=== PATIENT | male | born 1960 | race Caucasian/White ===

== ENCOUNTER 2016-07-10 11:30 | Inpatient (IN) ==
[2016-07-10] MEDS ORDERED: Ipratropium/Albuterol Neb 3 ML IH ONE ×2 (11:35→12:05)
[2016-07-10] MEDS ORDERED: Furosemide 40 MG/4 ML VIAL IVP ONE ×2 (11:35→12:05)
[2016-07-10] MEDS ORDERED: methylPREDNISolone 125 MG/2 ML VIAL IVP ONE (11:35)
[2016-07-10 11:49] LABS: ABG Base Excess 27.9 mEq/L (-2.0 to 3.0); ABG HCO3 59.2 mEQ/L (21-27); ABG PH 7.38 pH Units (7.32-7.45); ABG TCO2 > 60.0 mEq/L (20-26)
[2016-07-10 11:50] LABS: ABG Oxygen Saturation 72 % (95-98)
[2016-07-10 11:51] LABS: ABG PCO2 100 mmHg (35-45); ABG PO2 39 mmHg (85-104)
[2016-07-10 11:52] LABS: Blood Gas FiO2 44 %
--- NOTE | 2016-07-10 11:52 | Emergency Department Note ---
Disposition Clinical Impression: Acute on chronic respiratory failure with hypercapnia, Hypoxemia, Acute exacerbation of chronic obstructive airways disease CHF (congestive heart failure) Qualifiers: Congestive heart failure type: unspecified congestive heart failure type Congestive heart failure chronicity: acute on chronic Qualified Code(s): I50.9 - Heart failure, unspecified Disposition: Admitted As Inpatient Condition: Fair Time of Disposition: 13:19 SOB HPI - General Chief Complaint: ED Shortness of Breath/Dyspnea Stated Complaint: SOB, weak Time Seen by Provider: 07/10/16 11:35 Source: patient, family Limitations: no limitations Nursing Notes Reviewed: Yes Vital Signs Reviewed: Yes - History of Present Illness Patient is a 55-year-old male who presents to [facility] ED with a chief complaint of difficulty breathing. States his symptoms started several days ago with a cough and he was seen at [facility] last night. He was given a breathing treatment, steroids, instructed to use his CPAP at home. Patient's states he is not very compliant with his CPAP at home. Past medical history significant for COPD and CHF, obesity hypoventilation, atrial fib. He was admitted to the ICU back in May for acute on chronic respiratory failure. On presentation to the emergency department, patient is not able to say more than 2 words at a time before breathing. He took an excessive amount of energy to just moved from the wheelchair to the bed. On 5 L of oxygen, patient was saturating 76%. Pt Subjective Complaint: shortness of breath, chest pain Onset (ago): day(s) Context: recent illness Severity: severe Consistency/Duration: gradually worsening Improves with: nothing Worsens with: nothing Known history of: COPD, congestive heart failure Associated symptoms: Reports: chest pain, cough. Denies: fever, nausea/vomiting , abdominal pain Treatment prior to arrival: oxygen, bronchodilator Cough present: No - Related Data Home oxygen amount: CPAP (and 5L nasal cannula O2) Home Medications Medication Instructions Recorded Confirmed Amiodarone [Cordarone] 200 mg PO BID 05/04/15 05/23/16 Atorvastatin Calcium [Lipitor] 80 mg PO DAILY 05/04/15 05/23/16 Fluticasone Propionate Nasal 50 mcg NS DAILY 05/04/15 05/23/16 [Flonase] Furosemide [Lasix] 20 mg PO BID 05/04/15 05/23/16 Multivitamin/Ferrous Sulfate 1 tab PO DAILY 05/04/15 05/23/16 [One-Daily Zjdoy-Nvz-Eqai Tab] Fluticasone/Salmeterol [Advair Hfa 1 puff IH BID 05/05/16 05/23/16 45-21 Mcg Inhaler] Potassium Chloride [Klor-Con 10] 20 meq PO DAILY 05/05/16 05/23/16 Warfarin [Coumadin] 5 mg PO MOTUWETHFRSA 05/05/16 05/23/16 Warfarin perPT [Coumadin perPT] 7 mg PO WRIGHT 05/05/16 05/23/16 Previous Rx's Medication Instructions Recorded Albuterol Neb [Proventil Neb] 2.5 mg IH Q4HR PRN 14 Days 05/07/16 Citalopram [CeleXA] 40 mg PO DAILY #20 tablet 05/28/16 Oxygen 5 l IH AD #0 05/28/16 PredniSONE 30 mg PO DAILY 9 Days 05/28/16 Cephalexin [Keflex] 500 mg PO BID #20 capsule 07/09/16 LORazepam [Ativan] 1 mg PO TID PRN #6 tablet 07/09/16 Allergies Allergy/AdvReac Type Severity Reaction Status Date / Time No Known Drug Allergies Allergy See Verified 05/22/16 18:38 Comments All systems ED: reviewed and negative except as stated. Past Medical History - Past Medical History Attestation: Yes The following information was validated with the patient. Source: patient Medical history: Reports: atrial fibrillation, CHF, COPD, other Surgical history: Reports: pacemaker/AICD Psychiatric history: Reports: depression - Social History Smoking Status: Former smoker Smokeless Tobacco Status: No Alcohol use: Reports: none Drug use: Reports: none Physical Exam - General Limitations: no limitations General appearance: alert, anxious - Head Head exam: atraumatic, normocephalic, normal inspection - Eye Eye exam: Present: normal appearance, PERRL, EOMI - ENT ENT exam: normal exam, normal oropharynx, mucous membranes moist - Neck Neck exam: Present: normal inspection, full ROM, trachea midline - Chest Chest inspection: Present: normal inspection, symmetric chest wall rise - Respiratory Respiratory exam: Present: other (Decreased breath sounds bilaterally) - Cardiovascular Cardiovascular exam: Present: regular rate, normal rhythm, normal heart sounds - Abdominal Exam Abdominal exam: Present: soft, Non-Tender. Absent: tenderness, distention, guarding, rebound, rigidity - Extremities Exam Extremities exam: Present: normal inspection, full ROM. Absent: tenderness, pedal edema - Expanded Lower Extremity Exam Lower leg exam: Present: other (Venous stasis dermatitis) - Back Exam Back exam: Present: normal inspection, full ROM. Absent: tenderness - Neurological Exam Neurological exam: Present: alert, oriented X3 - Psychiatric Psychiatric exam: Present: normal affect, normal mood - Skin Skin exam: Present: warm, dry, intact, normal color Course Course Narrative: Patient seen and examined. Difficulty breathing for the last few days. Suspect COPD versus CHF exacerbation. 3 DuoNeb treatments ordered. We will place patient on BiPAP. Cardiopulmonary workup initiated. - Reevaluation(s) Reevaluation #1: Lab work shows mildly elevated lactic acid of 2.5, troponin 0.00, BNP in the 200s. Patient currently on BiPAP. Patient does have an elevated d-dimer of 1222. I do not feel like patient would not tolerate a CT of his chest at this time. Due to his hypoxemia with his PaO2 at 39, we will go ahead and do a VQ scan to rule out pulmonary embolus. We will admit for acute on chronic respiratory failure. I spoke with hospitalist Dr. Donald who has accepted patient for admission. Time: 13:18 Vital Signs Temperature 98.1 F 07/10/16 11:31 Pulse Rate 95 07/10/16 11:31 Respiratory Rate 30 07/10/16 11:31 Blood Pressure 136/91 07/10/16 11:31 O2 Sat by Pulse Oximetry 64 L 07/10/16 11:31 Temperature 98.1 F 07/10/16 11:31 Pulse Rate 70 07/10/16 12:45 Respiratory Rate 28 07/10/16 12:45 Blood Pressure 144/84 07/10/16 12:45 O2 Sat by Pulse Oximetry 96 07/10/16 12:45 Oxygen Delivery Oxygen Delivery Bipap Shortness of Breath/Dyspnea - Medical Records Medical records reviewed: Yes I reviewed the patient's medical records. - Lab Data Lab results reviewed: Yes I reviewed the patient's lab results. Result diagrams: 07/10/16 11:50 07/10/16 11:50 Lab Results 07/10/16 07/10/16 07/10/16 Range/Units 11:42 11:50 11:50 WBC 11.2 H (4.3-11.1) K/mcL RBC 4.01 L (4.19-5.50) M/mcL Hgb 10.2 L (12.9-16.9) g/dL Hct 37.0 L (37.5-50.1) % MCV 92.3 (83.0-100.0) fL MCH 25.4 L (28.0-33.3) pg MCHC 27.6 L (31.6-35.5) g/dL RDW 15.4 H (11.5-14.5) % Plt Count 243 (140-400) K/mcL MPV 9.7 (9.4-12.4) fL Immature Gran % 0.6 (0-4) % Seg Neutrophils % 88.1 % Lymphocytes % 5.0 % Monocytes % 6.1 % Eosinophils % 0.1 % Basophils % 0.1 % Neutrophils # 9.9 H (1.6-8.9) K/mcL Lymphocytes # 0.6 (0.6-4.6) K/mcL Monocytes # 0.7 (0.0-1.3) K/mcL Eosinophils # 0.0 (0.0-0.6) K/mcL Basophils # 0.0 (0.0-0.2) K/mcL Platelet Estimate Normal (Normal) Hypochromasia Present A (Not Present) Anisocytosis 2+ A (Not Present) Microcytosis Present A (Not Present) D-Dimer 1222 H (0-500) ng/mLFEU ABG pH 7.38 (7.32-7.45) pH Units ABG pCO2 100 H* (35-45) mmHg ABG pO2 39 L* (85-104) mmHg ABG HCO3 59.2 H (21-27) mEQ/L ABG Total CO2 > 60.0 H (20-26) mEq/L ABG O2 Saturation 72 L (95-98) % ABG Base Excess 27.9 H (-2.0 to 3.0) mEq/L Blood Gas Modality NC Inspired O2 44 % Sodium (136-145) mEq/L Potassium (3.5-4.5) mEq/L Chloride (98-109) mEq/L Carbon Dioxide (19-29) mEq/L BUN (8-26) mg/dL Creatinine (0.72-1.25) mg/dL Est GFR ( Amer) (> 60) Est GFR (Non-Af Amer) (> 60) BUN/Creatinine Ratio (6-26) Glucose (70-99) mg/dL Calculated Osmolality (280-300) Lactic Acid (0.5-2.2) mmol/L Calcium (8.6-10.8) mg/dL Troponin I (0-0.03) ng/mL B-Natriuretic Peptide (0-100) pg/mL 07/10/16 07/10/16 07/10/16 Range/Units 11:50 11:50 11:50 WBC (4.3-11.1) K/mcL RBC (4.19-5.50) M/mcL Hgb (12.9-16.9) g/dL Hct (37.5-50.1) % MCV (83.0-100.0) fL MCH (28.0-33.3) pg MCHC (31.6-35.5) g/dL RDW (11.5-14.5) % Plt Count (140-400) K/mcL MPV (9.4-12.4) fL Immature Gran % (0-4) % Seg Neutrophils % % Lymphocytes % % Monocytes % % Eosinophils % % Basophils % % Neutrophils # (1.6-8.9) K/mcL Lymphocytes # (0.6-4.6) K/mcL Monocytes # (0.0-1.3) K/mcL Eosinophils # (0.0-0.6) K/mcL Basophils # (0.0-0.2) K/mcL Platelet Estimate (Normal) Hypochromasia (Not Present) Anisocytosis (Not Present) Microcytosis (Not Present) D-Dimer (0-500) ng/mLFEU ABG pH (7.32-7.45) pH Units ABG pCO2 (35-45) mmHg ABG pO2 (85-104) mmHg ABG HCO3 (21-27) mEQ/L ABG Total CO2 (20-26) mEq/L ABG O2 Saturation (95-98) % ABG Base Excess (-2.0 to 3.0) mEq/L Blood Gas Modality Inspired O2 % Sodium 144 (136-145) mEq/L Potassium 4.8 H (3.5-4.5) mEq/L Chloride 89 L (98-109) mEq/L Carbon Dioxide 48 H* (19-29) mEq/L BUN 24 (8-26) mg/dL Creatinine 0.81 (0.72-1.25) mg/dL Est GFR ( Amer) > 60 (> 60) Est GFR (Non-Af Amer) > 60 (> 60) BUN/Creatinine Ratio 30 H (6-26) Glucose 130 H (70-99) mg/dL Calculated Osmolality 304 H (280-300) Lactic Acid 2.6 H (0.5-2.2) mmol/L Calcium 9.2 (8.6-10.8) mg/dL Troponin I 0.00 (0-0.03) ng/mL B-Natriuretic Peptide (0-100) pg/mL 07/10/16 Range/Units 11:50 WBC (4.3-11.1) K/mcL RBC (4.19-5.50) M/mcL Hgb (12.9-16.9) g/dL Hct (37.5-50.1) % MCV (83.0-100.0) fL MCH (28.0-33.3) pg MCHC (31.6-35.5) g/dL RDW (11.5-14.5) % Plt Count (140-400) K/mcL MPV (9.4-12.4) fL Immature Gran % (0-4) % Seg Neutrophils % % Lymphocytes % % Monocytes % % Eosinophils % % Basophils % % Neutrophils # (1.6-8.9) K/mcL Lymphocytes # (0.6-4.6) K/mcL Monocytes # (0.0-1.3) K/mcL Eosinophils # (0.0-0.6) K/mcL Basophils # (0.0-0.2) K/mcL Platelet Estimate (Normal) Hypochromasia (Not Present) Anisocytosis (Not Present) Microcytosis (Not Present) D-Dimer (0-500) ng/mLFEU ABG pH (7.32-7.45) pH Units ABG pCO2 (35-45) mmHg ABG pO2 (85-104) mmHg ABG HCO3 (21-27) mEQ/L ABG Total CO2 (20-26) mEq/L ABG O2 Saturation (95-98) % ABG Base Excess (-2.0 to 3.0) mEq/L Blood Gas Modality Inspired O2 % Sodium (136-145) mEq/L Potassium (3.5-4.5) mEq/L Chloride (98-109) mEq/L Carbon Dioxide (19-29) mEq/L BUN (8-26) mg/dL Creatinine (0.72-1.25) mg/dL Est GFR ( Amer) (> 60) Est GFR (Non-Af Amer) (> 60) BUN/Creatinine Ratio (6-26) Glucose (70-99) mg/dL Calculated Osmolality (280-300) Lactic Acid (0.5-2.2) mmol/L Calcium (8.6-10.8) mg/dL Troponin I (0-0.03) ng/mL B-Natriuretic Peptide 217 H (0-100) pg/mL - Radiology Data Radiology results reviewed: Yes I reviewed the patient's radiology results. - EKG Data EKG attestation: Yes I reviewed and interpreted this EKG. EKG results narrative: EKG done at 1143 shows normal sinus rhythm with a rate of [address] elevation or depression. Right axis deviation. Critical Care Time Critical Care Time: Yes Total Critical Care Time: 35 Attestation: Critical care time to manage this patient is respiratory distress was 35 minutes , this was exclusive of any separately billable procedures. Attestation Statement - Attestation Attestation: Patient was seen with resident physician. I reviewed the history, physical, assessment and plan, and agree with the findings. I also personally evaluated this patient and had [id number] time with this patient. 55-year-old male presents to the emergency department with respiratory distress. He is brought in via private vehicle with a chief complaint of increasing shortness of breath the last several days. Apparently he was seen in the hospital recently was diagnosed with CHF. He says though now he thinks this is his COPD. Patient is oxygen dependent at home he says he has somewhat between 5 and 10 L continuously. He also thinks that his legs might be increasing in swelling in diameter but they are always swollen since difficult to tell. He denies chest pain. On examination ENT is normal heart is regular rhythm and rate. Lungs no wheezing could be auscultated there is poor air exchanges and he does have crackles especially in the bases. He also has increased work of breathing. Extremities patient has marked swelling of the lower extremities which appears to be chronic in nature. He has skin changes associated with chronic swelling of the lower extremities. Neurologically patient is alert and oriented. Respiratory was contacted immediately upon arrival to place the patient on BiPAP to help his labored respiratory problem. Chest x-ray seems to indicate more CHF, he was treated with Lasix and breathing treatments. We will do complete cardiac and CHF workup, and he will require hospitalization for management of fluid overload and respiratory distress. His ABG demonstrates some respiratory compensation. I agree with the resident physician assessment and plan. Patient to receive CT scan of the chest on way to the floor. Case was discussed with hospitalist and admission was arranged.
[2016-07-10 12:06] LABS: Basophils % 0.1 %; Hemoglobin 10.2 g/dL (12.9-16.9); Immature Granulocytes % 0.6 % (0-4)
[2016-07-10 12:07] LABS: Eosinophils % 0.1 %; Lymphocytes # 0.6 K/mcL (0.6-4.6); Mean Corpuscular HGB Conc 27.6 g/dL (31.6-35.5); Mean Corpuscular Hemoglobin 25.4 pg (28.0-33.3); Mean Corpuscular Volume 92.3 fL (83.0-100.0); Mean Platelet Volume 9.7 fL (9.4-12.4); Monocytes # 0.7 K/mcL (0.0-1.3); Monocytes % 6.1 %; Neutrophils # 9.9 K/mcL (1.6-8.9); Platelet Count 243 K/mcL (140-400); Red Blood Count 4.01 M/mcL (4.19-5.50); Red Cell Distribution Width 15.4 % (11.5-14.5); Segmented Neutrophils % 88.1 %
[2016-07-10 12:19] LABS: BUN/Creatinine Ratio 30 (6-26); Blood Urea Nitrogen 24 mg/dL (8-26); Calcium 9.2 mg/dL (8.6-10.8); Chloride 89 mEq/L (98-109); Glucose 130 mg/dL (70-99); Osmolality,Calculated 304 (280-300); Potassium 4.8 mEq/L (3.5-4.5); Sodium 144 mEq/L (136-145); eGFR For African Americans > 60 (> 60); eGFR For Non-African Americans > 60 (> 60)
[2016-07-10 12:21] LABS: Carbon Dioxide 48 mEq/L (19-29)
[2016-07-10 12:27] LABS: Anisocytosis 2+ (Not Present); Hypochromasia Present (Not Present); Microcytosis Present (Not Present)
[2016-07-10 12:28] LABS: Platelet Estimate Normal (Normal)
[2016-07-10] MEDS ORDERED: Naloxone 0.4 MG/ML INJ IVP PRN (15:35)
[2016-07-10] MEDS ORDERED: Ondansetron 4 MG/2 ML VIAL IVP PRN (15:35)
[2016-07-10] MEDS ORDERED: Ipratropium/Albuterol Neb 3 ML IH PRN (15:40)
[2016-07-10] MEDS ORDERED: *HR* LORazepam 1 MG TABLET PO PRN (15:40)
[2016-07-10] MEDS ORDERED: Warfarin perPT PO PRN (15:51)
--- NOTE | 2016-07-10 15:55 | Internal Med History&Physical ---
Date of Encounter: 07/10/16 Time of Encounter: 15:00 Assessment and Plan (1) Acute on chronic respiratory failure with hypercapnia Current visit: Yes Status: Acute -Likely secondary to CHF decompensation and COPD exacerbation -History of noncompliance with CPAP support at home -continue bipap support at this time -f/u repeat ABG -Started aggressive diuretic and IV steroid therapy -continue to monitor O2 sat -O2 sat goal: 89-92% (2) Acute exacerbation of chronic obstructive airways disease Current visit: Yes Status: Acute -continue IV steroids and bronchodilator support -continue bipap support with breaks for meals today -O2 supplementation as needed -goal O2 sat: 89-92%, current O2 sat: 93% -patient educated about the need to remain compliant with his home CPAP. (3) HCAP (healthcare-associated pneumonia) Current visit: Yes Status: Acute -CT chest findings consistent with pneumonia -Discharged from the hospital for the same complains less than two months ago, will treat as HCAP at this time -Leukocytosis likely secondary to HCAP -continue IV abx -f/u blood cultures (4) CHF exacerbation Current visit: Yes Status: Acute Last 2D echo was in May 2015 consistent with LVEF of 50-55% f/u repeat 2D echo Received 80mg IV lasix in ER with good urine output continue aggressive diuresis monitor I/Os monitor daily weights continue O2 supplementation as needed consider cardiology eval if clinically worsens Qualifiers: Congestive heart failure type: unspecified congestive heart failure type Qualified Code(s): I50.9 - Heart failure, unspecified (5) Atrial fibrillation Current visit: No Status: Chronic Rate controlled with Amiodarone Anticoagulated with Coumadin Follow up INR and continue coumadin with goal INR: 2-3 Qualifiers: Atrial fibrillation type: chronic Qualified Code(s): I48.2 - Chronic atrial fibrillation (6) HLD (hyperlipidemia) Current visit: No Status: Chronic continue home medications Qualifiers: Hyperlipidemia type: mixed hyperlipidemia Qualified Code(s): E78.2 - Mixed hyperlipidemia (7) Morbid obesity due to excess calories Current visit: No Status: Chronic (8) GAVIN (obstructive sleep apnea) Current visit: No Status: Chronic patient educated about the need to be compliant with CPAP overnight, he is willing to comply at this time (9) Obesity hypoventilation syndrome Current visit: No Status: Chronic (10) Wound abscess Current visit: No Status: Acute patient to follow up with dermatology after discharge continue daily wound care Qualifiers: Qualified Code(s): T81.4XXA - Infection following a procedure, initial encounter (11) DVT prophylaxis Current visit: Yes Status: Acute anticoagulated with Coumadin Internal Medicine - H&P: HPI Chief complaint: shortness of breath Admitted From: Home Plans for Post Hospital Care: Transfer Long-Term Facility History of present illness: Mr. Rubalcava is a 55 year old male with past medical history of COPD on home oxygen, CHF, A. fib on Coumadin, hyperlipidemia, obstructive sleep apnea, morbid obesity with brought to the ER for evaluation of worsening shortness of breath and bilateral lower extremity edema. Patient is currently saturating well on bipap and states he feels better since admission. He is AAO x 3 and able to communicate well. His , who is present at bedside, reports that patient is bed bound, only gets up to use the bathroom, bathes onces a week, and has been noncompliant with using his CPAP at home. He wears home oxygen but she states he continues to deteriorate every time there a lapses in him using CPAP overnight. She states that for the last few days he has had worsening LE edema until earlier today he couldn't breathe due to which they are to bring him to the ER. In the ER patient received 80 mg of IV Lasix, Solu-Medrol IVP, and nebulizer treatment. He was placed on BiPAP support with adequate relief of shortness of breath. As time he saturating well on BiPAP, denies any chest pain, palpitations, sore throat, cough, abdominal pain, nausea, vomiting, fever , or chills. Of Note patient has a skin abscess on left shoulder for which he has been trying to seek dermatological evaluation. As per his , this abscess is continuously draining and they do daily wound care. Patient and family request social work consult for for documentation of advance directives and living will prior to discharge. Past Med Surg Social Fam HX - Past Medical History Medical history: atrial fibrillation, CHF, COPD, other Psychiatric history: anxiety, depression - Past Surgical History Surgical History: pacemaker/AICD - Social History Smoking Status: Former smoker Packs per day: 1 Smokeless Tobacco Status: No Alcohol use: none Drug use: none - Family History Mother Family Member Ethnicity: Non- Living Status: Still Living Hx Family Cardiac Disorders: No Hx Family Respiratory Disorders: No Hx Family Cancer: Yes Hx Family GI Disorders: No Hx Family Endocrine Disorder: No Father Family Member Ethnicity: Non- Living Status: Hx Family Cancer: Yes Hx Family GI Disorders: No Hx Family Genitourinary Disorders: No Internal Medicine - H&P: Meds Amiodarone [Cordarone] 200 mg PO BID 05/04/15 [History] Atorvastatin Calcium [Lipitor] 80 mg PO DAILY 05/04/15 [History] Fluticasone Propionate Nasal [Flonase] 50 mcg NS DAILY 05/04/15 [History] Furosemide [Lasix] 20 mg PO BID 05/04/15 [History] Multivitamin/Ferrous Sulfate [One-Daily Jndsa-Yyu-Bmih Tab] 1 tab PO DAILY 05/04 [History] Fluticasone/Salmeterol [Advair Hfa 45-21 Mcg Inhaler] 1 puff IH BID 05/05/16 [ History] Potassium Chloride [Klor-Con 10] 20 meq PO DAILY 05/05/16 [History] Warfarin [Coumadin] 5 mg PO MOTUWETHFRSA 05/05/16 [History] Warfarin perPT [Coumadin perPT] 7 mg PO WRIGHT 05/05/16 [History] Albuterol Neb [Proventil Neb] 2.5 mg IH Q4HR PRN 14 Days 05/07/16 [Rx] Citalopram [CeleXA] 40 mg PO DAILY #20 tablet 05/28/16 [Rx] Oxygen 5 l IH AD #0 05/28/16 [Rx] PredniSONE 30 mg PO DAILY 9 Days 05/28/16 [Rx] Cephalexin [Keflex] 500 mg PO BID #20 capsule 07/09/16 [Rx] LORazepam [Ativan] 1 mg PO TID PRN #6 tablet 07/09/16 [Rx] Allergies No Known Drug Allergies Allergy (Verified 05/22/16 18:38) See Comments All Systems PM: A 10-system review of systems was performed and is negative for pertinent findings except as documented above in the HPI. - Constitutional Constitutional: as per HPI - Constitutional Vitals: Temp Pulse Resp BP Pulse Ox 98.4 F 71 20 148/99 90 L 07/10/16 14:31 07/10/16 14:31 07/10/16 14:31 07/10/16 14:31 07/10/16 14:31 General appearance: Present: A&O X 3, morbidly obese, no acute distress, answers questions appropriately - Head Head exam: Present: atraumatic, normocephalic - Eye Eye exam: Present: conjuntiva pink, sclera anicteric - Respiratory Respiratory exam: Present: decreased breath sounds. Absent: wheezes - Cardiovascular Cardiovascular exam: Present: RRR, +S1, +S2 - GI/Abdominal GI/Abdominal exam: Present: distended (morbidly obese), normal bowel sounds. Absent: tenderness - Extremities Exam Extremities exam: Present: pedal edema (bilateral 2+ LE edema extending to mid flowers), warm, radial pulses palpable and symetrical. Absent: calf tenderness - Neurological Exam Neurological exam: Present: alert, oriented X3, no focal deficits - Psychiatric Psychiatric exam: Present: normal affect, normal mood Internal Med - H&P Results - Labs CBC & Chem 7: 07/10/16 11:50 07/10/16 11:50 - Impressions ITS Impressions Chest CTA 07/10/16 13:21 IMPRESSION: No CT evidence of pulmonary embolism as above. Small to moderate bilateral pleural effusions with associated bilateral lower lobe dependent consolidation, likely passive atelectasis. Pneumonia cannot be completely excluded. Diffuse bilateral pulmonary parenchymal ground-glass opacity as well as some interlobular septal thickening most compatible with pulmonary edema. D/ / Sissy Clay Cha, MD / Sissy Clay Cha, MD Interpreting Provider: Sissy Clay Cha, MD
[2016-07-10 16:17] LABS: INR 1.5; Prothrombin Time 16.5 Seconds (9.4-12.1)
[2016-07-10] MEDS: methylPREDNISolone 125 MG/2 ML VIAL IVP SCH ×2 (16:17→23:36)
[2016-07-10] MEDS: Piperacillin/Tazobactam 3.375 GM in D5% in Water (Mini-Bag+) 100 ML IVPB SCH ×2 (16:17→23:34)
[2016-07-10] MEDS: Vancomycin 2,000 MG in D5% in Water 500 ML IVPB SCH (16:18)
[2016-07-10] MEDS: Ipratropium/Albuterol Neb 3 ML IH SCH ×2 (17:01→21:00)
[2016-07-10 17:10] LABS: ABG HCO3 49.8 mEQ/L (21-27); ABG PH 7.37 pH Units (7.32-7.45); ABG TCO2 68.8 mEq/L (20-26)
[2016-07-10 17:11] LABS: ABG Base Excess 32.7 mEq/L (-2.0 to 3.0); ABG Oxygen Saturation 72 % (95-98)
[2016-07-10 17:12] LABS: Blood Gas FiO2 50 %
[2016-07-10 17:13] LABS: ABG PCO2 113 mmHg (35-45); ABG PO2 39 mmHg (85-104)
[2016-07-10] MEDS ORDERED: *HR* Warfarin 7.5 MG TABLET PO ONE (17:45)
[2016-07-10] MEDS: *HR* Amiodarone 200 MG TABLET PO SCH (19:37)
[2016-07-10] MEDS: Furosemide 40 MG/4 ML VIAL IVP SCH (19:38)
[2016-07-10] MEDS: Budesonide/Formoterol 160/4.5 MDI IH SCH (21:00)
[2016-07-11] MEDS: Ipratropium/Albuterol Neb 3 ML IH SCH ×7 (00:48→23:08)
[2016-07-11 03:43] LABS: INR 1.7; Prothrombin Time 18.1 Seconds (9.4-12.1)
[2016-07-11 03:48] LABS: Monocytes # 0.3 K/mcL (0.0-1.3); Monocytes % 2.5 %; Red Blood Count 4.22 M/mcL (4.19-5.50)
[2016-07-11 03:49] LABS: Basophils % 0.1 %; Hematocrit 38.7 % (37.5-50.1); Hemoglobin 10.7 g/dL (12.9-16.9); Immature Granulocytes % 0.7 % (0-4); Lymphocytes # 0.3 K/mcL (0.6-4.6); Lymphocytes % 3.1 %; Mean Corpuscular HGB Conc 27.6 g/dL (31.6-35.5); Mean Corpuscular Hemoglobin 25.4 pg (28.0-33.3); Mean Corpuscular Volume 91.7 fL (83.0-100.0); Mean Platelet Volume 9.8 fL (9.4-12.4); Neutrophils # 9.7 K/mcL (1.6-8.9); Platelet Count 239 K/mcL (140-400); Red Cell Distribution Width 15.2 % (11.5-14.5); Segmented Neutrophils % 93.6 %
[2016-07-11 03:55] LABS: BUN/Creatinine Ratio 28 (6-26); Blood Urea Nitrogen 26 mg/dL (8-26); Calcium 9.1 mg/dL (8.6-10.8); Chloride 85 mEq/L (98-109); Glucose 172 mg/dL (70-99); Magnesium 2.6 mg/dL (1.6-2.6); Osmolality,Calculated 305 (280-300); Phosphorous 4.7 mg/dL (2.3-4.7); Potassium 4.7 mEq/L (3.5-4.5); Sodium 143 mEq/L (136-145); eGFR For African Americans > 60 (> 60); eGFR For Non-African Americans > 60 (> 60)
[2016-07-11] MEDS: Vancomycin 2,000 MG in D5% in Water 500 ML IVPB SCH ×2 (03:57→16:08)
[2016-07-11 04:07] LABS: Carbon Dioxide 49 mEq/L (19-29); Hypochromasia Present (Not Present)
[2016-07-11 04:08] LABS: Platelet Estimate Normal (Normal); Polychromasia 2+ (Not Present)
[2016-07-11] MEDS: Budesonide/Formoterol 160/4.5 MDI IH SCH ×2 (08:18→20:17)
[2016-07-11] MEDS: Piperacillin/Tazobactam 3.375 GM in D5% in Water (Mini-Bag+) 100 ML IVPB SCH (09:29)
[2016-07-11] MEDS: methylPREDNISolone 125 MG/2 ML VIAL IVP SCH ×3 (09:30→23:40)
[2016-07-11] MEDS: Furosemide 40 MG/4 ML VIAL IVP SCH ×2 (09:30→21:14)
[2016-07-11] MEDS: Fluticasone Propionate Nasal 50 MCG/SPRAY BOTTLE NS SCH (09:34)
[2016-07-11] MEDS: *HR* Amiodarone 200 MG TABLET PO SCH ×2 (09:35→21:14)
--- NOTE | 2016-07-11 10:56 | Internal Med Progress Note ---
Date of Encounter: 07/11/16 Time of Encounter: 10:54 - Assessment and plan (1) Acute exacerbation of chronic obstructive airways disease Current Visit: Yes Status: Acute Assessment and plan: Acute on chronic hypoxic and hypercapnic respiratory failure due to combination of healthcare associated pneumonia present upon admission with acute diastolic CHF exacerbation Switch Zosyn to cefepime day 1 Continue vancomycin day 2 Continue Lasix IV, strict I's and O's and daily weight Echocardiogram ordered Continue Solu-Medrol, and oxygen therapy (2) Acute on chronic respiratory failure with hypercapnia Current Visit: Yes Status: Acute (3) CHF exacerbation Current Visit: Yes Status: Acute Qualifiers: Congestive heart failure type: diastolic Qualified Code(s): I50.33 - Acute on chronic diastolic (congestive) heart failure (4) HCAP (healthcare-associated pneumonia) Current Visit: Yes Status: Acute (5) Atrial fibrillation Current Visit: No Status: Chronic Assessment and plan: Continue Coumadin, now therapeutic May start metoprolol Qualifiers: Atrial fibrillation type: chronic Qualified Code(s): I48.2 - Chronic atrial fibrillation (6) Depression Current Visit: No Status: Chronic Assessment and plan: Continue Celexa Qualifiers: Depression Type: unspecified Qualified Code(s): F32.9 - Major depressive disorder, single episode, unspecified (7) HLD (hyperlipidemia) Current Visit: No Status: Chronic Qualifiers: Hyperlipidemia type: mixed hyperlipidemia Qualified Code(s): E78.2 - Mixed hyperlipidemia (8) Hypoventilation associated with obesity syndrome Current Visit: No Status: Chronic (9) Morbid obesity due to excess calories Current Visit: No Status: Chronic Assessment and plan: High risk due to respiratory failure - Time Spent With Patient Greater than 35 minutes - Subjective Interval history: Still feeling very short of breath, bringing up less phlegm, no abdominal pain, no dysuria, no fevers overnight, no diarrhea. Has been gaining weight - Constitutional Vitals: Temp Pulse Resp BP Pulse Ox 98.0 F 74 16 155/94 93 L 07/11/16 07:17 07/11/16 07:17 07/11/16 08:18 07/11/16 07:17 07/11/16 08:18 General appearance: Present: A&O X 3, morbidly obese, no acute distress, answers questions appropriately - Head Head exam: Present: atraumatic, normocephalic - Eye Eye exam: Present: PERRL, conjuntiva pink, sclera anicteric Pupils: Present: PERRL - Neck Neck exam general surgery: Present: supple, trachea midline. Absent: lymphadenopathy - Respiratory Respiratory exam: Present: CTAB, rales (Bibasilar blunted sounds with diffuse crackles). Absent: accessory muscle use, rhonchi, wheezes - Cardiovascular Cardiovascular exam: Present: RRR, +S1, +S2. Absent: diastolic murmur, gallop, rubs, systolic murmur - GI/Abdominal GI/Abdominal exam: Present: normal bowel sounds, soft, no peritoneal signs. Absent: distended, tenderness - Extremities Exam Extremities exam: Present: pedal edema, warm, radial pulses palpable and symetrical. Absent: calf tenderness, cyanotic Additional comments: +2 edema with chronic changes of the skin - Neurological Exam Neurological exam: Present: CN II-XII intact, oriented X3, no focal deficits. Absent: pronater drift, facial droop, speech deficit - Skin Skin exam: Present: dry, intact Internal Medicine: Result - Labs CBC & Chem 7: 07/11/16 03:21 07/11/16 03:21 Labs: Short CBC 07/11/16 Range/Units 03:21 WBC 10.4 (4.3-11.1) K/mcL Hgb 10.7 L (12.9-16.9) g/dL Hct 38.7 (37.5-50.1) % Plt Count 239 (140-400) K/mcL Neutrophils # 9.7 H (1.6-8.9) K/mcL BMP 07/11/16 03:21 Sodium 143 Potassium 4.7 H Chloride 85 L Carbon Dioxide 49 H* BUN 26 Creatinine 0.94 Glucose 172 H Calcium 9.1 - ABG Interpretation ABG results: ABG ABG pH 7.37 pH Units (7.32-7.45) 07/10/16 17:00 ABG pCO2 113 mmHg (35-45) H* 07/10/16 17:00 ABG pO2 39 mmHg (85-104) L* 07/10/16 17:00 ABG O2 Saturation 72 % (95-98) L 07/10/16 17:00 PT/INR, D-dimer PT 18.1 Seconds (9.4-12.1) H 07/11/16 03:21 D-Dimer 1222 ng/mLFEU (0-500) H 07/10/16 11:50 Consult Discharge Plan - Plan Referrals: NO,PCP [Primary Care Provider] -
[2016-07-11] MEDS ORDERED: Perflutren Lipid Microsphere 1.3 ML in 0.9 % Sodium Chloride 8.7 ML IVP ONE (12:05)
[2016-07-11] MEDS: Cefepime HCl 1,000 MG in D5% in Water (Mini-Bag+) 100 ML IVPB SCH ×2 (12:30→23:41)
--- NOTE | 2016-07-11 15:00 | Electrocardiograph Report ---
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
[2016-07-11] MEDS ORDERED: *HR* Warfarin 5 MG TABLET PO SCH (18:00)
[2016-07-11] MEDS ORDERED: *HR* OxyCODONE Immed Rel 5 MG TABLET PO PRN (22:36)
[2016-07-12 02:20] LABS: Hemoglobin 10.4 g/dL (12.9-16.9)
[2016-07-12 02:22] LABS: Mean Corpuscular HGB Conc 27.4 g/dL (31.6-35.5); Mean Corpuscular Hemoglobin 24.5 pg (28.0-33.3); Mean Corpuscular Volume 89.6 fL (83.0-100.0); Mean Platelet Volume 9.9 fL (9.4-12.4); Platelet Count 249 K/mcL (140-400); Red Blood Count 4.24 M/mcL (4.19-5.50)
[2016-07-12 02:24] LABS: INR 2.3
[2016-07-12 02:36] LABS: BUN/Creatinine Ratio 36 (6-26); Blood Urea Nitrogen 29 mg/dL (8-26); Calcium 8.9 mg/dL (8.6-10.8); Chloride 84 mEq/L (98-109); Glucose 162 mg/dL (70-99); Osmolality,Calculated 303 (280-300); Potassium 4.2 mEq/L (3.5-4.5); Sodium 142 mEq/L (136-145); eGFR For African Americans > 60 (> 60); eGFR For Non-African Americans > 60 (> 60)
[2016-07-12 02:40] LABS: Carbon Dioxide 48 mEq/L (19-29)
[2016-07-12] MEDS: Vancomycin 2,000 MG in D5% in Water 500 ML IVPB SCH ×2 (03:33→16:34)
[2016-07-12] MEDS: Ipratropium/Albuterol Neb 3 ML IH SCH ×5 (05:29→20:33)
[2016-07-12 05:55] LABS: ABG Base Excess 32.7 mEq/L (-2.0 to 3.0); ABG HCO3 63.2 mEQ/L (21-27); ABG Oxygen Saturation 96 % (95-98); ABG PH 7.45 pH Units (7.32-7.45); ABG PO2 80 mmHg (85-104); Blood Gas FiO2 50 %
[2016-07-12 05:56] LABS: ABG PCO2 91 mmHg (35-45)
[2016-07-12] MEDS: Budesonide/Formoterol 160/4.5 MDI IH SCH ×2 (08:10→20:33)
[2016-07-12] MEDS ORDERED: Aminoglycoside Consult 1 EACH MC ONE (08:16)
[2016-07-12] MEDS: Furosemide 40 MG/4 ML VIAL IVP SCH ×2 (08:25→20:56)
[2016-07-12] MEDS: methylPREDNISolone 125 MG/2 ML VIAL IVP SCH ×2 (08:25→16:34)
[2016-07-12] MEDS: *HR* Amiodarone 200 MG TABLET PO SCH ×2 (08:26→20:58)
[2016-07-12] MEDS: *HR* LORazepam 1 MG TABLET PO SCH ×4 (08:26→21:05)
[2016-07-12] MEDS: Cefepime HCl 1,000 MG in D5% in Water (Mini-Bag+) 100 ML IVPB SCH (11:48)
[2016-07-12] MEDS: Lactobacillus 1 EACH CAP.SPRINK PO SCH ×2 (11:48→20:58)
[2016-07-12] MEDS: Fluticasone Propionate Nasal 50 MCG/SPRAY BOTTLE NS SCH (11:48)
[2016-07-12] MEDS ORDERED: *HR* Warfarin 2.5 MG TABLET PO ONE (18:00)
[2016-07-12 18:21] LABS: ABG Base Excess 28.4 mEq/L (-2.0 to 3.0); ABG Oxygen Saturation 96 % (95-98); ABG PH 7.36 pH Units (7.32-7.45); ABG PO2 86 mmHg (85-104); ABG TCO2 64.3 mEq/L (20-26)
[2016-07-12 18:23] LABS: ABG PCO2 108 mmHg (35-45); Blood Gas FiO2 60 %
--- NOTE | 2016-07-12 18:49 | Internal Med Progress Note ---
Date of Encounter: 07/12/16 Time of Encounter: 13:10 - Assessment and plan (1) Acute exacerbation of chronic obstructive airways disease Current Visit: Yes Status: Acute Assessment and plan: Continue Solu-Medrol, bronchodilators and oxygen therapy (2) Acute on chronic respiratory failure with hypercapnia Current Visit: Yes Status: Acute Assessment and plan: Possibly due to combination of acute exacerbation of diastolic CHF, COPD exacerbation and obesity hypoventilation syndrome. CTA chest is not conclusive for pneumonia. Continue BiPAP therapy, intravenous Lasix, Solu-Medrol and bronchodilators. (3) CHF exacerbation Current Visit: Yes Status: Acute Assessment and plan: Continue with intravenous Lasix. Monitor intake and output. Consider cardiology consultation. Qualifiers: Congestive heart failure type: diastolic Qualified Code(s): I50.33 - Acute on chronic diastolic (congestive) heart failure (4) DVT prophylaxis Current Visit: No Status: Acute Assessment and plan: Patient is on warfarin with therapeutic INR. No other anticoagulation required at this time. (5) Obesity hypoventilation syndrome Current Visit: No Status: Chronic Assessment and plan: Patient had poor compliance with CPAP therapy at home. Patient is counseled to use the CPAP on regular basis (6) Atrial fibrillation Current Visit: No Status: Chronic Assessment and plan: Rate controlled. Continue amiodarone and Coumadin - INR is therapeutic Qualifiers: Atrial fibrillation type: chronic Qualified Code(s): I48.2 - Chronic atrial fibrillation - Subjective Interval history: Pt is seen and examined at the bedside and chart reviewed. Pt reports feeling better today. He reports some cough with expectoration. Shortness of breath is improving. Denies significant pain, nausea, vomiting, fever, chills. - Constitutional Vitals: Temp Pulse Resp BP Pulse Ox 98.8 F 69 14 143/89 96 07/12/16 15:52 07/12/16 15:52 07/12/16 16:21 07/12/16 16:21 07/12/16 16:21 General appearance: Present: A&O X 3, morbidly obese, no acute distress, answers questions appropriately Exam: General: Obese. Not in acute distress at the time of my evaluation Lungs: Clear to auscultation Cardiac: Bilateral crackles heard. No significant murmurs Abdomen: Obese. Soft, non tender. Bowel sounds present. Umbilical hernia present. Neurological: Alert and oriented. No gross localizing deficits Psych: Not agrressive or agitated Extremities: chronic leg edema present Skin: Dry skin Internal Medicine: Result - Labs CBC & Chem 7: 07/12/16 01:42 07/12/16 01:42 Labs: Short CBC 07/12/16 Range/Units 01:42 WBC 11.5 H (4.3-11.1) K/mcL Hgb 10.4 L (12.9-16.9) g/dL Hct 38.0 (37.5-50.1) % Plt Count 249 (140-400) K/mcL BMP 07/12/16 01:42 Sodium 142 Potassium 4.2 Chloride 84 L Carbon Dioxide 48 H* BUN 29 H Creatinine 0.80 Glucose 162 H Calcium 8.9 Microbiology 07/10/16 13:05 Urine,Catheterized Urine Culture - Final No growth. - ABG Interpretation ABG results: ABG ABG pH 7.36 pH Units (7.32-7.45) 07/12/16 18:00 ABG pCO2 108 mmHg (35-45) H* 07/12/16 18:00 ABG pO2 86 mmHg (85-104) 07/12/16 18:00 ABG O2 Saturation 96 % (95-98) 07/12/16 18:00 PT/INR, D-dimer PT 25.0 Seconds (9.4-12.1) H 07/12/16 01:42 D-Dimer 1222 ng/mLFEU (0-500) H 07/10/16 11:50 - Impressions ITS Impressions Chest X-Ray 07/10/16 11:35 IMPRESSION: 1. Unchanged congestive heart failure. D/ / Donald Kahn MD / Donald Kahn MD Interpreting Provider: Donald Kahn MD Chest CTA 07/10/16 13:21 IMPRESSION: No CT evidence of pulmonary embolism as above. Small to moderate bilateral pleural effusions with associated bilateral lower lobe dependent consolidation, likely passive atelectasis. Pneumonia cannot be completely excluded. Diffuse bilateral pulmonary parenchymal ground-glass opacity as well as some interlobular septal thickening most compatible with pulmonary edema. D/ / Sissy Clay Cha, MD / Sissy Clay Cha, MD Interpreting Provider: Sissy Clay Cha, MD Consult Discharge Plan - Plan Referrals: Jay Cool MD [NPP Staff] - 07/21/16 10:00 am NO,PCP [Primary Care Provider] - Erik Zayas DO [Partnered Physician] - (sent web request on 07-11-16 @ [phone])
[2016-07-12 20:37] LABS: ABG Base Excess 28.1 mEq/L (-2.0 to 3.0); ABG HCO3 60.4 mEQ/L (21-27); ABG Oxygen Saturation 96 % (95-98); ABG PH 7.36 pH Units (7.32-7.45); ABG PO2 88 mmHg (85-104); ABG TCO2 63.7 mEq/L (20-26)
[2016-07-12 20:39] LABS: Blood Gas FiO2 50 %
[2016-07-12 20:40] LABS: ABG PCO2 107 mmHg (35-45)
[2016-07-13] MEDS: Ipratropium/Albuterol Neb 3 ML IH SCH ×7 (00:24→22:55)
[2016-07-13 03:32] LABS: INR 2.5; Prothrombin Time 28.2 Seconds (9.4-12.1)
[2016-07-13 03:38] LABS: Alanine Aminotransferase 14 Units/L (0-55); Albumin 2.8 g/dL (3.5-5.0); Albumin/Globulin Ratio 0.8 (1.1-2.2); Alkaline Phosphatase 81 Units/L (38-126); Aspartate Amino Transferase 14 Units/L (5-34); BUN/Creatinine Ratio 38 (6-26); Bilirubin,Total 0.5 mg/dL (0.2-1.2); Blood Urea Nitrogen 30 mg/dL (8-26); C-Reactive Protein 7 mg/L (Less than 5); Calcium 8.9 mg/dL (8.6-10.8); Chloride 86 mEq/L (98-109); Globulin 3.4 g/dL (2.4-3.5); Glucose 137 mg/dL (70-99); Osmolality,Calculated 298 (280-300); Potassium 4.2 mEq/L (3.5-4.5); Sodium 140 mEq/L (136-145); Total Protein 6.2 g/dL (6.0-8.3); eGFR For African Americans > 60 (> 60); eGFR For Non-African Americans > 60 (> 60)
[2016-07-13 03:45] LABS: Carbon Dioxide 49 mEq/L (19-29)
[2016-07-13 04:31] LABS: ABG Base Excess 30.8 mEq/L (-2.0 to 3.0); ABG HCO3 60.2 mEQ/L (21-27); ABG Oxygen Saturation 93 % (95-98); ABG PH 7.49 pH Units (7.32-7.45); ABG PO2 62 mmHg (85-104); ABG TCO2 62.6 mEq/L (20-26); Blood Gas FiO2 35 %
[2016-07-13 04:32] LABS: ABG PCO2 79 mmHg (35-45)
[2016-07-13] MEDS ORDERED: MethylPREDNISolone 40 MG/ML VIAL IVP SCH (06:00)
[2016-07-13] MEDS: Budesonide/Formoterol 160/4.5 MDI IH SCH ×2 (07:58→20:02)
[2016-07-13] MEDS: Lactobacillus 1 EACH CAP.SPRINK PO SCH ×2 (08:34→20:16)
[2016-07-13] MEDS: *HR* LORazepam 1 MG TABLET PO SCH ×3 (08:34→16:11)
[2016-07-13] MEDS: *HR* Amiodarone 200 MG TABLET PO SCH ×2 (08:34→20:20)
[2016-07-13] MEDS: Furosemide 40 MG/4 ML VIAL IVP SCH (08:35)
--- NOTE | 2016-07-13 10:45 | Pulmonology Consult Note ---
Date of Encounter: 07/13/16 Time of Encounter: 10:44 Assessment and Plan (1) Acute on chronic respiratory failure with hypercapnia Current Visit: Yes Status: Acute This appears to be secondary to noninvasive positive pressure noncompliance and decompensated heart failure. Does not have COPD exacerbation and I doubt that is secondary to an infectious etiology i.e. pneumonia and would thus stop antibiotics. I did send off respiratory infectious panel at sake of completeness including influenza although this is very unlikely Would continue bilevel support at this time with naps and when sleeping Supplemental oxygen to increase saturations to greater than 88 1092% Check morning ABG Total extensive conversation with patient that he has had multiple hospitalizations with multiple intubations in the past for decompensated respiratory failure I stated that unless he has strict compliance with BiPAP diuretic regimen and bronchodilators at home that he would be subjected to these recurrent exacerbations and would risk of . Offer him possibility of tracheostomy placement to circumvent the need for bilevel support patient said he would consider this. (2) Heart failure with preserved ejection fraction Current Visit: Yes Status: Acute Appears decompensated diastolic heart failure would recommend Lasix drip given severity of volume overload H renal function panel twice daily and replace electrolytes per protocol goal -2 L today and hopefully tomorrow based upon renal function (3) Atrial fibrillation Current Visit: No Status: Chronic Rate control continue metoprolol continue anticoagulation primary team to manage Qualifiers: Atrial fibrillation type: chronic Qualified Code(s): I48.2 - Chronic atrial fibrillation (4) GAVIN (obstructive sleep apnea) Current Visit: No Status: Chronic Annual bilevel positive airway pressure support possibility of tracheostomy was offered to the patient (5) Obesity hypoventilation syndrome Current Visit: No Status: Chronic Remains on bilevel positive airway pressure support (6) COPD (chronic obstructive pulmonary disease) Current Visit: No Status: Chronic Her to have acute exacerbation agree with continued DuoNeb nebs every 4 hours as needed with Symbicort twice a day Qualifiers: COPD type: chronic bronchitis Chronic bronchitis type: unspecified Qualified Code(s): J42 - Unspecified chronic bronchitis (7) Metabolic alkalosis Current Visit: Yes Status: Acute Patient has chronic metabolic alkalosis secondary to respiratory hypercarbia. Some evidence of postherpetic hypercapnic alkalosis is complicating this would give 3 doses of acetazolamide 250 mg. 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 Was admitted with acute on chronic hypoxic hypercapnic respiratory failure. Since admission patient has been treated with noninvasive positive pressure ventilation and diuresis has been given a couple of doses of steroids and inhaler therapy with improvement overall in mental status and respiratory status. Yesterday course had worsened to the point that intubation was considered overnight however patient responded to bilevel positive airway pressure support. In speaking with the patient today he says that he has been intermittently compliant with use of BiPAP at home there is use inhaler therapy daily has had inconsistent use of diuretic regimen. Denies any sick contacts cough sputum production fevers chills or hemoptysis. He is doing today by his and son at bedside who is corroborating his story. In general patient feels depressed that his quality of life is poor and he has had multiple hospitalizations for decompensated respiratory status. Past Med Surg Social Fam HX - Past Medical History Medical history: atrial fibrillation, CHF, COPD, other Psychiatric history: anxiety, depression - Past Surgical History Surgical History: pacemaker/AICD - Social History Smoking Status: Former smoker Packs per day: 1 Smokeless Tobacco Status: No Alcohol use: none Drug use: none - Family History Mother Family Member Ethnicity: Non- Living Status: Still Living Hx Family Cardiac Disorders: No Hx Family Respiratory Disorders: No Hx Family Cancer: Yes Hx Family GI Disorders: No Hx Family Endocrine Disorder: No Father Family Member Ethnicity: Non- Living Status: Hx Family Cancer: Yes Hx Family GI Disorders: No Hx Family Genitourinary Disorders: No Medications and Allergies Amiodarone [Cordarone] 200 mg PO DAILY 05/04/15 [History] Atorvastatin Calcium [Lipitor] 80 mg PO DAILY 05/04/15 [History] Fluticasone Propionate Nasal [Flonase] 50 mcg NS DAILY 05/04/15 [History] Furosemide [Lasix] 20 mg PO BID 05/04/15 [History] Multivitamin/Ferrous Sulfate [One-Daily Vonfc-Skr-Rhjj Tab] 1 tab PO DAILY 05/04 [History] Fluticasone/Salmeterol [Advair Hfa 45-21 Mcg Inhaler] 1 puff IH BID 05/05/16 [ History] Potassium Chloride [Klor-Con 10] 20 meq PO DAILY 05/05/16 [History] Warfarin [Coumadin] 5 mg PO [id number] 05/05/16 [History] Albuterol Neb [Proventil Neb] 2.5 mg IH Q4HR PRN 14 Days 05/07/16 [Rx] Citalopram [CeleXA] 40 mg PO DAILY #20 tablet 05/28/16 [Rx] Oxygen 5 l IH AD #0 05/28/16 [Rx] Warfarin [Coumadin] 7.5 mg PO WRIGHT 07/10/16 [History] Allergies No Known Drug Allergies Allergy (Verified 05/22/16 18:38) See Comments All Systems: A 10-system review of systems was performed and is negative for pertinent findings except as documented above in the HPI. Physical Examination Vital Signs: Vital Signs, Last 4 Hours Temp Pulse Resp BP Pulse Ox 07/13/16 08:00 91 18 132/69 91 L 07/13/16 07:59 14 95 07/13/16 07:50 98.2 F 07/13/16 07:00 91 General appearance: no acute distress Eyes: nonicteric ENT: oropharynx moist Neck: supple, no lymphadenopathy Effort: normal Inspection: normal Auscultation: bilateral: diminished breath sounds, rales Cardiovascular: regular rate and rhythm, irregular rhythm Gastrointestinal: normoactive bowel sounds, other (Morbidly obese) Integumentary: other (Chronic skin changes secondary to chronic lower extremity edema) Extremities: edema (Bilateral edema that is symmetric) normal mental status, non-focal exam mood appropriate Results - Laboratory Findings CBC and BMP: 07/12/16 01:42 07/13/16 03:15 ABG ABG pH 7.49 pH Units (7.32-7.45) H 07/13/16 04:20 ABG pCO2 79 mmHg (35-45) H* 07/13/16 04:20 ABG pO2 62 mmHg (85-104) L 07/13/16 04:20 ABG O2 Saturation 93 % (95-98) L 07/13/16 04:20 PT/INR, D-dimer PT 28.2 Seconds (9.4-12.1) H 07/13/16 03:15 D-Dimer 1222 ng/mLFEU (0-500) H 07/10/16 11:50 Abnormal lab findings: Abnormal lab results WBC 11.5 K/mcL (4.3-11.1) H 07/12/16 01:42 Hgb 10.4 g/dL (12.9-16.9) L 07/12/16 01:42 MCH 24.5 pg (28.0-33.3) L 07/12/16 01:42 MCHC 27.4 g/dL (31.6-35.5) L 07/12/16 01:42 RDW 15.0 % (11.5-14.5) H 07/12/16 01:42 Neutrophils # 9.7 K/mcL (1.6-8.9) H 07/11/16 03:21 Lymphocytes # 0.3 K/mcL (0.6-4.6) L 07/11/16 03:21 Polychromasia 2+ (Not Present) A 07/11/16 03:21 Hypochromasia Present (Not Present) A 07/11/16 03:21 Anisocytosis 2+ (Not Present) A 07/10/16 11:50 Microcytosis Present (Not Present) A 07/10/16 11:50 PT 28.2 Seconds (9.4-12.1) H 07/13/16 03:15 D-Dimer 1222 ng/mLFEU (0-500) H 07/10/16 11:50 ABG pH 7.49 pH Units (7.32-7.45) H 07/13/16 04:20 ABG pCO2 79 mmHg (35-45) H* 07/13/16 04:20 ABG pO2 62 mmHg (85-104) L 07/13/16 04:20 ABG HCO3 60.2 mEQ/L (21-27) H 07/13/16 04:20 ABG Total CO2 62.6 mEq/L (20-26) H 07/13/16 04:20 ABG O2 Saturation 93 % (95-98) L 07/13/16 04:20 ABG Base Excess 30.8 mEq/L (-2.0 to 3.0) H 07/13/16 04:20 Chloride 86 mEq/L (98-109) L 07/13/16 03:15 Carbon Dioxide 49 mEq/L (19-29) H* 07/13/16 03:15 BUN 30 mg/dL (8-26) H 07/13/16 03:15 BUN/Creatinine Ratio 38 (6-26) H 07/13/16 03:15 Glucose 137 mg/dL (70-99) H 07/13/16 03:15 POC Glucose 191 (58-89) H 07/12/16 22:13 C-Reactive Protein 7 mg/L (Less than 5) H 07/13/16 03:15 B-Natriuretic Peptide 217 pg/mL (0-100) H 07/10/16 11:50 Albumin 2.8 g/dL (3.5-5.0) L 07/13/16 03:15 Albumin/Globulin Ratio 0.8 (1.1-2.2) L 07/13/16 03:15 - Diagnostic Findings Chest x-ray: report reviewed, image reviewed CT scan - chest: report reviewed, image reviewed - Clinical Findings Intake & Output: Intake & Output 07/12/16 07/13/16 07/13/16 23:59 07:59 15:59 Intake Total 240 / 240 Output Total 1550 / 1550 950 / 950 Balance -1310 / -1310 -950 / -950 Weight 206.4 kg Consult Discharge Plan - Plan Referrals: Jay Cool MD [NPP Staff] - 07/21/16 10:00 am NO,PCP [Primary Care Provider] - Erik Zayas DO [Partnered Physician] - (sent web request on 07-11-16 @ [phone])
[2016-07-13] MEDS ORDERED: Furosemide 240 MG in D5% in Water 96 ML IVC SCH (11:42)
[2016-07-13] MEDS ORDERED: Calcium Gluconate 1,000 MG in D5% in Water 100 ML IVPB PRN ×2 (11:44→18:09)
[2016-07-13] MEDS ORDERED: Magnesium Sulfate 2 GM in D5% in Water 100 ML IVPB PRN ×2 (11:44→18:09)
[2016-07-13 13:34] LABS: BUN/Creatinine Ratio 35 (6-26); Blood Urea Nitrogen 30 mg/dL (8-26); Calcium 8.9 mg/dL (8.6-10.8); Chloride 88 mEq/L (98-109); Glucose 250 mg/dL (70-99); Osmolality,Calculated 309 (280-300); Potassium 4.1 mEq/L (3.5-4.5); Sodium 142 mEq/L (136-145); eGFR For African Americans > 60 (> 60); eGFR For Non-African Americans > 60 (> 60)
[2016-07-13 13:39] LABS: Carbon Dioxide 45 mEq/L (19-29)
[2016-07-13] MEDS: Fluticasone Propionate Nasal 50 MCG/SPRAY BOTTLE NS SCH (13:39)
[2016-07-13] MEDS: acetaZOLAMIDE 250 MG TABLET PO SCH ×3 (13:39→20:16)
--- NOTE | 2016-07-13 16:18 | Internal Med Progress Note ---
Date of Encounter: 07/13/16 Time of Encounter: 09:20 - Assessment and plan (1) Acute on chronic respiratory failure with hypercapnia Current Visit: Yes Status: Acute Assessment and plan: Possibly due to combination of acute exacerbation of diastolic CHF, COPD exacerbation and obesity hypoventilation syndrome. CTA chest is not conclusive for pneumonia. Continue BiPAP therapy, intravenous Lasix, and bronchodilators. Pulmonary consultation - discussed with pulmonary physician Dr. Grace (2) Acute exacerbation of chronic obstructive airways disease Current Visit: Yes Status: Resolved Assessment and plan: Continue bronchodilators and oxygen therapy (3) CHF exacerbation Current Visit: Yes Status: Acute Assessment and plan: Continue with intravenous Lasix. Monitor intake and output. Consider cardiology consultation. Qualifiers: Congestive heart failure type: diastolic Qualified Code(s): I50.33 - Acute on chronic diastolic (congestive) heart failure (4) DVT prophylaxis Current Visit: Yes Status: Acute Assessment and plan: Patient is on warfarin with therapeutic INR. No other anticoagulation required at this time. (5) Obesity hypoventilation syndrome Current Visit: No Status: Chronic Assessment and plan: Patient had poor compliance with CPAP therapy at home. Patient is counseled to use the CPAP on regular basis. Pulmonary consultation (6) Atrial fibrillation Current Visit: No Status: Chronic Assessment and plan: Rate controlled. Continue amiodarone and Coumadin - INR is therapeutic Qualifiers: Atrial fibrillation type: chronic Qualified Code(s): I48.2 - Chronic atrial fibrillation - Subjective Interval history: Pt is seen and examined at the bedside and chart reviewed. Pt reports feeling better today. He reports some cough with minimal expectoration. Shortness of breath is improving. Denies significant pain, nausea, vomiting, fever, chills. Overnight the patient was transferred to intensive care unit due to persisting acute on chronic respiratory failure. BiPAP settings were changed. - Constitutional Vitals: Temp Pulse Resp BP Pulse Ox 98.2 F 91 18 132/69 98 07/13/16 12:27 07/13/16 08:00 07/13/16 15:44 07/13/16 08:00 07/13/16 15:44 General appearance: Present: A&O X 3, morbidly obese Exam: General: Not in acute distress at the time of my evaluation Lungs: Clear to auscultation Cardiac: Regular rate and rhythm. No significant murmurs Abdomen: Soft, non tender. Bowel sounds present. Umbilical hernia present Neurological: Alert and oriented. No gross localizing deficits Psych: Not agrressive or agitated Extremities: Chronic leg edema Skin: No generalized rash Internal Medicine: Result - Labs CBC & Chem 7: 07/12/16 01:42 07/13/16 12:52 Labs: BMP 07/13/16 07/13/16 03:15 12:52 Sodium 140 142 Potassium 4.2 4.1 Chloride 86 L 88 L Carbon Dioxide 49 H* 45 H* BUN 30 H 30 H Creatinine 0.80 0.86 Glucose 137 H 250 H Calcium 8.9 8.9 Liver Function 07/13/16 Range/Units 03:15 Total Bilirubin 0.5 (0.2-1.2) mg/dL AST 14 (5-34) Units/L ALT 14 (0-55) Units/L Alkaline Phosphatase 81 (38-126) Units/L Albumin 2.8 L (3.5-5.0) g/dL - ABG Interpretation ABG results: ABG ABG pH 7.49 pH Units (7.32-7.45) H 07/13/16 04:20 ABG pCO2 79 mmHg (35-45) H* 07/13/16 04:20 ABG pO2 62 mmHg (85-104) L 07/13/16 04:20 ABG O2 Saturation 93 % (95-98) L 07/13/16 04:20 PT/INR, D-dimer PT 28.2 Seconds (9.4-12.1) H 07/13/16 03:15 D-Dimer 1222 ng/mLFEU (0-500) H 07/10/16 11:50 - Impressions Impressions Chest X-Ray 07/13/16 10:26 IMPRESSION: 1. Improved pulmonary edema. There are still probably small bilateral pleural effusions, left side greater than right, with associated volume loss in the lung bases. D/ / Edwin Byrd MD / Edwin Byrd MD Interpreting Provider: Edwin Byrd MD Consult Discharge Plan - Plan Referrals: Jay Cool MD [NPP Staff] - 07/21/16 10:00 am NO,PCP [Primary Care Provider] - Erik Zayas DO [Partnered Physician] - (sent web request on 07-11-16 @ [phone])
[2016-07-13] MEDS ORDERED: *HR* Warfarin 5 MG TABLET PO SCH (18:00)
[2016-07-13] MEDS ORDERED: Naloxone 0.4 MG/ML INJ IVP PRN (18:09)
[2016-07-13] MEDS ORDERED: Warfarin perPT PO PRN (18:09)
[2016-07-13] MEDS ORDERED: Ipratropium/Albuterol Neb 3 ML IH PRN (18:09)
[2016-07-13] MEDS ORDERED: *HR* LORazepam 1 MG TABLET PO PRN (18:09)
[2016-07-13] MEDS: Furosemide 240 MG in D5% in Water 96 ML IVC SCH (18:20)
[2016-07-13 19:35] LABS: Adenovirus Not Detected (Not Detect); Bordetella Pertussis Not Detected (Not Detect); Chlamydophila pneumoniae Not Detected (Not Detect); Coronavirus 229E Not Detected (Not Detect); Coronavirus HKU1 Not Detected (Not Detect); Coronavirus NL63 Not Detected (Not Detect); Coronavirus OC43 Not Detected (Not Detect); Human Metapneumovirus Not Detected (Not Detect); Human Rhinovirus/Enterovirus Not Detected (Not Detect); Influenza A Subtype 2009 H1 Not Detected (Not Detect); Influenza A Untypeable Not Detected (Not Detect); Influenza B Not Detected (Not Detect); Mycoplasma pneumoniae Not Detected (Not Detect); Parainfluenza Virus 1 Not Detected (Not Detect); Parainfluenza Virus 2 Not Detected (Not Detect); Parainfluenza Virus 3 Not Detected (Not Detect); Parainfluenza Virus 4 Not Detected (Not Detect); Respiratory Syncytial Virus Not Detected (Not Detect)
[2016-07-14 03:12] LABS: INR 2.5; Prothrombin Time 27.4 Seconds (9.4-12.1)
[2016-07-14 03:22] LABS: BUN/Creatinine Ratio 32 (6-26); Blood Urea Nitrogen 30 mg/dL (8-26); Chloride 91 mEq/L (98-109); Glucose 105 mg/dL (70-99); Magnesium 2.6 mg/dL (1.6-2.6); Osmolality,Calculated 309 (280-300); Sodium 146 mEq/L (136-145); eGFR For African Americans > 60 (> 60); eGFR For Non-African Americans > 60 (> 60)
[2016-07-14 03:24] LABS: Carbon Dioxide 47 mEq/L (19-29)
[2016-07-14] MEDS: Ipratropium/Albuterol Neb 3 ML IH SCH ×6 (03:57→23:29)
--- NOTE | 2016-07-14 06:54 | Pulmonology Progress Note ---
<BenNicolas soto - Last Filed: 07/14/16 08:10> Date of Encounter: 07/14/16 Time of Encounter: 06:54 Assessment and Plan (1) Acute on chronic respiratory failure with hypercapnia Current Visit: Yes Status: Acute Likely related to underlying COPD, GAVIN, obesity hypoventilation syndrome, decompensated heart failure with noncompliance. Continue with noninvasive positive pressure ventilation at night and with naps. Hypercapnic today however pH is normal, this is likely close to the patient's baseline. Goal oxygen saturation is 88-92% (2) Heart failure with preserved ejection fraction Current Visit: Yes Status: Acute Appears decompensated with acute fluid overload. Patient is -9 L total. Continue diuresis, can likely transition to pulse dose Lasix. (3) Atrial fibrillation Current Visit: No Status: Chronic Rate controlled. On warfarin for anticoagulation, management per primary team. Qualifiers: Atrial fibrillation type: chronic Qualified Code(s): I48.2 - Chronic atrial fibrillation (4) GAVIN (obstructive sleep apnea) Current Visit: No Status: Chronic BiPAP at night continuously, trach was offered to the patient as a long-term solution. (5) Obesity hypoventilation syndrome Current Visit: No Status: Chronic Continue BiPAP. (6) COPD (chronic obstructive pulmonary disease) Current Visit: No Status: Acute This does not appear to be in acute exacerbation. Continue with bronchodilators. No indication for steroids at this time. Qualifiers: COPD type: unspecified COPD Qualified Code(s): J44.9 - Chronic obstructive pulmonary disease, unspecified (7) Metabolic alkalosis Current Visit: Yes Status: Chronic Chronic due to respiratory hypercarbia. Recommended total 3 doses of Acetazolamide 250 mg by mouth. (8) DVT prophylaxis Current Visit: Yes Status: Acute Patient is fully anticoagulated with warfarin. No need for DVT prophylaxis at this time. Subjective Principal diagnosis: Acute on chronic resp failure Interval history: Patient seen and examined at bedside. He is resting comfortably at this time. He has no complaints. He states he is not a fan of the BiPAP but he is tolerating it. Objective PUL Vital signs: Last Vital Signs Temp 98.2 F 07/14/16 04:34 Pulse 69 07/14/16 04:00 Resp 15 07/14/16 03:58 BP 122/84 07/14/16 02:30 Pulse Ox 94 L 07/14/16 03:58 General appearance: no acute distress Effort: normal Auscultation: bilateral: diminished breath sounds Cardiovascular: regular rate and rhythm Gastrointestinal: normoactive bowel sounds, soft, non-tender, non-distended Extremities: no cyanosis, no clubbing, edema (1+) normal mental status, non-focal exam Results - Laboratory Findings CBC and BMP: 07/12/16 01:42 07/14/16 02:58 ABG ABG pH 7.49 pH Units (7.32-7.45) H 07/13/16 04:20 ABG pCO2 79 mmHg (35-45) H* 07/13/16 04:20 ABG pO2 62 mmHg (85-104) L 07/13/16 04:20 ABG O2 Saturation 93 % (95-98) L 07/13/16 04:20 PT/INR, D-dimer PT 27.4 Seconds (9.4-12.1) H 07/14/16 02:58 D-Dimer 1222 ng/mLFEU (0-500) H 07/10/16 11:50 Abnormal lab findings: Abnormal lab results WBC 11.5 K/mcL (4.3-11.1) H 07/12/16 01:42 Hgb 10.4 g/dL (12.9-16.9) L 07/12/16 01:42 MCH 24.5 pg (28.0-33.3) L 07/12/16 01:42 MCHC 27.4 g/dL (31.6-35.5) L 07/12/16 01:42 RDW 15.0 % (11.5-14.5) H 07/12/16 01:42 Neutrophils # 9.7 K/mcL (1.6-8.9) H 07/11/16 03:21 Lymphocytes # 0.3 K/mcL (0.6-4.6) L 07/11/16 03:21 Polychromasia 2+ (Not Present) A 07/11/16 03:21 Hypochromasia Present (Not Present) A 07/11/16 03:21 Anisocytosis 2+ (Not Present) A 07/10/16 11:50 Microcytosis Present (Not Present) A 07/10/16 11:50 PT 27.4 Seconds (9.4-12.1) H 07/14/16 02:58 D-Dimer 1222 ng/mLFEU (0-500) H 07/10/16 11:50 ABG pH 7.49 pH Units (7.32-7.45) H 07/13/16 04:20 ABG pCO2 79 mmHg (35-45) H* 07/13/16 04:20 ABG pO2 62 mmHg (85-104) L 07/13/16 04:20 ABG HCO3 60.2 mEQ/L (21-27) H 07/13/16 04:20 ABG Total CO2 62.6 mEq/L (20-26) H 07/13/16 04:20 ABG O2 Saturation 93 % (95-98) L 07/13/16 04:20 ABG Base Excess 30.8 mEq/L (-2.0 to 3.0) H 07/13/16 04:20 Sodium 146 mEq/L (136-145) H 07/14/16 02:58 Chloride 91 mEq/L (98-109) L 07/14/16 02:58 Carbon Dioxide 47 mEq/L (19-29) H* 07/14/16 02:58 BUN 30 mg/dL (8-26) H 07/14/16 02:58 BUN/Creatinine Ratio 32 (6-26) H 07/14/16 02:58 Glucose 105 mg/dL (70-99) H 07/14/16 02:58 POC Glucose 191 (58-89) H 07/12/16 22:13 Calculated Osmolality 309 (280-300) H 07/14/16 02:58 C-Reactive Protein 7 mg/L (Less than 5) H 07/13/16 03:15 B-Natriuretic Peptide 217 pg/mL (0-100) H 07/10/16 11:50 Albumin 2.8 g/dL (3.5-5.0) L 07/13/16 03:15 Albumin/Globulin Ratio 0.8 (1.1-2.2) L 07/13/16 03:15 - Clinical Findings Intake & Output: Intake & Output 07/13/16 07/13/16 07/14/16 15:59 23:59 07:59 Intake Total 240 / 240 240 / 240 Output Total 1900 / 1900 2700 / 2700 600 / 600 Balance -1660 / -1660 -2460 / -2460 -600 / -600 Weight 206.4 kg Consult Discharge Plan - Plan Referrals: Jay Cool MD [NPP Staff] - 07/21/16 10:00 am NO,PCP [Primary Care Provider] - Erik Zayas DO [Partnered Physician] - (sent web request on 07-11-16 @ [phone]) <Jas Frey W - Last Filed: 07/14/16 12:13> Date of Encounter: 07/14/16 Assessment and Plan (1) Acute on chronic respiratory failure with hypercapnia Current Visit: Yes Status: Acute (2) Heart failure with preserved ejection fraction Current Visit: Yes Status: Acute (3) Atrial fibrillation Current Visit: No Status: Chronic Qualifiers: Atrial fibrillation type: chronic Qualified Code(s): I48.2 - Chronic atrial fibrillation (4) GAVIN (obstructive sleep apnea) Current Visit: No Status: Chronic (5) Obesity hypoventilation syndrome Current Visit: No Status: Chronic (6) COPD (chronic obstructive pulmonary disease) Current Visit: No Status: Chronic Qualifiers: COPD type: chronic bronchitis Chronic bronchitis type: unspecified Qualified Code(s): J42 - Unspecified chronic bronchitis (7) Metabolic alkalosis Current Visit: Yes Status: Chronic Objective PUL Vital signs: Last Vital Signs Temp 99.3 F 07/14/16 11:25 Pulse 76 07/14/16 11:07 Resp 15 07/14/16 11:28 BP 109/86 07/14/16 11:28 Pulse Ox 95 07/14/16 11:28 Results - Laboratory Findings CBC and BMP: 07/12/16 01:42 07/14/16 02:58 ABG ABG pH 7.42 pH Units (7.32-7.45) 07/14/16 07:45 ABG pCO2 87 mmHg (35-45) H* 07/14/16 07:45 ABG pO2 73 mmHg (85-104) L 07/14/16 07:45 ABG O2 Saturation 95 % (95-98) 07/14/16 07:45 PT/INR, D-dimer PT 27.4 Seconds (9.4-12.1) H 07/14/16 02:58 D-Dimer 1222 ng/mLFEU (0-500) H 07/10/16 11:50 Abnormal lab findings: Abnormal lab results WBC 11.5 K/mcL (4.3-11.1) H 07/12/16 01:42 Hgb 10.4 g/dL (12.9-16.9) L 07/12/16 01:42 MCH 24.5 pg (28.0-33.3) L 07/12/16 01:42 MCHC 27.4 g/dL (31.6-35.5) L 07/12/16 01:42 RDW 15.0 % (11.5-14.5) H 07/12/16 01:42 Neutrophils # 9.7 K/mcL (1.6-8.9) H 07/11/16 03:21 Lymphocytes # 0.3 K/mcL (0.6-4.6) L 07/11/16 03:21 Polychromasia 2+ (Not Present) A 07/11/16 03:21 Hypochromasia Present (Not Present) A 07/11/16 03:21 Anisocytosis 2+ (Not Present) A 07/10/16 11:50 Microcytosis Present (Not Present) A 07/10/16 11:50 PT 27.4 Seconds (9.4-12.1) H 07/14/16 02:58 D-Dimer 1222 ng/mLFEU (0-500) H 07/10/16 11:50 ABG pCO2 87 mmHg (35-45) H* 07/14/16 07:45 ABG pO2 73 mmHg (85-104) L 07/14/16 07:45 ABG HCO3 56.4 mEQ/L (21-27) H 07/14/16 07:45 ABG Total CO2 59.1 mEq/L (20-26) H 07/14/16 07:45 ABG Base Excess 26.1 mEq/L (-2.0 to 3.0) H 07/14/16 07:45 Sodium 146 mEq/L (136-145) H 07/14/16 02:58 Chloride 91 mEq/L (98-109) L 07/14/16 02:58 Carbon Dioxide 47 mEq/L (19-29) H* 07/14/16 02:58 BUN 30 mg/dL (8-26) H 07/14/16 02:58 BUN/Creatinine Ratio 32 (6-26) H 07/14/16 02:58 Glucose 105 mg/dL (70-99) H 07/14/16 02:58 POC Glucose 191 (58-89) H 07/12/16 22:13 Calculated Osmolality 309 (280-300) H 07/14/16 02:58 C-Reactive Protein 7 mg/L (Less than 5) H 07/13/16 03:15 B-Natriuretic Peptide 217 pg/mL (0-100) H 07/10/16 11:50 Albumin 2.8 g/dL (3.5-5.0) L 07/13/16 03:15 Albumin/Globulin Ratio 0.8 (1.1-2.2) L 07/13/16 03:15 - Clinical Findings Intake & Output: Intake & Output 07/13/16 07/14/16 07/14/16 23:59 07:59 15:59 Intake Total 240 / 240 Output Total 2700 / 2700 600 / 600 700 / 700 Balance -2460 / -2460 -600 / -600 -700 / -700 Weight 206.4 kg - Attending Attestation I examined this patient and my medical decision-making was reviewed with the AUTOMOTIVE SALES ASSOCIATE/PA/Advanced Practice Nurse/Resident Physician. I agree with the documented findings, disposition and treatment plan as described except to the extent set forth below. Impression: 1. Acute on Chronic Hypoxic Hypercapnic Respiratory Failure 2. GAVIN/OHS 3. adHFpEF 4. COPD 5. Morbid Obesity 6. Chronic Alkalosis Recs: Cont NIPPV with Naps and while sleeping. Adjusted now 24/6 (ABG in AM) bleed Fio2 to keep Sat around 90% Cont diuresis (5L off yesterday) stopp IV lasix bolus BID lasix for goal 1-2L as tolerated by kidney function Diamox to stop today agressive K+/Cl- replaced strict i/o's BID REnal Panel Cont Bronchodilators (no Abx or steroids) we will follow
[2016-07-14] MEDS: Budesonide/Formoterol 160/4.5 MDI IH SCH ×2 (07:49→20:10)
[2016-07-14 07:52] LABS: ABG Base Excess 26.1 mEq/L (-2.0 to 3.0); ABG HCO3 56.4 mEQ/L (21-27); ABG Oxygen Saturation 95 % (95-98); ABG PH 7.42 pH Units (7.32-7.45); ABG PO2 73 mmHg (85-104); ABG TCO2 59.1 mEq/L (20-26)
[2016-07-14 07:53] LABS: Blood Gas FiO2 35 %
[2016-07-14 07:55] LABS: ABG PCO2 87 mmHg (35-45)
[2016-07-14] MEDS: *HR* Amiodarone 200 MG TABLET PO SCH (08:18)
[2016-07-14] MEDS: Lactobacillus 1 EACH CAP.SPRINK PO SCH ×2 (08:19→19:49)
[2016-07-14] MEDS: acetaZOLAMIDE 250 MG TABLET PO SCH ×2 (08:19→16:34)
[2016-07-14] MEDS: Fluticasone Propionate Nasal 50 MCG/SPRAY BOTTLE NS SCH (08:28)
[2016-07-14] MEDS: *HR* Warfarin 5 MG TABLET PO SCH (16:34)
[2016-07-14] MEDS: Furosemide 240 MG in D5% in Water 96 ML IVC SCH (18:20)
--- NOTE | 2016-07-14 19:23 | Internal Med Progress Note ---
Date of Encounter: 07/14/16 Time of Encounter: 09:00 - Assessment and plan (1) Acute on chronic respiratory failure with hypercapnia Current Visit: Yes Status: Acute Assessment and plan: Possibly due to combination of acute exacerbation of diastolic CHF, COPD, GAVIN and obesity hypoventilation syndrome. CTA chest is not conclusive for pneumonia. Continue BiPAP therapy, intravenous Lasix, and bronchodilators. Pulmonary physician is following the pt (2) Acute exacerbation of chronic obstructive airways disease Current Visit: Yes Status: Resolved Assessment and plan: Continue bronchodilators and oxygen therapy (3) CHF exacerbation Current Visit: Yes Status: Acute Assessment and plan: Continue with intravenous Lasix infusion, that is started in the ICU. Good urine output. Pt weights are not matching the I/Os. Monitor intake and output. Qualifiers: Congestive heart failure type: diastolic Qualified Code(s): I50.33 - Acute on chronic diastolic (congestive) heart failure (4) DVT prophylaxis Current Visit: Yes Status: Acute Assessment and plan: Patient is on warfarin with therapeutic INR. No other anticoagulation required at this time. (5) Obesity hypoventilation syndrome Current Visit: No Status: Chronic Assessment and plan: Patient had poor compliance with CPAP therapy at home. Pulmonary physician following the patient. Continue BiPAP therapy (6) Atrial fibrillation Current Visit: No Status: Chronic Assessment and plan: Rate controlled. Continue amiodarone and Coumadin - INR is therapeutic Qualifiers: Atrial fibrillation type: chronic Qualified Code(s): I48.2 - Chronic atrial fibrillation - Subjective Interval history: Pt is seen and examined at the bedside and chart reviewed. Pt reports feeling better today. Shortness of breath is improving. Denies significant pain, nausea , vomiting, fever, chills. - Constitutional Vitals: Temp Pulse Resp BP Pulse Ox 97.7 F 76 20 120/73 98 07/14/16 15:48 07/14/16 15:00 07/14/16 15:31 07/14/16 15:00 07/14/16 15:31 General appearance: Present: A&O X 3, morbidly obese Exam: General: Not in acute distress at the time of my evaluation Lungs: Clear to auscultation Cardiac: Regular rate and rhythm. No significant murmurs Abdomen: Obese, non tender. Bowel sounds present. Umbilical hernia present Neurological: Alert and oriented. No gross localizing deficits Psych: Not agrressive or agitated Extremities: Bilateral chronic leg edema Skin: No generalized rash Internal Medicine: Result - Labs CBC & Chem 7: 07/12/16 01:42 07/14/16 02:58 Labs: BMP 07/14/16 02:58 Sodium 146 H Potassium 4.0 Chloride 91 L Carbon Dioxide 47 H* BUN 30 H Creatinine 0.95 Glucose 105 H Calcium 9.0 Microbiology 07/10/16 16:42 Blood Culture - Preliminary Peripheral Venipuncture No growth. 07/10/16 16:42 Blood Culture - Preliminary Peripheral Venipuncture No growth. 07/10/16 13:05 Urine Culture - Final Urine,Catheterized No growth. ITS Impressions Chest X-Ray 07/10/16 11:35 IMPRESSION: 1. Unchanged congestive heart failure. D/ / Donald Kahn MD / Donald Kahn MD Interpreting Provider: Donald Kahn MD Chest CTA 07/10/16 13:21 IMPRESSION: No CT evidence of pulmonary embolism as above. Small to moderate bilateral pleural effusions with associated bilateral lower lobe dependent consolidation, likely passive atelectasis. Pneumonia cannot be completely excluded. Diffuse bilateral pulmonary parenchymal ground-glass opacity as well as some interlobular septal thickening most compatible with pulmonary edema. D/ / Sissy Clay Cha, MD / Sissy Clay Cha, MD Interpreting Provider: Sissy Clay Cha, MD Chest X-Ray 07/13/16 10:26 IMPRESSION: 1. Improved pulmonary edema. There are still probably small bilateral pleural effusions, left side greater than right, with associated volume loss in the lung bases. D/ / Edwin Byrd MD / Edwin Byrd MD Interpreting Provider: Edwin Byrd MD - ABG Interpretation ABG results: ABG ABG pH 7.42 pH Units (7.32-7.45) 07/14/16 07:45 ABG pCO2 87 mmHg (35-45) H* 07/14/16 07:45 ABG pO2 73 mmHg (85-104) L 07/14/16 07:45 ABG O2 Saturation 95 % (95-98) 07/14/16 07:45 PT/INR, D-dimer PT 27.4 Seconds (9.4-12.1) H 07/14/16 02:58 D-Dimer 1222 ng/mLFEU (0-500) H 07/10/16 11:50 Consult Discharge Plan - Plan Referrals: Jay Cool MD [NPP Staff] - 07/21/16 10:00 am NO,PCP [Primary Care Provider] - Erik Zayas DO [Partnered Physician] - (sent web request on 07-11-16 @ [phone])
[2016-07-15 03:23] LABS: INR 2.2; Prothrombin Time 24.8 Seconds (9.4-12.1)
[2016-07-15] MEDS: Ipratropium/Albuterol Neb 3 ML IH SCH ×6 (03:50→23:43)
[2016-07-15] MEDS: Budesonide/Formoterol 160/4.5 MDI IH SCH ×2 (07:38→20:00)
[2016-07-15] MEDS: Lactobacillus 1 EACH CAP.SPRINK PO SCH ×2 (08:04→19:58)
[2016-07-15] MEDS: *HR* Amiodarone 200 MG TABLET PO SCH (08:04)
[2016-07-15] MEDS: Fluticasone Propionate Nasal 50 MCG/SPRAY BOTTLE NS SCH (08:05)
[2016-07-15 08:35] LABS: ABG Base Excess 15.8 mEq/L (-2.0 to 3.0); ABG HCO3 45.1 mEQ/L (21-27); ABG Oxygen Saturation 95 % (95-98); ABG PH 7.37 pH Units (7.32-7.45); ABG PO2 78 mmHg (85-104); ABG TCO2 47.5 mEq/L (20-26)
[2016-07-15 08:36] LABS: Blood Gas FiO2 40 %
[2016-07-15 08:37] LABS: ABG PCO2 78 mmHg (35-45)
[2016-07-15 09:19] LABS: Mean Corpuscular Volume 86.7 fL (83.0-100.0); Mean Platelet Volume 9.2 fL (9.4-12.4)
[2016-07-15 09:20] LABS: Hematocrit 42.3 % (37.5-50.1); Hemoglobin 12.2 g/dL (12.9-16.9); Mean Corpuscular HGB Conc 28.8 g/dL (31.6-35.5); Platelet Count 208 K/mcL (140-400); Red Blood Count 4.88 M/mcL (4.19-5.50); Red Cell Distribution Width 15.4 % (11.5-14.5)
--- NOTE | 2016-07-15 09:32 | Pulmonology Progress Note ---
<BenNicolas soto - Last Filed: 07/15/16 09:48> Date of Encounter: 07/15/16 Time of Encounter: 09:28 Assessment and Plan (1) Acute on chronic respiratory failure with hypercapnia Current Visit: Yes Status: Acute Likely related to underlying COPD, GAVIN, obesity hypoventilation syndrome, decompensated heart failure with noncompliance. Continue with noninvasive positive pressure ventilation at night and with naps. Hypercapnic today however pH is normal, this is likely close to the patient's baseline. Goal oxygen saturation is 88-92% (2) Heart failure with preserved ejection fraction Current Visit: Yes Status: Acute Appears decompensated with acute fluid overload. Patient is -11 L total. Diuresis prn (3) Atrial fibrillation Current Visit: No Status: Chronic Rhythm controlled. Continue amiodarone. On warfarin for anticoagulation, management per primary team. Qualifiers: Atrial fibrillation type: chronic Qualified Code(s): I48.2 - Chronic atrial fibrillation (4) GAVIN (obstructive sleep apnea) Current Visit: No Status: Chronic BiPAP at night continuously, trach was offered to the patient as a long-term solution. (5) Obesity hypoventilation syndrome Current Visit: No Status: Chronic Continue BiPAP. (6) COPD (chronic obstructive pulmonary disease) Current Visit: No Status: Acute This does not appear to be in acute exacerbation. Continue with bronchodilators. No indication for steroids at this time. Qualifiers: COPD type: unspecified COPD Qualified Code(s): J44.9 - Chronic obstructive pulmonary disease, unspecified (7) Metabolic alkalosis Current Visit: Yes Status: Chronic Chronic due to respiratory hypercarbia. Patient received Acetazolamide. We will continue to monitor. (8) DVT prophylaxis Current Visit: Yes Status: Acute Patient is fully anticoagulated with warfarin. No need for DVT prophylaxis at this time. Subjective Principal diagnosis: Acute on chronic resp failure Interval history: Patient seen and examined at bedside. He is resting comfortably at this time. He has no complaints. He states he is tolerating the BiPAP well, does irritate his face but he continues to wear it. Objective PUL Vital signs: Last Vital Signs Temp 97.9 F 07/15/16 08:15 Pulse 73 07/15/16 08:00 Resp 20 07/15/16 08:00 BP 120/80 07/15/16 08:00 Pulse Ox 95 07/15/16 08:00 General appearance: no acute distress Effort: normal Auscultation: bilateral: diminished breath sounds Cardiovascular: regular rate and rhythm Gastrointestinal: normoactive bowel sounds, soft, non-tender, non-distended Extremities: no cyanosis, no clubbing, edema (trace) normal mental status, non-focal exam Results - Laboratory Findings CBC and BMP: 07/15/16 09:09 07/15/16 09:09 ABG ABG pH 7.37 pH Units (7.32-7.45) 07/15/16 08:13 ABG pCO2 78 mmHg (35-45) H* 07/15/16 08:13 ABG pO2 78 mmHg (85-104) L 07/15/16 08:13 ABG O2 Saturation 95 % (95-98) 07/15/16 08:13 PT/INR, D-dimer PT 24.8 Seconds (9.4-12.1) H 07/15/16 03:11 D-Dimer 1222 ng/mLFEU (0-500) H 07/10/16 11:50 Abnormal lab findings: Abnormal lab results Hgb 12.2 g/dL (12.9-16.9) L D 07/15/16 09:09 MCH 25.0 pg (28.0-33.3) L 07/15/16 09:09 MCHC 28.8 g/dL (31.6-35.5) L 07/15/16 09:09 RDW 15.4 % (11.5-14.5) H 07/15/16 09:09 MPV 9.2 fL (9.4-12.4) L 07/15/16 09:09 Neutrophils # 9.7 K/mcL (1.6-8.9) H 07/11/16 03:21 Lymphocytes # 0.3 K/mcL (0.6-4.6) L 07/11/16 03:21 Polychromasia 2+ (Not Present) A 07/11/16 03:21 Hypochromasia Present (Not Present) A 07/11/16 03:21 Anisocytosis 2+ (Not Present) A 07/10/16 11:50 Microcytosis Present (Not Present) A 07/10/16 11:50 PT 24.8 Seconds (9.4-12.1) H 07/15/16 03:11 D-Dimer 1222 ng/mLFEU (0-500) H 07/10/16 11:50 ABG pCO2 78 mmHg (35-45) H* 07/15/16 08:13 ABG pO2 78 mmHg (85-104) L 07/15/16 08:13 ABG HCO3 45.1 mEQ/L (21-27) H 07/15/16 08:13 ABG Total CO2 47.5 mEq/L (20-26) H 07/15/16 08:13 ABG Base Excess 15.8 mEq/L (-2.0 to 3.0) H 07/15/16 08:13 Sodium 146 mEq/L (136-145) H 07/14/16 02:58 Chloride 91 mEq/L (98-109) L 07/14/16 02:58 Carbon Dioxide 47 mEq/L (19-29) H* 07/14/16 02:58 BUN 30 mg/dL (8-26) H 07/14/16 02:58 BUN/Creatinine Ratio 32 (6-26) H 07/14/16 02:58 Glucose 105 mg/dL (70-99) H 07/14/16 02:58 POC Glucose 191 (58-89) H 07/12/16 22:13 Calculated Osmolality 309 (280-300) H 07/14/16 02:58 C-Reactive Protein 7 mg/L (Less than 5) H 07/13/16 03:15 B-Natriuretic Peptide 217 pg/mL (0-100) H 07/10/16 11:50 Albumin 2.8 g/dL (3.5-5.0) L 07/13/16 03:15 Albumin/Globulin Ratio 0.8 (1.1-2.2) L 07/13/16 03:15 - Clinical Findings Intake & Output: Intake & Output 07/14/16 07/15/16 07/15/16 23:59 07:59 15:59 Intake Total 830 / 830 0 / 0 Output Total 1700 / 1700 550 / 550 250 / 250 Balance -870 / -870 -550 / -550 -250 / -250 Consult Discharge Plan - Plan Referrals: Jay Cool MD [NPP Staff] - 07/21/16 10:00 am NO,PCP [Primary Care Provider] - Erik Zayas DO [Partnered Physician] - (sent web request on 07-11-16 @ [phone]) <Jas Frey W - Last Filed: 07/15/16 11:19> Date of Encounter: 07/15/16 Assessment and Plan (1) Acute on chronic respiratory failure with hypercapnia Current Visit: Yes Status: Acute (2) Heart failure with preserved ejection fraction Current Visit: Yes Status: Acute (3) Atrial fibrillation Current Visit: No Status: Chronic Qualifiers: Atrial fibrillation type: chronic Qualified Code(s): I48.2 - Chronic atrial fibrillation (4) GAVIN (obstructive sleep apnea) Current Visit: No Status: Chronic (5) Obesity hypoventilation syndrome Current Visit: No Status: Chronic (6) COPD (chronic obstructive pulmonary disease) Current Visit: No Status: Chronic Qualifiers: COPD type: chronic bronchitis Chronic bronchitis type: unspecified Qualified Code(s): J42 - Unspecified chronic bronchitis (7) Metabolic alkalosis Current Visit: Yes Status: Chronic Objective PUL Vital signs: Last Vital Signs Temp 97.9 F 07/15/16 08:15 Pulse 73 07/15/16 11:02 Resp 18 07/15/16 10:00 BP 135/77 07/15/16 10:00 Pulse Ox 96 07/15/16 10:00 Results - Laboratory Findings CBC and BMP: 07/15/16 09:09 07/15/16 09:09 ABG ABG pH 7.37 pH Units (7.32-7.45) 07/15/16 08:13 ABG pCO2 78 mmHg (35-45) H* 07/15/16 08:13 ABG pO2 78 mmHg (85-104) L 07/15/16 08:13 ABG O2 Saturation 95 % (95-98) 07/15/16 08:13 PT/INR, D-dimer PT 24.8 Seconds (9.4-12.1) H 07/15/16 03:11 D-Dimer 1222 ng/mLFEU (0-500) H 07/10/16 11:50 Abnormal lab findings: Abnormal lab results Hgb 12.2 g/dL (12.9-16.9) L D 07/15/16 09:09 MCH 25.0 pg (28.0-33.3) L 07/15/16 09:09 MCHC 28.8 g/dL (31.6-35.5) L 07/15/16 09:09 RDW 15.4 % (11.5-14.5) H 07/15/16 09:09 MPV 9.2 fL (9.4-12.4) L 07/15/16 09:09 Neutrophils # 9.7 K/mcL (1.6-8.9) H 07/11/16 03:21 Lymphocytes # 0.3 K/mcL (0.6-4.6) L 07/11/16 03:21 Polychromasia 2+ (Not Present) A 07/11/16 03:21 Hypochromasia Present (Not Present) A 07/11/16 03:21 Anisocytosis 2+ (Not Present) A 07/10/16 11:50 Microcytosis Present (Not Present) A 07/10/16 11:50 PT 24.8 Seconds (9.4-12.1) H 07/15/16 03:11 D-Dimer 1222 ng/mLFEU (0-500) H 07/10/16 11:50 ABG pCO2 78 mmHg (35-45) H* 07/15/16 08:13 ABG pO2 78 mmHg (85-104) L 07/15/16 08:13 ABG HCO3 45.1 mEQ/L (21-27) H 07/15/16 08:13 ABG Total CO2 47.5 mEq/L (20-26) H 07/15/16 08:13 ABG Base Excess 15.8 mEq/L (-2.0 to 3.0) H 07/15/16 08:13 Chloride 97 mEq/L (98-109) L 07/15/16 09:09 Carbon Dioxide 33 mEq/L (19-29) H 07/15/16 09:09 BUN 27 mg/dL (8-26) H 07/15/16 09:09 BUN/Creatinine Ratio 33 (6-26) H 07/15/16 09:09 Glucose 197 mg/dL (70-99) H 07/15/16 09:09 POC Glucose 191 (58-89) H 07/12/16 22:13 C-Reactive Protein 7 mg/L (Less than 5) H 07/13/16 03:15 B-Natriuretic Peptide 217 pg/mL (0-100) H 07/10/16 11:50 Albumin 2.8 g/dL (3.5-5.0) L 07/13/16 03:15 Albumin/Globulin Ratio 0.8 (1.1-2.2) L 07/13/16 03:15 - Clinical Findings Intake & Output: Intake & Output 07/14/16 07/15/16 07/15/16 23:59 07:59 15:59 Intake Total 830 / 830 0 / 0 250 / 250 Output Total 1700 / 1700 550 / 550 600 / 600 Balance -870 / -870 -550 / -550 -350 / -350 - Attending Attestation I examined this patient and my medical decision-making was reviewed with the SENIOR ANALYST DEVELOPER/PA/Advanced Practice Nurse/Resident Physician. I agree with the documented findings, disposition and treatment plan as described except to the extent set forth below. Impression: 1. Acute on Chronic Hypoxic Hypercapnic Respiratory Failure 2. GAVIN/OHS 3. adHFpEF 4. COPD 5. Morbid Obesity 6. Chronic Alkalosis Recs: Cont NIPPV with Naps and while sleeping. Adjusted now 24/6 (ABG acceptable chronic hypercapnia) bleed Fio2 to keep Sat around 90% Improving Alkalosis (metabolic) Cont diuresis goal 1-2L as tolerated by kidney function Diamox to stop today Agressive K+/Cl- replaced strict i/o's BID Renal Panel Cont Bronchodilators (no Abx or steroids) we will follow
[2016-07-15 09:34] LABS: BUN/Creatinine Ratio 33 (6-26); Blood Urea Nitrogen 27 mg/dL (8-26); Calcium 8.8 mg/dL (8.6-10.8); Carbon Dioxide 33 mEq/L (19-29); Chloride 97 mEq/L (98-109); Glucose 197 mg/dL (70-99); Osmolality,Calculated 299 (280-300); Potassium 3.8 mEq/L (3.5-4.5); Sodium 139 mEq/L (136-145); eGFR For African Americans > 60 (> 60); eGFR For Non-African Americans > 60 (> 60)
[2016-07-15] MEDS ORDERED: Furosemide 40 MG TABLET PO PRN (09:44)
[2016-07-15] MEDS ORDERED: Furosemide 40 MG TABLET PO SCH (17:00)
[2016-07-15] MEDS: *HR* Warfarin 5 MG TABLET PO SCH (18:25)
[2016-07-15] MEDS: *HR* OxyCODONE Immed Rel 5 MG TABLET PO PRN (19:57)
--- NOTE | 2016-07-15 20:38 | Internal Med Progress Note ---
Date of Encounter: 07/15/16 Time of Encounter: 11:55 - Assessment and plan (1) Acute on chronic respiratory failure with hypercapnia Current Visit: Yes Status: Acute Assessment and plan: Possibly due to combination of acute exacerbation of diastolic CHF, COPD, GAVIN and obesity hypoventilation syndrome. CTA chest is not conclusive for pneumonia. Continue BiPAP therapy, intravenous Lasix, and bronchodilators. Pulmonary physician is following the pt (2) Acute exacerbation of chronic obstructive airways disease Current Visit: Yes Status: Resolved Assessment and plan: Continue bronchodilators and oxygen therapy (3) CHF exacerbation Current Visit: Yes Status: Acute Assessment and plan: LVEF - 55%. Was treated with intravenous Lasix infusion in the ICU - now switched to oral lasix. Good urine output. Pt weights are not matching the I/ Os. Monitor intake and output. Qualifiers: Congestive heart failure type: diastolic Qualified Code(s): I50.33 - Acute on chronic diastolic (congestive) heart failure (4) DVT prophylaxis Current Visit: Yes Status: Acute Assessment and plan: Patient is on warfarin with therapeutic INR. No other anticoagulation required at this time. (5) Obesity hypoventilation syndrome Current Visit: No Status: Chronic Assessment and plan: Patient had poor compliance with CPAP therapy at home. Pulmonary physician following the patient. Continue BiPAP therapy (6) Atrial fibrillation Current Visit: No Status: Chronic Assessment and plan: Rate controlled. Continue amiodarone and Coumadin - INR is therapeutic Qualifiers: Atrial fibrillation type: chronic Qualified Code(s): I48.2 - Chronic atrial fibrillation - Subjective Interval history: Pt is seen and examined at the bedside and chart reviewed. Pt reports feeling better today. Shortness of breath is improving. Denies significant pain, cough, nausea, vomiting, fever, chills. - Constitutional Vitals: Temp Pulse Resp BP Pulse Ox 98.2 F 70 14 116/61 97 07/15/16 20:04 07/15/16 20:04 07/15/16 20:04 07/15/16 20:04 07/15/16 20:04 Exam: General: Not in acute distress at the time of my evaluation Lungs: Clear to auscultation Cardiac: Regular rate and rhythm. No significant murmurs Abdomen: Obese, non tender. Bowel sounds present Neurological: Alert and oriented. No gross localizing deficits Psych: Not agrressive or agitated Extremities: Bilateral lower extremity edema Skin: No generalized rash Internal Medicine: Result - Labs CBC & Chem 7: 07/15/16 09:09 07/15/16 09:09 Labs: Short CBC 07/15/16 Range/Units 09:09 WBC 9.8 (4.3-11.1) K/mcL Hgb 12.2 L D (12.9-16.9) g/dL Hct 42.3 (37.5-50.1) % Plt Count 208 (140-400) K/mcL BMP 07/15/16 09:09 Sodium 139 Potassium 3.8 Chloride 97 L Carbon Dioxide 33 H BUN 27 H Creatinine 0.82 Glucose 197 H Calcium 8.8 - ABG Interpretation ABG results: ABG ABG pH 7.37 pH Units (7.32-7.45) 07/15/16 08:13 ABG pCO2 78 mmHg (35-45) H* 07/15/16 08:13 ABG pO2 78 mmHg (85-104) L 07/15/16 08:13 ABG O2 Saturation 95 % (95-98) 07/15/16 08:13 PT/INR, D-dimer PT 24.8 Seconds (9.4-12.1) H 07/15/16 03:11 D-Dimer 1222 ng/mLFEU (0-500) H 07/10/16 11:50 Consult Discharge Plan - Plan Referrals: Jay Cool MD [NPP Staff] - 07/21/16 10:00 am NO,PCP [Primary Care Provider] - Erik Zayas DO [Partnered Physician] - (sent web request on 07-11-16 @ [phone])
[2016-07-16] MEDS: *HR* OxyCODONE Immed Rel 5 MG TABLET PO PRN (00:06)
[2016-07-16 04:14] LABS: INR 2.2; Prothrombin Time 24.6 Seconds (9.4-12.1)
[2016-07-16] MEDS: Ipratropium/Albuterol Neb 3 ML IH SCH ×4 (04:30→15:58)
--- NOTE | 2016-07-16 06:33 | Pulmonology Progress Note ---
Date of Encounter: 07/16/16 Time of Encounter: 06:33 Assessment and Plan (1) Acute on chronic respiratory failure with hypercapnia Current Visit: Yes Status: Acute Impression: 1. Acute on Chronic Hypoxic Hypercapnic Respiratory Failure 2. GAVIN/OHS 3. adHFpEF 4. COPD 5. Morbid Obesity 6. Chronic Alkalosis 7. Chronic Afib Recs: Cont NIPPV with Naps and while sleeping. Adjusted now 24/6 (ABG acceptable chronic hypercapnia) bleed Fio2 to keep Sat around 90% reinforced need for absolute compliance or if unwilling consideration of tracheostomy placement Improving Alkalosis (metabolic) Cont diuresis goal 1-2L as tolerated by kidney function labs pending today getting close to switching to maint PO diuretic regimen in my estimation strict i/o's BID Renal Panel Replace lytes per protocol Cont Bronchodilators (no Abx or steroids) Cont amiodarone and BB along with LTA per primary service. (2) Heart failure with preserved ejection fraction Current Visit: Yes Status: Acute (3) Atrial fibrillation Current Visit: No Status: Chronic Qualifiers: Atrial fibrillation type: chronic Qualified Code(s): I48.2 - Chronic atrial fibrillation (4) GAIVN (obstructive sleep apnea) Current Visit: No Status: Chronic (5) Obesity hypoventilation syndrome Current Visit: No Status: Chronic (6) COPD (chronic obstructive pulmonary disease) Current Visit: No Status: Chronic Qualifiers: COPD type: chronic bronchitis Chronic bronchitis type: unspecified Qualified Code(s): J42 - Unspecified chronic bronchitis (7) Metabolic alkalosis Current Visit: Yes Status: Chronic Subjective Principal diagnosis: Acute on chronic resp failure Interval history: Transferred out of step down overnight Has had generally poor compliance with NIPPV despite repeated attempts to reinforce need. Continues to diurese. Says breathing generally better. Objective PUL Vital signs: Last Vital Signs Temp 98.3 F 07/16/16 03:58 Pulse 74 07/16/16 04:10 Resp 17 07/16/16 04:30 BP 103/75 07/16/16 03:58 Pulse Ox 92 L 07/16/16 04:30 General appearance: no acute distress ENT: oropharynx moist Effort: normal Auscultation: bilateral: diminished breath sounds, rales Cardiovascular: regular rate and rhythm Gastrointestinal: normoactive bowel sounds Extremities: edema normal mental status, non-focal exam mood appropriate Results - Laboratory Findings CBC and BMP: 07/15/16 09:09 07/15/16 09:09 ABG ABG pH 7.37 pH Units (7.32-7.45) 07/15/16 08:13 ABG pCO2 78 mmHg (35-45) H* 07/15/16 08:13 ABG pO2 78 mmHg (85-104) L 07/15/16 08:13 ABG O2 Saturation 95 % (95-98) 07/15/16 08:13 PT/INR, D-dimer PT 24.6 Seconds (9.4-12.1) H 07/16/16 03:40 D-Dimer 1222 ng/mLFEU (0-500) H 07/10/16 11:50 Abnormal lab findings: Abnormal lab results Hgb 12.2 g/dL (12.9-16.9) L D 07/15/16 09:09 MCH 25.0 pg (28.0-33.3) L 07/15/16 09:09 MCHC 28.8 g/dL (31.6-35.5) L 07/15/16 09:09 RDW 15.4 % (11.5-14.5) H 07/15/16 09:09 MPV 9.2 fL (9.4-12.4) L 07/15/16 09:09 Neutrophils # 9.7 K/mcL (1.6-8.9) H 07/11/16 03:21 Lymphocytes # 0.3 K/mcL (0.6-4.6) L 07/11/16 03:21 Polychromasia 2+ (Not Present) A 07/11/16 03:21 Hypochromasia Present (Not Present) A 07/11/16 03:21 Anisocytosis 2+ (Not Present) A 07/10/16 11:50 Microcytosis Present (Not Present) A 07/10/16 11:50 PT 24.6 Seconds (9.4-12.1) H 07/16/16 03:40 D-Dimer 1222 ng/mLFEU (0-500) H 07/10/16 11:50 ABG pCO2 78 mmHg (35-45) H* 07/15/16 08:13 ABG pO2 78 mmHg (85-104) L 07/15/16 08:13 ABG HCO3 45.1 mEQ/L (21-27) H 07/15/16 08:13 ABG Total CO2 47.5 mEq/L (20-26) H 07/15/16 08:13 ABG Base Excess 15.8 mEq/L (-2.0 to 3.0) H 07/15/16 08:13 Chloride 97 mEq/L (98-109) L 07/15/16 09:09 Carbon Dioxide 33 mEq/L (19-29) H 07/15/16 09:09 BUN 27 mg/dL (8-26) H 07/15/16 09:09 BUN/Creatinine Ratio 33 (6-26) H 07/15/16 09:09 Glucose 197 mg/dL (70-99) H 07/15/16 09:09 POC Glucose 101 (58-89) H 07/15/16 20:13 C-Reactive Protein 7 mg/L (Less than 5) H 07/13/16 03:15 B-Natriuretic Peptide 217 pg/mL (0-100) H 07/10/16 11:50 Albumin 2.8 g/dL (3.5-5.0) L 07/13/16 03:15 Albumin/Globulin Ratio 0.8 (1.1-2.2) L 07/13/16 03:15 - Clinical Findings Intake & Output: Intake & Output 07/15/16 07/15/16 07/16/16 15:59 23:59 07:59 Intake Total 250 / 250 0 / 0 270 / 270 Output Total 1350 / 1350 750 / 750 200 / 200 Balance -1100 / -1100 -750 / -750 70 / 70 Weight 188.1 kg Consult Discharge Plan - Plan Referrals: Jay Cool MD [NPP Staff] - 07/21/16 10:00 am NO,PCP [Primary Care Provider] - Erki Zayas DO [Partnered Physician] - (sent web request on 07-11-16 @ [phone])
[2016-07-16] MEDS: *HR* Amiodarone 200 MG TABLET PO SCH (07:22)
[2016-07-16] MEDS: Lactobacillus 1 EACH CAP.SPRINK PO SCH (07:22)
[2016-07-16] MEDS: Fluticasone Propionate Nasal 50 MCG/SPRAY BOTTLE NS SCH (07:23)
[2016-07-16] MEDS: Budesonide/Formoterol 160/4.5 MDI IH SCH (08:09)
[2016-07-16 12:52] LABS: BUN/Creatinine Ratio 31 (6-26); Blood Urea Nitrogen 26 mg/dL (8-26); Calcium 8.9 mg/dL (8.6-10.8); Carbon Dioxide 37 mEq/L (19-29); Chloride 98 mEq/L (98-109); Glucose 112 mg/dL (70-99); Osmolality,Calculated 298 (280-300); Potassium 4.2 mEq/L (3.5-4.5); Sodium 141 mEq/L (136-145); eGFR For African Americans > 60 (> 60); eGFR For Non-African Americans > 60 (> 60)
[2016-07-16 16:05] VITALS: BP 125/80
--- NOTE | 2016-07-16 16:07 | Discharge Summary ---
Date of Encounter: 07/16/16 Time of Encounter: 10:00 - Discharge Diagnosis (1) Acute on chronic respiratory failure with hypercapnia Priority: Primary Status: Acute (2) Acute exacerbation of chronic obstructive airways disease Priority: Secondary Status: Resolved (3) CHF exacerbation Priority: Secondary Status: Acute Qualifiers: Congestive heart failure type: diastolic Qualified Code(s): I50.33 - Acute on chronic diastolic (congestive) heart failure (4) Obesity hypoventilation syndrome Priority: Secondary Status: Chronic (5) Atrial fibrillation Priority: Secondary Status: Chronic Qualifiers: Atrial fibrillation type: chronic Qualified Code(s): I48.2 - Chronic atrial fibrillation - Discharge Medications Prescriptions: Ipratropium/Albuterol Neb [Duoneb] 3 ml IH Q6HR PRN #30 inhsol PRN Reason: Wheeze/shortness of breath Furosemide [Lasix] 40 mg PO BIDDIURETIC PRN #60 tablet PRN Reason: edema Metoprolol [Lopressor] 12.5 mg PO BID #30 tablet Home Medications: Amiodarone [Cordarone] 200 mg PO DAILY 05/04/15 [History] Atorvastatin Calcium [Lipitor] 80 mg PO DAILY 05/04/15 [History] Fluticasone Propionate Nasal [Flonase] 50 mcg NS DAILY 05/04/15 [History] Multivitamin/Ferrous Sulfate [One-Daily Jhsoi-Zpk-Vome Tab] 1 tab PO DAILY 05/04 [History] Fluticasone/Salmeterol [Advair Hfa 45-21 Mcg Inhaler] 1 puff IH BID 05/05/16 [ History] Potassium Chloride [Klor-Con 10] 20 meq PO DAILY 05/05/16 [History] Warfarin [Coumadin] 5 mg PO [id number] 05/05/16 [History] Albuterol Neb [Proventil Neb] 2.5 mg IH Q4HR PRN 14 Days 05/07/16 [Rx] Citalopram [CeleXA] 40 mg PO DAILY #20 tablet 05/28/16 [Rx] Oxygen 5 l IH AD #0 05/28/16 [Rx] Warfarin [Coumadin] 7.5 mg PO WRIGHT 07/10/16 [History] Furosemide [Lasix] 40 mg PO BIDDIURETIC PRN #60 tablet 07/16/16 [Rx] Ipratropium/Albuterol Neb [Duoneb] 3 ml IH Q6HR PRN #30 inhsol 07/16/16 [Rx] Metoprolol [Lopressor] 12.5 mg PO BID #30 tablet 07/16/16 [Rx] Allergies/Adverse Reactions: Allergies No Known Drug Allergies Allergy (Verified 05/22/16 18:38) See Comments Procedures/tests Complete & Pending: ITS Impressions Chest X-Ray 07/10/16 11:35 IMPRESSION: 1. Unchanged congestive heart failure. D/ / Donald Kahn MD / Donald Kahn MD Interpreting Provider: Donald Kahn MD Chest CTA 07/10/16 13:21 IMPRESSION: No CT evidence of pulmonary embolism as above. Small to moderate bilateral pleural effusions with associated bilateral lower lobe dependent consolidation, likely passive atelectasis. Pneumonia cannot be completely excluded. Diffuse bilateral pulmonary parenchymal ground-glass opacity as well as some interlobular septal thickening most compatible with pulmonary edema. D/ / Sissy Clay Cha, MD / Sissy Clay Cha, MD Interpreting Provider: Sissy Clay Cha, MD Chest X-Ray 07/13/16 10:26 IMPRESSION: 1. Improved pulmonary edema. There are still probably small bilateral pleural effusions, left side greater than right, with associated volume loss in the lung bases. D/ / Edwin Byrd MD / Edwin Byrd MD Interpreting Provider: Edwin Byrd MD Microbiology 07/10/16 16:42 Blood Culture - Final Peripheral Venipuncture No growth. 07/10/16 16:42 Blood Culture - Preliminary Peripheral Venipuncture No growth. 07/10/16 13:05 Urine Culture - Final Urine,Catheterized No growth. Date of admission: 07/10/16 17:17 Primary care physician: PCP NO Consults: Dr F[place]pur Discharging clinician: Jessica Hanks Anticipated date of discharge: 07/16/16 - Patient Status Disposition: Home, Self-Care Condition: Fair Functional capacity at discharge: independent ambulation Overall status at discharge: patient is progressing back to baseline - Discharge Instructions Follow Up With: Jay Cool MD [NPP Staff] - 07/21/16 10:00 am NO,PCP [Primary Care Provider] - Erik Zayas DO [Partnered Physician] - (sent web request on 07-11-16 @ [phone]) Jas Frey MD [Partnered Physician] - Additional Instructions: F/U With Dr Frey or Dr Novak in 2-4 weeks. Home BiPAP settings: 24/8; FiO2: 35% - Diet and Activity Activity: increase activity as tolerated Diet: advance to your usual diet, low salt diet, other (Fluid restrict to 1.5 - 2 L/day. Weigh daily - if you gain 2 lbs or more in a day - please contact your [employer] office. Follow up with [employer] in 1-2 weeks) Interval History: 55 year old male with past medical history of COPD on home oxygen, CHF, A. fib on Coumadin, hyperlipidemia, obstructive sleep apnea, morbid obesity with brought to the ER for evaluation of worsening shortness of breath and bilateral lower extremity edema. His initial ABG showed a pH of 7.37, PCO2 of 113 and PO2 of 39. He was started on BiPAP therapy and admitted to the hospitalist service. He had acute on chronic respiratory failure, Possibly due to combination of acute exacerbation of diastolic CHF, COPD exacerbation and obesity hypoventilation syndrome. Pulmonary physician was consulted for management of acute on chronic respiratory failure - his BiPAP was titrated and at discharge time his pressure settings were 24/8, with FiO2 of 35%. He was treated with intravenous Lasix infusion and he had over 10 L of negative fluid balance. He felt significantly improved at discharge time. Patient was counseled on various times about the importance of being compliant with his BiPAP at home. His BiPAP settings were communicated to the company providing his BiPAP. He was clinically stable at discharge time. Hospital course: Mr. Rubalcava is a 55 year old male - Time Spent with Patient Total time spent providing and/or coordinating discharge services: - Constitutional Vitals: Temp Pulse Resp BP Pulse Ox 98.3 F 93 18 125/80 97 07/16/16 16:03 07/16/16 16:03 07/16/16 16:03 07/16/16 16:03 07/16/16 16:03 Exam: General: Not in acute distress at the time of my evaluation Lungs: Clear to auscultation Cardiac: Regular rate and rhythm. No significant murmurs Abdomen: Obese, non tender. Bowel sounds present Neurological: Alert and oriented. No gross localizing deficits Psych: Not agrressive or agitated Extremities: Bilateral lower extremity edema
== END 2016-07-16 17:43 | disposition home or self-care (01) | DRG 291 ==
LOC: EMEROO 11:30 → 2NNU 11:30 → SUATTDRO 17:17 → ICNU 07-12 21:00 → 2NNU 07-15 18:16
PROVIDERS: ADMIT Internal Medicine; ATTEND Internal Medicine

== ENCOUNTER 2016-12-12 09:00 | Inpatient (IN) ==
--- NOTE | 2016-12-12 09:13 | Emergency Department Note ---
Disposition Clinical Impression: Hypoxemia, CHF (congestive heart failure), Dyspnea, HLD (hyperlipidemia), COPD (chronic obstructive pulmonary disease), Morbid obesity due to excess calories, FCI current use of anticoagulant therapy, Artificial pacemaker, CHF exacerbation, Pleural effusion, Acute on chronic respiratory failure with hypercapnia Disposition: Admitted As Inpatient Referrals: NO,PCP [Primary Care Provider] - Forms: ED Satisfaction Letter General Adult HPI - General Chief complaint: ED Shortness of Breath/Dyspnea Stated complaint: RADU, COPD Time Seen by Provider: 12/12/16 09:12 Source: patient Limitations: no limitations - History of Present Illness HPI Narrative: 76-year-old male with a history of COPD, CHF, atrial fibrillation, and cardiac pacemaker on Coumadin who wears 4 L of oxygen at home comes to the ED complaining of progressive shortness of breath over the last week. There is been some leg and abdominal swelling. He is also had a cough. The patient reports he has a history of pneumonia and thinks he may have pneumonia. There is no history of coughing up blood. No unilateral leg swelling or pain reported or noted. No syncope. There is no history of chest pain. Shortness of breath associated with a cough and edema or his major complaints. There is no history of abdominal pain vomiting or diarrhea. No problems moving the arms or legs independently. 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 There is no history of acute unilateral arm or leg weakness or numbness dysarthria or confusion. No reported fevers. Pain Scale: 4 - Related Data Home Medications Medication Instructions Recorded Confirmed Amiodarone [Cordarone] 200 mg PO DAILY 05/04/15 07/10/16 Atorvastatin Calcium [Lipitor] 80 mg PO DAILY 05/04/15 07/10/16 Fluticasone Propionate Nasal 50 mcg NS DAILY 05/04/15 07/10/16 [Flonase] Multivitamin/Ferrous Sulfate 1 tab PO DAILY 05/04/15 07/10/16 [One-Daily Ljsbm-Cmg-Upay Tab] Fluticasone/Salmeterol [Advair Hfa 1 puff IH BID 05/05/16 07/10/16 45-21 Mcg Inhaler] Potassium Chloride [Klor-Con 10] 20 meq PO DAILY 05/05/16 07/10/16 Warfarin [Coumadin] 5 mg PO MOTUWETHFRSA 05/05/16 07/10/16 Warfarin [Coumadin] 7.5 mg PO WRIGHT 07/10/16 07/10/16 Previous Rx's Medication Instructions Recorded Albuterol Neb [Proventil Neb] 2.5 mg IH Q4HR PRN 14 Days 05/07/16 Citalopram [CeleXA] 40 mg PO DAILY #20 tablet 05/28/16 Oxygen 5 l IH AD #0 05/28/16 Furosemide [Lasix] 40 mg PO BIDDIURETIC PRN #60 tablet 07/16/16 Ipratropium/Albuterol Neb [Duoneb] 3 ml IH Q6HR PRN #30 inhsol 07/16/16 Metoprolol [Lopressor] 12.5 mg PO BID #30 tablet 07/16/16 Allergies Allergy/AdvReac Type Severity Reaction Status Date / Time No Known Drug Allergies Allergy See Verified 05/22/16 18:38 Comments All systems ED: reviewed and negative except as stated. Past Medical History - Past Medical History Medical history: Reports: atrial fibrillation, CHF, COPD, other Surgical history: Reports: pacemaker/AICD Psychiatric history: Reports: anxiety, depression - Social History Smoking Status: Former smoker Smokeless Tobacco Status: No Alcohol use: Reports: none Drug use: Reports: none Physical Exam - General Limitations: no limitations General appearance: alert, in no apparent distress - Head Head exam: atraumatic, normocephalic, normal inspection - Eye Eye exam: Present: PERRL, EOMI, other (Slight ptosis on the right.). Absent: scleral icterus, conjunctival injection, miosis, mydriasis, periorbital swelling - ENT ENT exam: normal exam, normal oropharynx, mucous membranes moist - Neck Neck exam: Present: normal inspection, full ROM, trachea midline. Absent: meningismus - Chest Chest inspection: Present: normal inspection, symmetric chest wall rise - Respiratory Respiratory exam: Present: prolonged expiratory phase. Absent: wheezes, stridor , accessory muscle use - Cardiovascular Cardiovascular exam: Present: regular rate, normal rhythm - Abdominal Exam Abdominal exam: Present: soft, Non-Tender, normal bowel sounds, other ( Reducible umbilical hernia). Absent: tenderness, distention, guarding, rebound , rigidity - Extremities Exam Extremities exam: Present: full ROM, normal capillary refill, pedal edema, other (Lateral lower extremity venous stasis changes noted. All 4 extremities warm and well perfused without cyanosis.). Absent: tenderness, joint swelling, calf tenderness - Expanded Lower Extremity Exam Hip/Pelvis exam: Present: full ROM. Absent: tenderness Knee exam: Present: full ROM. Absent: tenderness Lower leg exam: Present: full ROM. Absent: tenderness, Homans' sign Neurovascular/Tendon exam: Present: normal capillary refill. Absent: motor deficit, sensory deficit, tendon deficit, extremity cold to touch, pallor - Back Exam Back exam: Present: full ROM. Absent: tenderness, CVA tenderness (R), CVA tenderness (L), vertebral tenderness - Neurological Exam Neurological exam: Present: alert, oriented X3, other (Slight right facial droop and ptosis on the right. Chronic secondary to Burch's palsy per the patient. No acute focal defects are noted based on history.). Absent: motor sensory deficit - Psychiatric Psychiatric exam: Present: normal affect, normal mood - Skin Skin exam: Present: warm, dry, intact, normal color. Absent: rash, cyanosis, diaphoresis, erythema, pallor, mottled Course Vital Signs Temperature 98.2 F 12/12/16 09:04 Pulse Rate 77 12/12/16 09:04 Respiratory Rate 24 12/12/16 09:04 Blood Pressure 120/51 12/12/16 09:04 O2 Sat by Pulse Oximetry 72 12/12/16 09:04 Temperature 98.2 F 12/12/16 09:04 Pulse Rate 69 12/12/16 11:13 Respiratory Rate 18 12/12/16 11:13 Blood Pressure 130/70 12/12/16 11:13 O2 Sat by Pulse Oximetry 96 12/12/16 11:13 Oxygen Delivery Oxygen Delivery Bipap Medical Decision Making - [facility] Narrative Medical decision making narrative: The patient's oxygen saturations were reportedly 72% initially, he wears 4 L of oxygen continuously at home. The patient has a history of COPD and CHF as well as atrial fibrillation he is taking anticoagulant medication has a pacemaker. The patient was given a DuoNeb Solu-Medrol and Lasix as well as nitro paste. Chest x-ray shows pleural effusions and changes suggestive of CHF. The patient' s CO2 level came back at 1:15, BiPAP was initiated. Based on the patient's age , initial O2 sat of 72%, CO2 levels at 115, BiPAP therapy initiated in the ED, with multiple cardiopulmonary comorbidities, I thought it would be appropriate to admit the patient to the hospital. The patient is currently stable. I discussed the case with the hospitalist on-call who has accepted the patient to their care. - Lab Data Lab results reviewed: Yes I reviewed the patient's lab results. Result diagrams: 12/12/16 09:33 12/12/16 09:33 Lab Results 12/12/16 12/12/16 12/12/16 Range/Units 09:33 09:33 09:33 WBC 8.9 (4.3-11.1) K/mcL RBC 4.58 (4.19-5.50) M/mcL Hgb 11.0 L (12.9-16.9) g/dL Hct 42.3 (37.5-50.1) % MCV 92.4 (83.0-100.0) fL MCH 24.0 L (28.0-33.3) pg MCHC 26.0 L (31.6-35.5) g/dL RDW 14.6 H (11.5-14.5) % Plt Count 185 (140-400) K/mcL MPV 9.6 (9.4-12.4) fL Immature Gran % 0.6 (0-4) % Seg Neutrophils % 80.4 % Lymphocytes % 8.7 % Monocytes % 8.8 % Eosinophils % 1.3 % Basophils % 0.2 % Neutrophils # 7.2 (1.6-8.9) K/mcL Lymphocytes # 0.8 (0.6-4.6) K/mcL Monocytes # 0.8 (0.0-1.3) K/mcL Eosinophils # 0.1 (0.0-0.6) K/mcL Basophils # 0.0 (0.0-0.2) K/mcL Platelet Estimate Normal (Normal) Hypochromasia Present A (Not Present) PT (9.4-12.1) Seconds INR APTT (26.0-36.0) Seconds ABG pH (7.32-7.45) pH Units ABG pCO2 (35-45) mmHg ABG pO2 (85-104) mmHg ABG HCO3 (21-27) mEQ/L ABG Total CO2 (20-26) mEq/L ABG O2 Saturation (95-98) % ABG Base Excess (-2.0 to 3.0) mEq/L Blood Gas Modality Inspired O2 % Sodium 147 H (136-145) mEq/L Potassium 4.6 H (3.5-4.5) mEq/L Chloride 94 L (98-109) mEq/L Carbon Dioxide 49 H* (19-29) mEq/L BUN 21 (8-26) mg/dL Creatinine 0.95 (0.72-1.25) mg/dL Est GFR ( Amer) > 60 (> 60) Est GFR (Non-Af Amer) > 60 (> 60) BUN/Creatinine Ratio 22 (6-26) Glucose 99 (70-99) mg/dL Calculated Osmolality 307 H (280-300) Lactic Acid (0.5-2.2) mmol/L Calcium 9.1 (8.6-10.8) mg/dL Total Bilirubin 0.4 (0.2-1.2) mg/dL Direct Bilirubin 0.2 (0.0-0.5) mg/dL Indirect Bilirubin 0.2 (0.0-1.2) mg/dL AST 16 (5-34) Units/L ALT 13 (0-55) Units/L Alkaline Phosphatase 114 (38-126) Units/L Troponin I 0.00 (0-0.03) ng/mL B-Natriuretic Peptide (0-100) pg/mL Serum Total Protein 6.8 (6.0-8.3) g/dL Albumin 3.0 L (3.5-5.0) g/dL Globulin 3.8 H (2.4-3.5) g/dL Albumin/Globulin Ratio 0.8 L (1.1-2.2) 12/12/16 12/12/16 12/12/16 Range/Units 09:33 09:37 09:37 WBC (4.3-11.1) K/mcL RBC (4.19-5.50) M/mcL Hgb (12.9-16.9) g/dL Hct (37.5-50.1) % MCV (83.0-100.0) fL MCH (28.0-33.3) pg MCHC (31.6-35.5) g/dL RDW (11.5-14.5) % Plt Count (140-400) K/mcL MPV (9.4-12.4) fL Immature Gran % (0-4) % Seg Neutrophils % % Lymphocytes % % Monocytes % % Eosinophils % % Basophils % % Neutrophils # (1.6-8.9) K/mcL Lymphocytes # (0.6-4.6) K/mcL Monocytes # (0.0-1.3) K/mcL Eosinophils # (0.0-0.6) K/mcL Basophils # (0.0-0.2) K/mcL Platelet Estimate (Normal) Hypochromasia (Not Present) PT 21.7 H (9.4-12.1) Seconds INR 2.0 APTT 38.0 H (26.0-36.0) Seconds ABG pH (7.32-7.45) pH Units ABG pCO2 (35-45) mmHg ABG pO2 (85-104) mmHg ABG HCO3 (21-27) mEQ/L ABG Total CO2 (20-26) mEq/L ABG O2 Saturation (95-98) % ABG Base Excess (-2.0 to 3.0) mEq/L Blood Gas Modality Inspired O2 % Sodium (136-145) mEq/L Potassium (3.5-4.5) mEq/L Chloride (98-109) mEq/L Carbon Dioxide (19-29) mEq/L BUN (8-26) mg/dL Creatinine (0.72-1.25) mg/dL Est GFR ( Amer) (> 60) Est GFR (Non-Af Amer) (> 60) BUN/Creatinine Ratio (6-26) Glucose (70-99) mg/dL Calculated Osmolality (280-300) Lactic Acid 1.7 (0.5-2.2) mmol/L Calcium (8.6-10.8) mg/dL Total Bilirubin (0.2-1.2) mg/dL Direct Bilirubin (0.0-0.5) mg/dL Indirect Bilirubin (0.0-1.2) mg/dL AST (5-34) Units/L ALT (0-55) Units/L Alkaline Phosphatase (38-126) Units/L Troponin I (0-0.03) ng/mL B-Natriuretic Peptide 80 (0-100) pg/mL Serum Total Protein (6.0-8.3) g/dL Albumin (3.5-5.0) g/dL Globulin (2.4-3.5) g/dL Albumin/Globulin Ratio (1.1-2.2) 12/12/16 Range/Units 10:17 WBC (4.3-11.1) K/mcL RBC (4.19-5.50) M/mcL Hgb (12.9-16.9) g/dL Hct (37.5-50.1) % MCV (83.0-100.0) fL MCH (28.0-33.3) pg MCHC (31.6-35.5) g/dL RDW (11.5-14.5) % Plt Count (140-400) K/mcL MPV (9.4-12.4) fL Immature Gran % (0-4) % Seg Neutrophils % % Lymphocytes % % Monocytes % % Eosinophils % % Basophils % % Neutrophils # (1.6-8.9) K/mcL Lymphocytes # (0.6-4.6) K/mcL Monocytes # (0.0-1.3) K/mcL Eosinophils # (0.0-0.6) K/mcL Basophils # (0.0-0.2) K/mcL Platelet Estimate (Normal) Hypochromasia (Not Present) PT (9.4-12.1) Seconds INR APTT (26.0-36.0) Seconds ABG pH 7.30 L (7.32-7.45) pH Units ABG pCO2 115 H* (35-45) mmHg ABG pO2 142 H (85-104) mmHg ABG HCO3 56.6 H (21-27) mEQ/L ABG Total CO2 > 60.0 H (20-26) mEq/L ABG O2 Saturation 99 H (95-98) % ABG Base Excess 24.0 H (-2.0 to 3.0) mEq/L Blood Gas Modality MASK Inspired O2 60 % Sodium (136-145) mEq/L Potassium (3.5-4.5) mEq/L Chloride (98-109) mEq/L Carbon Dioxide (19-29) mEq/L BUN (8-26) mg/dL Creatinine (0.72-1.25) mg/dL Est GFR ( Amer) (> 60) Est GFR (Non-Af Amer) (> 60) BUN/Creatinine Ratio (6-26) Glucose (70-99) mg/dL Calculated Osmolality (280-300) Lactic Acid (0.5-2.2) mmol/L Calcium (8.6-10.8) mg/dL Total Bilirubin (0.2-1.2) mg/dL Direct Bilirubin (0.0-0.5) mg/dL Indirect Bilirubin (0.0-1.2) mg/dL AST (5-34) Units/L ALT (0-55) Units/L Alkaline Phosphatase (38-126) Units/L Troponin I (0-0.03) ng/mL B-Natriuretic Peptide (0-100) pg/mL Serum Total Protein (6.0-8.3) g/dL Albumin (3.5-5.0) g/dL Globulin (2.4-3.5) g/dL Albumin/Globulin Ratio (1.1-2.2) - Radiology Data Radiology results reviewed: Yes I reviewed the patient's radiology results. Critical Care Time Critical Care Time: Yes (32 minutes) Attestation: 10 minutes initial evaluation 10 minutes documenting the medical record 5 minutes secondary evaluation and medical decision-making 7 minutes arranging for admission and discussing with the hospitalist.
[2016-12-12] MEDS ORDERED: Ipratropium/Albuterol Neb 3 ML IH ONE (09:28)
[2016-12-12] MEDS ORDERED: Furosemide 80 MG in 0.9 % Sodium Chloride 50 ML IVPB ONE (09:29)
[2016-12-12] MEDS ORDERED: methylPREDNISolone 125 MG/2 ML VIAL IVP ONE (09:29)
[2016-12-12 09:58] LABS: Basophils % 0.2 %; Eosinophils # 0.1 K/mcL (0.0-0.6); Eosinophils % 1.3 %; Hematocrit 42.3 % (37.5-50.1); Immature Granulocytes % 0.6 % (0-4); Lymphocytes # 0.8 K/mcL (0.6-4.6); Lymphocytes % 8.7 %; Mean Corpuscular Volume 92.4 fL (83.0-100.0); Mean Platelet Volume 9.6 fL (9.4-12.4); Monocytes # 0.8 K/mcL (0.0-1.3); Monocytes % 8.8 %; Neutrophils # 7.2 K/mcL (1.6-8.9); Platelet Count 185 K/mcL (140-400); Red Blood Count 4.58 M/mcL (4.19-5.50); Red Cell Distribution Width 14.6 % (11.5-14.5); Segmented Neutrophils % 80.4 %
[2016-12-12 10:01] LABS: Prothrombin Time 21.7 Seconds (9.4-12.1)
[2016-12-12] MEDS ORDERED: Nitroglycerin 1 INCH/GM PACKET TP ONE (10:14)
[2016-12-12 10:16] LABS: Hypochromasia Present (Not Present); Platelet Estimate Normal (Normal)
[2016-12-12 10:20] LABS: Alanine Aminotransferase 13 Units/L (0-55); Albumin/Globulin Ratio 0.8 (1.1-2.2); Alkaline Phosphatase 114 Units/L (38-126); Aspartate Amino Transferase 16 Units/L (5-34); BUN/Creatinine Ratio 22 (6-26); Bilirubin,Direct 0.2 mg/dL (0.0-0.5); Bilirubin,Indirect 0.2 mg/dL (0.0-1.2); Bilirubin,Total 0.4 mg/dL (0.2-1.2); Blood Urea Nitrogen 21 mg/dL (8-26); Calcium 9.1 mg/dL (8.6-10.8); Chloride 94 mEq/L (98-109); Globulin 3.8 g/dL (2.4-3.5); Glucose 99 mg/dL (70-99); Osmolality,Calculated 307 (280-300); Potassium 4.6 mEq/L (3.5-4.5); Sodium 147 mEq/L (136-145); Total Protein 6.8 g/dL (6.0-8.3); eGFR For African Americans > 60 (> 60); eGFR For Non-African Americans > 60 (> 60)
[2016-12-12 10:30] LABS: ABG HCO3 56.6 mEQ/L (21-27); ABG Oxygen Saturation 99 % (95-98); ABG PO2 142 mmHg (85-104); ABG TCO2 > 60.0 mEq/L (20-26)
[2016-12-12 10:32] LABS: ABG PCO2 115 mmHg (35-45); Blood Gas FiO2 60 %
[2016-12-12 10:39] LABS: Carbon Dioxide 49 mEq/L (19-29)
[2016-12-12 12:17] LABS: C-Reactive Protein 8 mg/L (Less than 5)
[2016-12-12] MEDS ORDERED: Ondansetron 4 MG/2 ML VIAL IVP PRN (12:27)
[2016-12-12] MEDS ORDERED: Naloxone 0.4 MG/ML INJ IVP PRN (12:27)
[2016-12-12] MEDS ORDERED: Acetaminophen 325 MG TABLET PO PRN (12:27)
[2016-12-12] MEDS ORDERED: *HR* HYDROcodone/Acet 5/325 mg TABLET PO PRN (12:27)
--- NOTE | 2016-12-12 12:59 | Internal Med History&Physical ---
Date of Encounter: 12/12/16 Time of Encounter: 12:00 Assessment and Plan (1) Acute on chronic respiratory failure with hypercapnia Current visit: Yes Status: Acute secondary to acute heart failure (LVEF 55% in Jul) in a patient with poor compliance with fluid restriction and diet intake. Patient has COPD and is oxygen dependant 4L NC. He is also morbidly obese with suspected GAVIN/OHS. He presents with progressive shortness of breath and abdominal swelling for the 2 weeks. Positive LE edema today. No cough. No chest pain. No fever. In our Ed, he was hypoxic on non-rebreather mask and was placed on BIPAP. First ABG showed respiratory acidosis with pH 7.30 and Co2 115. CXR reviewed by me and shows pulmonary vascular congestion and bilateral small pleural effusions. Normal WBC. He received IV Lasix 80 mg with 2150 ml of urine output. Repeat ABG after 2 hours on BIPAP showed pH 7.33, pCO2 106, pO2 87, SaO2 96. Patient is alert and wants to eat his tray. Continue BIPAP 16/8, FIO2 40%, lasix 40 mg bid, fluid restriction, duonebs. check serial troponins. switch to nasal cannula only for dinner. no signs of infection, no need for antibiotics. (2) Acute heart failure with normal ejection fraction Current visit: Yes Status: Acute plan as above (3) Atrial fibrillation Current visit: No Status: Chronic heart rate is adequate. continue home dose of amiodarone. Qualifiers: Atrial fibrillation type: chronic Qualified Code(s): I48.2 - Chronic atrial fibrillation (4) COPD (chronic obstructive pulmonary disease) Current visit: Yes Status: Chronic nebs. Qualifiers: COPD type: emphysema Emphysema type: centrilobular Qualified Code(s): J43.2 - Centrilobular emphysema (5) Obesity hypoventilation syndrome Current visit: No Status: Chronic (6) Morbid obesity with BMI of 60.0-69.9, adult Current visit: Yes Status: Acute bmi 63 (7) Respiratory acidosis Current visit: Yes Status: Acute secondary to pulmonary edema and COPD. resolved after starting BIPAP. (8) Metabolic alkalosis Current visit: Yes Status: Chronic bicarb 49 which is chronic for him. Given need for lasix with possibility to increase further bicarb I will order acetazolamide. Internal Medicine - H&P: HPI Chief complaint: shortness of breath and chills for the past 2 weeks. Admitted From: Home History of present illness: Mr. Rubalcava is a 56 year old male with past medical history of atrial fibrillation on coumadin, COPD oxygen dependant 4L NC, CHF, and morbid obesity. who presents with progressive shortness of breath and abdominal swelling for the 2 weeks. Positive LE edema today. No cough. No bleeding. No syncope. No chest pain. No fever. In our Ed, he was hypoxic on non-rebreather mask and he was placed on BIPAP. Past Med Surg Social Fam HX - Past Medical History Medical history: atrial fibrillation, CHF, COPD, other Psychiatric history: anxiety, depression - Past Surgical History Surgical History: pacemaker/AICD - Social History Smoking Status: Former smoker Smokeless Tobacco Status: No Alcohol use: none Drug use: none - Family History Mother Family Member Ethnicity: Non- Living Status: Still Living Hx Family Cardiac Disorders: No Hx Family Respiratory Disorders: No Hx Family Cancer: Yes Hx Family GI Disorders: No Hx Family Endocrine Disorder: No Father Family Member Ethnicity: Non- Living Status: Hx Family Cancer: Yes Hx Family GI Disorders: No Internal Medicine - H&P: Meds Amiodarone [Cordarone] 200 mg PO DAILY 05/04/15 [History] Atorvastatin Calcium [Lipitor] 80 mg PO DAILY 05/04/15 [History] Fluticasone Propionate Nasal [Flonase] 50 mcg NS DAILY 05/04/15 [History] Multivitamin/Ferrous Sulfate [One-Daily Hztzt-Fix-Wmrf Tab] 1 tab PO DAILY 05/04 [History] Fluticasone/Salmeterol [Advair Hfa 45-21 Mcg Inhaler] 1 puff IH BID 05/05/16 [ History] Potassium Chloride [Klor-Con 10] 20 meq PO DAILY 05/05/16 [History] Warfarin [Coumadin] 5 mg PO MOTUWETHFRSA 05/05/16 [History] Albuterol Neb [Proventil Neb] 2.5 mg IH Q4HR PRN 14 Days 05/07/16 [Rx] Citalopram [CeleXA] 40 mg PO DAILY #20 tablet 05/28/16 [Rx] Warfarin [Coumadin] 7.5 mg PO WRIGHT 07/10/16 [History] Furosemide [Lasix] 40 mg PO BIDDIURETIC PRN #60 tablet 07/16/16 [Rx] Albuterol Neb [Proventil Neb] 2.5 mg IH Q6H PRN 12/12/16 [History] Ammonium Lactate 1 appl TP BID 12/12/16 [History] Oxygen 4 l IH AD 12/12/16 [History] Allergies No Known Drug Allergies Allergy (Verified 12/12/16 11:28) See Comments ROS unobtainable: other (due to BIPAP) All Systems PM: A 10-system review of systems was performed and is negative for pertinent findings except as documented above in the HPI. - Constitutional Vitals: Temp Pulse Resp BP Pulse Ox 98.2 F 70 16 122/66 95 12/12/16 09:04 12/12/16 12:36 12/12/16 12:36 12/12/16 12:36 12/12/16 12:36 General appearance: Present: cooperative, A&O X 3, pleasant, no acute distress, answers questions appropriately Exam: patient has BIPAP mask on face. - Neck Neck exam general surgery: Present: supple, trachea midline. Absent: lymphadenopathy - Respiratory Respiratory exam: Present: rales (bibasal), rhonchi, wheezes - Cardiovascular Cardiovascular exam: Present: RRR - GI/Abdominal GI/Abdominal exam: Present: normal bowel sounds, soft. Absent: distended, tenderness - Extremities Exam Extremities exam: Present: pedal edema Additional comments: bilateral lower extremity skin changes from chronic venous stasis. - Back Exam Back exam: Absent: CVA tenderness (L), CVA tenderness (R) - Neurological Exam Neurological exam: Present: alert, oriented X3, no focal deficits, strengths equal and symetr throughout. Absent: pronater drift, facial droop, speech deficit - Skin Skin exam: Present: rash (upper back: there is a skin mass 2x3cm with mild hemorrhagic oozing.) Internal Med - H&P Results - Labs CBC & Chem 7: 12/12/16 09:33 12/12/16 09:33
[2016-12-12] MEDS: Ipratropium/Albuterol Neb 3 ML IH SCH ×3 (13:09→20:15)
[2016-12-12 13:19] LABS: ABG Base Excess 24.9 mEq/L (-2.0 to 3.0); ABG HCO3 55.9 mEQ/L (21-27); ABG Oxygen Saturation 96 % (95-98); ABG PH 7.33 pH Units (7.32-7.45); ABG PO2 87 mmHg (85-104); ABG TCO2 59.2 mEq/L (20-26)
[2016-12-12 13:20] LABS: Blood Gas FiO2 50 %
[2016-12-12 13:21] LABS: ABG PCO2 106 mmHg (35-45)
--- NOTE | 2016-12-12 16:19 | Electrocardiograph Report ---
[place] [facility] Test Date: 2016-12-12 Pat Name: Jesus Rubalcava Department: 102 Room: 2N04 Gender: M [employer]: : 1960 Requested By: Jay Lazo Order Number: [id number] Reading MD: Vincent Alonso DO Measurements Intervals [place] Rate: 81 P: 147 NE: 245 QRS: 99 QRSD: 104 T: 34 QT: 392 QTc: 429 Interpretive Statements ELECTRONIC ATRIAL PACEMAKER BORDERLINE RIGHT AXIS DEVIATION [QRS AXIS > 90] LOW QRS VOLTAGE IN PRECORDIAL LEADS [QRS DEFLECTION < 1.0 mV IN CHEST LEADS] ANTEROSEPTAL MYOCARDIAL INFARCTION [40+ ms Q WAVE IN V1-V4], OF INDETERMINATE AGE Electronically Signed On 12-12-2016 16:17:28 EDT by Vincent Alonso DO
[2016-12-12] MEDS ORDERED: *HR* Warfarin 4 MG TABLET PO ONE (18:00)
[2016-12-12] MEDS ORDERED: Warfarin perPT PO PRN (18:00)
[2016-12-12] MEDS ORDERED: *HR* Heparin 5,000 UNIT/ML VIAL SQ SCH (18:00)
[2016-12-12] MEDS: Furosemide 40 MG/4 ML VIAL IVP SCH (18:26)
[2016-12-12 18:45] LABS: ABG Base Excess 24.7 mEq/L (-2.0 to 3.0); ABG HCO3 55.4 mEQ/L (21-27); ABG Oxygen Saturation 97 % (95-98); ABG PH 7.33 pH Units (7.32-7.45); ABG PO2 95 mmHg (85-104); ABG TCO2 58.6 mEq/L (20-26); Blood Gas FiO2 50 %
[2016-12-12 18:46] LABS: ABG PCO2 105 mmHg (35-45)
[2016-12-12] MEDS ORDERED: Perflutren Lipid Microsphere 1.3 ML in 0.9 % Sodium Chloride 8.7 ML IVP ONE (21:00)
[2016-12-13] MEDS: Ipratropium/Albuterol Neb 3 ML IH SCH ×6 (00:15→20:17)
[2016-12-13 04:39] LABS: Basophils % 0.1 %
[2016-12-13 04:40] LABS: Hematocrit 41.6 % (37.5-50.1); Hemoglobin 11.2 g/dL (12.9-16.9); INR 1.9; Immature Granulocytes % 0.6 % (0-4); Lymphocytes # 0.8 K/mcL (0.6-4.6); Lymphocytes % 7.3 %; Mean Corpuscular HGB Conc 26.9 g/dL (31.6-35.5); Mean Corpuscular Volume 89.3 fL (83.0-100.0); Mean Platelet Volume 9.8 fL (9.4-12.4); Monocytes % 9.4 %; Neutrophils # 8.7 K/mcL (1.6-8.9); Platelet Count 216 K/mcL (140-400); Prothrombin Time 21.1 Seconds (9.4-12.1); Red Blood Count 4.66 M/mcL (4.19-5.50); Red Cell Distribution Width 14.7 % (11.5-14.5); Segmented Neutrophils % 82.6 %
[2016-12-13 04:53] LABS: BUN/Creatinine Ratio 26 (6-26); Blood Urea Nitrogen 22 mg/dL (8-26); Calcium 9.2 mg/dL (8.6-10.8); Chloride 92 mEq/L (98-109); Glucose 91 mg/dL (70-99); Magnesium 2.3 mg/dL (1.6-2.6); Osmolality,Calculated 299 (280-300); Phosphorous 3.7 mg/dL (2.3-4.7); Potassium 4.4 mEq/L (3.5-4.5); Sodium 143 mEq/L (136-145); eGFR For African Americans > 60 (> 60); eGFR For Non-African Americans > 60 (> 60)
[2016-12-13 04:54] LABS: Carbon Dioxide 47 mEq/L (19-29)
[2016-12-13 05:06] LABS: Platelet Estimate Normal (Normal)
[2016-12-13 05:08] LABS: Anisocytosis 1+ (Not Present); Hypochromasia Present (Not Present)
[2016-12-13 05:09] LABS: Large Platelets Present (Not Present)
[2016-12-13] MEDS: Pantoprazole 40 MG VIAL IVP SCH (08:31)
[2016-12-13] MEDS: Furosemide 40 MG/4 ML VIAL IVP SCH ×2 (08:31→17:54)
[2016-12-13] MEDS: *HR* Amiodarone 200 MG TABLET PO SCH (08:31)
[2016-12-13] MEDS: Fluticasone Propionate Nasal 50 MCG/SPRAY BOTTLE NS SCH (08:32)
--- NOTE | 2016-12-13 10:03 | Internal Med Progress Note ---
<Max Cuevas - Last Filed: 12/13/16 16:06> Date of Encounter: 12/13/16 Time of Encounter: 09:35 - Assessment and plan (1) Acute on chronic respiratory failure with hypercapnia Current Visit: Yes Status: Acute Assessment and plan: Patient current acute respiratory failure with acidosis due to acute exacerbation of heart failure. This current exacerbation likely due to poor compliance with home diet and fluid restriction. He was acidotic, hypoxic, with altered mentation of presentation. He was found to have Rales, rhonchi, and wheezing on auscultation with positive lower extremity edema. Chest x-ray performed that show pulmonary vascular congestion with small bilateral pleural effusions. He was placed on BiPAP and improvement was seen and patient respiratory status and mentation. Successful diuresis since yesterday of 4.4 L fluid. This current acute exacerbation and acute respiratory failure is on the background of chronic respiratory failure with hypercapnia. Patient has a history of COPD, heart failure with preserved ejection fraction, GAVIN, and obesity hypoventilation syndrome. He was slightly acidotic with pH of 7.30 at presentation, a pCO2 of 115 and bicarbonate of 49. These latter findings would suggest there is a large degree of chronic respiratory acidosis with metabolic compensatory pattern. Patient on 4 L nasal cannula at home normally. We will continue BiPAP as needed per patient respiration, wean to home oxygen ( 4 L) of possible OBTAIN overnight BiPAP qualification with ABG in the morning We will continue diuresis with 40 mg IV Lasix twice a day Continue fluid restriction of 1.6 L Continue breathing treatments (2) Acute heart failure with normal ejection fraction Current Visit: Yes Status: Acute Assessment and plan: Plan as above (3) COPD (chronic obstructive pulmonary disease) Current Visit: Yes Status: Chronic Assessment and plan: Patient on 4 L home O2. No wheezing on auscultation today. We will continue breathing treatments with duo nebs Qualifiers: COPD type: emphysema Emphysema type: centrilobular Qualified Code(s): J43.2 - Centrilobular emphysema (4) Atrial fibrillation Current Visit: No Status: Chronic Assessment and plan: Currently rate controlled and taking amiodarone and coumadin. Continue home amiodarone Continue home coumadin, dosed per pharmacy Qualifiers: Atrial fibrillation type: chronic Qualified Code(s): I48.2 - Chronic atrial fibrillation (5) DVT prophylaxis Current Visit: No Status: Acute Assessment and plan: Patient on coumadin at home for his A. Fib. INR checked today was sub- therapeutic at 1.9. Will continue coumadin dosed per pharmacy Will start EPCDs (6) Morbid obesity with BMI of 60.0-69.9, adult Current Visit: Yes Status: Acute (7) Obesity hypoventilation syndrome Current Visit: No Status: Chronic (8) GAVIN (obstructive sleep apnea) Current Visit: No Status: Chronic - Subjective Interval history: Patient reports he is doing slightly better than he was yesterday with increased ease of breathing. He states does continue to require BiPAP in order to help him breathe, but is able to get off her meals. He denies chest pain, pleuritic chest pain, cough, fever/chills. He states that he is continuing to have orthopnea, though he does admit to this day chronic problem for him at home. Patient has a Bucio in place and appears she has had good diuresis since yesterday with a net negative fluid balance of 4.4 L. - Constitutional Vitals: Temp Pulse Resp BP Pulse Ox 98.6 F 76 16 110/59 95 12/13/16 04:00 12/13/16 08:45 12/13/16 08:38 12/13/16 08:38 12/13/16 08:38 General appearance: Present: cooperative, A&O X 3, pleasant, no acute distress, answers questions appropriately Exam: General: Cooperative, pleasant, no acute distress, alert and oriented 3, answers questions appropriately HEENT: Normocephalic, atraumatic, neck supple, trachea midline, Conjunctiva pink , sclera anicteric, oral mucosa moist, slight swelling noted and patient face and around shoulders Respiratory: No accessory muscle usage, Rales auscultated bilaterally Cardiovascular: Regular rate and rhythm, S1 and S2 present, no murmurs/rubs/ gallops/clicks appreciated GI/abdominal: Nondistended, nontender, soft, normal bowel sounds, no peritoneal signs Extremities: No calf tenderness, noncyanotic, no pedal edema appreciated, warm, lower extremity pulses palpable and symmetrical Neurological: Alert and oriented 3, no facial droop, no focal deficits Skin: Dry, intact, normal color Internal Medicine: Result - Labs CBC & Chem 7: 12/13/16 04:07 12/13/16 04:07 Labs: Short CBC 12/13/16 Range/Units 04:07 WBC 10.5 (4.3-11.1) K/mcL Hgb 11.2 L (12.9-16.9) g/dL Hct 41.6 (37.5-50.1) % Plt Count 216 (140-400) K/mcL Neutrophils # 8.7 (1.6-8.9) K/mcL BMP 12/13/16 04:07 Sodium 143 Potassium 4.4 Chloride 92 L Carbon Dioxide 47 H* BUN 22 Creatinine 0.86 Glucose 91 Calcium 9.2 Cardiac Enzymes 12/12/16 Range/Units 15:10 Troponin I 0.01 (0-0.03) ng/mL - ABG Interpretation ABG results: ABG ABG pH 7.33 pH Units (7.32-7.45) 12/12/16 18:34 ABG pCO2 105 mmHg (35-45) H* 12/12/16 18:34 ABG pO2 95 mmHg (85-104) 12/12/16 18:34 ABG O2 Saturation 97 % (95-98) 12/12/16 18:34 PT/INR, D-dimer PT 21.1 Seconds (9.4-12.1) H 12/13/16 04:07 Consult Discharge Plan - Plan Referrals: Jay Cool MD [NPP Staff] - 12/26/16 2:20 pm <Rema More - Last Filed: 12/13/16 17:21> Date of Encounter: 12/13/16 - Assessment and plan (1) Acute on chronic respiratory failure with hypercapnia Current Visit: Yes Status: Acute (2) Acute heart failure with normal ejection fraction Current Visit: Yes Status: Acute (3) Atrial fibrillation Current Visit: No Status: Chronic Qualifiers: Atrial fibrillation type: chronic Qualified Code(s): I48.2 - Chronic atrial fibrillation (4) COPD (chronic obstructive pulmonary disease) Current Visit: Yes Status: Chronic Qualifiers: COPD type: emphysema Emphysema type: centrilobular Qualified Code(s): J43.2 - Centrilobular emphysema (5) Obesity hypoventilation syndrome Current Visit: No Status: Chronic (6) Morbid obesity with BMI of 60.0-69.9, adult Current Visit: Yes Status: Acute (7) Respiratory acidosis Current Visit: Yes Status: Acute (8) Metabolic alkalosis Current Visit: Yes Status: Chronic - Constitutional Vitals: Temp Pulse Resp BP Pulse Ox 98.6 F 72 14 114/54 94 12/13/16 16:03 12/13/16 16:03 12/13/16 16:29 12/13/16 16:03 12/13/16 16:29 Internal Medicine: Result - Labs CBC & Chem 7: 12/13/16 04:07 12/13/16 04:07 Labs: Short CBC 12/13/16 Range/Units 04:07 WBC 10.5 (4.3-11.1) K/mcL Hgb 11.2 L (12.9-16.9) g/dL Hct 41.6 (37.5-50.1) % Plt Count 216 (140-400) K/mcL Neutrophils # 8.7 (1.6-8.9) K/mcL BMP 12/13/16 04:07 Sodium 143 Potassium 4.4 Chloride 92 L Carbon Dioxide 47 H* BUN 22 Creatinine 0.86 Glucose 91 Calcium 9.2 - ABG Interpretation ABG results: ABG ABG pH 7.33 pH Units (7.32-7.45) 12/12/16 18:34 ABG pCO2 105 mmHg (35-45) H* 12/12/16 18:34 ABG pO2 95 mmHg (85-104) 12/12/16 18:34 ABG O2 Saturation 97 % (95-98) 12/12/16 18:34 PT/INR, D-dimer PT 21.1 Seconds (9.4-12.1) H 12/13/16 04:07 - Attending Attestation I examined this patient and reviewed laboratory, imaging and all diagnostic data. My medical decision-making was reviewed with Dr Max Cuevas - Resident Physician. I agree with the documented findings, disposition and treatment plan as described above.
[2016-12-13] MEDS ORDERED: *HR* Warfarin 5 MG TABLET PO ONE (18:00)
[2016-12-14] MEDS: Ipratropium/Albuterol Neb 3 ML IH SCH ×7 (00:03→23:23)
[2016-12-14 04:47] LABS: INR 1.8
[2016-12-14 04:53] LABS: Hemoglobin 11.3 g/dL (12.9-16.9); Immature Granulocytes % 0.3 % (0-4)
[2016-12-14 04:54] LABS: Basophils % 0.3 %; Eosinophils # 0.1 K/mcL (0.0-0.6); Eosinophils % 1.5 %; Hematocrit 41.4 % (37.5-50.1); Lymphocytes % 11.9 %; Mean Corpuscular HGB Conc 27.3 g/dL (31.6-35.5); Mean Corpuscular Volume 87.9 fL (83.0-100.0); Mean Platelet Volume 9.6 fL (9.4-12.4); Monocytes # 0.7 K/mcL (0.0-1.3); Monocytes % 7.9 %; Neutrophils # 6.8 K/mcL (1.6-8.9); Platelet Count 194 K/mcL (140-400); Red Blood Count 4.71 M/mcL (4.19-5.50); Red Cell Distribution Width 14.6 % (11.5-14.5); Segmented Neutrophils % 78.1 %
[2016-12-14 04:59] LABS: BUN/Creatinine Ratio 31 (6-26); Blood Urea Nitrogen 27 mg/dL (8-26); Calcium 9.1 mg/dL (8.6-10.8); Chloride 93 mEq/L (98-109); Glucose 94 mg/dL (70-99); Osmolality,Calculated 297 (280-300); Potassium 4.4 mEq/L (3.5-4.5); Sodium 141 mEq/L (136-145); eGFR For African Americans > 60 (> 60); eGFR For Non-African Americans > 60 (> 60)
[2016-12-14 05:02] LABS: Carbon Dioxide 47 mEq/L (19-29)
[2016-12-14 05:23] LABS: ABG Base Excess 22.8 mEq/L (-2.0 to 3.0); ABG HCO3 54.6 mEQ/L (21-27); ABG Oxygen Saturation 93 % (95-98); ABG PH 7.32 pH Units (7.32-7.45); ABG PO2 71 mmHg (85-104); ABG TCO2 57.9 mEq/L (20-26)
[2016-12-14 05:24] LABS: Blood Gas FiO2 40 %
[2016-12-14 05:26] LABS: Hypochromasia Present (Not Present)
[2016-12-14 05:27] LABS: Anisocytosis 1+ (Not Present); Platelet Estimate Normal (Normal)
[2016-12-14 05:28] LABS: Stomatocytes 1+ (Not Present)
[2016-12-14 05:33] LABS: ABG PCO2 106 mmHg (35-45)
[2016-12-14] MEDS: Furosemide 40 MG/4 ML VIAL IVP SCH ×2 (10:08→17:10)
[2016-12-14] MEDS: *HR* Amiodarone 200 MG TABLET PO SCH (10:08)
[2016-12-14] MEDS: Fluticasone Propionate Nasal 50 MCG/SPRAY BOTTLE NS SCH (10:08)
[2016-12-14] MEDS: Pantoprazole 40 MG VIAL IVP SCH (10:08)
--- NOTE | 2016-12-14 11:15 | Internal Med Progress Note ---
<Max Cuevas - Last Filed: 12/14/16 11:13> Date of Encounter: 12/14/16 Time of Encounter: 08:30 - Assessment and plan (1) Acute on chronic respiratory failure with hypercapnia Current Visit: Yes Status: Acute Assessment and plan: Patient current acute respiratory failure with acidosis due to acute exacerbation of heart failure. This current exacerbation likely due to poor compliance with home diet and fluid restriction. He was acidotic, hypoxic, with altered mentation at presentation. He was found to have Rales, rhonchi, and wheezing on auscultation with positive lower extremity edema. Chest x-ray performed that show pulmonary vascular congestion with small bilateral pleural effusions. He was placed on BiPAP and improvement was seen and patient respiratory status and mentation. Successful diuresis of 4.4 L fluid on and 2.2 L on 12/13/16. This current acute exacerbation and acute respiratory failure is on the background of chronic respiratory failure with hypercapnia. Patient has a history of COPD, heart failure with preserved ejection fraction, GAVIN, and obesity hypoventilation syndrome. He was slightly acidotic with pH of 7.30 at presentation, a pCO2 of 115 and bicarbonate of 49. These latter findings would suggest there is a large degree of chronic respiratory acidosis with metabolic compensatory pattern. Patient on 4 L nasal cannula at home normally. We will continue BiPAP as needed per patient respiration, wean to home oxygen ( 4 L) of possible We will continue diuresis with 40 mg IV Lasix twice a day, and likely reduced diuresis tomorrow morning Continue fluid restriction of 1.6 L Continue breathing treatments (2) Acute heart failure with normal ejection fraction Current Visit: Yes Status: Acute Assessment and plan: Plan as above (3) COPD (chronic obstructive pulmonary disease) Current Visit: Yes Status: Chronic Assessment and plan: Patient on 4 L home O2. No wheezing on auscultation today. We will continue breathing treatments with duo nebs Qualifiers: COPD type: emphysema Emphysema type: centrilobular Qualified Code(s): J43.2 - Centrilobular emphysema (4) Atrial fibrillation Current Visit: No Status: Chronic Assessment and plan: Currently rate controlled and taking amiodarone and coumadin. Continue home amiodarone Continue home coumadin, dosed per pharmacy INR subtherapeutic, will start EPCDs Qualifiers: Atrial fibrillation type: chronic Qualified Code(s): I48.2 - Chronic atrial fibrillation (5) DVT prophylaxis Current Visit: No Status: Acute Assessment and plan: Patient on coumadin at home for his A. Fib. INR checked today was sub- therapeutic at 1.8. Will continue coumadin dosed per pharmacy Will start EPCDs (6) Morbid obesity with BMI of 60.0-69.9, adult Current Visit: Yes Status: Acute (7) Obesity hypoventilation syndrome Current Visit: No Status: Chronic (8) GAVIN (obstructive sleep apnea) Current Visit: No Status: Chronic - Subjective Interval history: Patient is resting comfortably with nasal cannula. Patient reports some improvement of symptoms today, with improvement of his shortness of breath and orthopnea, but not entirely resolved. He does state that he would like to go back on his BiPAP after I left the room. He denies palpitations, denies chest pain. In additional 2.2 L diuresis yesterday. - Constitutional Vitals: Temp Pulse Resp BP Pulse Ox 98.0 F 73 15 120/61 95 12/14/16 07:55 12/14/16 10:00 12/14/16 10:00 12/14/16 07:55 12/14/16 10:00 General appearance: Present: cooperative, A&O X 3, pleasant, no acute distress, answers questions appropriately Exam: General: Cooperative, pleasant, no acute distress, alert and oriented 3, answers questions appropriately HEENT: Normocephalic, atraumatic, neck supple, trachea midline, Conjunctiva pink , sclera anicteric, oral mucosa moist, slight swelling noted and patient face and around shoulders Respiratory: No accessory muscle usage, Rales auscultated bilaterally Cardiovascular: Regular rate and rhythm, S1 and S2 present, no murmurs/rubs/ gallops/clicks appreciated GI/abdominal: Nondistended, nontender, soft, normal bowel sounds, no peritoneal signs Extremities: No calf tenderness, noncyanotic, mild pedal edema appreciated, warm , lower extremity pulses palpable and symmetrical Neurological: Alert and oriented 3, no facial droop, no focal deficits Skin: Dry, intact, normal color Internal Medicine: Result - Labs CBC & Chem 7: 12/14/16 04:09 12/14/16 04:09 Labs: Short CBC 12/14/16 Range/Units 04:09 WBC 8.7 (4.3-11.1) K/mcL Hgb 11.3 L (12.9-16.9) g/dL Hct 41.4 (37.5-50.1) % Plt Count 194 (140-400) K/mcL Neutrophils # 6.8 (1.6-8.9) K/mcL BMP 12/14/16 04:09 Sodium 141 Potassium 4.4 Chloride 93 L Carbon Dioxide 47 H* BUN 27 H Creatinine 0.86 Glucose 94 Calcium 9.1 - ABG Interpretation ABG results: ABG ABG pH 7.32 pH Units (7.32-7.45) 12/14/16 05:13 ABG pCO2 106 mmHg (35-45) H* 12/14/16 05:13 ABG pO2 71 mmHg (85-104) L 12/14/16 05:13 ABG O2 Saturation 93 % (95-98) L 12/14/16 05:13 PT/INR, D-dimer PT 20.0 Seconds (9.4-12.1) H 12/14/16 04:09 Consult Discharge Plan - Plan Referrals: Jay Cool MD [NPP Staff] - 12/26/16 2:20 pm <Rema More - Last Filed: 12/14/16 16:27> Date of Encounter: 12/14/16 - Assessment and plan (1) Acute on chronic respiratory failure with hypercapnia Current Visit: Yes Status: Acute (2) Acute heart failure with normal ejection fraction Current Visit: Yes Status: Acute (3) Atrial fibrillation Current Visit: No Status: Chronic Qualifiers: Atrial fibrillation type: chronic Qualified Code(s): I48.2 - Chronic atrial fibrillation (4) COPD (chronic obstructive pulmonary disease) Current Visit: Yes Status: Chronic Qualifiers: COPD type: emphysema Emphysema type: centrilobular Qualified Code(s): J43.2 - Centrilobular emphysema (5) Obesity hypoventilation syndrome Current Visit: No Status: Chronic (6) Morbid obesity with BMI of 60.0-69.9, adult Current Visit: Yes Status: Acute (7) Respiratory acidosis Current Visit: Yes Status: Acute (8) Metabolic alkalosis Current Visit: Yes Status: Chronic - Constitutional Vitals: Temp Pulse Resp BP Pulse Ox 98.1 F 76 18 131/73 94 12/14/16 15:00 12/14/16 15:00 12/14/16 16:23 12/14/16 15:00 12/14/16 16:23 Internal Medicine: Result - Labs CBC & Chem 7: 12/14/16 04:09 12/14/16 04:09 Labs: Short CBC 12/14/16 Range/Units 04:09 WBC 8.7 (4.3-11.1) K/mcL Hgb 11.3 L (12.9-16.9) g/dL Hct 41.4 (37.5-50.1) % Plt Count 194 (140-400) K/mcL Neutrophils # 6.8 (1.6-8.9) K/mcL BMP 12/14/16 04:09 Sodium 141 Potassium 4.4 Chloride 93 L Carbon Dioxide 47 H* BUN 27 H Creatinine 0.86 Glucose 94 Calcium 9.1 - ABG Interpretation ABG results: ABG ABG pH 7.32 pH Units (7.32-7.45) 12/14/16 05:13 ABG pCO2 106 mmHg (35-45) H* 12/14/16 05:13 ABG pO2 71 mmHg (85-104) L 12/14/16 05:13 ABG O2 Saturation 93 % (95-98) L 12/14/16 05:13 PT/INR, D-dimer PT 20.0 Seconds (9.4-12.1) H 12/14/16 04:09 - Attending Attestation I examined this patient and reviewed laboratory, imaging and all diagnostic data. My medical decision-making was reviewed with Dr Max Cuevas - Resident Physician. I agree with the documented findings, disposition and treatment plan as described above.
[2016-12-14 17:37] LABS: Bilirubin,Urine Negative (Negative); Blood,Urine Large (Negative); Clarity,Urine Cloudy (Clear); Color,Urine Red (Yellow); Glucose,Urine (UA) Normal (Normal); Ketones,Urine Negative (Negative); Leukocyte Esterase,Urine Small (Negative); Nitrite,Urine Negative (Negative); Protein,Urine 100 mg/dL (Neg-Trace); Urobilinogen,Urine Normal (Normal)
[2016-12-14 17:39] LABS: Bacteria,Urine None Seen per hpf (None-Few); Hyaline Casts,Urine None Seen per lpf (None-Few); RBC,Urine TNTC per hpf (0-3); Squamous Epithelial Cell,Urine Moderate per lpf (None-Few)
[2016-12-14] MEDS ORDERED: *HR* Warfarin 5 MG TABLET PO ONE (18:00)
[2016-12-15] MEDS: Ipratropium/Albuterol Neb 3 ML IH SCH ×4 (03:56→15:58)
[2016-12-15 06:07] LABS: INR 1.8; Prothrombin Time 19.2 Seconds (9.4-12.1)
[2016-12-15 06:12] LABS: Immature Granulocytes % 0.4 % (0-4); Red Cell Distribution Width 14.6 % (11.5-14.5); Segmented Neutrophils % 77.1 %
[2016-12-15 06:13] LABS: Basophils % 0.2 %; Eosinophils # 0.2 K/mcL (0.0-0.6); Eosinophils % 2.6 %; Hematocrit 41.6 % (37.5-50.1); Hemoglobin 11.7 g/dL (12.9-16.9); Lymphocytes # 0.9 K/mcL (0.6-4.6); Lymphocytes % 10.3 %; Mean Corpuscular HGB Conc 28.1 g/dL (31.6-35.5); Mean Corpuscular Hemoglobin 24.8 pg (28.0-33.3); Mean Corpuscular Volume 88.3 fL (83.0-100.0); Mean Platelet Volume 9.7 fL (9.4-12.4); Monocytes # 0.8 K/mcL (0.0-1.3); Monocytes % 9.4 %; Neutrophils # 6.6 K/mcL (1.6-8.9); Platelet Count 191 K/mcL (140-400); Red Blood Count 4.71 M/mcL (4.19-5.50)
[2016-12-15 06:22] LABS: BUN/Creatinine Ratio 29 (6-26); Blood Urea Nitrogen 24 mg/dL (8-26); Calcium 9.1 mg/dL (8.6-10.8); Chloride 94 mEq/L (98-109); Glucose 110 mg/dL (70-99); Osmolality,Calculated 297 (280-300); Sodium 141 mEq/L (136-145); eGFR For African Americans > 60 (> 60); eGFR For Non-African Americans > 60 (> 60)
[2016-12-15 06:25] LABS: Carbon Dioxide 41 mEq/L (19-29)
[2016-12-15 06:51] LABS: Platelet Estimate Normal (Normal)
[2016-12-15 06:52] LABS: Hypochromasia Present (Not Present)
[2016-12-15] MEDS: Pantoprazole 40 MG VIAL IVP SCH (07:59)
[2016-12-15] MEDS: Furosemide 40 MG/4 ML VIAL IVP SCH (07:59)
[2016-12-15] MEDS: *HR* Amiodarone 200 MG TABLET PO SCH (07:59)
[2016-12-15] MEDS: Fluticasone Propionate Nasal 50 MCG/SPRAY BOTTLE NS SCH (08:00)
[2016-12-15 12:03] VITALS: BP 136/86
--- NOTE | 2016-12-15 13:18 | Discharge Summary ---
<Max Cuevas - Last Filed: 12/15/16 13:13> Date of Encounter: 12/15/16 Time of Encounter: 09:55 - Discharge Diagnosis (1) Acute on chronic respiratory failure with hypercapnia Priority: Primary Status: Acute (2) Acute heart failure with normal ejection fraction Priority: Primary Status: Acute (3) COPD (chronic obstructive pulmonary disease) Priority: Secondary Status: Chronic Qualifiers: COPD type: emphysema Emphysema type: centrilobular Qualified Code(s): J43.2 - Centrilobular emphysema (4) Atrial fibrillation Priority: Secondary Status: Chronic Qualifiers: Atrial fibrillation type: chronic Qualified Code(s): I48.2 - Chronic atrial fibrillation (5) DVT prophylaxis Priority: Secondary Status: Acute (6) Morbid obesity with BMI of 60.0-69.9, adult Priority: Secondary Status: Acute (7) Obesity hypoventilation syndrome Priority: Secondary Status: Chronic (8) GAVIN (obstructive sleep apnea) Priority: Secondary Status: Chronic - Discharge Medications Prescriptions: Furosemide [Lasix] 60 mg IVP BIDDIURETIC 30 Days Home Medications: Amiodarone [Cordarone] 200 mg PO DAILY 05/04/15 [History] Atorvastatin Calcium [Lipitor] 80 mg PO DAILY 05/04/15 [History] Fluticasone Propionate Nasal [Flonase] 50 mcg NS DAILY 05/04/15 [History] Multivitamin/Ferrous Sulfate [One-Daily Ndivc-Lyk-Ooko Tab] 1 tab PO DAILY 05/04 [History] Fluticasone/Salmeterol [Advair Hfa 45-21 Mcg Inhaler] 1 puff IH BID 05/05/16 [ History] Potassium Chloride [Klor-Con 10] 20 meq PO DAILY 05/05/16 [History] Warfarin [Coumadin] 5 mg PO [id number] 05/05/16 [History] Albuterol Neb [Proventil Neb] 2.5 mg IH Q4HR PRN 14 Days 05/07/16 [Rx] Citalopram [CeleXA] 40 mg PO DAILY #20 tablet 05/28/16 [Rx] Warfarin [Coumadin] 7.5 mg PO WRIGHT 07/10/16 [History] Albuterol Neb [Proventil Neb] 2.5 mg IH Q6H PRN 12/12/16 [History] Ammonium Lactate 1 appl TP BID 12/12/16 [History] Oxygen 4 l IH AD 12/12/16 [History] Furosemide [Lasix] 60 mg IVP BIDDIURETIC 30 Days 12/15/16 [Rx] Allergies/Adverse Reactions: Allergies No Known Drug Allergies Allergy (Verified 12/12/16 11:28) See Comments Procedures/tests Complete & Pending: Procedures Performed prior 72 hours Category Date Time Status EV echocardiogram w enhance Routine Y 12/12/16 14:29 Completed Date of admission: 12/12/16 12:27 Primary care physician: PCP NO Consults: 12/14/16 09:47 Consult to Nursery Technician [CONS] Routine Reason for SW Consult: BIPAP, abg shows pCO2 104. Discharging clinician: Max Cuevas Anticipated date of discharge: 12/15/16 - Patient Status Disposition: Home, Self-Care Condition: Good Functional capacity at discharge: independent ambulation Overall status at discharge: patient is back to baseline - Discharge Instructions Instructions: Heart Failure (DC) Follow Up With: Jay Cool MD [NPP Staff] - 12/26/16 2:20 pm Additional Instructions: Take all medications prescribed: Dose of by mouth Lasix increased to 60 mg twice a day Continue other home medications as usual including home oxygen Start home fluid restriction of 1.5 L daily Start monitoring her weight daily, a significant increase in weight seen call your PCP and consider additional dose of Lasix Follow-up with her PCP in 1-2 weeks for reassessment of fluid status and new dose of Lasix Return to emergency department if continued difficulty breathing, development chest pain, development of palpitations - Diet and Activity Activity: increase activity as tolerated Diet: low salt diet Interval History: Patient reports feeling well today, at his baseline in terms of breathing status. He states he is able to lie down without too much problem. He denies any increased difficulty breathing, denies chest pain, denies fevers/chills, states his cough is now gone. Hospital course: Mr. Rubalcava is a 56 year old male with prior medical history of atrial fibrillation, CHF, COPD, and has pacemaker in place who presents to [facility] on 06/18 and acute respiratory failure with hypercapnia and acute exacerbation of CHF. His exacerbation is likely due to noncompliance with diet at home. During the duration of his stay he was diuresed a total of 10.8 L net loss of fluids while receiving 40 mg IV Lasix twice a day. After 2 days of diuresis patient's breathing improved significantly and he is safe/stable for return home with continuation with home O2 regimen and increase of Lasix to 60 mg twice a day. He has been instructed to monitor his weight daily and to impose a fluid restriction at home of 1.5 L. - Time Spent with Patient Total time spent providing and/or coordinating discharge services: - Constitutional Vitals: Temp Pulse Resp BP Pulse Ox 98.1 F 71 18 136/86 93 12/15/16 11:58 12/15/16 12:08 12/15/16 11:58 12/15/16 11:58 12/15/16 11:58 General appearance: Present: cooperative, A&O X 3, pleasant, no acute distress, answers questions appropriately Exam: General: Cooperative, pleasant, no acute distress, alert and oriented 3, answers questions appropriately HEENT: Normocephalic, atraumatic, neck supple, trachea midline, Conjunctiva pink , sclera anicteric, oral mucosa moist, slight swelling noted and patient face and around shoulders Respiratory: No accessory muscle usage, Rales auscultated bilaterally Cardiovascular: Regular rate and rhythm, S1 and S2 present, no murmurs/rubs/ gallops/clicks appreciated GI/abdominal: Nondistended, nontender, soft, normal bowel sounds, no peritoneal signs Extremities: No calf tenderness, noncyanotic, mild pedal edema appreciated, warm , lower extremity pulses palpable and symmetrical Neurological: Alert and oriented 3, no facial droop, no focal deficits Skin: Dry, intact, normal color <Rema More - Last Filed: 12/15/16 15:46> Date of Encounter: 12/15/16 - Discharge Diagnosis (1) Acute on chronic respiratory failure with hypercapnia Status: Acute (2) Acute heart failure with normal ejection fraction Status: Acute (3) Atrial fibrillation Status: Chronic Qualifiers: Atrial fibrillation type: chronic Qualified Code(s): I48.2 - Chronic atrial fibrillation (4) COPD (chronic obstructive pulmonary disease) Status: Chronic Qualifiers: COPD type: emphysema Emphysema type: centrilobular Qualified Code(s): J43.2 - Centrilobular emphysema (5) Obesity hypoventilation syndrome Status: Chronic (6) Morbid obesity with BMI of 60.0-69.9, adult Status: Acute (7) Respiratory acidosis Status: Acute (8) Metabolic alkalosis Status: Chronic Date of admission: 12/12/16 12:27 Primary care physician: PCP NO Consults: 12/14/16 09:47 Consult to Nursery Technician [CONS] Routine Reason for SW Consult: BIPAP, abg shows pCO2 104. Hospital course: Mr. Rubalcava is a 56 year old male - Time Spent with Patient Total time spent providing and/or coordinating discharge services: - Constitutional Vitals: Temp Pulse Resp BP Pulse Ox 98.1 F 71 18 136/86 93 12/15/16 11:58 12/15/16 12:08 12/15/16 11:58 12/15/16 11:58 12/15/16 11:58 - Attending Attestation I examined this patient and reviewed laboratory, imaging and all diagnostic data. My medical decision-making was reviewed with Dr Max Cuevas - Resident Physician. I agree with the documented findings, disposition and treatment plan as described above.
[2016-12-15] MEDS ORDERED: Aminoglycoside Consult 1 EACH MC ONE (16:29)
[2016-12-15] MEDS ORDERED: *HR* Warfarin 7.5 MG TABLET PO ONE (18:00)
== END 2016-12-15 16:30 | disposition home or self-care (01) | DRG 189 ==
LOC: EMEROO 09:00 → 2NNU 09:00 → SUATTDRO 12:27 → 2NNU 15:40
PROVIDERS: ADMIT Internal Medicine; ATTEND Internal Medicine

== ENCOUNTER 2017-11-23 15:42 | Inpatient (IN) ==
[2017-11-23 16:37] LABS: Basophils % 0.2 %
[2017-11-23 16:38] LABS: Eosinophils # 0.1 K/mcL (0.0-0.6); Hematocrit 40.3 % (37.5-50.1); Immature Granulocytes % 0.5 % (0-4); Lymphocytes # 0.9 K/mcL (0.6-4.6); Lymphocytes % 8.8 %; Mean Corpuscular HGB Conc 27.3 g/dL (31.6-35.5); Mean Corpuscular Hemoglobin 25.6 pg (28.0-33.3); Mean Corpuscular Volume 93.9 fL (83.0-100.0); Mean Platelet Volume 9.6 fL (9.4-12.4); Monocytes # 0.8 K/mcL (0.0-1.3); Monocytes % 7.6 %; Neutrophils # 8.2 K/mcL (1.6-8.9); Platelet Count 196 K/mcL (140-400); Red Blood Count 4.29 M/mcL (4.19-5.50); Red Cell Distribution Width 15.4 % (11.5-14.5); Segmented Neutrophils % 81.9 %
[2017-11-23 16:56] LABS: Troponin I < 0.03 ng/mL (< 0.04)
[2017-11-23 16:57] LABS: Basophilic Stippling 1+ (Not Present); Platelet Estimate Normal (Normal)
[2017-11-23 16:58] LABS: Polychromasia 1+ (Not Present)
[2017-11-23] MEDS ORDERED: Ipratropium/Albuterol Neb 3 ML IH ONE (17:00)
[2017-11-23] MEDS ORDERED: methylPREDNISolone 125 MG/2 ML VIAL IVP ONE (17:00)
[2017-11-23 17:02] LABS: Alanine Aminotransferase 10 Units/L (7-52); Albumin 3.4 g/dL (3.5-5.7); Albumin/Globulin Ratio 1.1 (1.1-2.2); Alkaline Phosphatase 104 Units/L (34-104); Aspartate Amino Transferase 14 Units/L (13-39); BUN/Creatinine Ratio 24 (6-26); Bilirubin,Total 0.6 mg/dL (0.3-1.0); Blood Urea Nitrogen 19 mg/dL (6-20); Carbon Dioxide > 45 mEq/L (23-29); Chloride 91 mEq/L (98-107); Glucose 134 mg/dL (70-105); Osmolality,Calculated 304 (280-300); Potassium 4.1 mEq/L (3.5-5.1); Sodium 145 mEq/L (136-145); Total Protein 6.4 g/dL (6.4-8.9); eGFR For African Americans > 60 (> 60); eGFR For Non-African Americans > 60 (> 60)
[2017-11-23 17:18] LABS: INR 1.8; Prothrombin Time 19.2 Seconds (9.4-12.1)
[2017-11-23] MEDS ORDERED: Levofloxacin 750 MG/150 ML 750 MG/150 ML BAG IVPB ONE (17:22)
--- NOTE | 2017-11-23 17:32 | Emergency Department Note ---
Disposition Clinical Impression: COPD exacerbation Disposition: Admitted As Inpatient Condition: Fair Referrals: NONE,PCP [Primary Care Provider] - Forms: ED Satisfaction Letter General Adult HPI - General Chief complaint: ED Shortness of Breath/Dyspnea Stated complaint: RADU Time Seen by Provider: 11/23/17 16:15 Source: patient Limitations: no limitations Nursing Notes Reviewed: Yes Vital Signs Reviewed: Yes - History of Present Illness HPI Narrative: Patient presents with past mental history of atrial fibrillation on Coumadin, CHF, COPD, hyperlipidemia, hypertension and pacemaker. The patient has had recent admission for COPD exacerbation. Discharge 3 weeks ago. Patient states she never really returned to baseline. Started feeling bad about 2 days ago. No fevers and chills. No productive cough. Patient typically wears 2 L of oxygen at home. Patient had increased this to 4. Continue to feel short of breath and continued to have pulse ox of 80%. A flowers is significantly overweight. Difficult to hear specific breath sounds. Does wear CPAP at home and does feel that he would benefit. BiPAP placed. Antibiotics and chest x- ray ordered. Patient will be further evaluated for possible CHF component. Patient will get duo nebs as well as steroids and admitted to the hospitalist for further evaluation. Pain Scale: 7 - Related Data Home Medications Medication Instructions Recorded Confirmed Atorvastatin Calcium [Lipitor] 80 mg PO DAILY 05/04/15 11/23/17 Multivitamin/Ferrous Sulfate 1 tab PO DAILY 05/04/15 11/23/17 [One-Daily Iuccw-Xiw-Vmgc Tab] Fluticasone/Salmeterol [Advair Hfa 1 puff IH BID 05/05/16 11/23/17 45-21 Mcg Inhaler] Potassium Chloride [Klor-Con 10] 20 meq PO DAILY 05/05/16 11/23/17 Warfarin [Coumadin] 7.5 mg PO Q2D 07/10/16 11/23/17 Oxygen 4 l IH AD 12/12/16 11/23/17 Furosemide [Lasix] 40 mg PO BID 08/11/17 11/23/17 Warfarin [Coumadin] 5 mg PO Q2D 10/23/17 11/23/17 Amiodarone [Cordarone] 200 mg PO DAILY 11/23/17 11/23/17 Fluticasone Propionate Nasal 1 spr NS BID 11/23/17 11/23/17 [Flonase] Previous Rx's Medication Instructions Recorded Albuterol Neb [Proventil Neb] 2.5 mg IH Q4HR PRN 14 Days 05/07/16 vial.neb Citalopram [CeleXA] 40 mg PO DAILY #20 tablet 05/28/16 Allergies Allergy/AdvReac Type Severity Reaction Status Date / Time No Known Drug Allergies Allergy See Verified 11/23/17 17:29 Comments Review of Systems: CONSTITUTIONAL: Fatigue No weight loss, fever, chills, weakness HEENT: Eyes: No visual changes. Ears, Nose, Throat: No hearing loss, difficulty talking or unable to swallow. SKIN: No rash or itching. CARDIOVASCULAR: No chest pain, chest pressure or chest discomfort. No palpitations or edema. RESPIRATORY: Shortness of breath GASTROINTESTINAL: No anorexia, nausea, vomiting or diarrhea. No abdominal pain or blood. GENITOURINARY: No burning on urination or hematuria. NEUROLOGICAL: No headache, dizziness, syncope, paralysis, ataxia, numbness or tingling in the extremities. No change in bowel or bladder control. MUSCULOSKELETAL: No muscle pain, back pain, joint pain or stiffness. Past Medical History - Past Medical History Medical history: Reports: atrial fibrillation, CHF, COPD, hyperlipidemia, hypertension, other Surgical history: Reports: pacemaker/AICD Psychiatric history: Reports: anxiety, depression - Social History Smoking Status: Former smoker Smokeless Tobacco Status: No Alcohol use: Reports: none Drug use: Reports: none Physical Exam General: Mild diaphoresis with mild tachypnea Head: Normocephalic Atraumatic Eyes: PERRL, EOMI ENT: Airway patent, no stridor Neck: supple, no meningismus Chest: Diminished bilaterally Cardiac: Regular rate and rhythm, no murmurs, rubs or gallops Abdomen: soft, nontender, nondistended; no guarding, rebound, or tenderness to percussion Musculoskeletal: Chronic leg changes bilaterally. No tenderness. Skin: No rash, normal skin tone Neuro: Alert and Oriented to person, place, and time; No focal deficit - General Limitations: no limitations General appearance: alert Course - Reevaluation(s) Reevaluation #1: Patient improved with BiPAP DuoNeb's and steroids. VBG pending. Patient will need admission for further treatment of COPD secondary to increased oxygen requirement. - Consultations Consultation #1: Discussed with hospitalist patient accepted for admission. Vital Signs Temperature 98 F 11/23/17 16:08 Pulse Rate 77 11/23/17 16:08 Respiratory Rate 28 11/23/17 16:08 Blood Pressure 126/68 11/23/17 16:08 O2 Sat by Pulse Oximetry 85 11/23/17 16:08 Temperature 98 F 11/23/17 16:08 Pulse Rate 77 11/23/17 16:08 Respiratory Rate 28 11/23/17 17:10 Blood Pressure 114/71 11/23/17 17:10 O2 Sat by Pulse Oximetry 93 11/23/17 17:10 Oxygen Delivery Oxygen Delivery Nasal Cannula Medical Decision Making - Medical Records Medical records reviewed: Yes I reviewed the patient's medical records. - Lab Data Lab results reviewed: Yes I reviewed the patient's lab results. Result diagrams: 11/23/17 16:25 11/23/17 16:25 Lab Results 11/23/17 11/23/17 11/23/17 Range/Units 16:25 16:25 16:59 WBC 10.0 (4.3-11.1) K/mcL RBC 4.29 (4.19-5.50) M/mcL Hgb 11.0 L (12.9-16.9) g/dL Hct 40.3 (37.5-50.1) % MCV 93.9 (83.0-100.0) fL MCH 25.6 L (28.0-33.3) pg MCHC 27.3 L (31.6-35.5) g/dL RDW 15.4 H (11.5-14.5) % Plt Count 196 (140-400) K/mcL MPV 9.6 (9.4-12.4) fL Immature Gran % 0.5 (0-4) % Seg Neutrophils % 81.9 % Lymphocytes % 8.8 % Monocytes % 7.6 % Eosinophils % 1.0 % Basophils % 0.2 % Neutrophils # 8.2 (1.6-8.9) K/mcL Lymphocytes # 0.9 (0.6-4.6) K/mcL Monocytes # 0.8 (0.0-1.3) K/mcL Eosinophils # 0.1 (0.0-0.6) K/mcL Basophils # 0.0 (0.0-0.2) K/mcL Platelet Estimate Normal (Normal) Polychromasia 1+ A (Not Present) Basophilic Stippling 1+ A (Not Present) PT 19.2 H (9.4-12.1) Seconds INR 1.8 Sodium 145 (136-145) mEq/L Potassium 4.1 (3.5-5.1) mEq/L Chloride 91 L (98-107) mEq/L Carbon Dioxide > 45 H* (23-29) mEq/L BUN 19 (6-20) mg/dL Creatinine 0.78 (0.70-1.30) mg/dL Est GFR ( Amer) > 60 (> 60) Est GFR (Non-Af Amer) > 60 (> 60) BUN/Creatinine Ratio 24 (6-26) Glucose 134 H (70-105) mg/dL Calculated Osmolality 304 H (280-300) Calcium 9.0 (8.6-10.3) mg/dL Total Bilirubin 0.6 (0.3-1.0) mg/dL AST 14 (13-39) Units/L ALT 10 (7-52) Units/L Alkaline Phosphatase 104 (34-104) Units/L Troponin I < 0.03 (< 0.04) ng/mL Serum Total Protein 6.4 (6.4-8.9) g/dL Albumin 3.4 L (3.5-5.7) g/dL Globulin 3.0 (2.4-3.5) g/dL Albumin/Globulin Ratio 1.1 (1.1-2.2) - Radiology Data Radiology results reviewed: Yes I reviewed the patient's radiology results. - EKG Data EKG #1 EKG attestation: Yes I reviewed and interpreted this EKG. EKG results narrative: EKG shows sinus rhythm with a ventricular rate of 75. NE Interval 188. QRS 105. QTC 424. Patient has no significant ST elevations or depressions. No previous EKG for comparison.
--- NOTE | 2017-11-23 17:33 | Emergency Department Note ---
Disposition Clinical Impression: Acute exacerbation of chronic obstructive airways disease Disposition: Admitted As Inpatient Condition: Good Referrals: NONE,PCP [Primary Care Provider] - General Adult HPI - General Chief complaint: ED Shortness of Breath/Dyspnea Stated complaint: RADU Time Seen by Provider: 11/23/17 16:15 Source: patient Limitations: no limitations - History of Present Illness Pain Scale: 7 - Related Data Home Medications Medication Instructions Recorded Confirmed Atorvastatin Calcium [Lipitor] 80 mg PO DAILY 05/04/15 11/23/17 Multivitamin/Ferrous Sulfate 1 tab PO DAILY 05/04/15 11/23/17 [One-Daily Lgwxi-Fmk-Einm Tab] Fluticasone/Salmeterol [Advair Hfa 1 puff IH BID 05/05/16 11/23/17 45-21 Mcg Inhaler] Potassium Chloride [Klor-Con 10] 20 meq PO DAILY 05/05/16 11/23/17 Warfarin [Coumadin] 7.5 mg PO Q2D 07/10/16 11/23/17 Oxygen 4 l IH AD 12/12/16 11/23/17 Furosemide [Lasix] 40 mg PO BID 08/11/17 11/23/17 Warfarin [Coumadin] 5 mg PO Q2D 10/23/17 11/23/17 Amiodarone [Cordarone] 200 mg PO DAILY 11/23/17 11/23/17 Fluticasone Propionate Nasal 1 spr NS BID 11/23/17 11/23/17 [Flonase] Previous Rx's Medication Instructions Recorded Albuterol Neb [Proventil Neb] 2.5 mg IH Q4HR PRN 14 Days 05/07/16 vial.neb Citalopram [CeleXA] 40 mg PO DAILY #20 tablet 05/28/16 Allergies Allergy/AdvReac Type Severity Reaction Status Date / Time No Known Drug Allergies Allergy See Verified 11/23/17 17:29 Comments Past Medical History - Past Medical History Medical history: Reports: atrial fibrillation, CHF, COPD, hyperlipidemia, hypertension, other Surgical history: Reports: pacemaker/AICD Psychiatric history: Reports: anxiety, depression - Social History Smoking Status: Former smoker Smokeless Tobacco Status: No Alcohol use: Reports: none Drug use: Reports: none Physical Exam - General Limitations: no limitations General appearance: alert Course Vital Signs Temperature 98 F 11/23/17 16:08 Pulse Rate 77 11/23/17 16:08 Respiratory Rate 28 11/23/17 16:08 Blood Pressure 126/68 11/23/17 16:08 O2 Sat by Pulse Oximetry 85 11/23/17 16:08 Temperature 98 F 11/23/17 16:08 Pulse Rate 77 11/23/17 16:08 Respiratory Rate 28 11/23/17 17:10 Blood Pressure 114/71 11/23/17 17:10 O2 Sat by Pulse Oximetry 93 11/23/17 17:10 Oxygen Delivery Oxygen Delivery Nasal Cannula Medical Decision Making - Lab Data Result diagrams: 11/23/17 16:25 11/23/17 16:25 Lab Results 11/23/17 11/23/17 11/23/17 Range/Units 16:25 16:25 16:59 WBC 10.0 (4.3-11.1) K/mcL RBC 4.29 (4.19-5.50) M/mcL Hgb 11.0 L (12.9-16.9) g/dL Hct 40.3 (37.5-50.1) % MCV 93.9 (83.0-100.0) fL MCH 25.6 L (28.0-33.3) pg MCHC 27.3 L (31.6-35.5) g/dL RDW 15.4 H (11.5-14.5) % Plt Count 196 (140-400) K/mcL MPV 9.6 (9.4-12.4) fL Immature Gran % 0.5 (0-4) % Seg Neutrophils % 81.9 % Lymphocytes % 8.8 % Monocytes % 7.6 % Eosinophils % 1.0 % Basophils % 0.2 % Neutrophils # 8.2 (1.6-8.9) K/mcL Lymphocytes # 0.9 (0.6-4.6) K/mcL Monocytes # 0.8 (0.0-1.3) K/mcL Eosinophils # 0.1 (0.0-0.6) K/mcL Basophils # 0.0 (0.0-0.2) K/mcL Platelet Estimate Normal (Normal) Polychromasia 1+ A (Not Present) Basophilic Stippling 1+ A (Not Present) PT 19.2 H (9.4-12.1) Seconds INR 1.8 Sodium 145 (136-145) mEq/L Potassium 4.1 (3.5-5.1) mEq/L Chloride 91 L (98-107) mEq/L Carbon Dioxide > 45 H* (23-29) mEq/L BUN 19 (6-20) mg/dL Creatinine 0.78 (0.70-1.30) mg/dL Est GFR ( Amer) > 60 (> 60) Est GFR (Non-Af Amer) > 60 (> 60) BUN/Creatinine Ratio 24 (6-26) Glucose 134 H (70-105) mg/dL Calculated Osmolality 304 H (280-300) Calcium 9.0 (8.6-10.3) mg/dL Total Bilirubin 0.6 (0.3-1.0) mg/dL AST 14 (13-39) Units/L ALT 10 (7-52) Units/L Alkaline Phosphatase 104 (34-104) Units/L Troponin I < 0.03 (< 0.04) ng/mL Serum Total Protein 6.4 (6.4-8.9) g/dL Albumin 3.4 L (3.5-5.7) g/dL Globulin 3.0 (2.4-3.5) g/dL Albumin/Globulin Ratio 1.1 (1.1-2.2) Attestation Statement - Attestation Attestation: I examined this patient and my medical decision-making was reviewed with the Resident Physician. I agree with the documented findings, disposition and treatment plan as described except to the extent set forth below. 56 year old male presents to the ED with complaints of RADU and has a history of COPD 2LNC and is hypoxic to the 87% on 2LNC, yandy states that he has been intubated in the past for his hypoxia and hypercapnia. He appears to be retaining according to CMP. We will place yandy on bipap and admit to medicnie for COPD excerbation/hypercaprnia
[2017-11-23 17:53] LABS: VBG HCO3 56 mEq/L (21-27); VBG PCO2 102 mmHg (41-51); VBG PH 7.35 pH Units (7.32-7.42); VBG PO2 134 mmHg (25-50)
[2017-11-23] MEDS ORDERED: Furosemide 40 MG/4 ML VIAL IVP ONE (18:04)
--- NOTE | 2017-11-23 21:22 | Internal Med History&Physical ---
Date of Encounter: 11/23/17 Time of Encounter: 08:00 Internal Medicine - H&P: HPI Chief complaint: SOB History of present illness: Mr. Rubalcava is a 56 year old male Patient presents with past mental history of atrial fibrillation on Coumadin, CHF, COPD, hyperlipidemia, hypertension and pacemaker and was recently admitted for COPD exacerbation and Discharge 3 weeks ago who presented with progressive worsening of SOB and increased O2 requirement. He was found to be hypoxic in the Er and was started on BiPAP of 80 %. Chest x ray revealed a possible CHF component and received IV Lasix and was admitted for further evaluation and management Past Med Surg Social Fam HX - Past Medical History Medical history: atrial fibrillation, CHF, COPD, hyperlipidemia, hypertension, other Psychiatric history: anxiety, depression - Past Surgical History Surgical History: pacemaker/AICD - Social History Smoking Status: Former smoker Smokeless Tobacco Status: No Alcohol use: none Drug use: none - Family History Mother Family Member Ethnicity: Non- Living Status: Still Living Hx Family Cardiac Disorders: No Hx Family Respiratory Disorders: No Hx Family Cancer: Yes Hx Family GI Disorders: No Hx Family Endocrine Disorder: No Father Adopted: No Family Member Ethnicity: Non- Living Status: Hx Family Cancer: Yes Hx Family GI Disorders: No Internal Medicine - H&P: Meds Atorvastatin Calcium [Lipitor] 80 mg PO DAILY 05/04/15 [History] Multivitamin/Ferrous Sulfate [One-Daily Mzhne-Ysz-Fthe Tab] 1 tab PO DAILY 05/04 [History] Fluticasone/Salmeterol [Advair Hfa 45-21 Mcg Inhaler] 1 puff IH BID 05/05/16 [ History] Potassium Chloride [Klor-Con 10] 20 meq PO DAILY 05/05/16 [History] Albuterol Neb [Proventil Neb] 2.5 mg IH Q4HR PRN 14 Days vial.neb 05/07/16 [Rx] Citalopram [CeleXA] 40 mg PO DAILY #20 tablet 05/28/16 [Rx] Warfarin [Coumadin] 7.5 mg PO Q2D 07/10/16 [History] Oxygen 4 l IH AD 12/12/16 [History] Furosemide [Lasix] 40 mg PO BID 08/11/17 [History] Warfarin [Coumadin] 5 mg PO Q2D 10/23/17 [History] Amiodarone [Cordarone] 200 mg PO DAILY 11/23/17 [History] Fluticasone Propionate Nasal [Flonase] 1 spr NS BID 11/23/17 [History] 3 Allergy/AdvReac Type Severity Reaction Status Date / Time No Known Drug Allergies Allergy See Verified 11/23/17 17:29 Comments All Systems PM: A 10-system review of systems was performed and is negative for pertinent findings except as documented above in the HPI. - Constitutional Constitutional: no chills, no fever(s), no night sweats - Cardiovascular Cardiovascular ROS IM: dyspnea, no chest pain, no diaphoresis, no lightheadedness, no palpitations, no syncope - Respiratory Respiratory: cough, dyspnea, wheezing, no excessive phlegm production - Gastrointestinal Gastrointestinal: no abdominal pain, no diarrhea, no hematemesis, no hematochezia, no melena, no nausea, no vomiting - Neurological Neurological ROS: no confusion, no convulsions, no focal weakness, no numbness, no tingling, no tremor(s) - Constitutional Vitals: Temp Pulse Resp BP Pulse Ox 97.9 F 78 18 131/93 92 11/23/17 21:10 11/23/17 21:10 11/23/17 21:10 11/23/17 21:10 11/23/17 21:10 General appearance: Present: A&O X 3 - Head Head exam: Present: atraumatic, normocephalic - Neck Neck exam general surgery: Present: supple, trachea midline. Absent: lymphadenopathy - Respiratory Respiratory exam: Present: rhonchi, wheezes. Absent: accessory muscle use, rales - Cardiovascular Cardiovascular exam: Present: RRR, +S1, +S2. Absent: diastolic murmur, gallop, rubs, systolic murmur - GI/Abdominal GI/Abdominal exam: Present: normal bowel sounds, soft, no peritoneal signs. Absent: distended, tenderness - Extremities Exam Extremities exam: Present: warm, radial pulses palpable and symmetrical. Absent : calf tenderness, cyanotic, pedal edema - Neurological Exam Neurological exam: Present: CN II-XII intact, oriented X3, no focal deficits. Absent: pronater drift, facial droop, speech deficit Internal Med - H&P Results - Labs CBC & Chem 7: 11/24/17 04:49 11/24/17 04:49 - Assessment and plan (1) Acute exacerbation of chronic obstructive airways disease Current Visit: Yes Status: Acute Assessment and plan: SOB due to * COPD exacerbation caused by URTI, allergen exposure, medication nonocompliance *Bronchitis *Pneumonia - no infiltrate on CXR PLAN: - Aerosols q 4 hr and PRN SOB - Solu-medrol 40 mg IV q 6 hr - O2 to keep SpO2 higher than 92% (SpO higher than 95% if CAD) - CBCD, BMP in AM - Sputum Gram stain, C+S - Robitussin 10 cc PO q 4 hr - Tylenol 650 mg PO q 4-6 hr PRN pain/fever - Heparin 5000 U SQ BID - Home meds - check the list and restart - ABs (2) CHF (congestive heart failure) Current Visit: No Status: Chronic Assessment and plan: - SOB due to *CHF exacerbation due to PLAN: - Lasix 40 mg IV BID - Aerosols UD q 4 hr - UA - 2D Echo - CBCD, BMP in AM - Fasting lipids - Tylenol 650 mg PO q 4-6 hr PRN pain - Home meds Qualifiers: Heart failure type: unspecified Heart failure chronicity: acute on chronic Qualified Code(s): I50.9 - Heart failure, unspecified (3) HLD (hyperlipidemia) Current Visit: No Status: Chronic Assessment and plan: we will continue home medication and may understand and chemotherapy and start FLP Qualifiers: Hyperlipidemia type: unspecified Qualified Code(s): E78.5 - Hyperlipidemia , unspecified (4) Acute respiratory failure with hypercapnia Current Visit: No Status: Acute Assessment and plan: we will continue by BIPAB and consult pulmonary (5) Morbid obesity due to excess calories Current Visit: No Status: Chronic (6) Depression Current Visit: No Status: Chronic Qualifiers: Depression Type: unspecified Qualified Code(s): F32.9 - Major depressive disorder, single episode, unspecified (7) DVT prophylaxis Current Visit: No Status: Acute Assessment and plan: SC Heparin (8) Artificial pacemaker Current Visit: No Status: Acute - Time Spent With Patient Total time spent is greater than 50% in coordination of care (as documented) at patient's floor/unit and/or counseling patient:
[2017-11-23] MEDS ORDERED: Albuterol 2.5 MG/3 ML NEBULIZER IH PRN (21:24)
[2017-11-23] MEDS ORDERED: Naloxone 0.4 MG/ML INJ IVP PRN (22:32)
[2017-11-23] MEDS: Ipratropium/Albuterol Neb 3 ML IH SCH (23:08)
[2017-11-24] MEDS: MethylPREDNISolone 40 MG/ML VIAL IVP SCH ×4 (01:05→19:13)
[2017-11-24 04:19] LABS: Bilirubin,Urine Negative (Negative); Blood,Urine Moderate (Negative); Glucose,Urine (UA) Normal (Normal); Ketones,Urine Negative (Negative); Leukocyte Esterase,Urine Negative (Negative); Nitrite,Urine Negative (Negative); Protein,Urine 30 mg/dL (Neg-Trace); Specific Gravity,Urine 1.025 (1.010-1.025); Urobilinogen,Urine Normal (Normal)
[2017-11-24 04:20] LABS: Clarity,Urine Hazy (Clear); Color,Urine Red (Yellow)
[2017-11-24] MEDS: Ipratropium/Albuterol Neb 3 ML IH SCH ×4 (04:21→22:37)
[2017-11-24 05:35] LABS: Basophils % 0.1 %; Mean Platelet Volume 9.9 fL (9.4-12.4); Monocytes % 1.4 %
[2017-11-24 05:36] LABS: Hemoglobin 11.3 g/dL (12.9-16.9); Immature Granulocytes % 0.9 % (0-4); Lymphocytes # 0.5 K/mcL (0.6-4.6); Lymphocytes % 5.5 %; Mean Corpuscular HGB Conc 26.9 g/dL (31.6-35.5); Mean Corpuscular Hemoglobin 25.2 pg (28.0-33.3); Mean Corpuscular Volume 93.5 fL (83.0-100.0); Monocytes # 0.1 K/mcL (0.0-1.3); Neutrophils # 8.4 K/mcL (1.6-8.9); Platelet Count 183 K/mcL (140-400); Red Blood Count 4.49 M/mcL (4.19-5.50); Red Cell Distribution Width 15.2 % (11.5-14.5); Segmented Neutrophils % 92.1 %
[2017-11-24 05:40] LABS: INR 1.8; Prothrombin Time 19.5 Seconds (9.4-12.1)
[2017-11-24 05:42] LABS: Activated Partial Thrombo Time 29.5 Seconds (26.0-36.0)
[2017-11-24 05:58] LABS: Hypochromasia Present (Not Present); Platelet Estimate Normal (Normal)
[2017-11-24 06:08] LABS: Alanine Aminotransferase 9 Units/L (7-52); Albumin 3.4 g/dL (3.5-5.7); Albumin/Globulin Ratio 1.1 (1.1-2.2); Alkaline Phosphatase 100 Units/L (34-104); Aspartate Amino Transferase 13 Units/L (13-39); BUN/Creatinine Ratio 26 (6-26); Bilirubin,Total 0.5 mg/dL (0.3-1.0); Blood Urea Nitrogen 19 mg/dL (6-20); Calcium 9.1 mg/dL (8.6-10.3); Carbon Dioxide > 45 mEq/L (23-29); Chloride 90 mEq/L (98-107); Cholesterol 114 mg/dL (< 200); Globulin 3.2 g/dL (2.4-3.5); Glucose 161 mg/dL (70-105); HDL Cholesterol 38 mg/dL (40-59); LDL Cholesterol,Calculated 63 mg/dL (0-99); Magnesium 2.3 mg/dL (1.6-2.6); Osmolality,Calculated 304 (280-300); Phosphorous 4.1 mg/dL (2.7-4.5); Potassium 4.9 mEq/L (3.5-5.1); Sodium 144 mEq/L (136-145); Total Protein 6.6 g/dL (6.4-8.9); Triglycerides 66 mg/dL (< 150); eGFR For African Americans > 60 (> 60); eGFR For Non-African Americans > 60 (> 60)
[2017-11-24] MEDS: *HR* Heparin 5,000 UNIT/ML VIAL SQ SCH ×2 (06:14→19:13)
[2017-11-24] MEDS ORDERED: Furosemide 40 MG TABLET PO SCH (09:00)
[2017-11-24] MEDS ORDERED: Furosemide 40 MG/4 ML VIAL IVP SCH ×2 (09:00→17:00)
--- NOTE | 2017-11-24 09:28 | Internal Med Progress Note ---
<Nicolas Smiley - Last Filed: 11/24/17 13:29> Date of Encounter: 11/24/17 Time of Encounter: 10:30 - Assessment and plan (1) Acute respiratory failure with hypercapnia Current Visit: Yes Status: Acute Assessment and plan: Respiratory failure with hypoxia and hypercapnia on admission Bicarb has been elevated on BMP, VBG shows pCO2 56 Likely the patient is a chronic CO2 retainer Ordered D-Dimer for possible PE which is negative we will continue by BIPAB and consult pulmonary (2) Acute exacerbation of chronic obstructive airways disease Current Visit: Yes Status: Acute Assessment and plan: SOB due to COPD exacerbation PLAN: - Aerosols q 4 hr and PRN SOB - Solu-medrol 40 mg IV q 6 hr - O2 to keep SpO2 higher than 92% - CBCD, BMP in AM - Sputum Gram stain, C+S pending - Robitussin 10 cc PO q 4 hr - Tylenol 650 mg PO q 4-6 hr PRN pain/fever - Levaquin Day 2 (3) CHF (congestive heart failure) Current Visit: No Status: Chronic Assessment and plan: History of Diastolic heart failure PLAN: - Lasix 40 mg IV BID - Aerosols UD q 4 hr - 2D Echo pending - Fasting lipids Qualifiers: Heart failure type: unspecified Heart failure chronicity: acute on chronic Qualified Code(s): I50.9 - Heart failure, unspecified (4) HLD (hyperlipidemia) Current Visit: No Status: Chronic Assessment and plan: we will continue home medication and may understand and chemotherapy and start FLP Qualifiers: Hyperlipidemia type: unspecified Qualified Code(s): E78.5 - Hyperlipidemia , unspecified (5) Morbid obesity due to excess calories Current Visit: Yes Status: Chronic (6) DVT prophylaxis Current Visit: No Status: Acute Assessment and plan: SC Heparin (7) Depression Current Visit: No Status: Chronic Assessment and plan: Continue home meds Qualifiers: Depression Type: unspecified Qualified Code(s): F32.9 - Major depressive disorder, single episode, unspecified (8) Artificial pacemaker Current Visit: No Status: Acute Assessment and plan: Stable - Time Spent With Patient Total time spent is greater than 50% in coordination of care (as documented) at patient's floor/unit and/or counseling patient: - Subjective Interval history: The patient is seen and examined that side. He is currently on BiPAP at time of examination. He says that the BiPAP has made him much more comfortable. Overnight any attempts to remove BiPAP resulted in prompt desaturation. He does say that he has some chest pain on inspiration which has improved compared to previous - Constitutional Vitals: Temp Pulse Resp BP Pulse Ox 97.6 F 73 18 146/88 94 11/24/17 06:54 11/24/17 06:54 11/24/17 06:54 11/24/17 06:54 11/24/17 06:54 General appearance: Present: A&O X 3 Exam: Gen: Vitals noted. No acute distress. Morbidly obese. Currently on BiPAP HEENT: Normocephalic, atraumatic Neck: Supple. No adenopathy. Cardiac: RRR, no murmur, +S1/S2 Pulmonary: Poor inspiratory effort, minimal wheezes noted on exam Abdomen: soft, nontender, BS noted, no guarding Back: Nontender throughout. MSK: ROM intact, no joint swelling noted Extremities: 1-2 b/l LE edema, nontender calf, no cyanosis or clubbing Neuro: A&Ox3, moves all extremities, no focal deficits Psych: Appropriate mood and behavior Internal Medicine: Result - Labs CBC & Chem 7: 11/24/17 04:49 11/24/17 04:49 Labs: Short CBC 11/24/17 Range/Units 04:49 WBC 9.1 (4.3-11.1) K/mcL Hgb 11.3 L (12.9-16.9) g/dL Hct 42.0 (37.5-50.1) % Plt Count 183 (140-400) K/mcL Neutrophils # 8.4 (1.6-8.9) K/mcL BMP 11/24/17 04:49 Sodium 144 Potassium 4.9 Chloride 90 L Carbon Dioxide > 45 H* BUN 19 Creatinine 0.73 Glucose 161 H Calcium 9.1 Cardiac Enzymes 11/23/17 11/24/17 Range/Units 23:03 04:49 Troponin I < 0.03 < 0.03 (< 0.04) ng/mL Liver Function 11/24/17 Range/Units 04:49 Total Bilirubin 0.5 (0.3-1.0) mg/dL AST 13 (13-39) Units/L ALT 9 (7-52) Units/L Alkaline Phosphatase 100 (34-104) Units/L Albumin 3.4 L (3.5-5.7) g/dL Urine 11/24/17 Range/Units 03:34 Urine Color Red A (Yellow) Urine Clarity Hazy (Clear) Urine pH 7.0 (5.0-8.0) pH Units Ur Specific Powell 1.025 (1.010-1.025) Urine Protein 30 H (Neg-Trace) mg/dL Urine Glucose (UA) Normal (Normal) mg/dL - ABG Interpretation ABG results: PT/INR, D-dimer PT 19.5 Seconds (9.4-12.1) H 11/24/17 04:49 Consult Discharge Plan - Plan Referrals: Chip Cornejo MD [Partnered Physician] - <Michelet Vang H - Last Filed: 11/24/17 14:53> Date of Encounter: 11/24/17 - Assessment and plan (1) Acute exacerbation of chronic obstructive airways disease Current Visit: Yes Status: Acute (2) CHF (congestive heart failure) Current Visit: No Status: Chronic Qualifiers: Heart failure type: unspecified Heart failure chronicity: acute on chronic Qualified Code(s): I50.9 - Heart failure, unspecified (3) HLD (hyperlipidemia) Current Visit: No Status: Chronic Qualifiers: Hyperlipidemia type: unspecified Qualified Code(s): E78.5 - Hyperlipidemia , unspecified (4) Acute respiratory failure with hypercapnia Current Visit: Yes Status: Acute (5) Morbid obesity due to excess calories Current Visit: Yes Status: Chronic (6) DVT prophylaxis Current Visit: No Status: Acute (7) Depression Current Visit: No Status: Chronic Qualifiers: Depression Type: unspecified Qualified Code(s): F32.9 - Major depressive disorder, single episode, unspecified (8) Artificial pacemaker Current Visit: No Status: Acute - Time Spent With Patient Total time spent is greater than 50% in coordination of care (as documented) at patient's floor/unit and/or counseling patient: - Constitutional Vitals: Temp Pulse Resp BP Pulse Ox 98.5 F 78 18 139/75 94 11/24/17 11:12 11/24/17 11:12 11/24/17 11:15 11/24/17 11:12 11/24/17 14:19 Internal Medicine: Result - Labs CBC & Chem 7: 11/24/17 04:49 11/24/17 04:49 Labs: Short CBC 11/24/17 Range/Units 04:49 WBC 9.1 (4.3-11.1) K/mcL Hgb 11.3 L (12.9-16.9) g/dL Hct 42.0 (37.5-50.1) % Plt Count 183 (140-400) K/mcL Neutrophils # 8.4 (1.6-8.9) K/mcL BMP 11/24/17 04:49 Sodium 144 Potassium 4.9 Chloride 90 L Carbon Dioxide > 45 H* BUN 19 Creatinine 0.73 Glucose 161 H Calcium 9.1 Cardiac Enzymes 11/23/17 11/24/17 11/24/17 Range/Units 23:03 04:49 10:41 Troponin I < 0.03 < 0.03 < 0.03 (< 0.04) ng/mL Liver Function 11/24/17 Range/Units 04:49 Total Bilirubin 0.5 (0.3-1.0) mg/dL AST 13 (13-39) Units/L ALT 9 (7-52) Units/L Alkaline Phosphatase 100 (34-104) Units/L Albumin 3.4 L (3.5-5.7) g/dL Urine 11/24/17 Range/Units 03:34 Urine Color Red A (Yellow) Urine Clarity Hazy (Clear) Urine pH 7.0 (5.0-8.0) pH Units Ur Specific Powell 1.025 (1.010-1.025) Urine Protein 30 H (Neg-Trace) mg/dL Urine Glucose (UA) Normal (Normal) mg/dL - ABG Interpretation ABG results: PT/INR, D-dimer PT 19.5 Seconds (9.4-12.1) H 11/24/17 04:49 D-Dimer < 215 ng/mLFEU (0-500) 11/24/17 12:29 - Attending Attestation Acute on chronic hypoxic hypercapnic respiratory failure secondary to acute COPD exacerbation due to acute bacterial bronchitis in combination to acute diastolic CHF exacerbation Continue Solu-Medrol, Levaquin day #2, IV Lasix Echocardiogram pending Morbid obesity I examined this patient and my medical decision-making was reviewed with the Resident Physician. I agree with the documented findings, disposition and treatment plan as described except to the extent set forth below.
[2017-11-24] MEDS: Budesonide/Formoterol 80/4.5 MDI IH SCH ×2 (11:15→22:36)
[2017-11-24] MEDS: Multivit/Ca/Min/Fe/FA 1 TAB TABLET PO SCH (11:47)
[2017-11-24] MEDS: *HR* Amiodarone 200 MG TABLET PO SCH (11:47)
[2017-11-24] MEDS: Fluticasone Propionate Nasal 50 MCG/SPRAY BOTTLE NS SCH ×2 (11:47→22:15)
[2017-11-24] MEDS ORDERED: Perflutren Lipid Microsphere 1.3 ML in 0.9 % Sodium Chloride 8.7 ML IVP ONE (15:06)
--- NOTE | 2017-11-24 16:18 | Pulmonology Consult Note ---
Date of Encounter: 11/24/17 Time of Encounter: 11:00 Assessment and Plan (1) Acute exacerbation of chronic obstructive airways disease Current Visit: Yes Status: Suspected Patient is being treated appropriately Recommend: Systemic steroid daily with plan to taper over 2 weeks Continue current antibiotic is acceptable Schedule DuoNeb's while inpatient every 6 hours Patient should have ongoing nebulizer with JASS/LORELEI solution to be used q6 Hours Recommend starting Symbicort 160/4.52 puffs twice a day Outpatient pulmonary follow-up 2-4 weeks at the time of discharge for further evaluation (2) Hypoventilation associated with obesity syndrome Current Visit: No Status: Chronic Patient has been having problem with his noninvasive ventilation which I feel this is playing a major role for his recurrent hospitalization and discussed with primary team for criminal justice social worker to help patient regarding his noninvasive ventilation and also he is liking current BiPAP mask which can be sent home with him. Also patient is interested to continue with [facility] as outpatient which hopefully his insurance will be compatible to continue his outpatient care to lower her risk of his frequent hospitalization. (3) Morbid obesity due to excess calories Current Visit: Yes Status: Chronic Weight loss and even gastric bypass surgery has been discussed with patient as outpatient (4) Acute on chronic respiratory failure with hypercapnia Current Visit: No Status: Acute Treatment of COPD exacerbation as well as noninvasive ventilation History of Present Illness Consult date: 11/24/17 Requesting physician: Michelet Vang Reason for consult: dyspnea Chief complaint: Shortness of breath History of present illness: This is 56-year-old male who is known to me and unfortunately he has multiple comorbidities with cardiopulmonary disease. Patient was admitted for COPD exacerbation and he has always to hypoventilation syndrome and unfortunately he has not been compliant with his noninvasive ventilation. Patient presented with progressive worsening of shortness of breath and requiring more oxygen than his baseline. Stated he is been having problems with his noninvasive ventilation and he is not satisfied with his DME company. Patient had chest x-ray which was suggestive of congestive heart failure and patient denies any chest pain but he has some productive cough and he started feeling better on current treatment. Patient also has wheezing and generalized fatigue. He denies any hemoptysis. Past Med Surg Social Fam HX - Past Medical History Medical history: atrial fibrillation, CHF, COPD, hyperlipidemia, hypertension, other Psychiatric history: anxiety, depression - Past Surgical History Surgical History: pacemaker/AICD - Social History Smoking Status: Former smoker Smokeless Tobacco Status: No Alcohol use: none Drug use: none - Family History Mother Family Member Ethnicity: Non- Living Status: Still Living Hx Family Cardiac Disorders: No Hx Family Respiratory Disorders: No Hx Family Cancer: Yes Hx Family GI Disorders: No Hx Family Endocrine Disorder: No Father Adopted: No Family Member Ethnicity: Non- Living Status: Hx Family Cancer: Yes Hx Family GI Disorders: No Medications and Allergies Atorvastatin Calcium [Lipitor] 80 mg PO DAILY 05/04/15 [History] Multivitamin/Ferrous Sulfate [One-Daily Ukmbj-Ymw-Sibd Tab] 1 tab PO DAILY 05/04 [History] Fluticasone/Salmeterol [Advair Hfa 45-21 Mcg Inhaler] 1 puff IH BID 05/05/16 [ History] Potassium Chloride [Klor-Con 10] 20 meq PO DAILY 05/05/16 [History] Albuterol Neb [Proventil Neb] 2.5 mg IH Q4HR PRN 14 Days vial.neb 05/07/16 [Rx] Citalopram [CeleXA] 40 mg PO DAILY #20 tablet 05/28/16 [Rx] Warfarin [Coumadin] 7.5 mg PO Q2D 07/10/16 [History] Oxygen 4 l IH AD 12/12/16 [History] Furosemide [Lasix] 40 mg PO BID 08/11/17 [History] Warfarin [Coumadin] 5 mg PO Q2D 10/23/17 [History] Amiodarone [Cordarone] 200 mg PO DAILY 11/23/17 [History] Fluticasone Propionate Nasal [Flonase] 1 spr NS BID 11/23/17 [History] 3 Allergy/AdvReac Type Severity Reaction Status Date / Time No Known Drug Allergies Allergy See Verified 11/23/17 17:29 Comments All Systems: The remainder of the systems were reviewed and are negative Physical Examination Vital Signs: Vital Signs, Last 4 Hours Temp Pulse Resp BP Pulse Ox 11/24/17 15:42 14 150/89 94 11/24/17 15:15 98.2 F 69 16 150/89 94 11/24/17 14:19 94 General appearance: appears uncomfortable Eyes: nonicteric ENT: oropharynx dry Mallampati (class): 4 Neck: supple, JVD Effort: mildly labored Inspection: other (Morbidly obese) Auscultation: bilateral: diminished breath sounds Cardiovascular: irregular rhythm Gastrointestinal: normoactive bowel sounds Extremities: cyanosis, edema normal mental status, non-focal exam depressed Ventilator Settings Ventilator Settings: BiPAP Results - Laboratory Findings CBC and BMP: 11/24/17 04:49 11/24/17 04:49 PT/INR, D-dimer PT 19.5 Seconds (9.4-12.1) H 11/24/17 04:49 D-Dimer < 215 ng/mLFEU (0-500) 11/24/17 12:29 Abnormal lab findings: Abnormal lab results Hgb 11.3 g/dL (12.9-16.9) L 11/24/17 04:49 MCH 25.2 pg (28.0-33.3) L 11/24/17 04:49 MCHC 26.9 g/dL (31.6-35.5) L 11/24/17 04:49 RDW 15.2 % (11.5-14.5) H 11/24/17 04:49 Lymphocytes # 0.5 K/mcL (0.6-4.6) L 11/24/17 04:49 Polychromasia 1+ (Not Present) A 11/23/17 16:25 Hypochromasia Present (Not Present) A 11/24/17 04:49 Basophilic Stippling 1+ (Not Present) A 11/23/17 16:25 PT 19.5 Seconds (9.4-12.1) H 11/24/17 04:49 VBG pCO2 102 mmHg (41-51) H* 11/23/17 17:44 VBG pO2 134 mmHg (25-50) H 11/23/17 17:44 VBG HCO3 56 mEq/L (21-27) H 11/23/17 17:44 Chloride 90 mEq/L (98-107) L 11/24/17 04:49 Carbon Dioxide > 45 mEq/L (23-29) H* 11/24/17 04:49 Glucose 161 mg/dL (70-105) H 11/24/17 04:49 Calculated Osmolality 304 (280-300) H 11/24/17 04:49 Albumin 3.4 g/dL (3.5-5.7) L 11/24/17 04:49 HDL Cholesterol 38 mg/dL (40-59) L 11/24/17 04:49 Ur Specimen Adequacy See below A 11/24/17 03:34 Urine Color Red (Yellow) A 11/24/17 03:34 Urine Protein 30 mg/dL (Neg-Trace) H 11/24/17 03:34 Urine Blood Moderate (Negative) H 11/24/17 03:34 - Clinical Findings Intake & Output: Intake & Output 11/24/17 11/24/17 11/24/17 07:59 15:59 23:59 Intake Total 240 / 240 840 / 840 Output Total 650 / 650 1150 / 1150 Balance -410 / -410 -310 / -310 Weight 202.2 kg 202.2 kg Consult Discharge Plan - Plan Referrals: Chip Cornejo MD [Partnered Physician] -
[2017-11-24] MEDS ORDERED: *HR* Warfarin 7.5 MG TABLET PO ONE (18:00)
[2017-11-24] MEDS ORDERED: Warfarin perPT PO PRN (18:00)
[2017-11-24] MEDS: Levofloxacin 500 MG/100 ML 500 MG/100 ML BAG IVPB SCH (19:13)
[2017-11-25] MEDS: MethylPREDNISolone 40 MG/ML VIAL IVP SCH ×5 (01:03→22:03)
[2017-11-25] MEDS: Ipratropium/Albuterol Neb 3 ML IH SCH ×4 (04:03→22:43)
[2017-11-25] MEDS: *HR* Heparin 5,000 UNIT/ML VIAL SQ SCH (05:12)
[2017-11-25 07:56] LABS: Basophils % 0.1 %; Mean Corpuscular Volume 92.4 fL (83.0-100.0)
[2017-11-25 07:57] LABS: Hematocrit 42.4 % (37.5-50.1); Hemoglobin 11.4 g/dL (12.9-16.9); Immature Granulocytes % 0.5 % (0-4); Lymphocytes # 0.5 K/mcL (0.6-4.6); Lymphocytes % 3.9 %; Mean Corpuscular HGB Conc 26.9 g/dL (31.6-35.5); Mean Corpuscular Hemoglobin 24.8 pg (28.0-33.3); Mean Platelet Volume 9.9 fL (9.4-12.4); Monocytes # 0.4 K/mcL (0.0-1.3); Monocytes % 3.4 %; Neutrophils # 11.7 K/mcL (1.6-8.9); Platelet Count 219 K/mcL (140-400); Red Blood Count 4.59 M/mcL (4.19-5.50); Red Cell Distribution Width 15.2 % (11.5-14.5); Segmented Neutrophils % 92.1 %
[2017-11-25 08:10] LABS: Prothrombin Time 21.3 Seconds (9.4-12.1)
--- NOTE | 2017-11-25 08:10 | Electrocardiograph Report ---
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
[2017-11-25 09:12] LABS: Platelet Estimate Normal (Normal)
[2017-11-25 09:13] LABS: Anisocytosis 1+ (Not Present)
[2017-11-25 09:23] LABS: eGFR For African Americans > 60 (> 60); eGFR For Non-African Americans > 60 (> 60)
[2017-11-25 09:26] LABS: Alanine Aminotransferase 10 Units/L (7-52); Albumin 3.4 g/dL (3.5-5.7); Albumin/Globulin Ratio 1.1 (1.1-2.2); Alkaline Phosphatase 92 Units/L (34-104); Aspartate Amino Transferase 14 Units/L (13-39); BUN/Creatinine Ratio 33 (6-26); Bilirubin,Total 0.4 mg/dL (0.3-1.0); Blood Urea Nitrogen 24 mg/dL (6-20); Calcium 9.2 mg/dL (8.6-10.3); Carbon Dioxide > 45 mEq/L (23-29); Chloride 88 mEq/L (98-107); Globulin 3.2 g/dL (2.4-3.5); Glucose 152 mg/dL (70-105); Osmolality,Calculated 301 (280-300); Potassium 4.9 mEq/L (3.5-5.1); Sodium 142 mEq/L (136-145); Total Protein 6.6 g/dL (6.4-8.9)
[2017-11-25] MEDS: Budesonide/Formoterol 80/4.5 MDI IH SCH ×2 (10:43→22:43)
--- NOTE | 2017-11-25 10:43 | Discharge Summary ---
<Nicolas Smiley - Last Filed: 11/26/17 09:46> - NOTES TO OUTPATIENT PROVIDER Notes to Outpatient Provider: The patient was admitted to [facility] with severe COPD exacerbation secondary to noncompliance with medication and BiPAP. He is a chronic CO2 retainer, and when he uses his BiPAP it is helpful for him. He was treated with Levaquin and steroids which were helpful. We will discharge him on a long taper of prednisone and finish Levaquin as by mouth medication outpatient. He also started on Symbicort per pulmonology. Recommend close follow-up. Orders not resulted at time of discharge: Pending orders 11/26/17 04:00 PT/INR [Prothrombin Time INR] [COAG] AM 0400 11/27/17 04:00 PT/INR [Prothrombin Time INR] [COAG] AM 0400 11/28/17 04:00 PT/INR [Prothrombin Time INR] [COAG] AM 0400 Date of Encounter: 11/26/17 Time of Encounter: 09:25 - Discharge Diagnosis (1) Acute respiratory failure with hypercapnia Priority: Primary Status: Acute Assessment and Plan: Respiratory failure with hypoxia and hypercapnia on admission Bicarb has been elevated on BMP, VBG shows pCO2 56 Likely the patient is a chronic CO2 retainer Ordered D-Dimer for possible PE which is negative Per pulmonology Continue BiPAP Taper steroids over two weeks at discharge Continue current antibiotic regimen Follow-up 2-4wks in pulmonology clinic Patient is at high risk for readmission due to severe lung disease and poor compliance with positive airway pressure devices/medications (2) Acute exacerbation of chronic obstructive airways disease Priority: Secondary Status: Suspected Assessment and Plan: SOB due to COPD exacerbation Levaquin Day 4, Continue 7 day course Taper Steroids over 2 weeks Symbicort daily BID Duonebs as needed (3) CHF (congestive heart failure) Priority: Secondary Status: Chronic Assessment and Plan: History of Diastolic heart failure PLAN: Continue home Lasix dose (40mg PO BID) Continue Statin + Amiodarone Qualifiers: Heart failure type: unspecified Heart failure chronicity: acute on chronic Qualified Code(s): I50.9 - Heart failure, unspecified (4) HLD (hyperlipidemia) Priority: Secondary Status: Chronic Assessment and Plan: we will continue home medication Qualifiers: Hyperlipidemia type: unspecified Qualified Code(s): E78.5 - Hyperlipidemia , unspecified (5) Morbid obesity due to excess calories Priority: Secondary Status: Chronic (6) Depression Priority: Secondary Status: Chronic Assessment and Plan: Continue home meds Qualifiers: Depression Type: unspecified Qualified Code(s): F32.9 - Major depressive disorder, single episode, unspecified (7) Artificial pacemaker Priority: Secondary Status: Acute Assessment and Plan: Stable Hospital course: Mr. Rubalcava is a 56 year old male with medical history of atrial fibrillation on Coumadin, CHF, COPD, hyperlipidemia, hypertension and pacemaker who recently was admitted for COPD exacerbation and was discharged approximately 3 weeks ago. Since that time has developed progressively worsening shortness of breath and increased O2 requirements. He is admitted to the hospital with evidence of COPD exacerbation and some pulmonary edema suggestive of CHF. We started the patient on steroids, antibiotics and also diuresed him. The patient continued to improve over time, and he is now medically stable for discharge. He will be given the materials necessary for continued use of BiPAP. For more detailed information regarding hospital course and discharge planning please see individual assessments. Discharge discussed with: patient, nurse, social work, case management - Time Spent with Patient Total time spent providing and/or coordinating discharge services: Greater than 30 minutes - Discharge Medications Prescriptions: Budesonide/Formoterol 80/4.5 [Symbicort 80/4.5] 2 puff IH BIDRESP 30 Days #1 inhaler Ipratropium/Albuterol Neb [Duoneb] 3 ml IH QIDR 30 Days #1 levoFLOXacin [Levaquin] 750 mg PO DAILY #5 tablet predniSONE [PredniSONE] 10 mg PO DAILY #35 tablet Home Medications: Atorvastatin Calcium [Lipitor] 80 mg PO DAILY 05/04/15 [History] Multivitamin/Ferrous Sulfate [One-Daily Egpcd-Sdk-Iffo Tab] 1 tab PO DAILY 05/04 [History] Potassium Chloride [Klor-Con 10] 20 meq PO DAILY 05/05/16 [History] Albuterol Neb [Proventil Neb] 2.5 mg IH Q4HR PRN 14 Days vial.neb 05/07/16 [Rx] Citalopram [CeleXA] 40 mg PO DAILY #20 tablet 05/28/16 [Rx] Warfarin [Coumadin] 7.5 mg PO Q2D 07/10/16 [History] Oxygen 4 l IH AD 12/12/16 [History] Furosemide [Lasix] 40 mg PO BID 08/11/17 [History] Warfarin [Coumadin] 5 mg PO Q2D 10/23/17 [History] Amiodarone [Cordarone] 200 mg PO DAILY 11/23/17 [History] Fluticasone Propionate Nasal [Flonase] 1 spr NS BID 11/23/17 [History] Budesonide/Formoterol 80/4.5 [Symbicort 80/4.5] 2 puff IH BIDRESP 30 Days #1 inhaler 11/25/17 [Rx] Ipratropium/Albuterol Neb [Duoneb] 3 ml IH QIDR 30 Days #1 11/25/17 [Rx] levoFLOXacin [Levaquin] 750 mg PO DAILY #5 tablet 11/25/17 [Rx] predniSONE [PredniSONE] 10 mg PO DAILY #35 tablet 11/25/17 [Rx] Allergies/Adverse Reactions: 3 Allergy/AdvReac Type Severity Reaction Status Date / Time No Known Drug Allergies Allergy See Verified 11/23/17 17:29 Comments Date of admission: 11/23/17 22:32 Primary care physician: PCP NONE Consults: 11/23/17 22:38 Consult to Nurse Navigator [CONS] Routine Comment: Discharging clinician: Nicolas Smiley Anticipated date of discharge: 11/25/17 - Constitutional Vitals: Temp Pulse Resp BP Pulse Ox 97.6 F 87 22 144/80 87 11/25/17 08:30 11/25/17 08:30 11/25/17 08:30 11/25/17 08:30 11/25/17 08:30 General appearance: Present: A&O X 3 Exam: Gen: Vitals noted. No acute distress. Morbidly obese. Currently on BiPAP HEENT: Normocephalic, atraumatic Neck: Supple. No adenopathy. Cardiac: RRR, no murmur, +S1/S2 Pulmonary: Poor inspiratory effort, minimal wheezes noted on exam Abdomen: soft, nontender, BS noted, no guarding Back: Nontender throughout. MSK: ROM intact, no joint swelling noted Extremities: 1-2 b/l LE edema, nontender calf, no cyanosis or clubbing Neuro: A&Ox3, moves all extremities, no focal deficits Psych: Appropriate mood and behavior - Patient Status Disposition: Home Health Service Condition: Fair Overall status at discharge: patient is progressing back to baseline - Discharge Instructions Follow Up With: Chip Cornejo MD [Partnered Physician] - Additional Instructions: Follow-up with primary care in 3-4 days. Follow-up with pulmonology in 2-4 weeks Continue to use BiPAP at night and while sleeping in general. Use Symbicort twice a day. Continue prednisone taper as directed, continue Levaquin for total 4 more days. Return to the ED for a current symptoms, worsening shortness of breath, worsening cough, fever, chills, changes consciousness. - Diet and Activity Activity: increase activity as tolerated, wear oxygen at all times Diet: low salt diet <Michelet Vang - Last Filed: 11/26/17 10:32> Orders not resulted at time of discharge: Pending orders 11/27/17 04:00 PT/INR [Prothrombin Time INR] [COAG] AM 0400 11/28/17 04:00 PT/INR [Prothrombin Time INR] [COAG] AM 0400 Date of Encounter: 11/26/17 - Discharge Diagnosis (1) Acute exacerbation of chronic obstructive airways disease Status: Suspected (2) CHF (congestive heart failure) Status: Chronic Qualifiers: Heart failure type: unspecified Heart failure chronicity: acute on chronic Qualified Code(s): I50.9 - Heart failure, unspecified (3) HLD (hyperlipidemia) Status: Chronic Qualifiers: Hyperlipidemia type: unspecified Qualified Code(s): E78.5 - Hyperlipidemia , unspecified (4) Acute respiratory failure with hypercapnia Status: Acute (5) Morbid obesity due to excess calories Status: Chronic (6) Depression Status: Chronic Qualifiers: Depression Type: unspecified Qualified Code(s): F32.9 - Major depressive disorder, single episode, unspecified (7) Artificial pacemaker Status: Acute Hospital course: Mr. Rubalcava is a 56 year old male - Time Spent with Patient Total time spent providing and/or coordinating discharge services: Date of admission: 11/23/17 22:32 Primary care physician: PCP NONE Consults: 11/23/17 22:38 Consult to Nurse Navigator [CONS] Routine Comment: - Constitutional Vitals: Temp Pulse Resp BP Pulse Ox 98.4 F 73 18 132/91 97 11/26/17 07:13 11/26/17 07:13 11/26/17 10:08 11/26/17 10:08 11/26/17 10:08 - Attending Attestation Acute on chronic hypoxic hypercapnic respiratory failure secondary to acute COPD exacerbation due to acute bacterial bronchitis in combination to acute diastolic CHF exacerbation Continue slow prednisone taper, Levaquin and Lasix BIPAP to be continued Echocardiogram report pending, can be followed by PCP Morbid obesity time spent: 40 min I examined this patient and my medical decision-making was reviewed with the Resident Physician. I agree with the documented findings, disposition and treatment plan as described except to the extent set forth below.
--- NOTE | 2017-11-25 11:02 | Internal Med Progress Note ---
<Nicolas Smiley - Last Filed: 11/25/17 10:59> Date of Encounter: 11/25/17 Time of Encounter: 10:59 - Assessment and plan (1) Acute respiratory failure with hypercapnia Current Visit: Yes Status: Acute Assessment and plan: Respiratory failure with hypoxia and hypercapnia on admission Bicarb remains elevated on BMP, VBG shows pCO2 56 Likely the patient is a chronic CO2 retainer Ordered D-Dimer for possible PE which is negative Per pulmonology Continue BiPAP Taper steroids over two weeks at discharge Continue current antibiotic regimen Follow-up 2-4wks in pulmonology clinic Patient is at high risk for readmission due to severe lung disease and poor compliance with positive airway pressure devices/medications (2) Acute exacerbation of chronic obstructive airways disease Current Visit: Yes Status: Suspected Assessment and plan: SOB due to COPD exacerbation Levaquin Day 3, Continue 7 day course Taper Steroids over 2 weeks at time of discharge Symbicort daily BID Duonebs as needed (3) CHF (congestive heart failure) Current Visit: No Status: Chronic Assessment and plan: History of Diastolic heart failure PLAN: Lasix currently at 40IV BID, however he has had a small bump in his BUN suggesting he may be approaching euvolemic state I will lower dose to 20IV BID Continue Statin + Amiodarone Qualifiers: Heart failure type: unspecified Heart failure chronicity: acute on chronic Qualified Code(s): I50.9 - Heart failure, unspecified (4) HLD (hyperlipidemia) Current Visit: No Status: Chronic Assessment and plan: we will continue home medication Qualifiers: Hyperlipidemia type: unspecified Qualified Code(s): E78.5 - Hyperlipidemia , unspecified (5) Morbid obesity due to excess calories Current Visit: Yes Status: Chronic (6) Depression Current Visit: No Status: Chronic Assessment and plan: Continue home meds Qualifiers: Depression Type: unspecified Qualified Code(s): F32.9 - Major depressive disorder, single episode, unspecified (7) Artificial pacemaker Current Visit: No Status: Acute Assessment and plan: Stable - Time Spent With Patient Total time spent is greater than 50% in coordination of care (as documented) at patient's floor/unit and/or counseling patient: - Subjective Interval history: The patient is seen and examined that side. He is currently on BiPAP at time of examination. He says that the BiPAP has made him much more comfortable. He says that he is feeling nearly back to baseline, however he still is not ready to go home. He understands that his lack of compliance to BiPAP plays a major role in his admission to the hospital, and he plans to use it more reliably at time of discharge. - Constitutional Vitals: Temp Pulse Resp BP Pulse Ox 97.6 F 87 22 144/80 87 11/25/17 08:30 11/25/17 08:30 11/25/17 08:30 11/25/17 08:30 11/25/17 08:30 General appearance: Present: A&O X 3 Exam: Gen: Vitals noted. No acute distress. Morbidly obese. Currently on BiPAP HEENT: Normocephalic, atraumatic Neck: Supple. No adenopathy. Cardiac: RRR, no murmur, +S1/S2 Pulmonary: Poor inspiratory effort, minimal wheezes noted on exam Abdomen: soft, nontender, BS noted, no guarding Back: Nontender throughout. MSK: ROM intact, no joint swelling noted Extremities: 1-2 b/l LE edema, nontender calf, no cyanosis or clubbing Neuro: A&Ox3, moves all extremities, no focal deficits Psych: Appropriate mood and behavior Internal Medicine: Result - Labs CBC & Chem 7: 11/25/17 06:52 11/25/17 06:52 Labs: Short CBC 11/25/17 Range/Units 06:52 WBC 12.7 H (4.3-11.1) K/mcL Hgb 11.4 L (12.9-16.9) g/dL Hct 42.4 (37.5-50.1) % Plt Count 219 (140-400) K/mcL Neutrophils # 11.7 H (1.6-8.9) K/mcL BMP 11/25/17 06:52 Sodium 142 Potassium 4.9 Chloride 88 L Carbon Dioxide > 45 H* BUN 24 H Creatinine 0.73 Glucose 152 H Calcium 9.2 Cardiac Enzymes 11/24/17 Range/Units 10:41 Troponin I < 0.03 (< 0.04) ng/mL Liver Function 11/25/17 Range/Units 06:52 Total Bilirubin 0.4 (0.3-1.0) mg/dL AST 14 (13-39) Units/L ALT 10 (7-52) Units/L Alkaline Phosphatase 92 (34-104) Units/L Albumin 3.4 L (3.5-5.7) g/dL - ABG Interpretation ABG results: PT/INR, D-dimer PT 21.3 Seconds (9.4-12.1) H 11/25/17 06:52 D-Dimer < 215 ng/mLFEU (0-500) 11/24/17 12:29 Consult Discharge Plan - Plan Referrals: Chip Cornejo MD [Partnered Physician] - Prescriptions: Budesonide/Formoterol 80/4.5 [Symbicort 80/4.5] 2 puff IH BIDRESP 30 Days #1 inhaler Ipratropium/Albuterol Neb [Duoneb] 3 ml IH QIDR 30 Days #1 levoFLOXacin [Levaquin] 750 mg PO DAILY #5 tablet predniSONE [PredniSONE] 10 mg PO DAILY #35 tablet <Michelet Vang H - Last Filed: 11/25/17 12:18> Date of Encounter: 11/25/17 - Assessment and plan (1) Acute exacerbation of chronic obstructive airways disease Current Visit: Yes Status: Suspected (2) CHF (congestive heart failure) Current Visit: No Status: Chronic Qualifiers: Heart failure type: unspecified Heart failure chronicity: acute on chronic Qualified Code(s): I50.9 - Heart failure, unspecified (3) HLD (hyperlipidemia) Current Visit: No Status: Chronic Qualifiers: Hyperlipidemia type: unspecified Qualified Code(s): E78.5 - Hyperlipidemia , unspecified (4) Acute respiratory failure with hypercapnia Current Visit: Yes Status: Acute (5) Morbid obesity due to excess calories Current Visit: Yes Status: Chronic (6) Depression Current Visit: No Status: Chronic Qualifiers: Depression Type: unspecified Qualified Code(s): F32.9 - Major depressive disorder, single episode, unspecified (7) Artificial pacemaker Current Visit: No Status: Acute - Time Spent With Patient Total time spent is greater than 50% in coordination of care (as documented) at patient's floor/unit and/or counseling patient: - Constitutional Vitals: Temp Pulse Resp BP Pulse Ox 97.6 F 87 16 144/80 96 11/25/17 08:30 11/25/17 08:30 11/25/17 10:43 11/25/17 08:30 11/25/17 10:43 Internal Medicine: Result - Labs CBC & Chem 7: 11/25/17 06:52 11/25/17 06:52 Labs: Short CBC 11/25/17 Range/Units 06:52 WBC 12.7 H (4.3-11.1) K/mcL Hgb 11.4 L (12.9-16.9) g/dL Hct 42.4 (37.5-50.1) % Plt Count 219 (140-400) K/mcL Neutrophils # 11.7 H (1.6-8.9) K/mcL BMP 11/25/17 06:52 Sodium 142 Potassium 4.9 Chloride 88 L Carbon Dioxide > 45 H* BUN 24 H Creatinine 0.73 Glucose 152 H Calcium 9.2 Liver Function 11/25/17 Range/Units 06:52 Total Bilirubin 0.4 (0.3-1.0) mg/dL AST 14 (13-39) Units/L ALT 10 (7-52) Units/L Alkaline Phosphatase 92 (34-104) Units/L Albumin 3.4 L (3.5-5.7) g/dL - ABG Interpretation ABG results: PT/INR, D-dimer PT 21.3 Seconds (9.4-12.1) H 11/25/17 06:52 D-Dimer < 215 ng/mLFEU (0-500) 11/24/17 12:29 - Attending Attestation Acute on chronic hypoxic hypercapnic respiratory failure secondary to acute COPD exacerbation due to acute bacterial bronchitis in combination to acute diastolic CHF exacerbation Continue Solu-Medrol, Levaquin day #3, IV Lasix Echocardiogram pending Morbid obesity I examined this patient and my medical decision-making was reviewed with the Resident Physician. I agree with the documented findings, disposition and treatment plan as described except to the extent set forth below.
[2017-11-25] MEDS: *HR* Amiodarone 200 MG TABLET PO SCH (11:11)
[2017-11-25] MEDS: Fluticasone Propionate Nasal 50 MCG/SPRAY BOTTLE NS SCH ×2 (11:11→22:03)
[2017-11-25] MEDS: Multivit/Ca/Min/Fe/FA 1 TAB TABLET PO SCH (11:11)
[2017-11-25] MEDS: Levofloxacin 500 MG/100 ML 500 MG/100 ML BAG IVPB SCH (17:39)
[2017-11-25] MEDS: Furosemide 40 MG/4 ML VIAL IVP SCH (17:39)
[2017-11-25] MEDS ORDERED: *HR* Warfarin 5 MG TABLET PO ONE (18:00)
[2017-11-26] MEDS: Ipratropium/Albuterol Neb 3 ML IH SCH ×2 (03:47→10:09)
[2017-11-26 04:09] LABS: INR 2.2; Prothrombin Time 24.2 Seconds (9.4-12.1)
[2017-11-26 07:13] VITALS: BP 132/91
--- NOTE | 2017-11-26 09:55 | Physician Discharge Referral ---
<Nicolas Smiley - Last Filed: 11/26/17 09:54> Home Health/Hosp Referral Info Transfer to: Home Health Attending Provider: Kyaw Provider in Charge Post Discharge: PCP - Diagnosis (1) Acute respiratory failure with hypercapnia Priority: Primary Status: Acute (2) Acute exacerbation of chronic obstructive airways disease Priority: Secondary Status: Suspected (3) CHF (congestive heart failure) Priority: Secondary Status: Chronic (4) HLD (hyperlipidemia) Priority: Secondary Status: Chronic (5) Morbid obesity due to excess calories Priority: Secondary Status: Chronic (6) Depression Priority: Secondary Status: Chronic (7) Artificial pacemaker Priority: Secondary Status: Acute - Respiratory Orders Oxygen / L per min (PRN for SPO2 88-92%) Smoking Cessation: Smoking cessation has been advised. For more information, call the [employer] Tobacco Quit Line at 9-958-NOBQ-NOW. - Diet/Nutrition Diet/Nutrition Orders: No Added Salt (PRASANNA) - Activity Activity Orders: Ambulate, Chair - Services Needed Following services are medically necessary services: Nursing, Home Health Aide, Physical Therapy, Occupational Therapy - Transfer Medications Prescriptions: Budesonide/Formoterol 80/4.5 [Symbicort 80/4.5] 2 puff IH BIDRESP 30 Days #1 inhaler Ipratropium/Albuterol Neb [Duoneb] 3 ml IH QIDR 30 Days #1 levoFLOXacin [Levaquin] 750 mg PO DAILY #5 tablet predniSONE [PredniSONE] 10 mg PO DAILY #35 tablet Home Medications: Atorvastatin Calcium [Lipitor] 80 mg PO DAILY 05/04/15 [History] Multivitamin/Ferrous Sulfate [One-Daily Xqfoi-Roe-Cnmg Tab] 1 tab PO DAILY 05/04 [History] Potassium Chloride [Klor-Con 10] 20 meq PO DAILY 05/05/16 [History] Albuterol Neb [Proventil Neb] 2.5 mg IH Q4HR PRN 14 Days vial.neb 05/07/16 [Rx] Citalopram [CeleXA] 40 mg PO DAILY #20 tablet 05/28/16 [Rx] Warfarin [Coumadin] 7.5 mg PO Q2D 07/10/16 [History] Oxygen 4 l IH AD 12/12/16 [History] Furosemide [Lasix] 40 mg PO BID 08/11/17 [History] Warfarin [Coumadin] 5 mg PO Q2D 10/23/17 [History] Amiodarone [Cordarone] 200 mg PO DAILY 11/23/17 [History] Fluticasone Propionate Nasal [Flonase] 1 spr NS BID 11/23/17 [History] Budesonide/Formoterol 80/4.5 [Symbicort 80/4.5] 2 puff IH BIDRESP 30 Days #1 inhaler 11/25/17 [Rx] Ipratropium/Albuterol Neb [Duoneb] 3 ml IH QIDR 30 Days #1 11/25/17 [Rx] levoFLOXacin [Levaquin] 750 mg PO DAILY #5 tablet 11/25/17 [Rx] predniSONE [PredniSONE] 10 mg PO DAILY #35 tablet 11/25/17 [Rx] Allergies/Adverse Reactions: 3 Allergy/AdvReac Type Severity Reaction Status Date / Time No Known Drug Allergies Allergy See Verified 11/23/17 17:29 Comments Certification: Further, I certify that my clinical findings support that this patient is homebound (i.e. absences from home require considerable and taxing effort and are for medical reasons or christianity services or infrequently or short duration when for other reasons) because: Homebound Reason: Absences from home are contraindicated except to recieve medical care, Leaving home requires considerable and taxing effort due to condition, Severity of cardiac or pulmonary status limits activity tolerance Attestation: My signature below is to certify that this patient is under my care and that I, or nurse practitioner, or a physician's community assistant working with me, has a face-to -face encounter with this patient. <Michelet Vang - Last Filed: 11/26/17 10:32> - Diagnosis (1) Acute exacerbation of chronic obstructive airways disease Status: Suspected (2) CHF (congestive heart failure) Status: Chronic (3) HLD (hyperlipidemia) Status: Chronic (4) Acute respiratory failure with hypercapnia Status: Acute (5) Morbid obesity due to excess calories Status: Chronic (6) Depression Status: Chronic (7) Artificial pacemaker Status: Acute - Respiratory Orders Smoking Cessation: Smoking cessation has been advised. For more information, call the [place] Tobacco Quit Line at 2-702-BZWD-NOW. Certification: Further, I certify that my clinical findings support that this patient is homebound (i.e. absences from home require considerable and taxing effort and are for medical reasons or christianity services or infrequently or short duration when for other reasons) because: Attestation: My signature below is to certify that this patient is under my care and that I, or nurse practitioner, or a physician's community assistant working with me, has a face-to -face encounter with this patient.
[2017-11-26] MEDS: Budesonide/Formoterol 80/4.5 MDI IH SCH (10:08)
[2017-11-26] MEDS: Multivit/Ca/Min/Fe/FA 1 TAB TABLET PO SCH (10:28)
[2017-11-26] MEDS: *HR* Amiodarone 200 MG TABLET PO SCH (10:28)
[2017-11-26] MEDS: MethylPREDNISolone 40 MG/ML VIAL IVP SCH (10:28)
[2017-11-26] MEDS: Fluticasone Propionate Nasal 50 MCG/SPRAY BOTTLE NS SCH (10:28)
[2017-11-26] MEDS: Furosemide 40 MG/4 ML VIAL IVP SCH (10:28)
[2017-11-26] MEDS ORDERED: *HR* Warfarin 7.5 MG TABLET PO ONE (18:00)
== END 2017-11-26 15:21 | disposition home health service (06) | DRG 190 ==
LOC: EMEROO 15:42 → 2NENU 15:42
PROVIDERS: ADMIT Hospitalist; ATTEND Hospitalist

== ENCOUNTER 2018-01-02 17:29 | Inpatient (IN) ==
[2018-01-02] MEDS ORDERED: Naloxone 0.4 MG/ML INJ IVP PRN (21:20)
[2018-01-02] MEDS ORDERED: Ipratropium/Albuterol Neb 3 ML IH PRN (21:26)
--- NOTE | 2018-01-02 21:41 | Internal Med History&Physical ---
Date of Encounter: 01/02/18 Time of Encounter: 21:20 Internal Medicine - H&P: HPI Chief complaint: SOB Admitted From: Home Plans for Post Hospital Care: Home History of present illness: Mr. Rubalcava is a 57 year old male with PMHx of COPD on 4L O2, Afib, CHF, HTN , presented to [facility] ED with increasing shortness of breath. His breathing has gotten worse over the last 2 weeks and also had increase cough with sputum production. Unsure whether it was more purulent as he would swallow them. No fever but chills, chest pain only upon coughing. No palpitation, orthopnea, PND , LE swelling. He states that he does not use his BiPaP as much as he was instructed to. He is not able to really verbalize why he doesn't wear them other than saying "I just don't like being on it". Denies GI/ symptoms. On presentation to the ED, he was afebrile and hemodynamically stable with SpO2 90 % on 4L O2. SpO2 improved to 95% with BiPaP. Initial workup showed mild leukocytosis of 11.5, VBG 7.32/108/54/55. Troponin -ve, BNP 75. CXR showed ?R sided haziness that appears new. EKG NSR without ST elevation. He was given IV solumedrol en route to the ED and was given IV Colton/zithromax from the ED. He was then transferred to [facility] for further management. Past Med Surg Social Fam HX - Past Medical History Medical history: atrial fibrillation, CHF, COPD, hyperlipidemia, hypertension, other Additional medical history: deaf in right ear. Psychiatric history: anxiety, depression - Past Surgical History Surgical History: pacemaker/AICD - Social History Smoking Status: Former smoker Smokeless Tobacco Status: No Alcohol use: none Drug use: none - Family History Mother Family Member Ethnicity: Non- Living Status: Still Living Hx Family Cardiac Disorders: No Hx Family Respiratory Disorders: No Hx Family Cancer: Yes Hx Family GI Disorders: No Hx Family Endocrine Disorder: No Father Adopted: No Family Member Ethnicity: Non- Living Status: Hx Family Cancer: Yes Hx Family GI Disorders: No Internal Medicine - H&P: Meds Atorvastatin Calcium [Lipitor] 80 mg PO DAILY 05/04/15 [History] Multivitamin/Ferrous Sulfate [One-Daily Qmbga-Olo-Fpzd Tab] 1 tab PO DAILY 05/04 [History] Potassium Chloride [Klor-Con 10] 20 meq PO DAILY 05/05/16 [History] Albuterol Neb [Proventil Neb] 2.5 mg IH Q4HR PRN 14 Days vial.neb 05/07/16 [Rx] Citalopram [CeleXA] 40 mg PO DAILY #20 tablet 05/28/16 [Rx] Warfarin [Coumadin] 7.5 mg PO Q2D 07/10/16 [History] Oxygen 4 l IH AD 12/12/16 [History] Furosemide [Lasix] 40 mg PO BID 08/11/17 [History] Warfarin [Coumadin] 5 mg PO Q2D 10/23/17 [History] Amiodarone [Cordarone] 200 mg PO DAILY 11/23/17 [History] Fluticasone Propionate Nasal [Flonase] 1 spr NS BID 11/23/17 [History] Budesonide/Formoterol 80/4.5 [Symbicort 80/4.5] 2 puff IH BIDRESP 30 Days #1 inhaler 11/25/17 [Rx] Ipratropium/Albuterol Neb [Duoneb] 3 ml IH QIDR 30 Days #1 11/25/17 [Rx] levoFLOXacin [Levaquin] 750 mg PO DAILY #5 tablet 11/25/17 [Rx] predniSONE [PredniSONE] 10 mg PO DAILY #35 tablet 11/25/17 [Rx] 3 Allergy/AdvReac Type Severity Reaction Status Date / Time OLIVER Inhibitors AdvReac Cough Verified 01/02/18 20:54 All Systems PM: A 10-system review of systems was performed and is negative for pertinent findings except as documented above in the HPI. - Constitutional Vitals: Temp Pulse Resp BP Pulse Ox 98.8 F 77 21 144/86 96 01/02/18 19:51 01/02/18 19:51 01/02/18 20:01 01/02/18 19:51 01/02/18 20:01 Exam: General: Alert and oriented, on BIPAP, not in distress HEENT:EOM, pupils equal, round, and reactive. Cardiovascular:Normal S1 & S2, no murmurs or gallops. No JVD. Pulse regular. Lungs:Distant breath sounds, unable to appreciate wheezes or crackles. Abdomen:Soft, non-tender, no rigidity. Extremities:No deformity, no edema or tenderness, no joint swelling. Neurological:Normal cognition and motor skills. Skin:Normal color, no rash, no lesions. Pulses:Carotid and radial pulses normal +2. Rest of the physical exam is non-contributory Internal Med - H&P Results - Labs Labs: mentioned in HPI - ABG Interpretation Interpretation: respiratory acidosis - EKG Data -: EKG Interpreted by Myself EKG shows normal: sinus rhythm - Diagnostic Studies Chest x-ray Additional comments: ?R lung haziness - Assessment and plan (1) COPD exacerbation Current Visit: Yes Status: Acute Assessment and plan: Increasing SOB, cough, and sputum production Due to ?possible PNA, non-compliance to BiPaP given IV steroid and abx at OSH Continue IV steroid, bronchodilator. and symbicort BiPaP intermittently, repeat VBG tomorrow CT Chest non-con in view of new right sided airspace disease on CXR given recent hospitalization < 90 days ago, will empirically cover with 1 dose of IV zosyn till CT chest is done continue IV azithromycin consider pulm consult in the morning (2) Pneumonia Current Visit: Yes Status: Acute Assessment and plan: As above, will get CT chest and cover empirically with 1 dose of zosyn Qualifiers: Pneumonia type: due to unspecified organism Laterality: right Lung location: unspecified part of lung Qualified Code(s): J18.9 - Pneumonia, unspecified organism (3) Obesity hypoventilation syndrome Current Visit: Yes Status: Chronic Assessment and plan: BiPaP intermittently Emphasized compliance to BiPaP at home (4) CHF (congestive heart failure) Current Visit: No Status: Chronic Assessment and plan: Not in compensation, BNP normal Echo recently done in 10/2017 continue home dose of lasix Qualifiers: Heart failure type: unspecified Heart failure chronicity: acute on chronic Qualified Code(s): I50.9 - Heart failure, unspecified (5) Atrial fibrillation Current Visit: No Status: Chronic Assessment and plan: NSR currently, on amiodarone and warfarin at home. INR therapeutic States that he is on daily amio but not sure about his warfarin dose. Will need to be reconciled with his . Qualifiers: Atrial fibrillation type: chronic Qualified Code(s): I48.2 - Chronic atrial fibrillation (6) DVT prophylaxis Current Visit: No Status: Acute Assessment and plan: SQ heparin - Time Spent With Patient Total time spent is greater than 50% in coordination of care (as documented) at patient's floor/unit and/or counseling patient:
[2018-01-02] MEDS ORDERED: Piperacillin/Tazobactam 3.375 GM in 0.9 % Sodium Chloride Mini Bag 100 ML IVPB ONE (21:49)
[2018-01-02] MEDS: *HR* Heparin 5,000 UNIT/ML VIAL SQ SCH (23:11)
[2018-01-02] MEDS: Budesonide/Formoterol 80/4.5 MDI IH SCH (23:40)
[2018-01-02] MEDS: Ipratropium/Albuterol Neb 3 ML IH SCH (23:40)
[2018-01-03 00:59] LABS: Nucleated Red Blood Cells 0.3 /100 WBC (0); Platelet Count 218 K/mcL (140-400)
[2018-01-03 01:01] LABS: Basophils % 0.2 %; Hematocrit 39.5 % (37.5-50.1); Immature Granulocytes % 1.1 % (0-4); Lymphocytes # 0.4 K/mcL (0.6-4.6); Lymphocytes % 4.2 %; Mean Corpuscular HGB Conc 27.8 g/dL (31.6-35.5); Mean Corpuscular Hemoglobin 25.2 pg (28.0-33.3); Mean Corpuscular Volume 90.4 fL (83.0-100.0); Monocytes # 0.1 K/mcL (0.0-1.3); Monocytes % 1.1 %; Red Blood Count 4.37 M/mcL (4.19-5.50); Red Cell Distribution Width 15.6 % (11.5-14.5); Segmented Neutrophils % 93.4 %
[2018-01-03 01:26] LABS: VBG HCO3 53 mEq/L (21-27); VBG PCO2 110 mmHg (41-51); VBG PH 7.29 pH Units (7.32-7.42); VBG PO2 144 mmHg (25-50)
[2018-01-03 01:32] LABS: INR 2.5; Prothrombin Time 28.5 Seconds (9.4-12.1)
[2018-01-03 02:56] LABS: Neutrophils # 9.1 K/mcL (1.6-8.9)
[2018-01-03 03:01] LABS: Hypochromasia Present (Not Present); Platelet Estimate Normal (Normal)
[2018-01-03 03:18] LABS: Chloride 90 mEq/L (98-107); Potassium 5.1 mEq/L (3.5-5.1); Sodium 144 mEq/L (136-145)
[2018-01-03 03:19] LABS: BUN/Creatinine Ratio 33 (6-26); Blood Urea Nitrogen 20 mg/dL (6-20); Calcium 9.4 mg/dL (8.6-10.3); Glucose 149 mg/dL (70-105); Osmolality,Calculated 303 (280-300); eGFR For African Americans > 60 (> 60); eGFR For Non-African Americans > 60 (> 60)
[2018-01-03 03:46] LABS: Carbon Dioxide > 45 mEq/L (23-29)
[2018-01-03] MEDS: Ipratropium/Albuterol Neb 3 ML IH SCH ×4 (04:01→22:12)
[2018-01-03 04:33] LABS: ABG Base Excess 22 mEq/L (-2 to 3); ABG HCO3 56 mEq/L (21-27); ABG Oxygen Saturation 96 % (95-98); ABG PCO2 128 mmHg (35-45); ABG PH 7.25 pH Units (7.32-7.45); ABG PO2 106 mmHg (85-104); ABG TCO2 60 mEq/L (20-26)
[2018-01-03] MEDS ORDERED: Furosemide 40 MG TABLET PO SCH (08:00)
--- NOTE | 2018-01-03 08:00 | Internal Med Progress Note ---
<Jarek Bennett - Last Filed: 01/03/18 17:55> Date of Encounter: 01/03/18 - Assessment and plan (1) Acute on chronic respiratory failure with hypercapnia Current Visit: No Status: Acute Assessment and plan: Transfer to ICU for monitoring. May need intubated if does not continue to improve. (2) COPD exacerbation Current Visit: Yes Status: Acute Assessment and plan: Continue aerosols and steroids. Completed course of abx. (3) CHF exacerbation Current Visit: No Status: Acute Assessment and plan: Continue aggressive diuresis Qualifiers: Qualified Code(s): I50.33 - Acute on chronic diastolic (congestive) heart failure (4) Hyperkalemia Current Visit: No Status: Acute Assessment and plan: Given some Lasix so will recheck. (5) GAVIN (obstructive sleep apnea) Current Visit: No Status: Chronic Assessment and plan: Chronic issue (6) Morbid obesity due to excess calories Current Visit: No Status: Chronic Assessment and plan: Chronic issue (7) Diabetes Current Visit: No Status: Chronic Assessment and plan: Monitor blood sugars and cover. Qualifiers: Diabetes mellitus type: type 2 Diabetes mellitus longterm insulin use: with rn long term care use Diabetes mellitus complication status: with hyperglycemia Qualified Code(s): E11.65 - Type 2 diabetes mellitus with hyperglycemia; Z79.4 - long term (current) use of insulin - Time Spent With Patient Total time spent is greater than 50% in coordination of care (as documented) at patient's floor/unit and/or counseling patient: - Constitutional Vitals: Temp Pulse Resp BP Pulse Ox 97.4 F L 77 16 134/87 95 01/03/18 16:13 01/03/18 16:13 01/03/18 16:13 01/03/18 16:13 01/03/18 16:13 Internal Medicine: Result - Labs CBC & Chem 7: 01/03/18 00:16 01/03/18 16:15 Labs: Short CBC 01/03/18 Range/Units 00:16 WBC 9.7 (4.3-11.1) K/mcL Hgb 11.0 L (12.9-16.9) g/dL Hct 39.5 (37.5-50.1) % Plt Count 218 (140-400) K/mcL Neutrophils # 9.1 H (1.6-8.9) K/mcL BMP 01/03/18 01/03/18 00:16 16:15 Sodium 144 145 Potassium 5.1 5.2 H Chloride 90 L 91 L Carbon Dioxide > 45 H* > 45 H* BUN 20 28 H Creatinine 0.61 L 0.79 Glucose 149 H 152 H Calcium 9.4 9.2 - ABG Interpretation ABG results: ABG ABG pH 7.30 pH Units (7.32-7.45) L 01/03/18 16:08 ABG pCO2 113 mmHg (35-45) H* 01/03/18 16:08 ABG pO2 93 mmHg (85-104) 01/03/18 16:08 ABG O2 Saturation 95 % (95-98) 01/03/18 16:08 PT/INR, D-dimer PT 28.5 Seconds (9.4-12.1) H 01/03/18 00:16 D-Dimer < 215 ng/mLFEU (0-500) 01/03/18 00:16 - Impressions Impressions Chest CT 01/02/18 21:26 IMPRESSION: Moderate CHF D/ / Harvey Lyons MD / Harvey Lyons MD Interpreting Provider: Harvey Lyons MD Consult Discharge Plan - Plan Referrals: NONE,PCP [Primary Care Provider] - - Attending Attestation I examined this patient and my medical decision-making was reviewed with the Resident Physician on 01/03/18. I agree with the documented findings, disposition and treatment plan as described except to the extent set forth below. Mr Rubalcava is currently admitted for acute hypercarbic resp failure due to COPD. He remains moderate to high risk due to potential for worsening clinical and respiratory status. Mr Rubalcava has been on bipap today. He still remains acidotic and hypercarbic. He is more alert. He has been seen by pulm and moved to ICU. No GI issue. No CP. Exam alert Mod resp distress Mucus membranes dry Heart distant Lungs with diffuse wheeze abd soft I/P 1. Resp failure 2. COPD Further diagnoses and plan as above. <Sherley Bethea N - Last Filed: 01/03/18 18:39> Date of Encounter: 01/03/18 Time of Encounter: 18:06 - Assessment and plan (1) Acute on chronic respiratory failure with hypercapnia Current Visit: No Status: Acute Assessment and plan: Patient has been admitted for this problem several times, largely due to comorbidities and poor patient compliance with use of BiPAP at home. He has had minimal improvement in ABG today after several hours on BiPAP. He has been somnolent for most of the day and has been very difficult to wake. Discussed possibility of needing intubation in the near future, which the patient wanted discussed with his as well. Pulmonary consult placed and ventilator settings were adjusted. He is currently tolerating AVAPS, but has been transferred to the ICU for closer nursing observation per pulmonology recommendation. Appreciate pulmonology assessment and contribution top the management of this patient. (2) Acute exacerbation of chronic obstructive airways disease Current Visit: No Status: Suspected Assessment and plan: Patient is currently receiving IV steroids and bronchodilators. He has completed a course of antibiotics. Will continue to monitor closely and manage as appropriate. (3) CHF (congestive heart failure) Current Visit: No Status: Chronic Assessment and plan: Patient was administered 2 doses of lasix (40mg IVP) along with 500mg IVP diamox. Plan to reassess tomorrow, with close attention to electrolytes. Qualifiers: Heart failure type: unspecified Heart failure chronicity: acute on chronic Qualified Code(s): I50.9 - Heart failure, unspecified (4) Urinary retention Current Visit: Yes Status: Acute Assessment and plan: Bladder scan ordered due to patient complaints of urinary frequency. Bucio catheter ordered due to post-void residual. Plan to reassess this issue after catheter is removed, with referral for appropriate work up as appropriate. (5) Atrial fibrillation Current Visit: No Status: Chronic Assessment and plan: Continue home medication regimen. Qualifiers: Atrial fibrillation type: chronic Qualified Code(s): I48.2 - Chronic atrial fibrillation (6) HLD (hyperlipidemia) Current Visit: No Status: Chronic Assessment and plan: Continue current therapy. Qualifiers: Hyperlipidemia type: unspecified Qualified Code(s): E78.5 - Hyperlipidemia , unspecified (7) Diabetes Current Visit: No Status: Chronic Assessment and plan: Patient is currently NPO. Plan for monitoring of blood glucose with appropriate management as needed. Qualifiers: Diabetes mellitus type: type 2 Diabetes mellitus longterm insulin use: with longterm use Diabetes mellitus complication status: with hyperglycemia Qualified Code(s): E11.65 - Type 2 diabetes mellitus with hyperglycemia; Z79.4 - long term (current) use of insulin (8) Depression Current Visit: No Status: Chronic Assessment and plan: Patient noted to have a depressed affect this morning, which was also stated clearly by the patient. Will continue current medication. Qualifiers: Depression Type: unspecified Qualified Code(s): F32.9 - Major depressive disorder, single episode, unspecified - Time Spent With Patient Total time spent is greater than 50% in coordination of care (as documented) at patient's floor/unit and/or counseling patient: - Subjective Interval history: Mr. Rubalcava is a 57-year old male admitted for acute exacerbation of COPD. He has been frequently admitted for this issue. He complains of shortness of breath. He reports that he does not wear BiPAP as directed at home. He has a depressed affect and is minimally conversant. He has been on BiPAP for most of the day, though nursing staff does report that they have observed intermittent removal of the mask. He has had minimal change in ABG and has remained somnolent and difficult to wake. Considering failure of BiPAP and history of several admissions for this problem, pulmonology consult was placed, and the patient was transferred to the ICU for closer monitoring of respiratory and acid -base status. - Constitutional Vitals: Temp Pulse Resp BP Pulse Ox 97.7 F 78 16 148/78 98 01/03/18 07:08 01/03/18 07:08 01/03/18 07:08 01/03/18 07:08 01/03/18 07:08 Exam: Obese, ill-appearing male in no acute distress. He is somnolent and minimally conversant. - Head Additional comments: Atraumatic and normocephalic. - Respiratory Additional comments: Distant breath sounds bilaterally with diffuse wheezes present. - Cardiovascular Additional comments: Regular rate and rhythm. No murmurs, rubs, or gallops. - Extremities Exam Additional comments: Discoloration of anterior surface of lower legs, likely due to venous insufficiency in bilateral lower extremities. General edema present bilaterally. - Psychiatric Additional comments: Depressed affect. Internal Medicine: Result - Labs CBC & Chem 7: 01/03/18 00:16 01/03/18 16:15 Labs: Short CBC 01/03/18 Range/Units 00:16 WBC 9.7 (4.3-11.1) K/mcL Hgb 11.0 L (12.9-16.9) g/dL Hct 39.5 (37.5-50.1) % Plt Count 218 (140-400) K/mcL Neutrophils # 9.1 H (1.6-8.9) K/mcL BMP 01/03/18 00:16 Sodium 144 Potassium 5.1 Chloride 90 L Carbon Dioxide > 45 H* BUN 20 Creatinine 0.61 L Glucose 149 H Calcium 9.4 - ABG Interpretation ABG results: ABG ABG pH 7.25 pH Units (7.32-7.45) L 01/03/18 04:26 ABG pCO2 128 mmHg (35-45) H* 01/03/18 04:26 ABG pO2 106 mmHg (85-104) H 01/03/18 04:26 ABG O2 Saturation 96 % (95-98) 01/03/18 04:26 PT/INR, D-dimer PT 28.5 Seconds (9.4-12.1) H 01/03/18 00:16 D-Dimer < 215 ng/mLFEU (0-500) 01/03/18 00:16 - Impressions Impressions Chest CT 01/02/18 21:26
[2018-01-03] MEDS ORDERED: Azithromycin 500 MG in D5% in Water 250 ML IVPB SCH (09:00)
[2018-01-03] MEDS ORDERED: *HR* Amiodarone 200 MG TABLET PO SCH (09:00)
[2018-01-03] MEDS ORDERED: MethylPREDNISolone 40 MG/ML VIAL IVP SCH (09:00)
[2018-01-03] MEDS: *HR* Heparin 5,000 UNIT/ML VIAL SQ SCH ×3 (09:02→23:40)
[2018-01-03 09:56] LABS: ABG Base Excess 22 mEq/L (-2 to 3); ABG HCO3 56 mEq/L (21-27); ABG Oxygen Saturation 91 % (95-98); ABG PCO2 123 mmHg (35-45); ABG PH 7.27 pH Units (7.32-7.45); ABG PO2 77 mmHg (85-104); ABG TCO2 60 mEq/L (20-26)
[2018-01-03] MEDS: Budesonide/Formoterol 80/4.5 MDI IH SCH ×2 (11:06→22:10)
[2018-01-03 14:54] LABS: ABG Base Excess 24 mEq/L (-2 to 3); ABG HCO3 57 mEq/L (21-27); ABG Oxygen Saturation 96 % (95-98); ABG PCO2 119 mmHg (35-45); ABG PH 7.29 pH Units (7.32-7.45); ABG PO2 98 mmHg (85-104); ABG TCO2 61 mEq/L (20-26); Blood Gas Modality NIV; Blood Gas Respiration Rate 12; Blood Gas VT 500 cc
--- NOTE | 2018-01-03 15:44 | Pulmonology Consult Note ---
<Jas Frey W - Last Filed: 01/03/18 16:52> Date of Encounter: 01/03/18 Medications and Allergies Atorvastatin Calcium [Lipitor] 80 mg PO DAILY 05/04/15 [History] Multivitamin/Ferrous Sulfate [One-Daily Zoqho-Kti-Avze Tab] 1 tab PO DAILY 05/04 [History] Potassium Chloride [Klor-Con 10] 20 meq PO DAILY 05/05/16 [History] Albuterol Neb [Proventil Neb] 2.5 mg IH Q4HR PRN 14 Days vial.neb 05/07/16 [Rx] Citalopram [CeleXA] 40 mg PO DAILY #20 tablet 05/28/16 [Rx] Warfarin [Coumadin] 7.5 mg PO Q2D 07/10/16 [History] Oxygen 4 l IH AD 12/12/16 [History] Furosemide [Lasix] 40 mg PO BID 08/11/17 [History] Warfarin [Coumadin] 5 mg PO Q2D 10/23/17 [History] Amiodarone [Cordarone] 200 mg PO DAILY 11/23/17 [History] Fluticasone Propionate Nasal [Flonase] 1 spr NS BID 11/23/17 [History] Budesonide/Formoterol 80/4.5 [Symbicort 80/4.5] 2 puff IH BIDRESP 30 Days #1 inhaler 11/25/17 [Rx] Ipratropium/Albuterol Neb [Duoneb] 3 ml IH QIDR 30 Days #1 11/25/17 [Rx] levoFLOXacin [Levaquin] 750 mg PO DAILY #5 tablet 11/25/17 [Rx] predniSONE [PredniSONE] 10 mg PO DAILY #35 tablet 11/25/17 [Rx] 3 Allergy/AdvReac Type Severity Reaction Status Date / Time OLIVER Inhibitors AdvReac Cough Verified 01/02/18 20:54 All Systems: The remainder of the systems were reviewed and are negative Physical Examination Vital Signs: Vital Signs, Last 4 Hours Temp Pulse Resp BP Pulse Ox 01/03/18 16:13 97.4 F L 77 16 134/87 95 01/03/18 16:11 14 94 Ventilator Settings Ventilator Settings: Ventilator Settings, Last 8 Hours Ventilator Tidal Volume 550 Setting Ventilator Tidal Volume 500 Setting Ventilator Respiratory Rate 12 Setting Ventilator Respiratory Rate 12 Setting Positive End Expiratory 10 Pressure Positive End Expiratory 8 Pressure Results - Laboratory Findings CBC and BMP: 01/03/18 00:16 01/03/18 00:16 ABG ABG pH 7.30 pH Units (7.32-7.45) L 01/03/18 16:08 ABG pCO2 113 mmHg (35-45) H* 01/03/18 16:08 ABG pO2 93 mmHg (85-104) 01/03/18 16:08 ABG O2 Saturation 95 % (95-98) 01/03/18 16:08 PT/INR, D-dimer PT 28.5 Seconds (9.4-12.1) H 01/03/18 00:16 D-Dimer < 215 ng/mLFEU (0-500) 01/03/18 00:16 Abnormal lab findings: Abnormal lab results Hgb 11.0 g/dL (12.9-16.9) L 01/03/18 00:16 MCH 25.2 pg (28.0-33.3) L 01/03/18 00:16 MCHC 27.8 g/dL (31.6-35.5) L 01/03/18 00:16 RDW 15.6 % (11.5-14.5) H 01/03/18 00:16 Neutrophils # 9.1 K/mcL (1.6-8.9) H 01/03/18 00:16 Lymphocytes # 0.4 K/mcL (0.6-4.6) L 01/03/18 00:16 Nucleated RBCs/100 WBC 0.3 /100 WBC (0) H 01/03/18 00:16 Hypochromasia Present (Not Present) A 01/03/18 00:16 PT 28.5 Seconds (9.4-12.1) H 01/03/18 00:16 ABG pH 7.30 pH Units (7.32-7.45) L 01/03/18 16:08 ABG pCO2 113 mmHg (35-45) H* 01/03/18 16:08 ABG HCO3 56 mEq/L (21-27) H 01/03/18 16:08 ABG Total CO2 59 mEq/L (20-26) H 01/03/18 16:08 ABG Base Excess 23 mEq/L (-2 to 3) H 01/03/18 16:08 VBG pH 7.29 pH Units (7.32-7.42) L 01/03/18 01:07 VBG pCO2 110 mmHg (41-51) H* 01/03/18 01:07 VBG pO2 144 mmHg (25-50) H 01/03/18 01:07 VBG HCO3 53 mEq/L (21-27) H 01/03/18 01:07 Chloride 90 mEq/L (98-107) L 01/03/18 00:16 Carbon Dioxide > 45 mEq/L (23-29) H* 01/03/18 00:16 Creatinine 0.61 mg/dL (0.70-1.30) L 01/03/18 00:16 BUN/Creatinine Ratio 33 (6-26) H 01/03/18 00:16 Glucose 149 mg/dL (70-105) H 01/03/18 00:16 Calculated Osmolality 303 (280-300) H 01/03/18 00:16 - Clinical Findings Intake & Output: Intake & Output 01/03/18 01/03/18 01/03/18 07:59 15:59 23:59 Intake Total 0 / 0 Output Total 700 / 700 Balance 0 / 0 -700 / -700 Weight 200.7 kg Consult Discharge Plan - Plan Referrals: NONE,PCP [Primary Care Provider] - - Attending Attestation I examined this patient and my medical decision-making was reviewed with the Resident Physician. I agree with the documented findings, disposition and treatment plan as described except to the extent set forth below. We independently had [id number] contact with the patient Patient seen and examined at bedside Labs, radiology, chart personally reviewed. Impression: Acute on chronic hypoxic hypercapnic respiratory failure AECOPD HFpEF with acute decompensation OHS/GAVIN Encephalopathy Acute on chronic metabolic alkalosis Recs: -Currently tolerating noninvasive ventilation with AVAPS mode. Although tenuous respiratory status with high a risk of further deterioration requiring endotracheal intubation. Recommend transfer to ICU for close monitoring. Serial ABGs -Agree with IV steroids and antibiotics consider non-QT prolonging antibiotic with his concomitant use of amiodarone; schedule bronchodilators every 4 hours with with every hour treatments as needed -IV Lasix we have doubled the dose loop diuretic and given a one-time dose of Diamox -Strict monitoring of serum creatinine and electrolytes including K+, Cl- and magnesium with aggressive replacement given underlying metabolic alkalosis Prognosis guarded <Jasper Aguilar - Last Filed: 01/03/18 17:19> Date of Encounter: 01/03/18 Time of Encounter: 15:43 Assessment and Plan (1) Acute on chronic respiratory failure with hypercapnia Current Visit: No Status: Acute Patient does have known COPD he is on 4 L oxygen all the time at home. He is morbidly obese. He also has obstructive sleep apnea. He is very well-known to the pulmonology service. Patient has had a change in mental status. When the pulmonary service when by to see him he was slumped over in his bed not sitting up we had him sit more up. Patient did have a respiratory acidosis. Most likely secondary to hypercapnia. Currently on the BiPAP he is pulling good volumes. ABG right and we are called was 7.3/113/93/56/59/95. Patient also had an elevated bicarbonate as well. To help with patient's fluid overload as he also has CHF we gave him 80 mg IV Lasix prior to him coming to the ICU. We also gave 500 mg Diamox help with the metabolic alkalosis. After reevaluating the patient after the Lasix and Diamox and repositioning we felt it was best to transfer the patient to the ICU he will still be in the hospital service and we will still reconsult in. This is mainly due to having respiratory in the ICU and having more acute nursing staff with lower staff ratios to better care for the patient. We believe that patient can stay on the IPAP machine overnight he just needs to be sure to stay away can take good deep breaths. Patient will be a difficult intubation if he does have to be intubated as he is very obese most likely have to be in a sitting position during intubation due to poor lung volumes as well as patient having GAVIN. (2) Acute exacerbation of chronic obstructive airways disease Current Visit: No Status: Suspected Patient still on BiPAP. He is also on 60 mg every 6 hours of steroids. We will continue to monitor. Continue every 4 hours duo nebs (3) Metabolic alkalosis Current Visit: Yes Status: Acute Patient does have chronic compensating metabolic alkalosis due to his rest Tory acidosis from hypercapnia. Continue to monitor electrolytes as well as BMP for any changes. (4) Acute on chronic respiratory acidosis Current Visit: Yes Status: Acute Patient does not respiratory acidosis likely secondary to hypercapnia. Has a metabolic alkalosis this being treated with BiPAP getting rid of the carbon dioxide as well as Diamox and Lasix to help with fluid overload. We will continue to monitor (5) GAVIN (obstructive sleep apnea) Current Visit: No Status: Chronic Known obstructive sleep apnea. On BiPAP. Continue to monitor (6) Heart failure with preserved ejection fraction Current Visit: No Status: Acute Patient does have known CHF. Last echocardiogram done 11/17. mpressions: LVEF 50%. Despite the use of contrast enhancement, precise evaluation of LVEF was difficult due to poor image quality. Grossly, LVEF appeared grossly low normal. Mildly dilated left ventricle. Indeterminate diastolic function. Atypical septal motion possibly due to a paced rhythm. Grossly, the right ventricle appeared dilated with normal function Continue Lasix treatment. We did give 80 mg Lasix to help quickly diuresis patient. Continue with 60 Lasix every 6 hours. (7) Hypoventilation associated with obesity syndrome Current Visit: No Status: Chronic Continue to monitor. patient still on BiPAP (8) Morbid obesity with BMI of 60.0-69.9, adult Current Visit: No Status: Acute This is deftly making his GAVIN and COPD worse. Consider talking about losing weight as this will help his comorbid condition History of Present Illness Consult date: 01/03/18 Requesting physician: Jarek Bennett Reason for consult: COPD Chief complaint: Respiratory failure History of present illness: Mr. Rubalcava is a 57-year-old male with past medical history of COPD on 4 L of O2 always at home, atrial fibrillation, CHF, hypertension, presented to an outside hospital emergency department with increasing shortness of breath. They noticed that his breathing and gotten worse over the past 2 weeks and increased cough as well as increased sputum production. He was unsure whether was purulent are not. There were no fevers or chills chest pain only upon coughing. Patient states that he does not uses BiPAP as much as he is instructed to he says he just does not like being on it. When he presented to the emergency department he was afebrile he did hemodynamically stable with SPO2 90% on 4 L of oxygen. He was placed on BiPAP he did improve to 95%. He was alert and oriented at that time. Initial workup showed mild leukocytosis of 11.5, VBG showed 7.32/108/54/55. Troponins were negative, BNP 75. Chest x- ray showed right-sided haziness that appears new. EKG was normal sinus rhythm ST elevation. He was given Solu-Medrol on his way to the emergency department he was started on Rocephin and Zithromax in the ED. While the day team hospitalist saw them they knows the patient's mental status had decreased throughout the day and he had more work of breathing. At that time they decided to consult pulmonology for further recommendations. Past Med Surg Social Fam HX - Past Medical History Medical history: atrial fibrillation, CHF, COPD, hyperlipidemia, hypertension, other Additional medical history: deaf in right ear. Psychiatric history: anxiety, depression - Past Surgical History Surgical History: pacemaker/AICD - Social History Smoking Status: Former smoker Smokeless Tobacco Status: No Alcohol use: none Drug use: none - Family History Mother Family Member Ethnicity: Non- Living Status: Still Living Hx Family Cardiac Disorders: No Hx Family Respiratory Disorders: No Hx Family Cancer: Yes Hx Family GI Disorders: No Hx Family Endocrine Disorder: No Father Adopted: No Family Member Ethnicity: Non- Living Status: Hx Family Cancer: Yes Hx Family GI Disorders: No ROS unobtainable: due to mental status All Systems: The remainder of the systems were reviewed and are negative Physical Examination Vital Signs: Vital Signs, Last 4 Hours Pulse Ox 01/03/18 11:51 96 General appearance: alert, agitated (Mildly agitated while having the BiPAP mask on), appears uncomfortable Eyes: nonicteric ENT: oropharynx moist Effort: mildly labored Inspection: normal Auscultation: bilateral: diminished breath sounds, wheezes Cardiovascular: regular rate and rhythm Gastrointestinal: normoactive bowel sounds, soft, non-tender, non-distended Integumentary: normal Extremities: no cyanosis, no edema, no clubbing Musculoskeletal: no deformities normal mental status, non-focal exam, pupils equal and round, motor strength normal and symmetric Results - Laboratory Findings CBC and BMP: 01/03/18 00:16 01/03/18 16:15 ABG ABG pH 7.29 pH Units (7.32-7.45) L 01/03/18 14:49 ABG pCO2 119 mmHg (35-45) H* 01/03/18 14:49 ABG pO2 98 mmHg (85-104) 01/03/18 14:49 ABG O2 Saturation 96 % (95-98) 01/03/18 14:49 PT/INR, D-dimer PT 28.5 Seconds (9.4-12.1) H 01/03/18 00:16 D-Dimer < 215 ng/mLFEU (0-500) 01/03/18 00:16 Abnormal lab findings: Abnormal lab results Hgb 11.0 g/dL (12.9-16.9) L 01/03/18 00:16 MCH 25.2 pg (28.0-33.3) L 01/03/18 00:16 MCHC 27.8 g/dL (31.6-35.5) L 01/03/18 00:16 RDW 15.6 % (11.5-14.5) H 01/03/18 00:16 Neutrophils # 9.1 K/mcL (1.6-8.9) H 01/03/18 00:16 Lymphocytes # 0.4 K/mcL (0.6-4.6) L 01/03/18 00:16 Nucleated RBCs/100 WBC 0.3 /100 WBC (0) H 01/03/18 00:16 Hypochromasia Present (Not Present) A 01/03/18 00:16 PT 28.5 Seconds (9.4-12.1) H 01/03/18 00:16 ABG pH 7.29 pH Units (7.32-7.45) L 01/03/18 14:49 ABG pCO2 119 mmHg (35-45) H* 01/03/18 14:49 ABG HCO3 57 mEq/L (21-27) H 01/03/18 14:49 ABG Total CO2 61 mEq/L (20-26) H 01/03/18 14:49 ABG Base Excess 24 mEq/L (-2 to 3) H 01/03/18 14:49 VBG pH 7.29 pH Units (7.32-7.42) L 01/03/18 01:07 VBG pCO2 110 mmHg (41-51) H* 01/03/18 01:07 VBG pO2 144 mmHg (25-50) H 01/03/18 01:07 VBG HCO3 53 mEq/L (21-27) H 01/03/18 01:07 Chloride 90 mEq/L (98-107) L 01/03/18 00:16 Carbon Dioxide > 45 mEq/L (23-29) H* 01/03/18 00:16 Creatinine 0.61 mg/dL (0.70-1.30) L 01/03/18 00:16 BUN/Creatinine Ratio 33 (6-26) H 01/03/18 00:16 Glucose 149 mg/dL (70-105) H 01/03/18 00:16 Calculated Osmolality 303 (280-300) H 01/03/18 00:16 - Diagnostic Findings CT scan - chest: report reviewed, image reviewed - Clinical Findings Intake & Output: Intake & Output 01/02/18 01/03/18 01/03/18 23:59 07:59 15:59 Intake Total 0 / 0 0 / 0 Output Total 200 / 200 Balance -200 / -200 0 / 0 Weight 201 kg 200.7 kg
[2018-01-03 16:13] LABS: ABG Base Excess 23 mEq/L (-2 to 3); ABG HCO3 56 mEq/L (21-27); ABG Oxygen Saturation 95 % (95-98); ABG PCO2 113 mmHg (35-45); ABG PO2 93 mmHg (85-104); ABG TCO2 59 mEq/L (20-26); Blood Gas Modality NIV; Blood Gas Respiration Rate 12; Blood Gas VT 550 cc
[2018-01-03 16:52] LABS: BUN/Creatinine Ratio 35 (6-26); Blood Urea Nitrogen 28 mg/dL (6-20); Calcium 9.2 mg/dL (8.6-10.3); Chloride 91 mEq/L (98-107); Glucose 152 mg/dL (70-105); Osmolality,Calculated 308 (280-300); Potassium 5.2 mEq/L (3.5-5.1); Sodium 145 mEq/L (136-145); eGFR For African Americans > 60 (> 60); eGFR For Non-African Americans > 60 (> 60)
[2018-01-03] MEDS ORDERED: Furosemide 40 MG/4 ML VIAL IVP SCH (17:00)
[2018-01-03] MEDS ORDERED: Ipratropium/Albuterol Neb 3 ML IH PRN (17:13)
[2018-01-03] MEDS ORDERED: Naloxone 0.4 MG/ML INJ IVP PRN (17:13)
[2018-01-03] MEDS: methylPREDNISolone 125 MG/2 ML VIAL IVP SCH ×2 (17:39→23:36)
[2018-01-03] MEDS ORDERED: methylPREDNISolone 125 MG/2 ML VIAL IVP SCH (18:00)
[2018-01-03 19:43] LABS: Carbon Dioxide > 45 mEq/L (23-29)
[2018-01-03 20:16] LABS: ABG Base Excess 24 mEq/L (-2 to 3); ABG HCO3 57 mEq/L (21-27); ABG Oxygen Saturation 96 % (95-98); ABG PCO2 118 mmHg (35-45); ABG PH 7.29 pH Units (7.32-7.45); ABG PO2 106 mmHg (85-104); ABG TCO2 61 mEq/L (20-26); Blood Gas Modality NIV; Blood Gas Respiration Rate 12; Blood Gas VT 550 cc
[2018-01-03 22:43] LABS: BUN/Creatinine Ratio 38 (6-26); Blood Urea Nitrogen 30 mg/dL (6-20); Calcium 9.2 mg/dL (8.6-10.3); Carbon Dioxide > 45 mEq/L (23-29); Chloride 91 mEq/L (98-107); Glucose 159 mg/dL (70-105); Magnesium 2.6 mg/dL (1.6-2.6); Osmolality,Calculated 308 (280-300); Potassium 4.9 mEq/L (3.5-5.1); Sodium 144 mEq/L (136-145); eGFR For African Americans > 60 (> 60); eGFR For Non-African Americans > 60 (> 60)
[2018-01-03 23:18] LABS: ABG Base Excess 23 mEq/L (-2 to 3); ABG HCO3 57 mEq/L (21-27); ABG Oxygen Saturation 96 % (95-98); ABG PCO2 132 mmHg (35-45); ABG PH 7.25 pH Units (7.32-7.45); ABG PO2 108 mmHg (85-104); ABG TCO2 61 mEq/L (20-26); Blood Gas Respiration Rate 16; Blood Gas VT 550 cc
--- NOTE | 2018-01-03 23:38 | Event Note ---
Date of Encounter: 01/03/18 Time of Encounter: 23:30 Report by WATER OPERATOR that pt has critical ABG result. Pt has PCO2 ranged from 113 to 139 with PT 7.25 to 7.30. I saw and examined pt bedside. Pt is awake. alert, oriented x3. Lungs are clear , no wheezing. Review his old chart, pt has chronic CO2 retention with PCO2 generally at arround 100 with PH arround 7.3. Most likely due to hypoventilation which is caused by morbid obesity. Pt has home BiPAP but he said he does not use it all the time. Currently pt tolerate BiPAP well. Will cont BiPAP, check pt mental status every 2 hours. If mentally getting worse, will consider repeat ABG or even intubate pt. Management plan discussed with pt, RN and WATER OPERATOR. Pt agree with the plan.
[2018-01-04] MEDS: Ipratropium/Albuterol Neb 3 ML IH SCH ×4 (04:10→23:10)
[2018-01-04 04:11] LABS: ABG Base Excess 22 mEq/L (-2 to 3); ABG HCO3 55 mEq/L (21-27); ABG Oxygen Saturation 95 % (95-98); ABG PCO2 106 mmHg (35-45); ABG PH 7.32 pH Units (7.32-7.45); ABG PO2 88 mmHg (85-104); ABG TCO2 58 mEq/L (20-26); Blood Gas Respiration Rate 50; Blood Gas VT 600 cc
[2018-01-04] MEDS: methylPREDNISolone 125 MG/2 ML VIAL IVP SCH ×3 (06:07→16:33)
[2018-01-04 06:28] LABS: BUN/Creatinine Ratio 40 (6-26); Blood Urea Nitrogen 28 mg/dL (6-20); Calcium 9.1 mg/dL (8.6-10.3); Carbon Dioxide > 45 mEq/L (23-29); Chloride 92 mEq/L (98-107); Glucose 154 mg/dL (70-105); Osmolality,Calculated 307 (280-300); Potassium 4.4 mEq/L (3.5-5.1); Sodium 144 mEq/L (136-145); eGFR For African Americans > 60 (> 60); eGFR For Non-African Americans > 60 (> 60)
--- NOTE | 2018-01-04 06:51 | Pulmonology Progress Note ---
Date of Encounter: 01/04/18 Time of Encounter: 06:50 Assessment and Plan (1) Acute on chronic respiratory failure with hypercapnia Current Visit: No Status: Acute Gen. improvement with continuous noninvasive ventilation. He is tolerating AVAPS mode. Recommend 16-18 hours of noninvasive ventilation today with breaks for sips of liquids to nasal cannula O2 as tolerated We will try to get the patient out of bed today and sitting up in the chair as possible. Treatment of the underlying cause which is a combination of COPD exacerbation and hydrostatic pulmonary edema Long-term prognosis is poor given underlying noncompliance with noninvasive ventilation Are not ideal situation tracheostomy in this patient may prove to be the definitive treatment (2) Acute exacerbation of chronic obstructive airways disease Current Visit: No Status: Suspected Continue IV steroids today can likely transition to oral formulation in the next 24 hours Continue schedule bronchodilators (3) Hypoventilation associated with obesity syndrome Current Visit: No Status: Chronic Weight loss is imperative for his overall prognosis (4) Acute heart failure with normal ejection fraction Current Visit: No Status: Acute We will continue aggressive loop diuretic diuresis today. Daily monitoring of serum creatinine (5) Metabolic alkalosis Current Visit: Yes Status: Acute He was given a dose of Diamox yesterday. Chloride remains low potassium within normal limits we will continue to monitor now (6) GAVIN (obstructive sleep apnea) Current Visit: No Status: Chronic He will need continued use of positive airway pressure support while sleeping Recommend transfer to stepdown for ongoing care Subjective Principal diagnosis: Respiratory Failure Interval history: Patient was transferred to the ICU overnight and he underwent a brisk loop diuretic diuresis. Repeat ABGs show encouraging trend. The patient is much more awake today complaining of his is that he would like something to drink. Otherwise remains hemodynamically stable Objective PUL Vital signs: Last Vital Signs Temp 98.7 F 01/04/18 04:00 Pulse 70 01/04/18 06:00 Resp 22 01/04/18 06:00 BP 126/70 01/04/18 06:00 Pulse Ox 96 01/04/18 06:00 General appearance: no acute distress Eyes: nonicteric Neck: supple Effort: normal Auscultation: bilateral: diminished breath sounds, rales Cardiovascular: regular rate and rhythm Gastrointestinal: normoactive bowel sounds, soft, non-tender Extremities: edema Musculoskeletal: no deformities normal mental status, non-focal exam mood appropriate Ventilator Settings Ventilator Settings: Ventilator Settings, Last 8 Hours Ventilator Tidal Volume 600 Setting Ventilator Respiratory Rate 20 Setting Results - Laboratory Findings CBC and BMP: 01/03/18 00:16 01/04/18 05:32 ABG ABG pH 7.32 pH Units (7.32-7.45) 01/04/18 04:02 ABG pCO2 106 mmHg (35-45) H* D 01/04/18 04:02 ABG pO2 88 mmHg (85-104) 01/04/18 04:02 ABG O2 Saturation 95 % (95-98) 01/04/18 04:02 PT/INR, D-dimer PT 28.5 Seconds (9.4-12.1) H 01/03/18 00:16 D-Dimer < 215 ng/mLFEU (0-500) 01/03/18 00:16 Abnormal lab findings: Abnormal lab results Hgb 11.0 g/dL (12.9-16.9) L 01/03/18 00:16 MCH 25.2 pg (28.0-33.3) L 01/03/18 00:16 MCHC 27.8 g/dL (31.6-35.5) L 01/03/18 00:16 RDW 15.6 % (11.5-14.5) H 01/03/18 00:16 Neutrophils # 9.1 K/mcL (1.6-8.9) H 01/03/18 00:16 Lymphocytes # 0.4 K/mcL (0.6-4.6) L 01/03/18 00:16 Nucleated RBCs/100 WBC 0.3 /100 WBC (0) H 01/03/18 00:16 Hypochromasia Present (Not Present) A 01/03/18 00:16 PT 28.5 Seconds (9.4-12.1) H 01/03/18 00:16 ABG pCO2 106 mmHg (35-45) H* D 01/04/18 04:02 ABG HCO3 55 mEq/L (21-27) H 01/04/18 04:02 ABG Total CO2 58 mEq/L (20-26) H 01/04/18 04:02 ABG Base Excess 22 mEq/L (-2 to 3) H 01/04/18 04:02 VBG pH 7.29 pH Units (7.32-7.42) L 01/03/18 01:07 VBG pCO2 110 mmHg (41-51) H* 01/03/18 01:07 VBG pO2 144 mmHg (25-50) H 01/03/18 01:07 VBG HCO3 53 mEq/L (21-27) H 01/03/18 01:07 Chloride 92 mEq/L (98-107) L 01/04/18 05:32 Carbon Dioxide > 45 mEq/L (23-29) H* 01/04/18 05:32 BUN 28 mg/dL (6-20) H 01/04/18 05:32 BUN/Creatinine Ratio 40 (6-26) H 01/04/18 05:32 Glucose 154 mg/dL (70-105) H 01/04/18 05:32 POC Glucose 138 mg/dL (70-99) H 01/04/18 06:01 Calculated Osmolality 307 (280-300) H 01/04/18 05:32 - Clinical Findings Intake & Output: Intake & Output 01/03/18 01/03/18 01/04/18 15:59 23:59 07:59 Output Total 700 / 700 1610 / 1610 Balance -700 / -700 -1610 / -1610 Weight 191.5 kg 190.693 kg Consult Discharge Plan - Plan Referrals: NONE,PCP [Primary Care Provider] -
[2018-01-04] MEDS ORDERED: Furosemide 40 MG/4 ML VIAL IVP ONE (07:07)
--- NOTE | 2018-01-04 07:52 | Internal Med Progress Note ---
<Sherley Bethea N - Last Filed: 01/04/18 16:30> Date of Encounter: 01/04/18 Time of Encounter: 16:07 - Assessment and plan (1) Acute on chronic respiratory failure with hypercapnia Current Visit: No Status: Acute Assessment and plan: Clinically, much improved from yesterday. Continue NPO status and ventilation per pulmonology recommendation. Order placed for patient transfer to step-down once a bed becomes available. ABG shows correction of acidosis, though pCO2 remains elevated. Will continue to monitor closely with pulmonology assistance. (2) Acute exacerbation of chronic obstructive airways disease Current Visit: No Status: Suspected Assessment and plan: Continued IV steroids and scheduled bronchodilator administration. Will begin decreasing IV steroids tomorrow. (3) CHF (congestive heart failure) Current Visit: No Status: Chronic Assessment and plan: Continued diuresis today with close monitoring of kidney function. Qualifiers: Heart failure type: unspecified Heart failure chronicity: acute on chronic Qualified Code(s): I50.9 - Heart failure, unspecified (4) Atrial fibrillation Current Visit: No Status: Chronic Assessment and plan: Continue current management. EKG ordered to assess QTc considering patient's current medications. Qualifiers: Atrial fibrillation type: chronic Qualified Code(s): I48.2 - Chronic atrial fibrillation (5) HLD (hyperlipidemia) Current Visit: No Status: Chronic Assessment and plan: Continue medication. Qualifiers: Hyperlipidemia type: unspecified Qualified Code(s): E78.5 - Hyperlipidemia , unspecified (6) Diabetes Current Visit: No Status: Chronic Assessment and plan: Patient remains NPO at this time. Will continue blood glucose monitoring. Will consider nutrition interventions tomorrow if it appears that the patient will remain NPO for an extended period of time; however, it is likely that he will be able to resume a regular diet soon if he continues to improve. Qualifiers: Diabetes mellitus type: type 2 Diabetes mellitus exterminator helper insulin use: with chcf use Diabetes mellitus complication status: with hyperglycemia Qualified Code(s): E11.65 - Type 2 diabetes mellitus with hyperglycemia; Z79.4 - exterminator helper (current) use of insulin (7) Depression Current Visit: No Status: Chronic Assessment and plan: Continue home medication therapy. Qualifiers: Depression Type: unspecified Qualified Code(s): F32.9 - Major depressive disorder, single episode, unspecified (8) Urinary retention Current Visit: Yes Status: Acute Assessment and plan: Continue xiong catheter throughout patient diuresis. Will reassess need for catheter upon completion of diuresis. - Time Spent With Patient Total time spent is greater than 50% in coordination of care (as documented) at patient's floor/unit and/or counseling patient: - Subjective Interval history: Mr. Rubalcava is much more alert today and is sitting in bed comfortably. He is conversational and reports that he does feel more clear-headed today. He is tolerating short breaks from ventilation with nasal canula in place. He denies any concerns at this time. - Constitutional Vitals: Temp Pulse Resp BP Pulse Ox 98.7 F 70 22 126/70 96 01/04/18 04:00 01/04/18 06:00 01/04/18 06:00 01/04/18 06:00 01/04/18 06:00 Exam: Patient is lying in bed sipping water. He appears to be comfortable and is conversant today. - Head Additional comments: Atraumatic and normocephalic. - Respiratory Additional comments: Distant breath sounds bilaterally with occasional wheezes. - Cardiovascular Additional comments: Distant heart sounds. Regular rate and rhythm. - Extremities Exam Additional comments: Bilateral dependent edema in lower extremities. Discoloration of anterior surface of lower legs present. - Psychiatric Additional comments: Patient is much less somnolent today and appears to have a normal affect. Internal Medicine: Result - Labs CBC & Chem 7: 01/03/18 00:16 01/04/18 05:32 Labs: BMP 01/03/18 01/03/18 01/04/18 16:15 21:59 05:32 Sodium 145 144 144 Potassium 5.2 H 4.9 4.4 Chloride 91 L 91 L 92 L Carbon Dioxide > 45 H* > 45 H* > 45 H* BUN 28 H 30 H 28 H Creatinine 0.79 0.79 0.70 Glucose 152 H 159 H 154 H Calcium 9.2 9.2 9.1 - ABG Interpretation ABG results: ABG ABG pH 7.32 pH Units (7.32-7.45) 01/04/18 04:02 ABG pCO2 106 mmHg (35-45) H* D 01/04/18 04:02 ABG pO2 88 mmHg (85-104) 01/04/18 04:02 ABG O2 Saturation 95 % (95-98) 01/04/18 04:02 PT/INR, D-dimer PT 28.5 Seconds (9.4-12.1) H 01/03/18 00:16 D-Dimer < 215 ng/mLFEU (0-500) 01/03/18 00:16 Consult Discharge Plan - Plan Referrals: NONE,PCP [Primary Care Provider] - <Jarek Bennett - Last Filed: 01/04/18 19:26> Date of Encounter: 01/04/18 - Assessment and plan (1) Acute on chronic respiratory failure with hypercapnia Current Visit: No Status: Acute (2) Acute exacerbation of chronic obstructive airways disease Current Visit: No Status: Suspected (3) CHF (congestive heart failure) Current Visit: No Status: Chronic Qualifiers: Heart failure type: diastolic Heart failure chronicity: acute on chronic Qualified Code(s): I50.33 - Acute on chronic diastolic (congestive) heart failure (4) HLD (hyperlipidemia) Current Visit: No Status: Chronic Qualifiers: Hyperlipidemia type: mixed hyperlipidemia Qualified Code(s): E78.2 - Mixed hyperlipidemia (5) Atrial fibrillation Current Visit: No Status: Chronic Qualifiers: Atrial fibrillation type: chronic Qualified Code(s): I48.2 - Chronic atrial fibrillation (6) Depression Current Visit: No Status: Chronic Qualifiers: Depression Type: unspecified Qualified Code(s): F32.9 - Major depressive disorder, single episode, unspecified (7) Diabetes Current Visit: No Status: Chronic Qualifiers: Diabetes mellitus type: type 2 Diabetes mellitus exterminator helper insulin use: with exterminator helper use Diabetes mellitus complication status: with hyperglycemia Qualified Code(s): E11.65 - Type 2 diabetes mellitus with hyperglycemia; Z79.4 - MCFP (current) use of insulin (8) Urinary retention Current Visit: Yes Status: Acute - Time Spent With Patient Total time spent is greater than 50% in coordination of care (as documented) at patient's floor/unit and/or counseling patient: - Constitutional Vitals: Temp Pulse Resp BP Pulse Ox 98.2 F 71 16 132/72 95 01/04/18 16:00 01/04/18 16:00 01/04/18 17:35 01/04/18 16:00 01/04/18 17:35 Internal Medicine: Result - Labs CBC & Chem 7: 01/03/18 00:16 01/04/18 15:31 Labs: BMP 01/03/18 01/03/18 01/04/18 16:15 21:59 05:32 Sodium 144 144 Potassium 4.9 4.4 Chloride 91 L 92 L Carbon Dioxide > 45 H* > 45 H* > 45 H* BUN 30 H 28 H Creatinine 0.79 0.70 Glucose 159 H 154 H Calcium 9.2 9.1 01/04/18 15:31 Sodium 142 Potassium 4.2 Chloride 89 L Carbon Dioxide > 45 H* BUN 29 H Creatinine 0.76 Glucose 190 H Calcium 9.4 - ABG Interpretation ABG results: ABG ABG pH 7.32 pH Units (7.32-7.45) 01/04/18 04:02 ABG pCO2 106 mmHg (35-45) H* D 01/04/18 04:02 ABG pO2 88 mmHg (85-104) 01/04/18 04:02 ABG O2 Saturation 95 % (95-98) 01/04/18 04:02 PT/INR, D-dimer PT 28.0 Seconds (9.4-12.1) H 01/04/18 10:39 D-Dimer < 215 ng/mLFEU (0-500) 01/03/18 00:16 - Attending Attestation I examined this patient and my medical decision-making was reviewed with the Resident Physician on 01/04/18. I agree with the documented findings, disposition and treatment plan as described except to the extent set forth below. Mr Rubalcava is currently admitted for acute resp failure. He remains moderate to high risk due to potential for worsening clinical status. Mr Rubalcava is more alert today. No fever or chills. Some cough. No GI issues. Exam alert. comfortable Mucus membranes dry Heart distant Wheeze heard Abd soft I/P 1. Resp failure 2. GAVIN Further diagnoses and plan as above.
[2018-01-04] MEDS ORDERED: Furosemide 40 MG/4 ML VIAL IVP SCH (08:00)
[2018-01-04] MEDS: *HR* Heparin 5,000 UNIT/ML VIAL SQ SCH ×2 (08:39→16:33)
[2018-01-04] MEDS ORDERED: Azithromycin 500 MG in D5% in Water 250 ML IVPB SCH (09:00)
[2018-01-04] MEDS ORDERED: *HR* Amiodarone 200 MG TABLET PO SCH (09:00)
[2018-01-04 11:10] LABS: INR 2.5
[2018-01-04] MEDS: Budesonide/Formoterol 80/4.5 MDI IH SCH ×2 (11:12→23:10)
[2018-01-04] MEDS ORDERED: Naloxone 0.4 MG/ML INJ IVP PRN (11:57)
[2018-01-04] MEDS ORDERED: Ipratropium/Albuterol Neb 3 ML IH PRN (11:57)
[2018-01-04] MEDS ORDERED: Albuterol 2.5 MG/3 ML NEBULIZER IH PRN (14:05)
[2018-01-04] MEDS ORDERED: NON-FORMULARY MEDICATION 1 EACH EACH (Oxygen [Oxygen] 4 L) IH SCH (14:15)
[2018-01-04] MEDS ORDERED: Ipratropium/Albuterol Neb 3 ML IH SCH (17:00)
[2018-01-04 17:16] LABS: BUN/Creatinine Ratio 38 (6-26); Blood Urea Nitrogen 29 mg/dL (6-20); Calcium 9.4 mg/dL (8.6-10.3); Chloride 89 mEq/L (98-107); Glucose 190 mg/dL (70-105); Magnesium 2.5 mg/dL (1.6-2.6); Osmolality,Calculated 305 (280-300); Potassium 4.2 mEq/L (3.5-5.1); Sodium 142 mEq/L (136-145); eGFR For African Americans > 60 (> 60); eGFR For Non-African Americans > 60 (> 60)
[2018-01-04] MEDS ORDERED: *HR* Warfarin 4 MG TABLET PO SCH (18:00)
[2018-01-04 18:50] LABS: Carbon Dioxide > 45 mEq/L (23-29)
[2018-01-04] MEDS: Fluticasone Propionate Nasal 50 MCG/SPRAY BOTTLE NS SCH (19:44)
[2018-01-04] MEDS ORDERED: NON-FORMULARY MEDICATION 1 EACH EACH (Fluticasone/Salmeterol [Advair Hfa 45-21 Mcg Inhaler IH SCH (21:00)
[2018-01-05] MEDS: *HR* Heparin 5,000 UNIT/ML VIAL SQ SCH (00:15)
[2018-01-05] MEDS: methylPREDNISolone 125 MG/2 ML VIAL IVP SCH ×2 (00:15→05:43)
[2018-01-05] MEDS: Ipratropium/Albuterol Neb 3 ML IH SCH ×4 (04:28→22:28)
--- NOTE | 2018-01-05 08:34 | Pulmonology Progress Note ---
Date of Encounter: 01/05/18 Time of Encounter: 08:26 Assessment and Plan (1) Acute on chronic respiratory failure with hypercapnia Current Visit: No Status: Acute Gen. improvement with continuous noninvasive ventilation. He is tolerating AVAPS mode. Recommend 12 hours of noninvasive ventilation today with breaks for sips of liquids to nasal cannula O2 as tolerated We will try to get the patient out of bed today and sitting up in the chair as possible. Treatment of the underlying cause which is a combination of COPD exacerbation and hydrostatic pulmonary edema Long-term prognosis is poor given underlying noncompliance with noninvasive ventilation Are not ideal situation tracheostomy in this patient may prove to be the definitive treatment Can f/u in [facility] for this (2) Acute exacerbation of chronic obstructive airways disease Current Visit: No Status: Suspected Continue IV steroids today can likely transition to oral formulation in the next 24 hours Continue schedule bronchodilators (3) Hypoventilation associated with obesity syndrome Current Visit: No Status: Chronic Weight loss is imperative for his overall prognosis (4) Acute heart failure with normal ejection fraction Current Visit: No Status: Acute Serum Creatinine pending along with electrolytes. Cont Diuresis pending results. (5) Metabolic alkalosis Current Visit: Yes Status: Acute He was given a dose of Diamox yesterday. Chloride remains low potassium within normal limits we will continue to monitor now (6) GAVIN (obstructive sleep apnea) Current Visit: No Status: Chronic He will need continued use of positive airway pressure support while sleeping Recommend transfer to stepdown for ongoing care Subjective Principal diagnosis: Respiratory Failure Interval history: Much more awake today says he is feeling close to baseline and he is very hungry and wanting to eat. His had a brisk diuresis over last 48 hours Objective PUL Vital signs: Last Vital Signs Temp 97.9 F 01/05/18 07:53 Pulse 69 01/05/18 08:00 Resp 24 01/05/18 08:00 BP 153/87 01/05/18 08:00 Pulse Ox 97 01/05/18 08:00 General appearance: no acute distress Eyes: nonicteric ENT: oropharynx moist Neck: JVD Auscultation: bilateral: diminished breath sounds Cardiovascular: regular rate and rhythm Gastrointestinal: normoactive bowel sounds Extremities: no cyanosis, pink and warm, no ischemia or petechiae, edema Musculoskeletal: no deformities normal mental status, non-focal exam mood appropriate Results - Laboratory Findings CBC and BMP: 01/03/18 00:16 01/04/18 15:31 ABG ABG pH 7.32 pH Units (7.32-7.45) 01/04/18 04:02 ABG pCO2 106 mmHg (35-45) H* D 01/04/18 04:02 ABG pO2 88 mmHg (85-104) 01/04/18 04:02 ABG O2 Saturation 95 % (95-98) 01/04/18 04:02 PT/INR, D-dimer PT 28.0 Seconds (9.4-12.1) H 01/04/18 10:39 D-Dimer < 215 ng/mLFEU (0-500) 01/03/18 00:16 Abnormal lab findings: Abnormal lab results Hgb 11.0 g/dL (12.9-16.9) L 01/03/18 00:16 MCH 25.2 pg (28.0-33.3) L 01/03/18 00:16 MCHC 27.8 g/dL (31.6-35.5) L 01/03/18 00:16 RDW 15.6 % (11.5-14.5) H 01/03/18 00:16 Neutrophils # 9.1 K/mcL (1.6-8.9) H 01/03/18 00:16 Lymphocytes # 0.4 K/mcL (0.6-4.6) L 01/03/18 00:16 Nucleated RBCs/100 WBC 0.3 /100 WBC (0) H 01/03/18 00:16 Hypochromasia Present (Not Present) A 01/03/18 00:16 PT 28.0 Seconds (9.4-12.1) H 01/04/18 10:39 ABG pCO2 106 mmHg (35-45) H* D 01/04/18 04:02 ABG HCO3 55 mEq/L (21-27) H 01/04/18 04:02 ABG Total CO2 58 mEq/L (20-26) H 01/04/18 04:02 ABG Base Excess 22 mEq/L (-2 to 3) H 01/04/18 04:02 VBG pH 7.29 pH Units (7.32-7.42) L 01/03/18 01:07 VBG pCO2 110 mmHg (41-51) H* 01/03/18 01:07 VBG pO2 144 mmHg (25-50) H 01/03/18 01:07 VBG HCO3 53 mEq/L (21-27) H 01/03/18 01:07 Chloride 89 mEq/L (98-107) L 01/04/18 15:31 Carbon Dioxide > 45 mEq/L (23-29) H* 01/04/18 15:31 BUN 29 mg/dL (6-20) H 01/04/18 15:31 BUN/Creatinine Ratio 38 (6-26) H 01/04/18 15:31 Glucose 190 mg/dL (70-105) H 01/04/18 15:31 POC Glucose 138 mg/dL (70-99) H 01/04/18 06:01 Calculated Osmolality 305 (280-300) H 01/04/18 15:31 - Clinical Findings Intake & Output: Intake & Output 01/04/18 01/05/18 01/05/18 23:59 07:59 15:59 Output Total 775 / 775 875 / 875 Balance -775 / -775 -875 / -875 Weight 197.2 kg Consult Discharge Plan - Plan Referrals: NONE,PCP [Primary Care Provider] -
--- NOTE | 2018-01-05 08:47 | Internal Med Progress Note ---
<Jarek Bennett - Last Filed: 01/05/18 18:48> Date of Encounter: 01/05/18 - Assessment and plan (1) Acute on chronic respiratory failure with hypercapnia Current Visit: No Status: Acute (2) Acute exacerbation of chronic obstructive airways disease Current Visit: No Status: Suspected (3) CHF (congestive heart failure) Current Visit: No Status: Chronic Qualifiers: Heart failure type: diastolic Heart failure chronicity: acute on chronic Qualified Code(s): I50.33 - Acute on chronic diastolic (congestive) heart failure (4) HLD (hyperlipidemia) Current Visit: No Status: Chronic Qualifiers: Hyperlipidemia type: mixed hyperlipidemia Qualified Code(s): E78.2 - Mixed hyperlipidemia (5) Atrial fibrillation Current Visit: No Status: Chronic Qualifiers: Atrial fibrillation type: chronic Qualified Code(s): I48.2 - Chronic atrial fibrillation (6) Depression Current Visit: No Status: Chronic Qualifiers: Depression Type: unspecified Qualified Code(s): F32.9 - Major depressive disorder, single episode, unspecified (7) Diabetes Current Visit: No Status: Chronic Qualifiers: Diabetes mellitus type: type 2 Diabetes mellitus long-term insulin use: with ferry terminal agent use Diabetes mellitus complication status: with hyperglycemia Qualified Code(s): E11.65 - Type 2 diabetes mellitus with hyperglycemia; Z79.4 - long-term (current) use of insulin (8) Urinary retention Current Visit: Yes Status: Acute - Time Spent With Patient Total time spent is greater than 50% in coordination of care (as documented) at patient's floor/unit and/or counseling patient: - Constitutional Vitals: Temp Pulse Resp BP Pulse Ox 98.2 F 79 21 134/89 91 01/05/18 16:11 01/05/18 16:11 01/05/18 16:11 01/05/18 16:11 01/05/18 16:11 Internal Medicine: Result - Labs CBC & Chem 7: 01/05/18 08:57 01/05/18 08:57 Labs: Short CBC 01/05/18 Range/Units 08:57 WBC 8.8 (4.3-11.1) K/mcL Hgb 11.2 L (12.9-16.9) g/dL Hct 40.2 (37.5-50.1) % Plt Count 240 (140-400) K/mcL Neutrophils # 8.1 (1.6-8.9) K/mcL BMP 01/04/18 01/05/18 15:31 08:57 Sodium 142 Potassium 4.2 Chloride 91 L Carbon Dioxide > 45 H* 47 H* BUN 29 H Creatinine 0.63 L Glucose 157 H Calcium 9.2 - ABG Interpretation ABG results: ABG ABG pH 7.32 pH Units (7.32-7.45) 01/04/18 04:02 ABG pCO2 106 mmHg (35-45) H* D 01/04/18 04:02 ABG pO2 88 mmHg (85-104) 01/04/18 04:02 ABG O2 Saturation 95 % (95-98) 01/04/18 04:02 PT/INR, D-dimer PT 39.5 Seconds (9.4-12.1) H 01/05/18 08:57 D-Dimer < 215 ng/mLFEU (0-500) 01/03/18 00:16 Consult Discharge Plan - Plan Referrals: NONE,PCP [Primary Care Provider] - - Attending Attestation I examined this patient and my medical decision-making was reviewed with the Resident Physician on 01/05/18. I agree with the documented findings, disposition and treatment plan as described except to the extent set forth below. Mr Rubalcava is currently admitted for acute on chronic resp failure. He remains moderate to high risk due to potential for worsening clinical status. Mr Rubalcava is alert. He denies issues. He needs to be encouraged to wear bipap. He removes it a lot. No fever or chills. No GI issues. Exam alert Comfortable Mucus membranes dry Bipap on at this time Heart distant No wheeze currently Abd soft I/P 1. Resp failure 2. COPD Further diagnoses and plan as above. <Sherley Bethea N - Last Filed: 01/05/18 19:45> Date of Encounter: 01/05/18 Time of Encounter: 08:47 - Assessment and plan (1) Acute on chronic respiratory failure with hypercapnia Current Visit: No Status: Acute Assessment and plan: Improving clinically. Management per pulmonology recommendations. (2) Acute exacerbation of chronic obstructive airways disease Current Visit: No Status: Suspected Assessment and plan: Patient is currently on BiPAP approximately 12 hours QD. Decreased IV steroids to 40mg Q8H. Management per pulmonology recommendations. (3) CHF (congestive heart failure) Current Visit: No Status: Chronic Assessment and plan: Continued diuresis today with renal function monitoring. Qualifiers: Heart failure type: diastolic Heart failure chronicity: acute on chronic Qualified Code(s): I50.33 - Acute on chronic diastolic (congestive) heart failure (4) HLD (hyperlipidemia) Current Visit: No Status: Chronic Assessment and plan: Continue current medication. Qualifiers: Hyperlipidemia type: mixed hyperlipidemia Qualified Code(s): E78.2 - Mixed hyperlipidemia (5) Atrial fibrillation Current Visit: No Status: Chronic Assessment and plan: Continue current management. Qualifiers: Atrial fibrillation type: chronic Qualified Code(s): I48.2 - Chronic atrial fibrillation (6) Diabetes Current Visit: No Status: Chronic Qualifiers: Diabetes mellitus type: type 2 Diabetes mellitus long-term insulin use: with long-term use Diabetes mellitus complication status: with hyperglycemia Qualified Code(s): E11.65 - Type 2 diabetes mellitus with hyperglycemia; Z79.4 - middle or intermediate school principal (current) use of insulin (7) Urinary retention Current Visit: Yes Status: Acute Assessment and plan: Consider removal of catheter tomorrow depending on urine output with plan to reassess for retention following. - Time Spent With Patient Total time spent is greater than 50% in coordination of care (as documented) at patient's floor/unit and/or counseling patient: - Subjective Interval history: Mr. Rubalcava is resting in bed with BiPAP in place. He rouses easily and is interactive. He denies any new complaints and voices continued improvement in breathing. - Constitutional Vitals: Temp Pulse Resp BP Pulse Ox 97.9 F 69 24 153/87 97 01/05/18 07:53 01/05/18 08:00 01/05/18 08:00 01/05/18 08:00 01/05/18 08:00 Exam: Patient is resting in bed comfortably in no acute distress. He answers questions appropriately. - Head Additional comments: Atraumatic and normocephalic. BiPAP currently in place. - Respiratory Additional comments: Patient currently on BiPAP. Lungs clear with occasional harsh sounds. - Cardiovascular Additional comments: Distant heart sounds. Regular rate and rhythm, with no murmurs, rubs, or gallops. - Neurological Exam Additional comments: Patient responds appropriately and moves all extremities spontaneously. Internal Medicine: Result - Labs CBC & Chem 7: 01/05/18 08:57 01/05/18 08:57 Labs: BMP 01/04/18 15:31 Sodium 142 Potassium 4.2 Chloride 89 L Carbon Dioxide > 45 H* BUN 29 H Creatinine 0.76 Glucose 190 H Calcium 9.4 - ABG Interpretation ABG results: ABG ABG pH 7.32 pH Units (7.32-7.45) 01/04/18 04:02 ABG pCO2 106 mmHg (35-45) H* D 01/04/18 04:02 ABG pO2 88 mmHg (85-104) 01/04/18 04:02 ABG O2 Saturation 95 % (95-98) 01/04/18 04:02 PT/INR, D-dimer PT 28.0 Seconds (9.4-12.1) H 01/04/18 10:39 D-Dimer < 215 ng/mLFEU (0-500) 01/03/18 00:16
[2018-01-05] MEDS: *HR* Amiodarone 200 MG TABLET PO SCH (08:54)
[2018-01-05] MEDS: Fluticasone Propionate Nasal 50 MCG/SPRAY BOTTLE NS SCH ×2 (08:54→21:32)
[2018-01-05] MEDS: Furosemide 40 MG TABLET PO SCH ×2 (08:54→16:18)
[2018-01-05] MEDS: Multivit/Ca/Min/Fe/FA 1 TAB TABLET PO SCH (08:54)
[2018-01-05 09:33] LABS: Basophils % 0.1 %; Hematocrit 40.2 % (37.5-50.1); Hemoglobin 11.2 g/dL (12.9-16.9); Immature Granulocytes % 0.6 % (0-4); Lymphocytes # 0.4 K/mcL (0.6-4.6); Lymphocytes % 4.2 %; Mean Corpuscular HGB Conc 27.9 g/dL (31.6-35.5); Mean Corpuscular Hemoglobin 24.6 pg (28.0-33.3); Mean Corpuscular Volume 88.4 fL (83.0-100.0); Mean Platelet Volume 9.8 fL (9.4-12.4); Monocytes # 0.3 K/mcL (0.0-1.3); Monocytes % 3.3 %; Neutrophils # 8.1 K/mcL (1.6-8.9); Platelet Count 240 K/mcL (140-400); Red Blood Count 4.55 M/mcL (4.19-5.50); Red Cell Distribution Width 15.2 % (11.5-14.5); Segmented Neutrophils % 91.8 %
[2018-01-05 09:38] LABS: INR 3.5; Prothrombin Time 39.5 Seconds (9.4-12.1)
[2018-01-05] MEDS: Budesonide/Formoterol 80/4.5 MDI IH SCH ×2 (09:54→22:28)
--- NOTE | 2018-01-05 09:58 | Electrocardiograph Report ---
[address] [address] Test Date: 2018-01-03 Pat Name: Jesus Rubalcava Department: 109 Room: 09 Gender: M [employer]: : 1960 Requested By: Nicolas Smiley Order Number: [id number] Reading MD: Jj Rodney Measurements Intervals [place] Rate: 73 P: 68 CT: 211 QRS: 85 QRSD: 114 T: 32 QT: 400 QTc: 426 Interpretive Statements ELECTRONIC ATRIAL PACEMAKER LOW QRS VOLTAGE IN PRECORDIAL LEADS Poor R wave progression Electronically Signed On 01-05-2018 9:57:07 EDT by Jj Rodney
[2018-01-05 09:59] LABS: Anisocytosis 1+ (Not Present); Hypochromasia Present (Not Present); Platelet Estimate Normal (Normal)
[2018-01-05 10:02] LABS: BUN/Creatinine Ratio 46 (6-26); Blood Urea Nitrogen 29 mg/dL (6-20); Calcium 9.2 mg/dL (8.6-10.3); Carbon Dioxide 47 mEq/L (23-29); Chloride 91 mEq/L (98-107); Glucose 157 mg/dL (70-105); Osmolality,Calculated 303 (280-300); Potassium 4.2 mEq/L (3.5-5.1); Sodium 142 mEq/L (136-145); eGFR For African Americans > 60 (> 60); eGFR For Non-African Americans > 60 (> 60)
[2018-01-05] MEDS: predniSONE 20 MG TABLET PO SCH (13:46)
[2018-01-05] MEDS ORDERED: MethylPREDNISolone 40 MG/ML VIAL IVP SCH (16:00)
[2018-01-05] MEDS ORDERED: Warfarin perPT PO PRN (18:00)
[2018-01-06] MEDS: Ipratropium/Albuterol Neb 3 ML IH SCH ×4 (04:01→22:34)
[2018-01-06 05:01] LABS: INR 3.3; Prothrombin Time 37.3 Seconds (9.4-12.1)
[2018-01-06 05:20] LABS: BUN/Creatinine Ratio 42 (6-26); Blood Urea Nitrogen 32 mg/dL (6-20); Calcium 9.1 mg/dL (8.6-10.3); Carbon Dioxide > 45 mEq/L (23-29); Chloride 91 mEq/L (98-107); Glucose 147 mg/dL (70-105); Osmolality,Calculated 304 (280-300); Potassium 4.1 mEq/L (3.5-5.1); Sodium 142 mEq/L (136-145); eGFR For African Americans > 60 (> 60); eGFR For Non-African Americans > 60 (> 60)
[2018-01-06] MEDS: Multivit/Ca/Min/Fe/FA 1 TAB TABLET PO SCH (08:17)
[2018-01-06] MEDS: predniSONE 20 MG TABLET PO SCH (08:17)
[2018-01-06] MEDS: *HR* Amiodarone 200 MG TABLET PO SCH (08:17)
[2018-01-06] MEDS: Furosemide 40 MG TABLET PO SCH ×2 (08:17→17:40)
[2018-01-06] MEDS: Fluticasone Propionate Nasal 50 MCG/SPRAY BOTTLE NS SCH ×2 (08:18→22:05)
[2018-01-06] MEDS: Budesonide/Formoterol 80/4.5 MDI IH SCH ×2 (10:41→22:33)
--- NOTE | 2018-01-06 11:37 | Internal Med Progress Note ---
Date of Encounter: 01/06/18 Time of Encounter: 11:35 - Assessment and plan (1) Acute exacerbation of chronic obstructive airways disease Current Visit: No Status: Suspected (2) CHF (congestive heart failure) Current Visit: No Status: Chronic Qualifiers: Heart failure type: diastolic Heart failure chronicity: acute on chronic Qualified Code(s): I50.33 - Acute on chronic diastolic (congestive) heart failure (3) HLD (hyperlipidemia) Current Visit: No Status: Chronic Qualifiers: Hyperlipidemia type: mixed hyperlipidemia Qualified Code(s): E78.2 - Mixed hyperlipidemia (4) Atrial fibrillation Current Visit: No Status: Chronic Qualifiers: Atrial fibrillation type: chronic Qualified Code(s): I48.2 - Chronic atrial fibrillation (5) Acute on chronic respiratory failure with hypercapnia Current Visit: No Status: Acute (6) Diabetes Current Visit: No Status: Chronic Qualifiers: Diabetes mellitus type: type 2 Diabetes mellitus retirement insulin use: with retirement use Diabetes mellitus complication status: with hyperglycemia Qualified Code(s): E11.65 - Type 2 diabetes mellitus with hyperglycemia; Z79.4 - nursing home (current) use of insulin (7) Urinary retention Current Visit: Yes Status: Acute - Time Spent With Patient Total time spent is greater than 50% in coordination of care (as documented) at patient's floor/unit and/or counseling patient: - Constitutional Vitals: Temp Pulse Resp BP Pulse Ox 98.4 F 73 17 161/97 98 01/06/18 07:55 01/06/18 07:55 01/06/18 07:55 01/06/18 07:55 01/06/18 07:55 General appearance: Present: A&O X 3, no acute distress, obese - Head Head exam: Present: atraumatic, normocephalic Internal Medicine: Result - Labs CBC & Chem 7: 01/05/18 08:57 01/06/18 04:35 Labs: BMP 01/06/18 04:35 Sodium 142 Potassium 4.1 Chloride 91 L Carbon Dioxide > 45 H* BUN 32 H Creatinine 0.77 Glucose 147 H Calcium 9.1 - ABG Interpretation ABG results: ABG ABG pH 7.32 pH Units (7.32-7.45) 01/04/18 04:02 ABG pCO2 106 mmHg (35-45) H* D 01/04/18 04:02 ABG pO2 88 mmHg (85-104) 01/04/18 04:02 ABG O2 Saturation 95 % (95-98) 01/04/18 04:02 PT/INR, D-dimer PT 37.3 Seconds (9.4-12.1) H 01/06/18 04:35 D-Dimer < 215 ng/mLFEU (0-500) 01/03/18 00:16 Consult Discharge Plan - Plan Referrals: NONE,PCP [Primary Care Provider] -
--- NOTE | 2018-01-06 11:43 | Internal Med Progress Note ---
Date of Encounter: 01/06/18 Time of Encounter: 10:00 - Assessment and plan (1) Acute on chronic respiratory failure with hypercapnia Current Visit: No Status: Acute Assessment and plan: Slowly improving. He needs to wear bipap at night and with naps. Will continue to treat COPD and CHF to help improve his respiratory status. (2) Acute exacerbation of chronic obstructive airways disease Current Visit: No Status: Suspected Assessment and plan: Wearing bipap with sleeping. Will taper steroids more today. (3) CHF (congestive heart failure) Current Visit: No Status: Acute Assessment and plan: Continue diuresis. Still volume overloaded. Qualifiers: Heart failure type: diastolic Heart failure chronicity: acute on chronic Qualified Code(s): I50.33 - Acute on chronic diastolic (congestive) heart failure (4) Hypertension Current Visit: Yes Status: Chronic Assessment and plan: Most likely related to chronic lung issues. Uncontrolled today. Will start medication today. Qualifiers: Hypertension type: other secondary hypertension Qualified Code(s): I15.8 - Other secondary hypertension (5) Atrial fibrillation Current Visit: No Status: Chronic Assessment and plan: Continue current management. He is not in rapid rate at this time. Qualifiers: Atrial fibrillation type: chronic Qualified Code(s): I48.2 - Chronic atrial fibrillation (6) Diabetes Current Visit: No Status: Chronic Assessment and plan: Uncontrolled. On cardiac diet. Will need add diabetic restriction as well. Continue to monitor blood sugars and cover. Qualifiers: Diabetes mellitus type: type 2 Diabetes mellitus terminal operations supervisor insulin use: with terminal operations supervisor use Diabetes mellitus complication status: with hyperglycemia Qualified Code(s): E11.65 - Type 2 diabetes mellitus with hyperglycemia; Z79.4 - halfway (current) use of insulin (7) Obesity hypoventilation syndrome Current Visit: Yes Status: Chronic Assessment and plan: Chronic issue. Needs to stay on bipap (8) HLD (hyperlipidemia) Current Visit: No Status: Chronic Assessment and plan: Continue current medication. Qualifiers: Hyperlipidemia type: mixed hyperlipidemia Qualified Code(s): E78.2 - Mixed hyperlipidemia - Time Spent With Patient Total time spent is greater than 50% in coordination of care (as documented) at patient's floor/unit and/or counseling patient: - Subjective Interval history: Mr Rubalcava is currently admitted for acute exac COPD and acute on chronic hypercarbic resp failure. He remains moderate to high risk due to potential for worsening respiratory failure. Mr Rubalcava is dozing at this time. He denies new issues. His breathing is somewhat better he feels. No fever of chills. Still with edema. Appetite fair. Says he wore his bipap last night. - Constitutional Vitals: Temp Pulse Resp BP Pulse Ox 98.4 F 73 17 161/97 98 01/06/18 07:55 01/06/18 07:55 01/06/18 07:55 01/06/18 07:55 01/06/18 07:55 General appearance: Present: A&O X 3, no acute distress - Head Head exam: Present: normocephalic - Eye Eye exam: Present: EOMI, conjuntiva pink - ENT ENT exam: Present: mucous membranes dry - Respiratory Respiratory exam: Present: decreased breath sounds. Absent: rales, rhonchi, wheezes - Cardiovascular Cardiovascular exam: Present: distant heart sounds, RRR - GI/Abdominal GI/Abdominal exam: Present: normal bowel sounds, soft. Absent: tenderness Additional comments: Obese - Extremities Exam Extremities exam: Present: warm. Absent: tenderness Additional comments: Edema bilaterally. - Neurological Exam Neurological exam: Present: alert, oriented X3 - Skin Skin exam: Present: dry, warm Internal Medicine: Result - Labs CBC & Chem 7: 01/05/18 08:57 01/06/18 04:35 Labs: BMP 01/06/18 04:35 Sodium 142 Potassium 4.1 Chloride 91 L Carbon Dioxide > 45 H* BUN 32 H Creatinine 0.77 Glucose 147 H Calcium 9.1 - ABG Interpretation ABG results: ABG ABG pH 7.32 pH Units (7.32-7.45) 01/04/18 04:02 ABG pCO2 106 mmHg (35-45) H* D 01/04/18 04:02 ABG pO2 88 mmHg (85-104) 01/04/18 04:02 ABG O2 Saturation 95 % (95-98) 01/04/18 04:02 PT/INR, D-dimer PT 37.3 Seconds (9.4-12.1) H 01/06/18 04:35 D-Dimer < 215 ng/mLFEU (0-500) 01/03/18 00:16 Consult Discharge Plan - Plan Referrals: NONE,PCP [Primary Care Provider] -
[2018-01-06] MEDS ORDERED: Dextrose Gel 15 GM/37.5 ML TUBE PO PRN ×2 (11:56)
[2018-01-06] MEDS ORDERED: D5% in Water 1,000 ML IVC PRN (11:56)
[2018-01-06] MEDS ORDERED: *HR* Dextrose 50 % in Water (Syg) 50 ML SYRINGE IVP PRN (11:56)
[2018-01-06 13:11] LABS: Estimated Average Glucose 126 mg/dl
[2018-01-06] MEDS: Valsartan 80 MG TABLET PO SCH (15:29)
[2018-01-06] MEDS: Insulin LISPRO 300 UNITS/3 ML VIAL SQ SCH ×2 (17:40→22:03)
[2018-01-07] MEDS: Ipratropium/Albuterol Neb 3 ML IH SCH ×4 (04:00→22:09)
[2018-01-07 06:37] LABS: Hematocrit 43.9 % (37.5-50.1); Hemoglobin 12.2 g/dL (12.9-16.9); Mean Corpuscular HGB Conc 27.8 g/dL (31.6-35.5); Mean Corpuscular Hemoglobin 24.8 pg (28.0-33.3); Mean Corpuscular Volume 89.4 fL (83.0-100.0); Mean Platelet Volume 9.8 fL (9.4-12.4); Platelet Count 246 K/mcL (140-400); Red Blood Count 4.91 M/mcL (4.19-5.50); Red Cell Distribution Width 15.7 % (11.5-14.5)
[2018-01-07 06:44] LABS: INR 2.5; Prothrombin Time 27.8 Seconds (9.4-12.1)
[2018-01-07 06:59] LABS: BUN/Creatinine Ratio 38 (6-26); Blood Urea Nitrogen 29 mg/dL (6-20); Carbon Dioxide > 45 mEq/L (23-29); Chloride 89 mEq/L (98-107); Glucose 100 mg/dL (70-105); Magnesium 2.4 mg/dL (1.6-2.6); Osmolality,Calculated 298 (280-300); Potassium 3.8 mEq/L (3.5-5.1); Sodium 141 mEq/L (136-145); eGFR For African Americans > 60 (> 60); eGFR For Non-African Americans > 60 (> 60)
--- NOTE | 2018-01-07 07:31 | Internal Med Progress Note ---
<Sherley Bethea N - Last Filed: 01/07/18 11:22> Date of Encounter: 01/07/18 Time of Encounter: 07:31 - Assessment and plan (1) Acute exacerbation of chronic obstructive airways disease Current Visit: No Status: Suspected Assessment and plan: 12+ hours of BiPAP with breaks for meals. Continue 40mg PO steroids. Patient is currently requiring 6L oxygen via nasal canula, with pulse ox of 89%. He will likely require an increase in the amount of home oxygen he uses upon discharge. (2) CHF (congestive heart failure) Current Visit: No Status: Acute Assessment and plan: Diuresis with lasix BID. Continue to monitor kidney function. Qualifiers: Heart failure type: diastolic Heart failure chronicity: acute on chronic Qualified Code(s): I50.33 - Acute on chronic diastolic (congestive) heart failure (3) HLD (hyperlipidemia) Current Visit: No Status: Chronic Qualifiers: Hyperlipidemia type: mixed hyperlipidemia Qualified Code(s): E78.2 - Mixed hyperlipidemia (4) Atrial fibrillation Current Visit: No Status: Chronic Qualifiers: Atrial fibrillation type: chronic Qualified Code(s): I48.2 - Chronic atrial fibrillation (5) Acute on chronic respiratory failure with hypercapnia Current Visit: No Status: Acute Assessment and plan: Patient appears improved clinically. Will continue management per pulmonology recommendation. 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 He rouses easily to voice and denies any complaints. He has been wearing BiPAP 12+ hours per day with breaks for meals. - Constitutional Vitals: Temp Pulse Resp BP Pulse Ox 98.7 F 82 22 123/69 98 01/06/18 19:31 01/07/18 00:51 01/07/18 04:00 01/07/18 00:51 01/07/18 04:00 General appearance: Present: A&O X 3, no acute distress Exam: Patient wakes easily. He answers questions appropriately and is in no acute distress. - Head Additional comments: Atraumatic and normocephalic. - Respiratory Additional comments: Decreased breath sounds. No accessory muscle use. - Cardiovascular Additional comments: Regular rate and rhythm. No murmurs, rubs, or gallops. - Extremities Exam Additional comments: No clubbing or cyanosis. Bilateral lower extremity edema present. Internal Medicine: Result - Labs CBC & Chem 7: 01/07/18 06:20 01/07/18 06:20 Labs: Short CBC 01/07/18 Range/Units 06:20 WBC 13.8 H D (4.3-11.1) K/mcL Hgb 12.2 L (12.9-16.9) g/dL Hct 43.9 (37.5-50.1) % Plt Count 246 (140-400) K/mcL BMP 01/07/18 06:20 Sodium 141 Potassium 3.8 Chloride 89 L Carbon Dioxide > 45 H* BUN 29 H Creatinine 0.76 Glucose 100 Calcium 9.0 - ABG Interpretation ABG results: ABG ABG pH 7.32 pH Units (7.32-7.45) 01/04/18 04:02 ABG pCO2 106 mmHg (35-45) H* D 01/04/18 04:02 ABG pO2 88 mmHg (85-104) 01/04/18 04:02 ABG O2 Saturation 95 % (95-98) 01/04/18 04:02 PT/INR, D-dimer PT 27.8 Seconds (9.4-12.1) H 01/07/18 06:20 D-Dimer < 215 ng/mLFEU (0-500) 01/03/18 00:16 Consult Discharge Plan - Plan Referrals: NONE,PCP [Primary Care Provider] - <Jarek Bennett - Last Filed: 01/07/18 16:31> Date of Encounter: 01/07/18 - Assessment and plan (1) Acute exacerbation of chronic obstructive airways disease Current Visit: No Status: Suspected (2) CHF (congestive heart failure) Current Visit: No Status: Acute Qualifiers: Heart failure type: diastolic Heart failure chronicity: acute on chronic Qualified Code(s): I50.33 - Acute on chronic diastolic (congestive) heart failure (3) HLD (hyperlipidemia) Current Visit: No Status: Chronic Qualifiers: Hyperlipidemia type: mixed hyperlipidemia Qualified Code(s): E78.2 - Mixed hyperlipidemia (4) Atrial fibrillation Current Visit: No Status: Chronic Qualifiers: Atrial fibrillation type: chronic Qualified Code(s): I48.2 - Chronic atrial fibrillation (5) Acute on chronic respiratory failure with hypercapnia Current Visit: No Status: Acute (6) Depression Current Visit: No Status: Chronic Qualifiers: Depression Type: unspecified Qualified Code(s): F32.9 - Major depressive disorder, single episode, unspecified (7) Diabetes Current Visit: No Status: Chronic Qualifiers: Diabetes mellitus type: type 2 Diabetes mellitus skilled nursing insulin use: with terminal manager use Diabetes mellitus complication status: with hyperglycemia Qualified Code(s): E11.65 - Type 2 diabetes mellitus with hyperglycemia; Z79.4 - lab[facility] terminal (current) use of insulin (8) Urinary retention Current Visit: Yes Status: Acute - Time Spent With Patient Total time spent is greater than 50% in coordination of care (as documented) at patient's floor/unit and/or counseling patient: - Constitutional Vitals: Temp Pulse Resp BP Pulse Ox 98.1 F 83 20 100/67 98 01/07/18 11:44 01/07/18 11:44 01/07/18 15:31 01/07/18 15:31 01/07/18 15:31 Internal Medicine: Result - Labs CBC & Chem 7: 01/07/18 06:20 01/07/18 06:20 Labs: Short CBC 01/07/18 Range/Units 06:20 WBC 13.8 H D (4.3-11.1) K/mcL Hgb 12.2 L (12.9-16.9) g/dL Hct 43.9 (37.5-50.1) % Plt Count 246 (140-400) K/mcL BMP 01/07/18 06:20 Sodium 141 Potassium 3.8 Chloride 89 L Carbon Dioxide > 45 H* BUN 29 H Creatinine 0.76 Glucose 100 Calcium 9.0 - ABG Interpretation ABG results: ABG ABG pH 7.32 pH Units (7.32-7.45) 01/04/18 04:02 ABG pCO2 106 mmHg (35-45) H* D 01/04/18 04:02 ABG pO2 88 mmHg (85-104) 01/04/18 04:02 ABG O2 Saturation 95 % (95-98) 01/04/18 04:02 PT/INR, D-dimer PT 27.8 Seconds (9.4-12.1) H 01/07/18 06:20 D-Dimer < 215 ng/mLFEU (0-500) 01/03/18 00:16 - Attending Attestation I examined this patient and my medical decision-making was reviewed with the Resident Physician on 01/07/18. I agree with the documented findings, disposition and treatment plan as described except to the extent set forth below. Mr Rubalcava is currently admitted for hypercarbic resp failure and COPD exacerbation. He remains moderate to high risk due to potential for worsening clinical and respiratory status. Mr Rubalcava has been wearing his bipap. He denies issues currently. No fever or chills. No GI issues. Exam alert Comfortable in bed - has bipap on. Mucus membranes dry Heart distant No wheeze I/P 1. COPD exac 2. Hypercarbic resp failure Further diagnoses and plan as above.
[2018-01-07] MEDS: Furosemide 40 MG TABLET PO SCH ×2 (09:23→17:10)
[2018-01-07] MEDS: Multivit/Ca/Min/Fe/FA 1 TAB TABLET PO SCH (09:23)
[2018-01-07] MEDS: Valsartan 80 MG TABLET PO SCH (09:23)
[2018-01-07] MEDS: predniSONE 20 MG TABLET PO SCH (09:23)
[2018-01-07] MEDS: *HR* Amiodarone 200 MG TABLET PO SCH (09:24)
[2018-01-07] MEDS: Budesonide/Formoterol 80/4.5 MDI IH SCH ×2 (10:34→22:08)
[2018-01-07] MEDS: Insulin LISPRO 300 UNITS/3 ML VIAL SQ SCH ×4 (12:07→22:06)
[2018-01-07] MEDS: Fluticasone Propionate Nasal 50 MCG/SPRAY BOTTLE NS SCH ×2 (12:07→22:02)
[2018-01-07] MEDS ORDERED: *HR* Warfarin 7.5 MG TABLET PO SCH (18:00)
[2018-01-08] MEDS: Ipratropium/Albuterol Neb 3 ML IH SCH ×2 (04:58→10:57)
[2018-01-08 05:24] LABS: INR 2.2; Prothrombin Time 24.4 Seconds (9.4-12.1)
--- NOTE | 2018-01-08 08:36 | Internal Med Progress Note ---
Date of Encounter: 01/08/18 Time of Encounter: 08:36 - Assessment and plan (1) Acute exacerbation of chronic obstructive airways disease Current Visit: No Status: Suspected (2) CHF (congestive heart failure) Current Visit: No Status: Acute Qualifiers: Heart failure type: diastolic Heart failure chronicity: acute on chronic Qualified Code(s): I50.33 - Acute on chronic diastolic (congestive) heart failure (3) HLD (hyperlipidemia) Current Visit: No Status: Chronic Qualifiers: Hyperlipidemia type: mixed hyperlipidemia Qualified Code(s): E78.2 - Mixed hyperlipidemia (4) Atrial fibrillation Current Visit: No Status: Chronic Qualifiers: Atrial fibrillation type: chronic Qualified Code(s): I48.2 - Chronic atrial fibrillation (5) Acute on chronic respiratory failure with hypercapnia Current Visit: No Status: Acute (6) Depression Current Visit: No Status: Chronic Qualifiers: Depression Type: unspecified Qualified Code(s): F32.9 - Major depressive disorder, single episode, unspecified (7) Diabetes Current Visit: No Status: Chronic Qualifiers: Diabetes mellitus type: type 2 Diabetes mellitus correction insulin use: with keno terminal operator use Diabetes mellitus complication status: with hyperglycemia Qualified Code(s): E11.65 - Type 2 diabetes mellitus with hyperglycemia; Z79.4 - [facility] (current) use of insulin (8) Urinary retention Current Visit: Yes Status: Acute - Time Spent With Patient Total time spent is greater than 50% in coordination of care (as documented) at patient's floor/unit and/or counseling patient: - Subjective Interval history: Patient is sleeping with nasal canula in place. He rouses easily to voice and denies any complaints. He has been wearing BiPAP 12+ hours per day with breaks for meals. - Constitutional Vitals: Temp Pulse Resp BP Pulse Ox 98 F 78 21 134/80 93 01/08/18 07:36 01/08/18 07:36 01/08/18 07:36 01/08/18 07:36 01/08/18 07:36 General appearance: Present: A&O X 3, no acute distress Internal Medicine: Result - Labs CBC & Chem 7: 01/07/18 06:20 01/07/18 06:20 - ABG Interpretation ABG results: ABG ABG pH 7.32 pH Units (7.32-7.45) 01/04/18 04:02 ABG pCO2 106 mmHg (35-45) H* D 01/04/18 04:02 ABG pO2 88 mmHg (85-104) 01/04/18 04:02 ABG O2 Saturation 95 % (95-98) 01/04/18 04:02 PT/INR, D-dimer PT 24.4 Seconds (9.4-12.1) H 01/08/18 04:57 D-Dimer < 215 ng/mLFEU (0-500) 01/03/18 00:16 Consult Discharge Plan - Plan Referrals: NONE,PCP [Primary Care Provider] -
[2018-01-08] MEDS: Insulin LISPRO 300 UNITS/3 ML VIAL SQ SCH ×2 (09:09→11:34)
[2018-01-08] MEDS: Furosemide 40 MG TABLET PO SCH (09:24)
[2018-01-08] MEDS: Valsartan 80 MG TABLET PO SCH (09:24)
[2018-01-08] MEDS: Multivit/Ca/Min/Fe/FA 1 TAB TABLET PO SCH (09:24)
[2018-01-08] MEDS: *HR* Amiodarone 200 MG TABLET PO SCH (09:24)
--- NOTE | 2018-01-08 09:24 | Discharge Summary ---
<Sherley Bethea N - Last Filed: 01/08/18 15:53> - NOTES TO OUTPATIENT PROVIDER Notes to Outpatient Provider: Patient was admitted for COPD exacerbation. He is noncompliant with use of home BiPAP. Patient required extensive ventilatory support to address respiratory acidosis. Patient was instructed to wear BiPAP at home as directed and to follow up with pulmonary and his PCP following discharge for further management. Orders not resulted at time of discharge: Pending orders 01/04/18 11:02 EKG [ECG 12 lead ECG] [ECG] Routine 01/08/18 08:34 Basic Metabolic Panel Routine CBC [Complete Blood Count] [HEME] Routine Date of Encounter: 01/08/18 Time of Encounter: 12:55 - Discharge Diagnosis (1) Acute exacerbation of chronic obstructive airways disease Priority: Primary Status: Suspected (2) CHF (congestive heart failure) Priority: Secondary Status: Acute Qualifiers: Heart failure type: diastolic Heart failure chronicity: acute on chronic Qualified Code(s): I50.33 - Acute on chronic diastolic (congestive) heart failure (3) HLD (hyperlipidemia) Priority: Secondary Status: Chronic Qualifiers: Hyperlipidemia type: mixed hyperlipidemia Qualified Code(s): E78.2 - Mixed hyperlipidemia (4) Atrial fibrillation Priority: Secondary Status: Chronic Qualifiers: Atrial fibrillation type: chronic Qualified Code(s): I48.2 - Chronic atrial fibrillation (5) Acute on chronic respiratory failure with hypercapnia Priority: Secondary Status: Acute (6) Depression Priority: Secondary Status: Chronic Qualifiers: Depression Type: unspecified Qualified Code(s): F32.9 - Major depressive disorder, single episode, unspecified (7) Diabetes Priority: Secondary Status: Chronic Qualifiers: Diabetes mellitus type: type 2 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 Rubalcava is a 57 year old male who presented to the ED complaining of SOB and increased cough with sputum production. He was admitted for this issue and put on BiPAP. He was minimally responsive on hospital day one, and presented with confusion and flat affect. Pulmonology consult was placed, and ventilator settings were adjusted. He continued to show minimal improvement in ABG, and was transferred to the ICU for closer monitoring of respiratory status. He was made NPO and placed on ABAPS ventilation. Blood gases did improve, and patient was able to be weaned to BiPAP over the next several days. He received lasix diuresis with monitoring of kidney function, which aided his respiratory symptoms. On day of discharge, patient had been weaned to approximately 12 hours of BiPAP, and was tolerating breaks with 6L oxygen via nasal canula. He was educated on the importance of wearing his BiPAP at night, and was instructed to keep close follow up care with pulmonology. Due to this COPD exacerbation, patient is currently requiring 6L supplemental oxygen via nasal canula. He was provided with a prescription for this, and instructed to follow up with pulmonology for further management. Discharge discussed with: patient, family, nurse - Time Spent with Patient Total time spent providing and/or coordinating discharge services: - Discharge Medications Prescriptions: Furosemide [Lasix] 40 mg PO BID #60 tab predniSONE [PredniSONE] 10 mg PO DAILY #19 tablet Home Medications: Atorvastatin Calcium [Lipitor] 80 mg PO DAILY 05/04/15 [History] Multivitamin/Ferrous Sulfate [One-Daily Xyamj-Fyx-Xylr Tab] 1 tab PO DAILY 05/04 [History] Potassium Chloride [Klor-Con 10] 20 meq PO DAILY 05/05/16 [History] Albuterol Neb [Proventil Neb] 2.5 mg IH Q4HR PRN 14 Days vial.neb 05/07/16 [Rx] Citalopram [CeleXA] 40 mg PO DAILY #20 tablet 05/28/16 [Rx] Oxygen 4 l IH AD 12/12/16 [History] Amiodarone [Cordarone] 200 mg PO DAILY 11/23/17 [History] Fluticasone Propionate Nasal [Flonase] 1 spr NS BID 11/23/17 [History] Ipratropium/Albuterol Neb [Duoneb] 3 ml IH QIDR 30 Days #1 11/25/17 [Rx] Fluticasone/Salmeterol [Advair Hfa 45-21 Mcg Inhaler] 1 puff IH BID 01/04/18 [ History] Warfarin [Coumadin] 8 mg PO DAILY 01/04/18 [History] Furosemide [Lasix] 40 mg PO BID #60 tab 01/08/18 [Rx] predniSONE [PredniSONE] 10 mg PO DAILY #19 tablet 01/08/18 [Rx] Allergies/Adverse Reactions: 3 Allergy/AdvReac Type Severity Reaction Status Date / Time OLIVER Inhibitors AdvReac Cough Verified 01/02/18 20:54 Date of admission: 01/02/18 22:50 Primary care physician: PCP NONE Consults: 01/03/18 15:13 Consult to Pulmonology [CONS] Routine Consulting Provider: [facility] Reason for Consult: Respiratory acidosis refractory to BiPAP Time Notified: 15:15 Call Completed: Yes Discharging clinician: Sherley Bethea Anticipated date of discharge: 01/08/18 - Constitutional Vitals: Temp Pulse Resp BP Pulse Ox 98 F 78 21 134/80 93 01/08/18 07:36 01/08/18 07:36 01/08/18 07:36 01/08/18 07:36 01/08/18 07:36 General appearance: Present: A&O X 3, no acute distress Exam: Alert and oriented. Resting comfortably in bed with nasal canula in place. Denies any complaints or concerns. - Head Additional comments: Atraumatic and normocephalic. - Respiratory Additional comments: Diffusely decreased breath sounds bilaterally. - Cardiovascular Additional comments: Regular rate and rhythm. No murmurs or rubs. - Extremities Exam Additional comments: 1-2+ pitting edema in bilateral lower extremities. Skin changes consistent with chronic venous stasis. - Patient Status Disposition: Home, Self-Care Condition: Fair Functional capacity at discharge: independent ambulation Overall status at discharge: patient is progressing back to baseline - Discharge Instructions Instructions: Chronic Obstructive Pulmonary Disease (DC) Follow Up With: NONE,PCP [Primary Care Provider] - Additional Instructions: Continue taking lasix 40mg twice per day. Continue taking oral steroids for the next week: 40mg for 3 days, then 30mg for 1 day, then 20mg for 1 day, then 10mg for 2 days. Wear BiPAP every night while sleeping. Follow up with your PCP in 3-5 days. Follow up with pulmonology as outpatient. Have blood drawn for BMP and CBC in approximately one week. Return to the emergency department if symptoms worsen or recur, or if new concerns arise. <Lili Guerrero - Last Filed: 01/08/18 16:27> Orders not resulted at time of discharge: Pending orders 01/04/18 11:02 EKG [ECG 12 lead ECG] [ECG] Routine 01/09/18 04:00 PT/INR [Prothrombin Time INR] [COAG] AM 0400 01/10/18 04:00 PT/INR [Prothrombin Time INR] [COAG] AM 0400 01/11/18 04:00 PT/INR [Prothrombin Time INR] [COAG] AM 0400 01/12/18 04:00 PT/INR [Prothrombin Time INR] [COAG] AM 0400 Date of Encounter: 01/08/18 - Discharge Diagnosis (1) Acute exacerbation of chronic obstructive airways disease Status: Suspected (2) CHF (congestive heart failure) Status: Acute Qualifiers: Heart failure type: diastolic Heart failure chronicity: acute on chronic Qualified Code(s): I50.33 - Acute on chronic diastolic (congestive) heart failure (3) HLD (hyperlipidemia) Status: Chronic Qualifiers: Hyperlipidemia type: mixed hyperlipidemia Qualified Code(s): E78.2 - Mixed hyperlipidemia (4) Atrial fibrillation Status: Chronic Qualifiers: Atrial fibrillation type: chronic Qualified Code(s): I48.2 - Chronic atrial fibrillation (5) Acute on chronic respiratory failure with hypercapnia Status: Acute (6) Depression Status: Chronic Qualifiers: Depression Type: unspecified Qualified Code(s): F32.9 - Major depressive disorder, single episode, unspecified (7) Diabetes Status: Chronic Qualifiers: Diabetes mellitus type: type 2 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 Rubalcava is a 57 year old male - Time Spent with Patient Total time spent providing and/or coordinating discharge services: Date of admission: 01/02/18 22:50 Primary care physician: PCP NONE Consults: 01/03/18 15:13 Consult to Pulmonology [CONS] Routine Consulting Provider: [facility] Reason for Consult: Respiratory acidosis refractory to BiPAP Time Notified: 15:15 Call Completed: Yes - Constitutional Vitals: Temp Pulse Resp BP Pulse Ox 98.2 F 80 18 130/78 6 01/08/18 10:49 01/08/18 10:49 01/08/18 10:58 01/08/18 10:49 01/08/18 15:34 - Attending Attestation I examined this patient and my medical decision-making was reviewed with the Resident Physician Dr. Bethea. I agree with the documented findings, disposition and treatment plan as described except to the extent set forth below. Mr. Rubalcava is a 57 yo M with chronic COPD, Chronic hypoxic and hypercapneic resp failure pt who is very non compliance with his BiPAP admitted here for acute COPD exacerbation and acute on chronic hypoxic resp failure.Initially admitted into ICU and Pt was started on high dose IV steroids and BiPAP. Now pt is using BiPAP at night time and as needed during day time. His symptoms over all better today and he wanted to go home. So counseled the pt about importance of using BiPAP every night and as needed during day time. He does need 6 lit O2 now. Will arrange for 6 lit O2 and home health services. Also counseled to loose weight. Gen: A, A< O 3 Chest: Wheezing + Diminished BS b/l Heart: S1S2+ Ext" Edema+
[2018-01-08] MEDS: predniSONE 20 MG TABLET PO SCH (09:25)
[2018-01-08] MEDS: Fluticasone Propionate Nasal 50 MCG/SPRAY BOTTLE NS SCH (09:25)
[2018-01-08 10:54] VITALS: BP 130/78
[2018-01-08] MEDS: Budesonide/Formoterol 80/4.5 MDI IH SCH (10:58)
[2018-01-08 11:26] LABS: Hematocrit 40.6 % (37.5-50.1); Hemoglobin 11.7 g/dL (12.9-16.9); Mean Corpuscular HGB Conc 28.8 g/dL (31.6-35.5); Mean Corpuscular Hemoglobin 25.5 pg (28.0-33.3); Mean Corpuscular Volume 88.6 fL (83.0-100.0); Mean Platelet Volume 9.4 fL (9.4-12.4); Platelet Count 202 K/mcL (140-400); Red Blood Count 4.58 M/mcL (4.19-5.50); Red Cell Distribution Width 15.4 % (11.5-14.5)
[2018-01-08 13:43] LABS: Lymphocytes # 0.5 K/mcL (0.6-4.6); Monocytes # 0.5 K/mcL (0.0-1.3); Neutrophils # 10.7 K/mcL (1.6-8.9)
[2018-01-08 13:47] LABS: Platelet Estimate Normal (Normal); Stomatocytes 1+ (Not Present); Toxic Granulation Present (Not Present)
[2018-01-08 14:36] LABS: BUN/Creatinine Ratio 33 (6-26); Blood Urea Nitrogen 26 mg/dL (6-20); Calcium 8.6 mg/dL (8.6-10.3); Carbon Dioxide > 45 mEq/L (23-29); Chloride 89 mEq/L (98-107); Glucose 142 mg/dL (70-105); Osmolality,Calculated 297 (280-300); Potassium 3.6 mEq/L (3.5-5.1); Sodium 140 mEq/L (136-145); eGFR For African Americans > 60 (> 60); eGFR For Non-African Americans > 60 (> 60)
--- NOTE | 2018-01-08 16:27 | Physician Discharge Referral ---
Home Health/Hosp Referral Info Transfer to: Home Health Provider in Charge Post Discharge: PCP - Diagnosis (1) Acute exacerbation of chronic obstructive airways disease Priority: Primary Status: Suspected (2) CHF (congestive heart failure) Priority: Secondary Status: Acute (3) HLD (hyperlipidemia) Priority: Secondary Status: Chronic (4) Atrial fibrillation Priority: Secondary Status: Chronic (5) Acute on chronic respiratory failure with hypercapnia Priority: Secondary Status: Acute (6) Depression Priority: Secondary Status: Chronic (7) Diabetes Priority: Secondary Status: Chronic (8) Urinary retention Priority: Secondary Status: Acute - Respiratory Orders Oxygen / L per min (6L continuous via nasal canula) Smoking Cessation: Smoking cessation has been advised. For more information, call the [employer] Tobacco Quit Line at 2-515-HJEH-NOW. - Activity Activity Orders: Ambulate - Services Needed Following services are medically necessary services: Nursing, Home Health Aide, Physical Therapy, Occupational Therapy - Transfer Medications Prescriptions: Furosemide [Lasix] 40 mg PO BID #60 tab predniSONE [PredniSONE] 10 mg PO DAILY #19 tablet Home Medications: Atorvastatin Calcium [Lipitor] 80 mg PO DAILY 05/04/15 [History] Multivitamin/Ferrous Sulfate [One-Daily Rbsip-Kib-Zyav Tab] 1 tab PO DAILY 05/04 [History] Potassium Chloride [Klor-Con 10] 20 meq PO DAILY 05/05/16 [History] Albuterol Neb [Proventil Neb] 2.5 mg IH Q4HR PRN 14 Days vial.neb 05/07/16 [Rx] Citalopram [CeleXA] 40 mg PO DAILY #20 tablet 05/28/16 [Rx] Oxygen 4 l IH AD 12/12/16 [History] Amiodarone [Cordarone] 200 mg PO DAILY 11/23/17 [History] Fluticasone Propionate Nasal [Flonase] 1 spr NS BID 11/23/17 [History] Ipratropium/Albuterol Neb [Duoneb] 3 ml IH QIDR 30 Days #1 11/25/17 [Rx] Fluticasone/Salmeterol [Advair Hfa 45-21 Mcg Inhaler] 1 puff IH BID 01/04/18 [ History] Warfarin [Coumadin] 8 mg PO DAILY 01/04/18 [History] Furosemide [Lasix] 40 mg PO BID #60 tab 01/08/18 [Rx] predniSONE [PredniSONE] 10 mg PO DAILY #19 tablet 01/08/18 [Rx] Allergies/Adverse Reactions: 3 Allergy/AdvReac Type Severity Reaction Status Date / Time OLIVER Inhibitors AdvReac Cough Verified 01/02/18 20:54 Certification: Further, I certify that my clinical findings support that this patient is homebound (i.e. absences from home require considerable and taxing effort and are for medical reasons or christian services or infrequently or short duration when for other reasons) because: Homebound Reason: Severity of cardiac or pulmonary status limits activity tolerance Attestation: My signature below is to certify that this patient is under my care and that I, or nurse practitioner, or a physician's assistant facility manager working with me, has a face-to -face encounter with this patient.
== END 2018-01-08 17:19 | disposition home or self-care (01) | DRG 190 ==
LOC: 2NENU → SUATTDRO 22:50 → ICNU 01-03 17:27 → 2NENU 01-05 11:19
PROVIDERS: ADMIT Internal Medicine; ATTEND Internal Medicine

== ENCOUNTER 2018-02-09 08:37 | Inpatient (IN) ==
[2018-02-09] MEDS ORDERED: Naloxone 0.4 MG/ML INJ IVP PRN (10:36)
[2018-02-09 10:49] LABS: ABG Base Excess 22 mEq/L (-2 to 3); ABG HCO3 56 mEq/L (21-27); ABG Oxygen Saturation 90 % (95-98); ABG PCO2 126 mmHg (35-45); ABG PH 7.26 pH Units (7.32-7.45); ABG PO2 76 mmHg (85-104); ABG TCO2 60 mEq/L (20-26); Blood Gas Modality CPAP/PS; Blood Gas PEEP 10 cm H2O; Blood Gas Pressure Support 18 cm H2O
[2018-02-09 11:13] LABS: Nucleated Red Blood Cells 0.4 /100 WBC (0)
[2018-02-09 11:14] LABS: Hematocrit 39.9 % (37.5-50.1); Hemoglobin 10.8 g/dL (12.9-16.9); Mean Corpuscular HGB Conc 27.1 g/dL (31.6-35.5); Mean Corpuscular Hemoglobin 24.8 pg (28.0-33.3); Mean Corpuscular Volume 91.5 fL (83.0-100.0); Mean Platelet Volume 9.4 fL (9.4-12.4); Platelet Count 226 K/mcL (140-400); Red Blood Count 4.36 M/mcL (4.19-5.50); Red Cell Distribution Width 16.4 % (11.5-14.5)
--- NOTE | 2018-02-09 11:24 | Pulmonology History & Physical ---
Addendum entered and electronically signed by Taylor Cherry 02/09/18 14:19: - Attending Attestation Incomplete note, please refer to the H&P at 1402 for the updated. Original Note: <Taylor Cherry - Last Filed: 02/09/18 14:18> Date of Encounter: 02/09/18 Time of Encounter: 11:22 Assessment and Plan (1) Acute and chronic respiratory failure with hypercapnia Current visit: Yes Status: Acute He has history of COPD and presented to [place] ER due to shortness of breath. He was found to have respiratory acidosis with inadequate metabolic compensation with good arterial oxygen, at the ED pH was 7.21, PCO2 of 137 and HCO3 of 54. He is on home oxygen of 4 liters. Repeat blood gas after Bipap showed some improvement pH 7.26 PCO2 of 95 and HCO3 of 56 improvement. He is on home oxygen and Bipap and had not been using it because it was not working the past a few days. -Continue Bipap -Continue Duonebs and symbicort -Repeat ABG later this afternoon -Continue diuresis (2) Pleural effusion Current visit: Yes Status: Acute Chest xray is consistent with bilateral pleural effusion with increased bilateral opacity. IR is consulted for a thoracentesis. -Continue lasix 80 mg IV BID -Strict I/Os -Fluid restriction of 1.5 liters, currently NPO -Continue Bipap (3) Obesity hypoventilation syndrome Current visit: Yes Status: Chronic His BMI is 70.2 which is likely contributing to his respiratory status. He has history of home oxygen use and is on a home Bipap which was not working for the last a few days and likely contributed to his worsening respiratory status. He likely also has obstructive sleep apnea given his risk factors. -Continue Bipap, FiO2 is at 55% and his oxygen saturation is 91% -Repeat ABG later this afternoon -NPO at the moment -Needs lifestyle modification to prevent worsening of his respiratory state (4) A-fib Current visit: Yes Status: Chronic History of chronic afib. Currently normal sinus rhythm. On amiodarone for rhythm control. His INR was 3.4 and was on home warfarin. -Continue home amiodarone -Holding warfarin because of supratherapeutic INR -On Telemetry Qualifiers: Atrial fibrillation type: chronic Qualified Code(s): I48.2 - Chronic atrial fibrillation (5) Depression Current visit: Yes Status: Chronic History of depression and stated he continues to take citalopram. -Continue home citalopram Qualifiers: Depression Type: major depressive disorder Major depression recurrence: unspecified whether recurrent Active/Remission status: remission status unspecified Qualified Code(s): F32.9 - Major depressive disorder, single episode, unspecified (6) DVT prophylaxis Current visit: Yes Status: Acute On EPCDs because of supratherapeutic INR. Will consider starting home warfarin after thoracentesis or subQ heparin tomorrow. History of Present Illness HPI: Mr. Rubalcava is a 57 year old male Past Med Surg Social Fam HX - Past Medical History Medical history: atrial fibrillation, CHF, COPD, hyperlipidemia, hypertension, other Additional medical history: deaf right ear Psychiatric history: anxiety, depression - Past Surgical History Surgical History: pacemaker/AICD - Social History Smoking Status: Former smoker Smokeless Tobacco Status: No Alcohol use: none Drug use: none - Family History Mother Family Member Ethnicity: Non- Living Status: Still Living Hx Family Cardiac Disorders: No Hx Family Respiratory Disorders: No Hx Family Cancer: Yes Hx Family GI Disorders: No Hx Family Endocrine Disorder: No Father Adopted: No Family Member Ethnicity: Non- Living Status: Hx Family Cancer: Yes Hx Family GI Disorders: No Medications and Allergies Atorvastatin Calcium [Lipitor] 80 mg PO DAILY 05/04/15 [History] Multivitamin/Ferrous Sulfate [One-Daily Otljw-Wgb-Zrwg Tab] 1 tab PO DAILY 05/04 [History] Potassium Chloride [Klor-Con 10] 20 meq PO DAILY 05/05/16 [History] Albuterol Neb [Proventil Neb] 2.5 mg IH Q4HR PRN 14 Days vial.neb 05/07/16 [Rx] Citalopram [CeleXA] 40 mg PO DAILY #20 tablet 05/28/16 [Rx] Oxygen 4 l IH AD 12/12/16 [History] Amiodarone [Cordarone] 200 mg PO DAILY 11/23/17 [History] Fluticasone Propionate Nasal [Flonase] 1 spr NS BID 11/23/17 [History] Ipratropium/Albuterol Neb [Duoneb] 3 ml IH QIDR 30 Days #1 11/25/17 [Rx] Fluticasone/Salmeterol [Advair Hfa 45-21 Mcg Inhaler] 1 puff IH BID 01/04/18 [ History] Warfarin [Coumadin] 8 mg PO DAILY 01/04/18 [History] Furosemide [Lasix] 40 mg PO BID #60 tab 01/08/18 [Rx] predniSONE [PredniSONE] 10 mg PO DAILY #19 tablet 01/15/18 [Rx] 3 Allergy/AdvReac Type Severity Reaction Status Date / Time OLIVER Inhibitors AdvReac Cough Verified 02/09/18 12:02 ROS unobtainable: due to mental status (He is awake but due to decrease) All Systems: The remainder of the systems were reviewed and are negative - Constitutional Constitutional: no chills, no fever(s) - Cardiovascular Cardiovascular: dyspnea, no chest pain - Respiratory Respiratory: dyspnea, no cough, no wheezing - Gastrointestinal Gastrointestinal: no abdominal pain, no diarrhea - Integumentary Integumentary: no rash - Psychiatric Psychiatric: depression (controlled with medications) Physical Examination Vital Signs: Vital Signs, Last 4 Hours Temp Pulse Resp BP Pulse Ox 02/09/18 11:00 76 9 121/56 92 02/09/18 10:26 70 02/09/18 10:15 13 130/70 95 02/09/18 10:05 98.0 F 76 10 130/70 91 Results - Laboratory Findings CBC and BMP: 02/09/18 11:00 02/09/18 11:00 ABG ABG pH 7.26 pH Units (7.32-7.45) L 02/09/18 10:45 ABG pCO2 126 mmHg (35-45) H* 02/09/18 10:45 ABG pO2 76 mmHg (85-104) L 02/09/18 10:45 ABG O2 Saturation 90 % (95-98) L 02/09/18 10:45 Abnormal lab findings: Abnormal lab results Hgb 10.8 g/dL (12.9-16.9) L 02/09/18 11:00 MCH 24.8 pg (28.0-33.3) L 02/09/18 11:00 MCHC 27.1 g/dL (31.6-35.5) L 02/09/18 11:00 RDW 16.4 % (11.5-14.5) H 02/09/18 11:00 Nucleated RBCs/100 WBC 0.4 /100 WBC (0) H 02/09/18 11:00 ABG pH 7.26 pH Units (7.32-7.45) L 02/09/18 10:45 ABG pCO2 126 mmHg (35-45) H* 02/09/18 10:45 ABG pO2 76 mmHg (85-104) L 02/09/18 10:45 ABG HCO3 56 mEq/L (21-27) H 02/09/18 10:45 ABG Total CO2 60 mEq/L (20-26) H 02/09/18 10:45 ABG O2 Saturation 90 % (95-98) L 02/09/18 10:45 ABG Base Excess 22 mEq/L (-2 to 3) H 02/09/18 10:45 <Doris Curtis S - Last Filed: 02/09/18 20:51> Date of Encounter: 02/09/18 History of Present Illness HPI: Mr. Rubalcava is a 57 year old male All Systems: The remainder of the systems were reviewed and are negative Physical Examination Vital Signs: Vital Signs, Last 4 Hours Temp Pulse Resp BP Pulse Ox 02/09/18 20:00 69 11 130/74 94 02/09/18 19:00 98.1 F 80 12 133/76 94 02/09/18 17:00 69 10 137/74 92 Results - Laboratory Findings CBC and BMP: 02/09/18 11:00 02/09/18 11:00 ABG ABG pH 7.27 pH Units (7.32-7.45) L 02/09/18 16:01 ABG pCO2 121 mmHg (35-45) H* 02/09/18 16:01 ABG pO2 75 mmHg (85-104) L 02/09/18 16:01 ABG O2 Saturation 91 % (95-98) L 02/09/18 16:01 Abnormal lab findings: Abnormal lab results Hgb 10.8 g/dL (12.9-16.9) L 02/09/18 11:00 MCH 24.8 pg (28.0-33.3) L 02/09/18 11:00 MCHC 27.1 g/dL (31.6-35.5) L 02/09/18 11:00 RDW 16.4 % (11.5-14.5) H 02/09/18 11:00 Neutrophils # 10.5 K/mcL (1.6-8.9) H 02/09/18 11:00 Lymphocytes # 0.2 K/mcL (0.6-4.6) L 02/09/18 11:00 Nucleated RBCs/100 WBC 0.4 /100 WBC (0) H 02/09/18 11:00 ABG pH 7.27 pH Units (7.32-7.45) L 02/09/18 16:01 ABG pCO2 121 mmHg (35-45) H* 02/09/18 16:01 ABG pO2 75 mmHg (85-104) L 02/09/18 16:01 ABG HCO3 56 mEq/L (21-27) H 02/09/18 16:01 ABG Total CO2 59 mEq/L (20-26) H 02/09/18 16:01 ABG O2 Saturation 91 % (95-98) L 02/09/18 16:01 ABG Base Excess 22 mEq/L (-2 to 3) H 02/09/18 16:01 Chloride 90 mEq/L (98-107) L 02/09/18 11:00 Carbon Dioxide > 45 mEq/L (23-29) H* 02/09/18 11:00 Creatinine 0.68 mg/dL (0.70-1.30) L 02/09/18 11:00 Glucose 161 mg/dL (70-105) H 02/09/18 11:00 POC Glucose 143 mg/dL (70-99) H 02/09/18 16:01 - Attending Attestation Please refer to the note timed at 14:00 -02/09/2018
[2018-02-09 11:41] LABS: Lymphocytes # 0.2 K/mcL (0.6-4.6); Monocytes # 0.2 K/mcL (0.0-1.3); Neutrophils # 10.5 K/mcL (1.6-8.9); Platelet Estimate Normal (Normal)
[2018-02-09 12:45] LABS: BUN/Creatinine Ratio 22 (6-26); Blood Urea Nitrogen 15 mg/dL (6-20); Calcium 8.8 mg/dL (8.6-10.3); Carbon Dioxide > 45 mEq/L (23-29); Chloride 90 mEq/L (98-107); Glucose 161 mg/dL (70-105); Osmolality,Calculated 300 (280-300); Potassium 4.4 mEq/L (3.5-5.1); Sodium 143 mEq/L (136-145); eGFR For Non-African Americans > 60 (> 60)
--- NOTE | 2018-02-09 14:06 | Pulmonology History & Physical ---
<Taylor Cherry - Last Filed: 02/09/18 14:02> Date of Encounter: 02/09/18 Time of Encounter: 14:02 Assessment and Plan (1) Acute and chronic respiratory failure with hypercapnia Current visit: Yes Status: Acute He has history of COPD and presented to [place] [facility] due to shortness of breath. He was found to have respiratory acidosis with inadequate metabolic compensation with good arterial oxygen, at the ED pH was 7.21, PCO2 of 137 and HCO3 of 54. He is on home oxygen of 4 liters. Repeat blood gas after Bipap showed some improvement pH 7.26 PCO2 of 95 and HCO3 of 56 improvement. He is on home oxygen and Bipap and had not been using it because it was not working the past a few days. -Continue Bipap -Continue Duonebs and symbicort -Repeat ABG later this afternoon -Continue diuresis (2) Pleural effusion Current visit: Yes Status: Acute Chest xray is consistent with bilateral pleural effusion with increased bilateral opacity. IR is consulted for a thoracentesis. -Continue lasix 80 mg IV BID -Strict I/Os -Fluid restriction of 1.5 liters, currently NPO -Continue Bipap (3) Obesity hypoventilation syndrome Current visit: Yes Status: Chronic His BMI is 70.2 which is likely contributing to his respiratory status. He has history of home oxygen use and is on a home Bipap which was not working for the last a few days and likely contributed to his worsening respiratory status. He likely also has obstructive sleep apnea given his risk factors. -Continue Bipap, FiO2 is at 55% and his oxygen saturation is 91% -Repeat ABG later this afternoon -NPO at the moment -Needs lifestyle modification to prevent worsening of his respiratory state (4) A-fib Current visit: Yes Status: Chronic History of chronic afib. Currently normal sinus rhythm. On amiodarone for rhythm control. His INR was 3.4 and was on home warfarin. -Continue home amiodarone -Holding warfarin because of supratherapeutic INR -On Telemetry Qualifiers: Atrial fibrillation type: chronic Qualified Code(s): I48.2 - Chronic atrial fibrillation (5) Depression Current visit: Yes Status: Chronic History of depression and stated he continues to take citalopram. -Continue home citalopram Qualifiers: Depression Type: major depressive disorder Major depression recurrence: unspecified whether recurrent Active/Remission status: remission status unspecified Qualified Code(s): F32.9 - Major depressive disorder, single episode, unspecified (6) DVT prophylaxis Current visit: Yes Status: Acute On EPCDs because of supratherapeutic INR. Will consider starting home warfarin after thoracentesis or subQ heparin tomorrow. History of Present Illness HPI: Mr. Rubalcava is a 57 year old male who was transferred from [place] ER because of worsening respiratory status. He presented to the ER because of worsening shortness of breath. At presentation he was found to have respiratory acidosis. He is on home oxygen, 4 liters and uses a Bipap. The last a few days his Bipap was not functioning so he has not used it. At the [place] ED he received a chest xray which showed bilateral pleural effusion. He is on home furosemide. His last echo two months ago showed preserved EF with diastolic dysfunction. He likely is volume overloaded and it is contributing to his respiratory status. Most of the information was obtained from chart review because he is not able to provide detailed history due to his respiratory status. Past Med Surg Social Fam HX - Past Medical History Medical history: atrial fibrillation, CHF, COPD, hyperlipidemia, hypertension, other Additional medical history: deaf right ear Psychiatric history: anxiety, depression - Past Surgical History Surgical History: pacemaker/AICD - Social History Smoking Status: Former smoker Smokeless Tobacco Status: No Alcohol use: none Drug use: none - Family History Mother Family Member Ethnicity: Non- Living Status: Still Living Hx Family Cardiac Disorders: No Hx Family Respiratory Disorders: No Hx Family Cancer: Yes Hx Family GI Disorders: No Hx Family Endocrine Disorder: No Father Adopted: No Family Member Ethnicity: Non- Living Status: Hx Family Cancer: Yes Hx Family GI Disorders: No Medications and Allergies Atorvastatin Calcium [Lipitor] 80 mg PO DAILY 05/04/15 [History] Multivitamin/Ferrous Sulfate [One-Daily Zhhbn-Ecb-Okwu Tab] 1 tab PO DAILY 05/04 [History] Potassium Chloride [Klor-Con 10] 20 meq PO DAILY 05/05/16 [History] Albuterol Neb [Proventil Neb] 2.5 mg IH Q4HR PRN 14 Days vial.neb 05/07/16 [Rx] Citalopram [CeleXA] 40 mg PO DAILY #20 tablet 05/28/16 [Rx] Oxygen 4 l IH AD 12/12/16 [History] Amiodarone [Cordarone] 200 mg PO DAILY 11/23/17 [History] Fluticasone Propionate Nasal [Flonase] 1 spr NS BID 11/23/17 [History] Ipratropium/Albuterol Neb [Duoneb] 3 ml IH QIDR 30 Days #1 11/25/17 [Rx] Fluticasone/Salmeterol [Advair Hfa 45-21 Mcg Inhaler] 1 puff IH BID 01/04/18 [ History] Warfarin [Coumadin] 8 mg PO DAILY 01/04/18 [History] Furosemide [Lasix] 40 mg PO BID #60 tab 01/08/18 [Rx] predniSONE [PredniSONE] 10 mg PO DAILY #19 tablet 01/15/18 [Rx] 3 Allergy/AdvReac Type Severity Reaction Status Date / Time OLIVER Inhibitors AdvReac Cough Verified 02/09/18 12:02 ROS unobtainable: other (unable to obtain a full history because of respiratory status) All Systems: The remainder of the systems were reviewed and are negative - Constitutional Constitutional: no chills, no fever(s) - Cardiovascular Cardiovascular: dyspnea, no chest pain, no edema - Respiratory Respiratory: dyspnea, no cough - Gastrointestinal Gastrointestinal: no abdominal pain, no diarrhea - Musculoskeletal Musculoskeletal: no weakness - Psychiatric Psychiatric: depression (chronic and stable with medication) Physical Examination Vital Signs: Vital Signs, Last 4 Hours Temp Pulse Resp BP Pulse Ox 02/09/18 13:00 70 10 142/83 91 02/09/18 12:00 69 12 139/81 93 02/09/18 11:00 76 9 121/56 92 02/09/18 10:26 70 02/09/18 10:15 13 130/70 95 02/09/18 10:05 98.0 F 76 10 130/70 91 General appearance: no acute distress, alert, other (on a Bipap) Eyes: nonicteric ENT: oropharynx moist Effort: mildly labored Inspection: other (very large abdome) Auscultation: bilateral: diminished breath sounds (diminished at all lung lobes) Cardiovascular: regular rate and rhythm Gastrointestinal: normoactive bowel sounds, non-tender Extremities: no edema mood appropriate, affect normal Results - Laboratory Findings CBC and BMP: 02/09/18 11:00 02/09/18 11:00 ABG ABG pH 7.26 pH Units (7.32-7.45) L 02/09/18 10:45 ABG pCO2 126 mmHg (35-45) H* 02/09/18 10:45 ABG pO2 76 mmHg (85-104) L 02/09/18 10:45 ABG O2 Saturation 90 % (95-98) L 02/09/18 10:45 Abnormal lab findings: Abnormal lab results Hgb 10.8 g/dL (12.9-16.9) L 02/09/18 11:00 MCH 24.8 pg (28.0-33.3) L 02/09/18 11:00 MCHC 27.1 g/dL (31.6-35.5) L 02/09/18 11:00 RDW 16.4 % (11.5-14.5) H 02/09/18 11:00 Neutrophils # 10.5 K/mcL (1.6-8.9) H 02/09/18 11:00 Lymphocytes # 0.2 K/mcL (0.6-4.6) L 02/09/18 11:00 Nucleated RBCs/100 WBC 0.4 /100 WBC (0) H 02/09/18 11:00 ABG pH 7.26 pH Units (7.32-7.45) L 02/09/18 10:45 ABG pCO2 126 mmHg (35-45) H* 02/09/18 10:45 ABG pO2 76 mmHg (85-104) L 02/09/18 10:45 ABG HCO3 56 mEq/L (21-27) H 02/09/18 10:45 ABG Total CO2 60 mEq/L (20-26) H 02/09/18 10:45 ABG O2 Saturation 90 % (95-98) L 02/09/18 10:45 ABG Base Excess 22 mEq/L (-2 to 3) H 02/09/18 10:45 Chloride 90 mEq/L (98-107) L 02/09/18 11:00 Carbon Dioxide > 45 mEq/L (23-29) H* 02/09/18 11:00 Creatinine 0.68 mg/dL (0.70-1.30) L 02/09/18 11:00 Glucose 161 mg/dL (70-105) H 02/09/18 11:00 - Diagnostic Findings Chest x-ray: report reviewed, image reviewed (bilateral pleural effusion) <Doris Curtis - Last Filed: 02/09/18 16:37> Date of Encounter: 02/09/18 History of Present Illness HPI: Mr. Rubalcava is a 57 year old male All Systems: The remainder of the systems were reviewed and are negative Physical Examination Vital Signs: Vital Signs, Last 4 Hours Temp Pulse Resp BP Pulse Ox 02/09/18 16:18 97.7 F 02/09/18 16:08 12 97 02/09/18 15:00 71 10 157/82 92 02/09/18 14:00 74 10 141/78 92 02/09/18 13:00 70 10 142/83 91 Results - Laboratory Findings CBC and BMP: 02/09/18 11:00 02/09/18 11:00 ABG ABG pH 7.27 pH Units (7.32-7.45) L 02/09/18 16:01 ABG pCO2 121 mmHg (35-45) H* 02/09/18 16:01 ABG pO2 75 mmHg (85-104) L 02/09/18 16:01 ABG O2 Saturation 91 % (95-98) L 02/09/18 16:01 Abnormal lab findings: Abnormal lab results Hgb 10.8 g/dL (12.9-16.9) L 02/09/18 11:00 MCH 24.8 pg (28.0-33.3) L 02/09/18 11:00 MCHC 27.1 g/dL (31.6-35.5) L 02/09/18 11:00 RDW 16.4 % (11.5-14.5) H 02/09/18 11:00 Neutrophils # 10.5 K/mcL (1.6-8.9) H 02/09/18 11:00 Lymphocytes # 0.2 K/mcL (0.6-4.6) L 02/09/18 11:00 Nucleated RBCs/100 WBC 0.4 /100 WBC (0) H 02/09/18 11:00 ABG pH 7.27 pH Units (7.32-7.45) L 02/09/18 16:01 ABG pCO2 121 mmHg (35-45) H* 02/09/18 16:01 ABG pO2 75 mmHg (85-104) L 02/09/18 16:01 ABG HCO3 56 mEq/L (21-27) H 02/09/18 16:01 ABG Total CO2 59 mEq/L (20-26) H 02/09/18 16:01 ABG O2 Saturation 91 % (95-98) L 02/09/18 16:01 ABG Base Excess 22 mEq/L (-2 to 3) H 02/09/18 16:01 Chloride 90 mEq/L (98-107) L 02/09/18 11:00 Carbon Dioxide > 45 mEq/L (23-29) H* 02/09/18 11:00 Creatinine 0.68 mg/dL (0.70-1.30) L 02/09/18 11:00 Glucose 161 mg/dL (70-105) H 02/09/18 11:00 POC Glucose 143 mg/dL (70-99) H 02/09/18 16:01 - Attending Attestation I saw and evaluated this patient and my medical decision-making was reviewed with the Resident Physician. I agree with the documented findings, disposition and treatment plan as described except to the extent set forth below. We independently had [id number] contact with the patient I spent 32 minutes of Critical Care time with this patient. It involved decision making of high complexity to assess, manipulate, and support vital organ system failure and/or to prevent further life threatening deterioration of the patient's condition. The time involved in the performance of separately reportable procedures was not counted toward critical care time. Patient seen and examined at bedside Labs, radiology, chart personally reviewed. Management was reviewed during multidisciplinary critical care rounds. 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 And he is also following simple commands . Patient chronic hypercarbia is improving but there was a recent development of unequal pupil no focal neurological exam will get a CT head stat.. Pulm: Has acute on chronic hypoxic hypercapnic respiratory failure secondary to acute on chronic diastolic heart failure, COPD, morbid obesity patient is responding well to BiPAP therapy 19/04 will need continued diuresis as tolerated. Cards: His hemoglobin is stable acute on chronic diastolic heart failure patient is on diuresis. FEN-GI: Nothing by mouth as patient is on BiPAP Renal: Labs and output reviewed ID: No active infection issues Heme/Onc: Thromboprophylaxis Endo: Glucose Monitored Integ/MSK: Skin Care per routine ICU Nursing Protocol to prevent ulcers. Lines: All lines examined without evidence of infection : Dispo: Critically ill CODE: Full Code .
[2018-02-09] MEDS: Furosemide 40 MG/4 ML VIAL IVP SCH (15:59)
[2018-02-09 16:05] LABS: ABG Base Excess 22 mEq/L (-2 to 3); ABG HCO3 56 mEq/L (21-27); ABG Oxygen Saturation 91 % (95-98); ABG PCO2 121 mmHg (35-45); ABG PH 7.27 pH Units (7.32-7.45); ABG PO2 75 mmHg (85-104); ABG TCO2 59 mEq/L (20-26); Blood Gas Modality BiLevel; Blood Gas PEEP 10 cm H2O
[2018-02-09] MEDS: Ipratropium/Albuterol Neb 3 ML IH SCH ×2 (16:07→22:02)
[2018-02-09] MEDS ORDERED: Warfarin perPT PO SCH (18:00)
[2018-02-09] MEDS: Budesonide/Formoterol 80/4.5 MDI IH SCH (23:11)
[2018-02-10 03:20] LABS: Immature Granulocytes % 0.8 % (0-4); Monocytes % 7.6 %
[2018-02-10 03:21] LABS: Basophils % 0.1 %; Hematocrit 39.1 % (37.5-50.1); Hemoglobin 10.7 g/dL (12.9-16.9); Lymphocytes # 0.5 K/mcL (0.6-4.6); Lymphocytes % 5.1 %; Mean Corpuscular HGB Conc 27.4 g/dL (31.6-35.5); Mean Corpuscular Hemoglobin 25.3 pg (28.0-33.3); Mean Corpuscular Volume 92.4 fL (83.0-100.0); Mean Platelet Volume 9.4 fL (9.4-12.4); Monocytes # 0.8 K/mcL (0.0-1.3); Neutrophils # 9.2 K/mcL (1.6-8.9); Nucleated Red Blood Cells 0.3 /100 WBC (0); Platelet Count 243 K/mcL (140-400); Red Blood Count 4.23 M/mcL (4.19-5.50); Red Cell Distribution Width 16.1 % (11.5-14.5); Segmented Neutrophils % 86.4 %
[2018-02-10 03:24] LABS: INR 3.8
[2018-02-10 03:28] LABS: Prothrombin Time 43.3 Seconds (9.4-12.1)
[2018-02-10 03:43] LABS: Magnesium 2.4 mg/dL (1.6-2.6); Phosphorous 4.6 mg/dL (2.7-4.5)
[2018-02-10 03:49] LABS: BUN/Creatinine Ratio 31 (6-26); Blood Urea Nitrogen 19 mg/dL (6-20); Calcium 8.8 mg/dL (8.6-10.3); Carbon Dioxide > 45 mEq/L (23-29); Chloride 89 mEq/L (98-107); Glucose 113 mg/dL (70-105); Osmolality,Calculated 303 (280-300); Potassium 4.6 mEq/L (3.5-5.1); Sodium 145 mEq/L (136-145); eGFR For Non-African Americans > 60 (> 60)
[2018-02-10] MEDS: Ipratropium/Albuterol Neb 3 ML IH SCH ×4 (04:11→22:08)
[2018-02-10 04:43] LABS: Anisocytosis 1+ (Not Present); Hypochromasia Present (Not Present); Platelet Estimate Normal (Normal); Polychromasia 1+ (Not Present)
[2018-02-10 04:49] LABS: ABG Base Excess 24 mEq/L (-2 to 3); ABG HCO3 56 mEq/L (21-27); ABG Oxygen Saturation 92 % (95-98); ABG PCO2 110 mmHg (35-45); ABG PH 7.32 pH Units (7.32-7.45); ABG PO2 76 mmHg (85-104); ABG TCO2 60 mEq/L (20-26)
[2018-02-10] MEDS: Furosemide 40 MG/4 ML VIAL IVP SCH ×2 (07:55→16:40)
[2018-02-10] MEDS: *HR* Amiodarone 200 MG TABLET PO SCH (07:55)
--- NOTE | 2018-02-10 09:27 | Pulmonology Progress Note ---
<Taylor Cherry - Last Filed: 02/10/18 10:59> Date of Encounter: 02/10/18 Time of Encounter: 08:52 Assessment and Plan (1) Acute and chronic respiratory failure with hypercapnia Current Visit: Yes Status: Acute He has history of COPD and presented to [place] ER due to shortness of breath. He was found to have respiratory acidosis with inadequate metabolic compensation with good arterial oxygen, at the ED in [place] yesterday his pH was 7.21, PCO2 of 137 and HCO3 of 54. Repeat arterial blood gas this morning showed some improvement, pH of 7.32, PCO2 of 110, PO2 of 76 and HCO3 of 56. He is on home oxygen and Bipap and had not been using it because it was not working the past a few days. -Continue Bipap -Continue Duonebs and symbicort -Continue diuresis (2) Pleural effusion Current Visit: Yes Status: Acute Chest xray is consistent with bilateral pleural effusion with increased bilateral opacity. Thoracentesis is on hold because his INR is elevated at 3.7. Good urinary output, yesterday was 2450 and today has been 525 so far. -Plan to have thoracentesis Monday by IR, may require vitamin K if his INR continues to remain high -Continue lasix 80 mg IV BID -Strict I/Os -Clear liquids with 1.5 liter of fluid restriction -Continue Bipap and weaned to nasal cannula (3) Obesity hypoventilation syndrome Current Visit: Yes Status: Chronic His BMI is 70.2 which is likely contributing to his respiratory status. He has history of home oxygen use and is on a home Bipap which was not working for the last a few days and likely contributed to his worsening respiratory status. He likely also has obstructive sleep apnea given his risk factors. 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 -Continue Bipap, FiO2 is at 60% and his oxygen saturation is 93% and can be weaned to nasal cannula -Repeat ABG later if respiratory status changes -Clear liquids with fluid restriction of 1.5 liter -Needs lifestyle modification to prevent worsening of his respiratory state (4) A-fib Current Visit: Yes Status: Chronic History of chronic afib. Currently normal sinus rhythm. On amiodarone for rhythm control. His INR was 3.7 this morning and was on home warfarin prior to presentation. -Continue home amiodarone -Holding warfarin because of supratherapeutic INR -On Telemetry Qualifiers: Atrial fibrillation type: chronic Qualified Code(s): I48.2 - Chronic atrial fibrillation (5) Depression Current Visit: Yes Status: Chronic History of depression and stated he continues to take citalopram. -Continue home citalopram Qualifiers: Depression Type: major depressive disorder Major depression recurrence: unspecified whether recurrent Active/Remission status: remission status unspecified Qualified Code(s): F32.9 - Major depressive disorder, single episode, unspecified (6) DVT prophylaxis Current Visit: Yes Status: Acute On EPCDs because of supratherapeutic INR. Will consider starting home warfarin after thoracentesis. Subjective Principal diagnosis: shortness of breath Interval history: Mr. Rubalcava was examined at bedside this morning. He is resting in bed and overnight had no events. He is currently on BiPAP, FiO2 of 60%, IPAP of 20 and EPAP of 10 with oxygen saturation of 93%. He complained of a daily weird sensation at the location of his pacemaker. He is currently in normal sinus rhythm and has been since his admission. He denied fever, chills, nausea, worsening shortness of breath or chest pain. Objective PUL Vital signs: Last Vital Signs Temp 97.9 F 02/10/18 07:00 Pulse 70 02/10/18 07:00 Resp 13 02/10/18 06:01 BP 144/79 02/10/18 06:01 Pulse Ox 92 02/10/18 06:01 General appearance: no acute distress Eyes: nonicteric ENT: oropharynx moist Auscultation: bilateral: diminished breath sounds (Diminished or unable to accurelate auscultate due to body habitus) Cardiovascular: regular rate and rhythm Gastrointestinal: normoactive bowel sounds, soft, non-tender Integumentary: other (Right leg above the knee has a erythematous area that is warm upon palpation) Extremities: no edema, pulses normal mood appropriate, affect normal Results - Laboratory Findings CBC and BMP: 02/10/18 03:00 02/10/18 03:00 ABG ABG pH 7.32 pH Units (7.32-7.45) 02/10/18 04:44 ABG pCO2 110 mmHg (35-45) H* 02/10/18 04:44 ABG pO2 76 mmHg (85-104) L 02/10/18 04:44 ABG O2 Saturation 92 % (95-98) L 02/10/18 04:44 PT/INR, D-dimer PT 43.3 Seconds (9.4-12.1) H* 02/10/18 03:00 Abnormal lab findings: Abnormal lab results Hgb 10.7 g/dL (12.9-16.9) L 02/10/18 03:00 MCH 25.3 pg (28.0-33.3) L 02/10/18 03:00 MCHC 27.4 g/dL (31.6-35.5) L 02/10/18 03:00 RDW 16.1 % (11.5-14.5) H 02/10/18 03:00 Neutrophils # 9.2 K/mcL (1.6-8.9) H 02/10/18 03:00 Lymphocytes # 0.5 K/mcL (0.6-4.6) L 02/10/18 03:00 Nucleated RBCs/100 WBC 0.3 /100 WBC (0) H 02/10/18 03:00 Polychromasia 1+ (Not Present) A 02/10/18 03:00 Hypochromasia Present (Not Present) A 02/10/18 03:00 Anisocytosis 1+ (Not Present) A 02/10/18 03:00 PT 43.3 Seconds (9.4-12.1) H* 02/10/18 03:00 ABG pCO2 110 mmHg (35-45) H* 02/10/18 04:44 ABG pO2 76 mmHg (85-104) L 02/10/18 04:44 ABG HCO3 56 mEq/L (21-27) H 02/10/18 04:44 ABG Total CO2 60 mEq/L (20-26) H 02/10/18 04:44 ABG O2 Saturation 92 % (95-98) L 02/10/18 04:44 ABG Base Excess 24 mEq/L (-2 to 3) H 02/10/18 04:44 Chloride 89 mEq/L (98-107) L 02/10/18 03:00 Carbon Dioxide > 45 mEq/L (23-29) H* 02/10/18 03:00 Creatinine 0.62 mg/dL (0.70-1.30) L 02/10/18 03:00 BUN/Creatinine Ratio 31 (6-26) H 02/10/18 03:00 Glucose 113 mg/dL (70-105) H 02/10/18 03:00 Calculated Osmolality 303 (280-300) H 02/10/18 03:00 Phosphorus 4.6 mg/dL (2.7-4.5) H 02/10/18 03:00 - Clinical Findings Intake & Output: Intake & Output 02/09/18 02/10/18 02/10/18 23:59 07:59 15:59 Output Total 2450 / 2450 525 / 525 Balance -2450 / -2450 -525 / -525 - VTE Documentation of Mechanical Device: Intermittent pneumatic compression device Consult Discharge Plan - Plan Referrals: Jay Cool MD [Primary Care Provider] - <Doris Curtis S - Last Filed: 02/10/18 20:27> Date of Encounter: 02/10/18 Objective PUL Vital signs: Last Vital Signs Temp 98.0 F 02/10/18 15:00 Pulse 86 02/10/18 20:00 Resp 21 02/10/18 20:00 BP 127/79 02/10/18 20:00 Pulse Ox 92 02/10/18 20:00 Results - Laboratory Findings CBC and BMP: 02/10/18 03:00 02/10/18 10:10 ABG ABG pH 7.32 pH Units (7.32-7.45) 02/10/18 04:44 ABG pCO2 110 mmHg (35-45) H* 02/10/18 04:44 ABG pO2 76 mmHg (85-104) L 02/10/18 04:44 ABG O2 Saturation 92 % (95-98) L 02/10/18 04:44 PT/INR, D-dimer PT 43.3 Seconds (9.4-12.1) H* 02/10/18 03:00 Abnormal lab findings: Abnormal lab results Hgb 10.7 g/dL (12.9-16.9) L 02/10/18 03:00 MCH 25.3 pg (28.0-33.3) L 02/10/18 03:00 MCHC 27.4 g/dL (31.6-35.5) L 02/10/18 03:00 RDW 16.1 % (11.5-14.5) H 02/10/18 03:00 Neutrophils # 9.2 K/mcL (1.6-8.9) H 02/10/18 03:00 Lymphocytes # 0.5 K/mcL (0.6-4.6) L 02/10/18 03:00 Nucleated RBCs/100 WBC 0.3 /100 WBC (0) H 02/10/18 03:00 Polychromasia 1+ (Not Present) A 02/10/18 03:00 Hypochromasia Present (Not Present) A 02/10/18 03:00 Anisocytosis 1+ (Not Present) A 02/10/18 03:00 PT 43.3 Seconds (9.4-12.1) H* 02/10/18 03:00 ABG pCO2 110 mmHg (35-45) H* 02/10/18 04:44 ABG pO2 76 mmHg (85-104) L 02/10/18 04:44 ABG HCO3 56 mEq/L (21-27) H 02/10/18 04:44 ABG Total CO2 60 mEq/L (20-26) H 02/10/18 04:44 ABG O2 Saturation 92 % (95-98) L 02/10/18 04:44 ABG Base Excess 24 mEq/L (-2 to 3) H 02/10/18 04:44 Chloride 85 mEq/L (98-107) L 02/10/18 10:10 Carbon Dioxide > 45 mEq/L (23-29) H* 02/10/18 10:10 BUN 21 mg/dL (6-20) H 02/10/18 10:10 Creatinine 0.65 mg/dL (0.70-1.30) L 02/10/18 10:10 BUN/Creatinine Ratio 32 (6-26) H 02/10/18 10:10 POC Glucose 132 mg/dL (70-99) H 02/10/18 18:31 Calculated Osmolality 301 (280-300) H 02/10/18 10:10 Phosphorus 4.6 mg/dL (2.7-4.5) H 02/10/18 03:00 - Clinical Findings Intake & Output: Intake & Output 02/10/18 02/10/18 02/10/18 07:59 15:59 23:59 Intake Total 700 / 700 50 / 50 Output Total 525 / 525 1650 / 1650 Balance -525 / -525 -950 / -950 50 / 50 - Attending Attestation - Attending Attestation I saw and evaluated this patient and my medical decision-making was reviewed with the Resident Physician. I agree with the documented findings, disposition and treatment plan as described except to the extent set forth below. We independently had [id number] contact with the patient Patient seen and examined at bedside Labs, radiology, chart personally reviewed. Management was reviewed during multidisciplinary critical care rounds. 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 And he is also following simple commands . Patient chronic hypercarbia is improving but there was a recent development of unequal pupil no focal neurological exam will get a CT head stat.. 02/10: Patient is more alert than yesterday following commands asking for some diet today . Pulm: Has acute on chronic hypoxic hypercapnic respiratory failure secondary to acute on chronic diastolic heart failure, COPD, morbid obesity patient is responding well to BiPAP therapy 19/04 will need continued diuresis as tolerated. Patient tolerated the BiPAP whole night well will give breaks today with clear liquid diet patient should be on BiPAP whenever he sleeps and especially at night. He mismatch is slowly getting better patient has bilateral pleural effusion due to hydrostatic pulmonary edema will continue diuresis the patient IRs declined thoracentesis because of high INR will try to reverse tomorrow in case IR attempts thoracentesis on Monday if necessary . Cards: He is hemodynamically stable acute on chronic diastolic heart failure patient is on diuresis. Patient need Pacemaker evaluation will consult cardiology on Monday . FEN-GI: Will advance to clear liquid diet Renal: Labs and output reviewed To follow electrolytes and bicarbonate ID: No active infection issues Heme/Onc: Thromboprophylaxis Endo: Glucose Monitored Integ/MSK: Skin Care per routine ICU Nursing Protocol to prevent ulcers. Lines: All lines examined without evidence of infection : Dispo: Still high chance of respiratory decline . CODE: Full Code .
[2018-02-10 11:01] LABS: BUN/Creatinine Ratio 32 (6-26); Blood Urea Nitrogen 21 mg/dL (6-20); Carbon Dioxide > 45 mEq/L (23-29); Chloride 85 mEq/L (98-107); Glucose 91 mg/dL (70-105); Osmolality,Calculated 301 (280-300); Potassium 4.3 mEq/L (3.5-5.1); Sodium 144 mEq/L (136-145); eGFR For Non-African Americans > 60 (> 60)
[2018-02-10] MEDS: Budesonide/Formoterol 80/4.5 MDI IH SCH ×2 (11:06→22:08)
[2018-02-10] MEDS ORDERED: *HR* LORazepam 2 MG/ML VIAL IVP ONE (14:21)
[2018-02-11 03:54] LABS: Lymphocytes % 9.7 %; Mean Platelet Volume 9.3 fL (9.4-12.4)
[2018-02-11 03:55] LABS: Basophils % 0.2 %; Eosinophils # 0.1 K/mcL (0.0-0.6); Eosinophils % 0.6 %; Hematocrit 39.9 % (37.5-50.1); Hemoglobin 11.1 g/dL (12.9-16.9); Immature Granulocytes % 0.5 % (0-4); Mean Corpuscular HGB Conc 27.8 g/dL (31.6-35.5); Mean Corpuscular Hemoglobin 25.5 pg (28.0-33.3); Mean Corpuscular Volume 91.7 fL (83.0-100.0); Monocytes # 0.8 K/mcL (0.0-1.3); Monocytes % 8.6 %; Neutrophils # 7.9 K/mcL (1.6-8.9); Platelet Count 235 K/mcL (140-400); Red Blood Count 4.35 M/mcL (4.19-5.50); Red Cell Distribution Width 16.2 % (11.5-14.5); Segmented Neutrophils % 80.4 %
[2018-02-11] MEDS: Ipratropium/Albuterol Neb 3 ML IH SCH ×4 (03:58→22:45)
[2018-02-11 04:05] LABS: INR 3.4; Prothrombin Time 38.3 Seconds (9.4-12.1)
[2018-02-11 04:22] LABS: BUN/Creatinine Ratio 38 (6-26); Blood Urea Nitrogen 24 mg/dL (6-20); Calcium 8.8 mg/dL (8.6-10.3); Carbon Dioxide > 45 mEq/L (23-29); Chloride 83 mEq/L (98-107); Glucose 90 mg/dL (70-105); Osmolality,Calculated 300 (280-300); Potassium 3.9 mEq/L (3.5-5.1); Sodium 143 mEq/L (136-145); eGFR For Non-African Americans > 60 (> 60)
[2018-02-11 04:23] LABS: Anisocytosis 1+ (Not Present); Hypochromasia Present (Not Present); Platelet Estimate Normal (Normal); Stomatocytes 1+ (Not Present)
[2018-02-11 04:39] LABS: ABG Base Excess 27 mEq/L (-2 to 3); ABG HCO3 59 mEq/L (21-27); ABG Oxygen Saturation 93 % (95-98); ABG PCO2 99 mmHg (35-45); ABG PH 7.38 pH Units (7.32-7.45); ABG PO2 76 mmHg (85-104); ABG TCO2 62 mEq/L (20-26); Blood Gas PEEP 10 cm H2O
[2018-02-11] MEDS: Furosemide 40 MG/4 ML VIAL IVP SCH ×2 (07:23→17:00)
[2018-02-11] MEDS ORDERED: *HR* Phytonadione 5 MG TABLET PO ONE (07:24)
[2018-02-11] MEDS: *HR* Amiodarone 200 MG TABLET PO SCH (08:45)
--- NOTE | 2018-02-11 09:14 | Pulmonology Progress Note ---
<Taylor Cherry - Last Filed: 02/11/18 09:12> Date of Encounter: 02/11/18 Time of Encounter: 09:12 Assessment and Plan (1) Acute and chronic respiratory failure with hypercapnia Current Visit: Yes Status: Acute He has history of COPD and presented to [place] ER due to shortness of breath. He was found to have respiratory acidosis with inadequate metabolic compensation with good arterial oxygen, at the ED in [place] yesterday his pH was 7.21, PCO2 of 137 and HCO3 of 54. Repeat arterial blood gas this morning showed some improvement but continued low arterial PO2. He has respiratory acidosis with metabolic compensation. pH of 7.38, PCO2 of 99, PaO2 of 76 and HCO3 of 59. He is on home oxygen and Bipap and had not been using it because it was not working the past a few days. -Continue Bipap -Continue Duonebs and symbicort -Continue diuresis (2) Pleural effusion Current Visit: Yes Status: Acute Repeat chest xray today shows improvement in his lung opacity. There is still ongoing small right lower lung opacity and left lower lung, due to cardiomegaly it is difficult to assess effusion. Thoracentesis is on hold because his INR is elevated at 3.4, and wanted to wait to see the effect of diuresis. He received 10 mg of vitamin K to reverse his elevated INR. Will repeat at 8 am tomorrow morning. Good urinary output, yesterday was 3025 and today has been 1275 so far. -Plan to have thoracentesis Monday by IR, received vitamin K today -INR recheck at 8 am tomorrow -Continue lasix 80 mg IV BID -Strict I/Os -Clear liquids with 1.5 liter of fluid restriction -Continue Bipap and wean to nasal cannula (3) Obesity hypoventilation syndrome Current Visit: Yes Status: Chronic His BMI is 70.2 which is likely contributing to his respiratory status. He has history of home oxygen use of 4 liters and is on a home Bipap which was not working for the last a few days and likely contributed to his worsening respiratory status. He likely also has obstructive sleep apnea given his risk factors. filter worker consulted for a new BiPAP and chronic hypercapnic respiratory failure. -Continue Bipap, FiO2 is at 60% and his oxygen saturation is 93% and can be weaned to nasal cannula as tolerated -Repeat ABG if respiratory status changes -Clear liquids with fluid restriction of 1.5 liter -Needs lifestyle modification to prevent worsening of his respiratory state (4) A-fib Current Visit: Yes Status: Chronic History of chronic afib. Currently normal sinus rhythm. On amiodarone for rhythm control. His INR was 3.4 this morning and was on home warfarin prior to presentation. -S/p 10 mg of vitamin K -Continue home amiodarone -Holding warfarin because of supratherapeutic INR -On Telemetry -EP cardiology will see him tomorrow for his pacemaker Qualifiers: Atrial fibrillation type: chronic Qualified Code(s): I48.2 - Chronic atrial fibrillation (5) Depression Current Visit: Yes Status: Chronic History of depression and stated he continues to take citalopram. -Continue home citalopram Qualifiers: Depression Type: major depressive disorder Major depression recurrence: unspecified whether recurrent Active/Remission status: remission status unspecified Qualified Code(s): F32.9 - Major depressive disorder, single episode, unspecified (6) DVT prophylaxis Current Visit: Yes Status: Acute On EPCDs because of supratherapeutic INR. Will consider starting home warfarin after thoracentesis. Subjective Principal diagnosis: shortness of breath Interval history: Mr. Rubalcava was examined at bedside this morning. He is resting in bed and overnight had no events. He is awake and alert. He is currently on BiPAP, FiO2 of 60%, IPAP of 20 and EPAP of 10 with oxygen saturation of 93%. He is currently in normal sinus rhythm and has been since his admission. He denied fever, chills, nausea, worsening shortness of breath or chest pain. Objective PUL Vital signs: Last Vital Signs Temp 98.8 F 02/11/18 07:00 Pulse 82 02/11/18 09:00 Resp 20 02/11/18 09:00 BP 122/73 02/11/18 09:00 Pulse Ox 90 02/11/18 09:00 General appearance: no acute distress Eyes: nonicteric ENT: oropharynx moist Auscultation: left: diminished breath sounds (diminished on all lung lobes, worse on left lower) Cardiovascular: regular rate and rhythm Gastrointestinal: normoactive bowel sounds, soft, non-tender Integumentary: other (erythema on left leg, warm and nontender per patient it is chronic) Extremities: no edema normal mental status mood appropriate, affect normal Results - Laboratory Findings CBC and BMP: 02/11/18 03:30 02/11/18 03:30 ABG ABG pH 7.38 pH Units (7.32-7.45) 02/11/18 04:36 ABG pCO2 99 mmHg (35-45) H* 02/11/18 04:36 ABG pO2 76 mmHg (85-104) L 02/11/18 04:36 ABG O2 Saturation 93 % (95-98) L 02/11/18 04:36 PT/INR, D-dimer PT 38.3 Seconds (9.4-12.1) H 02/11/18 03:30 Abnormal lab findings: Abnormal lab results Hgb 11.1 g/dL (12.9-16.9) L 02/11/18 03:30 MCH 25.5 pg (28.0-33.3) L 02/11/18 03:30 MCHC 27.8 g/dL (31.6-35.5) L 02/11/18 03:30 RDW 16.2 % (11.5-14.5) H 02/11/18 03:30 MPV 9.3 fL (9.4-12.4) L 02/11/18 03:30 Nucleated RBCs/100 WBC 0.3 /100 WBC (0) H 02/10/18 03:00 Polychromasia 1+ (Not Present) A 02/10/18 03:00 Hypochromasia Present (Not Present) A 02/11/18 03:30 Anisocytosis 1+ (Not Present) A 02/11/18 03:30 Stomatocytes 1+ (Not Present) A 02/11/18 03:30 PT 38.3 Seconds (9.4-12.1) H 02/11/18 03:30 ABG pCO2 99 mmHg (35-45) H* 02/11/18 04:36 ABG pO2 76 mmHg (85-104) L 02/11/18 04:36 ABG HCO3 59 mEq/L (21-27) H 02/11/18 04:36 ABG Total CO2 62 mEq/L (20-26) H 02/11/18 04:36 ABG O2 Saturation 93 % (95-98) L 02/11/18 04:36 ABG Base Excess 27 mEq/L (-2 to 3) H 02/11/18 04:36 Chloride 83 mEq/L (98-107) L 02/11/18 03:30 Carbon Dioxide > 45 mEq/L (23-29) H* 02/11/18 03:30 BUN 24 mg/dL (6-20) H 02/11/18 03:30 Creatinine 0.63 mg/dL (0.70-1.30) L 02/11/18 03:30 BUN/Creatinine Ratio 38 (6-26) H 02/11/18 03:30 Phosphorus 4.6 mg/dL (2.7-4.5) H 02/10/18 03:00 - Diagnostic Findings Chest x-ray: report reviewed (imrpovement in bilateral lung opacity, continued left lower lobe opacity), image reviewed - Clinical Findings Intake & Output: Intake & Output 02/10/18 02/11/18 02/11/18 23:59 07:59 15:59 Intake Total 50 / 50 300 / 300 50 / 50 Output Total 1600 / 1600 400 / 400 1225 / 1225 Balance -1550 / -1550 -100 / -100 -1175 / -1175 Weight 218.1 kg - VTE Documentation of Mechanical Device: Intermittent pneumatic compression device Consult Discharge Plan - Plan Referrals: Jay Cool MD [Primary Care Provider] - <Doris Curtis S - Last Filed: 02/11/18 10:24> Date of Encounter: 02/11/18 Objective PUL Vital signs: Last Vital Signs Temp 98.8 F 02/11/18 07:00 Pulse 82 02/11/18 09:00 Resp 20 02/11/18 09:00 BP 122/73 02/11/18 09:00 Pulse Ox 90 02/11/18 09:00 Results - Laboratory Findings CBC and BMP: 02/11/18 03:30 02/11/18 03:30 ABG ABG pH 7.38 pH Units (7.32-7.45) 02/11/18 04:36 ABG pCO2 99 mmHg (35-45) H* 02/11/18 04:36 ABG pO2 76 mmHg (85-104) L 02/11/18 04:36 ABG O2 Saturation 93 % (95-98) L 02/11/18 04:36 PT/INR, D-dimer PT 38.3 Seconds (9.4-12.1) H 02/11/18 03:30 Abnormal lab findings: Abnormal lab results Hgb 11.1 g/dL (12.9-16.9) L 02/11/18 03:30 MCH 25.5 pg (28.0-33.3) L 02/11/18 03:30 MCHC 27.8 g/dL (31.6-35.5) L 02/11/18 03:30 RDW 16.2 % (11.5-14.5) H 02/11/18 03:30 MPV 9.3 fL (9.4-12.4) L 02/11/18 03:30 Nucleated RBCs/100 WBC 0.3 /100 WBC (0) H 02/10/18 03:00 Polychromasia 1+ (Not Present) A 02/10/18 03:00 Hypochromasia Present (Not Present) A 02/11/18 03:30 Anisocytosis 1+ (Not Present) A 02/11/18 03:30 Stomatocytes 1+ (Not Present) A 02/11/18 03:30 PT 38.3 Seconds (9.4-12.1) H 02/11/18 03:30 ABG pCO2 99 mmHg (35-45) H* 02/11/18 04:36 ABG pO2 76 mmHg (85-104) L 02/11/18 04:36 ABG HCO3 59 mEq/L (21-27) H 02/11/18 04:36 ABG Total CO2 62 mEq/L (20-26) H 02/11/18 04:36 ABG O2 Saturation 93 % (95-98) L 02/11/18 04:36 ABG Base Excess 27 mEq/L (-2 to 3) H 02/11/18 04:36 Chloride 83 mEq/L (98-107) L 02/11/18 03:30 Carbon Dioxide > 45 mEq/L (23-29) H* 02/11/18 03:30 BUN 24 mg/dL (6-20) H 02/11/18 03:30 Creatinine 0.63 mg/dL (0.70-1.30) L 02/11/18 03:30 BUN/Creatinine Ratio 38 (6-26) H 02/11/18 03:30 Phosphorus 4.6 mg/dL (2.7-4.5) H 02/10/18 03:00 - Clinical Findings Intake & Output: Intake & Output 02/10/18 02/11/18 02/11/18 23:59 07:59 15:59 Intake Total 50 / 50 300 / 300 50 / 50 Output Total 1600 / 1600 400 / 400 1225 / 1225 Balance -1550 / -1550 -100 / -100 -1175 / -1175 Weight 218.1 kg - Attending Attestation - Attending Attestation I saw and evaluated this patient and my medical decision-making was reviewed with the Resident Physician. I agree with the documented findings, disposition and treatment plan as described except to the extent set forth below. We independently had [id number] contact with the patient Patient seen and examined at bedside Labs, radiology, chart personally reviewed. Management was reviewed during multidisciplinary critical care rounds. 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 And he is also following simple commands . Patient chronic hypercarbia is improving but there was a recent development of unequal pupil no focal neurological exam will get a CT head stat.. 02/10: Patient is more alert than yesterday following commands asking for some diet today . Pulm: Has acute on chronic hypoxic hypercapnic respiratory failure secondary to acute on chronic diastolic heart failure, COPD, morbid obesity patient is responding well to BiPAP therapy 19/04 will need continued diuresis as tolerated. Patient tolerated the BiPAP whole night well will give breaks today with clear liquid diet patient should be on BiPAP whenever he sleeps and especially at night. He mismatch is slowly getting better patient has bilateral pleural effusion due to hydrostatic pulmonary edema will continue diuresis the patient IRs declined thoracentesis because of high INR will try to reverse tomorrow in case IR attempts thoracentesis on Monday if necessary . 02/11 The gas exchange is acceptable still hypoxic but Acceptable oxygenation if he is still hypoxic by tomorrow will ask IR to have a look with ultrasound for possible thoracentesis will correct the INR Cards: He is hemodynamically stable acute on chronic diastolic heart failure patient is on diuresis. Patient need Pacemaker evaluation will consult cardiology on Monday . Spoke with , to see tomorrow from Electrophysiology FEN-GI: Patient is on clear liquid diet Renal: Labs and output reviewed To follow electrolytes and bicarbonate . ID: No active infection issues Heme/Onc: Thromboprophylaxis to hold off chemical since INR is shereen Endo: Glucose Monitored Integ/MSK: Skin Care per routine ICU Nursing Protocol to prevent ulcers. Lines: All lines examined without evidence of infection : Dispo: Still high chance of respiratory decline . CODE: Full Code .
[2018-02-11] MEDS: Budesonide/Formoterol 80/4.5 MDI IH SCH ×2 (11:20→22:45)
[2018-02-11 12:19] LABS: BUN/Creatinine Ratio 34 (6-26); Blood Urea Nitrogen 22 mg/dL (6-20); Calcium 8.9 mg/dL (8.6-10.3); Carbon Dioxide > 45 mEq/L (23-29); Chloride 82 mEq/L (98-107); Glucose 98 mg/dL (70-105); Osmolality,Calculated 293 (280-300); Potassium 3.8 mEq/L (3.5-5.1); Sodium 140 mEq/L (136-145); eGFR For Non-African Americans > 60 (> 60)
[2018-02-12] MEDS: Ipratropium/Albuterol Neb 3 ML IH SCH ×5 (04:29→22:28)
[2018-02-12 06:49] LABS: Basophils % 0.2 %; Eosinophils # 0.1 K/mcL (0.0-0.6); Eosinophils % 0.7 %; Hematocrit 40.6 % (37.5-50.1); Hemoglobin 11.5 g/dL (12.9-16.9); Immature Granulocytes % 0.4 % (0-4); Lymphocytes # 0.8 K/mcL (0.6-4.6); Lymphocytes % 7.4 %; Mean Corpuscular HGB Conc 28.3 g/dL (31.6-35.5); Mean Corpuscular Hemoglobin 25.3 pg (28.0-33.3); Mean Corpuscular Volume 89.2 fL (83.0-100.0); Mean Platelet Volume 9.2 fL (9.4-12.4); Monocytes # 0.8 K/mcL (0.0-1.3); Monocytes % 7.7 %; Platelet Count 225 K/mcL (140-400); Red Blood Count 4.55 M/mcL (4.19-5.50); Segmented Neutrophils % 83.6 %
[2018-02-12 06:58] LABS: INR 1.4; Prothrombin Time 15.3 Seconds (9.4-12.1)
[2018-02-12 07:34] LABS: Hypochromasia Present (Not Present); Platelet Estimate Normal (Normal)
[2018-02-12 07:42] LABS: BUN/Creatinine Ratio 35 (6-26); Blood Urea Nitrogen 22 mg/dL (6-20); Calcium 8.9 mg/dL (8.6-10.3); Carbon Dioxide > 45 mEq/L (23-29); Chloride 83 mEq/L (98-107); Glucose 110 mg/dL (70-105); Magnesium 2.3 mg/dL (1.6-2.6); Osmolality,Calculated 294 (280-300); Potassium 3.6 mEq/L (3.5-5.1); Sodium 140 mEq/L (136-145); eGFR For Non-African Americans > 60 (> 60)
--- NOTE | 2018-02-12 08:05 | Pulmonology Progress Note ---
<AbbeyandrewJas romero W - Last Filed: 02/12/18 09:21> Date of Encounter: 02/12/18 Objective PUL Vital signs: Last Vital Signs Temp 97.9 F 02/12/18 07:46 Pulse 88 02/12/18 09:00 Resp 20 02/12/18 09:00 BP 136/61 02/12/18 09:00 Pulse Ox 97 02/12/18 09:00 Results - Laboratory Findings CBC and BMP: 02/12/18 06:40 02/12/18 06:40 ABG ABG pH 7.38 pH Units (7.32-7.45) 02/11/18 04:36 ABG pCO2 99 mmHg (35-45) H* 02/11/18 04:36 ABG pO2 76 mmHg (85-104) L 02/11/18 04:36 ABG O2 Saturation 93 % (95-98) L 02/11/18 04:36 PT/INR, D-dimer PT 15.3 Seconds (9.4-12.1) H D 02/12/18 06:40 Abnormal lab findings: Abnormal lab results Hgb 11.5 g/dL (12.9-16.9) L 02/12/18 06:40 MCH 25.3 pg (28.0-33.3) L 02/12/18 06:40 MCHC 28.3 g/dL (31.6-35.5) L 02/12/18 06:40 RDW 16.0 % (11.5-14.5) H 02/12/18 06:40 MPV 9.2 fL (9.4-12.4) L 02/12/18 06:40 Neutrophils # 9.0 K/mcL (1.6-8.9) H 02/12/18 06:40 Nucleated RBCs/100 WBC 0.3 /100 WBC (0) H 02/10/18 03:00 Polychromasia 1+ (Not Present) A 02/10/18 03:00 Hypochromasia Present (Not Present) A 02/12/18 06:40 Anisocytosis 1+ (Not Present) A 02/11/18 03:30 Stomatocytes 1+ (Not Present) A 02/11/18 03:30 PT 15.3 Seconds (9.4-12.1) H D 02/12/18 06:40 ABG pCO2 99 mmHg (35-45) H* 02/11/18 04:36 ABG pO2 76 mmHg (85-104) L 02/11/18 04:36 ABG HCO3 59 mEq/L (21-27) H 02/11/18 04:36 ABG Total CO2 62 mEq/L (20-26) H 02/11/18 04:36 ABG O2 Saturation 93 % (95-98) L 02/11/18 04:36 ABG Base Excess 27 mEq/L (-2 to 3) H 02/11/18 04:36 Chloride 83 mEq/L (98-107) L 02/12/18 06:40 Carbon Dioxide > 45 mEq/L (23-29) H* 02/12/18 06:40 BUN 22 mg/dL (6-20) H 02/12/18 06:40 Creatinine 0.63 mg/dL (0.70-1.30) L 02/12/18 06:40 BUN/Creatinine Ratio 35 (6-26) H 02/12/18 06:40 Glucose 110 mg/dL (70-105) H 02/12/18 06:40 POC Glucose 107 mg/dL (70-99) H 02/12/18 06:07 Phosphorus 4.6 mg/dL (2.7-4.5) H 02/10/18 03:00 - Clinical Findings Intake & Output: Intake & Output 02/11/18 02/12/18 02/12/18 23:59 07:59 15:59 Output Total 1600 / 1600 850 / 850 Balance -1600 / -1600 -850 / -850 Weight 219.4 kg Consult Discharge Plan - Plan Referrals: Jay Cool MD [Primary Care Provider] - - Attending Attestation I examined this patient and my medical decision-making was reviewed with the Resident Physician. I agree with the documented findings, disposition and treatment plan as described except to the extent set forth below. We independently had [id number] contact with the patient Patient seen and examined at bedside Labs, radiology, chart personally reviewed. Management was reviewed during multidisciplinary critical care rounds. 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 Pulm: Acute on chronic hypoxic hypercarbic respiratory failure improving on noninvasive ventilation with acceptable oxygenation today. He may need tracheostomy will need to have ongoing conversation with the patient both inpatient and outpatient regarding this given nearly a monthly admissions to the hospital for life-threatening respiratory failure. Complex physiology complicated by GAVIN/obesity hypoventilation syndrome COPD and CHF. Recommend BiPAP for at least 12 hours a day especially crucial during napping and with sleeping Cards:HFpEF continue diuresis blood pressure control electrophysiology to interrogate patient's pacemaker GI: Continue to monitor Nutrition: ADAT Renal: UOP Monitored, Cont to Trend sCr and monitor Electrolytes. ID: Does not appear to have active infection Heme/Onc: Restart long-term anticoagulation Endo: Glucose Monitored Integ/MSK: Skin Care per routine ICU Nursing Protocol to prevent ulcers. Lines: All lines examined without evidence of infection : [facility] CODE: Full code <Taylor Cherry - Last Filed: 02/12/18 13:15> Date of Encounter: 02/12/18 Time of Encounter: 08:04 Assessment and Plan (1) Acute and chronic respiratory failure with hypercapnia Current Visit: Yes Status: Acute He has history of COPD and presented to [place] ER due to shortness of breath. He was found to have respiratory acidosis with inadequate metabolic compensation with good arterial oxygen, at the ED in [place] yesterday his pH was 7.21, PCO2 of 137 and HCO3 of 54. He has respiratory acidosis with metabolic compensation. Most recent arterial blood gas from yesterday: pH of 7.38, PCO2 of 99, PaO2 of 76 and HCO3 of 59. At home he uses 4 liters of oxygen and Bipap, had not been using it because it was not working the past a few days. -Continue supplemental oxygen, will require BiPAP at night -Continue Duonebs and symbicort -Continue diuresis, decreased to 40 IV BID -bridge worker consulted, awaiting approval of home BiPAP (2) Pleural effusion Current Visit: Yes Status: Acute Repeat chest xray from yesterday showed some improvement in the opacity. There is still ongoing small right lower lung opacity and left lower lung, due to cardiomegaly it is difficult to assess effusion. Good urinary output, decreased lasix from 80 IV BID to 40 IV BID. Examined with an ultrasound and minimal visualized. -Continue 40 mg lasix IV BID -Strict I/Os -Continue fluid restriction of 1.5 liters (3) Obesity hypoventilation syndrome Current Visit: Yes Status: Chronic His BMI is 70.2 which is likely contributing to his respiratory status. He has history of home oxygen use of 4 liters and is on a home Bipap which was not working for days prior to his admission, likely contributed to his worsening of respiratory status. He likely also has obstructive sleep apnea given his risk factors. bridge worker consulted for a new BiPAP and chronic hypercapnic respiratory failure. -Continue BiPAP, at night -Continue supplemental oxygen, 6 liters right now and at home on 4, continue to wean -Repeat ABG if respiratory status changes -Needs lifestyle modification to prevent worsening of his respiratory state otherwise has poor mortality outcome (4) A-fib Current Visit: Yes Status: Chronic History of chronic afib. Currently normal sinus rhythm, has a pacemaker intact. On amiodarone for rhythm control. His INR is 1.4 this morning and will restart his home warfarin, was holding because the INR was elevated. -Continue home amiodarone -Continue warfarin, per pharmacy dosing -On Telemetry -EP cardiology will see him today for his pacemaker Qualifiers: Atrial fibrillation type: chronic Qualified Code(s): I48.2 - Chronic atrial fibrillation (5) Depression Current Visit: Yes Status: Chronic History of depression and stated he continues to take citalopram. -Continue home citalopram Qualifiers: Depression Type: major depressive disorder Major depression recurrence: unspecified whether recurrent Active/Remission status: remission status unspecified Qualified Code(s): F32.9 - Major depressive disorder, single episode, unspecified (6) DVT prophylaxis Current Visit: Yes Status: Acute Restarted his home warfarin for afib Subjective Principal diagnosis: shortness of breath Interval history: Mr. Rubalcava was examined at bedside this morning. He is resting in bed and overnight had no events. He is awake and alert. He is currently on 6 liters of oxygen and saturation at 96%. He has history of a fib and is currently in normal sinus rhythm, has been since his admission. He denied fever, chills, nausea, worsening shortness of breath or chest pain. Objective PUL Vital signs: Last Vital Signs Temp 97.9 F 02/12/18 07:46 Pulse 80 02/12/18 07:00 Resp 17 02/12/18 07:00 BP 115/98 08/13/18 07:00 Pulse Ox 97 02/12/18 07:00 General appearance: no acute distress Eyes: nonicteric ENT: oropharynx moist Auscultation: bilateral: diminished breath sounds (bibasilar, unable to accurately assess due to body habitus) Cardiovascular: regular rate and rhythm Gastrointestinal: normoactive bowel sounds, soft, non-tender Integumentary: other ( right lower leg area of erythema around the knee, chronic per patient) Extremities: no edema normal mental status mood appropriate, affect normal Results - Laboratory Findings CBC and BMP: 02/12/18 06:40 02/12/18 06:40 ABG ABG pH 7.38 pH Units (7.32-7.45) 02/11/18 04:36 ABG pCO2 99 mmHg (35-45) H* 02/11/18 04:36 ABG pO2 76 mmHg (85-104) L 02/11/18 04:36 ABG O2 Saturation 93 % (95-98) L 02/11/18 04:36 PT/INR, D-dimer PT 15.3 Seconds (9.4-12.1) H D 02/12/18 06:40 Abnormal lab findings: Abnormal lab results Hgb 11.5 g/dL (12.9-16.9) L 02/12/18 06:40 MCH 25.3 pg (28.0-33.3) L 02/12/18 06:40 MCHC 28.3 g/dL (31.6-35.5) L 02/12/18 06:40 RDW 16.0 % (11.5-14.5) H 02/12/18 06:40 MPV 9.2 fL (9.4-12.4) L 02/12/18 06:40 Neutrophils # 9.0 K/mcL (1.6-8.9) H 02/12/18 06:40 Nucleated RBCs/100 WBC 0.3 /100 WBC (0) H 02/10/18 03:00 Polychromasia 1+ (Not Present) A 02/10/18 03:00 Hypochromasia Present (Not Present) A 02/12/18 06:40 Anisocytosis 1+ (Not Present) A 02/11/18 03:30 Stomatocytes 1+ (Not Present) A 02/11/18 03:30 PT 15.3 Seconds (9.4-12.1) H D 02/12/18 06:40 ABG pCO2 99 mmHg (35-45) H* 02/11/18 04:36 ABG pO2 76 mmHg (85-104) L 02/11/18 04:36 ABG HCO3 59 mEq/L (21-27) H 02/11/18 04:36 ABG Total CO2 62 mEq/L (20-26) H 02/11/18 04:36 ABG O2 Saturation 93 % (95-98) L 02/11/18 04:36 ABG Base Excess 27 mEq/L (-2 to 3) H 02/11/18 04:36 Chloride 83 mEq/L (98-107) L 02/12/18 06:40 Carbon Dioxide > 45 mEq/L (23-29) H* 02/12/18 06:40 BUN 22 mg/dL (6-20) H 02/12/18 06:40 Creatinine 0.63 mg/dL (0.70-1.30) L 02/12/18 06:40 BUN/Creatinine Ratio 35 (6-26) H 02/12/18 06:40 Glucose 110 mg/dL (70-105) H 02/12/18 06:40 POC Glucose 107 mg/dL (70-99) H 02/12/18 06:07 Phosphorus 4.6 mg/dL (2.7-4.5) H 02/10/18 03:00 - Clinical Findings Intake & Output: Intake & Output 02/11/18 02/12/18 02/12/18 23:59 07:59 15:59 Output Total 1599 / 1599 850 / 850 Balance -1600 / -1600 -850 / -850 Weight 219.4 kg - VTE Documentation of Mechanical Device: Intermittent pneumatic compression device
[2018-02-12] MEDS: Furosemide 40 MG/4 ML VIAL IVP SCH ×2 (08:11→16:30)
[2018-02-12] MEDS: *HR* Amiodarone 200 MG TABLET PO SCH (08:16)
[2018-02-12] MEDS: Budesonide/Formoterol 80/4.5 MDI IH SCH ×2 (10:23→22:28)
--- NOTE | 2018-02-12 12:15 | Electrophysiology Consult Note ---
<Jorje Juan - Last Filed: 02/12/18 14:05> Date of Encounter: 02/12/18 Time of Encounter: 09:45 Assessment and Plan (1) ICD (implantable cardioverter-defibrillator) lead failure Current Visit: Yes Status: Acute Patient with ICD for h/o cardiomyoapthy per reports. ICD check 12/2017 showed battery met CARO 10/2017. RV lead threshold was also elevated. He has a known buddy lead that was re-called. Re-peat ICD check shows CARO a 2.62V. Last RV threshold captured in October 2017 was above range. Last TTE LVEF 50%. Despite the use of contrast enhancement, precise evaluation of LVEF was difficult due to poor image quality. Grossly, LVEF appeared grossly low normal. Mildly dilated left ventricle. Indeterminate diastolic function. Atypical septal motion possibly due to a paced rhythm. Grossly, the right ventricle appeared dilated with normal function. EKG shows NSR with RVH, QRS 112, QTc 441. No other records here. Patient previously followed with Dr. Nichols. 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 Patient will require lead extraction and replacement. Lead extraction would need to be completed at outside facility such as [facility]. Re-peat device check will be reviewed with Dr. Gonsales to determine timing of procedure. He is on coumadin and it is currently o hold. INR 1.4. Ideally he should be stable from respiratory standpoint. Qualifiers: Encounter type: initial encounter Qualified Code(s): T82.110A - Breakdown ( mechanical) of cardiac electrode, initial encounter (2) ICD (implantable cardioverter-defibrillator) battery depletion Current Visit: Yes Status: Acute Discussion w patient/family: The assessment and plan as outlined above was discussed with the patient and/or family members who expressed understanding and agreement. All questions were answered. Thank you for involving us in the care of your patient. Please call with any questions. History of Present Illness Consult date: 02/12/18 Requesting physician: Jas Frey Consult reason: ICD battery at CARO Chief complaint: SOB History of present illness: Mr. Rubalcava is a 57 year old male with past medical history of COPD, NICMP s/ p ICD, atrial fibrillation on coumadin, and GAVIN. He presented to the hospital with respiratory distress and was admitted to the ICU. He was diagnosed with acute on chronic respiratory failure with hypercapnea in the setting of COPD and obesity hypoventilation syndrome. He was also found to have opacity representing possible pleural effusion. He was treated with bipap and diuresis. Electrophysiology was consulted due to ICD beeping. Patient c/o intermittent dizziness. States he is concerned because he was told his battery only had 30 - 90 days left two months ago. His last device check in the cardiology office showed his device met CARO in October 2017. He also has a fedelis RV lead that is recalled and has a high RV threshold. He missed his last cardiology f/u to discuss ICD genrator change and lead replacement due to hospitalization for respiratory distress. On my exam he reports he is feeling better. He denies orthopnea. Reports BLE edema has improved. Denies chest pain. Past Med Surg Social Fam HX - Past Medical History Medical history: atrial fibrillation, CHF, COPD, hyperlipidemia, hypertension, other Additional medical history: deaf right ear Psychiatric history: anxiety, depression - Past Surgical History Surgical History: pacemaker/AICD - Social History Smoking Status: Former smoker Smokeless Tobacco Status: No Alcohol use: none Drug use: none - Family History Mother Family Member Ethnicity: Non- Living Status: Still Living Hx Family Cardiac Disorders: No Hx Family Respiratory Disorders: No Hx Family Cancer: Yes Hx Family GI Disorders: No Hx Family Endocrine Disorder: No Father Adopted: No Family Member Ethnicity: Non- Living Status: Hx Family Cancer: Yes Hx Family GI Disorders: No Medications and Allergies Atorvastatin Calcium [Lipitor] 80 mg PO DAILY 05/04/15 [History] Multivitamin/Ferrous Sulfate [One-Daily Fkmpa-Zhm-Brhb Tab] 1 tab PO DAILY 05/04 [History] Potassium Chloride [Klor-Con 10] 20 meq PO DAILY 05/05/16 [History] Albuterol Neb [Proventil Neb] 2.5 mg IH Q4HR PRN 14 Days vial.neb 05/07/16 [Rx] Citalopram [CeleXA] 40 mg PO DAILY #20 tablet 05/28/16 [Rx] Oxygen 4 l IH AD 12/12/16 [History] Amiodarone [Cordarone] 200 mg PO DAILY 11/23/17 [History] Fluticasone Propionate Nasal [Flonase] 1 spr NS BID 11/23/17 [History] Ipratropium/Albuterol Neb [Duoneb] 3 ml IH QIDR 30 Days #1 11/25/17 [Rx] Fluticasone/Salmeterol [Advair Hfa 45-21 Mcg Inhaler] 1 puff IH BID 01/04/18 [ History] Warfarin [Coumadin] 8 mg PO DAILY 01/04/18 [History] Furosemide [Lasix] 40 mg PO BID #60 tab 01/08/18 [Rx] predniSONE [PredniSONE] 10 mg PO DAILY #19 tablet 01/15/18 [Rx] 3 Allergy/AdvReac Type Severity Reaction Status Date / Time OLIVER Inhibitors AdvReac Cough Verified 02/09/18 12:02 All Systems Review: The remainder of the systems were reviewed and are negative Physical Examination Vital Signs, Last 4 Hours Temp Pulse Resp BP Pulse Ox 02/12/18 12:00 98.2 F 02/12/18 11:00 80 20 129/77 94 02/12/18 10:38 18 93 02/12/18 10:25 16 94 02/12/18 10:00 99 20 141/81 94 02/12/18 09:00 88 20 136/61 97 General: Conversant, No Apparent Distress HEENT: Atraumatic, Normocephaly, Mucus Membranes Moist Neck: No JVD, Normal carotid pulses Cardiac: Reg Rate and Rhythm, Normal S1 and S2, Other Lungs: Other (Respirations easy, lung sounds difficult to assess due to body habitus. Diminished on my exam) Neuro: Alert and responsive, No focal deficits noted Abdomen: Soft, Non-Tender Skin: Other (BLE extremity with brownish discoloration.) Musculoskeletal: No Chest Wall Tenderness Extremities: Other (Trace BLE edema) Results 02/12/18 06:40 02/12/18 06:40 Lab Results 02/11/18 02/12/18 02/12/18 11:00 06:40 06:40 WBC 10.8 Hgb 11.5 L Hct 40.6 Plt Count 225 INR 1.4 D Sodium 140 Potassium 3.8 Chloride 82 L Carbon Dioxide > 45 H* BUN 22 H Creatinine 0.65 L Glucose 98 Calcium 8.9 Magnesium 02/12/18 06:40 WBC Hgb Hct Plt Count INR Sodium 140 Potassium 3.6 Chloride 83 L Carbon Dioxide > 45 H* BUN 22 H Creatinine 0.63 L Glucose 110 H Calcium 8.9 Magnesium 2.3 - Imaging and Cardiology Echo: report reviewed - EKG Interpretation EKG results cardiology: personally reviewed Consult Discharge Plan - Plan Referrals: Jay Cool MD [Primary Care Provider] - <DruJesus Shore - Last Filed: 02/13/18 16:00> Date of Encounter: 02/13/18 - Attending Attestation I have personally performed a face to face evaluation on this patient. I have reviewed and agree with the care plan. History and Exam by me shows: ICD alarming due to at CARO (elective replacement). Also noted that he has a recalled ICD lead (buddy). Would recommend he consider extraction and replacement of ICD lead at time of gen change, this would need to be done at outside hospital. Assessment and Plan Discussion w patient/family: The assessment and plan as outlined above was discussed with the patient and/or family members who expressed understanding and agreement. All questions were answered. Thank you for involving us in the care of your patient. Please call with any questions. History of Present Illness History of present illness: Mr. Rubalcava is a 57 year old male All Systems Review: The remainder of the systems were reviewed and are negative Physical Examination Vital Signs, Last 4 Hours Resp Pulse Ox 02/13/18 15:40 92 02/13/18 14:05 19 90 Results 02/12/18 06:40 02/13/18 03:51 Lab Results 02/13/18 02/13/18 03:51 07:58 INR 1.1 Sodium 140 Potassium 3.5 Chloride 88 L Carbon Dioxide > 45 H* BUN 19 Creatinine 0.68 L Glucose 112 H Calcium 9.3 Magnesium 2.3
[2018-02-12] MEDS ORDERED: Naloxone 0.4 MG/ML INJ IVP PRN (15:57)
[2018-02-12] MEDS ORDERED: Furosemide 40 MG/4 ML VIAL IVP SCH (17:00)
[2018-02-12] MEDS ORDERED: *HR* Warfarin 3 MG TABLET PO ONE (18:00)
[2018-02-12] MEDS ORDERED: Warfarin perPT PO PRN ×2 (18:00)
[2018-02-13] MEDS: Ipratropium/Albuterol Neb 3 ML IH SCH ×4 (04:08→22:23)
[2018-02-13 05:27] LABS: BUN/Creatinine Ratio 28 (6-26); Blood Urea Nitrogen 19 mg/dL (6-20); Calcium 9.3 mg/dL (8.6-10.3); Carbon Dioxide > 45 mEq/L (23-29); Chloride 88 mEq/L (98-107); Glucose 112 mg/dL (70-105); Magnesium 2.3 mg/dL (1.6-2.6); Osmolality,Calculated 293 (280-300); Potassium 3.5 mEq/L (3.5-5.1); Sodium 140 mEq/L (136-145); eGFR For Non-African Americans > 60 (> 60)
--- NOTE | 2018-02-13 07:34 | Pulmonology Progress Note ---
<TkJas W - Last Filed: 02/13/18 09:56> Date of Encounter: 02/13/18 Objective PUL Vital signs: Last Vital Signs Temp 98.2 F 02/13/18 06:56 Pulse 91 02/13/18 06:56 Resp 18 02/13/18 06:56 BP 124/72 02/13/18 06:56 Pulse Ox 93 02/13/18 06:56 Results - Laboratory Findings CBC and BMP: 02/12/18 06:40 02/13/18 03:51 ABG ABG pH 7.38 pH Units (7.32-7.45) 02/11/18 04:36 ABG pCO2 99 mmHg (35-45) H* 02/11/18 04:36 ABG pO2 76 mmHg (85-104) L 02/11/18 04:36 ABG O2 Saturation 93 % (95-98) L 02/11/18 04:36 PT/INR, D-dimer PT 12.9 Seconds (9.4-12.1) H 02/13/18 07:58 Abnormal lab findings: Abnormal lab results Hgb 11.5 g/dL (12.9-16.9) L 02/12/18 06:40 MCH 25.3 pg (28.0-33.3) L 02/12/18 06:40 MCHC 28.3 g/dL (31.6-35.5) L 02/12/18 06:40 RDW 16.0 % (11.5-14.5) H 02/12/18 06:40 MPV 9.2 fL (9.4-12.4) L 02/12/18 06:40 Neutrophils # 9.0 K/mcL (1.6-8.9) H 02/12/18 06:40 Nucleated RBCs/100 WBC 0.3 /100 WBC (0) H 02/10/18 03:00 Polychromasia 1+ (Not Present) A 02/10/18 03:00 Hypochromasia Present (Not Present) A 02/12/18 06:40 Anisocytosis 1+ (Not Present) A 02/11/18 03:30 Stomatocytes 1+ (Not Present) A 02/11/18 03:30 PT 12.9 Seconds (9.4-12.1) H 02/13/18 07:58 ABG pCO2 99 mmHg (35-45) H* 02/11/18 04:36 ABG pO2 76 mmHg (85-104) L 02/11/18 04:36 ABG HCO3 59 mEq/L (21-27) H 02/11/18 04:36 ABG Total CO2 62 mEq/L (20-26) H 02/11/18 04:36 ABG O2 Saturation 93 % (95-98) L 02/11/18 04:36 ABG Base Excess 27 mEq/L (-2 to 3) H 02/11/18 04:36 Chloride 88 mEq/L (98-107) L 02/13/18 03:51 Carbon Dioxide > 45 mEq/L (23-29) H* 02/13/18 03:51 Creatinine 0.68 mg/dL (0.70-1.30) L 02/13/18 03:51 BUN/Creatinine Ratio 28 (6-26) H 02/13/18 03:51 Glucose 112 mg/dL (70-105) H 02/13/18 03:51 POC Glucose 127 mg/dL (70-99) H 02/12/18 11:52 Phosphorus 4.6 mg/dL (2.7-4.5) H 02/10/18 03:00 - Clinical Findings Intake & Output: Intake & Output 02/12/18 02/13/18 02/13/18 23:59 07:59 15:59 Intake Total 30 / 30 120 / 120 Output Total 1000 / 1000 900 / 900 Balance -970 / -970 -900 / -900 120 / 120 Consult Discharge Plan - Plan Referrals: Jay Cool MD [Primary Care Provider] - - Attending Attestation I examined this patient and my medical decision-making was reviewed with the Resident Physician. I agree with the documented findings, disposition and treatment plan as described except to the extent set forth below. We independently had [id number] contact with the patient Patient seen and examined at bedside Labs, radiology, chart personally reviewed. Impression: Acute on chronic hypoxic hypercapnic respiratory failure Decompensated heart failure with preserved ejection fraction COPD GAVIN/OHS Recs: Pending overnight BiPAP qualification to go home on the noninvasive ventilation for a total of 12 hours including napping and sleeping daily current settings of 20/10 with FiO2 bleed to keep saturation greater than 88% Continue schedule bronchodilators Continue diuresis today can likely transition to oral Lasix in the next 24-48 hours Outpatient polysomnogram for BiPAP titration He also need outpatient pulmonary follow-up in 1-2 weeks <Taylor Cherry - Last Filed: 02/13/18 14:02> Date of Encounter: 02/13/18 Time of Encounter: 08:29 Assessment and Plan (1) Acute and chronic respiratory failure with hypercapnia Current Visit: Yes Status: Acute He has history of COPD and presented to [place] ER due to shortness of breath. He was found to have respiratory acidosis with inadequate metabolic compensation with good arterial oxygen, at the ED in [place] yesterday his pH was 7.21, PCO2 of 137 and HCO3 of 54. He has respiratory acidosis with metabolic compensation. Most recent arterial blood gas from two days ago: pH of 7.38, PCO2 of 99, PaO2 of 76 and HCO3 of 59. At home he uses 4 liters of oxygen and Bipap, had not been using it because it was not working the past a few days. 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 There is still ongoing small right lower lung opacity and left lower lung; due to cardiomegaly it is difficult to assess effusion. Continues to have good urinary output, decreased lasix from 80 IV BID to 40 IV BID yesterday. -Continue 40 mg lasix IV BID -Can discontinue xiong prior to discharge -Continue fluid restriction of 1.5 liters (3) Obesity hypoventilation syndrome Current Visit: Yes Status: Chronic His BMI is 70.2 which is likely contributing to his respiratory status. He has history of home oxygen use of 4 liters and is on a home Bipap which was not working for days prior to his admission, likely contributed to his worsening of respiratory status. He likely also has obstructive sleep apnea given his risk factors. skip pit worker consulted for a new BiPAP and chronic hypercapnic respiratory failure. Had a discussion with him about lifestyle changes, such as diet modifications and implementing exercises as his increased weight puts him at risk for increased mortality. -Continue BiPAP, at night and any time napping -Continue supplemental oxygen, 6 liters right now and at home on 4, continue to wean -Will require 6 minute walk test for a new oxygen qualification prior to discharge -Repeat ABG if respiratory status changes -Needs lifestyle modification to prevent worsening of his respiratory state otherwise has poor mortality outcome (4) A-fib Current Visit: Yes Status: Chronic History of chronic afib. Currently normal sinus rhythm, has a pacemaker intact. On amiodarone for rhythm control. His INR is 1.1 this morning and restarted home warfarin by pharmacy dosing. -Continue home amiodarone -Continue warfarin, per pharmacy dosing -On Telemetry -EP cardiology saw him and recommended outpatient follow up outpatient at [facility] to change extract and replace lead Qualifiers: Atrial fibrillation type: chronic Qualified Code(s): I48.2 - Chronic atrial fibrillation (5) Depression Current Visit: Yes Status: Chronic History of depression and stated he continues to take citalopram. -Continue home citalopram Qualifiers: Depression Type: major depressive disorder Major depression recurrence: unspecified whether recurrent Active/Remission status: remission status unspecified Qualified Code(s): F32.9 - Major depressive disorder, single episode, unspecified (6) DVT prophylaxis Current Visit: Yes Status: Acute Restarted his home warfarin for afib Subjective Principal diagnosis: shortness of breath Interval history: Mr. Rubalcava was examined at bedside chair this morning. He is awake and alert. He rested comfortably overnight. He was on BiPAP overnight and this morning is on 6 liters of nasal cannula. He is currently on 6 liters of oxygen and saturation at 93%. He has history of a fib and is currently in normal sinus rhythm, has been since his admission. He denied fever, chills, nausea, worsening shortness of breath or chest pain. His warfarin is restarted at pharmacy to dose. Objective PUL Vital signs: Last Vital Signs Temp 98.2 F 02/13/18 06:56 Pulse 91 02/13/18 06:56 Resp 18 02/13/18 06:56 BP 124/72 02/13/18 06:56 Pulse Ox 93 02/13/18 06:56 General appearance: no acute distress Eyes: nonicteric ENT: oropharynx moist Auscultation: bilateral: rhonchi (Rhonchi at all lung lobes) Cardiovascular: regular rate and rhythm Gastrointestinal: hypoactive bowel sounds, non-tender Extremities: pulses normal, other (venous stasis of bialateral lower extremities ) normal mental status mood appropriate, affect normal Results - Laboratory Findings CBC and BMP: 02/12/18 06:40 02/13/18 03:51 ABG ABG pH 7.38 pH Units (7.32-7.45) 02/11/18 04:36 ABG pCO2 99 mmHg (35-45) H* 02/11/18 04:36 ABG pO2 76 mmHg (85-104) L 02/11/18 04:36 ABG O2 Saturation 93 % (95-98) L 02/11/18 04:36 PT/INR, D-dimer PT 15.3 Seconds (9.4-12.1) H D 02/12/18 06:40 Abnormal lab findings: Abnormal lab results Hgb 11.5 g/dL (12.9-16.9) L 02/12/18 06:40 MCH 25.3 pg (28.0-33.3) L 02/12/18 06:40 MCHC 28.3 g/dL (31.6-35.5) L 02/12/18 06:40 RDW 16.0 % (11.5-14.5) H 02/12/18 06:40 MPV 9.2 fL (9.4-12.4) L 02/12/18 06:40 Neutrophils # 9.0 K/mcL (1.6-8.9) H 02/12/18 06:40 Nucleated RBCs/100 WBC 0.3 /100 WBC (0) H 02/10/18 03:00 Polychromasia 1+ (Not Present) A 02/10/18 03:00 Hypochromasia Present (Not Present) A 02/12/18 06:40 Anisocytosis 1+ (Not Present) A 02/11/18 03:30 Stomatocytes 1+ (Not Present) A 02/11/18 03:30 PT 15.3 Seconds (9.4-12.1) H D 02/12/18 06:40 ABG pCO2 99 mmHg (35-45) H* 02/11/18 04:36 ABG pO2 76 mmHg (85-104) L 02/11/18 04:36 ABG HCO3 59 mEq/L (21-27) H 02/11/18 04:36 ABG Total CO2 62 mEq/L (20-26) H 02/11/18 04:36 ABG O2 Saturation 93 % (95-98) L 02/11/18 04:36 ABG Base Excess 27 mEq/L (-2 to 3) H 02/11/18 04:36 Chloride 88 mEq/L (98-107) L 02/13/18 03:51 Carbon Dioxide > 45 mEq/L (23-29) H* 02/13/18 03:51 Creatinine 0.68 mg/dL (0.70-1.30) L 02/13/18 03:51 BUN/Creatinine Ratio 28 (6-26) H 02/13/18 03:51 Glucose 112 mg/dL (70-105) H 02/13/18 03:51 POC Glucose 127 mg/dL (70-99) H 02/12/18 11:52 Phosphorus 4.6 mg/dL (2.7-4.5) H 02/10/18 03:00 - Clinical Findings Intake & Output: Intake & Output 02/12/18 02/12/18 02/13/18 15:59 23:59 07:59 Intake Total 700 / 700 30 / 30 Output Total 1250 / 1250 1000 / 1000 900 / 900 Balance -550 / -550 -970 / -970 -900 / -900 - VTE Documentation of Mechanical Device: Intermittent pneumatic compression device
[2018-02-13 08:12] LABS: INR 1.1; Prothrombin Time 12.9 Seconds (9.4-12.1)
[2018-02-13] MEDS: Budesonide/Formoterol 80/4.5 MDI IH SCH ×2 (10:07→22:22)
[2018-02-13] MEDS: Furosemide 40 MG/4 ML VIAL IVP SCH ×2 (10:12→18:06)
[2018-02-13] MEDS: *HR* Amiodarone 200 MG TABLET PO SCH (10:12)
[2018-02-13] MEDS: Sennosides/Docusate Sodium TABLET PO SCH (10:12)
[2018-02-13] MEDS: Fluticasone Propionate Nasal 50 MCG/SPRAY BOTTLE NS SCH (13:19)
--- NOTE | 2018-02-13 14:01 | Internal Med Progress Note ---
Hospitalist Progress Note - Encounter Date of Encounter: 02/13/18 Time of Encounter: 14:00 - Subjective Interval History: Transferred out of the ICU overnight - Exam Vitals: Temp Pulse Resp BP Pulse Ox 98.0 F 90 17 137/70 90 02/13/18 11:13 02/13/18 11:13 02/13/18 11:13 02/13/18 11:13 02/13/18 11:13 Exam: General appearance: no acute distress Eyes: nonicteric ENT: oropharynx moist RESP. On BIPAP Auscultation: bilateral: rhonchi (Rhonchi at all lung lobes) Cardiovascular: regular rate and rhythm Gastrointestinal: hypoactive bowel sounds, non-tender Extremities: pulses normal, other (venous stasis of bialateral lower extremities ) normal mental status mood appropriate, affect normal - Assessment and Plan (1) Acute and chronic respiratory failure with hypercapnia Current Visit: Yes Status: Acute Assessment and Plan: History of COPD and presented to [place] ER due to shortness of breath. He was found to have respiratory acidosis with inadequate metabolic compensation with good arterial oxygen, at the ED in [place] yesterday his pH was 7.21, PCO2 of 137 and HCO3 of 54. Continue supplemental oxygen when awake and BiPAP at night/ Continue duobnebs and symbicort. We qualified patient for BIPAP and home O2 based on ABG. Due to severity if patient's worsening chronic respiratory failure, consequent of COPD, patient will require a home ventilator Despites currrent use of BIPAP, patient has continued to be readmittted to the hospital and may benefit from a non invasive ventilator (2) ICD (implantable cardioverter-defibrillator) battery depletion Current Visit: Yes Status: Acute Assessment and Plan: Per cardiology, patient will require lead extraction and replacement. Patient has been referred to [facility] and cardiology office notified to set up (3) Pleural effusion Current Visit: Yes Status: Acute Assessment and Plan: Clinically better due to better ability to auscultate and great outputs. There is still ongoing small right lower lung opacity and left lower lung; due to cardiomegaly it is difficult to assess effusion. Continues to have good urinary output, decreased lasix from 80 IV BID to 40 IV BID yesterday. -Continue 40 mg lasix IV BID -Can discontinue xiong prior to discharge -Continue fluid restriction of 1.5 liters 02/13. Continue to monitor output on lasix (4) A-fib Current Visit: Yes Status: Chronic Assessment and Plan: Continue home amiodarone and warfarin (5) Obesity hypoventilation syndrome Current Visit: Yes Status: Chronic Assessment and Plan: BMI is 70.2. Continue BiPAP, at night and any time napping -Continue supplemental oxygen, 6 liters right now and at home on 4, continue to wean -Will require 6 minute walk test for a new oxygen qualification prior to discharge -Repeat ABG if respiratory status changes -Needs lifestyle modification to prevent worsening of his respiratory state otherwise has poor mortality outcome. Plan for home ventilator due to frequent readmissions (6) DVT prophylaxis Current Visit: Yes Status: Acute Assessment and Plan: On coumadin (7) Heart failure with preserved ejection fraction Current Visit: No Status: Acute Assessment and Plan: With acute diastolic CHF. Continue lasix - Time Spent with Patient Total time spent is greater than 50% in coordination of care (as documented) at patient's floor/unit and/or counseling patient: Internal Medicine: Result - Labs CBC & Chem 7: 02/12/18 06:40 02/13/18 03:51 Labs: BMP 02/13/18 03:51 Sodium 140 Potassium 3.5 Chloride 88 L Carbon Dioxide > 45 H* BUN 19 Creatinine 0.68 L Glucose 112 H Calcium 9.3 - ABG Interpretation ABG results: ABG ABG pH 7.38 pH Units (7.32-7.45) 02/11/18 04:36 ABG pCO2 99 mmHg (35-45) H* 02/11/18 04:36 ABG pO2 76 mmHg (85-104) L 02/11/18 04:36 ABG O2 Saturation 93 % (95-98) L 02/11/18 04:36 PT/INR, D-dimer PT 12.9 Seconds (9.4-12.1) H 02/13/18 07:58 - VTE Documentation of Mechanical Device: Intermittent pneumatic compression device Consult Discharge Plan - Plan Referrals: Jay Cool MD [Primary Care Provider] - (4) A-fib Qualifiers: Atrial fibrillation type: chronic Qualified Code(s): I48.2 - Chronic atrial fibrillation
--- NOTE | 2018-02-13 15:11 | Electrophysiology ProgressNote ---
Date of Encounter: 02/13/18 Time of Encounter: 15:07 Assessment and Plan (1) ICD (implantable cardioverter-defibrillator) lead failure Current Visit: Yes Status: Acute Patient with ICD for h/o cardiomyoapthy per reports. ICD check 12/2017 showed battery met CARO 10/2017. RV lead threshold was also elevated. He has a known buddy lead that was re-called. Re-peat ICD check shows CARO a 2.62V. Last RV threshold captured in October 2017 was above range. Last TTE LVEF 50%. Despite the use of contrast enhancement, precise evaluation of LVEF was difficult due to poor image quality. Grossly, LVEF appeared grossly low normal. Mildly dilated left ventricle. Indeterminate diastolic function. Atypical septal motion possibly due to a paced rhythm. Grossly, the right ventricle appeared dilated with normal function. EKG shows NSR with RVH, QRS 112, QTc 441. No other records here. Patient previously followed with Dr. Nichols. 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 Patient will require lead extraction and replacement. Lead extraction would need to be completed at outside facility . Discussed with Dr. Jesus Gonsales. Patient is recommended for out-pt referral to [facility] to see Dr. Etienne. Cardiology office notified to set up. Please call with questions. EP signing off. Qualifiers: Encounter type: initial encounter Qualified Code(s): T82.110A - Breakdown ( mechanical) of cardiac electrode, initial encounter (2) ICD (implantable cardioverter-defibrillator) battery depletion Current Visit: Yes Status: Acute Discussion w patient/family: The assessment and plan as outlined above was discussed with the patient and/or family members who expressed understanding and agreement. All questions were answered. Thank you for involving us in the care of your patient. Please call with any questions. Subjective Principal diagnosis: shortness of breath Interval history: Patient reports no events overnight. He is laying flat with no distress. Objective Vital Signs, Last 4 Hours Temp Pulse Resp BP Pulse Ox 02/13/18 14:05 19 90 02/13/18 11:13 98.0 F 90 17 137/70 90 General: Conversant, No Apparent Distress, Other (drowsy) HEENT: Atraumatic, Normocephaly, Mucus Membranes Moist Neck: No JVD, Normal carotid pulses Cardiac: Reg Rate and Rhythm, Normal S1 and S2, No Murmur Lungs: Normal Breath Sounds, No Wheeze, Rales, Rhonchi, Other (diminished) Neuro: Alert and responsive, No focal deficits noted Abdomen: Soft, Non-Tender Skin: No rashes noted on visualized skin Musculoskeletal: No Chest Wall Tenderness Extremities: Other (trace BLE edema, discoloration of BLE. ) Results 02/12/18 06:40 02/13/18 03:51 Lab Results 02/13/18 02/13/18 03:51 07:58 INR 1.1 Sodium 140 Potassium 3.5 Chloride 88 L Carbon Dioxide > 45 H* BUN 19 Creatinine 0.68 L Glucose 112 H Calcium 9.3 Magnesium 2.3 - Imaging and Cardiology Echo: report reviewed - VTE Documentation of Mechanical Device: Intermittent pneumatic compression device Consult Discharge Plan - Plan Referrals: Jay Cool MD [Primary Care Provider] -
[2018-02-13] MEDS ORDERED: *HR* Warfarin 3 MG TABLET PO ONE (18:00)
[2018-02-14 03:58] LABS: Basophils % 0.3 %; Eosinophils # 0.2 K/mcL (0.0-0.6); Eosinophils % 1.8 %; Hematocrit 40.2 % (37.5-50.1); Hemoglobin 11.6 g/dL (12.9-16.9); Immature Granulocytes % 0.5 % (0-4); Lymphocytes # 1.1 K/mcL (0.6-4.6); Lymphocytes % 9.5 %; Mean Corpuscular HGB Conc 28.9 g/dL (31.6-35.5); Mean Corpuscular Hemoglobin 24.9 pg (28.0-33.3); Mean Corpuscular Volume 86.3 fL (83.0-100.0); Mean Platelet Volume 9.8 fL (9.4-12.4); Monocytes # 1.1 K/mcL (0.0-1.3); Monocytes % 9.1 %; Neutrophils # 9.3 K/mcL (1.6-8.9); Platelet Count 225 K/mcL (140-400); Red Blood Count 4.66 M/mcL (4.19-5.50); Red Cell Distribution Width 15.9 % (11.5-14.5); Segmented Neutrophils % 78.8 %
[2018-02-14 04:02] LABS: INR 1.1; Prothrombin Time 12.2 Seconds (9.4-12.1)
[2018-02-14] MEDS: Ipratropium/Albuterol Neb 3 ML IH SCH ×4 (04:06→22:28)
[2018-02-14 04:22] LABS: Platelet Estimate Normal (Normal); Polychromasia 1+ (Not Present)
[2018-02-14 05:41] LABS: BUN/Creatinine Ratio 31 (6-26); Blood Urea Nitrogen 20 mg/dL (6-20); Calcium 9.3 mg/dL (8.6-10.3); Carbon Dioxide > 45 mEq/L (23-29); Chloride 91 mEq/L (98-107); Glucose 114 mg/dL (70-105); Magnesium 2.2 mg/dL (1.6-2.6); Osmolality,Calculated 299 (280-300); Phosphorous 4.1 mg/dL (2.7-4.5); Potassium 3.7 mEq/L (3.5-5.1); Sodium 143 mEq/L (136-145); eGFR For Non-African Americans > 60 (> 60)
[2018-02-14] MEDS: Sennosides/Docusate Sodium TABLET PO SCH (08:34)
[2018-02-14] MEDS: Fluticasone Propionate Nasal 50 MCG/SPRAY BOTTLE NS SCH (08:35)
[2018-02-14] MEDS: *HR* Amiodarone 200 MG TABLET PO SCH (08:35)
[2018-02-14] MEDS: Budesonide/Formoterol 80/4.5 MDI IH SCH ×2 (10:48→22:28)
[2018-02-14] MEDS: Furosemide 40 MG TABLET PO SCH ×2 (11:18→17:00)
--- NOTE | 2018-02-14 11:20 | Internal Med Progress Note ---
Hospitalist Progress Note - Encounter Date of Encounter: 02/14/18 Time of Encounter: 11:00 - Subjective Interval History: Transferred out of the ICU overnight - Exam Vitals: Temp Pulse Resp BP Pulse Ox 97.5 F L 102 17 99/62 99 02/14/18 11:04 02/14/18 11:04 02/14/18 11:04 02/14/18 11:04 02/14/18 11:04 Exam: General appearance: no acute distress Eyes: nonicteric ENT: oropharynx moist RESP. On BIPAP Auscultation: bilateral: rhonchi (Rhonchi at all lung lobes) Cardiovascular: regular rate and rhythm Gastrointestinal: hypoactive bowel sounds, non-tender Extremities: pulses normal, other (venous stasis of bialateral lower extremities ) normal mental status mood appropriate, affect normal - Assessment and Plan (1) Acute and chronic respiratory failure with hypercapnia Current Visit: Yes Status: Acute Assessment and Plan: History of COPD and presented to [place] ER due to shortness of breath. He was found to have respiratory acidosis with inadequate metabolic compensation with good arterial oxygen, at the ED in [place] yesterday his pH was 7.21, PCO2 of 137 and HCO3 of 54. Continue supplemental oxygen when awake and BiPAP at night/ Continue duobnebs and symbicort. We qualified patient for BIPAP and home O2 based on ABG. Due to severity if patient's worsening chronic respiratory failure, consequent of COPD, patient will require a home ventilator Despites currrent use of BIPAP, patient has continued to be readmittted to the hospital and may benefit from a non invasive ventilator. 02/14. Continue BIPAP therapy today, plan for discharge in am (2) ICD (implantable cardioverter-defibrillator) battery depletion Current Visit: Yes Status: Acute Assessment and Plan: Per cardiology, patient will require lead extraction and replacement. Patient has been referred to [facility] and cardiology office notified to set up (3) Pleural effusion Current Visit: Yes Status: Acute Assessment and Plan: Clinically better due to better ability to auscultate and great outputs. There is still ongoing small right lower lung opacity and left lower lung; due to cardiomegaly it is difficult to assess effusion. Continues to have good urinary output, decreased lasix from 80 IV BID to 40 IV BID yesterday. -Continue 40 mg lasix IV BID -Can discontinue xiong prior to discharge -Continue fluid restriction of 1.5 liters 02/13. Continue to monitor output on lasix (4) A-fib Current Visit: Yes Status: Chronic Assessment and Plan: Continue home amiodarone and warfarin (5) Obesity hypoventilation syndrome Current Visit: Yes Status: Chronic Assessment and Plan: BMI is 70.2. Continue BiPAP, at night and any time napping -Continue supplemental oxygen, 6 liters right now and at home on 4, continue to wean -Will require 6 minute walk test for a new oxygen qualification prior to discharge -Repeat ABG if respiratory status changes -Needs lifestyle modification to prevent worsening of his respiratory state otherwise has poor mortality outcome. Plan for home ventilator due to frequent readmissions (6) DVT prophylaxis Current Visit: Yes Status: Acute Assessment and Plan: On coumadin (7) Heart failure with preserved ejection fraction Current Visit: No Status: Acute Assessment and Plan: With acute diastolic CHF. Continue lasix - Time Spent with Patient Total time spent is greater than 50% in coordination of care (as documented) at patient's floor/unit and/or counseling patient: Internal Medicine: Result - Labs CBC & Chem 7: 02/14/18 03:45 02/14/18 05:00 Labs: Short CBC 02/14/18 Range/Units 03:45 WBC 11.8 H (4.3-11.1) K/mcL Hgb 11.6 L (12.9-16.9) g/dL Hct 40.2 (37.5-50.1) % Plt Count 225 (140-400) K/mcL Neutrophils # 9.3 H (1.6-8.9) K/mcL BMP 02/14/18 05:00 Sodium 143 Potassium 3.7 Chloride 91 L Carbon Dioxide > 45 H* BUN 20 Creatinine 0.64 L Glucose 114 H Calcium 9.3 - ABG Interpretation ABG results: ABG ABG pH 7.38 pH Units (7.32-7.45) 02/11/18 04:36 ABG pCO2 99 mmHg (35-45) H* 02/11/18 04:36 ABG pO2 76 mmHg (85-104) L 02/11/18 04:36 ABG O2 Saturation 93 % (95-98) L 02/11/18 04:36 PT/INR, D-dimer PT 12.2 Seconds (9.4-12.1) H 02/14/18 03:45 - VTE Documentation of Mechanical Device: Intermittent pneumatic compression device Consult Discharge Plan - Plan Referrals: Jay Cool MD [Primary Care Provider] - (4) A-fib Qualifiers: Atrial fibrillation type: chronic Qualified Code(s): I48.2 - Chronic atrial fibrillation
[2018-02-14] MEDS ORDERED: *HR* Warfarin 3 MG TABLET PO ONE (18:00)
[2018-02-15 03:49] LABS: Basophils % 0.3 %; Eosinophils # 0.2 K/mcL (0.0-0.6); Hematocrit 39.4 % (37.5-50.1); Hemoglobin 11.5 g/dL (12.9-16.9); INR 1.2; Immature Granulocytes % 0.7 % (0-4); Lymphocytes # 1.4 K/mcL (0.6-4.6); Lymphocytes % 11.2 %; Mean Corpuscular HGB Conc 29.2 g/dL (31.6-35.5); Mean Corpuscular Hemoglobin 25.7 pg (28.0-33.3); Mean Corpuscular Volume 87.9 fL (83.0-100.0); Mean Platelet Volume 9.5 fL (9.4-12.4); Monocytes # 1.1 K/mcL (0.0-1.3); Monocytes % 9.3 %; Neutrophils # 9.4 K/mcL (1.6-8.9); Platelet Count 220 K/mcL (140-400); Prothrombin Time 13.6 Seconds (9.4-12.1); Red Blood Count 4.48 M/mcL (4.19-5.50); Red Cell Distribution Width 15.9 % (11.5-14.5); Segmented Neutrophils % 76.5 %
[2018-02-15] MEDS: Ipratropium/Albuterol Neb 3 ML IH SCH ×2 (04:04→11:03)
[2018-02-15 04:19] LABS: BUN/Creatinine Ratio 36 (6-26); Blood Urea Nitrogen 24 mg/dL (6-20); Calcium 9.2 mg/dL (8.6-10.3); Chloride 92 mEq/L (98-107); Glucose 122 mg/dL (70-105); Magnesium 1.9 mg/dL (1.6-2.6); Osmolality,Calculated 297 (280-300); Phosphorous 3.4 mg/dL (2.7-4.5); Potassium 3.6 mEq/L (3.5-5.1); Sodium 141 mEq/L (136-145); eGFR For Non-African Americans > 60 (> 60)
[2018-02-15 04:42] LABS: Carbon Dioxide 45 mEq/L (23-29)
[2018-02-15] MEDS: Sennosides/Docusate Sodium TABLET PO SCH (08:13)
[2018-02-15] MEDS: Furosemide 40 MG TABLET PO SCH (08:13)
[2018-02-15] MEDS: *HR* Amiodarone 200 MG TABLET PO SCH (08:13)
[2018-02-15] MEDS: Fluticasone Propionate Nasal 50 MCG/SPRAY BOTTLE NS SCH (08:13)
--- NOTE | 2018-02-15 09:21 | Discharge Summary ---
Orders not resulted at time of discharge: Pending orders 02/09/18 11:56 Albumin,Pleural Fluid [BF] Routine Cell Count w Diff, Pleural Fld [BF] Routine Glucose,Pleural Fluid [BF] Routine LDH,Pleural Fluid [BF] Routine Total Protein,Pleural Fluid [BF] Routine pH,Pleural Fluid [BF] Routine Cytology [PTH] Routine 02/09/18 11:58 Culture,Body Fluid [RM] Routine Gram Stain [RM] Routine 02/16/18 04:00 Basic Metabolic Panel AM 0400 CBC [Complete Blood Count] [HEME] AM 0400 Magnesium AM 0400 PT/INR [Prothrombin Time INR] [COAG] AM 0400 Phosphorous AM 0400 02/17/18 04:00 Basic Metabolic Panel AM 0400 CBC [Complete Blood Count] [HEME] AM 0400 Magnesium AM 0400 PT/INR [Prothrombin Time INR] [COAG] AM 0400 Phosphorous AM 0400 02/18/18 04:00 Basic Metabolic Panel AM 0400 CBC [Complete Blood Count] [HEME] AM 0400 Magnesium AM 0400 Phosphorous AM 0400 02/19/18 04:00 Basic Metabolic Panel AM 0400 CBC [Complete Blood Count] [HEME] AM 0400 Magnesium AM 0400 Phosphorous AM 0400 Date of Encounter: 02/15/18 Time of Encounter: 09:20 - Discharge Diagnosis (1) Acute and chronic respiratory failure with hypercapnia Priority: Primary Status: Acute Assessment and Plan: 57 year old male with history of COPD and presented to [place] ER due to shortness of breath. He was found to have respiratory acidosis with inadequate metabolic compensation with good arterial oxygen. At the ED in [place] yesterday his pH was 7.21, PCO2 of 137 and HCO3 of 54. He was admitted to the ICU with acute on chronic hypercapneic respiratory failure likely 2/2 to obstructive sleep apnea and COPD exacerbation and started and was started on BIPAP, duo nebs and symbicort. He was also assessed with acute diastolic CHF with preserved EF due to pleural effusions bilaterally and started on 80mg IV lasix BID. He made a gradual improvement on his nebs, BIPAP and lasix and was transferred to the floor on 02/13. We continued his treatment with BIPAP and nebs and he continued to improve. His lasix was gradually tapered down to his home regimen. He also qualified for home BIPAP as well as a home ventilator as a result of his frequent and severe COPD exacerbations and ABG results with severe hypercapnia . His home ventilator was set up prior to discharge. He was also seen by cardiology for ICD assessment. He had missed his last follow up to discuss ICD generator change and lead replacement due to hospitalization for respiratory distress. It was determined he will require a lead extraction and replacement as an outpatient. He has been referred to [facility] to follow up with Dr Etienne. 35minutes was spent discharging this patient. (2) ICD (implantable cardioverter-defibrillator) battery depletion Priority: Secondary Status: Acute (3) Pleural effusion Priority: Secondary Status: Acute (4) A-fib Priority: Secondary Status: Chronic Qualifiers: Atrial fibrillation type: chronic Qualified Code(s): I48.2 - Chronic atrial fibrillation (5) Obesity hypoventilation syndrome Priority: Secondary Status: Chronic (6) DVT prophylaxis Priority: Secondary Status: Acute (7) Heart failure with preserved ejection fraction Priority: Secondary Status: Acute Hospital course: Mr. Rubalcava is a 57 year old male - Time Spent with Patient Total time spent providing and/or coordinating discharge services: - Discharge Medications Prescriptions: GuaiFENesin ER [Mucinex] 600 mg PO BID #30 tbbp.12hr Home Medications: Atorvastatin Calcium [Lipitor] 80 mg PO DAILY 05/04/15 [History] Multivitamin/Ferrous Sulfate [One-Daily Juvlj-Wle-Axns Tab] 1 tab PO DAILY 05/04 [History] Potassium Chloride [Klor-Con 10] 20 meq PO DAILY 05/05/16 [History] Albuterol Neb [Proventil Neb] 2.5 mg IH Q4HR PRN 14 Days vial.neb 05/07/16 [Rx] Citalopram [CeleXA] 40 mg PO DAILY #20 tablet 05/28/16 [Rx] Oxygen 4 l IH AD 12/12/16 [History] Amiodarone [Cordarone] 200 mg PO DAILY 11/23/17 [History] Fluticasone Propionate Nasal [Flonase] 1 spr NS BID 11/23/17 [History] Ipratropium/Albuterol Neb [Duoneb] 3 ml IH QIDR 30 Days #1 11/25/17 [Rx] Fluticasone/Salmeterol [Advair Hfa 45-21 Mcg Inhaler] 1 puff IH BID 01/04/18 [ History] Warfarin [Coumadin] 8 mg PO DAILY 01/04/18 [History] Furosemide [Lasix] 40 mg PO BID #60 tab 01/08/18 [Rx] predniSONE [PredniSONE] 10 mg PO DAILY #19 tablet 01/15/18 [Rx] GuaiFENesin ER [Mucinex] 600 mg PO BID #30 tbbp.12hr 02/15/18 [Rx] Allergies/Adverse Reactions: 3 Allergy/AdvReac Type Severity Reaction Status Date / Time OLIVER Inhibitors AdvReac Cough Verified 02/09/18 12:02 Date of admission: 02/09/18 10:13 Primary care physician: Jay Cool MD Consults: 02/10/18 10:24 Consult to [employer] [CONS] Routine Reason for SW Consult: Has chronic hypercapnic respiratory failure. His home bipap is not working and will require a new one. 02/10/18 10:26 Consult to Cardiology [CONS] Routine Comment: Consulting Provider: Cardiology [place] Reason for Consult: Has a pacemaker and patient feels it is not working and has an electrical sensation every morning. Call Completed: No - Constitutional Vitals: Temp Pulse Resp BP Pulse Ox 98.4 F 88 18 152/83 95 02/15/18 07:10 02/15/18 07:10 02/15/18 07:10 02/15/18 07:10 02/15/18 07:10 Exam: morbidly obese - Head Head exam: Present: atraumatic, normocephalic - Eye Eye exam: Present: PERRL, conjuntiva pink, sclera anicteric Pupils: Present: PERRL - Neck Neck exam general surgery: Present: supple, trachea midline. Absent: lymphadenopathy - Respiratory Respiratory exam: Present: CTAB. Absent: accessory muscle use, rales, rhonchi, wheezes Additional comments: on nasal cannula - Cardiovascular Cardiovascular exam: Present: RRR, +S1, +S2. Absent: diastolic murmur, gallop, rubs, systolic murmur - GI/Abdominal GI/Abdominal exam: Present: normal bowel sounds, soft, no peritoneal signs. Absent: distended, tenderness - Extremities Exam Extremities exam: Present: warm, radial pulses palpable and symmetrical. Absent : calf tenderness, cyanotic, pedal edema - Neurological Exam Neurological exam: Present: CN II-XII intact, oriented X3, no focal deficits. Absent: pronater drift, facial droop, speech deficit - Skin Skin exam: Present: dry, intact - Patient Status Disposition: Home, Self-Care Condition: Good - Discharge Instructions Instructions: How to Stop Smoking (GEN), Pleural Effusion (GEN), Pneumonia (DC) Follow Up With: Jay Cool MD [Primary Care Provider] - (office will contact for hospital follow up appointment...) - VTE Documentation of Mechanical Device: Intermittent pneumatic compression device
--- NOTE | 2018-02-15 09:22 | Physician Discharge Referral ---
Home Health/Hosp Referral Info Transfer to: Home Health - Diagnosis (1) Acute and chronic respiratory failure with hypercapnia Priority: Primary Status: Acute (2) ICD (implantable cardioverter-defibrillator) battery depletion Priority: Primary Status: Acute (3) Pleural effusion Priority: Primary Status: Acute (4) A-fib Priority: Primary Status: Chronic (5) Obesity hypoventilation syndrome Priority: Primary Status: Chronic (6) DVT prophylaxis Priority: Secondary Status: Acute (7) Heart failure with preserved ejection fraction Priority: Secondary Status: Acute - Respiratory Orders Smoking Cessation: Smoking cessation has been advised. For more information, call the [place] Tobacco Quit Line at 0-308-SNZP-NOW. - Diet/Nutrition Diet/Nutrition Orders: Cardiac - Services Needed Following services are medically necessary services: Nursing, Home Health Aide, Physical Therapy - Transfer Medications Prescriptions: GuaiFENesin ER [Mucinex] 600 mg PO BID #30 tbbp.12hr Home Medications: Atorvastatin Calcium [Lipitor] 80 mg PO DAILY 05/04/15 [History] Multivitamin/Ferrous Sulfate [One-Daily Kjhqk-Ckd-Dxup Tab] 1 tab PO DAILY 05/04 [History] Potassium Chloride [Klor-Con 10] 20 meq PO DAILY 05/05/16 [History] Albuterol Neb [Proventil Neb] 2.5 mg IH Q4HR PRN 14 Days vial.neb 05/07/16 [Rx] Citalopram [CeleXA] 40 mg PO DAILY #20 tablet 05/28/16 [Rx] Oxygen 4 l IH AD 12/12/16 [History] Amiodarone [Cordarone] 200 mg PO DAILY 11/23/17 [History] Fluticasone Propionate Nasal [Flonase] 1 spr NS BID 11/23/17 [History] Ipratropium/Albuterol Neb [Duoneb] 3 ml IH QIDR 30 Days #1 11/25/17 [Rx] Fluticasone/Salmeterol [Advair Hfa 45-21 Mcg Inhaler] 1 puff IH BID 01/04/18 [ History] Warfarin [Coumadin] 8 mg PO DAILY 01/04/18 [History] Furosemide [Lasix] 40 mg PO BID #60 tab 01/08/18 [Rx] predniSONE [PredniSONE] 10 mg PO DAILY #19 tablet 01/15/18 [Rx] GuaiFENesin ER [Mucinex] 600 mg PO BID #30 tbbp.12hr 02/15/18 [Rx] Allergies/Adverse Reactions: 3 Allergy/AdvReac Type Severity Reaction Status Date / Time OLIVER Inhibitors AdvReac Cough Verified 02/09/18 12:02 Certification: Further, I certify that my clinical findings support that this patient is homebound (i.e. absences from home require considerable and taxing effort and are for medical reasons or caodaism services or infrequently or short duration when for other reasons) because: Homebound Reason: Patient requires assistance of a person or device to safely leave home Attestation: My signature below is to certify that this patient is under my care and that I, or nurse practitioner, or a physician's hospital clinic assistant working with me, has a face-to -face encounter with this patient.
[2018-02-15] MEDS: Budesonide/Formoterol 80/4.5 MDI IH SCH (11:03)
[2018-02-15 11:14] VITALS: BP 137/69
[2018-02-15] MEDS ORDERED: *HR* Warfarin 4 MG TABLET PO ONE (18:00)
== END 2018-02-15 14:02 | disposition home or self-care (01) | DRG 189 ==
LOC: ICNU 10:13 → 2ANU 02-12 15:38
PROVIDERS: ADMIT Internal Medicine Pulmonary Disease; ATTEND Internal Medicine Pulmonary Disease

== ENCOUNTER 2018-03-12 16:12 | Observation (INO) ==
[2018-03-12] MEDS ORDERED: Ipratropium/Albuterol Neb 3 ML IH ONE (17:13)
[2018-03-12] MEDS ORDERED: methylPREDNISolone 125 MG/2 ML VIAL IVP ONE (17:13)
--- NOTE | 2018-03-12 17:16 | Emergency Department Note ---
Disposition Clinical Impression: Acute exacerbation of chronic obstructive airways disease, Acute hypercapnic respiratory failure CHF (congestive heart failure) Qualifiers: Heart failure type: unspecified Heart failure chronicity: unspecified Qualified Code(s): I50.9 - Heart failure, unspecified Disposition: Admitted As Inpatient Condition: Fair Referrals: Jay Cool MD [Primary Care Provider] - Forms: ED Satisfaction Letter SOB HPI - General Chief Complaint: ED Shortness of Breath/Dyspnea Stated Complaint: "RADU/copd " Time Seen by Provider: 03/12/18 16:58 Source: patient, family Mode of arrival: wheelchair Limitations: no limitations Nursing Notes Reviewed: Yes Vital Signs Reviewed: Yes - History of Present Illness 57-year-old male with a history of hypertension, oxygen dependent 6L COPD presents for evaluation of shortness of breath. Patient states he was recently admitted last month for similar complaints. Patient was discharged and felt better but noted worsening dyspnea since being discharged. Denies any fevers but has had a nonproductive cough. Patient does attribute some of dyspnea to his new BiPAP machine. Patient states he typically on 6 L nasal cannula. Patient notes increasing dyspnea with performing activities daily living. Patient also notes using his albuterol nebulizer more than every 4 hours. No current steroids or antibiotics. Patient denies any chest pain. Patient denies any nausea vomiting or diaphoresis. Follows with pulmonary here at [facility]. - Related Data Home Medications Medication Instructions Recorded Confirmed Atorvastatin Calcium [Lipitor] 80 mg PO DAILY 05/04/15 03/12/18 Multivitamin/Ferrous Sulfate 1 tab PO DAILY 05/04/15 03/12/18 [One-Daily Rgvyr-Ljk-Ntbn Tab] Potassium Chloride [Klor-Con 10] 20 meq PO DAILY 05/05/16 03/12/18 Oxygen 4 l IH AD 12/12/16 03/12/18 Amiodarone [Cordarone] 200 mg PO DAILY 11/23/17 03/12/18 Fluticasone Propionate Nasal 1 spr NS BID 11/23/17 03/12/18 [Flonase] Fluticasone/Salmeterol [Advair Hfa 1 puff IH BID 01/04/18 03/12/18 45-21 Mcg Inhaler] Warfarin [Coumadin] 8 mg PO DAILY 07/05/18 09/10/18 Previous Rx's Medication Instructions Recorded Albuterol Neb [Proventil Neb] 2.5 mg IH Q4HR PRN 14 Days 05/07/16 vial.neb Citalopram [CeleXA] 40 mg PO DAILY #20 tablet 05/28/16 Ipratropium/Albuterol Neb [Duoneb] 3 ml IH QIDR 30 Days #1 11/25/17 Furosemide [Lasix] 40 mg PO BID #60 tab 01/08/18 predniSONE [PredniSONE] 10 mg PO DAILY #19 tablet 01/15/18 GuaiFENesin ER [Mucinex] 600 mg PO BID #30 tbbp.12hr 02/15/18 Allergies Allergy/AdvReac Type Severity Reaction Status Date / Time OLIVER Inhibitors AdvReac Cough Verified 02/09/18 12:02 All systems ED: reviewed and negative except as stated. Constitutional: Denies: fever Cardiovascular: Denies: chest pain Respiratory: Reports: cough, dyspnea. Denies: sputum production Gastrointestinal: Denies: abdominal pain, nausea, vomiting Past Medical History - Past Medical History Source: patient, obtained from family Medical history: Reports: atrial fibrillation, CHF, COPD, hyperlipidemia, hypertension, other Surgical history: Reports: pacemaker/AICD Psychiatric history: Reports: anxiety, depression - Social History Smoking Status: Former smoker Smokeless Tobacco Status: No Alcohol use: Reports: none Drug use: Reports: none Physical Exam - General Limitations: no limitations General appearance: alert, in no apparent distress, obese - Head Head exam: atraumatic, normocephalic, normal inspection - Eye Eye exam: Present: normal appearance, PERRL, EOMI - ENT ENT exam: normal exam, mucous membranes moist - Neck Neck exam: Present: normal inspection - Chest Chest inspection: Present: normal inspection - Respiratory Respiratory exam: Present: accessory muscle use, other (Diffusely diminished breath sounds throughout) - Cardiovascular Cardiovascular exam: Present: regular rate, normal rhythm. Absent: systolic murmur - Abdominal Exam Abdominal exam: Present: soft, Non-Tender. Absent: guarding, rebound - Extremities Exam Extremities exam: Present: normal inspection, pedal edema (Trace, chronic venous stasis skin changes bilaterally.) - Neurological Exam Neurological exam: Present: alert, oriented X3 - Skin Skin exam: Present: warm, dry, intact, normal color Course Course Narrative: Patient seen and examined. Patient will get breathing treatments, steroids, chest x-ray. Patient does appear morbidly obese and likely benefit from BiPAP. Disposition likely admission for COPD. Patient's records were reviewed and showed that he had an ICU admission during the last hospital course for acute on chronic respiratory failure on BiPAP. - Reevaluation(s) Reevaluation #1: Patient seen resting comfortably. Patient's BiPAP settings of 14/7 will increase settings to 16/8 at 35% appears be good tidal volumes. Will continue to monitor. Patient is noted be hypercapnic. Time: 18:11 Vital Signs Temperature 97.8 F 03/12/18 16:31 Pulse Rate 89 03/12/18 16:31 Respiratory Rate 24 03/12/18 16:31 Blood Pressure 132/82 03/12/18 16:31 O2 Sat by Pulse Oximetry 95 03/12/18 16:31 Temperature 97.8 F 03/12/18 16:57 Pulse Rate 88 03/12/18 16:57 Respiratory Rate 16 03/12/18 17:26 Blood Pressure 133/72 03/12/18 17:26 O2 Sat by Pulse Oximetry 99 03/12/18 17:26 Oxygen Delivery Oxygen Delivery Nasal Cannula Shortness of Breath/Dyspnea - [facility] Narrative Medical decision making narrative: Patient presented with concerns of dyspnea. Patient does have a history of obstructive sleep apnea, CHF as well as COPD. Recent hospitalization requiring ICU admission. Notes worsening dyspnea since being discharged. No chest pain. Patient states much of his dyspnea is related to his CPAP at night. Patient feels that he is not getting enough oxygen. Patient has had a use increasing nebs at home. Does meet criteria for COPD exacerbation. Patient was placed on BiPAP. Patient CO2 was 103. Patient does not require any emergent airway interventions. Patient's resting comfortably on BiPAP. Patient chest x-ray shows some findings congestive heart failure. Patient was also diuresed. Given the patient's cardiopulmonary status the patient be admitted to the hospital service. Patient was not given any antibiotics at this point as the patient's symptoms possibly related to combination of COPD and heart failure. Patient was only given a single dose of Lasix in the ED given chest x-ray findings. Patient's lites are possibly related to some traction alkalosis with diuretics. Patient denies any history of bleeding and was noted to be anemic however appears to be chronic in nature. - Medical Records Medical records reviewed: Yes I reviewed the patient's medical records. 10/2017 Impressions: LVEF 50%. Despite the use of contrast enhancement, precise evaluation of LVEF was difficult due to poor image quality. Grossly, LVEF appeared grossly low normal. Mildly dilated left ventricle. Indeterminate diastolic function. Atypical septal motion possibly due to a paced rhythm. Grossly, the right ventricle appeared dilated with normal function. - Lab Data Result diagrams: 03/12/18 17:41 03/12/18 17:41 Lab Results 03/12/18 03/12/18 03/12/18 Range/Units 17:41 17:41 17:41 WBC 9.9 (4.3-11.1) K/mcL RBC 3.99 L (4.19-5.50) M/mcL Hgb 10.0 L (12.9-16.9) g/dL Hct 37.6 (37.5-50.1) % MCV 94.2 D (83.0-100.0) fL MCH 25.1 L (28.0-33.3) pg MCHC 26.6 L (31.6-35.5) g/dL RDW 15.6 H (11.5-14.5) % Plt Count 173 (140-400) K/mcL MPV 9.4 (9.4-12.4) fL Immature Gran % 0.4 (0-4) % Seg Neutrophils % 80.7 % Lymphocytes % 7.3 % Monocytes % 10.1 % Eosinophils % 1.3 % Basophils % 0.2 % Neutrophils # 8.0 (1.6-8.9) K/mcL Lymphocytes # 0.7 (0.6-4.6) K/mcL Monocytes # 1.0 (0.0-1.3) K/mcL Eosinophils # 0.1 (0.0-0.6) K/mcL Basophils # 0.0 (0.0-0.2) K/mcL Platelet Estimate Normal (Normal) Hypochromasia Present A (Not Present) VBG pH (7.32-7.42) pH Units VBG pCO2 (41-51) mmHg VBG pO2 (25-50) mmHg VBG HCO3 (21-27) mEq/L Sodium 145 (136-145) mEq/L Potassium 4.5 (3.5-5.1) mEq/L Chloride 91 L (98-107) mEq/L Carbon Dioxide > 45 H* (23-29) mEq/L BUN 19 (6-20) mg/dL Creatinine 0.64 L (0.70-1.30) mg/dL Est GFR ( Amer) > 60 (> 60) Est GFR (Non-Af Amer) > 60 (> 60) BUN/Creatinine Ratio 30 H (6-26) Glucose 84 (70-105) mg/dL Calculated Osmolality 301 H (280-300) Lactic Acid 0.5 (0.5-2.2) mmol/L Calcium 8.9 (8.6-10.3) mg/dL Troponin I < 0.03 (< 0.04) ng/mL B-Natriuretic Peptide (Less than 100) pg/mL Person Notif of Crit 03/12/18 03/12/18 Range/Units 17:41 18:00 WBC (4.3-11.1) K/mcL RBC (4.19-5.50) M/mcL Hgb (12.9-16.9) g/dL Hct (37.5-50.1) % MCV (83.0-100.0) fL MCH (28.0-33.3) pg MCHC (31.6-35.5) g/dL RDW (11.5-14.5) % Plt Count (140-400) K/mcL MPV (9.4-12.4) fL Immature Gran % (0-4) % Seg Neutrophils % % Lymphocytes % % Monocytes % % Eosinophils % % Basophils % % Neutrophils # (1.6-8.9) K/mcL Lymphocytes # (0.6-4.6) K/mcL Monocytes # (0.0-1.3) K/mcL Eosinophils # (0.0-0.6) K/mcL Basophils # (0.0-0.2) K/mcL Platelet Estimate (Normal) Hypochromasia (Not Present) VBG pH 7.34 (7.32-7.42) pH Units VBG pCO2 104 H* (41-51) mmHg VBG pO2 50 (25-50) mmHg VBG HCO3 56 H (21-27) mEq/L Sodium (136-145) mEq/L Potassium (3.5-5.1) mEq/L Chloride (98-107) mEq/L Carbon Dioxide (23-29) mEq/L BUN (6-20) mg/dL Creatinine (0.70-1.30) mg/dL Est GFR ( Amer) (> 60) Est GFR (Non-Af Amer) (> 60) BUN/Creatinine Ratio (6-26) Glucose (70-105) mg/dL Calculated Osmolality (280-300) Lactic Acid (0.5-2.2) mmol/L Calcium (8.6-10.3) mg/dL Troponin I (< 0.04) ng/mL B-Natriuretic Peptide 74 (Less than 100) pg/mL Person Notif of Clint [facility] - EKG Data EKG attestation: Yes I reviewed and interpreted this EKG. EKG shows normal: Reports: sinus rhythm Rate: Reports: normal Rhythm: Reports: NSR [place]/QRS: Reports: normal Q waves: Reports: v1, v2, v3 T wave inversions noted in: Reports: v1 Interpretation: Reports: no acute changes, nonspecific ST-T wave changes SJosé Antonio - [place] Situation: Demographics Background: Presenting Complaint Assessment: Vital Signs, Course and respsone to treatment, Patient/Family Expectation Recommendation: Barrier(s) to disposition, Recommendation based on pending studies, treatments, or consults SJosé Antonio Report Given to: Hospitalist [place] Repor Time: 19:28
[2018-03-12 17:56] LABS: Basophils % 0.2 %
[2018-03-12] MEDS ORDERED: Furosemide 40 MG/4 ML VIAL IVP ONE (17:56)
--- NOTE | 2018-03-12 17:57 | Emergency Department Note ---
Disposition Clinical Impression: COPD exacerbation Disposition: Admitted As Inpatient Forms: ED Satisfaction Letter General Adult HPI - General Chief complaint: ED Shortness of Breath/Dyspnea Stated complaint: "RADU/copd " Time Seen by Provider: 03/12/18 16:58 Source: patient, family Mode of arrival: wheelchair Limitations: no limitations - History of Present Illness Pain Scale: 4 - Related Data Home Medications Medication Instructions Recorded Confirmed Atorvastatin Calcium [Lipitor] 80 mg PO DAILY 05/04/15 03/12/18 Multivitamin/Ferrous Sulfate 1 tab PO DAILY 05/04/15 03/12/18 [One-Daily Iiokw-Uyq-Lstl Tab] Potassium Chloride [Klor-Con 10] 20 meq PO DAILY 05/05/16 03/12/18 Oxygen 4 l IH AD 12/12/16 03/12/18 Amiodarone [Cordarone] 200 mg PO DAILY 11/23/17 03/12/18 Fluticasone Propionate Nasal 1 spr NS BID 11/23/17 03/12/18 [Flonase] Fluticasone/Salmeterol [Advair Hfa 1 puff IH BID 01/04/18 03/12/18 45-21 Mcg Inhaler] Warfarin [Coumadin] 8 mg PO DAILY 01/04/18 03/12/18 Previous Rx's Medication Instructions Recorded Albuterol Neb [Proventil Neb] 2.5 mg IH Q4HR PRN 14 Days 05/07/16 vial.neb Citalopram [CeleXA] 40 mg PO DAILY #20 tablet 05/28/16 Ipratropium/Albuterol Neb [Duoneb] 3 ml IH QIDR 30 Days #1 11/25/17 Furosemide [Lasix] 40 mg PO BID #60 tab 01/08/18 predniSONE [PredniSONE] 10 mg PO DAILY #19 tablet 01/15/18 GuaiFENesin ER [Mucinex] 600 mg PO BID #30 tbbp.12hr 02/15/18 Allergies Allergy/AdvReac Type Severity Reaction Status Date / Time OLIVER Inhibitors AdvReac Cough Verified 02/09/18 12:02 Constitutional: Denies: fever Cardiovascular: Denies: chest pain Respiratory: Reports: cough, dyspnea. Denies: sputum production Gastrointestinal: Denies: abdominal pain, nausea, vomiting Past Medical History - Past Medical History Medical history: Reports: atrial fibrillation, CHF, COPD, hyperlipidemia, hypertension, other Surgical history: Reports: pacemaker/AICD Psychiatric history: Reports: anxiety, depression - Social History Smoking Status: Former smoker Smokeless Tobacco Status: No Alcohol use: Reports: none Drug use: Reports: none Physical Exam - General Limitations: no limitations General appearance: alert, in no apparent distress, obese Course Vital Signs Temperature 97.8 F 03/12/18 16:31 Pulse Rate 89 03/12/18 16:31 Respiratory Rate 24 03/12/18 16:31 Blood Pressure 132/82 03/12/18 16:31 O2 Sat by Pulse Oximetry 95 03/12/18 16:31 Temperature 97.8 F 03/12/18 16:57 Pulse Rate 88 03/12/18 16:57 Respiratory Rate 16 03/12/18 17:26 Blood Pressure 133/72 03/12/18 17:26 O2 Sat by Pulse Oximetry 99 03/12/18 17:26 Oxygen Delivery Oxygen Delivery Nasal Cannula Attestation Statement - Attestation Attestation: I examined this patient and my medical decision-making was reviewed with the Resident Physician. I agree with the documented findings, disposition and treatment plan as described except to the extent set forth below. 57 year old male presents to the ED with complaints of of dyspnea and was being wvaluated by pulmonology per Dr. Cornejo and found ot be increasingly more dyspniec and requiring more oxygen supplementation up to 6LNC since his discharge from the hospital. He is morbidly obese and has GAVIN. We have placed him on bipap secondary to help with work of breathing but he is not hypoxic. Admit to medicin
[2018-03-12 17:58] LABS: Eosinophils # 0.1 K/mcL (0.0-0.6); Eosinophils % 1.3 %; Hematocrit 37.6 % (37.5-50.1); Immature Granulocytes % 0.4 % (0-4); Lymphocytes # 0.7 K/mcL (0.6-4.6); Lymphocytes % 7.3 %; Mean Corpuscular HGB Conc 26.6 g/dL (31.6-35.5); Mean Corpuscular Hemoglobin 25.1 pg (28.0-33.3); Mean Corpuscular Volume 94.2 fL (83.0-100.0); Mean Platelet Volume 9.4 fL (9.4-12.4); Monocytes % 10.1 %; Platelet Count 173 K/mcL (140-400); Red Blood Count 3.99 M/mcL (4.19-5.50); Red Cell Distribution Width 15.6 % (11.5-14.5); Segmented Neutrophils % 80.7 %
[2018-03-12 18:08] LABS: VBG HCO3 56 mEq/L (21-27); VBG PCO2 104 mmHg (41-51); VBG PH 7.34 pH Units (7.32-7.42); VBG PO2 50 mmHg (25-50)
[2018-03-12 18:17] LABS: Troponin I < 0.03 ng/mL (< 0.04)
[2018-03-12 18:24] LABS: BUN/Creatinine Ratio 30 (6-26); Blood Urea Nitrogen 19 mg/dL (6-20); Calcium 8.9 mg/dL (8.6-10.3); Carbon Dioxide > 45 mEq/L (23-29); Chloride 91 mEq/L (98-107); Glucose 84 mg/dL (70-105); Osmolality,Calculated 301 (280-300); Potassium 4.5 mEq/L (3.5-5.1); Sodium 145 mEq/L (136-145); eGFR For Non-African Americans > 60 (> 60)
[2018-03-12 18:53] LABS: Hypochromasia Present (Not Present); Platelet Estimate Normal (Normal)
[2018-03-12 19:33] LABS: INR 3.1; Prothrombin Time 35.4 Seconds (9.4-12.1)
[2018-03-13] MEDS ORDERED: Ipratropium/Albuterol Neb 3 ML IH PRN (02:09)
[2018-03-13] MEDS ORDERED: Acetaminophen 325 MG TABLET PO PRN (02:12)
[2018-03-13] MEDS ORDERED: Naloxone 0.4 MG/ML INJ IVP PRN (02:12)
--- NOTE | 2018-03-13 02:23 | Internal Med History&Physical ---
Date of Encounter: 03/13/18 Time of Encounter: 02:14 Internal Medicine - H&P: HPI Chief complaint: short of breath Admitted From: Emergency Dept Plans for Post Hospital Care: Home History of present illness: Mr. Rubalcava is a 57 year old male hx COPD and CHF presented to ED for shortness of breath when his home BiPap broke. He denies increased cough, mucus , edema - all at his baseline, He wear 6L oxygen at home. He reports dizziness with exertion and great limit to his physical active. In ED, vitals (2% on Bipap and HR 88 but stable - put on bipap and improved. Given duoneb, Lasix and Solumedral. Recent admit for acute respiratory distress requiring ICU admission - discharged on 02-15-18 and improved at home PMHX HTN, morbid obesity, and GAVIN. Former Smoker. Past Med Surg Social Fam HX - Past Medical History Medical history: atrial fibrillation, CHF, COPD, hyperlipidemia, hypertension, other Additional medical history: deaf right ear Psychiatric history: anxiety, depression - Past Surgical History Surgical History: pacemaker/AICD - Social History Smoking Status: Former smoker Smokeless Tobacco Status: No Alcohol use: none Drug use: none - Family History Mother Family Member Ethnicity: Non- Living Status: Still Living Hx Family Cardiac Disorders: No Hx Family Respiratory Disorders: No Hx Family Cancer: Yes Hx Family GI Disorders: No Hx Family Endocrine Disorder: No Father Adopted: No Family Member Ethnicity: Non- Living Status: Hx Family Cancer: Yes Hx Family GI Disorders: No Internal Medicine - H&P: Meds Atorvastatin Calcium [Lipitor] 80 mg PO DAILY 05/04/15 [History] Multivitamin/Ferrous Sulfate [One-Daily Olbkj-Jkp-Aivo Tab] 1 tab PO DAILY 05/04 [History] Potassium Chloride [Klor-Con 10] 20 meq PO DAILY 05/05/16 [History] Albuterol Neb [Proventil Neb] 2.5 mg IH Q4HR PRN 14 Days vial.neb 05/07/16 [Rx] Citalopram [CeleXA] 40 mg PO DAILY #20 tablet 05/28/16 [Rx] Oxygen 4 l IH AD 12/12/16 [History] Amiodarone [Cordarone] 200 mg PO DAILY 11/23/17 [History] Fluticasone Propionate Nasal [Flonase] 1 spr NS BID 11/23/17 [History] Ipratropium/Albuterol Neb [Duoneb] 3 ml IH QIDR 30 Days #1 11/25/17 [Rx] Fluticasone/Salmeterol [Advair Hfa 45-21 Mcg Inhaler] 1 puff IH BID 01/04/18 [ History] Warfarin [Coumadin] 8 mg PO DAILY 01/04/18 [History] Furosemide [Lasix] 40 mg PO BID #60 tab 01/08/18 [Rx] predniSONE [PredniSONE] 10 mg PO DAILY #19 tablet 01/15/18 [Rx] GuaiFENesin ER [Mucinex] 600 mg PO BID #30 tbbp.12hr 02/15/18 [Rx] 3 Allergy/AdvReac Type Severity Reaction Status Date / Time OLIVER Inhibitors AdvReac Cough Verified 02/09/18 12:02 All Systems PM: A 10-system review of systems was performed and is negative for pertinent findings except as documented above in the HPI. - Constitutional Constitutional: no fatigue, no fever(s) - EENT Eyes: no loss of vision Additional comments: decrease hearing in right ear stable - Cardiovascular Cardiovascular ROS IM: dyspnea, edema, lightheadedness, no chest pain, no irregular heart rhythm, no palpitations, no syncope - Respiratory Respiratory: cough, dyspnea on exertion, no excessive phlegm production, no change in phlegm color - Gastrointestinal Gastrointestinal: no constipation, no diarrhea, no vomiting - Genitourinary Genitourinary ROS male: no dysuria, no hematuria, no urinary frequency - Integumentary Integumentary IM: no rash - Constitutional Vitals: Temp Pulse Resp BP Pulse Ox 98.4 F 76 20 150/82 96 03/13/18 01:00 03/13/18 01:00 03/13/18 01:00 03/13/18 01:00 03/13/18 01:00 General appearance: Present: cooperative, A&O X 3, pleasant, no acute distress, answers questions appropriately Exam: on BiPap thus difficult to hear, morbidly obses - Head Head exam: Present: atraumatic, normocephalic - ENT ENT exam: Present: mucous membranes moist, normal oropharynx - Respiratory Respiratory exam: Present: CTAB. Absent: rales, respiratory distress, wheezes Additional comments: difficult to auscultate due to body habitus - Cardiovascular Cardiovascular exam: Present: RRR. Absent: gallop, rubs Additional comments: difficult to auscultate due to body habitus - GI/Abdominal GI/Abdominal exam: Present: distended. Absent: mass, normal bowel sounds, rebound, tenderness Additional comments: difficult to auscultate due to body habitus - Extremities Exam Extremities exam: Present: full ROM, pedal edema, warm, radial pulses palpable and symmetrical. Absent: calf tenderness Additional comments: edema half way up flowers, pitting, difficult to estimate stage due to body habitus - Psychiatric Psychiatric exam: Present: normal affect, normal mood - Skin Skin exam: Absent: abrasion, diaphoretic Additional comments: chronic dermatasis and scaring to bilat legs Internal Med - H&P Results - Labs CBC & Chem 7: 03/13/18 04:44 03/13/18 04:44 - Assessment and plan (1) Acute respiratory failure with hypercapnia Current Visit: Yes Status: Acute Assessment and plan: Admit due to need for BiPap - chronic CO2 retainer - Bipap - social work consult (2) CHF (congestive heart failure) Current Visit: Yes Status: Chronic Assessment and plan: doesn't appear to be in acute heart failure - continue home medications Qualifiers: Heart failure type: unspecified Heart failure chronicity: unspecified Qualified Code(s): I50.9 - Heart failure, unspecified (3) Atrial fibrillation Current Visit: No Status: Chronic Assessment and plan: continue Coumadin and amiodarone Qualifiers: Atrial fibrillation type: chronic Qualified Code(s): I48.2 - Chronic atrial fibrillation (4) COPD (chronic obstructive pulmonary disease) Current Visit: No Status: Chronic Assessment and plan: Does not appear to be in exacerbation - duoneb q6 godfrey and q4 prn - predisone 40 mg daily Qualifiers: COPD type: emphysema Emphysema type: centrilobular Qualified Code(s): J43.2 - Centrilobular emphysema (5) GAVIN (obstructive sleep apnea) Current Visit: No Status: Chronic Assessment and plan: Bipap (6) Anemia Current Visit: Yes Status: Acute Assessment and plan: HgB 10 with baseline around 11 - monitor Qualifiers: Anemia type: unspecified type Qualified Code(s): D64.9 - Anemia, unspecified (7) DVT prophylaxis Current Visit: No Status: Acute Assessment and plan: Coumadin - Time Spent With Patient Total time spent is greater than 50% in coordination of care (as documented) at patient's floor/unit and/or counseling patient: Greater than 35 minutes
[2018-03-13] MEDS: Ipratropium/Albuterol Neb 3 ML IH SCH ×4 (03:52→22:08)
[2018-03-13 04:36] LABS: ABG Base Excess 19 mEq/L (-2 to 3); ABG HCO3 50 mEq/L (21-27); ABG Oxygen Saturation 95 % (95-98); ABG PCO2 96 mmHg (35-45); ABG PH 7.32 pH Units (7.32-7.45); ABG PO2 88 mmHg (85-104); ABG TCO2 53 mEq/L (20-26); Blood Gas PEEP 8 cm H2O
[2018-03-13 05:23] LABS: Basophils % 0.1 %; Immature Granulocytes % 0.5 % (0-4)
[2018-03-13 05:24] LABS: Hematocrit 40.1 % (37.5-50.1); Hemoglobin 10.8 g/dL (12.9-16.9); Lymphocytes # 0.5 K/mcL (0.6-4.6); Mean Corpuscular HGB Conc 26.9 g/dL (31.6-35.5); Mean Corpuscular Hemoglobin 25.4 pg (28.0-33.3); Mean Corpuscular Volume 94.4 fL (83.0-100.0); Mean Platelet Volume 10.3 fL (9.4-12.4); Monocytes # 0.1 K/mcL (0.0-1.3); Monocytes % 0.9 %; Platelet Count 171 K/mcL (140-400); Red Blood Count 4.25 M/mcL (4.19-5.50); Red Cell Distribution Width 15.5 % (11.5-14.5); Segmented Neutrophils % 93.5 %
[2018-03-13 05:27] LABS: Neutrophils # 9.3 K/mcL (1.6-8.9)
[2018-03-13 05:45] LABS: Alanine Aminotransferase 9 Units/L (7-52); Albumin 3.6 g/dL (3.5-5.7); Albumin/Globulin Ratio 1.3 (1.1-2.2); Alkaline Phosphatase 92 Units/L (34-104); Aspartate Amino Transferase 13 Units/L (13-39); BUN/Creatinine Ratio 30 (6-26); Bilirubin,Total 0.5 mg/dL (0.3-1.0); Blood Urea Nitrogen 21 mg/dL (6-20); Calcium 9.2 mg/dL (8.6-10.3); Carbon Dioxide > 45 mEq/L (23-29); Chloride 91 mEq/L (98-107); Globulin 2.8 g/dL (2.4-3.5); Glucose 203 mg/dL (70-105); Osmolality,Calculated 307 (280-300); Potassium 4.7 mEq/L (3.5-5.1); Sodium 144 mEq/L (136-145); Total Protein 6.4 g/dL (6.4-8.9); eGFR For Non-African Americans > 60 (> 60)
[2018-03-13 05:56] LABS: Platelet Estimate Normal (Normal)
[2018-03-13 05:57] LABS: Hypochromasia Present (Not Present); Stomatocytes 1+ (Not Present)
--- NOTE | 2018-03-13 07:57 | Event Note ---
<Glenn Pedro - Last Filed: 03/13/18 13:58> Date of Encounter: 03/13/18 Time of Encounter: 08:45 Subjective: Mr. Rubalcava is a 57 year old male who presented to the ED yesterday 03/[address] Cuadra's office for increased work of breathing, stating he was having difficulty breathing despite using his home non-invasive ventilation machine ( NIV) and COPD medication. He was found to be desaturating in the 80s during examination in the Pulmonology office and went over to the ED directly. His past medical history is significant for COPD on 6L home O2 + NIV, CHF s/p AICD with LVEF of 50% in August 2017, and afib on Amiodarone and coumadin. He had recently been admitted for acute respiratory failure with hypoxia/hypercapnia in mid-January, requiring ICU admission and bipap. Since this admission, patient has been saturating in the 90-93% range on bipap 16/8 Fio2 30-50%. ABG performed showed hypercapnia with no respiratory acidosis. He has since been started on bipap, duonebs, steroid, Lasix 40mg IV BID. At the time of my evaluation, patient is conversant with bipap, does not desaturate with conversation. He denies chest discomfort, abdominal pain, fever , constipation, diarrhea, or leg pain. Objective: Vitals normotensive, afebrile, 94% on Bipap 16/8 Fio2 30% Head exam: Present: atraumatic, normocephalic Eye exam: Present: conjuntiva pink, sclera anicteric, EOMI Neck exam general surgery: Present: supple, trachea midline. Absent: lymphadenopathy Respiratory exam: Present: diminished breath sounds throughout due to body habitus, normal chest wall excursion. Absent: accessory muscle use, rales, rhonchi, wheezes Cardiovascular exam: Present: RRR, +S1, +S2, tachycardia. Regular pulse palpated on L UE Absent: diastolic murmur, gallop, rubs, systolic murmur GI/Abdominal exam: Present: normal bowel sounds, soft, no peritoneal signs. Absent: distended, tenderness Extremities exam: Present: warm, radial pulses palpable and symmetrical. Absent : calf tenderness, cyanotic, pedal edema Neurological exam: Present: Deaf R ear, alert and oriented X3, Absent: facial droop, speech deficit Skin exam: Present: dry, intact Assessment/Plan: (1) Acute respiratory failure with hypercapnia - report of dyspnea due to malfunctioning NIV at home - Bipap set at 16 IPAP 8 EPAP, 30 Fio2, RT titration; saturating 93% - social work consult for NIV assessment at home is pending; potential d/c tomorrow, he is at baseline if bipap/equipment is available to him; if home needs regarding NIV can be met can d/c (2) CHF (congestive heart failure) - Not in exacerbation - no significant pitting edema - Lasix 40mg IV BID (3) Atrial fibrillation - continue Coumadin and amiodarone (4) COPD (chronic obstructive pulmonary disease) Does not appear to be in exacerbation - duoneb q6 godfrey and q4 prn - predisone 40 mg daily (5) GAVIN (obstructive sleep apnea) -Bipap (6) Anemia -HgB 10 with baseline around 11 (7) DVT prophylaxis -Coumadin with pharmacy to dose <Jarek Bennett - Last Filed: 03/13/18 17:05> Date of Encounter: 03/13/18 Pt admitted earlier today with respiratory failure due to noncompliance with bipap due to equipment issues. Exam Alert Comfortable at this time. No wheeze at this time. Agree with assessment and plan as above and H&P.
[2018-03-13 09:33] LABS: VBG HCO3 52 mEq/L (21-27); VBG PCO2 74 mmHg (41-51); VBG PH 7.45 pH Units (7.32-7.42); VBG PO2 210 mmHg (25-50)
[2018-03-13] MEDS: predniSONE 20 MG TABLET PO SCH (11:38)
[2018-03-13] MEDS: Furosemide 20 MG TABLET PO SCH ×2 (11:38→16:07)
[2018-03-13] MEDS: Fluticasone Propionate Nasal 50 MCG/SPRAY BOTTLE NS SCH ×2 (11:38→21:16)
[2018-03-13] MEDS: *HR* Amiodarone 200 MG TABLET PO SCH (11:38)
[2018-03-13 12:46] LABS: INR 2.9; Prothrombin Time 32.5 Seconds (9.4-12.1)
[2018-03-13] MEDS ORDERED: *HR* Warfarin 3 MG TABLET PO ONE (18:00)
[2018-03-13] MEDS ORDERED: *HR* Warfarin 4 MG TABLET PO SCH (18:00)
[2018-03-13] MEDS ORDERED: Warfarin perPT PO PRN (18:00)
[2018-03-14] MEDS: Ipratropium/Albuterol Neb 3 ML IH SCH ×4 (03:45→21:39)
[2018-03-14 05:24] LABS: Hematocrit 39.9 % (37.5-50.1); Hemoglobin 10.7 g/dL (12.9-16.9); Mean Corpuscular HGB Conc 26.8 g/dL (31.6-35.5); Mean Corpuscular Hemoglobin 24.9 pg (28.0-33.3); Mean Platelet Volume 10.1 fL (9.4-12.4); Platelet Count 178 K/mcL (140-400); Red Blood Count 4.29 M/mcL (4.19-5.50); Red Cell Distribution Width 15.6 % (11.5-14.5)
[2018-03-14 05:30] LABS: INR 3.2
[2018-03-14 05:50] LABS: BUN/Creatinine Ratio 37 (6-26); Blood Urea Nitrogen 24 mg/dL (6-20); Calcium 9.1 mg/dL (8.6-10.3); Carbon Dioxide > 45 mEq/L (23-29); Chloride 92 mEq/L (98-107); Glucose 106 mg/dL (70-105); Osmolality,Calculated 304 (280-300); Potassium 4.3 mEq/L (3.5-5.1); Sodium 145 mEq/L (136-145); eGFR For Non-African Americans > 60 (> 60)
--- NOTE | 2018-03-14 09:10 | Discharge Summary ---
Orders not resulted at time of discharge: Pending orders 03/15/18 04:00 PT/INR [Prothrombin Time INR] [COAG] AM 0400 03/16/18 04:00 PT/INR [Prothrombin Time INR] [COAG] AM 0400 Date of Encounter: 03/14/18 Time of Encounter: 09:10 - Discharge Diagnosis (1) CHF (congestive heart failure) Priority: Secondary Status: Chronic Qualifiers: Heart failure type: unspecified Heart failure chronicity: unspecified Qualified Code(s): I50.9 - Heart failure, unspecified (2) Atrial fibrillation Priority: Secondary Status: Chronic Qualifiers: Atrial fibrillation type: chronic Qualified Code(s): I48.2 - Chronic atrial fibrillation (3) Shortness of breath Priority: Secondary Status: Acute (4) COPD (chronic obstructive pulmonary disease) Priority: Secondary Status: Chronic Qualifiers: COPD type: emphysema Emphysema type: centrilobular Qualified Code(s): J43.2 - Centrilobular emphysema (5) GAVIN (obstructive sleep apnea) Priority: Secondary Status: Chronic (6) Acute respiratory failure with hypercapnia Priority: Primary Status: Acute Hospital course: Mr. Rubalcava is a 57 year old male - Time Spent with Patient Total time spent providing and/or coordinating discharge services: - Discharge Medications Home Medications: Atorvastatin Calcium [Lipitor] 80 mg PO DAILY 05/04/15 [History] Multivitamin/Ferrous Sulfate [One-Daily Txlgj-Bix-Letu Tab] 1 tab PO DAILY 05/04 [History] Potassium Chloride [Klor-Con 10] 20 meq PO DAILY 05/05/16 [History] Albuterol Neb [Proventil Neb] 2.5 mg IH Q4HR PRN 14 Days vial.neb 05/07/16 [Rx] Citalopram [CeleXA] 40 mg PO DAILY #20 tablet 05/28/16 [Rx] Oxygen 4 l IH AD 12/12/16 [History] Amiodarone [Cordarone] 200 mg PO DAILY 11/23/17 [History] Fluticasone Propionate Nasal [Flonase] 1 spr NS BID 11/23/17 [History] Ipratropium/Albuterol Neb [Duoneb] 3 ml IH QIDR 30 Days #1 11/25/17 [Rx] Fluticasone/Salmeterol [Advair Hfa 45-21 Mcg Inhaler] 1 puff IH BID 01/04/18 [ History] Warfarin [Coumadin] 8 mg PO DAILY 01/04/18 [History] Furosemide [Lasix] 40 mg PO BID #60 tab 01/08/18 [Rx] predniSONE [PredniSONE] 10 mg PO DAILY #19 tablet 01/15/18 [Rx] GuaiFENesin ER [Mucinex] 600 mg PO BID #30 tbbp.12hr 02/15/18 [Rx] Allergies/Adverse Reactions: 3 Allergy/AdvReac Type Severity Reaction Status Date / Time OLIVER Inhibitors AdvReac Cough Verified 02/09/18 12:02 Date of admission: 03/12/18 21:34 Primary care physician: Jay Cool MD Consults: 03/13/18 02:37 Consult to Linen Checker [CONS] Routine Reason for SW Consult: readmit due to BiPap breaking Discharging clinician: Sherley Bethea Anticipated date of discharge: 03/14/18 - Constitutional Vitals: Temp Pulse Resp BP Pulse Ox 98 F 87 16 116/71 93 03/14/18 07:52 03/14/18 07:52 03/14/18 07:52 03/14/18 07:52 03/14/18 07:52 General appearance: Present: cooperative, A&O X 3, pleasant, no acute distress, answers questions appropriately - Patient Status Disposition: Home, Self-Care Condition: Fair Functional capacity at discharge: independent ambulation Overall status at discharge: patient is progressing back to baseline - Discharge Instructions Follow Up With: Jya Cool MD [Primary Care Provider] - 03/27/18 1:30 pm Additional Instructions: Continue taking home medications as prescribed. Use your ventilator as directed. Respiratory therapy will be out today to help with troubleshooting your machine. Return to the emergency department if symptoms worsen or if new concerns arise. - Diet and Activity Activity: resume usual activities as tolerated Diet: low fat, low cholesterol
[2018-03-14] MEDS: predniSONE 20 MG TABLET PO SCH (09:20)
[2018-03-14] MEDS: Furosemide 20 MG TABLET PO SCH (09:20)
[2018-03-14] MEDS: *HR* Amiodarone 200 MG TABLET PO SCH (09:21)
[2018-03-14] MEDS: Fluticasone Propionate Nasal 50 MCG/SPRAY BOTTLE NS SCH ×2 (09:22→20:30)
--- NOTE | 2018-03-14 11:20 | Physician Discharge Referral ---
Home Health/Hosp Referral Info Transfer to: Home Health Provider in Charge Post Discharge: PCP - Diagnosis (1) CHF (congestive heart failure) Priority: Secondary Status: Chronic (2) Atrial fibrillation Priority: Secondary Status: Chronic (3) Shortness of breath Priority: Secondary Status: Acute (4) COPD (chronic obstructive pulmonary disease) Priority: Secondary Status: Chronic (5) GAVIN (obstructive sleep apnea) Priority: Secondary Status: Chronic (6) Acute respiratory failure with hypercapnia Priority: Primary Status: Acute - Respiratory Orders Oxygen / L per min (6L) Smoking Cessation: Smoking cessation has been advised. For more information, call the [place] Tobacco Quit Line at 8-148-FKAM-NOW. - Diet/Nutrition Diet/Nutrition Orders: Cardiac Diet/Nutrition: List: ADA Diet - Activity Activity Orders: Up ad cleo - Services Needed Following services are medically necessary services: Nursing, Home Health Aide, Physical Therapy, Occupational Therapy - Transfer Medications Home Medications: Atorvastatin Calcium [Lipitor] 80 mg PO DAILY 05/04/15 [History] Multivitamin/Ferrous Sulfate [One-Daily Kiyzm-Pal-Uicm Tab] 1 tab PO DAILY 05/04 [History] Potassium Chloride [Klor-Con 10] 20 meq PO DAILY 05/05/16 [History] Albuterol Neb [Proventil Neb] 2.5 mg IH Q4HR PRN 14 Days vial.neb 05/07/16 [Rx] Citalopram [CeleXA] 40 mg PO DAILY #20 tablet 05/28/16 [Rx] Oxygen 4 l IH AD 12/12/16 [History] Amiodarone [Cordarone] 200 mg PO DAILY 11/23/17 [History] Fluticasone Propionate Nasal [Flonase] 1 spr NS BID 11/23/17 [History] Ipratropium/Albuterol Neb [Duoneb] 3 ml IH QIDR 30 Days #1 11/25/17 [Rx] Fluticasone/Salmeterol [Advair Hfa 45-21 Mcg Inhaler] 1 puff IH BID 01/04/18 [ History] Warfarin [Coumadin] 8 mg PO DAILY 01/04/18 [History] Furosemide [Lasix] 40 mg PO BID #60 tab 01/08/18 [Rx] predniSONE [PredniSONE] 10 mg PO DAILY #19 tablet 01/15/18 [Rx] GuaiFENesin ER [Mucinex] 600 mg PO BID #30 tbbp.12hr 02/15/18 [Rx] Allergies/Adverse Reactions: 3 Allergy/AdvReac Type Severity Reaction Status Date / Time OLIVER Inhibitors AdvReac Cough Verified 02/09/18 12:02 Certification: Further, I certify that my clinical findings support that this patient is homebound (i.e. absences from home require considerable and taxing effort and are for medical reasons or yazidism services or infrequently or short duration when for other reasons) because: Homebound Reason: Leaving home requires considerable and taxing effort due to condition Attestation: My signature below is to certify that this patient is under my care and that I, or nurse practitioner, or a physician's reproductive healthcare assistant working with me, has a face-to -face encounter with this patient.
--- NOTE | 2018-03-14 11:32 | Internal Med Progress Note ---
<Jarek Bennett - Last Filed: 03/14/18 17:41> Hospitalist Progress Note - Encounter Date of Encounter: 03/14/18 - Exam Vitals: Temp Pulse Resp BP Pulse Ox 98.5 F 78 16 121/68 8 03/14/18 16:06 03/14/18 16:06 03/14/18 16:06 03/14/18 16:06 03/14/18 16:06 - Assessment and Plan (1) CHF (congestive heart failure) Current Visit: Yes Status: Chronic (2) Atrial fibrillation Current Visit: No Status: Chronic (3) Acute respiratory failure with hypercapnia Current Visit: Yes Status: Acute (4) COPD (chronic obstructive pulmonary disease) Current Visit: No Status: Chronic (5) GAVIN (obstructive sleep apnea) Current Visit: No Status: Chronic (6) Hypoventilation associated with obesity syndrome Current Visit: No Status: Chronic (7) Diabetes Current Visit: No Status: Chronic (8) Morbid obesity with BMI of 60.0-69.9, adult Current Visit: No Status: Acute - Time Spent with Patient Total time spent is greater than 50% in coordination of care (as documented) at patient's floor/unit and/or counseling patient: Internal Medicine: Result - Labs CBC & Chem 7: 03/14/18 05:04 03/14/18 05:04 Labs: Short CBC 03/14/18 Range/Units 05:04 WBC 9.8 (4.3-11.1) K/mcL Hgb 10.7 L (12.9-16.9) g/dL Hct 39.9 (37.5-50.1) % Plt Count 178 (140-400) K/mcL BMP 03/14/18 05:04 Sodium 145 Potassium 4.3 Chloride 92 L Carbon Dioxide > 45 H* BUN 24 H Creatinine 0.65 L Glucose 106 H Calcium 9.1 - ABG Interpretation ABG results: ABG ABG pH 7.32 pH Units (7.32-7.45) 03/13/18 04:28 ABG pCO2 96 mmHg (35-45) H* 03/13/18 04:28 ABG pO2 88 mmHg (85-104) 03/13/18 04:28 ABG O2 Saturation 95 % (95-98) 03/13/18 04:28 PT/INR, D-dimer PT 36.0 Seconds (9.4-12.1) H 03/14/18 05:04 Consult Discharge Plan - Plan Additional Instructions: Continue taking home medications as prescribed. Use your ventilator as directed. Respiratory therapy will be out today to help with troubleshooting your machine. Return to the emergency department if symptoms worsen or if new concerns arise. Referrals: Jay Cool MD [Primary Care Provider] - 03/27/18 1:30 pm - Attending Attestation I examined this patient and my medical decision-making was reviewed with the Resident Physician on 03/14/18. I agree with the documented findings, disposition and treatment plan as described except to the extent set forth below. Mr Rubalcava is currently in observation due to exac CHF. He remains moderate to high risk. Mr Rubalcava has been having a lot of dyspnea today. He has more edema as well. No fever or chills. No abd pain. Exam alert Comfortable in bed Mucus membranes dry Heart distant No wheeze abd soft Edema present I/P 1. Acute exac diastolic CHF 2. COPD 3. Chronic resp failure Further diagnoses and plan as above. Anticipate d/c tomorrow. <Sherley Bethea N - Last Filed: 03/14/18 18:08> Hospitalist Progress Note - Encounter Date of Encounter: 03/14/18 Time of Encounter: 11:32 - Subjective Interval History: Mr. Rubalcava is a 57-year old male who presented to the ED on 03/12 complaining of increased work of breathing. He does have a home non-invasive ventilation (NIV) machine; however, he reported malfunction and stated that his machine was not working correctly. His medical history is significant for COPD on 6L home O2, CHF, atrial fibrillation, and multiple hospital admissions over the last few months for acute respiratory failure with hypoxia/hypercapnia. Since admission, he has been placed on BiPAP with good oxygen saturation. ABG performed on 03/13 demonstrated pH 7.32, pCO2 96, pO2 88, and HCO3 50, suggestive of hypercapnia without respiratory acidosis, for which duonebs, steroids, and lasix was added. At the time of examination today, he appears to be resting comfortably in bed. He denies any continued shortness of breath or increased work of breathing. He does not appear short of breath while conversing. He reported feeling much better. Social work arranged for him to have respiratory therapy come out to his home to troubleshoot his NIV after discharge, which was planned for this afternoon. Nursing staff reported later in the morning that the patient had increasing exertional dyspnea and appeared to be overtly fluid overloaded, with 2+ bilateral lower extremity edema and crackles in bilateral lung grande, which were noted after the patient had gotten up from bed and ambulated. Patient was started on 40mg IV lasix BID, with plans to reassess for discharge planning tomorrow. He was also placed on 1.5L fluid restricted diet with strict I/Os. - Exam Vitals: Temp Pulse Resp BP Pulse Ox 98.1 F 85 16 150/90 87 03/14/18 11:25 03/14/18 11:25 03/14/18 11:25 03/14/18 11:25 03/14/18 11:25 Exam: * General: Obese adult male lying in bed comfortably. He is awake and alert. He answers questions appropriately and does not appear to be in acute distress. * HEENT: Atraumatic and normocephalic. * Cardiovascular: Distant heart sounds. Regular rate and rhythm. S1 and S2 present. * Respiratory: Diffusely decreased breath sounds bilaterally. No wheezes, rales , rhonchi, or crackles noted. * Abdomen: Obese. Soft and nontender. * Extremities: 2+ pitting edema bilaterally. Skin discoloration of bilateral lower extremities consistent with chronic venous stasis. - Assessment and Plan (1) CHF (congestive heart failure) Current Visit: Yes Status: Chronic Assessment and Plan: Patient takes lasix 40mg PO BID for diuresis. On exam today, he denied any shortness of breath, and lung sounds were clear. Nursing staff reported worsening SOB with exertion and crackles noted after patient was ambulated and expressed concern regarding possible discharge today. In light of respiratory changes and crackles, discharge postponed and IV lasix 40mg BID initiated due to concern for CHF exacerbation and fluid overload. Will start 1.5L fluid restriction as well. Will reevaluate tomorrow for signs of overt CHF exacerbation. (2) Acute respiratory failure with hypercapnia Current Visit: Yes Status: Acute Assessment and Plan: Patient initially presented to the ED complaining of increased work of breathing. He has a non-invasive ventilation (NIV) machine at home, which he reports has been malfunctioning. He has several recent hospital admissions for acute respiratory failure with hypoxia/hypercapnia. He has been on BiPAP during naps and at night since his admission, and has been doing well overall, though nursing staff noted increased exertional dyspnea today. Will continue NIV during naps, at night, and PRN. Social work is arranging for respiratory therapy to go to patient's house to troubleshoot his home machine after discharge from the hospital. (3) Atrial fibrillation Current Visit: No Status: Chronic Assessment and Plan: Continue home medications of amiodarine 200mg daily and coumadin. (4) COPD (chronic obstructive pulmonary disease) Current Visit: No Status: Chronic Assessment and Plan: Patient does not appear to be having an acute COPD exacerbation. Will continue scheduled duoneb Q6H and prednisone 40mg daily. Patient also has albuterol nebulizer Q4H PRN. (5) GAVIN (obstructive sleep apnea) Current Visit: No Status: Chronic Assessment and Plan: Continue NIV during naps and at night. DVT Prophylaxis: Coumadin. Pharmacy to dose. - Time Spent with Patient Total time spent is greater than 50% in coordination of care (as documented) at patient's floor/unit and/or counseling patient: Internal Medicine: Result - Labs CBC & Chem 7: 03/14/18 05:04 03/14/18 05:04 Labs: Short CBC 03/14/18 Range/Units 05:04 WBC 9.8 (4.3-11.1) K/mcL Hgb 10.7 L (12.9-16.9) g/dL Hct 39.9 (37.5-50.1) % Plt Count 178 (140-400) K/mcL BMP 03/14/18 05:04 Sodium 145 Potassium 4.3 Chloride 92 L Carbon Dioxide > 45 H* BUN 24 H Creatinine 0.65 L Glucose 106 H Calcium 9.1 - ABG Interpretation ABG results: ABG ABG pH 7.32 pH Units (7.32-7.45) 03/13/18 04:28 ABG pCO2 96 mmHg (35-45) H* 03/13/18 04:28 ABG pO2 88 mmHg (85-104) 03/13/18 04:28 ABG O2 Saturation 95 % (95-98) 03/13/18 04:28 PT/INR, D-dimer PT 36.0 Seconds (9.4-12.1) H 03/14/18 05:04 <Jarek Bennett - Last Filed: 03/14/18 17:41> (1) CHF (congestive heart failure) Qualifiers: Heart failure type: diastolic Heart failure chronicity: acute on chronic Qualified Code(s): I50.33 - Acute on chronic diastolic (congestive) heart failure (2) Atrial fibrillation Qualifiers: Atrial fibrillation type: chronic Qualified Code(s): I48.2 - Chronic atrial fibrillation (4) COPD (chronic obstructive pulmonary disease) Qualifiers: COPD type: emphysema Emphysema type: centrilobular Qualified Code(s): J43.2 - Centrilobular emphysema (7) Diabetes Qualifiers: Diabetes mellitus type: type 2 Diabetes mellitus computer terminal operator insulin use: with computer terminal operator use Diabetes mellitus complication status: with hyperglycemia Qualified Code(s): E11.65 - Type 2 diabetes mellitus with hyperglycemia; Z79.4 - shelter (current) use of insulin <Sherley Bethea - Last Filed: 03/14/18 18:08> (1) CHF (congestive heart failure) Qualifiers: Heart failure type: diastolic Heart failure chronicity: acute on chronic Qualified Code(s): I50.33 - Acute on chronic diastolic (congestive) heart failure (3) Atrial fibrillation Qualifiers: Atrial fibrillation type: chronic Qualified Code(s): I48.2 - Chronic atrial fibrillation (4) COPD (chronic obstructive pulmonary disease) Qualifiers: COPD type: emphysema Emphysema type: centrilobular Qualified Code(s): J43.2 - Centrilobular emphysema
[2018-03-14] MEDS: Furosemide 40 MG/4 ML VIAL IVP SCH ×2 (13:47→20:28)
[2018-03-14] MEDS ORDERED: Albuterol 2.5 MG/3 ML NEBULIZER IH PRN (14:51)
[2018-03-14] MEDS ORDERED: *HR* Warfarin 4 MG TABLET PO ONE (18:00)
[2018-03-15] MEDS: Ipratropium/Albuterol Neb 3 ML IH SCH ×3 (03:58→16:08)
[2018-03-15 05:22] LABS: Mean Corpuscular HGB Conc 27.8 g/dL (31.6-35.5)
[2018-03-15 05:24] LABS: Basophils % 0.3 %; Eosinophils # 0.1 K/mcL (0.0-0.6); Eosinophils % 0.8 %; Hematocrit 38.1 % (37.5-50.1); Hemoglobin 10.6 g/dL (12.9-16.9); Immature Granulocytes % 0.4 % (0-4); Lymphocytes # 1.2 K/mcL (0.6-4.6); Lymphocytes % 12.5 %; Mean Corpuscular Hemoglobin 25.3 pg (28.0-33.3); Mean Corpuscular Volume 90.9 fL (83.0-100.0); Mean Platelet Volume 9.8 fL (9.4-12.4); Platelet Count 183 K/mcL (140-400); Red Blood Count 4.19 M/mcL (4.19-5.50); Red Cell Distribution Width 15.4 % (11.5-14.5)
[2018-03-15 05:25] LABS: INR 3.2; Prothrombin Time 35.7 Seconds (9.4-12.1)
[2018-03-15 05:30] LABS: VBG HCO3 59 mEq/L (21-27); VBG PCO2 85 mmHg (41-51); VBG PH 7.45 pH Units (7.32-7.42); VBG PO2 129 mmHg (25-50)
[2018-03-15 06:20] LABS: BUN/Creatinine Ratio 33 (6-26); Blood Urea Nitrogen 22 mg/dL (6-20); Calcium 8.9 mg/dL (8.6-10.3); Carbon Dioxide > 45 mEq/L (23-29); Chloride 87 mEq/L (98-107); Glucose 98 mg/dL (70-105); Osmolality,Calculated 297 (280-300); Potassium 3.9 mEq/L (3.5-5.1); Sodium 142 mEq/L (136-145); eGFR For Non-African Americans > 60 (> 60)
[2018-03-15 06:46] LABS: Neutrophils # 7.5 K/mcL (1.6-8.9)
[2018-03-15] MEDS: *HR* Amiodarone 200 MG TABLET PO SCH (08:34)
[2018-03-15] MEDS: predniSONE 20 MG TABLET PO SCH (08:34)
[2018-03-15] MEDS: Fluticasone Propionate Nasal 50 MCG/SPRAY BOTTLE NS SCH (08:35)
[2018-03-15] MEDS: Furosemide 40 MG/4 ML VIAL IVP SCH (08:35)
[2018-03-15 10:29] VITALS: BP 131/98
--- NOTE | 2018-03-15 11:39 | Discharge Summary ---
<Glenn Pedro - Last Filed: 03/15/18 14:49> - NOTES TO OUTPATIENT PROVIDER Notes to Outpatient Provider: Home health/social worker palliative care will be working with Mr. Rubalcava to ensure proper use of his new non-invasive ventilation at home. Orders not resulted at time of discharge: Pending orders 03/16/18 04:00 PT/INR [Prothrombin Time INR] [COAG] AM 0400 Date of Encounter: 03/15/18 Time of Encounter: 09:15 - Discharge Diagnosis (1) Acute respiratory failure with hypercapnia Priority: Primary Status: Acute (2) Atrial fibrillation Priority: Secondary Status: Chronic Qualifiers: Atrial fibrillation type: chronic Qualified Code(s): I48.2 - Chronic atrial fibrillation (3) GAVIN (obstructive sleep apnea) Priority: Secondary Status: Chronic (4) CHF (congestive heart failure) Priority: Secondary Status: Chronic Qualifiers: Heart failure type: diastolic Heart failure chronicity: acute on chronic Qualified Code(s): I50.33 - Acute on chronic diastolic (congestive) heart failure (5) DVT prophylaxis Priority: Secondary Status: Acute Hospital course: Mr. Rubalcava is a 57 year old male who as admitted for acute respiratory failure with hypercapnia, sent from Dr. Cuadra's office; he was found to be non- acidotic this admission. He had a recent ICU admission for acute respiratory failure secondary to volume overload and similar issues with his home non- invasive ventilation/bipap with respiratory acidosis. He reports his home NIV has been difficult to manage/believes it is broken. During his hospital stay he was diuresed 7L on IV Lasix, given short course of steroid, pulmonary toilet. Throughout his hospital course he had been saturating above baseline for chronic COPD. director of tax services was recruited to schedule home assessment of a new NIV machine with patient education for home upon discharge. Discharge discussed with: patient - Time Spent with Patient Total time spent providing and/or coordinating discharge services: Greater than 30 minutes - Discharge Medications Home Medications: Atorvastatin Calcium [Lipitor] 80 mg PO DAILY 05/04/15 [History] Multivitamin/Ferrous Sulfate [One-Daily Uhjlp-Vjw-Szjt Tab] 1 tab PO DAILY 05/04 [History] Potassium Chloride [Klor-Con 10] 20 meq PO DAILY 05/05/16 [History] Albuterol Neb [Proventil Neb] 2.5 mg IH Q4HR PRN 14 Days vial.neb 05/07/16 [Rx] Citalopram [CeleXA] 40 mg PO DAILY #20 tablet 05/28/16 [Rx] Oxygen 4 l IH AD 12/12/16 [History] Amiodarone [Cordarone] 200 mg PO DAILY 11/23/17 [History] Fluticasone Propionate Nasal [Flonase] 1 spr NS BID 11/23/17 [History] Ipratropium/Albuterol Neb [Duoneb] 3 ml IH QIDR 30 Days #1 11/25/17 [Rx] Fluticasone/Salmeterol [Advair Hfa 45-21 Mcg Inhaler] 1 puff IH BID 01/04/18 [ History] Warfarin [Coumadin] 8 mg PO DAILY 01/04/18 [History] Furosemide [Lasix] 40 mg PO BID #60 tab 01/08/18 [Rx] predniSONE [PredniSONE] 10 mg PO DAILY #19 tablet 01/15/18 [Rx] GuaiFENesin ER [Mucinex] 600 mg PO BID #30 tbbp.12hr 02/15/18 [Rx] Allergies/Adverse Reactions: 3 Allergy/AdvReac Type Severity Reaction Status Date / Time OLIVER Inhibitors AdvReac Cough Verified 02/09/18 12:02 Date of admission: 03/12/18 21:34 Primary care physician: Jay Cool MD Consults: 03/13/18 02:37 Consult to Sail Finisher Hand [CONS] Routine Reason for SW Consult: readmit due to BiPap breaking - Constitutional Vitals: Temp Pulse Resp BP Pulse Ox 97.9 F 75 15 131/98 96 03/15/18 06:03 03/15/18 06:03 03/15/18 10:27 03/15/18 10:27 03/15/18 10:27 General appearance: Present: cooperative, A&O X 3, pleasant, no acute distress, answers questions appropriately Exam: . - Head Head exam: Present: atraumatic, normocephalic - Eye Eye exam: Present: EOMI, conjuntiva pink, sclera anicteric - Neck Neck exam general surgery: Present: supple, trachea midline. Absent: lymphadenopathy - Respiratory Respiratory exam: Present: decreased breath sounds (bilateral). Absent: accessory muscle use, rales, rhonchi, wheezes - Cardiovascular Cardiovascular exam: Present: +S1, +S2. Absent: bradycardia, diastolic murmur, gallop, rubs, systolic murmur, tachycardia - GI/Abdominal GI/Abdominal exam: Present: normal bowel sounds, soft, no peritoneal signs. Absent: distended, tenderness Additional comments: morbidly obese - Extremities Exam Extremities exam: Present: warm, radial pulses palpable and symmetrical. Absent : calf tenderness, cyanotic, pedal edema Additional comments: hemosiderin deposition bilateral; negative marie's bilat - Neurological Exam Neurological exam: Present: CN II-XII intact, oriented X3, no focal deficits. Absent: pronater drift, facial droop, speech deficit - Skin Skin exam: Present: dry, intact - Patient Status Disposition: Home, Self-Care Condition: Fair Overall status at discharge: patient is progressing back to baseline - Discharge Instructions Follow Up With: Jay Cool MD [Primary Care Provider] - 03/27/18 1:30 pm Additional Instructions: Continue taking home medications as prescribed. Use your ventilator as directed. Respiratory therapy will be out today to help with troubleshooting your machine. Return to the emergency department if symptoms worsen or if new concerns arise. - Diet and Activity Activity: increase activity as tolerated Diet: low salt diet <Jarek Bennett - Last Filed: 03/15/18 15:58> Orders not resulted at time of discharge: Pending orders 03/16/18 04:00 PT/INR [Prothrombin Time INR] [COAG] AM 0400 Date of Encounter: 03/15/18 - Discharge Diagnosis (1) CHF (congestive heart failure) Status: Chronic Qualifiers: Heart failure type: diastolic Heart failure chronicity: acute on chronic Qualified Code(s): I50.33 - Acute on chronic diastolic (congestive) heart failure (2) Atrial fibrillation Status: Chronic Qualifiers: Atrial fibrillation type: chronic Qualified Code(s): I48.2 - Chronic atrial fibrillation (3) Acute respiratory failure with hypercapnia Status: Acute (4) COPD (chronic obstructive pulmonary disease) Priority: Secondary Status: Chronic Qualifiers: COPD type: emphysema Emphysema type: centrilobular Qualified Code(s): J43.2 - Centrilobular emphysema (5) GAVIN (obstructive sleep apnea) Status: Chronic (6) A-fib Priority: Secondary Status: Chronic Qualifiers: Atrial fibrillation type: chronic Qualified Code(s): I48.2 - Chronic atrial fibrillation (7) Hypertension Priority: Secondary Status: Chronic Qualifiers: Hypertension type: essential hypertension Qualified Code(s): I10 - Essential (primary) hypertension (8) Diabetes Priority: Secondary Status: Chronic Qualifiers: Diabetes mellitus type: type 2 Diabetes mellitus terminal gauger supervisor insulin use: with snf use Diabetes mellitus complication status: with hyperglycemia Qualified Code(s): E11.65 - Type 2 diabetes mellitus with hyperglycemia; Z79.4 - remote computer terminal operator (current) use of insulin (9) Morbid obesity due to excess calories Priority: Secondary Status: Chronic Hospital course: Mr. Rubalcava is a 57 year old male - Time Spent with Patient Total time spent providing and/or coordinating discharge services: Date of admission: 03/12/18 21:34 Primary care physician: Jay Cool MD Consults: 03/13/18 02:37 Consult to Sail Finisher Hand [CONS] Routine Reason for SW Consult: readmit due to BiPap breaking - Constitutional Vitals: Temp Pulse Resp BP Pulse Ox 97.9 F 75 15 131/98 96 03/15/18 06:03 03/15/18 06:03 03/15/18 10:27 03/15/18 10:27 03/15/18 10:27 - Attending Attestation I examined this patient and my medical decision-making was reviewed with the Resident Physician on 03/15/18. I agree with the documented findings, disposition and treatment plan as described except to the extent set forth below. Mr Rubalcava has been in observation for hypercapnic resp failure and diastolic heart failure. He has diuresed and feels nearly baseline. He is able to move around in room. He is afebrile and ready for discharge home. Exam alert comfortable lying in bed Mucus membranes dry Heart distant, not tachy Lungs diminished Abd soft Edema still present Plan D/C home today.
--- NOTE | 2018-03-15 17:54 | Electrocardiograph Report ---
[address] [place] [address] Test Date: 2018-03-12 Pat Name: Jesus Rubalcava Department: 104 Room: 2NE35 Gender: M [employer]: : 1960 Requested By: Vincent Salas Order Number: [id number] Reading MD: Nitza Harper Measurements Intervals [place] Rate: 83 P: 55 ND: 200 QRS: 83 QRSD: 95 T: 39 QT: 371 QTc: 411 Interpretive Statements SINUS RHYTHM LOW QRS VOLTAGE IN PRECORDIAL LEADS SEPTAL MYOCARDIAL INFARCTION, PROBABLY OLD Electronically Signed On 03-15-2018 17:52:46 EDT by Nitza Harper
[2018-03-15] MEDS ORDERED: *HR* Warfarin 4 MG TABLET PO ONE (18:00)
== END 2018-03-15 16:29 | disposition home or self-care (01) ==
LOC: 2NENU 16:12 → EMEROOARM 16:12 → SUATTDRO 21:34 → 2NENU 21:42
PROVIDERS: ADMIT Family Medicine; ATTEND Internal Medicine

== ENCOUNTER 2018-04-09 13:34 | Inpatient (IN) ==
[2018-04-09] MEDS ORDERED: Naloxone 0.4 MG/ML INJ IVP PRN (17:18)
[2018-04-09] MEDS ORDERED: *HR* HYDROcodone/Acet 5/325 mg TABLET PO PRN (17:18)
[2018-04-09] MEDS ORDERED: Acetaminophen 325 MG TABLET PO PRN (17:18)
[2018-04-09] MEDS ORDERED: Ondansetron 4 MG/2 ML VIAL IVP PRN (17:18)
[2018-04-09] MEDS ORDERED: Albuterol 2.5 MG/3 ML NEBULIZER IH PRN (17:24)
--- NOTE | 2018-04-09 17:59 | Internal Med History&Physical ---
<Wen Ayala - Last Filed: 04/09/18 17:57> Date of Encounter: 04/09/18 Time of Encounter: 05:15 Internal Medicine - H&P: HPI Chief complaint: Dyspnea History of present illness: Mr. Rubalcava is a 57 year old male with past medical history of COPD on 6L home oxygen, obstructive sleep apnea, obesity hypoventilation syndrome, CHF with ICD, A-fib on Coumadin, and HLD. Patient presented to [facility] ED for shortness of breath for 1 week. Patient was recently discharged from hospital on 03/15/18 for dyspnea from COPD. Patient states that he has not used his BiPAP since discharge. states he doesnt like using it. reports that they can tell when the CO2 is building up and they both knew hed have to go to the hospital soon. states that when this occurs, he sleeps all the time. Patient also reports weakness. Admits increased swelling in lower extremities and abdomen. Admits dry cough. Admits midsternal chest discomfort with shortness of breath. Denies fever/chills. Past Med Surg Social Fam HX - Past Medical History Medical history: atrial fibrillation, CHF, COPD, hyperlipidemia, hypertension, other Additional medical history: deaf right ear Psychiatric history: anxiety, depression - Past Surgical History Surgical History: pacemaker/AICD - Social History Smoking Status: Former smoker Smokeless Tobacco Status: No Alcohol use: none Drug use: none - Family History Mother Family Member Ethnicity: Non- Living Status: Still Living Hx Family Cardiac Disorders: No Hx Family Respiratory Disorders: No Hx Family Cancer: Yes (uterine) Hx Family GI Disorders: No Hx Family Endocrine Disorder: No Father History Unknown: Yes Adopted: No Family Member Ethnicity: Non- Living Status: Hx Family Cancer: Yes (lung/ kidney) Hx Family GI Disorders: No Internal Medicine - H&P: Meds Atorvastatin Calcium [Lipitor] 80 mg PO DAILY 05/04/15 [History] Multivitamin/Ferrous Sulfate [One-Daily Ovjfb-Mfp-Upki Tab] 1 tab PO DAILY 05/04 [History] Potassium Chloride [Klor-Con 10] 20 meq PO DAILY 05/05/16 [History] Albuterol Neb [Proventil Neb] 2.5 mg IH Q4HR PRN 14 Days vial.neb 11/05/16 [Rx] Citalopram [CeleXA] 40 mg PO DAILY #20 tablet 05/28/16 [Rx] Oxygen 4 l IH AD 12/12/16 [History] Amiodarone [Cordarone] 200 mg PO DAILY 11/23/17 [History] Fluticasone Propionate Nasal [Flonase] 1 spr NS BID 11/23/17 [History] Ipratropium/Albuterol Neb [Duoneb] 3 ml IH QIDR 30 Days #1 11/25/17 [Rx] Fluticasone/Salmeterol [Advair Hfa 45-21 Mcg Inhaler] 1 puff IH BID 01/04/18 [ History] Warfarin [Coumadin] 8 mg PO DAILY 01/04/18 [History] Furosemide [Lasix] 40 mg PO BID #60 tab 01/08/18 [Rx] predniSONE [PredniSONE] 10 mg PO DAILY #19 tablet 01/15/18 [Rx] GuaiFENesin ER [Mucinex] 600 mg PO BID #30 tbbp.12hr 02/15/18 [Rx] 3 Allergy/AdvReac Type Severity Reaction Status Date / Time OLIVER Inhibitors AdvReac Cough Verified 02/09/18 12:02 All Systems PM: A 10-system review of systems was performed and is negative for pertinent findings except as documented above in the HPI. Review of systems: ROS as stated above. - Constitutional Vitals: Temp Pulse Resp BP Pulse Ox 98.3 F 77 22 116/68 86 04/09/18 15:57 04/09/18 15:57 04/09/18 15:57 04/09/18 15:57 04/09/18 15:57 Exam: General: Morbidly obese. Alert and oriented x3. No acute distress. Head: atraumatic, normocephalic. Eye: pupils equal and round. Sclera anicteric. EOMI. Neck: supple. Trachea midline. Lungs: CTAB. No rhonchi, rales, or wheezing. Decreased breath sounds. No respiratory distress. No accessory muscle use. Cardiovascular: Normal S1 & S2. No rubs or gallops. No JVD. Pulse regular. Abdomen: Morbidly obese. Normal bowel sounds. RLQ tender to palpation. No rigidity, no rebound. Swelling on lower abdomen with tissue texture changes. Extremities: Minimal pitting edema in bilateral lower extremities. Venous stasis changes bilaterally. Tender to palpation. No joint swelling or clubbing. Skin: warm, dry, and intact. - Assessment and plan (1) Acute on chronic respiratory failure with hypoxia and hypercapnia Current Visit: Yes Status: Acute Assessment and plan: History of COPD on 6L home oxygen. History of obstructive sleep apnea and obesity hypoventilation syndrome. Secondary to BiPAP noncompliance. On admission, oxygen saturation 86% on 6L NC. ABG showed pH 7.34, pCO2 elevated at 101, pO2 decreased at 58, and HCO3 elevated at 55. DuoNeb q4h. Solu-Medrol 40mg q8h. O2 supplementation. BiPAP. (2) Acute on chronic systolic (congestive) heart failure Current Visit: Yes Status: Acute Assessment and plan: History of CHF with ICD. Echo 10/2017 showed LVEF 50%. Indeterminate diastolic function. CXR showed cardiomegaly with vascular congestion. Bilateral pleural effusion. Lasix IV 40 q8h. (3) Volume overload Current Visit: Yes Status: Acute Assessment and plan: Secondary to CHF exacerbation. See above. Qualifiers: Qualified Code(s): E87.70 - Fluid overload, unspecified (4) HCAP (healthcare-associated pneumonia) Current Visit: No Status: Suspected Assessment and plan: History of recent hospitalization, discharged on 03/15/18. CXR showed possible infiltrate vs atelectasis in L lung base. Start cefepime 1g q12h. (5) A-fib Current Visit: No Status: Chronic Assessment and plan: History of A-fib. Currently in sinus rhythm. On amiodarone and Coumadin. Qualifiers: Atrial fibrillation type: chronic Qualified Code(s): I48.2 - Chronic atrial fibrillation (6) Hyperlipidemia Current Visit: Yes Status: Chronic Assessment and plan: On atorvastatin. Qualifiers: Qualified Code(s): E78.5 - Hyperlipidemia, unspecified - Time Spent With Patient Total time spent is greater than 50% in coordination of care (as documented) at patient's floor/unit and/or counseling patient: <Mikajose danielgeetaLili - Last Filed: 04/09/18 18:30> Date of Encounter: 04/09/18 Internal Medicine - H&P: HPI History of present illness: Mr. Rubalcava is a 57 year old male All Systems PM: A 10-system review of systems was performed and is negative for pertinent findings except as documented above in the HPI. - Constitutional Vitals: Temp Pulse Resp BP Pulse Ox 98.3 F 77 22 116/68 86 04/09/18 15:57 04/09/18 15:57 04/09/18 15:57 04/09/18 15:57 04/09/18 15:57 - Assessment and plan (1) HCAP (healthcare-associated pneumonia) Current Visit: No Status: Suspected (2) A-fib Current Visit: No Status: Chronic Qualifiers: Atrial fibrillation type: chronic Qualified Code(s): I48.2 - Chronic atrial fibrillation (3) Acute on chronic respiratory failure with hypoxia and hypercapnia Current Visit: Yes Status: Acute (4) Acute on chronic systolic (congestive) heart failure Current Visit: Yes Status: Acute (5) Volume overload Current Visit: Yes Status: Acute Qualifiers: Qualified Code(s): E87.70 - Fluid overload, unspecified (6) Hyperlipidemia Current Visit: Yes Status: Chronic Qualifiers: Qualified Code(s): E78.5 - Hyperlipidemia, unspecified - Time Spent With Patient Total time spent is greater than 50% in coordination of care (as documented) at patient's floor/unit and/or counseling patient: - Attending Attestation I examined this patient and my medical decision-making was reviewed with the Resident Physician Dr. Ayala. I agree with the documented findings, disposition and treatment plan as described except to the extent set forth below. Mr. Rubalcava is a 57 year old male with past medical history of COPD on 6L home oxygen, obstructive sleep apnea, obesity hypoventilation syndrome, CHF with ICD, A-fib on Coumadin, and HLD. Patient presented to [facility] ED for shortness of breath for 1 week. Patient denied any chest pain. He does how diffuse swelling in bilateral lower extremities. Gen: A, A, O x 3 Chest: Diminished BS b/l, Moderate wheezing, rales +,No ronchi Heart: S1S2+ Afib Ext: 2-3 + Pitting edema a/p 1. Acute on chronic hypoxic and hypercapneic Respiratory failure 2. Acute COPD exacerbation 3. Hypoventilation syndrome 4. Bacterial pneumonia 5. Morbid obesity reviewed his blood gas from [place] [facility], showed respiratory acidosis with significantly increased PCO2 will use BiPAPcontinuously for next 24 hours IV steroids + Duoneb + empirical abx 6. Acute on chronic systolic CHF exacerbation started on aggressive IV Diuresis with Lasix 40 Q8HR strict I & O serial troponin resumed other home medications
[2018-04-09] MEDS: Budesonide/Formoterol 80/4.5 MDI IH SCH (19:46)
[2018-04-09] MEDS: Ipratropium/Albuterol Neb 3 ML IH SCH ×2 (19:46→23:57)
[2018-04-09] MEDS: MethylPREDNISolone 40 MG/ML VIAL IVP SCH (22:32)
[2018-04-10 00:56] LABS: Basophils % 0.2 %; Mean Corpuscular Hemoglobin 25.2 pg (28.0-33.3)
[2018-04-10 00:58] LABS: Eosinophils # 0.1 K/mcL (0.0-0.6); Eosinophils % 0.7 %; Hematocrit 42.2 % (37.5-50.1); Hemoglobin 11.3 g/dL (12.9-16.9); Immature Granulocytes % 0.5 % (0-4); Lymphocytes # 0.6 K/mcL (0.6-4.6); Lymphocytes % 5.8 %; Mean Corpuscular HGB Conc 26.8 g/dL (31.6-35.5); Mean Platelet Volume 9.4 fL (9.4-12.4); Monocytes # 0.2 K/mcL (0.0-1.3); Monocytes % 2.3 %; Platelet Count 146 K/mcL (140-400); Red Blood Count 4.49 M/mcL (4.19-5.50); Red Cell Distribution Width 15.1 % (11.5-14.5); Segmented Neutrophils % 90.5 %
[2018-04-10 01:06] LABS: Neutrophils # 8.6 K/mcL (1.6-8.9)
[2018-04-10 01:18] LABS: BUN/Creatinine Ratio 24 (6-26); Blood Urea Nitrogen 17 mg/dL (6-20); Calcium 9.2 mg/dL (8.6-10.3); Carbon Dioxide > 45 mEq/L (23-29); Chloride 89 mEq/L (98-107); Chol/HDL Ratio 3.2 (0-4.9); Cholesterol 120 mg/dL (< 200); Glucose 183 mg/dL (70-105); HDL Cholesterol 38 mg/dL (40-59); LDL Cholesterol,Calculated 61 mg/dL (0-99); Magnesium 2.4 mg/dL (1.6-2.6); Osmolality,Calculated 302 (280-300); Potassium 4.4 mEq/L (3.5-5.1); Sodium 143 mEq/L (136-145); Triglycerides 103 mg/dL (< 150); eGFR For Non-African Americans > 60 (> 60)
[2018-04-10 01:23] LABS: Hypochromasia Present (Not Present); Platelet Estimate Normal (Normal)
[2018-04-10] MEDS: Ipratropium/Albuterol Neb 3 ML IH SCH ×6 (04:06→23:36)
[2018-04-10] MEDS: Cefepime HCl 1,000 MG in Water for inj. (sterile) 20 ML 10 ML IVP SCH ×2 (04:17→17:08)
[2018-04-10] MEDS: Furosemide 40 MG/4 ML VIAL IVP SCH ×4 (04:20→17:06)
[2018-04-10] MEDS: Budesonide/Formoterol 80/4.5 MDI IH SCH ×2 (07:31→19:39)
[2018-04-10] MEDS: *HR* Amiodarone 200 MG TABLET PO SCH (09:12)
[2018-04-10] MEDS: Multivit/Ca/Min/Fe/FA 1 TAB TABLET PO SCH (09:12)
[2018-04-10] MEDS: *HR* Warfarin 4 MG TABLET PO SCH (09:13)
[2018-04-10] MEDS: MethylPREDNISolone 40 MG/ML VIAL IVP SCH ×2 (09:13→17:08)
--- NOTE | 2018-04-10 09:22 | Internal Med Progress Note ---
<Wen Ayala - Last Filed: 04/10/18 13:33> Hospitalist Progress Note - Encounter Date of Encounter: 04/10/18 Time of Encounter: 09:15 - Subjective Interval History: Patient seen and examined. No acute events overnight. The patient was deeply asleep with BiPAP. He states hes doing alright. Denies any complaints at this time. Denies chest pain and shortness of breath. Denies cough. Denies fever /chills. Denies nausea/vomiting, abdominal pain, constipation/diarrhea. - Exam Vitals: Temp Pulse Resp BP Pulse Ox 97.7 F 74 18 150/84 93 04/10/18 07:37 04/10/18 07:37 04/10/18 07:37 04/10/18 07:37 04/10/18 07:37 Exam: General: Morbidly obese. Alert and oriented x3. No acute distress. Head: atraumatic, normocephalic. Eye: pupils equal and round. Sclera anicteric. EOMI. Neck: supple. Trachea midline. Lungs: CTAB. No rhonchi, rales, or wheezing. No respiratory distress. No accessory muscle use. Cardiovascular: Normal S1 & S2. No rubs or gallops. No JVD. Pulse regular. Abdomen: Morbidly obese. Normal bowel sounds. Diffusely tender to palpation. No rigidity, no rebound. Extremities: No pitting edema in bilateral lower extremities. Venous stasis changes. Tender to palpation. No joint swelling or clubbing. Skin: warm, dry, and intact. - Assessment and Plan (1) Acute on chronic respiratory failure with hypoxia and hypercapnia Current Visit: Yes Status: Acute Assessment and Plan: History of COPD on 6L home oxygen. History of obstructive sleep apnea and obesity hypoventilation syndrome. Secondary to BiPAP noncompliance. On admission, oxygen saturation 86% on 6L NC. ABG showed pH 7.34, pCO2 elevated at 101, pO2 decreased at 58, and HCO3 elevated at 55. BiPAP. O2 supplementation. Continue DuoNeb q4h. Continue Solu-Medrol 40mg q8h. Consider titrate down tomorrow. (2) Acute on chronic systolic (congestive) heart failure Current Visit: Yes Status: Acute Assessment and Plan: History of CHF with ICD. BNP is normal. Echo 10/2017 showed LVEF 50%. Indeterminate diastolic function. CXR showed cardiomegaly with vascular congestion. Bilateral pleural effusion. Continue Lasix IV 40 q8h. Strict I&Os. (3) COPD exacerbation Current Visit: No Status: Acute Assessment and Plan: History of COPD on 6L home oxygen. See above. (4) Bacterial pneumonia Current Visit: Yes Status: Acute Assessment and Plan: Acute COPD exacerbation. CXR showed possible infiltrate or atelectasis in L lung base. Continue Day 2 empiric cefepime 1g q12h. (5) Obesity hypoventilation syndrome Current Visit: No Status: Chronic Assessment and Plan: BMI 61. (6) A-fib Current Visit: No Status: Chronic Assessment and Plan: History of A-fib. Currently in sinus rhythm. On amiodarone and Coumadin. (7) Hyperlipidemia Current Visit: Yes Status: Chronic Assessment and Plan: Continue home medication - atorvastatin. (8) Morbid obesity with BMI of 60.0-69.9, adult Current Visit: No Status: Acute Assessment and Plan: Encourage lifestyle modifications. DVT Prophylaxis: On Coumadin. - Time Spent with Patient Total time spent is greater than 50% in coordination of care (as documented) at patient's floor/unit and/or counseling patient: Internal Medicine: Result - Labs CBC & Chem 7: 04/10/18 00:36 04/10/18 00:36 Labs: Short CBC 04/10/18 Range/Units 00:36 WBC 9.5 (4.3-11.1) K/mcL Hgb 11.3 L D (12.9-16.9) g/dL Hct 42.2 (37.5-50.1) % Plt Count 146 (140-400) K/mcL Neutrophils # 8.6 (1.6-8.9) K/mcL BMP 04/10/18 00:36 Sodium 143 Potassium 4.4 Chloride 89 L Carbon Dioxide > 45 H* BUN 17 Creatinine 0.72 Glucose 183 H Calcium 9.2 Cardiac Enzymes 04/09/18 04/10/18 04/10/18 Range/Units 18:21 00:36 06:09 Troponin I < 0.03 < 0.03 < 0.03 (< 0.04) ng/mL Consult Discharge Plan - Plan Referrals: Jay Cool MD [Primary Care Provider] - <Ame Buitrago - Last Filed: 04/10/18 14:24> Hospitalist Progress Note - Encounter Date of Encounter: 04/10/18 - Exam Vitals: Temp Pulse Resp BP Pulse Ox 97.7 F 87 20 131/74 89 04/10/18 07:37 04/10/18 11:22 04/10/18 11:48 04/10/18 11:22 04/10/18 11:48 - Assessment and Plan (1) Acute on chronic respiratory failure with hypoxia and hypercapnia Current Visit: Yes Status: Acute (2) Acute on chronic systolic (congestive) heart failure Current Visit: Yes Status: Acute Assessment and Plan: Pt has acute worsening of chronic diastolic CHF. Continue lasix (3) COPD exacerbation Current Visit: No Status: Acute (4) Obesity hypoventilation syndrome Current Visit: No Status: Chronic (5) Morbid obesity with BMI of 60.0-69.9, adult Current Visit: No Status: Acute (6) A-fib Current Visit: No Status: Chronic (7) Hyperlipidemia Current Visit: Yes Status: Chronic (8) Bacterial pneumonia Current Visit: Yes Status: Acute - Time Spent with Patient Total time spent is greater than 50% in coordination of care (as documented) at patient's floor/unit and/or counseling patient: Internal Medicine: Result - Labs CBC & Chem 7: 04/10/18 00:36 04/10/18 00:36 Labs: Short CBC 04/10/18 Range/Units 00:36 WBC 9.5 (4.3-11.1) K/mcL Hgb 11.3 L D (12.9-16.9) g/dL Hct 42.2 (37.5-50.1) % Plt Count 146 (140-400) K/mcL Neutrophils # 8.6 (1.6-8.9) K/mcL BMP 04/10/18 00:36 Sodium 143 Potassium 4.4 Chloride 89 L Carbon Dioxide > 45 H* BUN 17 Creatinine 0.72 Glucose 183 H Calcium 9.2 Cardiac Enzymes 04/09/18 04/10/18 04/10/18 Range/Units 18:21 00:36 06:09 Troponin I < 0.03 < 0.03 < 0.03 (< 0.04) ng/mL - ABG Interpretation ABG results: PT/INR, D-dimer PT 20.1 Seconds (9.4-12.1) H 04/10/18 12:54 - Attending Attestation Seen and assessed. Being managed for acute worsening of chronic diastolic CHF and acute hypoxic respiratory failure Continue diuresis, nebs, steroids and antibiotics and BIPAP prn Agree with plan per resident <Wen Ayala - Last Filed: 04/10/18 13:33> (6) A-fib Qualifiers: Atrial fibrillation type: chronic Qualified Code(s): I48.2 - Chronic atrial fibrillation <Ame Buitrago - Last Filed: 04/10/18 14:24> (6) A-fib Qualifiers: Atrial fibrillation type: chronic Qualified Code(s): I48.2 - Chronic atrial fibrillation
[2018-04-10 13:33] LABS: INR 1.8; Prothrombin Time 20.1 Seconds (9.4-12.1)
[2018-04-10] MEDS ORDERED: Warfarin perPT PO PRN (18:00)
[2018-04-10] MEDS: Fluticasone Propionate Nasal 50 MCG/SPRAY BOTTLE NS SCH (21:52)
[2018-04-11] MEDS: Ipratropium/Albuterol Neb 3 ML IH SCH ×6 (03:34→23:31)
[2018-04-11] MEDS: MethylPREDNISolone 40 MG/ML VIAL IVP SCH ×3 (04:59→16:27)
[2018-04-11] MEDS: Cefepime HCl 1,000 MG in Water for inj. (sterile) 20 ML 10 ML IVP SCH ×4 (05:00→22:53)
[2018-04-11] MEDS: Furosemide 40 MG/4 ML VIAL IVP SCH ×3 (05:03→16:27)
[2018-04-11 06:14] LABS: Basophils % 0.1 %
[2018-04-11 06:15] LABS: Hemoglobin 10.7 g/dL (12.9-16.9); Immature Granulocytes % 0.6 % (0-4); Lymphocytes # 0.8 K/mcL (0.6-4.6); Mean Corpuscular HGB Conc 27.4 g/dL (31.6-35.5); Mean Corpuscular Hemoglobin 25.1 pg (28.0-33.3); Mean Corpuscular Volume 91.3 fL (83.0-100.0); Mean Platelet Volume 10.1 fL (9.4-12.4); Monocytes # 0.9 K/mcL (0.0-1.3); Monocytes % 8.6 %; Platelet Count 186 K/mcL (140-400); Red Blood Count 4.27 M/mcL (4.19-5.50); Segmented Neutrophils % 83.7 %
[2018-04-11 06:17] LABS: INR 2.1; Prothrombin Time 23.9 Seconds (9.4-12.1)
[2018-04-11 07:00] LABS: Hypochromasia Present (Not Present); Platelet Estimate Normal (Normal); Stomatocytes 2+ (Not Present)
[2018-04-11 07:09] LABS: BUN/Creatinine Ratio 35 (6-26); Blood Urea Nitrogen 23 mg/dL (6-20); Calcium 9.1 mg/dL (8.6-10.3); Carbon Dioxide > 45 mEq/L (23-29); Chloride 90 mEq/L (98-107); Glucose 152 mg/dL (70-105); Osmolality,Calculated 309 (280-300); Potassium 4.5 mEq/L (3.5-5.1); Sodium 146 mEq/L (136-145); eGFR For Non-African Americans > 60 (> 60)
--- NOTE | 2018-04-11 08:44 | Internal Med Progress Note ---
<Wen Ayala - Last Filed: 04/11/18 11:41> Hospitalist Progress Note - Encounter Date of Encounter: 04/11/18 Time of Encounter: 08:35 - Subjective Interval History: Patient seen and examined. No acute events overnight. The patient is resting comfortably in bed. He states hes alright. Denies any complaints at this time. Reports he still feels full of fluid. Explains he can tell because his stomach feels squishy. States breathing is back to normal. Admits mild baseline cough. Denies fever/chills. Denies nausea/vomiting, abdominal pain, constipation/diarrhea. - Exam Vitals: Temp Pulse Resp BP Pulse Ox 98.2 F 82 18 132/91 94 04/11/18 07:45 04/11/18 07:45 04/11/18 07:45 04/11/18 07:45 04/11/18 07:45 Exam: General: Morbidly obese. Alert and oriented x3. No acute distress. Head: atraumatic, normocephalic. Eye: pupils equal and round. Sclera anicteric. EOMI. Neck: supple. Trachea midline. Lungs: CTAB. No rhonchi, rales, or wheezing. No respiratory distress. No accessory muscle use. Cardiovascular: Normal S1 & S2. No rubs or gallops. No JVD. Pulse regular. Abdomen: Morbidly obese. Normal bowel sounds. Diffusely tender to palpation. No rigidity, no rebound. Extremities: No pitting edema in bilateral lower extremities. Venous stasis changes. Tender to palpation. No joint swelling or clubbing. Skin: warm, dry, and intact. - Assessment and Plan (1) Acute on chronic respiratory failure with hypoxia and hypercapnia Current Visit: Yes Status: Acute Assessment and Plan: History of COPD on 6L home oxygen. History of obstructive sleep apnea and obesity hypoventilation syndrome. Secondary to BiPAP noncompliance. On admission, oxygen saturation 86% on 6L NC. ABG showed pH 7.34, pCO2 elevated at 101, pO2 decreased at 58, and HCO3 elevated at 55. Repeat ABG on 04/11 showed pH 7.37, pCO2 elevated at 98, pO2 decreased at 61, and HCO3 elevated at 56. Increased BiPAP settings. O2 supplementation. Continue DuoNeb q4h. Tapered Solu-Medrol IV 40mg from q8h to BID. (2) Acute on chronic systolic (congestive) heart failure Current Visit: Yes Status: Acute Assessment and Plan: History of CHF with ICD. BNP is normal. Echo 10/2017 showed LVEF 50%. Indeterminate diastolic function. CXR showed cardiomegaly with vascular congestion. Bilateral pleural effusion. Continue Lasix IV 40 q8h. Strict I&Os. (3) COPD exacerbation Current Visit: No Status: Acute Assessment and Plan: History of COPD on 6L home oxygen. See above. (4) Bacterial pneumonia Current Visit: Yes Status: Acute Assessment and Plan: Acute COPD exacerbation. History of recent hospitalization. Increased risk of Pseudomonas. CXR showed possible infiltrate or atelectasis in L lung base. Continue Day 3 empiric cefepime 1g q12h. (5) Obesity hypoventilation syndrome Current Visit: No Status: Chronic Assessment and Plan: BMI 61. (6) A-fib Current Visit: No Status: Chronic Assessment and Plan: History of A-fib. Currently in sinus rhythm. On amiodarone and Coumadin. (7) Hyperlipidemia Current Visit: Yes Status: Chronic Assessment and Plan: Continue home medication - atorvastatin. (8) Morbid obesity with BMI of 60.0-69.9, adult Current Visit: No Status: Acute Assessment and Plan: Encourage lifestyle modifications. DVT Prophylaxis: On Coumadin. - Time Spent with Patient Total time spent is greater than 50% in coordination of care (as documented) at patient's floor/unit and/or counseling patient: Internal Medicine: Result - Labs CBC & Chem 7: 04/11/18 05:25 04/11/18 05:25 Labs: Short CBC 04/11/18 Range/Units 05:25 WBC 10.8 (4.3-11.1) K/mcL Hgb 10.7 L (12.9-16.9) g/dL Hct 39.0 (37.5-50.1) % Plt Count 186 (140-400) K/mcL Neutrophils # 9.0 H (1.6-8.9) K/mcL BMP 04/11/18 05:25 Sodium 146 H Potassium 4.5 Chloride 90 L Carbon Dioxide > 45 H* BUN 23 H Creatinine 0.66 L Glucose 152 H Calcium 9.1 - ABG Interpretation ABG results: PT/INR, D-dimer PT 23.9 Seconds (9.4-12.1) H 04/11/18 05:25 Consult Discharge Plan - Plan Referrals: Jay Cool MD [Primary Care Provider] - <Ame Buitrago - Last Filed: 04/11/18 13:30> Hospitalist Progress Note - Encounter Date of Encounter: 04/11/18 - Exam Vitals: Temp Pulse Resp BP Pulse Ox 98.7 F 99 17 121/78 91 04/11/18 12:40 04/11/18 12:40 04/11/18 12:40 04/11/18 12:40 04/11/18 12:40 - Assessment and Plan (1) COPD exacerbation Current Visit: No Status: Acute (2) Obesity hypoventilation syndrome Current Visit: No Status: Chronic (3) Morbid obesity with BMI of 60.0-69.9, adult Current Visit: No Status: Acute (4) A-fib Current Visit: No Status: Chronic (5) Acute on chronic respiratory failure with hypoxia and hypercapnia Current Visit: Yes Status: Acute (6) Acute on chronic systolic (congestive) heart failure Current Visit: Yes Status: Acute (7) Hyperlipidemia Current Visit: Yes Status: Chronic (8) Bacterial pneumonia Current Visit: Yes Status: Acute - Time Spent with Patient Total time spent is greater than 50% in coordination of care (as documented) at patient's floor/unit and/or counseling patient: Internal Medicine: Result - Labs CBC & Chem 7: 04/11/18 05:25 04/11/18 05:25 Labs: Short CBC 04/11/18 Range/Units 05:25 WBC 10.8 (4.3-11.1) K/mcL Hgb 10.7 L (12.9-16.9) g/dL Hct 39.0 (37.5-50.1) % Plt Count 186 (140-400) K/mcL Neutrophils # 9.0 H (1.6-8.9) K/mcL BMP 04/11/18 05:25 Sodium 146 H Potassium 4.5 Chloride 90 L Carbon Dioxide > 45 H* BUN 23 H Creatinine 0.66 L Glucose 152 H Calcium 9.1 - ABG Interpretation ABG results: ABG ABG pH 7.37 pH Units (7.32-7.45) 04/11/18 10:22 ABG pCO2 98 mmHg (35-45) H* 10/10/18 10:22 ABG pO2 61 mmHg (85-104) L 04/11/18 10:22 ABG O2 Saturation 88 % (95-98) L 04/11/18 10:22 PT/INR, D-dimer PT 23.9 Seconds (9.4-12.1) H 04/11/18 05:25 - Attending Attestation Seen and assessed agree with plan per resident Plan Acute hypoxic hypercapneic respiratoyr failure likely 2/2 to COPD, Obesity hyopventilation syndrome and diastolic CHF exacerbation Continue BIPAP, diuresis and antibiotics and nebs <Wen Ayala - Last Filed: 04/11/18 11:41> (6) A-fib Qualifiers: Atrial fibrillation type: chronic Qualified Code(s): I48.2 - Chronic atrial fibrillation <Ame Buitrago - Last Filed: 04/11/18 13:30> (4) A-fib Qualifiers: Atrial fibrillation type: chronic Qualified Code(s): I48.2 - Chronic atrial fibrillation
[2018-04-11] MEDS: Multivit/Ca/Min/Fe/FA 1 TAB TABLET PO SCH (09:15)
[2018-04-11] MEDS: *HR* Warfarin 4 MG TABLET PO SCH (09:16)
[2018-04-11] MEDS: *HR* Amiodarone 200 MG TABLET PO SCH (09:16)
[2018-04-11] MEDS: Fluticasone Propionate Nasal 50 MCG/SPRAY BOTTLE NS SCH ×4 (09:20→22:55)
[2018-04-11] MEDS: Budesonide/Formoterol 160/4.5 1 PUFF INH IH SCH ×2 (10:11→19:56)
[2018-04-11 10:25] LABS: ABG Base Excess 25 mEq/L (-2 to 3); ABG HCO3 56 mEq/L (21-27); ABG Oxygen Saturation 88 % (95-98); ABG PCO2 98 mmHg (35-45); ABG PH 7.37 pH Units (7.32-7.45); ABG PO2 61 mmHg (85-104); ABG TCO2 59 mEq/L (20-26)
[2018-04-12] MEDS: Ipratropium/Albuterol Neb 3 ML IH SCH ×3 (03:40→11:25)
[2018-04-12 04:27] VITALS: BP 138/85
[2018-04-12 04:43] LABS: Hematocrit 39.3 % (37.5-50.1); Immature Granulocytes % 0.5 % (0-4); Lymphocytes # 0.8 K/mcL (0.6-4.6); Lymphocytes % 7.1 %; Mean Corpuscular Hemoglobin 25.3 pg (28.0-33.3); Mean Corpuscular Volume 90.3 fL (83.0-100.0); Monocytes # 0.8 K/mcL (0.0-1.3); Monocytes % 7.8 %; Platelet Count 201 K/mcL (140-400); Red Blood Count 4.35 M/mcL (4.19-5.50); Red Cell Distribution Width 14.9 % (11.5-14.5); Segmented Neutrophils % 84.6 %
[2018-04-12 04:48] LABS: INR 2.6; Prothrombin Time 28.8 Seconds (9.4-12.1)
[2018-04-12 05:09] LABS: Platelet Estimate Normal (Normal); Polychromasia 1+ (Not Present)
[2018-04-12 05:15] LABS: BUN/Creatinine Ratio 42 (6-26); Blood Urea Nitrogen 24 mg/dL (6-20); Calcium 9.2 mg/dL (8.6-10.3); Carbon Dioxide > 45 mEq/L (23-29); Chloride 87 mEq/L (98-107); Glucose 123 mg/dL (70-105); Osmolality,Calculated 301 (280-300); Potassium 4.3 mEq/L (3.5-5.1); Sodium 143 mEq/L (136-145); eGFR For Non-African Americans > 60 (> 60)
[2018-04-12] MEDS: MethylPREDNISolone 40 MG/ML VIAL IVP SCH (05:25)
[2018-04-12] MEDS: Cefepime HCl 1,000 MG in Water for inj. (sterile) 20 ML 10 ML IVP SCH (05:25)
--- NOTE | 2018-04-12 08:08 | Internal Med Progress Note ---
Hospitalist Progress Note - Encounter Date of Encounter: 04/12/18 Time of Encounter: 08:00 - Subjective Interval History: Patient seen and examined. No acute events overnight. The patient is sleeping comfortably in bed with BiPAP. He states hes alright. Denies any complaints at this time. Denies difficulty breathing. Denies fever/chills. Denies nausea/ vomiting, abdominal pain, constipation/diarrhea. - Exam Vitals: Temp Pulse Resp BP Pulse Ox 98.3 F 69 19 138/85 93 04/11/18 21:26 04/12/18 04:25 04/12/18 07:21 04/12/18 04:25 04/12/18 07:21 Exam: General: Morbidly obese. Alert and oriented x3. No acute distress. Head: atraumatic, normocephalic. Eye: pupils equal and round. Sclera anicteric. EOMI. Neck: supple. Trachea midline. Lungs: CTAB. No rhonchi, rales, or wheezing. No respiratory distress. No accessory muscle use. Cardiovascular: Normal S1 & S2. No rubs or gallops. No JVD. Pulse regular. Abdomen: Morbidly obese. Normal bowel sounds. Diffusely tender to palpation. No rigidity, no rebound. Extremities: No pitting edema in bilateral lower extremities. Venous stasis changes. Tender to palpation. No joint swelling or clubbing. Skin: warm, dry, and intact. - Assessment and Plan (1) COPD exacerbation Current Visit: No Status: Acute (2) Obesity hypoventilation syndrome Current Visit: No Status: Chronic (3) Morbid obesity with BMI of 60.0-69.9, adult Current Visit: No Status: Acute (4) A-fib Current Visit: No Status: Chronic (5) Acute on chronic respiratory failure with hypoxia and hypercapnia Current Visit: Yes Status: Acute (6) Acute on chronic systolic (congestive) heart failure Current Visit: Yes Status: Acute (7) Hyperlipidemia Current Visit: Yes Status: Chronic (8) Bacterial pneumonia Current Visit: Yes Status: Acute - Time Spent with Patient Total time spent is greater than 50% in coordination of care (as documented) at patient's floor/unit and/or counseling patient: Internal Medicine: Result - Labs CBC & Chem 7: 04/12/18 03:53 04/12/18 03:53 Labs: Short CBC 04/12/18 Range/Units 03:53 WBC 10.6 (4.3-11.1) K/mcL Hgb 11.0 L (12.9-16.9) g/dL Hct 39.3 (37.5-50.1) % Plt Count 201 (140-400) K/mcL Neutrophils # 9.0 H (1.6-8.9) K/mcL BMP 04/12/18 03:53 Sodium 143 Potassium 4.3 Chloride 87 L Carbon Dioxide > 45 H* BUN 24 H Creatinine 0.57 L Glucose 123 H Calcium 9.2 - ABG Interpretation ABG results: ABG ABG pH 7.37 pH Units (7.32-7.45) 04/11/18 10:22 ABG pCO2 98 mmHg (35-45) H* 04/11/18 10:22 ABG pO2 61 mmHg (85-104) L 04/11/18 10:22 ABG O2 Saturation 88 % (95-98) L 04/11/18 10:22 PT/INR, D-dimer PT 28.8 Seconds (9.4-12.1) H 04/12/18 03:53 Consult Discharge Plan - Plan Referrals: Jay Cool MD [Primary Care Provider] - (4) A-fib Qualifiers: Atrial fibrillation type: chronic Qualified Code(s): I48.2 - Chronic atrial fibrillation
[2018-04-12] MEDS ORDERED: Doxycycline 100 MG CAPSULE PO SCH (09:00)
[2018-04-12] MEDS: *HR* Amiodarone 200 MG TABLET PO SCH (09:31)
[2018-04-12] MEDS: Multivit/Ca/Min/Fe/FA 1 TAB TABLET PO SCH (09:31)
[2018-04-12] MEDS: Fluticasone Propionate Nasal 50 MCG/SPRAY BOTTLE NS SCH (09:32)
[2018-04-12] MEDS: Furosemide 40 MG/4 ML VIAL IVP SCH (09:35)
--- NOTE | 2018-04-12 09:45 | Discharge Summary ---
<Wen Ayala - Last Filed: 04/12/18 09:41> Date of Encounter: 04/12/18 Time of Encounter: 08:00 - Discharge Diagnosis (1) COPD exacerbation Priority: Primary Status: Acute (2) Obesity hypoventilation syndrome Priority: Primary Status: Chronic (3) Morbid obesity with BMI of 60.0-69.9, adult Priority: Secondary Status: Acute (4) A-fib Priority: Secondary Status: Chronic Qualifiers: Atrial fibrillation type: chronic Qualified Code(s): I48.2 - Chronic atrial fibrillation (5) Acute on chronic respiratory failure with hypoxia and hypercapnia Priority: Primary Status: Acute (6) Acute on chronic systolic (congestive) heart failure Priority: Primary Status: Acute (7) Hyperlipidemia Priority: Secondary Status: Chronic Qualifiers: Qualified Code(s): E78.5 - Hyperlipidemia, unspecified (8) Bacterial pneumonia Priority: Primary Status: Acute Hospital course: Mr. Rubalcava is a 57 year old male with past medical history of COPD on 6L home oxygen, obstructive sleep apnea, obesity hypoventilation syndrome, CHF with ICD, A-fib on Coumadin, and HLD. Patient presented to [facility] ED on 04/09/19 for shortness of breath for 1 week. Patient was recently discharged from hospital on 03/15/18 for dyspnea from COPD. Patient states that he has not used his BiPAP since discharge. states he doesnt like using it. reports that they can tell when the CO2 is building up and they both knew hed have to go to the hospital soon. On presentation, patient had conversational dyspnea and tachypnea with oxygen saturation 86% on 6L. Other vital signs were stable. CBC was unremarkable. BMP showed elevated bicarb at >45. Hepatic panel was unremarkable. Coag study was unremarkable. Lactic acid was normal. ABG showed pH 7.34, pCO2 elevated at 101, pO2 decreased at 58, and HCO3 elevated at 55. BNP was normal. Serial troponins were negative. Lipid panel was unremarkable. EKG was unremarkable. CXR showed cardiomegaly with vascular congestion, bilateral pleural effusion, and possible infiltrate vs atelectasis could not be excluded. Patient was treated for acute on chronic respiratory failure with hypoxia and hypercapnia secondary to BiPAP noncompliance with BiPAP, oxygen supplementation , bronchodilators, steroids, and prophylactic cefepime. Volume overload was treated with diuresis. Symptoms are improved and breathing is back to baseline. - Time Spent with Patient Total time spent providing and/or coordinating discharge services: Greater than 30 minutes (42 minutes) - Discharge Medications Prescriptions: Doxycycline 100 mg PO BID #5 capsule predniSONE [PredniSONE] See Taper PO DAILY #35 tablet Home Medications: Atorvastatin Calcium [Lipitor] 80 mg PO DAILY 05/04/15 [History] Multivitamin/Ferrous Sulfate [One-Daily Zgwua-Jiv-Tult Tab] 1 tab PO DAILY 05/04 [History] Potassium Chloride [Klor-Con 10] 20 meq PO DAILY 05/05/16 [History] Albuterol Neb [Proventil Neb] 2.5 mg IH Q4HR PRN 14 Days vial.neb 05/07/16 [Rx] Citalopram [CeleXA] 40 mg PO DAILY #20 tablet 05/28/16 [Rx] Oxygen 4 l IH AD 12/12/16 [History] Amiodarone [Cordarone] 200 mg PO DAILY 11/23/17 [History] Fluticasone Propionate Nasal [Flonase] 1 spr NS BID 11/23/17 [History] Ipratropium/Albuterol Neb [Duoneb] 3 ml IH QIDR 30 Days #1 11/25/17 [Rx] Fluticasone/Salmeterol [Advair Hfa 45-21 Mcg Inhaler] 1 puff IH BID 01/04/18 [ History] Warfarin [Coumadin] 8 mg PO DAILY 01/04/18 [History] Furosemide [Lasix] 40 mg PO BID #60 tab 01/08/18 [Rx] Doxycycline 100 mg PO BID #5 capsule 04/12/18 [Rx] predniSONE [PredniSONE] See Taper PO DAILY #35 tablet 04/12/18 [Rx] Allergies/Adverse Reactions: 3 Allergy/AdvReac Type Severity Reaction Status Date / Time OLIVER Inhibitors AdvReac Cough Verified 02/09/18 12:02 Date of admission: 04/09/18 16:08 Primary care physician: Jay Cool MD Consults: 04/11/18 08:57 Consult to Physical Therapy [CONS] Routine Comment: Evaluate, develop and implement POC Reason for Consult: deconditioning Does patient have active BEDREST order?: No Is patient medically & hemodynamically stable?: Yes Patient assessed for mobility or mobilized this visit?: No Discharging clinician: Wen Ayala Anticipated date of discharge: 04/12/18 - Constitutional Vitals: Temp Pulse Resp BP Pulse Ox 98.3 F 69 19 138/85 93 04/11/18 21:26 04/12/18 04:25 04/12/18 07:21 04/12/18 04:25 04/12/18 07:21 Exam: General: Morbidly obese. Alert and oriented x3. No acute distress. Head: atraumatic, normocephalic. Eye: pupils equal and round. Sclera anicteric. EOMI. Neck: supple. Trachea midline. Lungs: CTAB. No rhonchi, rales, or wheezing. No respiratory distress. No accessory muscle use. Cardiovascular: Normal S1 & S2. No rubs or gallops. No JVD. Pulse regular. Abdomen: Morbidly obese. Normal bowel sounds. Diffusely tender to palpation. No rigidity, no rebound. Extremities: No pitting edema in bilateral lower extremities. Venous stasis changes. Tender to palpation. No joint swelling or clubbing. Skin: warm, dry, and intact. - Patient Status Disposition: Home, Self-Care Condition: Good - Discharge Instructions Instructions: Doxycycline (By mouth), Prednisone (By mouth), Heart Failure (DC) Follow Up With: Jay Cool MD [Primary Care Provider] - 04/17/18 10:00 am Additional Instructions: Use BiPAP at home appropriately to prevent recurrent hospitalizations. - Diet and Activity Activity: increase activity as tolerated Diet: low fat, low cholesterol, low salt diet <Ame Buitrago - Last Filed: 04/12/18 17:33> Date of Encounter: 04/12/18 - Discharge Diagnosis (1) COPD exacerbation Status: Acute (2) Obesity hypoventilation syndrome Status: Chronic (3) Morbid obesity with BMI of 60.0-69.9, adult Status: Acute (4) A-fib Status: Chronic Qualifiers: Atrial fibrillation type: chronic Qualified Code(s): I48.2 - Chronic atrial fibrillation (5) Acute on chronic respiratory failure with hypoxia and hypercapnia Status: Acute (6) Acute on chronic systolic (congestive) heart failure Status: Acute (7) Hyperlipidemia Status: Chronic Qualifiers: Qualified Code(s): E78.5 - Hyperlipidemia, unspecified (8) Bacterial pneumonia Status: Acute Hospital course: Mr. Rubalcava is a 57 year old male - Time Spent with Patient Total time spent providing and/or coordinating discharge services: Date of admission: 04/09/18 16:08 Primary care physician: Jay Cool MD Consults: 04/11/18 08:57 Consult to Physical Therapy [CONS] Routine Comment: Evaluate, develop and implement POC Reason for Consult: deconditioning Does patient have active BEDREST order?: No Is patient medically & hemodynamically stable?: Yes Patient assessed for mobility or mobilized this visit?: No - Constitutional Vitals: Temp Pulse Resp BP Pulse Ox 98.3 F 69 24 138/85 83 04/11/18 21:26 04/12/18 04:25 04/12/18 11:25 04/12/18 04:25 04/12/18 11:25 - Attending Attestation General: Morbidly obese. Alert and oriented x3. No acute distress. Head: atraumatic, normocephalic. Eye: pupils equal and round. Sclera anicteric. EOMI. Neck: supple. Trachea midline. Lungs: CTAB. No rhonchi, rales, or wheezing. No respiratory distress. No accessory muscle use. Cardiovascular: Normal S1 & S2. No rubs or gallops. No JVD. Pulse regular. Abdomen: Morbidly obese. Normal bowel sounds. Diffusely tender to palpation. No rigidity, no rebound. Extremities: No pitting edema in bilateral lower extremities. Venous stasis changes. Tender to palpation. No joint swelling or clubbing. Skin: warm, dry, and intact. Managed for acute hypoxic hypercapneic respiratory secondary to acute COPD exacerbation, obesity hypoventilation syndrome, acute diastolic CHF. Agree with discharge summary as above
[2018-04-12] MEDS: Budesonide/Formoterol 160/4.5 1 PUFF INH IH SCH (11:25)
[2018-04-12 11:32] LABS: ABG Base Excess 25 mEq/L (-2 to 3); ABG HCO3 56 mEq/L (21-27); ABG Oxygen Saturation 76 % (95-98); ABG PCO2 89 mmHg (35-45); ABG PH 7.41 pH Units (7.32-7.45); ABG PO2 45 mmHg (85-104); ABG TCO2 58 mEq/L (20-26)
[2018-04-12] MEDS ORDERED: *HR* Warfarin 4 MG TABLET PO ONE (18:00)
== END 2018-04-12 14:43 | disposition home or self-care (01) | DRG 190 ==
LOC: 2NENU → SUATTDRO 16:08
PROVIDERS: ADMIT Internal Medicine; ATTEND Student in an Organized Health Care Education/Training Program

== ENCOUNTER 2018-07-08 23:44 | Inpatient (IN) ==
--- NOTE | 2018-07-09 03:33 | Internal Med History&Physical ---
<Rashaad Doll - Last Filed: 07/09/18 04:26> Date of Encounter: 07/09/18 Time of Encounter: 03:29 Internal Medicine - H&P: HPI Chief complaint: SOB Admitted From: Intrahospital Transfer ([facility]) History of present illness: Mr. Rubalcava is a 57 year old male with a past medical history of COPD with 6 L oxygen dependence at baseline, chronic hypercapnia, diastolic heart failure, pacemaker, atrial fibrillation on Coumadin, CAD, hypertension, hyperlipidemia, obesity hypoventilation syndrome, and GAVIN with nighttime CPAP noncompliance who presented complaining of shortness of breath, productive cough with pink frothy phlegm production, congestion, abdominal distention, and weight gain. In the ED he required 6 L oxygen to maintain his sats above 90%. Chest x-ray revealed findings of congestive heart failure with bilateral pleural effusions and cardiomegaly. Patient denies associated fever, chills, chest pain, abdominal pain, dysuria, confusion, or recent illnesses. Patient was admitted in June 2018 for a similar presentation and instructed on the importance of wearing his CPAP at night. Past Med Surg Social Fam HX - Past Medical History Medical history: atrial fibrillation, CHF, COPD, coronary artery disease, hyperlipidemia, hypertension, other Additional medical history: deaf right ear Psychiatric history: anxiety, depression - Past Surgical History Surgical History: pacemaker/AICD - Social History Smoking Status: Former smoker Smokeless Tobacco Status: No Alcohol use: none Drug use: none - Family History Mother Family Member Ethnicity: Non- Living Status: Still Living Hx Family Cardiac Disorders: No Hx Family Respiratory Disorders: No Hx Family Cancer: Yes (uterine) Hx Family GI Disorders: No Hx Family Endocrine Disorder: No Father Adopted: No Family Member Ethnicity: Non- Living Status: Hx Family Cancer: Yes (lung/ kidney) Hx Family GI Disorders: No Internal Medicine - H&P: Meds Atorvastatin Calcium [Lipitor] 80 mg PO DAILY 05/04/15 [History] Multivitamin/Ferrous Sulfate [One-Daily Hriir-Hnk-Eheb Tab] 1 tab PO DAILY 05/04/15 [History] Potassium Chloride [Klor-Con 10] 20 meq PO DAILY 05/05/16 [History] Albuterol Neb [Proventil Neb] 2.5 mg IH Q4HR PRN 14 Days vial.neb 05/07/16 [Rx] Citalopram [CeleXA] 40 mg PO DAILY #20 tablet 05/28/16 [Rx] Oxygen 6 l IH AD 12/12/16 [History] Amiodarone [Cordarone] 200 mg PO DAILY 11/23/17 [History] Fluticasone Propionate Nasal [Flonase] 1 spr NS BID 11/23/17 [History] Ipratropium/Albuterol Neb [Duoneb] 3 ml IH QIDR 30 Days #1 11/25/17 [Rx] Fluticasone/Salmeterol [Advair Hfa 45-21 Mcg Inhaler] 1 puff IH BID 01/04/18 [History] Warfarin [Coumadin] 8 mg PO DAILY 01/04/18 [History] Furosemide [Lasix] 40 mg PO BID #60 tab 01/08/18 [Rx] Benzonatate [Tessalon] 100 mg PO TID 07/08/18 [History] Guaifenesin [Mucinex] 600 mg PO BID 07/08/18 [History] Levofloxacin [Levaquin] 500 mg PO DAILY 07/08/18 [History] Allergy/AdvReac Type Severity Reaction Status Date / Time OLIVER Inhibitors AdvReac Cough Verified 07/08/18 21:36 All Systems PM: A 10-system review of systems was performed and is negative for pertinent f indings except as documented above in the HPI. - Constitutional Constitutional: fatigue, lethargy, weakness, weight gain, no chills, no fever(s) - EENT Eyes: no blurry vision, no diplopia Nose, mouth and throat: no dysphagia, no sinus pain - Cardiovascular Cardiovascular ROS IM: dyspnea, edema, no chest pain - Respiratory Respiratory: cough, excessive phlegm production, change in phlegm color, no hemoptysis - Gastrointestinal Gastrointestinal: bloating, no abdominal pain, no diarrhea, no nausea, no vomiting - Genitourinary Genitourinary ROS male: no dysuria, no urinary frequency, no urinary urgency - Musculoskeletal Musculoskeletal ROS IM: no numbness, no tingling - Integumentary Integumentary IM: no new lesions, no rash - Neurological Neurological ROS: no confusion, no headache(s), no weakness - Psychiatric Psychiatric: no anxiety, no depression - Endocrine Endocrine IM: fatigue, no polydipsia, no polyphagia, no polyuria - Constitutional General appearance: Present: A&O X 3, morbidly obese, no acute distress (Wearing BiPAP), answers questions appropriately Exam: awake, A&Ox3 - Head Head exam: Present: atraumatic, normocephalic - Eye Eye exam: Present: PERRL, conjuntiva pink, sclera anicteric Pupils: Present: PERRL - ENT ENT exam: Present: mucous membranes moist (Wearing BiPAP), normal oropharynx - Neck Neck exam general surgery: Present: supple, trachea midline. Absent: lymphadenopathy - Respiratory Respiratory exam: Present: rales, respiratory distress (Mild increased work of breathing). Absent: accessory muscle use - Cardiovascular Cardiovascular exam: Present: RRR, +S1, +S2. Absent: diastolic murmur, gallop, rubs, systolic murmur - GI/Abdominal GI/Abdominal exam: Present: distended (Obese), normal bowel sounds, soft, no peritoneal signs. Absent: tenderness - Extremities Exam Extremities exam: Present: pedal edema (1+), warm, radial pulses palpable and symmetrical. Absent: calf tenderness, cyanotic - Neurological Exam Neurological exam: Present: CN II-XII intact, oriented X3, no focal deficits. Absent: facial droop, speech deficit - Psychiatric Psychiatric exam: Present: normal affect, normal mood - Skin Skin exam: Present: dry, erythema (Beneath left breast), intact, warm Internal Med - H&P Results - ABG Interpretation Interpretation: ABG interpreted by me Interpretation: abnormal, respiratory acidosis - Pulse Oximetry Interpretation Digit-Finger O2 Sat by Pulse Oximetry: 70 (On 7 L nasal cannula) Actions taken: placed on BiPAP - EKG Data -: EKG Interpreted by Myself EKG shows normal: sinus rhythm (Sinus rhythm rate 84 UT 183 QRS 91 QT 385) - Impressions XR/XR chest 1V portable IMPRESSION: 1. Findings of congestive heart failure with bilateral pleural effusion. 2. Calcific atherosclerosis aorta. 3. Cardiomegaly. D/ / Nimesh Norman / Nimesh Norman Interpreting Provider: Nimesh Norman - Assessment and plan (1) Acute on chronic respiratory failure with hypoxia and hypercapnia Current Visit: Yes Status: Acute Assessment and plan: Patient presented with acute respiratory distress, increased work of breathing, PO2 70% on 7 L-O oxygen Patient wears 6 L supplemental oxygen at baseline secondary to COPD ABG reveals hypercapnia, appears at baseline. Patient is A&O 3 and protecting his airway without difficulty Patient placed on BiPAP Continue duonebs and close monitoring (2) Acute exacerbation of chronic obstructive airways disease Current Visit: Yes Status: Acute Assessment and plan: Continue antibiotics, steroids, and bronchodilators (3) Acute diastolic (congestive) heart failure Current Visit: Yes Status: Acute Assessment and plan: Patient presented with shortness of breath, signs of fluid overload on exam CXR revealed findings of congestive heart failure with bilateral pleural effusions and cardiomegaly. Echo on 11/24/17 revealed LVEF 50%, mildly dilated LV, indeterminate diastolic function, atypical septal motion to paced rhythm Patient takes Lasix 40 mg by mouth twice a day Start Lasix 40 mg IV twice a day Monitor strict I's and O's and daily weights 1.5 L of fluid restricted diet (4) Atrial fibrillation Current Visit: No Status: Chronic Assessment and plan: Currently rate controlled on oral medication. Continue warfarin for anticoagulation Qualifiers: Atrial fibrillation type: paroxysmal Qualified Code(s): I48.0 - Paroxysmal atrial fibrillation (5) Anemia Current Visit: No Status: Acute Assessment and plan: Hemoglobin at baseline, no signs of active bleeding. Continue monitoring. Qualifiers: Anemia type: unspecified type Qualified Code(s): D64.9 - Anemia, unspecified (6) Hypertension Current Visit: No Status: Chronic Assessment and plan: Resume home meds. Continue monitoring. Qualifiers: Hypertension type: essential hypertension Qualified Code(s): I10 - Essential (primary) hypertension (7) Hyperlipidemia Current Visit: No Status: Chronic Assessment and plan: Resume home statin Qualifiers: Qualified Code(s): E78.5 - Hyperlipidemia, unspecified (8) Morbid obesity with BMI of 60.0-69.9, adult Current Visit: Yes Status: Chronic Assessment and plan: Lifestyle modification. (9) Obesity hypoventilation syndrome Current Visit: Yes Status: Chronic Assessment and plan: Lifestyle modification. Outpatient follow-up. (10) GAVIN (obstructive sleep apnea) Current Visit: Yes Status: Chronic Assessment and plan: Patient has noncompliance to home CPAP. (11) DVT prophylaxis Current Visit: Yes Status: Acute Assessment and plan: Continue warfarin. - Time Spent With Patient Total time spent is greater than 50% in coordination of care (as documented) at patient's floor/unit and/or counseling patient: <Efraín Ho - Last Filed: 07/09/18 06:42> Date of Encounter: 07/09/18 Internal Medicine - H&P: HPI History of present illness: Mr. Rubalcava is a 57 year old male All Systems PM: A 10-system review of systems was performed and is negative for pertinent findings except as documented above in the HPI. - Constitutional Vitals: Resp Pulse Ox 15 94 07/09/18 05:42 07/09/18 05:42 Internal Med - H&P Results - ABG Interpretation ABG results: 07/09/18 05:29 ABG pH 7.29 L ABG pCO2 106 H* ABG pO2 98 ABG HCO3 51 H ABG Total CO2 > 50 H ABG O2 Saturation 96 ABG Base Excess 20 H - Time Spent With Patient Total time spent is greater than 50% in coordination of care (as documented) at patient's floor/unit and/or counseling patient: - Attending Attestation I performed a history and physical examination of the patient and discussed his management with the resident. I reviewed the resident's note and agree with the assessment and plan of care. In short patient is a 57-year-old male with a past medical history significant for COPD on 6 L home oxygen and congestive heart failure with multiple admissions for the same who again presents with acute on chronic hypercapnic hypoxic respiratory failure with a PCO2 greater than 90. Patient has a known history of noncompliance with his CPAP at home and admits to the same. Admitted for treatment of COPD and CHF exacerbation. Would appreciate pulmonary involvement. We will continue diuresis, nebulizers and steroids.
[2018-07-09] MEDS ORDERED: Naloxone 0.4 MG/ML INJ IVP PRN (03:55)
[2018-07-09] MEDS ORDERED: Acetaminophen 325 MG TABLET PO PRN (03:55)
[2018-07-09] MEDS ORDERED: Ondansetron 4 MG/2 ML VIAL IVP PRN (03:55)
[2018-07-09 05:33] LABS: ABG Base Excess 20 mEq/L (-2 to 3); ABG HCO3 51 mEq/L (21-27); ABG Oxygen Saturation 96 % (95-98); ABG PCO2 106 mmHg (35-45); ABG PH 7.29 pH Units (7.32-7.45); ABG PO2 98 mmHg (85-104); ABG TCO2 > 50 mEq/L (20-26); Blood Gas Modality BiLevel; Blood Gas PEEP 8 cm H2O
[2018-07-09] MEDS: Ipratropium/Albuterol Neb 3 ML IH SCH ×4 (05:39→22:33)
[2018-07-09 06:37] LABS: INR 3.1; Prothrombin Time 35.5 Seconds (9.4-12.1)
--- NOTE | 2018-07-09 08:42 | Pulmonology Consult Note ---
<Jas Frey W - Last Filed: 07/09/18 17:58> Date of Encounter: 07/09/18 Medications and Allergies Atorvastatin Calcium [Lipitor] 80 mg PO DAILY 05/04/15 [History] Multivitamin/Ferrous Sulfate [One-Daily Jhjyi-Mvb-Ehzl Tab] 1 tab PO DAILY 05/04/15 [History] Potassium Chloride [Klor-Con 10] 20 meq PO DAILY 05/05/16 [History] Albuterol Neb [Proventil Neb] 2.5 mg IH Q4HR PRN 14 Days vial.neb 05/07/16 [Rx] Oxygen 6 l IH AD 12/12/16 [History] Amiodarone [Cordarone] 200 mg PO DAILY 11/23/17 [History] Fluticasone Propionate Nasal [Flonase] 1 spr NS BID 11/23/17 [History] Fluticasone/Salmeterol [Advair Hfa 45-21 Mcg Inhaler] 1 puff IH BID 01/04/18 [History] Warfarin [Coumadin] 8 mg PO DAILY 01/04/18 [History] Furosemide [Lasix] 40 mg PO BID #60 tab 01/08/18 [Rx] Benzonatate [Tessalon] 100 mg PO TID PRN 07/08/18 [History] Guaifenesin [Mucinex] 600 mg PO BID 07/08/18 [History] Levofloxacin [Levaquin] 500 mg PO DAILY 07/08/18 [History] Citalopram Hydrobromide [Citalopram HBr] 40 mg PO DAILY 07/09/18 [History] Allergy/AdvReac Type Severity Reaction Status Date / Time OLIVER Inhibitors AdvReac Cough Verified 07/08/18 21:36 All Systems: The remainder of the systems were reviewed and are negative Physical Examination Vital Signs: Vital Signs, Last 4 Hours Temp Pulse Resp BP Pulse Ox 07/09/18 16:45 97.9 F 79 18 142/79 96 07/09/18 16:32 16 96 07/09/18 15:32 16 96 Results - Laboratory Findings CBC and BMP: 07/09/18 08:26 ABG ABG pH 7.29 pH Units (7.32-7.45) L 07/09/18 05:29 ABG pCO2 106 mmHg (35-45) H* 07/09/18 05:29 ABG pO2 98 mmHg (85-104) 07/09/18 05:29 ABG O2 Saturation 96 % (95-98) 07/09/18 05:29 PT/INR, D-dimer PT 35.5 Seconds (9.4-12.1) H 07/09/18 06:03 Abnormal lab findings: Abnormal lab results PT 35.5 Seconds (9.4-12.1) H 07/09/18 06:03 ABG pH 7.29 pH Units (7.32-7.45) L 07/09/18 05:29 ABG pCO2 106 mmHg (35-45) H* 07/09/18 05:29 ABG HCO3 51 mEq/L (21-27) H 07/09/18 05:29 ABG Total CO2 > 50 mEq/L (20-26) H 07/09/18 05:29 ABG Base Excess 20 mEq/L (-2 to 3) H 07/09/18 05:29 Chloride 89 mEq/L (98-107) L 07/09/18 08:26 Carbon Dioxide > 45 mEq/L (23-29) H* 07/09/18 08:26 Creatinine 0.61 mg/dL (0.70-1.30) L 07/09/18 08:26 BUN/Creatinine Ratio 31 (6-26) H 07/09/18 08:26 Glucose 174 mg/dL (70-105) H 07/09/18 08:26 - Clinical Findings Intake & Output: Intake & Output 07/09/18 07/09/18 07/09/18 07:59 15:59 23:59 Intake Total 120 / 120 Output Total 200 / 200 150 / 150 1200 / 1200 Balance -200 / -200 -30 / -30 -1200 / -1200 Weight 192.6 kg Consult Discharge Plan - Plan Referrals: NONE,PCP [Primary Care Provider] - - Attending Attestation I examined this patient and my medical decision-making was reviewed with the Resident Physician. I agree with the documented findings, disposition and treatment plan as described except to the extent set forth below. We i ndependently had [id number] contact with the patient Patient seen and examined at bedside Labs, radiology, chart personally reviewed. Impression: Acute on chronic hypoxic hypercapnic respiratory failure COPD with exacerbation Acute on chronic heart failure Morbid obesity Hypoventilation syndrome/GAVIN Medical noncompliance Recs: I transition the patient from traditional BiPAP to AVAPS NIV she has tolerated in the past we will try to approximate these settings to BiPAP prior to disc harge. Outpatient polysomnogram for titration of her BiPAP settings and sleep disordered breathing I also offered the patient possibility of a permanent tracheostomy given issues with recurrent exacerbations Oral glucocorticoids to complete 2-3 week taper As tolerated suspected benefit from a net negative volume status of 1-2 L over the next 24-48 hours as tolerated by kidney function Consider macrolide antibiotics for COPD exacerbation as no clear evidence of infectious process at this time but would defer to the primary hospitalist service for this Overall prognosis poor needs outpatient pulmonary follow-up in 1-2 weeks at the time of discharge Pulmonary will sign off thank you very much for this consultation please call with any questions <Sherley Bethea - Last Filed: 07/09/18 21:03> Date of Encounter: 07/09/18 Time of Encounter: 08:41 Assessment and Plan (1) Acute on chronic respiratory failure with hypoxia and hypercapnia Current Visit: Yes Status: Acute Multifactorial etiology, including COPD and CHF exacerbations, as well as noncompliance with NIV at home. - Recommend changing to AVAPS as patient has tolerated this well in the past - Further recommendations as detailed below (2) COPD exacerbation Current Visit: No Status: Resolved - Continue bronchodilators - Systemic corticosteroids with plan for 2 week taper at time of discharge - Consider use of azithromycin for antiinflammatory benefits as patient does not appear to have acute infection at this time (3) CHF exacerbation Current Visit: No Status: Acute - Continue diuresis and management per primary team Qualifiers: Qualified Code(s): I50.33 - Acute on chronic diastolic (congestive) heart failure (4) GAVIN (obstructive sleep apnea) Current Visit: Yes Status: Chronic - NIV at bedtime and during naps - Emphasized importance of compliance with NIV at home in preventing future exacerbations and to slow overall progression of his disease process (5) Obesity hypoventilation syndrome Current Visit: Yes Status: Chronic History of Present Illness Consult date: 07/09/18 Requesting physician: Efraín Ho Reason for consult: COPD, hypoxemia Chief complaint: Worsening dyspnea History of present illness: Mr. Rubalcava is a 57-year old male with a history of COPD, GAVIN, chronic hypercapnia, CHF< and atrial fibrillation. He presented to [facility] due to worsening shortness of breath associated with cough, congestions, and weight gain. CXR demonstrated findings of congestive heart failure with bilateral pleural effusion, calcific atherosclerosis aorta, and cardiomegaly. He has been admitted to [facility] multiple times for similar complaints, and was transferred for admission and management of acute COPD and CHF exacerbations. Patient was seen and evaluated at the bedside. He is currently on BiPAP, but responds to questions appropriately. He reports some improvement in his br eathing since admission. He denies any acute complaints or concerns at this time other than being hungry. Past Med Surg Social Fam HX - Past Medical History Medical history: atrial fibrillation, CHF, COPD, coronary artery disease, hyperlipidemia, hypertension, other Additional medical history: deaf right ear Psychiatric history: anxiety, depression - Past Surgical History Surgical History: pacemaker/AICD - Social History Smoking Status: Former smoker Smokeless Tobacco Status: No Alcohol use: none Drug use: none - Family History Mother Family Member Ethnicity: Non- Living Status: Still Living Hx Family Cardiac Disorders: No Hx Family Respiratory Disorders: No Hx Family Cancer: Yes (uterine) Hx Family GI Disorders: No Hx Family Endocrine Disorder: No Father Adopted: No Family Member Ethnicity: Non- Living Status: Age at : 53 Cause of : cancer Hx Family Cancer: Yes (lung/ kidney) Hx Family GI Disorders: No All Systems: The remainder of the systems were reviewed and are negative - Constitutional Constitutional: fatigue, no fever(s), no night sweats - Respiratory Respiratory: dyspnea, dyspnea on exertion, wheezing Physical Examination Vital Signs: Vital Signs, Last 4 Hours Resp Pulse Ox 07/09/18 05:42 15 94 General appearance: no acute distress, alert Eyes: nonicteric ENT: oropharynx moist Effort: normal Inspection: normal Auscultation: bilateral: diminished breath sounds Cardiovascular: regular rate and rhythm Integumentary: rash (LE skin changes consistent with chronic venous stasis) Extremities: edema (1+ bilateral LE edema) Musculoskeletal: no deformities normal mental status, non-focal exam mood appropriate, affect normal Results - Laboratory Findings CBC and BMP: 07/09/18 08:26 ABG ABG pH 7.29 pH Units (7.32-7.45) L 07/09/18 05:29 ABG pCO2 106 mmHg (35-45) H* 07/09/18 05:29 ABG pO2 98 mmHg (85-104) 07/09/18 05:29 ABG O2 Saturation 96 % (95-98) 07/09/18 05:29 PT/INR, D-dimer PT 35.5 Seconds (9.4-12.1) H 07/09/18 06:03 Abnormal lab findings: Abnormal lab results PT 35.5 Seconds (9.4-12.1) H 07/09/18 06:03 ABG pH 7.29 pH Units (7.32-7.45) L 07/09/18 05:29 ABG pCO2 106 mmHg (35-45) H* 07/09/18 05:29 ABG HCO3 51 mEq/L (21-27) H 07/09/18 05:29 ABG Total CO2 > 50 mEq/L (20-26) H 07/09/18 05:29 ABG Base Excess 20 mEq/L (-2 to 3) H 07/09/18 05:29 - Clinical Findings Intake & Output: Intake & Output 07/08/18 07/09/18 07/09/18 23:59 07:59 15:59 Weight 192.6 kg
[2018-07-09] MEDS ORDERED: levoFLOXacin 500 MG TABLET PO SCH (09:00)
[2018-07-09] MEDS ORDERED: Furosemide 40 MG/4 ML VIAL IVP SCH (09:00)
[2018-07-09] MEDS ORDERED: *HR* Warfarin 4 MG TABLET PO SCH (09:00)
[2018-07-09 09:05] LABS: BUN/Creatinine Ratio 31 (6-26); Blood Urea Nitrogen 19 mg/dL (6-20); Calcium 9.3 mg/dL (8.6-10.3); Carbon Dioxide > 45 mEq/L (23-29); Chloride 89 mEq/L (98-107); Glucose 174 mg/dL (70-105); Osmolality,Calculated 300 (280-300); Potassium 4.8 mEq/L (3.5-5.1); Sodium 142 mEq/L (136-145); eGFR For Non-African Americans > 60 (> 60)
[2018-07-09] MEDS: Benzonatate 100 MG CAPSULE PO SCH ×4 (10:38→22:04)
[2018-07-09] MEDS: *HR* Amiodarone 200 MG TABLET PO SCH (10:38)
[2018-07-09] MEDS: predniSONE 20 MG TABLET PO SCH (11:57)
--- NOTE | 2018-07-09 13:02 | Event Note ---
Date of Encounter: 07/09/18 Time of Encounter: 12:58 Patient seen and examined at bedside. Patient states that he felt better. BiPAP at the time my exam and was tolerating this well. He was requiring his full 6 L of oxygen which he uses a home. Does report mild shortness of breath and cough. Gen.: Alert and oriented 3, no acute distress, morbidly obese HEENT: Mucous membranes moist Lungs: Severely diminished bibasilar, I cannot appreciate any rales, rhonchi, wheezes Heart: Irregularly irregular, no murmurs, rubs, gallops Abdomen: Soft, nontender, nondistended. Obese, normal active bowel sounds Extremities: 2+ lower extremity edema Assessment and plan: #1 acute on chronic respiratory failure: Multifactorial due to COPD exacerbation and heart failure exacerbation as well as noncompliance with BiPAP at home. It was stressed upon patient that he needs to use his BiPAP while he is sleeping at any time. #2 acute exacerbation of COPD: Continue antibiotics, steroids, scheduled bronchodilators #3 Acute exacerbation of diastolic heart failure: Patient appears acutely fluid overloaded, treat with IV furosemide 40 mg twice a day, place Bucio for strict I's and O's. Fluid restriction diet #4: Atrial fibrillation: Rate controlled, continue warfarin for anticoagulation
[2018-07-09] MEDS ORDERED: Warfarin perPT PO PRN (18:00)
[2018-07-09] MEDS ORDERED: *HR* Warfarin 5 MG TABLET PO ONE (18:00)
[2018-07-09] MEDS: Fluticasone Propionate Nasal 50 MCG/SPRAY BOTTLE NS SCH (21:59)
[2018-07-09] MEDS: Furosemide 40 MG/4 ML VIAL IVP SCH (21:59)
[2018-07-09] MEDS: Budesonide/Formoterol 160/4.5 1 PUFF INH IH SCH (22:33)
[2018-07-10] MEDS: Ipratropium/Albuterol Neb 3 ML IH SCH ×4 (04:53→22:27)
[2018-07-10 05:38] LABS: ABG Base Excess 25 mEq/L (-2 to 3); ABG HCO3 56 mEq/L (21-27); ABG Oxygen Saturation 90 % (95-98); ABG PCO2 104 mmHg (35-45); ABG PH 7.34 pH Units (7.32-7.45); ABG PO2 69 mmHg (85-104); ABG TCO2 > 50 mEq/L (20-26)
[2018-07-10 06:17] LABS: Mean Platelet Volume 9.5 fL (9.4-12.4)
[2018-07-10 06:19] LABS: Hematocrit 35.9 % (37.5-50.1); Hemoglobin 9.9 g/dL (12.9-16.9); Mean Corpuscular HGB Conc 27.6 g/dL (31.6-35.5); Mean Corpuscular Hemoglobin 24.8 pg (28.0-33.3); Platelet Count 235 K/mcL (140-400); Red Blood Count 3.99 M/mcL (4.19-5.50); Red Cell Distribution Width 14.8 % (11.5-14.5)
[2018-07-10 06:25] LABS: INR 3.6; Prothrombin Time 40.1 Seconds (9.4-12.1)
[2018-07-10 06:40] LABS: BUN/Creatinine Ratio 40 (6-26); Blood Urea Nitrogen 28 mg/dL (6-20); Calcium 9.2 mg/dL (8.6-10.3); Carbon Dioxide > 45 mEq/L (23-29); Chloride 88 mEq/L (98-107); Glucose 104 mg/dL (70-105); Osmolality,Calculated 304 (280-300); Potassium 4.4 mEq/L (3.5-5.1); Sodium 144 mEq/L (136-145); eGFR For Non-African Americans > 60 (> 60)
[2018-07-10] MEDS: Furosemide 40 MG/4 ML VIAL IVP SCH ×2 (08:40→22:00)
[2018-07-10] MEDS: predniSONE 20 MG TABLET PO SCH (08:40)
[2018-07-10] MEDS: *HR* Amiodarone 200 MG TABLET PO SCH (08:40)
[2018-07-10] MEDS: Benzonatate 100 MG CAPSULE PO SCH ×3 (08:40→21:59)
[2018-07-10] MEDS: Fluticasone Propionate Nasal 50 MCG/SPRAY BOTTLE NS SCH ×2 (08:42→21:59)
[2018-07-10] MEDS: Budesonide/Formoterol 160/4.5 1 PUFF INH IH SCH ×2 (11:41→22:27)
--- NOTE | 2018-07-10 11:52 | Internal Med Progress Note ---
Hospitalist Progress Note - Encounter Date of Encounter: 07/10/18 Time of Encounter: 11:50 - Subjective Interval History: Patient seen and examined at bedside. Patient was sleeping when I entered the room and was not wearing his BiPAP. He is easily arousable and states that he feels better. He feels like his breathing is better. He denies any chest pain, shortness of breath, cough, fever, chills. - Exam Vitals: Temp Pulse Resp BP Pulse Ox 97.6 F 77 18 122/62 92 07/10/18 04:00 07/10/18 06:38 07/10/18 11:43 07/10/18 06:38 07/10/18 11:43 Exam: Gen.: Alert and oriented 3. No acute distress. Morbid obesity HEENT: Mucous membranes moist, no oral lesions Lungs: Severely diminished bibasilar, no rales, rhonchi, wheezes noted. No respiratory distress or accessory muscle use detected. Heart: Regular rate and rhythm, no murmurs, rubs, gallops. Abdomen: Soft, nontender, nondistended. Normoactive bowel sounds. Extremities: 2+ lower extremity pitting edema bilaterally. No clubbing or cyanosis noted. Chronic venous stasis lower extremity bilaterally. Neuro: Grossly intact, no focal deficits. - Assessment and Plan (1) Acute on chronic respiratory failure with hypercapnia Current Visit: Yes Status: Acute Assessment and Plan: Likely multifactorial in the setting of noncompliance with BiPAP, COPD, obesity hypoventilation syndrome, acute on chronic heart failure. ABG this morning reveals an improved PCO2 and pH. Continue treatment for COPD exacerbation as well as acute exacerbation of heart failure. I strongly encourage the patient to wear his BiPAP at all times while he was sleeping. (2) Acute exacerbation of chronic obstructive airways disease Current Visit: Yes Status: Suspected Assessment and Plan: Mild, likely contributing to his acute on chronic respiratory failure as above. Continue by mouth steroids, antibiotics and scheduled bronchodilators. Encourage use of BiPAP. (3) CHF (congestive heart failure) Current Visit: Yes Status: Acute Assessment and Plan: Likely contributing the patient's acute on chronic respiratory failure. Appears to be responding well to IV Lasix. -2.4 L since admission. Continue IV diuretics, fluid restriction diet, limit salt intake. (4) Atrial fibrillation Current Visit: Yes Status: Chronic Assessment and Plan: Rate controlled. Continue anticoagulation with Coumadin. (5) GAVIN (obstructive sleep apnea) Current Visit: Yes Status: Chronic Assessment and Plan: Strongly encourage BiPAP use while sleeping. (6) Hypoventilation associated with obesity syndrome Current Visit: Yes Status: Chronic Assessment and Plan: Strongly encourage BiPAP use while sleeping. Encourage weight loss. (7) DVT prophylaxis Current Visit: Yes Status: Acute Assessment and Plan: Currently anticoagulated with Coumadin. - Time Spent with Patient Total time spent is greater than 50% in coordination of care (as documented) at patient's floor/unit and/or counseling patient: Plan of Care Discussed with: patient Internal Medicine: Result - Labs CBC & Chem 7: 07/10/18 05:01 07/10/18 05:01 Labs: Short CBC 07/10/18 Range/Units 05:01 WBC 10.2 (4.3-11.1) K/mcL Hgb 9.9 L (12.9-16.9) g/dL Hct 35.9 L (37.5-50.1) % Plt Count 235 (140-400) K/mcL BMP 07/10/18 05:01 Sodium 144 Potassium 4.4 Chloride 88 L Carbon Dioxide > 45 H* BUN 28 H Creatinine 0.70 Glucose 104 Calcium 9.2 - ABG Interpretation ABG results: ABG ABG pH 7.34 pH Units (7.32-7.45) 07/10/18 05:34 ABG pCO2 104 mmHg (35-45) H* 07/10/18 05:34 ABG pO2 69 mmHg (85-104) L 07/10/18 05:34 ABG O2 Saturation 90 % (95-98) L 07/10/18 05:34 PT/INR, D-dimer PT 40.1 Seconds (9.4-12.1) H 07/10/18 05:01 Consult Discharge Plan - Plan Referrals: NONE,PCP [Primary Care Provider] - (3) CHF (congestive heart failure) Qualifiers: Heart failure type: diastolic Heart failure chronicity: acute on chronic Qualified Code(s): I50.33 - Acute on chronic diastolic (congestive) heart failure (4) Atrial fibrillation Qualifiers: Atrial fibrillation type: paroxysmal Qualified Code(s): I48.0 - Paroxysmal atrial fibrillation
[2018-07-10 17:46] LABS: Hematocrit 34.7 % (37.5-50.1); Hemoglobin 9.5 g/dL (12.9-16.9); Mean Corpuscular HGB Conc 27.4 g/dL (31.6-35.5); Mean Corpuscular Hemoglobin 24.5 pg (28.0-33.3); Mean Corpuscular Volume 89.7 fL (83.0-100.0); Mean Platelet Volume 9.5 fL (9.4-12.4); Platelet Count 250 K/mcL (140-400); Red Blood Count 3.87 M/mcL (4.19-5.50); Red Cell Distribution Width 15.1 % (11.5-14.5)
[2018-07-11] MEDS: Ipratropium/Albuterol Neb 3 ML IH SCH ×4 (05:05→22:58)
[2018-07-11 06:24] LABS: ABG Base Excess 30 mEq/L (-2 to 3); ABG HCO3 61 mEq/L (21-27); ABG Oxygen Saturation 95 % (95-98); ABG PCO2 99 mmHg (35-45); ABG PO2 83 mmHg (85-104); ABG TCO2 > 50 mEq/L (20-26); Blood Gas Modality avaps; Blood Gas PEEP 4 cm H2O; Blood Gas Pressure Support 25 cm H2O; Blood Gas VT 550 cc
[2018-07-11 06:31] LABS: Eosinophils % 0.3 %; Mean Platelet Volume 9.3 fL (9.4-12.4); Monocytes % 9.9 %
[2018-07-11 06:32] LABS: Basophils % 0.2 %; Hematocrit 33.4 % (37.5-50.1); Hemoglobin 9.2 g/dL (12.9-16.9); Immature Granulocytes % 0.4 % (0-4); Lymphocytes # 1.2 K/mcL (0.6-4.6); Lymphocytes % 11.8 %; Mean Corpuscular HGB Conc 27.5 g/dL (31.6-35.5); Mean Corpuscular Hemoglobin 24.7 pg (28.0-33.3); Mean Corpuscular Volume 89.5 fL (83.0-100.0); Neutrophils # 7.7 K/mcL (1.6-8.9); Platelet Count 224 K/mcL (140-400); Red Blood Count 3.73 M/mcL (4.19-5.50); Segmented Neutrophils % 77.4 %
[2018-07-11 06:35] LABS: INR 3.4; Prothrombin Time 38.5 Seconds (9.4-12.1)
[2018-07-11 06:50] LABS: BUN/Creatinine Ratio 40 (6-26); Blood Urea Nitrogen 27 mg/dL (6-20); Calcium 8.8 mg/dL (8.6-10.3); Carbon Dioxide > 45 mEq/L (23-29); Chloride 86 mEq/L (98-107); Glucose 116 mg/dL (70-105); Magnesium 2.4 mg/dL (1.6-2.6); Osmolality,Calculated 302 (280-300); Potassium 3.8 mEq/L (3.5-5.1); Sodium 143 mEq/L (136-145); eGFR For Non-African Americans > 60 (> 60)
[2018-07-11 07:01] LABS: Hypochromasia Present (Not Present); Platelet Estimate Normal (Normal)
[2018-07-11] MEDS: Benzonatate 100 MG CAPSULE PO SCH ×3 (10:04→21:16)
[2018-07-11] MEDS: *HR* Amiodarone 200 MG TABLET PO SCH (10:04)
[2018-07-11] MEDS: predniSONE 20 MG TABLET PO SCH (10:04)
[2018-07-11] MEDS: Fluticasone Propionate Nasal 50 MCG/SPRAY BOTTLE NS SCH ×2 (10:05→21:16)
[2018-07-11] MEDS: Furosemide 40 MG/4 ML VIAL IVP SCH ×2 (10:05→21:16)
[2018-07-11] MEDS: Budesonide/Formoterol 160/4.5 1 PUFF INH IH SCH ×2 (10:51→22:58)
--- NOTE | 2018-07-11 15:26 | Internal Med Progress Note ---
Hospitalist Progress Note - Encounter Date of Encounter: 07/11/18 Time of Encounter: 15:23 - Subjective Interval History: Patient seen and examined at bedside. He feels like his breathing is better reports mild dry cough. He reports he is wearing his BiPAP all sleeping and taking naps. He denies any chest pain, shortness of breath, fever, chills. - Exam Vitals: Temp Pulse Resp BP Pulse Ox 98.2 F 89 20 159/80 97 07/11/18 11:44 07/11/18 11:44 07/11/18 11:44 07/11/18 11:44 07/11/18 11:44 Exam: Gen.: Alert and oriented 3. No acute distress. Morbid obesity HEENT: Mucous membranes moist, no oral lesions Lungs: Severely diminished bibasilar, no rales, rhonchi, wheezes noted. No respiratory distress or accessory muscle use detected. Heart: Regular rate and rhythm, no murmurs, rubs, gallops. Abdomen: Soft, nontender, nondistended. Normoactive bowel sounds. Extremities: 2+ lower extremity pitting edema bilaterally. No clubbing or cyanosis noted. Chronic venous stasis lower extremity bilaterally. Neuro: Grossly intact, no focal deficits. - Assessment and Plan (1) Acute on chronic respiratory failure with hypercapnia Current Visit: Yes Status: Acute Assessment and Plan: Likely multifactorial in the setting of noncompliance with BiPAP, COPD, obesity hypoventilation syndrome, acute on chronic heart failure. ABG this morning reveals an stable PCO2 and pH. Continue treatment for COPD exacerbation as well as acute exacerbation of heart failure. I we will continue to strongly encourage the patient to wear his BiPAP at all times while he was sleeping while here also while at home. (2) Acute exacerbation of chronic obstructive airways disease Current Visit: Yes Status: Suspected Assessment and Plan: Mild, likely contributing to his acute on chronic respiratory failure as above. Continue by mouth steroids, antibiotics and scheduled bronchodilators. Plan to discontinue antibiotics and steroids after 5 days. Encourage use of BiPAP. (3) CHF (congestive heart failure) Current Visit: Yes Status: Acute Assessment and Plan: Likely contributing the patient's acute on chronic respiratory failure. Continues to respond well to IV Lasix. -4.2 L since admission. I think the patient will continue to benefit from IV diuresis for at least another day or 2. Closely monitor renal function, renal function reviewed and is stable at this time. (4) Atrial fibrillation Current Visit: Yes Status: Chronic Assessment and Plan: Rate controlled. Continue anticoagulation with Coumadin. INR 3.4 today, pharmacy to assist in dosing. (5) GAVIN (obstructive sleep apnea) Current Visit: Yes Status: Chronic Assessment and Plan: Strongly encourage BiPAP use while sleeping. (6) Hypoventilation associated with obesity syndrome Current Visit: Yes Status: Chronic Assessment and Plan: Strongly encourage BiPAP use while sleeping. Encourage weight loss. (7) DVT prophylaxis Current Visit: Yes Status: Acute Assessment and Plan: Currently anticoagulated with Coumadin. - Time Spent with Patient Total time spent is greater than 50% in coordination of care (as documented) at patient's floor/unit and/or counseling patient: Internal Medicine: Result - Labs CBC & Chem 7: 07/11/18 05:53 07/11/18 05:53 Labs: Short CBC 07/10/18 07/11/18 Range/Units 17:25 05:53 WBC 9.2 10.0 (4.3-11.1) K/mcL Hgb 9.5 L 9.2 L (12.9-16.9) g/dL Hct 34.7 L 33.4 L (37.5-50.1) % Plt Count 250 224 (140-400) K/mcL Neutrophils # 7.7 (1.6-8.9) K/mcL BMP 07/11/18 05:53 Sodium 143 Potassium 3.8 Chloride 86 L Carbon Dioxide > 45 H* BUN 27 H Creatinine 0.67 L Glucose 116 H Calcium 8.8 - ABG Interpretation ABG results: ABG ABG pH 7.40 pH Units (7.32-7.45) 07/11/18 06:17 ABG pCO2 99 mmHg (35-45) H* 07/11/18 06:17 ABG pO2 83 mmHg (85-104) L 07/11/18 06:17 ABG O2 Saturation 95 % (95-98) 07/11/18 06:17 PT/INR, D-dimer PT 38.5 Seconds (9.4-12.1) H 07/11/18 05:53 Consult Discharge Plan - Plan Referrals: NONE,PCP [Primary Care Provider] - ____ (3) CHF (congestive heart failure) Qualifiers: Heart failure type: diastolic Heart failure chronicity: acute on chronic Qualified Code(s): I50.33 - Acute on chronic diastolic (congestive) heart failure (4) Atrial fibrillation Qualifiers: Atrial fibrillation type: paroxysmal Qualified Code(s): I48.0 - Paroxysmal atrial fibrillation
[2018-07-12] MEDS: Ipratropium/Albuterol Neb 3 ML IH SCH ×3 (04:10→16:06)
[2018-07-12 06:15] LABS: Basophils % 0.2 %; Immature Granulocytes % 0.5 % (0-4)
[2018-07-12 06:17] LABS: Eosinophils # 0.1 K/mcL (0.0-0.6); Eosinophils % 0.7 %; Hematocrit 36.3 % (37.5-50.1); Hemoglobin 9.9 g/dL (12.9-16.9); Lymphocytes # 1.4 K/mcL (0.6-4.6); Lymphocytes % 13.9 %; Mean Corpuscular HGB Conc 27.3 g/dL (31.6-35.5); Mean Corpuscular Hemoglobin 24.5 pg (28.0-33.3); Mean Corpuscular Volume 89.9 fL (83.0-100.0); Monocytes # 1.1 K/mcL (0.0-1.3); Monocytes % 10.8 %; Neutrophils # 7.3 K/mcL (1.6-8.9); Platelet Count 228 K/mcL (140-400); Red Blood Count 4.04 M/mcL (4.19-5.50); Red Cell Distribution Width 14.7 % (11.5-14.5); Segmented Neutrophils % 73.9 %
[2018-07-12 06:22] LABS: INR 2.4
[2018-07-12 06:52] LABS: Anisocytosis 1+ (Not Present); Hypochromasia Present (Not Present); Platelet Estimate Normal (Normal)
[2018-07-12 07:17] LABS: BUN/Creatinine Ratio 32 (6-26); Blood Urea Nitrogen 19 mg/dL (6-20); Carbon Dioxide > 45 mEq/L (23-29); Chloride 85 mEq/L (98-107); Glucose 101 mg/dL (70-105); Magnesium 2.4 mg/dL (1.6-2.6); Osmolality,Calculated 296 (280-300); Potassium 3.7 mEq/L (3.5-5.1); Sodium 142 mEq/L (136-145); eGFR For Non-African Americans > 60 (> 60)
[2018-07-12 08:37] VITALS: BP 159/91
[2018-07-12] MEDS ORDERED: Multivit/Ca/Min/Fe/FA 1 TAB TABLET PO SCH (09:00)
[2018-07-12] MEDS: predniSONE 20 MG TABLET PO SCH (09:33)
[2018-07-12] MEDS: Furosemide 40 MG/4 ML VIAL IVP SCH (09:33)
[2018-07-12] MEDS: Benzonatate 100 MG CAPSULE PO SCH ×2 (09:34→15:28)
[2018-07-12] MEDS: *HR* Amiodarone 200 MG TABLET PO SCH (09:34)
[2018-07-12] MEDS: Fluticasone Propionate Nasal 50 MCG/SPRAY BOTTLE NS SCH (09:37)
[2018-07-12] MEDS: Budesonide/Formoterol 160/4.5 1 PUFF INH IH SCH (10:55)
--- NOTE | 2018-07-12 11:06 | Discharge Summary ---
- NOTES TO OUTPATIENT PROVIDER Notes to Outpatient Provider: Patient with oxygen dependent COPD was admitted for acute on chronic hypercarbic respiratory failure secondary to decompensated heart failure and COPD exacerbation. Complicated by poor compliance to fluid restriction, diuretics, and BiPaP therapy at home. Improved with IV diuretics, solumedrol, bronchodilators, azithromycin, and BiPaP and was even offered a possibility fof perm tracheostomy given recurrent exacerbations which he refused. He also was not in favor of mcc placement and was discharged home when he was back to his baseline O2. Orders not resulted at time of discharge: Pending orders 07/09/18 04:10 Culture,Sputum with Gram Stain [RM] Routine 07/13/18 04:00 Basic Metabolic Panel AM 0400 Complete Blood Count [HEME] AM 0400 Magnesium AM 0400 PT/INR [Prothrombin Time INR] [COAG] AM 0400 07/14/18 04:00 Basic Metabolic Panel AM 0400 Complete Blood Count [HEME] AM 0400 Magnesium AM 0400 07/15/18 04:00 Basic Metabolic Panel AM 0400 Complete Blood Count [HEME] AM 0400 Magnesium AM 0400 Date of Encounter: 07/12/18 Time of Encounter: 08:15 - Discharge Diagnosis (1) Acute exacerbation of chronic obstructive airways disease Priority: Secondary Status: Suspected (2) CHF (congestive heart failure) Priority: Secondary Status: Acute Qualifiers: Heart failure type: diastolic Heart failure chronicity: acute on chronic Qualified Code(s): I50.33 - Acute on chronic diastolic (congestive) heart failure (3) Atrial fibrillation Priority: Secondary Status: Chronic Qualifiers: Atrial fibrillation type: paroxysmal Qualified Code(s): I48.0 - Paroxysmal atrial fibrillation (4) GAVIN (obstructive sleep apnea) Priority: Secondary Status: Chronic (5) Hypoventilation associated with obesity syndrome Priority: Secondary Status: Chronic (6) Acute on chronic respiratory failure with hypercapnia Priority: Primary Status: Acute (7) DVT prophylaxis Priority: Secondary Status: Acute Hospital course: Mr. Rubalcava is a 57 year old male with oxygen dependent COPD who was admitted for acute on chronic hypercarbic respiratory failure secondary to decompensated heart failure and COPD exacerbation. Complicated by poor compliance to fluid restriction, diuretics, and BiPaP therapy at home. Improved with IV diuretics, solumedrol, bronchodilators, azithromycin, and BiPaP and was even offered a po ssibility fof perm tracheostomy given recurrent exacerbations which he refused. He also was not in favor of mcc placement and was discharged home when he was back to his baseline O2. Discharge discussed with: patient, nurse - Time Spent with Patient Total time spent providing and/or coordinating discharge services: 36 mins - Discharge Medications Prescriptions: Azithromycin [Zithromax] 250 mg PO DAILY #5 tablet predniSONE [PredniSONE] 40 mg PO DAILY #25 tablet Home Medications: Atorvastatin Calcium [Lipitor] 80 mg PO DAILY 05/04/15 [History] Multivitamin/Ferrous Sulfate [One-Daily Lvnkc-Fuj-Szar Tab] 1 tab PO DAILY 05/04/15 [History] Potassium Chloride [Klor-Con 10] 20 meq PO DAILY 05/05/16 [History] Albuterol Neb [Proventil Neb] 2.5 mg IH Q4HR PRN 14 Days vial.neb 05/07/16 [Rx] Oxygen 6 l IH AD 12/12/16 [History] Amiodarone [Cordarone] 200 mg PO DAILY 11/23/17 [History] Fluticasone Propionate Nasal [Flonase] 1 spr NS BID 11/23/17 [History] Fluticasone/Salmeterol [Advair Hfa 45-21 Mcg Inhaler] 1 puff IH BID 01/04/18 [History] Warfarin [Coumadin] 8 mg PO DAILY 01/04/18 [History] Furosemide [Lasix] 40 mg PO BID #60 tab 01/08/18 [Rx] Benzonatate [Tessalon] 100 mg PO TID PRN 07/08/18 [History] Guaifenesin [Mucinex] 600 mg PO BID 07/08/18 [History] Citalopram Hydrobromide [Citalopram HBr] 40 mg PO DAILY 07/09/18 [History] Azithromycin [Zithromax] 250 mg PO DAILY #5 tablet 07/12/18 [Rx] predniSONE [PredniSONE] 40 mg PO DAILY #25 tablet 07/12/18 [Rx] Allergies/Adverse Reactions: Allergy/AdvReac Type Severity Reaction Status Date / Time OLIVER Inhibitors AdvReac Cough Verified 07/08/18 21:36 Date of admission: 07/09/18 09:24 Primary care physician: PCP NONE Consults: 07/09/18 03:56 Consult to Cardiac Rehabilitation-Phase1 [CONS] Routine Comment: Reason for Consult: heart failure Call Completed: Yes Consult to Nurse Navigator [CONS] Routine Comment: Consult to Nurse Navigator [CONS] Routine Comment: 07/09/18 06:26 Consult to Pulmonology [CONS] Routine Consulting Provider: [facility] [place] Reason for Consult: And hypercapnic hypoxic respiratory failure Call Completed: No - Constitutional Vitals: Temp Pulse Resp BP Pulse Ox 98.2 F 81 16 159/91 93 07/12/18 08:36 07/12/18 08:36 07/12/18 08:36 07/12/18 08:36 07/12/18 08:36 General appearance: Present: A&O X 3, morbidly obese, no acute distress (Wearing BiPAP), answers questions appropriately Exam: Gen.: Alert and oriented 3. Not in acute distress. Morbid obesity Lungs: Diminished bilaterally but no rales, rhonchi, wheezes noted. No respiratory distress or accessory muscle use detected. Heart: Regular rate and rhythm, no murmurs, rubs, gallops. Abdomen: Soft, nontender, nondistended. Normoactive bowel sounds. Extremities: 2+ lower extremity pitting edema bilaterally. No clubbing or cyanosis noted. Chronic venous stasis lower extremity bilaterally. - Patient Status Disposition: Home, Self-Care Condition: Fair Overall status at discharge: patient is progressing back to baseline - Discharge Instructions Instructions: Heart Failure (DC), Chronic Obstructive Pulmonary Disease (DC), Acute Respiratory Distress Syndrome (DC), Atrial Fibrillation (DC) Follow Up With: NONE,PCP [Primary Care Provider] - Additional Instructions: PO azithromycin for 5 days PO prednisone taper for 2-3 weeks per pulmonary recommendation Reinforced the importance of compliance to diuretics, fluid restriction, and BiPAP Follow up with pulmonary 1-2 weeks. Will need outpatient PSG for titration of BiPaP settings as well - Diet and Activity Activity: resume usual activities as tolerated, wear oxygen at all times Diet: low salt diet
--- NOTE | 2018-07-12 11:16 | Physician Discharge Referral ---
Home Health/Hosp Referral Info Transfer to: Home Health - Diagnosis (1) Acute exacerbation of chronic obstructive airways disease Priority: Secondary Status: Suspected (2) CHF (congestive heart failure) Priority: Secondary Status: Acute (3) Atrial fibrillation Priority: Secondary Status: Chronic (4) GAVIN (obstructive sleep apnea) Priority: Secondary Status: Chronic (5) Hypoventilation associated with obesity syndrome Priority: Secondary Status: Chronic (6) Acute on chronic respiratory failure with hypercapnia Priority: Primary Status: Acute (7) DVT prophylaxis Priority: Secondary Status: Acute - Respiratory Orders Smoking Cessation: Smoking cessation has been advised. For more information, call the [place] Tobacco Quit Line at 4-741-CDHA-NOW. - Transfer Medications Prescriptions: Azithromycin [Zithromax] 250 mg PO DAILY #5 tablet predniSONE [PredniSONE] 40 mg PO DAILY #25 tablet Home Medications: Atorvastatin Calcium [Lipitor] 80 mg PO DAILY 05/04/15 [History] Multivitamin/Ferrous Sulfate [One-Daily Ywakm-Bvf-Vwmr Tab] 1 tab PO DAILY 05/04/15 [History] Potassium Chloride [Klor-Con 10] 20 meq PO DAILY 05/05/16 [History] Albuterol Neb [Proventil Neb] 2.5 mg IH Q4HR PRN 14 Days vial.neb 05/07/16 [Rx] Oxygen 6 l IH AD 12/12/16 [History] Amiodarone [Cordarone] 200 mg PO DAILY 11/23/17 [History] Fluticasone Propionate Nasal [Flonase] 1 spr NS BID 11/23/17 [History] Fluticasone/Salmeterol [Advair Hfa 45-21 Mcg Inhaler] 1 puff IH BID 01/04/18 [History] Warfarin [Coumadin] 8 mg PO DAILY 01/04/18 [History] Furosemide [Lasix] 40 mg PO BID #60 tab 01/08/18 [Rx] Benzonatate [Tessalon] 100 mg PO TID PRN 07/08/18 [History] Guaifenesin [Mucinex] 600 mg PO BID 07/08/18 [History] Citalopram Hydrobromide [Citalopram HBr] 40 mg PO DAILY 07/09/18 [History] Azithromycin [Zithromax] 250 mg PO DAILY #5 tablet 07/12/18 [Rx] predniSONE [PredniSONE] 40 mg PO DAILY #25 tablet 07/12/18 [Rx] Allergies/Adverse Reactions: Allergy/AdvReac Type Severity Reaction Status Date / Time OLIVER Inhibitors AdvReac Cough Verified 07/08/18 21:36 Certification: Further, I certify that my clinical findings support that this patient is homebound (i.e. absences from home require considerable and taxing effort and are for medical reasons or faith services or infrequently or short duration when for other reasons) because: Homebound Reason: Patient requires assistance of a person or device to safely leave home Attestation: My signature below is to certify that this patient is under my care and that I, or nurse practitioner, or a physician's legal assistant working with me, has a [id number] encounter with this patient.
--- NOTE | 2018-07-12 16:20 | Physician Discharge Referral ---
Home Health/Hosp Referral Info Transfer to: Home Health - Diagnosis (1) Acute exacerbation of chronic obstructive airways disease Priority: Secondary Status: Suspected (2) CHF (congestive heart failure) Priority: Secondary Status: Acute (3) Atrial fibrillation Priority: Secondary Status: Chronic (4) GAVIN (obstructive sleep apnea) Priority: Secondary Status: Chronic (5) Hypoventilation associated with obesity syndrome Priority: Secondary Status: Chronic (6) Acute on chronic respiratory failure with hypercapnia Priority: Primary Status: Acute (7) DVT prophylaxis Priority: Secondary Status: Acute - Respiratory Orders Smoking Cessation: Smoking cessation has been advised. For more information, call the [place] Tobacco Quit Line at 1-972-OGSDNOW. - Services Needed Following services are medically necessary services: Nursing, Home Health Aide, Physical Therapy, Occupational Therapy - Transfer Medications Prescriptions: Azithromycin [Zithromax] 250 mg PO DAILY #5 tablet predniSONE [PredniSONE] 40 mg PO DAILY #25 tablet Home Medications: Atorvastatin Calcium [Lipitor] 80 mg PO DAILY 05/04/15 [History] Multivitamin/Ferrous Sulfate [One-Daily Dfqtp-Oce-Rinu Tab] 1 tab PO DAILY 05/04/15 [History] Potassium Chloride [Klor-Con 10] 20 meq PO DAILY 05/05/16 [History] Albuterol Neb [Proventil Neb] 2.5 mg IH Q4HR PRN 14 Days vial.neb 05/07/16 [Rx] Oxygen 6 l IH AD 12/12/16 [History] Amiodarone [Cordarone] 200 mg PO DAILY 11/23/17 [History] Fluticasone Propionate Nasal [Flonase] 1 spr NS BID 11/23/17 [History] Fluticasone/Salmeterol [Advair Hfa 45-21 Mcg Inhaler] 1 puff IH BID 01/04/18 [History] Warfarin [Coumadin] 8 mg PO DAILY 01/04/18 [History] Furosemide [Lasix] 40 mg PO BID #60 tab 01/08/18 [Rx] Benzonatate [Tessalon] 100 mg PO TID PRN 07/08/18 [History] Guaifenesin [Mucinex] 600 mg PO BID 07/08/18 [History] Citalopram Hydrobromide [Citalopram HBr] 40 mg PO DAILY 07/09/18 [History] Azithromycin [Zithromax] 250 mg PO DAILY #5 tablet 07/12/18 [Rx] predniSONE [PredniSONE] 40 mg PO DAILY #25 tablet 07/12/18 [Rx] Allergies/Adverse Reactions: Allergy/AdvReac Type Severity Reaction Status Date / Time OLIVER Inhibitors AdvReac Cough Verified 07/08/18 21:36 Certification: Further, I certify that my clinical findings support that this patient is homebound (i.e. absences from home require considerable and taxing effort and are for medical reasons or synagogue services or infrequently or short duration when for other reasons) because: Homebound Reason: Patient requires assistance of a person or device to safely leave home Attestation: My signature below is to certify that this patient is under my care and that I, or nurse practitioner, or a physician's nurses assistant working with me, has a [id number] encounter with this patient.
[2018-07-12] MEDS ORDERED: *HR* Warfarin 4 MG TABLET PO ONE (18:00)
== END 2018-07-12 18:25 | disposition home or self-care (01) | DRG 291 ==
LOC: 2NENU → SUATTDRO 07-09 03:11
PROVIDERS: ADMIT Internal Medicine; ATTEND Internal Medicine

== ENCOUNTER 2018-11-04 13:25 | Inpatient (IN) ==
--- NOTE | 2018-11-04 16:00 | Internal Med History&Physical ---
Date of Encounter: 11/04/18 Time of Encounter: 15:51 Internal Medicine - H&P: HPI Chief complaint: SOB Admitted From: Hospital to Hospital Transfer ([facility]) History of present illness: Jesus Rubalcava is a 57 M w hx super morbid obesity, OHS/GAVIN, COPD on 5L, HFpEF, A-Fib on AC, who p/w SOB. Symptoms began a few days ago and pt says he typically is only mildly dypsneic when ambulating to bathroom, but has been getting much more SOB than usual with exertion. No SOB at rest. No CP or palpitations. No fevers. No change in chronic dry cough. The only specific thing that he endorses is that his belly and legs feel heavier than usual, and he thinks he's gaining water weight and swelling, and in fact says that's why he thinks he was transferred here for admission, to get diuresed, and that's why he has Bucio placed, too. Has had difficulties with his home BiPAP for about a week, and home RT was supposed to help fix it and return it to him next week. No confusion. In the ED, pt awake and oriented, vitals w HR 89, RR 20-24, SBP 180, satting 86% on home 5L. ABG showing pCO2 90, BNP 112, Cr 0.6, Hb 8.8. CXR with vascular congestion and cephalization. Pt given duoneb, solumedrol 125 x1, and Lasix 40 iv x1, and called for admission. Past medical, surgical, social, and family histories reviewed and updated as below. Past Med Surg Social Fam HX - Past Medical History Medical history: atrial fibrillation, cardiomyopathy, CHF, COPD, hyperlipidemia, hypertension Additional medical history: deaf right ear Psychiatric history: anxiety, depression - Past Surgical History Surgical History: pacemaker/AICD - Social History Smoking Status: Former smoker Smokeless Tobacco Status: No Alcohol use: none Drug use: none - Family History Mother Family Member Ethnicity: Non- Living Status: Still Living Hx Family Cardiac Disorders: No Hx Family Respiratory Disorders: No Hx Family Cancer: Yes (uterine) Hx Family GI Disorders: No Hx Family Endocrine Disorder: No Father Adopted: No Family Member Ethnicity: Non- Living Status: Hx Family Cancer: Yes (lung/ kidney) Hx Family GI Disorders: No Internal Medicine - H&P: Meds Atorvastatin Calcium [Lipitor] 80 mg PO DAILY 05/04/15 [History] Multivitamin/Ferrous Sulfate [One-Daily Oprau-Agg-Mlfa Tab] 1 tab PO DAILY 05/04/15 [History] Potassium Chloride [Klor-Con 10] 10 meq PO DAILY 05/05/16 [History] Oxygen 5 l IH AD 12/12/16 [History] Amiodarone [Cordarone] 200 mg PO DAILY 11/23/17 [History] Fluticasone Propionate Nasal [Flonase] 1 spr NS BID 11/23/17 [History] Fluticasone/Salmeterol [Advair Hfa 45-21 Mcg Inhaler] 1 puff IH BID 01/04/18 [History] Warfarin [Coumadin] 8 mg PO DAILY 01/04/18 [History] Furosemide [Lasix] 40 mg PO BID #60 tab 01/08/18 [Rx] Guaifenesin [Mucinex] 600 mg PO BID PRN 07/08/18 [History] Citalopram Hydrobromide [Citalopram HBr] 60 mg PO DAILY 07/09/18 [History] Ipratropium/Albuterol Sulfate [Iprat-Albut 0.5-3(2.5) mg/3 ml] 3 ml IH Q4H PRN 10/08/18 [History] 3 Allergy/AdvReac Type Severity Reaction Status Date / Time OLIVER Inhibitors AdvReac Cough Verified 11/04/18 11:25 All Systems PM: A 10-system review of systems was performed and is negative for pertinent findings except as documented above in the HPI. - Constitutional Vitals: Temp Pulse Resp BP Pulse Ox 98.5 F 103 14 135/73 90 11/04/18 15:24 11/04/18 15:24 11/04/18 15:24 11/04/18 15:24 11/04/18 15:24 Exam: General: NAD, good eye contact, chronically ill appearing, morbidly obese Head: Atraumatic, normocephalic. Face symmetric. Wearing BiPAP Eyes: EOMI, sclerae anicteric ENT: Mucous membranes moist. Trachea midline. Thoracic: Chest wall without much expansion during deep inspiration, distant lung sounds but no distinct wheezes or crackles appreciated Cardio: Normal S1 and S2, regular rate and rhythm, no murmurs. Unable to assess for JVD Abdomen: Soft, nontender, nondistended, very obese Extremities: Warm, well perfused. DP pulses 2+ b/l. No clubbing, cyanosis. Does have 1+ pitting edema b/l legs, dependent edema in thighs and lower abd wall Skin: Intact. No bruises or ulcers but does have chronic venous stasis changes b/l shins Neuro: Awake, fully oriented. Good memory, concentration, attention. Speech fluent. CN II-XII grossly intact. Strength 5/5 in b/l UE and LE - Summary of Assessment and Plan Summary of Assessment and Plan: Jesus Rubalcava is a 57 M w hx super morbid obesity, OHS/GAVIN, COPD on 5L, HFpEF, A-Fib on AC, who p/w SOB, abd and leg swelling, elevated BNP, and wet CXR, concerning for CHF exacerbation. Acute on chronic HFpEF: body wall and pedal edema, BNP 100s when usually ~50, and CXR w congestion, needs diuresis. - Lasix 40 iv x1 this evening s/p 40 iv x1 in OSH ED (home dose is 40 po bid) - strict I&O, fluid restrict, daily standing weight - compression hose if able to fit - bipap prn respiratory distress Acute on chronic hypoxic and hypercapneic respiratory failure: requiring 6L O2 to maintain sats >86% over home 5L, and pCO2 is 90 although this is one of the lowest on record for this patient - supplemental O2 and BiPAP prn, wean as able - diurese as above - walk test prior to discharge Chronic Normocytic Anemia: baseline ~9-10, was 8.8 on admission. Maintain Hb >7 OHS/GAVIN: Bipap qhs COPD: not in acute exacerbation, continue home advair, and duonebs prn A-Fib: AC on warfarin, rate on nothing, rhythm on amiodarone 200 CAD: home lipitor 80 Depression: home celexa 40 daily Super morbid obesity: BMI 63 PPx: lovenox FEN: cardiac ADA 1.5L, no MIVF Lines: DEISY, Fortunato Consults: Code: Full Dispo: patient requires inpatient eval and management at this time. Anticipate 2-3 days. Will be homegoing w HH
[2018-11-04] MEDS ORDERED: Ondansetron 4 MG/2 ML VIAL IVP PRN (16:24)
[2018-11-04] MEDS ORDERED: Acetaminophen 325 MG TABLET PO PRN (16:24)
[2018-11-04 17:08] LABS: VBG HCO3 53 mEq/L (21-27); VBG PCO2 101 mmHg (41-51); VBG PH 7.33 pH Units (7.32-7.42); VBG PO2 192 mmHg (25-50)
[2018-11-04] MEDS: Budesonide/Formoterol 80/4.5 MDI IH SCH (19:33)
[2018-11-05 04:11] LABS: Hemoglobin 9.5 g/dL (12.9-16.9); Red Cell Distribution Width 16.4 % (11.5-14.5)
[2018-11-05 04:12] LABS: Hematocrit 35.9 % (37.5-50.1); Mean Corpuscular HGB Conc 26.5 g/dL (31.6-35.5); Mean Corpuscular Hemoglobin 24.4 pg (28.0-33.3); Mean Corpuscular Volume 92.1 fL (83.0-100.0); Mean Platelet Volume 9.7 fL (9.4-12.4); Platelet Count 206 K/mcL (140-400)
[2018-11-05 04:21] LABS: VBG HCO3 56 mEq/L (21-27); VBG PCO2 101 mmHg (41-51); VBG PH 7.35 pH Units (7.32-7.42); VBG PO2 163 mmHg (25-50)
[2018-11-05 04:35] LABS: BUN/Creatinine Ratio 30 (6-26); Blood Urea Nitrogen 18 mg/dL (6-20); Calcium 9.1 mg/dL (8.6-10.3); Carbon Dioxide > 45 mEq/L (23-29); Chloride 89 mEq/L (98-107); Glucose 141 mg/dL (70-105); Magnesium 2.4 mg/dL (1.6-2.6); Osmolality,Calculated 300 (280-300); Potassium 4.6 mEq/L (3.5-5.1); Sodium 143 mEq/L (136-145); eGFR For Non-African Americans > 60 (> 60)
[2018-11-05 06:22] LABS: INR 3.1; Prothrombin Time 34.8 Seconds (9.4-12.1)
[2018-11-05] MEDS: Furosemide 40 MG/4 ML VIAL IVP SCH ×2 (09:34→18:13)
[2018-11-05] MEDS: *HR* Amiodarone 200 MG TABLET PO SCH (09:39)
[2018-11-05] MEDS: Budesonide/Formoterol 80/4.5 MDI IH SCH ×2 (10:45→20:14)
[2018-11-05] MEDS ORDERED: Furosemide 40 MG/4 ML VIAL IVP ONE (12:00)
--- NOTE | 2018-11-05 16:22 | Internal Med Progress Note ---
Hospitalist Progress Note - Encounter Date of Encounter: 11/05/18 Time of Encounter: 16:18 - Subjective Interval History: Pt this AM is a bit sleepier/groggier than he was on admission yesterday. Is compliant overnight with bipap. Denies SOB. Says he'd like to sleep some more, but that the bipap mask is not well fitting and pushing on his left eye. No N/V or abd pain. - Exam Vitals: Temp Pulse Resp BP Pulse Ox 98.6 F 83 22 145/90 98 11/05/18 07:24 11/05/18 15:53 11/05/18 15:53 11/05/18 15:53 11/05/18 15:53 Exam: General: NAD, good eye contact, chronically ill appearing, morbidly obese, wearing BiPAP Thoracic: Chest wall without much expansion during deep inspiration, distant lung sounds but no distinct wheezes or crackles Cardio: Normal S1 and S2, regular rate and rhythm, no murmurs. Unable to assess for JVD due to habitus Abdomen: Soft, nontender, nondistended, very obese Extremities: Warm, well perfused. DP pulses 2+ b/l. Does have 1+ pitting edema b/l legs, dependent edema in thighs still, and edema in lower abd wall Skin: Intact. No bruises or ulcers but does have chronic venous stasis changes b/l shins Neuro: Sleeping, awakens to voice, fully oriented but inattentive and somnolent. Speech fluent. - Summary of Assessment and Plan Summary of Assessment and Plan: Jesus Rubalcava is a 57 M w hx super morbid obesity, OHS/GAVIN, COPD on 5L, HFpEF, A-Fib on AC, who p/w SOB, abd and leg swelling, elevated BNP, and wet CXR, concerning for CHF exacerbation. Acute on chronic HFpEF: body wall and pedal edema, BNP 100s when usually ~50, and CXR w congestion, needs diuresis. Overnight, decent UOP, Cr & BP stable - Lasix 40 tid today - strict I&O, fluid restrict, daily standing weight - compression hose if able to fit - bipap prn respiratory distress Acute on chronic hypercapneic respiratory failure: pCO2 is 100 and unclear is acute or chronic for this pt as he is a bit groggier this AM than yesterday, and when I examined him this AM he was sleeping w bipap mask not entirely covering his mouth - supplemental O2 and BiPAP qhs&prn - diurese as above - daily vbg's - respiratory to troubleshoot bipap fitting/mask Chronic Normocytic Anemia: baseline ~9-10, was 8.8 on admission, stable. Maint ain Hb >7 OHS/GAVIN: Bipap qhs COPD: not in acute exacerbation, continue home advair, and duonebs prn A-Fib: AC on warfarin, rate on nothing, rhythm on amiodarone 200 CAD: home lipitor 80 Depression: home celexa 40 daily Super morbid obesity: BMI 63 PPx: lovenox FEN: cardiac ADA 1.5L, no MIVF Lines: Fortunato OLIVAS Consults: Code: Full Dispo: patient requires inpatient eval and management at this time. Anticipate 2-3 days. Will be homegoing w Internal Medicine: Result - Labs CBC & Chem 7: 11/05/18 03:53 11/05/18 03:53 Labs: Short CBC 11/05/18 Range/Units 03:53 WBC 7.5 (4.3-11.1) K/mcL Hgb 9.5 L (12.9-16.9) g/dL Hct 35.9 L (37.5-50.1) % Plt Count 206 (140-400) K/mcL BMP 11/05/18 03:53 Sodium 143 Potassium 4.6 D Chloride 89 L Carbon Dioxide > 45 H* BUN 18 Creatinine 0.60 L Glucose 141 H Calcium 9.1 - ABG Interpretation ABG results: PT/INR, D-dimer PT 34.8 Seconds (9.4-12.1) H 11/05/18 05:46 Consult Discharge Plan - Plan Referrals: Jay Cool MD [Primary Care Provider] -
[2018-11-05] MEDS ORDERED: Warfarin perPT PO PRN (18:00)
[2018-11-05] MEDS ORDERED: *HR* Warfarin 4 MG TABLET PO ONE (19:15)
[2018-11-06] MEDS: Budesonide/Formoterol 80/4.5 MDI IH SCH ×2 (07:44→21:57)
[2018-11-06 08:25] LABS: Red Cell Distribution Width 16.4 % (11.5-14.5)
[2018-11-06 08:27] LABS: Hematocrit 34.2 % (37.5-50.1); Hemoglobin 8.8 g/dL (12.9-16.9); Mean Corpuscular HGB Conc 25.7 g/dL (31.6-35.5); Mean Corpuscular Hemoglobin 23.9 pg (28.0-33.3); Mean Corpuscular Volume 92.9 fL (83.0-100.0); Mean Platelet Volume 9.4 fL (9.4-12.4); Platelet Count 189 K/mcL (140-400); Red Blood Count 3.68 M/mcL (4.19-5.50)
[2018-11-06 08:31] LABS: VBG HCO3 57 mEq/L (21-27); VBG PCO2 101 mmHg (41-51); VBG PH 7.36 pH Units (7.32-7.42); VBG PO2 126 mmHg (25-50)
[2018-11-06 08:32] LABS: INR 2.5; Prothrombin Time 28.7 Seconds (9.4-12.1)
[2018-11-06 09:58] LABS: BUN/Creatinine Ratio 40 (6-26); Blood Urea Nitrogen 23 mg/dL (6-20); Calcium 8.6 mg/dL (8.6-10.3); Chloride 86 mEq/L (98-107); Glucose 93 mg/dL (70-105); Magnesium 2.2 mg/dL (1.6-2.6); Osmolality,Calculated 301 (280-300); Potassium 4.2 mEq/L (3.5-5.1); Sodium 144 mEq/L (136-145); eGFR For Non-African Americans > 60 (> 60)
[2018-11-06] MEDS: Furosemide 40 MG/4 ML VIAL IVP SCH ×2 (10:45→16:35)
[2018-11-06] MEDS: *HR* Amiodarone 200 MG TABLET PO SCH (10:45)
[2018-11-06 11:29] LABS: Carbon Dioxide > 45 mEq/L (23-29)
[2018-11-06] MEDS: Ipratropium/Albuterol Neb 3 ML IH PRN (12:06)
--- NOTE | 2018-11-06 16:47 | Internal Med Progress Note ---
Hospitalist Progress Note - Encounter Date of Encounter: 11/06/18 Time of Encounter: 16:45 - Subjective Interval History: Pt more awake today, answers questions, still says his abd is swollen compared to usual. Unsure how he'll pee when xiong comes out but says he doesn't have xiong usually. No fevers, SOB, N/V. - Exam Vitals: Temp Pulse Resp BP Pulse Ox 97.8 F 82 16 119/81 88 11/06/18 05:05 11/06/18 11:57 11/06/18 12:06 11/06/18 11:57 11/06/18 12:06 Exam: General: NAD, good eye contact, chronically ill appearing, morbidly obese, wearing BiPAP Thoracic: Chest wall without much expansion during deep inspiration, distant lung sounds but no distinct wheezes or crackles Cardio: Normal S1 and S2, regular rate and rhythm, no murmurs. Unable to assess for JVD due to habitus Abdomen: Soft, nontender, nondistended, very obese Extremities: Warm, well perfused. DP pulses 2+ b/l. Does have 1+ pitting edema b/l legs, dependent edema in thighs still, and decreased but still present edema in lower abd wall Skin: Intact. No bruises or ulcers but does have chronic venous stasis changes b/l shins Neuro: awake, fully oriented, speech fluent. - Summary of Assessment and Plan Summary of Assessment and Plan: Jesus Rubalcava is a 57 M w hx super morbid obesity, OHS/GAVIN, COPD on 5L, HFpEF, A-Fib on AC, who p/w SOB, abd and leg swelling, elevated BNP, and wet CXR, concerning for CHF exacerbation. Acute on chronic HFpEF: body wall and pedal edema, BNP 100s when usually ~50, and CXR w congestion, needs diuresis. Overnight, decent UOP, Cr & BP stable - Lasix 40 bid today - strict I&O, fluid restrict, daily standing weight - compression hose if able to fit - bipap prn respiratory distress Acute on chronic hypercapneic respiratory failure: pCO2 is still 100 but pt tolerating it well today - supplemental O2 and BiPAP qhs&prn - diurese as above - daily vbg's - respiratory to troubleshoot bipap fitting/mask Chronic Normocytic Anemia: baseline ~9-10, was 8.8 on admission, stable. Maintain Hb >7 OHS/GAVIN: Bipap qhs COPD: not in acute exacerbation, continue home advair, and duonebs prn A-Fib: AC on warfarin, rate on nothing, rhythm on amiodarone 200 CAD: home lipitor 80 Depression: home celexa 40 daily Super morbid obesity: BMI 63 PPx: lovenox FEN: cardiac ADA 1.5L, no MIVF Lines: PIV, remove Xiong Consults: Code: Full Dispo: downgrade per insurance to obs, anticipate 2-3 days for ongoing diuresis. Will be homegoing w Internal Medicine: Result - Labs CBC & Chem 7: 11/06/18 07:58 11/06/18 07:58 Labs: Short CBC 11/06/18 Range/Units 07:58 WBC 8.7 (4.3-11.1) K/mcL Hgb 8.8 L (12.9-16.9) g/dL Hct 34.2 L (37.5-50.1) % Plt Count 189 (140-400) K/mcL BMP 11/06/18 07:58 Sodium 144 Potassium 4.2 Chloride 86 L Carbon Dioxide > 45 H* BUN 23 H Creatinine 0.57 L Glucose 93 Calcium 8.6 - ABG Interpretation ABG results: PT/INR, D-dimer PT 28.7 Seconds (9.4-12.1) H 11/06/18 07:58 Consult Discharge Plan - Plan Referrals: Jay Cool MD [Primary Care Provider] -
[2018-11-06] MEDS ORDERED: *HR* Warfarin 4 MG TABLET PO ONE (18:00)
[2018-11-07 05:55] LABS: Hematocrit 33.4 % (37.5-50.1)
[2018-11-07 05:56] LABS: Hemoglobin 8.9 g/dL (12.9-16.9); Mean Corpuscular HGB Conc 26.6 g/dL (31.6-35.5); Mean Corpuscular Hemoglobin 24.1 pg (28.0-33.3); Mean Corpuscular Volume 90.3 fL (83.0-100.0); Mean Platelet Volume 9.4 fL (9.4-12.4); Platelet Count 181 K/mcL (140-400); Red Cell Distribution Width 16.2 % (11.5-14.5)
[2018-11-07 06:02] LABS: INR 2.3; Prothrombin Time 26.1 Seconds (9.4-12.1)
[2018-11-07 06:16] LABS: BUN/Creatinine Ratio 35 (6-26); Blood Urea Nitrogen 22 mg/dL (6-20); Calcium 9.1 mg/dL (8.6-10.3); Carbon Dioxide > 45 mEq/L (23-29); Chloride 85 mEq/L (98-107); Glucose 92 mg/dL (70-105); Magnesium 2.2 mg/dL (1.6-2.6); Osmolality,Calculated 299 (280-300); Potassium 4.2 mEq/L (3.5-5.1); Sodium 143 mEq/L (136-145); eGFR For Non-African Americans > 60 (> 60)
[2018-11-07 06:42] LABS: VBG HCO3 57 mEq/L (21-27); VBG PCO2 88 mmHg (41-51); VBG PH 7.42 pH Units (7.32-7.42); VBG PO2 191 mmHg (25-50)
[2018-11-07] MEDS: *HR* Amiodarone 200 MG TABLET PO SCH (08:35)
[2018-11-07] MEDS: Furosemide 40 MG/4 ML VIAL IVP SCH ×2 (08:35→17:15)
[2018-11-07] MEDS: Budesonide/Formoterol 80/4.5 MDI IH SCH ×2 (10:55→22:00)
[2018-11-07] MEDS: Ipratropium/Albuterol Neb 3 ML IH PRN (10:56)
--- NOTE | 2018-11-07 17:43 | Internal Med Progress Note ---
Hospitalist Progress Note - Encounter Date of Encounter: 11/07/18 Time of Encounter: 11:00 - Subjective Interval History: Patient is a 57-year-old male past medical history significant for morbid obesity with a BMI of 44.3, OHS/GAVIN, COPD on 6L, HFpEF, A-Fib on AC, who presented with shortness of breath and abdominal/lower extremity edema on to have elevated BNP with Proter congestion on chest x-ray concerning for CHF e xacerbation. Patient currently back on baseline O2 requirements still with lower extremity edema with IV diuresis - Exam Vitals: Temp Pulse Resp BP Pulse Ox 98.2 F 84 16 157/79 98 11/07/18 15:47 11/07/18 15:47 11/07/18 15:47 11/07/18 15:47 11/07/18 15:47 Exam: Gen.: Nonacute distress, alert and oriented 3 ENT: Mucosal membranes moist Respiratory: Lungs are clear to auscultation bilaterally without any wheezing rhonchi or rales Cardiovascular: Normal S1 and S2 regular rate rhythm no murmurs rubs or gallops Abdomen: Soft, nontender and nondistended with positive bowel sounds Extremities: Bilateral lower extremity edema Skin: Normal color - Assessment and Plan (1) Acute on chronic systolic (congestive) heart failure Current Visit: No Status: Acute Assessment and Plan: Patient with improved respiratory status as below but still with bilateral lower extremity edema Will continue IV diuresis (2) Acute on chronic respiratory failure with hypoxia and hypercapnia Current Visit: No Status: Acute Assessment and Plan: Patient now on baseline O2 requirements with IV diuresis for heart failure exacerbation as above Will continue to monitor (3) Anemia Current Visit: No Status: Acute Assessment and Plan: Patient with chronic anemia which is stable Continue to monitor (4) COPD (chronic obstructive pulmonary disease) Current Visit: No Status: Chronic Assessment and Plan: Continue dual nebs as needed (5) Hyperlipidemia Current Visit: No Status: Chronic Assessment and Plan: Continue statin (6) Hypertension Current Visit: No Status: Chronic Assessment and Plan: Continue home medications (7) Obesity hypoventilation syndrome Current Visit: No Status: Chronic Assessment and Plan: BiPAP daily at bedtime (8) PAF (paroxysmal atrial fibrillation) Current Visit: No Status: Chronic Assessment and Plan: Will continue oral Tequin placement with Coumadin and home dose of amiodarone DVT Prophylaxis: On Coumadin as above - Time Spent with Patient Total time spent is greater than 50% in coordination of care (as documented) at patient's floor/unit and/or counseling patient: Internal Medicine: Result - Labs CBC & Chem 7: 11/07/18 04:33 11/07/18 04:33 Labs: Short CBC 11/07/18 Range/Units 04:33 WBC 7.5 (4.3-11.1) K/mcL Hgb 8.9 L (12.9-16.9) g/dL Hct 33.4 L (37.5-50.1) % Plt Count 181 (140-400) K/mcL BMP 11/07/18 04:33 Sodium 143 Potassium 4.2 Chloride 85 L Carbon Dioxide > 45 H* BUN 22 H Creatinine 0.62 L Glucose 92 Calcium 9.1 - ABG Interpretation ABG results: PT/INR, D-dimer PT 26.1 Seconds (9.4-12.1) H 11/07/18 04:33 Consult Discharge Plan - Plan Referrals: Jay Cool MD [Primary Care Provider] - (3) Anemia Qualifiers: Anemia type: unspecified type Qualified Code(s): D64.9 - Anemia, unspecified (4) COPD (chronic obstructive pulmonary disease) Qualifiers: COPD type: emphysema Emphysema type: centrilobular Qualified Code(s): J43.2 - Centrilobular emphysema (5) Hyperlipidemia Qualifiers: Qualified Code(s): E78.5 - Hyperlipidemia, unspecified (6) Hypertension Qualifiers: Hypertension type: essential hypertension Qualified Code(s): I10 - Essential (primary) hypertension
[2018-11-07] MEDS ORDERED: *HR* Warfarin 4 MG TABLET PO ONE (18:00)
[2018-11-08 04:37] LABS: Hematocrit 32.3 % (37.5-50.1); Hemoglobin 8.9 g/dL (12.9-16.9); Mean Corpuscular HGB Conc 27.6 g/dL (31.6-35.5); Mean Corpuscular Hemoglobin 24.5 pg (28.0-33.3); Mean Corpuscular Volume 88.7 fL (83.0-100.0); Mean Platelet Volume 9.3 fL (9.4-12.4); Platelet Count 176 K/mcL (140-400); Red Blood Count 3.64 M/mcL (4.19-5.50); Red Cell Distribution Width 15.9 % (11.5-14.5)
[2018-11-08 04:45] LABS: VBG HCO3 58 mEq/L (21-27); VBG PCO2 84 mmHg (41-51); VBG PH 7.45 pH Units (7.32-7.42); VBG PO2 190 mmHg (25-50)
[2018-11-08 04:46] LABS: INR 2.5; Prothrombin Time 28.1 Seconds (9.4-12.1)
[2018-11-08 05:02] LABS: BUN/Creatinine Ratio 36 (6-26); Blood Urea Nitrogen 17 mg/dL (6-20); Calcium 8.7 mg/dL (8.6-10.3); Carbon Dioxide > 45 mEq/L (23-29); Chloride 89 mEq/L (98-107); Glucose 99 mg/dL (70-105); Magnesium 2.2 mg/dL (1.6-2.6); Osmolality,Calculated 300 (280-300); Potassium 4.1 mEq/L (3.5-5.1); Sodium 144 mEq/L (136-145); eGFR For Non-African Americans > 60 (> 60)
[2018-11-08] MEDS: *HR* Amiodarone 200 MG TABLET PO SCH (09:03)
[2018-11-08] MEDS: Furosemide 40 MG/4 ML VIAL IVP SCH ×2 (09:04→17:44)
[2018-11-08] MEDS: Budesonide/Formoterol 80/4.5 MDI IH SCH ×2 (09:30→21:50)
[2018-11-08] MEDS: Ipratropium/Albuterol Neb 3 ML IH PRN ×2 (09:30→21:50)
--- NOTE | 2018-11-08 11:28 | Internal Med Progress Note ---
Hospitalist Progress Note - Encounter Date of Encounter: 11/08/18 Time of Encounter: 11:00 - Subjective Interval History: Patient is a 57-year-old male past medical history significant for morbid obesity with a BMI of 44.3, OHS/GAVIN, COPD on 6L, HFpEF, A-Fib on AC, who presented with shortness of breath and abdominal/lower extremity edema on to have elevated BNP with vascular congestion on chest x-ray concerning for CHF exacerbation. Patient currently back on baseline O2 requirements but still with lower extremity edema despite IV diuresis - Exam Vitals: Temp Pulse Resp BP Pulse Ox 98.2 F 81 16 128/69 93 11/08/18 11:15 11/08/18 11:15 11/08/18 11:15 11/08/18 11:15 11/08/18 11:15 Exam: Gen.: Nonacute distress, alert and oriented 3 ENT: Mucosal membranes moist Respiratory: Lungs are clear to auscultation bilaterally without any wheezing rhonchi or rales Cardiovascular: Normal S1 and S2 regular rate rhythm no murmurs rubs or gallops Abdomen: Soft, nontender and nondistended with positive bowel sounds Extremities: Bilateral lower extremity swelling pitting edema up to mid tibia Skin: Normal color - Assessment and Plan (1) Acute on chronic systolic (congestive) heart failure Current Visit: No Status: Acute Assessment and Plan: Patient with improved respiratory status as below but still with bilateral lower extremity edema Will continue IV diuresis (2) Acute on chronic respiratory failure with hypoxia and hypercapnia Current Visit: No Status: Acute Assessment and Plan: Patient now on baseline O2 requirements with IV diuresis for heart failure exacerbation as above Will continue to monitor (3) Anemia Current Visit: No Status: Acute Assessment and Plan: Patient with chronic anemia which is stable Continue to monitor (4) COPD (chronic obstructive pulmonary disease) Current Visit: No Status: Chronic Assessment and Plan: Not in exacerbation Continue dual nebs as needed (5) Hyperlipidemia Current Visit: No Status: Chronic Assessment and Plan: Continue statin (6) Hypertension Current Visit: No Status: Chronic Assessment and Plan: Continue home medications (7) Obesity hypoventilation syndrome Current Visit: No Status: Chronic Assessment and Plan: BiPAP daily at bedtime (8) PAF (paroxysmal atrial fibrillation) Current Visit: No Status: Chronic Assessment and Plan: Will continue oral Tequin placement with Coumadin and home dose of amiodarone DVT Prophylaxis: On Coumadin as above - Time Spent with Patient Total time spent is greater than 50% in coordination of care (as documented) at patient's floor/unit and/or counseling patient: Internal Medicine: Result - Labs CBC & Chem 7: 11/08/18 04:20 11/08/18 04:20 Labs: Short CBC 11/08/18 Range/Units 04:20 WBC 8.1 (4.3-11.1) K/mcL Hgb 8.9 L (12.9-16.9) g/dL Hct 32.3 L (37.5-50.1) % Plt Count 176 (140-400) K/mcL BMP 11/08/18 04:20 Sodium 144 Potassium 4.1 Chloride 89 L Carbon Dioxide > 45 H* BUN 17 Creatinine 0.47 L Glucose 99 Calcium 8.7 - ABG Interpretation ABG results: PT/INR, D-dimer PT 28.1 Seconds (9.4-12.1) H 11/08/18 04:20 Consult Discharge Plan - Plan Referrals: Jay Cool MD [Primary Care Provider] - (3) Anemia Qualifiers: Anemia type: unspecified type Qualified Code(s): D64.9 - Anemia, unspecified (4) COPD (chronic obstructive pulmonary disease) Qualifiers: COPD type: emphysema Emphysema type: centrilobular Qualified Code(s): J43.2 - Centrilobular emphysema (5) Hyperlipidemia Qualifiers: Qualified Code(s): E78.5 - Hyperlipidemia, unspecified (6) Hypertension Qualifiers: Hypertension type: essential hypertension Qualified Code(s): I10 - Essential (primary) hypertension
[2018-11-08] MEDS ORDERED: *HR* Warfarin 4 MG TABLET PO ONE (18:00)
[2018-11-09 04:09] LABS: VBG HCO3 57 mEq/L (21-27); VBG PCO2 114 mmHg (41-51); VBG PH 7.31 pH Units (7.32-7.42); VBG PO2 60 mmHg (25-50)
[2018-11-09 04:10] LABS: Hematocrit 32.3 % (37.5-50.1); Hemoglobin 8.7 g/dL (12.9-16.9); Mean Corpuscular HGB Conc 26.9 g/dL (31.6-35.5); Mean Corpuscular Hemoglobin 24.6 pg (28.0-33.3); Mean Corpuscular Volume 91.2 fL (83.0-100.0); Mean Platelet Volume 8.9 fL (9.4-12.4); Platelet Count 171 K/mcL (140-400); Red Blood Count 3.54 M/mcL (4.19-5.50)
[2018-11-09 04:24] LABS: INR 2.8; Prothrombin Time 31.1 Seconds (9.4-12.1)
[2018-11-09 04:46] LABS: BUN/Creatinine Ratio 32 (6-26); Blood Urea Nitrogen 18 mg/dL (6-20); Calcium 8.7 mg/dL (8.6-10.3); Carbon Dioxide > 45 mEq/L (23-29); Chloride 90 mEq/L (98-107); Glucose 102 mg/dL (70-105); Magnesium 2.1 mg/dL (1.6-2.6); Osmolality,Calculated 300 (280-300); Potassium 4.2 mEq/L (3.5-5.1); Sodium 144 mEq/L (136-145); eGFR For Non-African Americans > 60 (> 60)
[2018-11-09] MEDS: Budesonide/Formoterol 80/4.5 MDI IH SCH ×2 (07:33→22:21)
[2018-11-09] MEDS: Furosemide 40 MG/4 ML VIAL IVP SCH ×2 (08:03→19:05)
[2018-11-09] MEDS: *HR* Amiodarone 200 MG TABLET PO SCH (08:03)
[2018-11-09 15:01] LABS: VBG HCO3 56 mEq/L (21-27); VBG PCO2 98 mmHg (41-51); VBG PH 7.37 pH Units (7.32-7.42); VBG PO2 181 mmHg (25-50)
--- NOTE | 2018-11-09 15:58 | Discharge Summary ---
Orders not resulted at time of discharge: Pending orders 11/10/18 04:00 INR/PT [Prothrombin Time INR] [COAG] AM 04011/11/18 04:00 INR/PT [Prothrombin Time INR] [COAG] AM 04011/12/18 04:00 INR/PT [Prothrombin Time INR] [COAG] AM 040 Date of Encounter: 11/09/18 Time of Encounter: 11:00 - Discharge Diagnosis (1) Acute on chronic systolic (congestive) heart failure Priority: Primary Status: Acute (2) Acute on chronic respiratory failure with hypoxia and hypercapnia Priority: Primary Status: Acute (3) Anemia Priority: Secondary Status: Acute Qualifiers: Anemia type: unspecified type Qualified Code(s): D64.9 - Anemia, unspecified (4) COPD (chronic obstructive pulmonary disease) Priority: Secondary Status: Chronic Qualifiers: COPD type: emphysema Emphysema type: centrilobular Qualified Code(s): J43.2 - Centrilobular emphysema (5) Hyperlipidemia Priority: Secondary Status: Chronic Qualifiers: Qualified Code(s): E78.5 - Hyperlipidemia, unspecified (6) Hypertension Priority: Secondary Status: Chronic Qualifiers: Hypertension type: essential hypertension Qualified Code(s): I10 - Essential (primary) hypertension (7) Obesity hypoventilation syndrome Priority: Secondary Status: Chronic (8) PAF (paroxysmal atrial fibrillation) Priority: Secondary Status: Chronic Hospital course: Patient is a 57-year-old male past medical history significant for morbid obesity with a BMI of 44.3, OHS/GAVIN, COPD on 6L, HFpEF, A-Fib on AC, who presented with shortness of breath and abdominal/lower extremity edema found to have elevated BNP with vascular congestion on chest x-ray concerning for CHF exacerbation. Patient reports of having difficulties with his BiPAP as he states that has not been working for the last 2 weeks; patient states that it has not been fixed. As a result patient had had several days of mild dyspnea on exertion which gradually got worse. She also reported of worsening lower extremity edema decided come to the hospital for further evaluation and management. During patients hospital stay he was treated for acute on chronic heart failure with preserved ejection fraction with IV diuresis. Patient was also managed on BiPAP for acute on chronic hypoxic/hypercapnic respiratory failure. Patient is a chronic CO2 retainer which was elevated above normal secondary to volume contraction alkalosis due to IV diuresis for heart failure above. Patient with normal mentation and in no respiratory distress therefore be discharged to follow up with primary care provider. - Time Spent with Patient Total time spent providing and/or coordinating discharge services: - Discharge Medications Prescriptions: Continued Multivitamin/Ferrous Sulfate [One-Daily Uqcqu-Bxt-Yiin Tab] 1 tab PO DAILY Atorvastatin Calcium [Lipitor] 80 mg PO DAILY Potassium Chloride [Klor-Con 10] 10 meq PO BID Oxygen 5 l IH AD Amiodarone [Cordarone] 200 mg PO DAILY Fluticasone Propionate Nasal [Flonase] 1 spr NS BID Fluticasone/Salmeterol [Advair Hfa 45-21 Mcg Inhaler] 1 puff IH BID Warfarin [Coumadin] 8 mg PO 1800 Citalopram Hydrobromide [Citalopram HBr] 60 mg PO DAILY Ipratropium/Albuterol Sulfate [Iprat-Albut 0.5-3(2.5) mg/3 ml] 3 ml IH Q4H PRN PRN Reason: Shortness Of Breath Furosemide [Lasix] 40 mg PO BID Guaifenesin [Mucinex] 600 mg PO BID PRN PRN Reason: Congestion Home Medications: Atorvastatin Calcium [Lipitor] 80 mg PO DAILY 05/04/15 [History] Multivitamin/Ferrous Sulfate [One-Daily Buuoc-Rfw-Sdtu Tab] 1 tab PO DAILY 05/04/15 [History] Potassium Chloride [Klor-Con 10] 10 meq PO BID 05/05/16 [History] Oxygen 5 l IH AD 12/12/16 [History] Amiodarone [Cordarone] 200 mg PO DAILY 11/23/17 [History] Fluticasone Propionate Nasal [Flonase] 1 spr NS BID 11/23/17 [History] Fluticasone/Salmeterol [Advair Hfa 45-21 Mcg Inhaler] 1 puff IH BID 01/04/18 [History] Warfarin [Coumadin] 8 mg PO 1800 01/04/18 [History] Guaifenesin [Mucinex] 600 mg PO BID PRN 07/08/18 [History] Citalopram Hydrobromide [Citalopram HBr] 60 mg PO DAILY 07/09/18 [History] Ipratropium/Albuterol Sulfate [Iprat-Albut 0.5-3(2.5) mg/3 ml] 3 ml IH Q4H PRN 10/08/18 [History] Furosemide [Lasix] 40 mg PO BID 11/05/18 [History] Allergies/Adverse Reactions: Allergy/AdvReac Type Severity Reaction Status Date / Time OLIVER Inhibitors AdvReac Cough Verified 11/04/18 11:25 Date of admission: 11/04/18 15:07 Primary care physician: Jay Cool MD Consults: 11/04/18 16:01 Consult to Repair Service Clerk [CONS] Routine Reason for SW Consult: Patient would like information regarding home health 11/08/18 10:22 Consult to Invasive Line Access Team [CONS] Routine Reason for Consult: no iv access Line Type: EPIV 11/08/18 13:30 Consult to Occupational Therapy [CONS] Routine Comment: Evaluate, develop and implement POC Reason for Consult: Patient weak, x2 assists Does patient have active BEDREST order?: No Is patient medically & hemodynamically stable?: Yes PT [Consult to Physical Therapy] [CONS] Routine Comment: Evaluate, develop and implement POC Reason for Consult: weakness, x2 times assist Does patient have active BEDREST order?: No Is patient medically & hemodynamically stable?: Yes - Constitutional Vitals: Temp Pulse Resp BP Pulse Ox 98.9 F 82 20 150/85 97 11/09/18 07:02 11/09/18 07:02 11/09/18 07:32 11/09/18 07:02 11/09/18 07:32 Exam: Gen.: Nonacute distress, alert and oriented 3 ENT: Mucosal membranes moist Respiratory: Lungs are clear to auscultation bilaterally without any wheezing rhonchi or rales Cardiovascular: Normal S1 and S2 regular rate rhythm no murmurs rubs or gallops Abdomen: Soft, nontender and nondistended with positive bowel sounds Extremities: Bilateral lower extremity swelling pitting edema up to mid tibia Skin: Normal color - Patient Status Disposition: Home, Self-Care - Discharge Instructions Follow Up With: Jay Cool MD [Primary Care Provider] - (phone has changed [phone] [facility] patient preferes to call and make the appointment. )
[2018-11-09] MEDS ORDERED: *HR* Warfarin 4 MG TABLET PO ONE (18:00)
[2018-11-09] MEDS: Ipratropium/Albuterol Neb 3 ML IH PRN (22:24)
[2018-11-10 05:50] LABS: INR 2.6; Prothrombin Time 29.4 Seconds (9.4-12.1)
[2018-11-10 07:14] VITALS: BP 137/84
[2018-11-10] MEDS: Budesonide/Formoterol 80/4.5 MDI IH SCH (07:31)
[2018-11-10] MEDS: Furosemide 40 MG/4 ML VIAL IVP SCH (08:48)
[2018-11-10] MEDS: *HR* Amiodarone 200 MG TABLET PO SCH (08:48)
--- NOTE | 2018-11-10 15:28 | Event Note ---
Date of Encounter: 11/10/18 Time of Encounter: 11:00 Patient was medically discharged on 11/09/18 but was not discharged due to staffing issues. He was discharged today
== END 2018-11-10 12:30 | disposition home or self-care (01) | DRG 291 ==
LOC: INTOOBSV 15:07 → 2NENU 15:07 → SUATTDRO 15:07
PROVIDERS: ADMIT Internal Medicine; ATTEND Hospitalist

== ENCOUNTER 2018-12-14 13:54 | Inpatient (IN) ==
[~2018-12-14 13:54] MED LIST: *HR* Etomidate 20 MG/10 ML AMPUL IVP ONE; *HR* Succinylcholine 200 MG/10 ML VIAL IVP ONE
[2018-12-14 18:09] LABS: ABG PCO2 > 150 mmHg (35-45); ABG PH 7.07 pH Units (7.32-7.45); ABG PO2 83 mmHg (85-104); Blood Gas VT 550 cc
[2018-12-14] MEDS ORDERED: Naloxone 0.4 MG/ML INJ IVP PRN (18:10)
[2018-12-14] MEDS ORDERED: *HR* Succinylcholine 200 MG/10 ML VIAL IVP ONE (18:16)
[2018-12-14] MEDS ORDERED: *HR* Etomidate 20 MG/10 ML AMPUL IVP ONE (18:16)
[2018-12-14] MEDS ORDERED: *HR* Rocuronium Bromide 50 MG/5 ML VIAL IVP ONE (18:17)
[2018-12-14] MEDS ORDERED: Dextrose Gel 15 GM/37.5 ML TUBE PO PRN ×2 (18:21)
[2018-12-14] MEDS ORDERED: *HR* Dextrose 50 % in Water (Syg) 50 ML SYRINGE IVP PRN (18:21)
[2018-12-14] MEDS ORDERED: D5% in Water 1,000 ML IVC PRN (18:21)
--- NOTE | 2018-12-14 18:38 | Internal Med History&Physical ---
Date of Encounter: 12/14/18 Time of Encounter: 18:32 Internal Medicine - H&P: HPI Chief complaint: Acute respiratory failure Admitted From: Intrahospital Transfer Plans for Post Hospital Care: Home History of present illness: Mr. Rubalcava is a 58 year old male patient with history of severe COPD on BiPAP at home but does not wear with 6 L home oxygen history of intubation in the past 3 times got recently discharged from [facility] on November 26 after having COPD episode where he got intubated, atrial fibrillation on Coumadin, CHF with AICD, hypertension was transferred from [facility] with concern of acute respiratory failure. Patient was brought to [facility] on BiPAP. When I stepped in to the room patient was obtunded therefore a stat ABG was done with finding of respiratory acidosis therefore immediate intubation was done and patient was shifted to ICU immediately. Critical care consultation also none immediately. As per patient has been feeling generalized weakness and tired decreased appetite in sleepy since after discharge from [facility] but today it was worse and he called his who came from work and took to the [facility]. Review of system-not done due to clinical condition Past Med Surg Social Fam HX - Past Medical History Medical history: atrial fibrillation, cardiomyopathy, CHF, COPD, hyperlipidemia, hypertension Additional medical history: deaf right ear Psychiatric history: anxiety, depression - Past Surgical History Surgical History: pacemaker/AICD - Social History Smoking Status: Former smoker Smokeless Tobacco Status: No Alcohol use: none Drug use: none - Family History Mother Family Member Ethnicity: Non- Living Status: Still Living Hx Family Cardiac Disorders: No Hx Family Respiratory Disorders: No Hx Family Cancer: Yes (uterine) Hx Family GI Disorders: No Hx Family Endocrine Disorder: No Father Adopted: No Family Member Ethnicity: Non- Living Status: Hx Family Cancer: Yes (lung/ kidney) Hx Family GI Disorders: No Internal Medicine - H&P: Meds Atorvastatin Calcium [Lipitor] 80 mg PO DAILY 05/04/15 [History] Multivitamin/Ferrous Sulfate [One-Daily Enrsn-Aaw-Ppnu Tab] 1 tab PO DAILY 05/04/15 [History] Potassium Chloride [Klor-Con 10] 10 meq PO BID 05/05/16 [History] Oxygen 6 l IH AD 12/12/16 [History] Amiodarone [Cordarone] 200 mg PO DAILY 11/23/17 [History] Fluticasone Propionate Nasal [Flonase] 1 spr NS BID 11/23/17 [History] Fluticasone/Salmeterol [Advair Hfa 45-21 Mcg Inhaler] 1 puff IH BID 01/04/18 [History] Warfarin [Coumadin] 8 mg PO 1800 01/04/18 [History] Citalopram Hydrobromide [Citalopram HBr] 60 mg PO DAILY 07/09/18 [History] Ipratropium/Albuterol Sulfate [Iprat-Albut 0.5-3(2.5) mg/3 ml] 3 ml IH Q4H PRN 10/08/18 [History] Furosemide [Lasix] 40 mg PO BID 11/05/18 [History] Allergy/AdvReac Type Severity Reaction Status Date / Time OLIVER Inhibitors AdvReac Cough Verified 11/04/18 11:25 All Systems PM: A 10-system review of systems was performed and is negative for pertinent findings except as documented above in the HPI. - Constitutional Vitals: Resp Pulse Ox 10 94 12/14/18 17:56 12/14/18 17:56 Exam: General appearance: Patient intubated and under the effect of sedating medicine. at bedside. Morbid obese. Head exam: Atraumatic Eye exam: PERRLA ENT exam: Moist oral mucosa Neck nontender, supple Respiratory exam: Decreased breath sound bilaterally with few scattered wheezing Cardiovascular exam: Regular rate and rhythm, no systolic murmur Abdominal exam: Soft, nontender, nondistended, positive bowel sounds Extremities exam: No calf tenderness, no pedal edema Present: Skin-no rash, warm, dry, intact Neurological exam: Limited due to the effect of sedating medicine Internal Med - H&P Results - ABG Interpretation ABG results: 12/14/18 17:59 ABG pH 7.07 L* ABG pCO2 > 150 H* ABG pO2 83 L ABG HCO3 TNP ABG Total CO2 TNP ABG O2 Saturation TNP ABG Base Excess TNP - Assessment and Plan (1) Acute and chronic respiratory failure with hypercapnia Current Visit: No Status: Acute Assessment and plan: Severe COPD. History of intubation 3 in the past. Recent discharge on 26 of November after getting treated for COPD. During this admission ABG with respiratory acidosis while on BiPAP and patient was obtunded therefore intubation done and admitted to ICU. Continue sedating medicine. IV steroid, ventilator management, consulted claims specialist. Repeat ABG and chest x-ray after intubation. Will start broader spectrum antibiotic coverage with vancomycin and Zosyn. (2) COPD exacerbation Current Visit: No Status: Acute Assessment and plan: COPD exacerbation. Contributing above most likely. Continue his steroid, ventilator. Patient has history of noncompliance wearing BiPAP at home. Patient is on 6 L home oxygen. DuoNeb. (3) Chronic respiratory failure Current Visit: No Status: Acute Assessment and plan: Due to severe COPD, obesity hypoventilation syndrome. Patient used BiPAP and 6 L oxygen by nasal cannula at home. Qualifiers: Respiratory failure complication: unspecified whether with hypoxia or hypercapnia Qualified Code(s): J96.10 - Chronic respiratory failure, unspecified whether with hypoxia or hypercapnia (4) DVT prophylaxis Current Visit: No Status: Acute Assessment and plan: Continue Coumadin. INR 2.4 at [facility] (5) Generalized weakness Current Visit: No Status: Acute Assessment and plan: Will consult PT OT after extubation. 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 Patient also has a recent hospitalization. Possible healthcare acquired pneumonia. Vancomycin and Zosyn as started. Respiratory panel, urine Legionella, urine Streptococcus ordered. Continue DuoNeb. Pulmonologists on board Qualifiers: Pneumonia type: due to unspecified organism Laterality: right Lung location: unspecified part of lung Qualified Code(s): J18.9 - Pneumonia, unspecified organism (8) Hypertension Current Visit: No Status: Chronic Assessment and plan: Continue to monitor. Qualifiers: Hypertension type: essential hypertension Qualified Code(s): I10 - Essential (primary) hypertension (9) PAF (paroxysmal atrial fibrillation) Current Visit: No Status: Chronic Assessment and plan: Rate controlled. Continue home medicine. Will consult cardiology if needed - Time Spent With Patient Total time spent is greater than 50% in coordination of care (as documented) at patient's floor/unit and/or counseling patient: Greater than 35 minutes
[2018-12-14] MEDS ORDERED: Artificial Tears SOLN 15 ML BOTTLE BOTH EYES PRN (18:40)
[2018-12-14] MEDS ORDERED: methylPREDNISolone 125 MG/2 ML VIAL IVP ONE (18:46)
[2018-12-14] MEDS: FentaNYL (PF) 1,000 MCG in 0.9 % Sodium Chloride 80 ML IVC SCH (18:48)
[2018-12-14 19:14] LABS: Basophils % 0.1 %; Hemoglobin 10.2 g/dL (12.9-16.9); Mean Corpuscular Volume 96.9 fL (83.0-100.0); Mean Platelet Volume 9.6 fL (9.4-12.4)
[2018-12-14 19:16] LABS: Immature Granulocytes % 0.9 % (0-4); Lymphocytes # 0.2 K/mcL (0.6-4.6); Lymphocytes % 2.5 %; Mean Corpuscular HGB Conc 25.5 g/dL (31.6-35.5); Mean Corpuscular Hemoglobin 24.7 pg (28.0-33.3); Monocytes # 0.2 K/mcL (0.0-1.3); Neutrophils # 8.6 K/mcL (1.6-8.9); Platelet Count 159 K/mcL (140-400); Red Blood Count 4.13 M/mcL (4.19-5.50); Red Cell Distribution Width 15.6 % (11.5-14.5); Segmented Neutrophils % 94.5 %; White Blood Count 9.1 K/mcL (4.3-11.1)
[2018-12-14 19:32] LABS: Albumin 3.9 g/dL (3.5-5.7); Albumin/Globulin Ratio 1.3 (1.1-2.2); Bilirubin,Direct 0.3 mg/dL (0.0-0.2); Bilirubin,Indirect 0.4 mg/dL (0.0-1.2); Bilirubin,Total 0.7 mg/dL (0.3-1.0); Phosphorous 6.4 mg/dL (2.7-4.5); Total Protein 6.9 g/dL (6.4-8.9)
[2018-12-14 19:36] LABS: BUN/Creatinine Ratio 26 (6-26); Blood Urea Nitrogen 25 mg/dL (6-20); Calcium 9.4 mg/dL (8.6-10.3); Carbon Dioxide > 45 mEq/L (23-29); Chloride 90 mEq/L (98-107); Glucose 166 mg/dL (70-105); Magnesium 2.3 mg/dL (1.6-2.6); Osmolality,Calculated 304 (280-300); Potassium 5.5 mEq/L (3.5-5.1); Sodium 143 mEq/L (136-145); eGFR For African Americans > 60 (> 60); eGFR For Non-African Americans > 60 (> 60)
[2018-12-14 19:41] LABS: Hypochromasia Present (Not Present); Platelet Estimate Normal (Normal)
[2018-12-14 19:53] LABS: Estimated Average Glucose 108 mg/dl
[2018-12-14 20:09] LABS: INR 2.1
[2018-12-14 20:32] LABS: ABG Base Excess 25 mEq/L (-2 to 3); ABG HCO3 56 mEq/L (21-27); ABG Oxygen Saturation 95 % (95-98); ABG PCO2 94 mmHg (35-45); ABG PH 7.38 pH Units (7.32-7.45); ABG PO2 84 mmHg (85-104); ABG TCO2 > 50 mEq/L (20-26); Blood Gas Modality VC+; Blood Gas PEEP 5 cm H2O; Blood Gas VT 550 cc
[2018-12-14] MEDS ORDERED: Insulin LISPRO 300 UNITS/3 ML VIAL SQ SCH (21:00)
[2018-12-14] MEDS: Ipratropium/Albuterol Neb 3 ML IH SCH (21:55)
[2018-12-14] MEDS: Chlorhexidine Rinse 15 ML MOUTHWASH MM SCH (22:27)
[2018-12-14] MEDS: Artificial Tears SOLN 15 ML BOTTLE BOTH EYES SCH ×2 (22:27→23:52)
[2018-12-14] MEDS: methylPREDNISolone 125 MG/2 ML VIAL IVP SCH (23:52)
[2018-12-14] MEDS: Piperacillin/Tazobactam 3.375 GM in 0.9 % Sodium Chloride Mini Bag 100 ML IVPB SCH (23:52)
[2018-12-15] MEDS: FentaNYL (PF) 1,000 MCG in 0.9 % Sodium Chloride 80 ML IVC SCH ×4 (01:10→23:09)
[2018-12-15 01:18] LABS: Platelet Count 150 K/mcL (140-400); Red Cell Distribution Width 15.4 % (11.5-14.5)
[2018-12-15 01:19] LABS: Hematocrit 33.1 % (37.5-50.1); Hemoglobin 8.6 g/dL (12.9-16.9); Immature Granulocytes % 0.7 % (0-4); Lymphocytes % 3.6 %; Mean Corpuscular Volume 92.5 fL (83.0-100.0); Red Blood Count 3.58 M/mcL (4.19-5.50); Segmented Neutrophils % 92.4 %; White Blood Count 9.1 K/mcL (4.3-11.1)
[2018-12-15 01:20] LABS: Basophils % 0.1 %; Lymphocytes # 0.3 K/mcL (0.6-4.6); Monocytes # 0.3 K/mcL (0.0-1.3); Monocytes % 3.2 %; Neutrophils # 8.4 K/mcL (1.6-8.9)
[2018-12-15 01:29] LABS: INR 2.7; Prothrombin Time 30.2 Seconds (9.4-12.1)
[2018-12-15 01:44] LABS: BUN/Creatinine Ratio 44 (6-26); Blood Urea Nitrogen 28 mg/dL (6-20); Calcium 8.8 mg/dL (8.6-10.3); Carbon Dioxide > 45 mEq/L (23-29); Chloride 90 mEq/L (98-107); Glucose 122 mg/dL (70-105); Osmolality,Calculated 309 (280-300); Potassium 4.8 mEq/L (3.5-5.1); Sodium 146 mEq/L (136-145); eGFR For African Americans > 60 (> 60); eGFR For Non-African Americans > 60 (> 60)
[2018-12-15 01:49] LABS: Anisocytosis 1+ (Not Present); Hypochromasia Present (Not Present); Ovalocytes 1+ (Not Present); Platelet Estimate Normal (Normal); Stomatocytes 2+ (Not Present)
[2018-12-15] MEDS: Ipratropium/Albuterol Neb 3 ML IH SCH ×4 (03:30→21:17)
[2018-12-15] MEDS: Artificial Tears SOLN 15 ML BOTTLE BOTH EYES SCH ×5 (04:01→20:38)
[2018-12-15 04:07] LABS: Bilirubin,Urine Small (Negative); Blood,Urine Moderate (Negative); Clarity,Urine Cloudy (Clear); Color,Urine Yellow (Yellow); Glucose,Urine (UA) Normal (Normal); Ketones,Urine >=160 mg/dL (Negative); Leukocyte Esterase,Urine Small (Negative); Nitrite,Urine Negative (Negative); PH,Urine 8.5 pH Units (5.0-8.0); Protein,Urine 30 mg/dL (Neg-Trace); Specific Gravity,Urine 1.016 (1.010-1.025); Urobilinogen,Urine Normal (Normal)
[2018-12-15 04:09] LABS: Bacteria,Urine None Seen per hpf (None-Few); Squamous Epithelial Cell,Urine Many per lpf (None-Few); WBC,Urine 15-30 per hpf (0-3)
[2018-12-15 04:25] LABS: RBC,Urine 50-100 per hpf (0-3)
[2018-12-15 04:26] LABS: Hyaline Casts,Urine Moderate per lpf (None-Few)
[2018-12-15 05:55] LABS: ABG Base Excess 23 mEq/L (-2 to 3); ABG HCO3 51 mEq/L (21-27); ABG Oxygen Saturation 91 % (95-98); ABG PCO2 76 mmHg (35-45); ABG PH 7.43 pH Units (7.32-7.45); ABG PO2 63 mmHg (85-104); ABG TCO2 > 50 mEq/L (20-26); Blood Gas Modality VC+; Blood Gas PEEP 5 cm H2O; Blood Gas VT 550 cc
--- NOTE | 2018-12-15 07:06 | Pulmonology Consult Note ---
<Sabas Gray - Last Filed: 12/15/18 15:59> Date of Encounter: 12/15/18 Time of Encounter: 07:05 Assessment and Plan (1) Acute on chronic respiratory failure with hypercapnia Current Visit: Yes Status: Acute Patient has history of severe COPD with multiple hospitalizations and intubations He has BiPAP and oxygen at home that he is not compliant with He was recently discharged from [facility] at the end of October for a similar COPD exacerbation He presented to [facility] in acute respiratory distress and was intubated and transferred to ICU This acute respiratory failure is likely secondary to COPD exacerbation with a component of heart failure exacerbation ABG before and after intubation consistent with acute respiratory acidosis Repeat ABG this morning corrected however the patient has adjusted to a baseline acidic pH and abnormal pH becomes apneic We will change vent settings to restore a mild respiratory acidosis and reevaluate Plan to continue chemical ventilation, vent management bundle in place, sedation with propofol and fentanyl Vancomycin and Zosyn covering for possible and likely hospital-acquired pneumonia Repeat ABG and chest x-ray in a.m. otherwise patient is saturating and ventilating appropriately on mechanical ventilation (2) Encephalopathy acute Current Visit: Yes Status: Acute Patient was apparently altered prior to sedation and intubation Likely secondary to respiratory acidosis +/- sepsis Currently sedated and unable to assess, however anticipate encephalopathy will resolve with treatment of respiratory failure and infection We will reassess after extubation (3) Acute exacerbation of chronic obstructive airways disease Current Visit: Yes Status: Acute (4) CHF exacerbation Current Visit: Yes Status: Acute Likely a component of acute exacerbation of CHF as part of acute respiratory failure We will initiate 40 IV twice a day Lasix for 2 days and reassess We will continue to monitor urine output and electrolytes and renal function Qualifiers: Qualified Code(s): I50.33 - Acute on chronic diastolic (congestive) heart failure (5) Pneumonia Current Visit: Yes Status: Acute Given clinical status and recent history patient likely has a component of hospital-acquired pneumonia We will cover with vancomycin and Zosyn and de-escalate as clinical condition and cultures warrant Qualifiers: Pneumonia type: due to unspecified organism Laterality: unspecified laterality Lung location: unspecified part of lung Qualified Code(s): J18.9 - Pneumonia, unspecified organism (6) PAF (paroxysmal atrial fibrillation) Current Visit: No Status: Chronic History of paroxysmal atrial fibrillation, rate and rhythm currently controlled, we will continue to monitor (7) Morbid obesity with BMI of 50.0-59.9, adult Current Visit: No Status: Chronic History of Present Illness Consult date: 12/15/18 Requesting physician: Rena Boateng Reason for consult: other (Acute respiratory failure) Chief complaint: Dyspnea and altered mental status History of present illness: Patient is a 58-year-old male with a past medical history of severe COPD on BiPAP and home oxygen, atrial fibrillation on Coumadin, CHF status post AICD, hypertension. Patient was transferred from [facility] for acute respiratory failure and was admitted to the general medical floor, shortly after arrival he was found to be in severe respiratory acidosis, he was rapidly intubated and transferred to the ICU. On arrival to the ICU patient was hooked up to mechanical ventilation, sedation was initiated and he was sufficiently stabilized with appropriate blood pressure, heart rate, oxygen saturation. Past Med Surg Social Fam HX - Past Medical History Medical history: atrial fibrillation, cardiomyopathy, CHF, COPD, hyperlipidemia, hypertension Additional medical history: deaf right ear Psychiatric history: anxiety, depression - Past Surgical History Surgical History: pacemaker/AICD - Social History Smoking Status: Former smoker Smokeless Tobacco Status: No Alcohol use: none Drug use: none - Family History Mother Family Member Ethnicity: Non- Living Status: Still Living Hx Family Cardiac Disorders: No Hx Family Respiratory Disorders: No Hx Family Cancer: Yes (uterine) Hx Family GI Disorders: No Hx Family Endocrine Disorder: No Father Adopted: No Family Member Ethnicity: Non- Living Status: Hx Family Cancer: Yes (lung/ kidney) Hx Family GI Disorders: No Medications and Allergies Atorvastatin Calcium [Lipitor] 80 mg PO DAILY 05/04/15 [History] Multivitamin/Ferrous Sulfate [One-Daily Sdqml-Lsh-Cozb Tab] 1 tab PO DAILY 05/04/15 [History] Potassium Chloride [Klor-Con 10] 10 meq PO BID 05/05/16 [History] Oxygen 6 l IH AD 12/12/16 [History] Amiodarone [Cordarone] 200 mg PO DAILY 11/23/17 [History] Fluticasone Propionate Nasal [Flonase] 1 spr NS BID 11/23/17 [History] Fluticasone/Salmeterol [Advair Hfa 45-21 Mcg Inhaler] 1 puff IH BID 01/04/18 [History] Warfarin [Coumadin] 8 mg PO 1800 01/04/18 [History] Citalopram Hydrobromide [Citalopram HBr] 60 mg PO DAILY 07/09/18 [History] Ipratropium/Albuterol Sulfate [Iprat-Albut 0.5-3(2.5) mg/3 ml] 3 ml IH Q4H PRN 10/08/18 [History] Furosemide [Lasix] 40 mg PO BID 11/05/18 [History] Allergy/AdvReac Type Severity Reaction Status Date / Time OLIVER Inhibitors AdvReac Cough Verified 11/04/18 11:25 ROS unobtainable: due to endotracheal tube, due to mental status All Systems: The remainder of the systems were reviewed and are negative Physical Examination Vital Signs: Vital Signs, Last 4 Hours Temp Pulse Resp BP Pulse Ox 12/15/18 07:00 74 18 111/67 96 12/15/18 06:00 66 18 114/53 95 12/15/18 05:39 16 93 12/15/18 05:00 73 16 112/61 94 12/15/18 04:08 99.8 F H 12/15/18 04:00 74 16 110/54 93 12/15/18 03:30 16 96 General appearance: no acute distress (Sedated) Effort: other (Mechanically ventilated) Auscultation: bilateral: diminished breath sounds Cardiovascular: regular rate and rhythm Gastrointestinal: absent bowel sounds, soft, non-tender, non-distended, other (Morbidly obese) Integumentary: other (Chronic venous stasis skin changes on bilateral lower extremities) Extremities: no cyanosis, pink and warm, edema Musculoskeletal: no deformities pupils equal and round, other (Sedated) Ventilator Settings Ventilator Settings: Ventilator Settings, Last 8 Hours Ventilator Tidal Volume 550 Setting Ventilator Tidal Volume 550 Setting Ventilator Tidal Volume 550 Setting Ventilator Tidal Volume 550 Setting Ventilator Tidal Volume 550 Setting Ventilator Tidal Volume 550 Setting Ventilator Tidal Volume 550 Setting Ventilator Tidal Volume 550 Setting Ventilator Tidal Volume 550 Setting Ventilator Tidal Volume 550 Setting Ventilator Tidal Volume 550 Setting Ventilator Tidal Volume 550 Setting Ventilator Tidal Volume 550 Setting Ventilator Respiratory Rate 16 Setting Ventilator Respiratory Rate 16 Setting Ventilator Respiratory Rate 16 Setting Ventilator Respiratory Rate 16 Setting Ventilator Respiratory Rate 16 Setting Ventilator Respiratory Rate 16 Setting Ventilator Respiratory Rate 16 Setting Ventilator Respiratory Rate 16 Setting Ventilator Respiratory Rate 16 Setting Ventilator Respiratory Rate 16 Setting Ventilator Respiratory Rate 16 Setting Ventilator Respiratory Rate 16 Setting Ventilator Respiratory Rate 16 Setting Actual Respiratory Rate 16 Actual Respiratory Rate 16 Actual Respiratory Rate 16 Actual Respiratory Rate 16 Actual Respiratory Rate 16 Actual Respiratory Rate 16 Actual Respiratory Rate 16 Actual Respiratory Rate 16 Actual Respiratory Rate 16 Actual Respiratory Rate 16 Actual Respiratory Rate 16 Actual Respiratory Rate 16 Positive End Expiratory 5 Pressure Positive End Expiratory 5 Pressure Positive End Expiratory 5 Pressure Positive End Expiratory 5 Pressure Positive End Expiratory 5 Pressure Positive End Expiratory 5 Pressure Positive End Expiratory 5 Pressure Positive End Expiratory 5 Pressure Positive End Expiratory 5 Pressure Positive End Expiratory 5 Pressure Positive End Expiratory 5 Pressure Positive End Expiratory 5 Pressure Positive End Expiratory 5 Pressure Peak Inspiratory Airway 38 Pressure Peak Inspiratory Airway 31 Pressure Peak Inspiratory Airway 34 Pressure Peak Inspiratory Airway 33 Pressure Peak Inspiratory Airway 32 Pressure Peak Inspiratory Airway 36 Pressure Peak Inspiratory Airway 41 Pressure Peak Inspiratory Airway 40 Pressure Peak Inspiratory Airway 42 Pressure Peak Inspiratory Airway 41 Pressure Peak Inspiratory Airway 39 Pressure Peak Inspiratory Airway 38 Pressure Results - Laboratory Findings CBC and BMP: 12/15/18 00:43 12/15/18 00:43 ABG ABG pH 7.43 pH Units (7.32-7.45) 12/15/18 05:51 ABG pCO2 76 mmHg (35-45) H* 12/15/18 05:51 ABG pO2 63 mmHg (85-104) L 12/15/18 05:51 ABG O2 Saturation 91 % (95-98) L 12/15/18 05:51 PT/INR, D-dimer PT 30.2 Seconds (9.4-12.1) H 12/15/18 00:43 Abnormal lab findings: Abnormal lab results RBC 3.58 M/mcL (4.19-5.50) L 12/15/18 00:43 Hgb 8.6 g/dL (12.9-16.9) L D 12/15/18 00:43 Hct 33.1 % (37.5-50.1) L 12/15/18 00:43 MCH 24.0 pg (28.0-33.3) L 12/15/18 00:43 MCHC 26.0 g/dL (31.6-35.5) L 12/15/18 00:43 RDW 15.4 % (11.5-14.5) H 12/15/18 00:43 0.3 K/mcL (0.6-4.6) L 12/15/18 00:43 Present (Not Present) A 12/15/18 00:43 1+ (Not Present) A 12/15/18 00:43 1+ (Not Present) A 12/15/18 00:43 2+ (Not Present) A 12/15/18 00:43 PT 30.2 Seconds (9.4-12.1) H 12/15/18 00:43 ABG pH 7.07 pH Units (7.32-7.45) L* 12/14/18 17:59 ABG pCO2 76 mmHg (35-45) H* 12/15/18 05:51 ABG pO2 63 mmHg (85-104) L 12/15/18 05:51 ABG HCO3 51 mEq/L (21-27) H 12/15/18 05:51 ABG Total CO2 > 50 mEq/L (20-26) H 12/15/18 05:51 ABG O2 Saturation 91 % (95-98) L 12/15/18 05:51 ABG Base Excess 23 mEq/L (-2 to 3) H 12/15/18 05:51 Sodium 146 mEq/L (136-145) H 12/15/18 00:43 Potassium 5.5 mEq/L (3.5-5.1) H 12/14/18 18:53 Chloride 90 mEq/L (98-107) L 12/15/18 00:43 Carbon Dioxide > 45 mEq/L (23-29) H* 12/15/18 00:43 BUN 28 mg/dL (6-20) H 12/15/18 00:43 0.64 mg/dL (0.70-1.30) L 12/15/18 00:43 44 (6-26) H 12/15/18 00:43 Glucose 122 mg/dL (70-105) H 12/15/18 00:43 POC Glucose 150 mg/dL (70-99) H 12/14/18 20:42 309 (280-300) H 12/15/18 00:43 Phosphorus 6.4 mg/dL (2.7-4.5) H 12/14/18 18:53 0.3 mg/dL (0.0-0.2) H 12/14/18 18:53 Cloudy (Clear) A 12/15/18 03:40 8.5 pH Units (5.0-8.0) H 12/15/18 03:40 30 mg/dL (Neg-Trace) H 12/15/18 03:40 >=160 mg/dL (Negative) H 12/15/18 03:40 Moderate (Negative) H 12/15/18 03:40 Small (Negative) H 12/15/18 03:40 Ur Leukocyte Esterase Small (Negative) H 12/15/18 03:40 50-100 per hpf (0-3) H 12/15/18 03:40 15-30 per hpf (0-3) H 12/15/18 03:40 Ur Squamous Epith Cells Many per lpf (None-Few) H 12/15/18 03:40 Hyaline Casts Moderate per lpf (None-Few) H 12/15/18 03:40 - Microbiology Findings Microbiology Findings: Microbiology, Last 48 Hours 12/14/18 18:33 Blood Culture - Preliminary Peripheral Venipuncture Culture is incubating and being continuously monitored for growth. Final report to follow. 12/14/18 18:33 Blood Culture - Preliminary Peripheral Venipuncture Culture is incubating and being continuously monitored for growth. Final report to follow. - Clinical Findings Intake & Output: Intake & Output 12/14/18 12/14/18 12/15/18 15:59 23:59 07:59 Intake Total 764 / 764 336 / 336 Output Total 975 / 975 Balance 764 / 39 -639 / -639 Weight 188 kg 188.4 kg Consult Discharge Plan - Plan Referrals: Jay Cool MD [Primary Care Provider] - <Chip Cornejo - Last Filed: 12/16/18 00:22> Date of Encounter: 12/15/18 All Systems: The remainder of the systems were reviewed and are negative Physical Examination Vital Signs: Vital Signs, Last 4 Hours Temp Pulse Resp BP Pulse Ox 12/15/18 13:00 62 12 105/55 96 12/15/18 12:46 98.7 F 12/15/18 12:34 12 102/50 95 12/15/18 12:00 64 14 108/57 93 12/15/18 11:00 68 14 107/54 93 12/15/18 10:00 66 14 104/49 94 12/15/18 09:42 12 117/61 94 12/15/18 09:31 99.2 F Ventilator Settings Ventilator Settings: Ventilator Settings, Last 8 Hours Ventilator Tidal Volume 550 Setting Ventilator Tidal Volume 550 Setting Ventilator Tidal Volume 550 Setting Ventilator Tidal Volume 550 Setting Ventilator Tidal Volume 550 Setting Ventilator Tidal Volume 550 Setting Ventilator Tidal Volume 550 Setting Ventilator Tidal Volume 550 Setting Ventilator Tidal Volume 550 Setting Ventilator Tidal Volume 550 Setting Ventilator Tidal Volume 550 Setting Ventilator Tidal Volume 550 Setting Ventilator Tidal Volume 550 Setting Ventilator Respiratory Rate 12 Setting Ventilator Respiratory Rate 12 Setting Ventilator Respiratory Rate 12 Setting Ventilator Respiratory Rate 12 Setting Ventilator Respiratory Rate 12 Setting Ventilator Respiratory Rate 12 Setting Ventilator Respiratory Rate 12 Setting Ventilator Respiratory Rate 16 Setting Ventilator Respiratory Rate 16 Setting Ventilator Respiratory Rate 16 Setting Ventilator Respiratory Rate 16 Setting Ventilator Respiratory Rate 16 Setting Ventilator Respiratory Rate 16 Setting Actual Respiratory Rate 12 Actual Respiratory Rate 12 Actual Respiratory Rate 16 Actual Respiratory Rate 16 Actual Respiratory Rate 16 Actual Respiratory Rate 16 Positive End Expiratory 5 Pressure Positive End Expiratory 5 Pressure Positive End Expiratory 5 Pressure Positive End Expiratory 5 Pressure Positive End Expiratory 5 Pressure Positive End Expiratory 5 Pressure Positive End Expiratory 5 Pressure Positive End Expiratory 5 Pressure Positive End Expiratory 5 Pressure Positive End Expiratory 5 Pressure Positive End Expiratory 5 Pressure Positive End Expiratory 5 Pressure Positive End Expiratory 5 Pressure Peak Inspiratory Airway 30 Pressure Peak Inspiratory Airway 29 Pressure Peak Inspiratory Airway 30 Pressure Peak Inspiratory Airway 30 Pressure Peak Inspiratory Airway 30 Pressure Peak Inspiratory Airway 36 Pressure Peak Inspiratory Airway 35 Pressure Peak Inspiratory Airway 36 Pressure Peak Inspiratory Airway 36 Pressure Peak Inspiratory Airway 38 Pressure Peak Inspiratory Airway 31 Pressure Peak Inspiratory Airway 34 Pressure Results - Laboratory Findings CBC and BMP: 12/15/18 00:43 12/15/18 00:43 ABG ABG pH 7.42 pH Units (7.32-7.45) 12/15/18 10:03 ABG pCO2 82 mmHg (35-45) H* 12/15/18 10:03 ABG pO2 61 mmHg (85-104) L 12/15/18 10:03 ABG O2 Saturation 89 % (95-98) L 12/15/18 10:03 PT/INR, D-dimer PT 30.2 Seconds (9.4-12.1) H 12/15/18 00:43 Abnormal lab findings: Abnormal lab results RBC 3.58 M/mcL (4.19-5.50) L 12/15/18 00:43 Hgb 8.6 g/dL (12.9-16.9) L D 12/15/18 00:43 Hct 33.1 % (37.5-50.1) L 12/15/18 00:43 MCH 24.0 pg (28.0-33.3) L 12/15/18 00:43 MCHC 26.0 g/dL (31.6-35.5) L 12/15/18 00:43 RDW 15.4 % (11.5-14.5) H 12/15/18 00:43 0.3 K/mcL (0.6-4.6) L 12/15/18 00:43 Present (Not Present) A 12/15/18 00:43 1+ (Not Present) A 12/15/18 00:43 1+ (Not Present) A 12/15/18 00:43 2+ (Not Present) A 12/15/18 00:43 PT 30.2 Seconds (9.4-12.1) H 12/15/18 00:43 ABG pH 7.07 pH Units (7.32-7.45) L* 12/14/18 17:59 ABG pCO2 82 mmHg (35-45) H* 12/15/18 10:03 ABG pO2 61 mmHg (85-104) L 12/15/18 10:03 ABG HCO3 54 mEq/L (21-27) H 12/15/18 10:03 ABG Total CO2 > 50 mEq/L (20-26) H 12/15/18 10:03 ABG O2 Saturation 89 % (95-98) L 12/15/18 10:03 ABG Base Excess 25 mEq/L (-2 to 3) H 12/15/18 10:03 Sodium 146 mEq/L (136-145) H 12/15/18 00:43 Potassium 5.5 mEq/L (3.5-5.1) H 12/14/18 18:53 Chloride 90 mEq/L (98-107) L 12/15/18 00:43 Carbon Dioxide > 45 mEq/L (23-29) H* 12/15/18 00:43 BUN 28 mg/dL (6-20) H 12/15/18 00:43 0.64 mg/dL (0.70-1.30) L 12/15/18 00:43 44 (6-26) H 12/15/18 00:43 Glucose 122 mg/dL (70-105) H 12/15/18 00:43 POC Glucose 162 mg/dL (70-99) H 12/15/18 12:07 309 (280-300) H 12/15/18 00:43 Phosphorus 6.4 mg/dL (2.7-4.5) H 12/14/18 18:53 0.3 mg/dL (0.0-0.2) H 12/14/18 18:53 Cloudy (Clear) A 12/15/18 03:40 8.5 pH Units (5.0-8.0) H 12/15/18 03:40 30 mg/dL (Neg-Trace) H 12/15/18 03:40 >=160 mg/dL (Negative) H 12/15/18 03:40 Moderate (Negative) H 12/15/18 03:40 Small (Negative) H 12/15/18 03:40 Ur Leukocyte Esterase Small (Negative) H 12/15/18 03:40 50-100 per hpf (0-3) H 12/15/18 03:40 15-30 per hpf (0-3) H 12/15/18 03:40 Ur Squamous Epith Cells Many per lpf (None-Few) H 12/15/18 03:40 Hyaline Casts Moderate per lpf (None-Few) H 12/15/18 03:40 - Microbiology Findings Microbiology Findings: Microbiology, Last 48 Hours 12/15/18 03:40 Sputum Culture - Preliminary Sputum 12/15/18 03:40 Legionella Antigen - Final Urine,Clean Catch Streptococcus pneumoniae Antigen (M - Final 12/14/18 18:33 Blood Culture - Preliminary Peripheral Venipuncture Culture is incubating and being continuously monitored for growth. Final report to follow. 12/14/18 18:33 Blood Culture - Preliminary Peripheral Venipuncture Culture is incubating and being continuously monitored for growth. Final report to follow. - Clinical Findings Intake & Output: Intake & Output 12/14/18 12/15/18 12/15/18 23:59 07:59 15:59 Intake Total 764 / 764 436 / 1206 770 / 1206 Output Total 975 / 1425 450 / 1425 Balance 764 / 39 -539 / -219 320 / -219 Weight 188 kg 188.4 kg - Attending Attestation I examined this patient and my medical decision-making was reviewed with the Resident Physician. I agree with the documented findings, disposition and treatment plan as described except to the extent set forth below. Patient seen and examined. Labs, radiology, chart personally reviewed. Agree with resident's history and physical, assessment, plan with following comments: ENERGY AUDIT ADVISOR: Patient doesn't follows commands, Will lower sedation as much as possible. Pulmonary: Acceptable oxygenation and ventilation and earlier he failed SBT because of apnea and that is expected with patient of chronic respiratory failure and he lives on high PCO2 and for that reason I have changed his vent setting tragetting higher PCO2, which would be normal for patient and I suspect he will do better. Unfortunately with his morbid obesity and his previous history of not be fully compliant with his NIV, prognosis might not be good. Cardiovascular: stable and diuresis might worsen his acid-base problem, however he needs it. GI: Nutrition per dietary and GI prophylaxis per routine Heme: DVT prophylaxis per routine ID: Continue antibiotics and plan to de-escalation Renal; urine out put and renal function reviewed Endorcine: blood glucose is monitored Lines: all lines checked and no evidence of infections Skin: skin care to prevent pressure ulcers per nursing routine care Dispo:ICU Code: Full. Prognosis.Critical to guarded now, however overall is poor if he will not lose weight and be compliant. I spent 50 min of Critical Care time with this patient. It involved decision making of high complexity to assess, manipulate, and support vital organ system failure and/or to prevent further life threatening deterioration of the patient's condition. The time involved in the performance of separately reportable procedures was not counted toward critical care time.
[2018-12-15] MEDS: Piperacillin/Tazobactam 3.375 GM in 0.9 % Sodium Chloride Mini Bag 100 ML IVPB SCH ×3 (08:24→23:59)
[2018-12-15] MEDS: methylPREDNISolone 125 MG/2 ML VIAL IVP SCH ×3 (08:25→23:59)
[2018-12-15] MEDS: Chlorhexidine Rinse 15 ML MOUTHWASH MM SCH ×2 (08:25→20:38)
[2018-12-15] MEDS: Pantoprazole 40 MG VIAL IVP SCH (08:25)
[2018-12-15] MEDS: Insulin LISPRO 300 UNITS/3 ML VIAL SQ SCH ×4 (08:25→23:59)
[2018-12-15 08:29] LABS: Adenovirus Not Detected (Not Detect); Bordetella Pertussis Not Detected (Not Detect); Chlamydophila pneumoniae Not Detected (Not Detect); Coronavirus 229E Not Detected (Not Detect); Coronavirus HKU1 Not Detected (Not Detect); Coronavirus NL63 Not Detected (Not Detect); Coronavirus OC43 Not Detected (Not Detect); Human Metapneumovirus Not Detected (Not Detect); Human Rhinovirus/Enterovirus Not Detected (Not Detect); Influenza A Subtype 2009 H1 Not Detected (Not Detect); Influenza A Untypeable Not Detected (Not Detect); Influenza B Not Detected (Not Detect); Mycoplasma pneumoniae Not Detected (Not Detect); Parainfluenza Virus 1 Not Detected (Not Detect); Parainfluenza Virus 2 Not Detected (Not Detect); Parainfluenza Virus 3 Not Detected (Not Detect); Parainfluenza Virus 4 Not Detected (Not Detect); Respiratory Syncytial Virus Not Detected (Not Detect)
[2018-12-15 10:13] LABS: ABG Base Excess 25 mEq/L (-2 to 3); ABG HCO3 54 mEq/L (21-27); ABG Oxygen Saturation 89 % (95-98); ABG PCO2 82 mmHg (35-45); ABG PH 7.42 pH Units (7.32-7.45); ABG PO2 61 mmHg (85-104); ABG TCO2 > 50 mEq/L (20-26); Blood Gas Modality ASSIST CONTROL; Blood Gas PEEP 5 cm H2O; Blood Gas VT 550 cc
[2018-12-15] MEDS ORDERED: *HR* Warfarin 4 MG TABLET PO SCH (18:00)
[2018-12-15] MEDS: Furosemide 40 MG/4 ML VIAL IVP SCH (20:38)
[2018-12-16] MEDS: Artificial Tears SOLN 15 ML BOTTLE BOTH EYES SCH ×6 (00:15→19:50)
[2018-12-16] MEDS: Ipratropium/Albuterol Neb 3 ML IH SCH ×4 (03:23→21:09)
[2018-12-16 04:50] LABS: ABG Base Excess 25 mEq/L (-2 to 3); ABG HCO3 54 mEq/L (21-27); ABG Oxygen Saturation 92 % (95-98); ABG PCO2 77 mmHg (35-45); ABG PH 7.45 pH Units (7.32-7.45); ABG PO2 67 mmHg (85-104); ABG TCO2 > 50 mEq/L (20-26); Blood Gas Modality PRVC; Blood Gas PEEP 5 cm H2O; Blood Gas VT 550 cc
[2018-12-16] MEDS: FentaNYL (PF) 1,000 MCG in 0.9 % Sodium Chloride 80 ML IVC SCH (05:20)
[2018-12-16] MEDS: Insulin LISPRO 300 UNITS/3 ML VIAL SQ SCH ×3 (06:36→17:30)
[2018-12-16 07:15] LABS: Hemoglobin 9.2 g/dL (12.9-16.9); Immature Granulocytes % 0.6 % (0-4); Lymphocytes % 2.6 %; Mean Corpuscular HGB Conc 26.7 g/dL (31.6-35.5); Red Cell Distribution Width 15.5 % (11.5-14.5)
[2018-12-16 07:18] LABS: Hematocrit 34.5 % (37.5-50.1); Lymphocytes # 0.3 K/mcL (0.6-4.6); Mean Corpuscular Hemoglobin 24.5 pg (28.0-33.3); Mean Platelet Volume 9.8 fL (9.4-12.4); Monocytes # 0.5 K/mcL (0.0-1.3); Monocytes % 4.6 %; Neutrophils # 10.2 K/mcL (1.6-8.9); Platelet Count 172 K/mcL (140-400); Red Blood Count 3.75 M/mcL (4.19-5.50); Segmented Neutrophils % 92.2 %; White Blood Count 11.1 K/mcL (4.3-11.1)
[2018-12-16 07:22] LABS: INR 3.7; Prothrombin Time 41.6 Seconds (9.4-12.1)
[2018-12-16 07:37] LABS: Hypochromasia Present (Not Present); Platelet Estimate Normal (Normal)
[2018-12-16 07:46] LABS: BUN/Creatinine Ratio 48 (6-26); Blood Urea Nitrogen 31 mg/dL (6-20); Calcium 9.1 mg/dL (8.6-10.3); Carbon Dioxide > 45 mEq/L (23-29); Chloride 92 mEq/L (98-107); Glucose 197 mg/dL (70-105); Osmolality,Calculated 314 (280-300); Potassium 3.8 mEq/L (3.5-5.1); Sodium 146 mEq/L (136-145); Vancomycin,Trough 15 mcg/mL (5-10); eGFR For African Americans > 60 (> 60); eGFR For Non-African Americans > 60 (> 60)
[2018-12-16] MEDS ORDERED: Aminoglycoside Consult 1 EACH MC ONE (07:48)
[2018-12-16] MEDS: Furosemide 40 MG/4 ML VIAL IVP SCH ×2 (08:54→19:50)
[2018-12-16] MEDS: Pantoprazole 40 MG VIAL IVP SCH (08:54)
[2018-12-16] MEDS: Piperacillin/Tazobactam 3.375 GM in 0.9 % Sodium Chloride Mini Bag 100 ML IVPB SCH ×2 (08:55→15:40)
[2018-12-16] MEDS: methylPREDNISolone 125 MG/2 ML VIAL IVP SCH ×2 (08:55→15:39)
[2018-12-16] MEDS: *HR* Amiodarone 200 MG TABLET PO SCH ×2 (08:56→14:38)
[2018-12-16] MEDS: Chlorhexidine Rinse 15 ML MOUTHWASH MM SCH ×2 (08:56→19:50)
--- NOTE | 2018-12-16 09:05 | Pulmonology Progress Note ---
<Sabas Gray - Last Filed: 12/16/18 11:10> Date of Encounter: 12/16/18 Time of Encounter: 09:05 Assessment and Plan (1) Acute on chronic respiratory failure with hypercapnia Current Visit: Yes Status: Acute Patient has history of severe COPD with multiple hospitalizations and intubations He has BiPAP and oxygen at home that he is not compliant with He was recently discharged from [facility] at the end of October for a similar COPD exacerbation He presented to [facility] in acute respiratory distress and was intubated and transferred to ICU This acute respiratory failure is likely secondary to COPD exacerbation with a component of heart failure exacerbation ABG before and after intubation consistent with acute respiratory acidosis The patient has adjusted to a baseline acidic pH and at normal pH becomes apneic Vent settings were changed to allow for a mild respiratory acidosis Patient did well overnight, passed CPAP trial this morning and was successfully extubated to BiPAP Currently saturating and ventilating appropriately on BiPAP Vancomycin and Zosyn covering for possible and likely hospital-acquired pneumonia Monitor today and if patient does well consider transfer to floor tomorrow (2) Encephalopathy acute Current Visit: Yes Status: Acute Patient appeared to be encephalopathic on presentation, likely secondary to severe respiratory acidosis Successfully extubated this morning, sedation off, he is still adjusting but appears to be normal mental status (3) Acute exacerbation of chronic obstructive airways disease Current Visit: Yes Status: Acute Continue steroids and bronchodilators (4) Pneumonia Current Visit: Yes Status: Acute Continue antibiotic coverage as above Qualifiers: Pneumonia type: due to unspecified organism Laterality: unspecified laterality Lung location: unspecified part of lung Qualified Code(s): J18.9 - Pneumonia, unspecified organism (5) PAF (paroxysmal atrial fibrillation) Current Visit: No Status: Chronic Rate and rhythm currently controlled (6) Morbid obesity with BMI of 50.0-59.9, adult Current Visit: No Status: Chronic (7) Acute diastolic (congestive) heart failure Current Visit: Yes Status: Acute Continue diuresis Subjective Principal diagnosis: Acute respiratory failure Interval history: No acute events overnight, patient successfully extubated this morning to BiPAP and doing well. Objective PUL Vital signs: Last Vital Signs Temp 98.2 F 12/16/18 08:39 Pulse 83 12/16/18 08:00 Resp 14 12/16/18 08:40 BP 120/74 12/16/18 08:40 Pulse Ox 94 12/16/18 08:40 General appearance: no acute distress Eyes: nonicteric ENT: oropharynx dry, other (BiPAP mask in place) Neck: supple Effort: other (On BiPAP) Auscultation: bilateral: diminished breath sounds Cardiovascular: regular rate and rhythm Gastrointestinal: normoactive bowel sounds, soft, non-tender, non-distended Integumentary: other (Chronic venous stasis skin changes on bilateral lower extremities, no open wounds or sores noted) Extremities: no cyanosis, pink and warm, pulses normal (Pulses diminished but present in bilateral lower extremities), edema Musculoskeletal: no deformities normal mental status Ventilator Settings Ventilator Settings: Ventilator Settings, Last 8 Hours Ventilator Tidal Volume 550 Setting Ventilator Tidal Volume 550 Setting Ventilator Tidal Volume 550 Setting Ventilator Tidal Volume 550 Setting Ventilator Tidal Volume 550 Setting Ventilator Tidal Volume 550 Setting Ventilator Tidal Volume 550 Setting Ventilator Tidal Volume 550 Setting Ventilator Respiratory Rate 12 Setting Ventilator Respiratory Rate 12 Setting Ventilator Respiratory Rate 12 Setting Ventilator Respiratory Rate 12 Setting Ventilator Respiratory Rate 12 Setting Ventilator Respiratory Rate 12 Setting Ventilator Respiratory Rate 12 Setting Ventilator Respiratory Rate 12 Setting Actual Respiratory Rate 15 Actual Respiratory Rate 12 Actual Respiratory Rate 15 Actual Respiratory Rate 12 Actual Respiratory Rate 12 Actual Respiratory Rate 12 Actual Respiratory Rate 12 Actual Respiratory Rate 12 Actual Respiratory Rate 12 Actual Respiratory Rate 12 Positive End Expiratory 5 Pressure Positive End Expiratory 5 Pressure Positive End Expiratory 5 Pressure Positive End Expiratory 5 Pressure Positive End Expiratory 5 Pressure Positive End Expiratory 5 Pressure Positive End Expiratory 5 Pressure Positive End Expiratory 5 Pressure Positive End Expiratory 5 Pressure Positive End Expiratory 5 Pressure Positive End Expiratory 5 Pressure Peak Inspiratory Airway 15 Pressure Peak Inspiratory Airway 15 Pressure Peak Inspiratory Airway 13 Pressure Peak Inspiratory Airway 29 Pressure Peak Inspiratory Airway 29 Pressure Peak Inspiratory Airway 31 Pressure Peak Inspiratory Airway 32 Pressure Peak Inspiratory Airway 32 Pressure Peak Inspiratory Airway 31 Pressure Peak Inspiratory Airway 33 Pressure Results - Laboratory Findings CBC and BMP: 12/16/18 06:51 12/16/18 06:51 ABG ABG pH 7.45 pH Units (7.32-7.45) 12/16/18 04:42 ABG pCO2 77 mmHg (35-45) H* 12/16/18 04:42 ABG pO2 67 mmHg (85-104) L 12/16/18 04:42 ABG O2 Saturation 92 % (95-98) L 12/16/18 04:42 PT/INR, D-dimer PT 41.6 Seconds (9.4-12.1) H 12/16/18 06:51 Abnormal lab findings: Abnormal lab results RBC 3.75 M/mcL (4.19-5.50) L 12/16/18 06:51 Hgb 9.2 g/dL (12.9-16.9) L 12/16/18 06:51 Hct 34.5 % (37.5-50.1) L 12/16/18 06:51 MCH 24.5 pg (28.0-33.3) L 12/16/18 06:51 MCHC 26.7 g/dL (31.6-35.5) L 12/16/18 06:51 RDW 15.5 % (11.5-14.5) H 12/16/18 06:51 10.2 K/mcL (1.6-8.9) H 12/16/18 06:51 0.3 K/mcL (0.6-4.6) L 12/16/18 06:51 Present (Not Present) A 12/16/18 06:51 1+ (Not Present) A 12/15/18 00:43 1+ (Not Present) A 12/15/18 00:43 2+ (Not Present) A 12/15/18 00:43 PT 41.6 Seconds (9.4-12.1) H 12/16/18 06:51 ABG pH 7.07 pH Units (7.32-7.45) L* 12/14/18 17:59 ABG pCO2 77 mmHg (35-45) H* 12/16/18 04:42 ABG pO2 67 mmHg (85-104) L 12/16/18 04:42 ABG HCO3 54 mEq/L (21-27) H 12/16/18 04:42 ABG Total CO2 > 50 mEq/L (20-26) H 12/16/18 04:42 ABG O2 Saturation 92 % (95-98) L 12/16/18 04:42 ABG Base Excess 25 mEq/L (-2 to 3) H 12/16/18 04:42 Sodium 146 mEq/L (136-145) H 12/16/18 06:51 Potassium 5.5 mEq/L (3.5-5.1) H 12/14/18 18:53 Chloride 92 mEq/L (98-107) L 12/16/18 06:51 Carbon Dioxide > 45 mEq/L (23-29) H* 12/16/18 06:51 BUN 31 mg/dL (6-20) H 12/16/18 06:51 0.64 mg/dL (0.70-1.30) L 12/16/18 06:51 48 (6-26) H 12/16/18 06:51 Glucose 197 mg/dL (70-105) H 12/16/18 06:51 POC Glucose 176 mg/dL (70-99) H 12/16/18 07:50 314 (280-300) H 12/16/18 06:51 Phosphorus 6.4 mg/dL (2.7-4.5) H 12/14/18 18:53 0.3 mg/dL (0.0-0.2) H 12/14/18 18:53 Cloudy (Clear) A 12/15/18 03:40 8.5 pH Units (5.0-8.0) H 12/15/18 03:40 30 mg/dL (Neg-Trace) H 12/15/18 03:40 >=160 mg/dL (Negative) H 12/15/18 03:40 Moderate (Negative) H 12/15/18 03:40 Small (Negative) H 12/15/18 03:40 Ur Leukocyte Esterase Small (Negative) H 12/15/18 03:40 50-100 per hpf (0-3) H 12/15/18 03:40 15-30 per hpf (0-3) H 12/15/18 03:40 Ur Squamous Epith Cells Many per lpf (None-Few) H 12/15/18 03:40 Hyaline Casts Moderate per lpf (None-Few) H 12/15/18 03:40 Positive (Negative) A 12/15/18 12:15 Vancomycin Trough 15 mcg/mL (5-10) H 12/16/18 06:51 - Microbiology Findings Microbiology Findings: Microbiology, Last 48 Hours 12/15/18 03:40 Sputum Culture - Preliminary Sputum 12/15/18 03:40 Legionella Antigen - Final Urine,Clean Catch Streptococcus pneumoniae Antigen (M - Final 12/14/18 18:33 Blood Culture - Preliminary Peripheral Venipuncture Culture is incubating and being continuously monitored for growth. Final report to follow. 12/14/18 18:33 Blood Culture - Preliminary Peripheral Venipuncture Culture is incubating and being continuously monitored for growth. Final report to follow. - Clinical Findings Intake & Output: Intake & Output 12/15/18 12/16/18 12/16/18 23:59 07:59 15:59 Intake Total 1232 / 2688 756 / 756 Output Total 400 / 1825 380 / 530 150 / 530 Balance 832 / 863 376 / 226 -150 / 226 Weight 188.6 kg Consult Discharge Plan - Plan Referrals: Jay Cool MD [Primary Care Provider] - <Chip Cornejo M - Last Filed: 12/17/18 08:12> Date of Encounter: 12/16/18 Objective PUL Vital signs: Last Vital Signs Temp 98.2 F 12/16/18 08:39 Pulse 83 12/16/18 08:00 Resp 14 12/16/18 08:40 BP 120/74 12/16/18 08:40 Pulse Ox 94 12/16/18 08:40 Ventilator Settings Ventilator Settings: Ventilator Settings, Last 8 Hours Ventilator Tidal Volume 550 Setting Ventilator Tidal Volume 550 Setting Ventilator Tidal Volume 550 Setting Ventilator Tidal Volume 550 Setting Ventilator Tidal Volume 550 Setting Ventilator Tidal Volume 550 Setting Ventilator Tidal Volume 550 Setting Ventilator Respiratory Rate 12 Setting Ventilator Respiratory Rate 12 Setting Ventilator Respiratory Rate 12 Setting Ventilator Respiratory Rate 12 Setting Ventilator Respiratory Rate 12 Setting Ventilator Respiratory Rate 12 Setting Ventilator Respiratory Rate 12 Setting Actual Respiratory Rate 15 Actual Respiratory Rate 12 Actual Respiratory Rate 15 Actual Respiratory Rate 12 Actual Respiratory Rate 12 Actual Respiratory Rate 12 Actual Respiratory Rate 12 Actual Respiratory Rate 12 Actual Respiratory Rate 12 Positive End Expiratory 5 Pressure Positive End Expiratory 5 Pressure Positive End Expiratory 5 Pressure Positive End Expiratory 5 Pressure Positive End Expiratory 5 Pressure Positive End Expiratory 5 Pressure Positive End Expiratory 5 Pressure Positive End Expiratory 5 Pressure Positive End Expiratory 5 Pressure Positive End Expiratory 5 Pressure Peak Inspiratory Airway 15 Pressure Peak Inspiratory Airway 15 Pressure Peak Inspiratory Airway 13 Pressure Peak Inspiratory Airway 29 Pressure Peak Inspiratory Airway 29 Pressure Peak Inspiratory Airway 31 Pressure Peak Inspiratory Airway 32 Pressure Peak Inspiratory Airway 32 Pressure Peak Inspiratory Airway 31 Pressure Results - Laboratory Findings CBC and BMP: 12/17/18 02:58 12/17/18 02:58 ABG ABG pH 7.45 pH Units (7.32-7.45) 12/16/18 04:42 ABG pCO2 77 mmHg (35-45) H* 12/16/18 04:42 ABG pO2 67 mmHg (85-104) L 12/16/18 04:42 ABG O2 Saturation 92 % (95-98) L 12/16/18 04:42 PT/INR, D-dimer PT 41.6 Seconds (9.4-12.1) H 12/16/18 06:51 Abnormal lab findings: Abnormal lab results RBC 3.75 M/mcL (4.19-5.50) L 12/16/18 06:51 Hgb 9.2 g/dL (12.9-16.9) L 12/16/18 06:51 Hct 34.5 % (37.5-50.1) L 12/16/18 06:51 MCH 24.5 pg (28.0-33.3) L 12/16/18 06:51 MCHC 26.7 g/dL (31.6-35.5) L 12/16/18 06:51 RDW 15.5 % (11.5-14.5) H 12/16/18 06:51 10.2 K/mcL (1.6-8.9) H 12/16/18 06:51 0.3 K/mcL (0.6-4.6) L 12/16/18 06:51 Present (Not Present) A 12/16/18 06:51 1+ (Not Present) A 12/15/18 00:43 1+ (Not Present) A 12/15/18 00:43 2+ (Not Present) A 12/15/18 00:43 PT 41.6 Seconds (9.4-12.1) H 12/16/18 06:51 ABG pH 7.07 pH Units (7.32-7.45) L* 12/14/18 17:59 ABG pCO2 77 mmHg (35-45) H* 12/16/18 04:42 ABG pO2 67 mmHg (85-104) L 12/16/18 04:42 ABG HCO3 54 mEq/L (21-27) H 12/16/18 04:42 ABG Total CO2 > 50 mEq/L (20-26) H 12/16/18 04:42 ABG O2 Saturation 92 % (95-98) L 12/16/18 04:42 ABG Base Excess 25 mEq/L (-2 to 3) H 12/16/18 04:42 Sodium 146 mEq/L (136-145) H 12/16/18 06:51 Potassium 5.5 mEq/L (3.5-5.1) H 12/14/18 18:53 Chloride 92 mEq/L (98-107) L 12/16/18 06:51 Carbon Dioxide > 45 mEq/L (23-29) H* 12/16/18 06:51 BUN 31 mg/dL (6-20) H 12/16/18 06:51 0.64 mg/dL (0.70-1.30) L 12/16/18 06:51 48 (6-26) H 12/16/18 06:51 Glucose 197 mg/dL (70-105) H 12/16/18 06:51 POC Glucose 176 mg/dL (70-99) H 12/16/18 07:50 314 (280-300) H 12/16/18 06:51 Phosphorus 6.4 mg/dL (2.7-4.5) H 12/14/18 18:53 0.3 mg/dL (0.0-0.2) H 12/14/18 18:53 Cloudy (Clear) A 12/15/18 03:40 8.5 pH Units (5.0-8.0) H 12/15/18 03:40 30 mg/dL (Neg-Trace) H 12/15/18 03:40 >=160 mg/dL (Negative) H 12/15/18 03:40 Moderate (Negative) H 12/15/18 03:40 Small (Negative) H 12/15/18 03:40 Ur Leukocyte Esterase Small (Negative) H 12/15/18 03:40 50-100 per hpf (0-3) H 12/15/18 03:40 15-30 per hpf (0-3) H 12/15/18 03:40 Ur Squamous Epith Cells Many per lpf (None-Few) H 12/15/18 03:40 Hyaline Casts Moderate per lpf (None-Few) H 12/15/18 03:40 Positive (Negative) A 12/15/18 12:15 Vancomycin Trough 15 mcg/mL (5-10) H 12/16/18 06:51 - Microbiology Findings Microbiology Findings: Microbiology, Last 48 Hours 12/15/18 03:40 Sputum Culture - Preliminary Sputum 12/15/18 03:40 Legionella Antigen - Final Urine,Clean Catch Streptococcus pneumoniae Antigen (M - Final 12/14/18 18:33 Blood Culture - Preliminary Peripheral Venipuncture Culture is incubating and being continuously monitored for growth. Final report to follow. 12/14/18 18:33 Blood Culture - Preliminary Peripheral Venipuncture Culture is incubating and being continuously monitored for growth. Final report to follow. - Clinical Findings Intake & Output: Intake & Output 12/15/18 12/16/18 12/16/18 23:59 07:59 15:59 Intake Total 1232 / 2688 756 / 756 Output Total 400 / 1825 380 / 530 150 / 530 Balance 832 / 863 376 / 226 -150 / 226 Weight 188.6 kg - Attending Attestation I examined this patient and my medical decision-making was reviewed with the Resident Physician. I agree with the documented findings, disposition and treatment plan as described except to the extent set forth below. Patient seen and examined. Labs, radiology, chart personally reviewed. Agree with resident's history and physical, assessment, plan with following comments: ALLERGY NURSE: Patient follows commands, patient is more awake and stronger today. Pulmonary: Acceptable oxygenation and ventilation and reviewed his ABG which had some evidence of rebound metabolic alkalosis from correction of his chronic hypercapnia and even though the patient is a high risk for reintubation because of his morbid obesity as well as chronic respiratory failure, we will extubate him to BiPAP and hopefully would be compliance as outpatient. I still feel patient with his morbid obesity is a major risk for his chronic respiratory failure. We will keep a close eye and patient today ICU and remained stable then can be transferred to ICU. Cardiovascular: stable and gentle diuresis. GI: Nutrition per dietary and GI prophylaxis per routine Heme: DVT prophylaxis per routine ID: Continue antibiotics and plan to de-escalation Renal; urine out put and renal function reviewed Endorcine: blood glucose is monitored Lines: all lines checked and no evidence of infections Skin: skin care to prevent pressure ulcers per nursing routine care Dispo: ICU Code: Full. Prognosis. Overall his poor as long as he has major comorbidity such as morbid obesity. I spent 35 min of Critical Care time with this patient. It involved decision making of high complexity to assess, manipulate, and support vital organ system failure and/or to prevent further life threatening deterioration of the patient's condition. The time involved in the performance of separately reportable procedures was not counted toward critical care time.
[2018-12-16] MEDS ORDERED: Warfarin perPT PO PRN (13:52)
[2018-12-16] MEDS: Budesonide/Formoterol 80/4.5 MDI IH SCH ×2 (16:01→21:09)
[2018-12-17] MEDS: methylPREDNISolone 125 MG/2 ML VIAL IVP SCH ×2 (00:20→08:29)
[2018-12-17] MEDS: Artificial Tears SOLN 15 ML BOTTLE BOTH EYES SCH ×3 (00:20→08:29)
[2018-12-17] MEDS: Piperacillin/Tazobactam 3.375 GM in 0.9 % Sodium Chloride Mini Bag 100 ML IVPB SCH ×2 (00:20→08:29)
[2018-12-17] MEDS: Insulin LISPRO 300 UNITS/3 ML VIAL SQ SCH ×3 (00:23→12:50)
[2018-12-17 03:21] LABS: Basophils % 0.1 %; Hemoglobin 10.1 g/dL (12.9-16.9); Lymphocytes % 3.4 %; Mean Corpuscular Hemoglobin 24.6 pg (28.0-33.3)
[2018-12-17 03:22] LABS: Hematocrit 37.5 % (37.5-50.1); Immature Granulocytes % 0.5 % (0-4); Lymphocytes # 0.4 K/mcL (0.6-4.6); Mean Corpuscular HGB Conc 26.9 g/dL (31.6-35.5); Mean Corpuscular Volume 91.2 fL (83.0-100.0); Mean Platelet Volume 9.7 fL (9.4-12.4); Monocytes # 0.6 K/mcL (0.0-1.3); Monocytes % 5.4 %; Platelet Count 199 K/mcL (140-400); Red Blood Count 4.11 M/mcL (4.19-5.50); Red Cell Distribution Width 15.5 % (11.5-14.5); Segmented Neutrophils % 90.6 %; White Blood Count 11.3 K/mcL (4.3-11.1)
[2018-12-17 03:29] LABS: INR 4.4; Prothrombin Time 49.6 Seconds (9.4-12.1)
[2018-12-17 03:32] LABS: Neutrophils # 10.2 K/mcL (1.6-8.9)
[2018-12-17 03:39] LABS: BUN/Creatinine Ratio 40 (6-26); Blood Urea Nitrogen 29 mg/dL (6-20); Carbon Dioxide > 45 mEq/L (23-29); Chloride 89 mEq/L (98-107); Glucose 132 mg/dL (70-105); Osmolality,Calculated 306 (280-300); Sodium 144 mEq/L (136-145); eGFR For African Americans > 60 (> 60); eGFR For Non-African Americans > 60 (> 60)
[2018-12-17] MEDS: Ipratropium/Albuterol Neb 3 ML IH SCH ×4 (03:44→22:31)
[2018-12-17 04:08] LABS: Hypochromasia Present (Not Present); Platelet Estimate Normal (Normal)
--- NOTE | 2018-12-17 08:02 | Pulmonology Progress Note ---
<AndreiYoAlec A - Last Filed: 12/17/18 16:18> Date of Encounter: 12/17/18 Time of Encounter: 07:00 Assessment and Plan (1) Acute respiratory failure with hypercapnia Current Visit: Yes Status: Acute Patient has history of severe COPD with multiple hospitalizations and intubations Known noncompliance for BiPAP and oxygen at home He was recently discharged from [facility] at the end of October for a similar COPD exacerbation Presented to [facility] in acute respiratory distress, was intubated and transferred to ICU This acute respiratory failure is likely secondary to COPD exacerbation with a component of heart failure exacerbation ABG before and after intubation consistent with acute respiratory acidosis On chart review patient has baseline acidic pH. The patient has adjusted to a baseline acidic pH and at normal pH becomes apneic Vent settings were changed to allow for a mild respiratory acidosis Successfully extubated to BiPAP on 12/16/18 Currently saturating and ventilating appropriately on BiPAP Procalcitonin from this morning was 0.05, antibiotics were subsequently de- escalated to vancomycin since patient has positive MRSA nasal swab and preliminary sputum culture positive for Staphylococcus species Systemic glucocorticoids were de-escalated to 40 mg Solu-Medrol twice a day Continue scheduled DuoNeb's Patient stable for transfer out of ICU. Discussed patient's case with hospitalist, Dr Ovalle, who accepted the patient. (2) Acute exacerbation of chronic obstructive airways disease Current Visit: Yes Status: Acute Plan as above (3) Acute heart failure with normal ejection fraction Current Visit: Yes Status: Acute Continue diuresis with 40 mg IV Lasix twice a day Patient continues to make adequate urine with uop today of 3100mL at this time Fluid restricted diet. Limit salt intake. (4) Atrial fibrillation Current Visit: Yes Status: Chronic Currently rate and rhythm controlled On warfarin at home continue with pharmacy dosing Qualifiers: Atrial fibrillation type: paroxysmal Qualified Code(s): I48.0 - Paroxysmal atrial fibrillation (5) Hyperglycemia Current Visit: Yes Status: Acute Diabetic diet Continue low-dose sliding scale insulin ACHS (6) GAVIN (obstructive sleep apnea) Current Visit: Yes Status: Chronic Known noncompliance with BiPAP Continue at night and when necessary (7) Hypoventilation associated with obesity syndrome Current Visit: Yes Status: Chronic Chronic issue (8) Morbid obesity due to excess calories Current Visit: Yes Status: Chronic Chronic issue Subjective Principal diagnosis: Acute respiratory failure Interval history: Patient seen and examined at bedside. No acute events overnight. Tolerating BiPAP. Denies any pain. States his shortness of breath remains grossly unchanged Objective PUL Vital signs: Last Vital Signs Temp 98.2 F 12/17/18 04:20 Pulse 69 12/17/18 07:00 Resp 17 12/17/18 07:00 BP 153/88 12/17/18 07:00 Pulse Ox 95 12/17/18 07:00 General appearance: no acute distress, alert Eyes: nonicteric ENT: oropharynx moist Effort: normal Auscultation: bilateral: diminished breath sounds Cardiovascular: regular rate and rhythm Gastrointestinal: soft, non-tender, non-distended Extremities: no cyanosis, no edema, no clubbing, pulses normal, other (Chronic venous stasis changes of lower extremities) Musculoskeletal: no deformities normal mental status, non-focal exam, pupils equal and round mood appropriate, affect normal Results - Laboratory Findings CBC and BMP: 12/17/18 02:58 12/17/18 02:58 ABG ABG pH 7.45 pH Units (7.32-7.45) 12/16/18 04:42 ABG pCO2 77 mmHg (35-45) H* 12/16/18 04:42 ABG pO2 67 mmHg (85-104) L 12/16/18 04:42 ABG O2 Saturation 92 % (95-98) L 12/16/18 04:42 PT/INR, D-dimer PT 49.6 Seconds (9.4-12.1) H* 12/17/18 02:58 Abnormal lab findings: Abnormal lab results WBC 11.3 K/mcL (4.3-11.1) H 12/17/18 02:58 RBC 4.11 M/mcL (4.19-5.50) L 12/17/18 02:58 Hgb 10.1 g/dL (12.9-16.9) L 12/17/18 02:58 Hct 34.5 % (37.5-50.1) L 12/16/18 06:51 MCH 24.6 pg (28.0-33.3) L 12/17/18 02:58 MCHC 26.9 g/dL (31.6-35.5) L 12/17/18 02:58 RDW 15.5 % (11.5-14.5) H 12/17/18 02:58 10.2 K/mcL (1.6-8.9) H 12/17/18 02:58 0.4 K/mcL (0.6-4.6) L 12/17/18 02:58 Present (Not Present) A 12/17/18 02:58 1+ (Not Present) A 12/15/18 00:43 1+ (Not Present) A 12/15/18 00:43 2+ (Not Present) A 12/15/18 00:43 PT 49.6 Seconds (9.4-12.1) H* 12/17/18 02:58 INR 4.4 H* 12/17/18 02:58 ABG pH 7.07 pH Units (7.32-7.45) L* 12/14/18 17:59 ABG pCO2 77 mmHg (35-45) H* 12/16/18 04:42 ABG pO2 67 mmHg (85-104) L 12/16/18 04:42 ABG HCO3 54 mEq/L (21-27) H 12/16/18 04:42 ABG Total CO2 > 50 mEq/L (20-26) H 12/16/18 04:42 ABG O2 Saturation 92 % (95-98) L 12/16/18 04:42 ABG Base Excess 25 mEq/L (-2 to 3) H 12/16/18 04:42 Sodium 146 mEq/L (136-145) H 12/16/18 06:51 Potassium 5.5 mEq/L (3.5-5.1) H 12/14/18 18:53 Chloride 89 mEq/L (98-107) L 12/17/18 02:58 Carbon Dioxide > 45 mEq/L (23-29) H* 12/17/18 02:58 BUN 29 mg/dL (6-20) H 12/17/18 02:58 0.64 mg/dL (0.70-1.30) L 12/16/18 06:51 40 (6-26) H 12/17/18 02:58 Glucose 132 mg/dL (70-105) H 12/17/18 02:58 POC Glucose 126 mg/dL (70-99) H 12/17/18 06:14 306 (280-300) H 12/17/18 02:58 Phosphorus 6.4 mg/dL (2.7-4.5) H 12/14/18 18:53 0.3 mg/dL (0.0-0.2) H 12/14/18 18:53 Cloudy (Clear) A 12/15/18 03:40 8.5 pH Units (5.0-8.0) H 12/15/18 03:40 30 mg/dL (Neg-Trace) H 12/15/18 03:40 >=160 mg/dL (Negative) H 12/15/18 03:40 Moderate (Negative) H 12/15/18 03:40 Small (Negative) H 12/15/18 03:40 Ur Leukocyte Esterase Small (Negative) H 12/15/18 03:40 50-100 per hpf (0-3) H 12/15/18 03:40 15-30 per hpf (0-3) H 12/15/18 03:40 Ur Squamous Epith Cells Many per lpf (None-Few) H 12/15/18 03:40 Hyaline Casts Moderate per lpf (None-Few) H 12/15/18 03:40 Positive (Negative) A 12/15/18 12:15 Vancomycin Trough 15 mcg/mL (5-10) H 12/16/18 06:51 - Microbiology Findings Microbiology Findings: Microbiology, Last 48 Hours 12/15/18 03:40 Sputum Culture - Preliminary Sputum 12/15/18 03:40 Legionella Antigen - Final Urine,Clean Catch Streptococcus pneumoniae Antigen (M - Final - Clinical Findings Intake & Output: Intake & Output 12/16/18 12/17/18 12/17/18 23:59 07:59 15:59 Intake Total 890 / 2246 200 / 200 Output Total 375 / 2205 1800 / 1800 Balance 515 / 41 -1600 / -1600 Weight 188.9 kg Consult Discharge Plan - Plan Referrals: Jay Cool MD [Primary Care Provider] - <Doris Curtis - Last Filed: 12/17/18 20:03> Date of Encounter: 12/17/18 Objective PUL Vital signs: Last Vital Signs Temp 98.1 F 12/17/18 16:46 Pulse 77 12/17/18 17:00 Resp 18 12/17/18 17:00 BP 145/81 06/17/19 17:00 Pulse Ox 97 12/17/18 17:00 Results - Laboratory Findings CBC and BMP: 12/17/18 02:58 12/17/18 02:58 ABG ABG pH 7.36 pH Units (7.32-7.45) 12/17/18 09:19 ABG pCO2 89 mmHg (35-45) H* 12/17/18 09:19 ABG pO2 63 mmHg (85-104) L 12/17/18 09:19 ABG O2 Saturation 88 % (95-98) L 12/17/18 09:19 PT/INR, D-dimer PT 49.6 Seconds (9.4-12.1) H* 12/17/18 02:58 Abnormal lab findings: Abnormal lab results WBC 11.3 K/mcL (4.3-11.1) H 12/17/18 02:58 RBC 4.11 M/mcL (4.19-5.50) L 12/17/18 02:58 Hgb 10.1 g/dL (12.9-16.9) L 12/17/18 02:58 Hct 34.5 % (37.5-50.1) L 12/16/18 06:51 MCH 24.6 pg (28.0-33.3) L 12/17/18 02:58 MCHC 26.9 g/dL (31.6-35.5) L 12/17/18 02:58 RDW 15.5 % (11.5-14.5) H 12/17/18 02:58 10.2 K/mcL (1.6-8.9) H 12/17/18 02:58 0.4 K/mcL (0.6-4.6) L 12/17/18 02:58 Present (Not Present) A 12/17/18 02:58 1+ (Not Present) A 12/15/18 00:43 1+ (Not Present) A 12/15/18 00:43 2+ (Not Present) A 12/15/18 00:43 PT 49.6 Seconds (9.4-12.1) H* 12/17/18 02:58 INR 4.4 H* 12/17/18 02:58 ABG pH 7.07 pH Units (7.32-7.45) L* 12/14/18 17:59 ABG pCO2 89 mmHg (35-45) H* 12/17/18 09:19 ABG pO2 63 mmHg (85-104) L 12/17/18 09:19 ABG HCO3 50 mEq/L (21-27) H 12/17/18 09:19 ABG Total CO2 > 50 mEq/L (20-26) H 12/17/18 09:19 ABG O2 Saturation 88 % (95-98) L 12/17/18 09:19 ABG Base Excess 20 mEq/L (-2 to 3) H 12/17/18 09:19 Sodium 146 mEq/L (136-145) H 12/16/18 06:51 Potassium 5.5 mEq/L (3.5-5.1) H 12/14/18 18:53 Chloride 89 mEq/L (98-107) L 12/17/18 02:58 Carbon Dioxide > 45 mEq/L (23-29) H* 12/17/18 02:58 BUN 29 mg/dL (6-20) H 12/17/18 02:58 0.64 mg/dL (0.70-1.30) L 12/16/18 06:51 40 (6-26) H 12/17/18 02:58 Glucose 132 mg/dL (70-105) H 12/17/18 02:58 POC Glucose 158 mg/dL (70-99) H 12/17/18 17:28 306 (280-300) H 12/17/18 02:58 Phosphorus 6.4 mg/dL (2.7-4.5) H 12/14/18 18:53 0.3 mg/dL (0.0-0.2) H 12/14/18 18:53 Cloudy (Clear) A 12/15/18 03:40 8.5 pH Units (5.0-8.0) H 12/15/18 03:40 30 mg/dL (Neg-Trace) H 12/15/18 03:40 >=160 mg/dL (Negative) H 12/15/18 03:40 Moderate (Negative) H 12/15/18 03:40 Small (Negative) H 12/15/18 03:40 Ur Leukocyte Esterase Small (Negative) H 12/15/18 03:40 50-100 per hpf (0-3) H 12/15/18 03:40 15-30 per hpf (0-3) H 12/15/18 03:40 Ur Squamous Epith Cells Many per lpf (None-Few) H 12/15/18 03:40 Hyaline Casts Moderate per lpf (None-Few) H 12/15/18 03:40 Positive (Negative) A 12/15/18 12:15 Vancomycin Trough 15 mcg/mL (5-10) H 12/16/18 06:51 - Microbiology Findings Microbiology Findings: Microbiology, Last 48 Hours 12/15/18 03:40 Sputum Culture - Preliminary Sputum Gram Positive Cocci - Clinical Findings Intake & Output: Intake & Output 12/17/18 12/17/18 12/17/18 07:59 15:59 23:59 Intake Total 200 / 800 600 / 800 Output Total 1800 / 3425 1300 / 3425 325 / 3425 Balance -1600 / -2625 -700 / -2625 -325 / -2625 Weight 188.9 kg - Attending Attestation I saw and evaluated this patient and my medical decision-making was reviewed with the Resident Physician. I agree with the documented findings, disposition and treatment plan as described except to the extent set forth below. We independently had [id number] contact with the patient Patient seen and examined at bedside Labs, radiology, chart personally reviewed. Management was reviewed during multidisciplinary critical care rounds. 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 Pulm: Patient has acceptable oxygenation and ventilation Patient is acute on chronic hypoxic hypercapnic respiratory failure secondary to COPD, GAVIN, OHS, diastolic heart failure, sputum growing some gram-positive cocci to continue the Broad spectrum antibiotics. Cards: Patient is hemodynamically stable to start on home cardiac medication to continue diuresis complicated by acute on chronic diastolic heart failure. FEN-GI: Will advance diet as tolerated. Renal: Labs and output were reviewed we will follow the electrolytes closely. ID: Patient sputum growing gram-positive cocci to continue vancomycin. Heme/Onc: Labs reviewed Endo: Glucose Monitored Integ/MSK: Skin Care per routine ICU Nursing Protocol to prevent ulcers. Lines: All lines examined without evidence of infection : Dispo: can be transfer to CODE:Full Code
[2018-12-17] MEDS: Chlorhexidine Rinse 15 ML MOUTHWASH MM SCH (08:31)
[2018-12-17] MEDS: Pantoprazole 40 MG VIAL IVP SCH (08:31)
[2018-12-17] MEDS: Furosemide 40 MG/4 ML VIAL IVP SCH ×2 (08:31→21:22)
[2018-12-17 09:24] LABS: ABG Base Excess 20 mEq/L (-2 to 3); ABG HCO3 50 mEq/L (21-27); ABG Oxygen Saturation 88 % (95-98); ABG PCO2 89 mmHg (35-45); ABG PH 7.36 pH Units (7.32-7.45); ABG PO2 63 mmHg (85-104); ABG TCO2 > 50 mEq/L (20-26)
[2018-12-17] MEDS: Budesonide/Formoterol 80/4.5 MDI IH SCH ×2 (10:57→22:31)
[2018-12-17] MEDS ORDERED: Insulin LISPRO 300 UNITS/3 ML VIAL SQ SCH ×2 (17:00→21:00)
[2018-12-17] MEDS: MethylPREDNISolone 40 MG/ML VIAL IVP SCH (17:24)
[2018-12-17] MEDS ORDERED: Fluticasone Propionate Nasal 50 MCG/SPRAY BOTTLE NS SCH (21:00)
[2018-12-18] MEDS: Ipratropium/Albuterol Neb 3 ML IH SCH ×4 (03:52→23:07)
[2018-12-18 05:12] LABS: Immature Granulocytes % 0.5 % (0-4); Red Cell Distribution Width 15.4 % (11.5-14.5)
[2018-12-18 05:14] LABS: Basophils % 0.1 %; Hematocrit 36.5 % (37.5-50.1); Lymphocytes # 0.5 K/mcL (0.6-4.6); Lymphocytes % 5.6 %; Mean Corpuscular HGB Conc 27.4 g/dL (31.6-35.5); Mean Corpuscular Hemoglobin 24.1 pg (28.0-33.3); Mean Platelet Volume 9.6 fL (9.4-12.4); Monocytes # 1.1 K/mcL (0.0-1.3); Neutrophils # 6.8 K/mcL (1.6-8.9); Platelet Count 173 K/mcL (140-400); Red Blood Count 4.15 M/mcL (4.19-5.50); Segmented Neutrophils % 80.8 %; White Blood Count 8.4 K/mcL (4.3-11.1)
[2018-12-18 05:18] LABS: INR 3.1; Prothrombin Time 35.4 Seconds (9.4-12.1)
[2018-12-18] MEDS: MethylPREDNISolone 40 MG/ML VIAL IVP SCH ×2 (05:20→17:00)
[2018-12-18 05:41] LABS: Basophilic Stippling 1+ (Not Present); Hypochromasia Present (Not Present); Microcytosis Present (Not Present); Platelet Estimate Normal (Normal)
[2018-12-18 05:42] LABS: Stomatocytes 1+ (Not Present)
[2018-12-18 05:43] LABS: BUN/Creatinine Ratio 51 (6-26); Blood Urea Nitrogen 32 mg/dL (6-20); Calcium 8.6 mg/dL (8.6-10.3); Carbon Dioxide > 45 mEq/L (23-29); Chloride 94 mEq/L (98-107); Glucose 116 mg/dL (70-105); Osmolality,Calculated 304 (280-300); Potassium 3.7 mEq/L (3.5-5.1); Sodium 143 mEq/L (136-145); eGFR For African Americans > 60 (> 60); eGFR For Non-African Americans > 60 (> 60)
[2018-12-18] MEDS ORDERED: Warfarin perPT PO PRN (06:49)
[2018-12-18] MEDS ORDERED: D5% in Water 1,000 ML IVC PRN (06:49)
[2018-12-18] MEDS ORDERED: *HR* Dextrose 50 % in Water (Syg) 50 ML SYRINGE IVP PRN (06:49)
[2018-12-18] MEDS ORDERED: Naloxone 0.4 MG/ML INJ IVP PRN (06:49)
[2018-12-18] MEDS ORDERED: Dextrose Gel 15 GM/37.5 ML TUBE PO PRN ×2 (06:49)
[2018-12-18] MEDS: Insulin LISPRO 300 UNITS/3 ML VIAL SQ SCH ×4 (08:34→20:12)
[2018-12-18] MEDS ORDERED: Sennosides 8.6 MG TABLET PO SCH (09:00)
[2018-12-18] MEDS ORDERED: Multivit/Ca/Min/Fe/FA 1 TAB TABLET PO SCH (09:00)
[2018-12-18] MEDS ORDERED: rOPINIRole 1 MG TABLET PO SCH (09:00)
[2018-12-18] MEDS: rOPINIRole 1 MG TABLET PO SCH (09:06)
[2018-12-18] MEDS: Sennosides 8.6 MG TABLET PO SCH (09:06)
[2018-12-18] MEDS: *HR* Amiodarone 200 MG TABLET PO SCH (09:07)
[2018-12-18] MEDS: Fluticasone Propionate Nasal 50 MCG/SPRAY BOTTLE NS SCH ×2 (09:08→20:11)
[2018-12-18] MEDS: Multivit/Ca/Min/Fe/FA 1 TAB TABLET PO SCH (09:09)
[2018-12-18] MEDS: Pantoprazole 40 MG VIAL IVP SCH (09:09)
[2018-12-18] MEDS: Furosemide 40 MG/4 ML VIAL IVP SCH ×2 (09:21→17:00)
[2018-12-18] MEDS: Budesonide/Formoterol 80/4.5 MDI IH SCH ×2 (10:06→23:08)
[2018-12-18] MEDS ORDERED: *HR* Warfarin 3 MG TABLET PO ONE (18:00)
[2018-12-19 01:54] LABS: INR 2.5; Prothrombin Time 28.8 Seconds (9.4-12.1)
[2018-12-19] MEDS: Ipratropium/Albuterol Neb 3 ML IH SCH ×4 (04:42→22:32)
[2018-12-19] MEDS: MethylPREDNISolone 40 MG/ML VIAL IVP SCH ×2 (05:06→16:51)
[2018-12-19] MEDS: rOPINIRole 1 MG TABLET PO SCH (07:59)
[2018-12-19] MEDS: Multivit/Ca/Min/Fe/FA 1 TAB TABLET PO SCH (07:59)
[2018-12-19] MEDS: *HR* Amiodarone 200 MG TABLET PO SCH (07:59)
[2018-12-19] MEDS: Insulin LISPRO 300 UNITS/3 ML VIAL SQ SCH ×4 (08:00→21:37)
[2018-12-19] MEDS: Sennosides 8.6 MG TABLET PO SCH (08:00)
[2018-12-19] MEDS: Furosemide 40 MG/4 ML VIAL IVP SCH (08:00)
[2018-12-19] MEDS: Pantoprazole 40 MG VIAL IVP SCH (08:00)
[2018-12-19] MEDS: Fluticasone Propionate Nasal 50 MCG/SPRAY BOTTLE NS SCH ×2 (08:09→20:51)
[2018-12-19 09:01] LABS: Basophils % 0.1 %; Hematocrit 38.4 % (37.5-50.1); Hemoglobin 10.4 g/dL (12.9-16.9); Immature Granulocytes % 0.4 % (0-4); Lymphocytes # 0.3 K/mcL (0.6-4.6); Lymphocytes % 4.6 %; Mean Corpuscular HGB Conc 27.1 g/dL (31.6-35.5); Mean Corpuscular Volume 88.7 fL (83.0-100.0); Mean Platelet Volume 9.7 fL (9.4-12.4); Monocytes # 0.3 K/mcL (0.0-1.3); Monocytes % 3.5 %; Neutrophils # 6.5 K/mcL (1.6-8.9); Platelet Count 148 K/mcL (140-400); Red Blood Count 4.33 M/mcL (4.19-5.50); Red Cell Distribution Width 14.9 % (11.5-14.5); Segmented Neutrophils % 91.4 %; White Blood Count 7.1 K/mcL (4.3-11.1)
[2018-12-19 09:28] LABS: Platelet Estimate Normal (Normal)
[2018-12-19 09:40] LABS: BUN/Creatinine Ratio 50 (6-26); Blood Urea Nitrogen 33 mg/dL (6-20); Calcium 8.8 mg/dL (8.6-10.3); Carbon Dioxide > 45 mEq/L (23-29); Chloride 88 mEq/L (98-107); Glucose 188 mg/dL (70-105); Magnesium 2.3 mg/dL (1.6-2.6); Osmolality,Calculated 310 (280-300); Phosphorous 2.9 mg/dL (2.7-4.5); Sodium 144 mEq/L (136-145); eGFR For African Americans > 60 (> 60); eGFR For Non-African Americans > 60 (> 60)
[2018-12-19] MEDS: Budesonide/Formoterol 80/4.5 MDI IH SCH ×2 (10:34→22:32)
--- NOTE | 2018-12-19 12:38 | Internal Med Progress Note ---
Hospitalist Progress Note - Encounter Date of Encounter: 12/19/18 Time of Encounter: 12:24 - Subjective Interval History: Brief Hospital course (12/19/18): Patient is a 58y/o male with hx of end stage COPD on home oxygen, CHF, morbid obesity, GAVIN on bipap support, Afib who was admitted to the ICU on 12/14/18 for acute on chronic respiratory failure secondary to COPD exacerbation with superimposed HCAP requiring intubation (12/14/18). Pt was started on IV steroids, IV abx, and IV diuretics as there was a concern for CHF exacerbation contributi ng to the acute respiratory failure. Pt was successfully extubated on 12/16/18 and transitioned to bipap support. Patient has been started on a steroid taper and is transferred to on 12/18/18. Patient was recently discharged from [facility] a day prior to his arrival to [facility]. 12/18/18: Patient was seen and examined earlier this morning. He is resting comfortably in bed and saturating well on 5L NC. He is reported of being on 6L NC at home.Pt denies any cough, sob, or chest pain at this time. He is encouraged to get out of bed with assistance. Ten point ROS is negative except as listed above - Exam Vitals: Temp Pulse Resp BP Pulse Ox 98.6 F 78 18 119/91 90 12/19/18 11:19 12/19/18 11:19 12/19/18 11:19 12/19/18 11:19 12/19/18 11:19 Exam: General: No acute distress, AAO x 3, Morbidly obese HEENT: EOMI, PERRLA, NC/AT, no scleral icterus Respiratory: Diminished breath sounds, no wheezing, no rales Cardiovascular: Regular, Rate, Rhythm, No murmurs GI: Soft, Non tender, non distended, normal bowel sounds Ext: chronic venous stasis and stasis dermatitis in bilateral lower extremities, no tenderness, positive pulses Neuro: AAO x 3, no focal deficits Rest of the clinical exam is noncontributory - Assessment and Plan (1) Acute exacerbation of chronic obstructive airways disease Current Visit: Yes Status: Acute (2) Atrial fibrillation Current Visit: Yes Status: Chronic (3) Acute respiratory failure with hypercapnia Current Visit: Yes Status: Acute (4) GAVIN (obstructive sleep apnea) Current Visit: Yes Status: Chronic (5) Hypoventilation associated with obesity syndrome Current Visit: Yes Status: Chronic (6) Morbid obesity due to excess calories Current Visit: Yes Status: Chronic (7) Hyperglycemia Current Visit: Yes Status: Acute (8) Acute heart failure with normal ejection fraction Current Visit: Yes Status: Acute - Summary of Assessment and Plan Summary of Assessment and Plan: Patient is a 58y/o male with hx of end stage COPD on home oxygen, CHF, morbid obesity, GAVIN on bipap support, Afib who was admitted to the ICU on 12/14/18 for acute on chronic respiratory failure secondary to COPD exacerbation with superimposed HCAP requiring intubation (12/14/18). Pt was started on IV steroids, IV abx, and IV diuretics as there was a concern for CHF exacerbation contributing to the acute respiratory failure. Pt was successfully extubated on 12/16/18 and transitioned to bipap support. Patient has been started on a steroid taper and is transferred to on 12/18/18. Patient was recently discharged from [facility] a day prior to his arrival to [facility]. Assessment/Plan: 1. Acute on chronic respiratory failure with hypoxia and hypercapnia likely secondary to COPD exacerbation with superimposed HCAP (left lung base consolidation) and CHF exacerbation Clinically improving continue O2 supplementation and bipap support bipap during the day while napping continue IV Solumedrol 40mg IV q12h at this time pt finished abx therapy continue bronchodilator support will d/c IV diuresis and restart home dose of lasix (40mg PO BID) closely monitor daily weight, strict I/Os maintain fluid restriction diet Pt encouraged to get out of bed to chair with assistance will obtain PT evaluation 2. DM Type II continue sliding scale insulin algorithm monitor fingerstick and blood glucose ADA diet 3. Afib rate controlled with BB anticoagulated with coumadin pharmacist to dose coumadin, goal INR: 2-3, will continue to monitor 4. Hx of Obesity hypoventilation syndrome continue bipap support at this time 5. DVT ppx: anticoagulated with coumadin Care plan discussed with patient/RN/pharmacist/case management. - Time Spent with Patient Total time spent is greater than 50% in coordination of care (as documented) at patient's floor/unit and/or counseling patient: Internal Medicine: Result - Labs CBC & Chem 7: 12/19/18 08:40 12/19/18 08:40 Labs: Short CBC 12/19/18 Range/Units 08:40 WBC 7.1 (4.3-11.1) K/mcL Hgb 10.4 L (12.9-16.9) g/dL Hct 38.4 (37.5-50.1) % Plt Count 148 (140-400) K/mcL Neutrophils # 6.5 (1.6-8.9) K/mcL BMP 12/19/18 08:40 Sodium 144 Potassium 4.0 Chloride 88 L Carbon Dioxide > 45 H* BUN 33 H Creatinine 0.66 L Glucose 188 H Calcium 8.8 - ABG Interpretation ABG results: ABG ABG pH 7.36 pH Units (7.32-7.45) 12/17/18 09:19 ABG pCO2 89 mmHg (35-45) H* 12/17/18 09:19 ABG pO2 63 mmHg (85-104) L 12/17/18 09:19 ABG O2 Saturation 88 % (95-98) L 12/17/18 09:19 PT/INR, D-dimer PT 28.8 Seconds (9.4-12.1) H 12/19/18 01:30 Consult Discharge Plan - Plan Referrals: Jay Cool MD [Non-Partnered Physician] - 12/31/18 11:30 am (2) Atrial fibrillation Qualifiers: Atrial fibrillation type: paroxysmal Qualified Code(s): I48.0 - Paroxysmal atrial fibrillation
[2018-12-19] MEDS ORDERED: *HR* Warfarin 4 MG TABLET PO ONE (18:00)
[2018-12-19] MEDS: Furosemide 40 MG TABLET PO SCH (20:51)
[2018-12-20] MEDS: Ipratropium/Albuterol Neb 3 ML IH SCH ×4 (03:52→21:33)
[2018-12-20] MEDS: MethylPREDNISolone 40 MG/ML VIAL IVP SCH ×2 (05:02→17:14)
[2018-12-20 06:52] LABS: Eosinophils % 0.2 %; Immature Granulocytes % 0.3 % (0-4)
[2018-12-20 06:54] LABS: Hematocrit 37.2 % (37.5-50.1); Hemoglobin 10.3 g/dL (12.9-16.9); Lymphocytes # 0.6 K/mcL (0.6-4.6); Lymphocytes % 6.5 %; Mean Corpuscular HGB Conc 27.7 g/dL (31.6-35.5); Mean Corpuscular Hemoglobin 24.4 pg (28.0-33.3); Mean Corpuscular Volume 88.2 fL (83.0-100.0); Mean Platelet Volume 9.8 fL (9.4-12.4); Monocytes # 0.9 K/mcL (0.0-1.3); Monocytes % 10.1 %; Neutrophils # 7.7 K/mcL (1.6-8.9); Platelet Count 159 K/mcL (140-400); Red Blood Count 4.22 M/mcL (4.19-5.50); Red Cell Distribution Width 15.1 % (11.5-14.5); Segmented Neutrophils % 82.9 %; White Blood Count 9.3 K/mcL (4.3-11.1)
[2018-12-20 07:05] LABS: INR 2.9; Prothrombin Time 33.5 Seconds (9.4-12.1)
[2018-12-20 08:11] LABS: BUN/Creatinine Ratio 47 (6-26); Blood Urea Nitrogen 26 mg/dL (6-20); Calcium 8.8 mg/dL (8.6-10.3); Carbon Dioxide > 45 mEq/L (23-29); Chloride 88 mEq/L (98-107); Glucose 116 mg/dL (70-105); Magnesium 2.2 mg/dL (1.6-2.6); Osmolality,Calculated 306 (280-300); Phosphorous 2.4 mg/dL (2.7-4.5); Potassium 3.7 mEq/L (3.5-5.1); Sodium 145 mEq/L (136-145); eGFR For African Americans > 60 (> 60); eGFR For Non-African Americans > 60 (> 60)
[2018-12-20 08:13] LABS: Hypochromasia Present (Not Present); Platelet Estimate Normal (Normal)
[2018-12-20] MEDS: Insulin LISPRO 300 UNITS/3 ML VIAL SQ SCH ×4 (08:16→20:59)
[2018-12-20] MEDS: Sennosides 8.6 MG TABLET PO SCH (08:17)
[2018-12-20] MEDS: Pantoprazole 40 MG VIAL IVP SCH (08:17)
[2018-12-20] MEDS: rOPINIRole 1 MG TABLET PO SCH ×2 (08:17→15:34)
[2018-12-20] MEDS: Multivit/Ca/Min/Fe/FA 1 TAB TABLET PO SCH (08:17)
[2018-12-20] MEDS: Furosemide 40 MG TABLET PO SCH ×2 (08:18→20:58)
[2018-12-20] MEDS: *HR* Amiodarone 200 MG TABLET PO SCH (08:18)
[2018-12-20] MEDS: Fluticasone Propionate Nasal 50 MCG/SPRAY BOTTLE NS SCH ×2 (08:18→20:58)
[2018-12-20] MEDS: Budesonide/Formoterol 80/4.5 MDI IH SCH ×2 (10:53→21:33)
--- NOTE | 2018-12-20 11:48 | Internal Med Progress Note ---
Hospitalist Progress Note - Encounter Date of Encounter: 12/20/18 Time of Encounter: 11:46 - Subjective Interval History: Patient seen and examined earlier today. Resting in chair, saturating well on 4L NC. Pt states at home he was always saturating 100% on 6L NC, pt educated that his goal O2 saturation is 88-92% and he can wean down Oxygen therapy to maintain that O2 saturation. He denies any sob or chest pain at this time No overnight events reported Ten point ROS is negative except as listed above - Exam Vitals: Temp Pulse Resp BP Pulse Ox 98.5 F 76 19 140/71 95 12/20/18 11:19 12/20/18 11:19 12/20/18 11:19 12/20/18 11:19 12/20/18 11:19 Exam: General: No acute distress, AAO x 3, Morbidly obese HEENT: EOMI, PERRLA, NC/AT, no scleral icterus Respiratory: Diminished breath sounds, no wheezing, no rales Cardiovascular: Regular, Rate, Rhythm, No murmurs GI: Soft, Non tender, non distended, normal bowel sounds Ext: chronic venous stasis and stasis dermatitis in bilateral lower extremities, no tenderness, positive pulses Neuro: AAO x 3, no focal deficits Rest of the clinical exam is noncontributory - Assessment and Plan (1) Acute exacerbation of chronic obstructive airways disease Current Visit: Yes Status: Acute (2) Atrial fibrillation Current Visit: Yes Status: Chronic (3) Acute respiratory failure with hypercapnia Current Visit: Yes Status: Acute (4) GAVIN (obstructive sleep apnea) Current Visit: Yes Status: Chronic (5) Hypoventilation associated with obesity syndrome Current Visit: Yes Status: Chronic (6) Morbid obesity due to excess calories Current Visit: Yes Status: Chronic (7) Hyperglycemia Current Visit: Yes Status: Acute (8) Acute heart failure with normal ejection fraction Current Visit: Yes Status: Acute - Summary of Assessment and Plan Summary of Assessment and Plan: Patient is a 58y/o male with hx of end stage COPD on home oxygen, CHF, morbid obesity, GAVIN on bipap support, Afib who was admitted to the ICU on 12/14/18 for acute on chronic respiratory failure secondary to COPD exacerbation with superimposed HCAP requiring intubation (12/14/18). Pt was started on IV steroids, IV abx, and IV diuretics as there was a concern for CHF exacerbation contributin g to the acute respiratory failure. Pt was successfully extubated on 12/16/18 and transitioned to bipap support. Patient has been started on a steroid taper and is transferred to on 12/18/18. Patient was recently discharged from [facility] a day prior to his arrival to [facility]. Assessment/Plan: 1. Acute on chronic respiratory failure with hypoxia and hypercapnia likely secondary to COPD exacerbation with superimposed HCAP (left lung base consolidation) and CHF exacerbation Clinically improving continue O2 supplementation and bipap support bipap during the day while napping continue IV Solumedrol 40mg IV q12h at this time. Will switch to Prednisone 40mg PO qdaily in am. Pt will be started on a long steroid taper pt finished abx therapy continue bronchodilator support continue home dose of lasix (40mg PO BID) closely monitor daily weight, strict I/Os maintain fluid restriction diet Pt encouraged to get out of bed to chair with assistance PT evaluation requested 2. DM Type II continue sliding scale insulin algorithm monitor fingerstick and blood glucose ADA diet 3. Afib rate controlled with BB anticoagulated with coumadin pharmacist to dose coumadin, goal INR: 2-3, will continue to monitor 4. Hx of Obesity hypoventilation syndrome continue bipap support at this time 5. DVT ppx: anticoagulated with coumadin Care plan discussed with patient/RN/pharmacist/case management. - Time Spent with Patient Total time spent is greater than 50% in coordination of care (as documented) at patient's floor/unit and/or counseling patient: Internal Medicine: Result - Labs CBC & Chem 7: 12/20/18 06:31 12/20/18 06:31 Labs: Short CBC 12/20/18 Range/Units 06:31 WBC 9.3 (4.3-11.1) K/mcL Hgb 10.3 L (12.9-16.9) g/dL Hct 37.2 L (37.5-50.1) % Plt Count 159 (140-400) K/mcL Neutrophils # 7.7 (1.6-8.9) K/mcL BMP 12/20/18 06:31 Sodium 145 Potassium 3.7 Chloride 88 L Carbon Dioxide > 45 H* BUN 26 H Creatinine 0.55 L Glucose 116 H Calcium 8.8 - ABG Interpretation ABG results: ABG ABG pH 7.36 pH Units (7.32-7.45) 12/17/18 09:19 ABG pCO2 89 mmHg (35-45) H* 12/17/18 09:19 ABG pO2 63 mmHg (85-104) L 12/17/18 09:19 ABG O2 Saturation 88 % (95-98) L 12/17/18 09:19 PT/INR, D-dimer PT 33.5 Seconds (9.4-12.1) H 12/20/18 06:31 Consult Discharge Plan - Plan Referrals: Jay Cool MD [Non-Partnered Physician] - 12/31/18 11:30 am (2) Atrial fibrillation Qualifiers: Atrial fibrillation type: paroxysmal Qualified Code(s): I48.0 - Paroxysmal atrial fibrillation
[2018-12-20] MEDS ORDERED: *HR* Warfarin 1 MG TABLET PO ONE (18:00)
[2018-12-21 02:16] LABS: Basophils % 0.1 %; Hematocrit 38.1 % (37.5-50.1); Hemoglobin 10.7 g/dL (12.9-16.9); Immature Granulocytes % 0.4 % (0-4); Lymphocytes # 0.5 K/mcL (0.6-4.6); Lymphocytes % 5.4 %; Mean Corpuscular HGB Conc 28.1 g/dL (31.6-35.5); Mean Corpuscular Hemoglobin 24.6 pg (28.0-33.3); Mean Corpuscular Volume 87.6 fL (83.0-100.0); Monocytes # 0.6 K/mcL (0.0-1.3); Monocytes % 5.9 %; Neutrophils # 8.6 K/mcL (1.6-8.9); Platelet Count 161 K/mcL (140-400); Red Blood Count 4.35 M/mcL (4.19-5.50); Segmented Neutrophils % 88.2 %; White Blood Count 9.8 K/mcL (4.3-11.1)
[2018-12-21 02:24] LABS: INR 2.9; Prothrombin Time 33.5 Seconds (9.4-12.1)
[2018-12-21 02:39] LABS: BUN/Creatinine Ratio 39 (6-26); Blood Urea Nitrogen 23 mg/dL (6-20); Calcium 8.8 mg/dL (8.6-10.3); Carbon Dioxide > 45 mEq/L (23-29); Chloride 89 mEq/L (98-107); Glucose 158 mg/dL (70-105); Magnesium 2.1 mg/dL (1.6-2.6); Osmolality,Calculated 301 (280-300); Phosphorous 3.5 mg/dL (2.7-4.5); Potassium 4.2 mEq/L (3.5-5.1); Sodium 142 mEq/L (136-145); eGFR For African Americans > 60 (> 60); eGFR For Non-African Americans > 60 (> 60)
[2018-12-21 02:51] LABS: Hypochromasia Present (Not Present); Macrocytosis Present (Not Present); Platelet Estimate Normal (Normal)
[2018-12-21] MEDS: Ipratropium/Albuterol Neb 3 ML IH SCH ×4 (05:05→21:24)
[2018-12-21] MEDS: Insulin LISPRO 300 UNITS/3 ML VIAL SQ SCH ×4 (08:09→21:05)
[2018-12-21] MEDS: *HR* Amiodarone 200 MG TABLET PO SCH (08:15)
[2018-12-21] MEDS: Furosemide 40 MG TABLET PO SCH ×2 (08:15→21:03)
[2018-12-21] MEDS: Pantoprazole 40 MG VIAL IVP SCH (08:16)
[2018-12-21] MEDS: rOPINIRole 1 MG TABLET PO SCH (08:16)
[2018-12-21] MEDS: predniSONE 20 MG TABLET PO SCH (08:16)
[2018-12-21] MEDS: Fluticasone Propionate Nasal 50 MCG/SPRAY BOTTLE NS SCH ×2 (08:16→21:03)
[2018-12-21] MEDS: Multivit/Ca/Min/Fe/FA 1 TAB TABLET PO SCH (08:16)
[2018-12-21] MEDS: Sennosides 8.6 MG TABLET PO SCH (08:16)
[2018-12-21] MEDS: Budesonide/Formoterol 80/4.5 MDI IH SCH ×2 (10:40→21:24)
--- NOTE | 2018-12-21 10:49 | Internal Med Progress Note ---
Hospitalist Progress Note - Encounter Date of Encounter: 12/21/18 Time of Encounter: 10:47 - Subjective Interval History: Patient seen and examined earlier today. Sitting in chair and states his breathing is better compared to previous day. He refused xiong catheter removal yesterday and states he wants to keep the xiong in until discharge He refused physical therapy yesterday but is agreeing to seeing them today Ten point ROS is negative except as listed above - Exam Vitals: Temp Pulse Resp BP Pulse Ox 98.6 F 67 20 138/76 95 12/21/18 07:21 12/21/18 08:23 12/21/18 07:21 12/21/18 07:21 12/21/18 07:21 Exam: General: No acute distress, AAO x 3, Morbidly obese HEENT: EOMI, PERRLA, NC/AT, no scleral icterus Respiratory: Diminished breath sounds, no wheezing, no rales Cardiovascular: Regular, Rate, Rhythm, No murmurs GI: Soft, Non tender, non distended, normal bowel sounds Ext: chronic venous stasis and stasis dermatitis in bilateral lower extremities, no tenderness, positive pulses Neuro: AAO x 3, no focal deficits : xiong catheter Rest of the clinical exam is noncontributory - Assessment and Plan (1) Acute exacerbation of chronic obstructive airways disease Current Visit: Yes Status: Acute (2) Atrial fibrillation Current Visit: Yes Status: Chronic (3) Acute respiratory failure with hypercapnia Current Visit: Yes Status: Acute (4) GAVIN (obstructive sleep apnea) Current Visit: Yes Status: Chronic (5) Hypoventilation associated with obesity syndrome Current Visit: Yes Status: Chronic (6) Morbid obesity due to excess calories Current Visit: Yes Status: Chronic (7) Hyperglycemia Current Visit: Yes Status: Acute (8) Acute heart failure with normal ejection fraction Current Visit: Yes Status: Acute - Summary of Assessment and Plan Summary of Assessment and Plan: Patient is a 58y/o male with hx of end stage COPD on home oxygen, CHF, morbid obesity, GAVIN on bipap support, Afib who was admitted to the ICU on 12/14/18 for acute on chronic respiratory failure secondary to COPD exacerbation with superimposed HCAP requiring intubation (12/14/18). Pt was started on IV steroids, IV abx, and IV diuretics as there was a concern for CHF exacerbation contributing to the acute respiratory failure. Pt was successfully extubated on 12/16/18 and transitioned to bipap support. Patient has been started on a steroid taper and is transferred to on 12/18/18. Patient was recently discharged from [facility] a day prior to his arrival to [facility]. Assessment/Plan: 1. Acute on chronic respiratory failure with hypoxia and hypercapnia likely secondary to COPD exacerbation with superimposed HCAP (left lung base consolidation) and CHF exacerbation Clinically improving continue O2 supplementation and bipap support bipap during the day while napping started Prednisone 40mg PO qdaily today (12/21/18) Pt will be started on a long steroid taper pt finished abx therapy continue bronchodilator support continue home dose of lasix (40mg PO BID) closely monitor daily weight, strict I/Os maintain fluid restriction diet Pt encouraged to get out of bed to chair with assistance PT evaluation requested Pt educated to keep O2 saturation between 88-92% and titrate down O2 therapy. Currently saturating well on 4L NC and reported of being on 6L at home. 2. DM Type II continue sliding scale insulin algorithm monitor fingerstick and blood glucose ADA diet 3. Afib rate controlled with BB anticoagulated with coumadin pharmacist to dose coumadin, goal INR: 2-3, will continue to monitor 4. Hx of Obesity hypoventilation syndrome continue bipap support at this time 5. DVT ppx: anticoagulated with coumadin Care plan discussed with patient/RN/pharmacist/case management. - Time Spent with Patient Total time spent is greater than 50% in coordination of care (as documented) at patient's floor/unit and/or counseling patient: Internal Medicine: Result - Labs CBC & Chem 7: 12/21/18 01:12 12/21/18 01:12 Labs: Short CBC 12/21/18 Range/Units 01:12 WBC 9.8 (4.3-11.1) K/mcL Hgb 10.7 L (12.9-16.9) g/dL Hct 38.1 (37.5-50.1) % Plt Count 161 (140-400) K/mcL Neutrophils # 8.6 (1.6-8.9) K/mcL BMP 12/21/18 01:12 Sodium 142 Potassium 4.2 Chloride 89 L Carbon Dioxide > 45 H* BUN 23 H Creatinine 0.59 L Glucose 158 H Calcium 8.8 - ABG Interpretation ABG results: ABG ABG pH 7.36 pH Units (7.32-7.45) 12/17/18 09:19 ABG pCO2 89 mmHg (35-45) H* 12/17/18 09:19 ABG pO2 63 mmHg (85-104) L 12/17/18 09:19 ABG O2 Saturation 88 % (95-98) L 12/17/18 09:19 PT/INR, D-dimer PT 33.5 Seconds (9.4-12.1) H 12/21/18 01:12 Consult Discharge Plan - Plan Referrals: Jay Cool MD [Non-Partnered Physician] - 12/31/18 11:30 am _ (2) Atrial fibrillation Qualifiers: Atrial fibrillation type: paroxysmal Qualified Code(s): I48.0 - Paroxysmal atrial fibrillation
[2018-12-21] MEDS ORDERED: *HR* Warfarin 4 MG TABLET PO ONE (18:00)
[2018-12-22 02:36] LABS: INR 2.7; Prothrombin Time 30.3 Seconds (9.4-12.1)
[2018-12-22] MEDS: Ipratropium/Albuterol Neb 3 ML IH SCH ×3 (03:47→15:54)
[2018-12-22] MEDS: Insulin LISPRO 300 UNITS/3 ML VIAL SQ SCH ×2 (07:49→11:55)
[2018-12-22] MEDS: Furosemide 40 MG TABLET PO SCH (07:58)
[2018-12-22] MEDS: predniSONE 20 MG TABLET PO SCH (07:58)
[2018-12-22] MEDS: Sennosides 8.6 MG TABLET PO SCH (07:58)
[2018-12-22] MEDS: rOPINIRole 1 MG TABLET PO SCH (07:58)
[2018-12-22] MEDS: Multivit/Ca/Min/Fe/FA 1 TAB TABLET PO SCH (07:58)
[2018-12-22] MEDS: *HR* Amiodarone 200 MG TABLET PO SCH (07:58)
[2018-12-22] MEDS: Fluticasone Propionate Nasal 50 MCG/SPRAY BOTTLE NS SCH (07:59)
[2018-12-22] MEDS: Budesonide/Formoterol 80/4.5 MDI IH SCH (09:39)
[2018-12-22 11:12] LABS: Basophils % 0.1 %; Hemoglobin 10.9 g/dL (12.9-16.9); Immature Granulocytes % 0.3 % (0-4); Mean Platelet Volume 9.8 fL (9.4-12.4)
[2018-12-22 11:13] LABS: Eosinophils # 0.2 K/mcL (0.0-0.6); Eosinophils % 1.3 %; Hematocrit 39.3 % (37.5-50.1); Lymphocytes # 0.5 K/mcL (0.6-4.6); Lymphocytes % 3.5 %; Mean Corpuscular HGB Conc 27.7 g/dL (31.6-35.5); Mean Corpuscular Hemoglobin 24.8 pg (28.0-33.3); Mean Corpuscular Volume 89.5 fL (83.0-100.0); Monocytes # 0.6 K/mcL (0.0-1.3); Monocytes % 4.1 %; Neutrophils # 12.4 K/mcL (1.6-8.9); Platelet Count 162 K/mcL (140-400); Red Blood Count 4.39 M/mcL (4.19-5.50); Red Cell Distribution Width 15.4 % (11.5-14.5); Segmented Neutrophils % 90.7 %; White Blood Count 13.7 K/mcL (4.3-11.1)
[2018-12-22 11:21] VITALS: BP 128/76
[2018-12-22 11:30] LABS: Platelet Estimate Normal (Normal)
[2018-12-22 11:32] LABS: Anisocytosis 1+ (Not Present); Hypochromasia Present (Not Present)
[2018-12-22 11:34] LABS: BUN/Creatinine Ratio 35 (6-26); Blood Urea Nitrogen 22 mg/dL (6-20); Calcium 8.4 mg/dL (8.6-10.3); Carbon Dioxide > 45 mEq/L (23-29); Chloride 91 mEq/L (98-107); Glucose 157 mg/dL (70-105); Magnesium 2.1 mg/dL (1.6-2.6); Osmolality,Calculated 301 (280-300); Phosphorous 3.7 mg/dL (2.7-4.5); Potassium 3.7 mEq/L (3.5-5.1); Sodium 142 mEq/L (136-145); eGFR For African Americans > 60 (> 60); eGFR For Non-African Americans > 60 (> 60)
--- NOTE | 2018-12-22 13:12 | Physician Discharge Referral ---
ExtendedCare Referral Info Transfer To: ECF Provider in Charge after Transfer: PCP Institutional Level of Care: Skilled - Diagnosis (1) Acute exacerbation of chronic obstructive airways disease Priority: Primary Status: Acute (2) Atrial fibrillation Priority: Secondary Status: Chronic (3) GAVIN (obstructive sleep apnea) Status: Chronic (4) Acute respiratory failure with hypercapnia Priority: Primary Status: Acute (5) Hypoventilation associated with obesity syndrome Priority: Secondary Status: Chronic (6) Morbid obesity due to excess calories Priority: Secondary Status: Chronic (7) Hyperglycemia Priority: Secondary Status: Acute (8) Acute heart failure with normal ejection fraction Priority: Primary Status: Acute - Transfer Medications Home Medications: Atorvastatin Calcium [Lipitor] 80 mg PO DAILY 05/04/15 [History] Multivitamin/Ferrous Sulfate [One-Daily Jgvyv-Ynp-Ncfl Tab] 1 tab PO DAILY 05/04/15 [History] Amiodarone [Cordarone] 200 mg PO DAILY 11/23/17 [History] Fluticasone Propionate Nasal [Flonase] 1 spr NS BID 11/23/17 [History] Fluticasone/Salmeterol [Advair Hfa 45-21 Mcg Inhaler] 2 puff IH BID 01/04/18 [History] Warfarin [Coumadin] 8 mg PO 1800 01/04/18 [History] Citalopram Hydrobromide [Citalopram HBr] 60 mg PO DAILY 07/09/18 [History] Ipratropium/Albuterol Sulfate [Iprat-Albut 0.5-3(2.5) mg/3 ml] 3 ml IH Q6H PRN 10/08/18 [History] Furosemide [Lasix] 40 mg PO BID 11/05/18 [History] Ropinirole HCl [Requip] 0.5 mg PO DAILY 12/16/18 [History] Carvedilol [Coreg] 3.125 mg PO BIDWM tablet 12/22/18 [Rx] predniSONE [PredniSONE] 40 mg PO DAILY tablet 12/22/18 [Rx] Allergies/Adverse Reactions: Allergy/AdvReac Type Severity Reaction Status Date / Time OLIVER Inhibitors AdvReac Cough Verified 11/04/18 11:25 - Respiratory Orders Smoking Cessation: Smoking cessation has been advised. For more information, call the [employer] Tobacco Quit Line at 2-279-ZLXF-NOW. - Rehabiliation Orders Other: 1. Please follow up with your primary care physician within five days after your discharge from the hospital 2. Please follow up with pulmonology within five days after your discharge from the hospital. 3. Please continue steroid taper (prednisone 40mg PO qdaily x 3 days, followed by 30mg PO qdaily x 3 days, followed by 20mg PO qdaily x 3 days, followed by 10mg PO qdaily x 3 days) 4. Resume home meds as prescribed by your PCP 5. bipap support at bedtime. CERTIFICATION: I certify that the transfer of the above named patient to an Extended Care Facility is necessary for the continuing treatment of the diagnosis listed. The above information is true and accurate reflection of patient's current condition. Confidential - Redisclosure prohibited without a patient's written consent.
--- NOTE | 2018-12-22 13:21 | Discharge Summary ---
- NOTES TO OUTPATIENT PROVIDER Notes to Outpatient Provider: Patient is a 58y/o male with hx of end stage COPD on home oxygen, CHF, morbid obesity, GAVIN on bipap support, Afib who was admitted to the ICU on 12/14/18 for acute on chronic respiratory failure secondary to COPD exacerbation with superimposed HCAP requiring intubation (12/14/18). Pt was started on IV steroids, IV abx, and IV diuretics as there was a concern for CHF exacerbation contributing to the acute respiratory failure. Pt was successfully extubated on 12/16/18 and transitioned to bipap support. Patient has been started on a steroid taper. Closely monitor respiratory status Orders not resulted at time of discharge: Pending orders 12/23/18 04:00 INR/PT [Prothrombin Time INR] [COAG] AM 0400 12/24/18 04:00 INR/PT [Prothrombin Time INR] [COAG] AM 0400 Date of Encounter: 12/22/18 Time of Encounter: 13:21 - Discharge Diagnosis (1) Acute exacerbation of chronic obstructive airways disease Priority: Primary Status: Acute (2) Atrial fibrillation Priority: Secondary Status: Chronic Qualifiers: Atrial fibrillation type: paroxysmal Qualified Code(s): I48.0 - Paroxysmal atrial fibrillation (3) GAVIN (obstructive sleep apnea) Priority: Secondary Status: Chronic (4) Acute respiratory failure with hypercapnia Priority: Primary Status: Acute (5) Hypoventilation associated with obesity syndrome Priority: Secondary Status: Chronic (6) Morbid obesity due to excess calories Priority: Secondary Status: Chronic (7) Hyperglycemia Priority: Secondary Status: Resolved (8) Acute heart failure with normal ejection fraction Priority: Primary Status: Acute Hospital course: Mr. Rubalcava is a 58 year old male with hx of end stage COPD on home oxygen, CHF, morbid obesity, GAVIN on bipap support, Afib who was admitted to the ICU on 12/14/18 for acute on chronic respiratory failure secondary to COPD exacerbation with superimposed HCAP requiring intubation (12/14/18). Pt was started on IV steroids, IV abx, and IV diuretics as there was a concern for CHF exacerbation contributing to the acute respiratory failure. Pt was successfully extubated on 12/16/18 and transitioned to bipap support. Patient has been started on a steroid taper and is transferred to on 12/18/18. Pt has been doing well on 4L NC,tolerating bipap support well. He is currently on a prednisone taper. He has been transitioned to PO Lasix. Pt was evaluated by physical therapy and SNF was recommended. Pt is medically stable for discharge to SNF today. Pt is to bring his own bipap to SNF, pt in agreement with this plan. He was seen and examined this morning. He had refused xiong discontinuation however xiong to be removed prior to discharge. Discharge discussed with: patient, nurse, social work - Time Spent with Patient Total time spent providing and/or coordinating discharge services: 40 minutes Time spent: Greater than 30 minutes - Discharge Medications Prescriptions: New Carvedilol [Coreg] 3.125 mg PO BIDWM tablet predniSONE [PredniSONE] 40 mg PO DAILY tablet Continued Multivitamin/Ferrous Sulfate [One-Daily Eldah-Dnh-Wkpk Tab] 1 tab PO DAILY Atorvastatin Calcium [Lipitor] 80 mg PO DAILY Amiodarone [Cordarone] 200 mg PO DAILY Fluticasone Propionate Nasal [Flonase] 1 spr NS BID Fluticasone/Salmeterol [Advair Hfa 45-21 Mcg Inhaler] 2 puff IH BID Warfarin [Coumadin] 8 mg PO 1800 Citalopram Hydrobromide [Citalopram HBr] 60 mg PO DAILY Ipratropium/Albuterol Sulfate [Iprat-Albut 0.5-3(2.5) mg/3 ml] 3 ml IH Q6H PRN PRN Reason: Shortness Of Breath Furosemide [Lasix] 40 mg PO BID Ropinirole HCl [Requip] 0.5 mg PO DAILY Discontinued Potassium Chloride [Klor-Con 10] 10 meq PO BID Carvedilol 3.125 mg PO BID Home Medications: Atorvastatin Calcium [Lipitor] 80 mg PO DAILY 05/04/15 [History] Multivitamin/Ferrous Sulfate [One-Daily Zqdru-Qrc-Jpbl Tab] 1 tab PO DAILY 05/04/15 [History] Amiodarone [Cordarone] 200 mg PO DAILY 11/23/17 [History] Fluticasone Propionate Nasal [Flonase] 1 spr NS BID 11/23/17 [History] Fluticasone/Salmeterol [Advair Hfa 45-21 Mcg Inhaler] 2 puff IH BID 01/04/18 [History] Warfarin [Coumadin] 8 mg PO 1800 07/05/18 [History] Citalopram Hydrobromide [Citalopram HBr] 60 mg PO DAILY 07/09/18 [History] Ipratropium/Albuterol Sulfate [Iprat-Albut 0.5-3(2.5) mg/3 ml] 3 ml IH Q6H PRN 10/08/18 [History] Furosemide [Lasix] 40 mg PO BID 11/05/18 [History] Ropinirole HCl [Requip] 0.5 mg PO DAILY 12/16/18 [History] Carvedilol [Coreg] 3.125 mg PO BIDWM tablet 12/22/18 [Rx] predniSONE [PredniSONE] 40 mg PO DAILY tablet 12/22/18 [Rx] Allergies/Adverse Reactions: Allergy/AdvReac Type Severity Reaction Status Date / Time OLIVER Inhibitors AdvReac Cough Verified 11/04/18 11:25 Date of admission: 12/14/18 17:36 Primary care physician: Jay Cool Consults: 12/14/18 17:57 Consult to Job Tracer [CONS] Routine Reason for SW Consult: d/c planning, wanting poa 12/14/18 18:14 Consult to Critical Care [CONS] Stat Consulting Provider: Pulm Crit Care & Sleep [facility] Reason for Consult: Acute respiratory failure, intubated Call Completed: Yes 12/15/18 15:48 Consult to Nutrition [CONS] Routine Comment: Consulting Provider: NUTRITION Reason for Dietary Consult: Tube Feed Start & Manage 12/17/18 14:52 Consult to Nurse Navigator [CONS] Routine Comment: COPD 12/19/18 12:45 Consult to Physical Therapy [CONS] Routine Comment: Evaluate, develop and implement POC Reason for Consult: evaluation for discharge disposition Does patient have active BEDREST order?: No Is patient medically & hemodynamically stable?: Yes Patient assessed for mobility or mobilized this visit?: Yes 12/20/18 16:15 Consult to Occupational Therapy [CONS] Routine Comment: Evaluate, develop and implement POC Reason for Consult: weakness Does patient have active BEDREST order?: No Is patient medically & hemodynamically stable?: Yes Patient assessed for mobility or mobilized this visit?: Yes Discharging clinician: Melanie Soto Anticipated date of discharge: 12/22/18 - Constitutional Vitals: Temp Pulse Resp BP Pulse Ox 98.4 F 73 17 128/76 94 12/22/18 11:20 12/22/18 11:20 12/22/18 11:20 12/22/18 11:20 12/22/18 11:20 Exam: General: No acute distress, AAO x 3, Morbidly obese HEENT: EOMI, PERRLA, NC/AT, no scleral icterus Respiratory: Equal air entry bilaterally, no wheezing, no rales Cardiovascular: Regular, Rate, Rhythm, No murmurs GI: Soft, Non tender, non distended, normal bowel sounds Ext: chronic venous stasis and stasis dermatitis in bilateral lower extremities, no tenderness, positive pulses Neuro: AAO x 3, no focal deficits Rest of the clinical exam is noncontributory - Patient Status Disposition: Transfer SNF - Discharge Instructions Follow Up With: Jay Cool MD [Non-Partnered Physician] - 12/31/18 11:30 am Additional Instructions: 1. Please follow up with your primary care physician within five days after your discharge from the hospital 2. Please follow up with pulmonology within five days after your discharge from the hospital. 3. Please continue steroid taper (prednisone 40mg PO qdaily x 3 days, followed by 30mg PO qdaily x 3 days, followed by 20mg PO qdaily x 3 days, followed by 10mg PO qdaily x 3 days) 4. Resume home meds as prescribed by your PCP 5. bipap support at bedtime. - Diet and Activity Activity: wear oxygen at all times, wear oxygen at night (bipap at night ) Diet: low fat, low cholesterol, low salt diet
[2018-12-22] MEDS ORDERED: *HR* Warfarin 3 MG TABLET PO ONE (18:00)
== END 2018-12-22 18:04 | DRG 208 ==
LOC: SUATTDRO 17:36 → 2NNU 17:36 → ICNU 19:00 → 2NNU 12-18 07:20
PROVIDERS: ADMIT Internal Medicine Nephrology; ATTEND Internal Medicine

== ENCOUNTER 2019-02-24 18:23 | Inpatient (IN) ==
[~2019-02-24 18:23] MED LIST changes: -*HR* Etomidate 20 MG/10 ML AMPUL IVP ONE; -*HR* Succinylcholine 200 MG/10 ML VIAL IVP ONE; +Aminoglycoside Consult 1 EACH MC ONE
[2019-02-24] MEDS ORDERED: Naloxone 0.4 MG/ML INJ IVP PRN (20:33)
[2019-02-24] MEDS ORDERED: Artificial Tears SOLN 15 ML BOTTLE BOTH EYES PRN (20:35)
--- NOTE | 2019-02-24 20:38 | Internal Med History&Physical ---
<Riki Aocsta - Last Filed: 02/24/19 22:53> Date of Encounter: 02/24/19 Time of Encounter: 21:04 Internal Medicine - H&P: HPI History of present illness: Mr. Rubalcava is a 58-year-old male with a PMH of CHF and COPD who presented to [facility] as a transfer from [facility] on 02/24/19. [facility]ness of breath. According to his , he had not been using his home BiPAP for at least 2 weeks. He also reported significant productive cough with green colored sputum and chest tightness. Initial vital signs were significant for tachypnea at 20 breaths per minute. He was placed on a nonrebreather mask and later BiPAP. Labs showed a hemoglobin of 9.8, carbon dioxide >45, and a BNP of 125. ABG showed pH of 7.2, PCO2 130, PO2 172, HCO3 51, total CO2 >50. Initial CXR showed stable cardiomegaly without definite CHF. Patients respiratory status did not improve after being placed on BiPAP, and decision was made to intubate. Subsequent CXR showed increased L perihilar consolidation and volume loss and diffuse R pulmonary infiltrate. He was then transferred to [facility] ICU for further management. During my assessment, patient is intubated and sedated and did not appear to be in any acute distress. Lung sounds are diminished bilaterally, and there is no evidence of wheezing or rhonchi. We will initiate vancomycin and Zosyn for coverage for possible HCAP. Blood and sputum cultures have been ordered. Pro-calcitonin, strep, and legionella antigens are also pending. Repeat ABG is pending tonight at 23:00. Propofol and fentanyl are ordered for sedation. Vent bundle and restraint orders are in place. Consult to pulmonology/critical care has been placed. Medical History: atrial fibrillation s/p pacemaker/AICD, cardiomyopathy, CHF, COPD, HTN, HLD Social History: Former smoker Family History: Uterine cancer in mother, lung/renal cancer in father Past Med Surg Social Fam HX - Past Medical History Medical history: atrial fibrillation, cardiomyopathy, CHF, COPD, hyperlipidemia, hypertension, other Additional medical history: deaf right ear Psychiatric history: anxiety, depression - Past Surgical History Surgical History: pacemaker/AICD - Social History Smoking Status: Former smoker Smokeless Tobacco Status: No Alcohol use: none Drug use: none - Family History Mother Family Member Ethnicity: Non- Living Status: Still Living Hx Family Cardiac Disorders: No Hx Family Respiratory Disorders: No Hx Family Cancer: Yes (uterine) Hx Family GI Disorders: No Hx Family Endocrine Disorder: No Father Adopted: No Family Member Ethnicity: Non- Living Status: Hx Family Cancer: Yes (lung/ kidney) Hx Family GI Disorders: No Internal Medicine - H&P: Meds Atorvastatin Calcium [Lipitor] 80 mg PO DAILY 05/04/15 [History] Multivitamin/Ferrous Sulfate [One-Daily Tsafv-Tpr-[id number] Tab] 1 tab PO DAILY 05/04/15 [History] Amiodarone [Cordarone] 200 mg PO DAILY 11/23/17 [History] Fluticasone Propionate Nasal [Flonase] 1 spr NS BID 11/23/17 [History] Fluticasone/Salmeterol [Advair Hfa 45-21 Mcg Inhaler] 2 puff IH BID 01/04/18 [History] Warfarin [Coumadin] 8 mg PO 1800 01/04/18 [History] Citalopram Hydrobromide [Citalopram HBr] 60 mg PO DAILY 07/09/18 [History] Ipratropium/Albuterol Sulfate [Iprat-Albut 0.5-3(2.5) mg/3 ml] 3 ml IH Q6H 10/08/18 [History] Furosemide [Lasix] 40 mg PO BID 11/05/18 [History] Ropinirole HCl [Requip] 0.5 mg PO DAILY 12/16/18 [History] Carvedilol [Coreg] 3.125 mg PO BIDWM tablet 12/22/18 [Rx] Allergy/AdvReac Type Severity Reaction Status Date / Time OLIVER Inhibitors AdvReac Cough Verified 02/24/19 12:19 ROS unobtainable: due to endotracheal tube, due to mental status All Systems PM: A 10-system review of systems was performed and is negative for pertinent findings except as documented above in the HPI. - Constitutional Vitals: Resp BP Pulse Ox 12 160/90 97 02/24/19 19:30 02/24/19 19:30 02/24/19 19:30 Exam: General: Currently intubated and sedated; does not appear to be in any acute distress HEENT: Atraumatic, normocephalic; Endotracheal tube in place Respiratory: Diminished breath sounds bilaterally, No accessory muscle use, wheezes, rales, or rhonchi Cardiovascular: RRR, +S1, +S2; no murmurs, rubs, gallops Abdomen: Soft, obese Extremities: Chronic venous stasis changes of LEs Neurological: Unable to assess Psychiatric: Unable to assess Skin: Dry, intact - Assessment and Plan (1) Acute and chronic respiratory failure with hypercapnia Current Visit: No Status: Acute Assessment and plan: Assessment - Patient initially presented to [facility] with worsening SOB that did not improve with BiPAP; subsequently required intubation - Etiology unknown at this time; likely multiple contributory factors, including severe COPD, obesity hypoventilation syndrome, CHF, possible PNA - Per chart review, patient has a history of multiple admissions for acute respiratory failure requiring intubation - Known history of noncompliance for BiPAP and O2 at home - On chart review, patient has baseline acidic pH - Initial ABG at [facility]: 7.20/130/172/51/>50/99 - Most recent AB.33/93/49/49/>50/78 Plan - Currently intubated and sedated; vent bundle and restraint orders in place - Consult to pulmonology/critical care has been placed - IV vancomycin and Zosyn for possible pneumonia - Propofol and fentanyl ordered for sedation - Repeat ABG is pending for 23:00 - Will hold off on IV steroids, as patient does not have wheezing on exam - Scheduled DuoNeb - Daily ABGs (2) Pneumonia Current Visit: Yes Status: Acute Assessment and plan: Assessment - Initially presented to [facility] with respiratory distress - He had reportedly been coughing up green colored sputum x2 weeks - History of multiple prior admissions and states in the ICU requiring intubation for respiratory failure complicated by PNA - CXR after intubation showed increased L perihilar consolidation and volume loss and diffuse R pulmonary infiltrate - Causative organism unknown; per chart review, sputum CX on 12/15 grew pansensitive staph aureus - Does not meet SIRS criteria at this time Plan - Vancomycin and Zosyn has been started for possible HCAP - Urine Legionella, urine Streptococcus antigens ordered - Pro-calcitonin pending - Repeat a.m. labs Qualifiers: Qualified Code(s): J18.9 - Pneumonia, unspecified organism (3) Paroxysmal atrial fibrillation Current Visit: Yes Status: Acute Assessment and plan: - Rate controlled at this time - Continue Coumadin and amiodarone - Continuous telemetry - PT/INR with AM labs ordered (4) COPD (chronic obstructive pulmonary disease) Current Visit: Yes Status: Acute Assessment and plan: - Normally dependent on 6 L of home O2 - Plan as documented above Qualifiers: Qualified Code(s): J44.9 - Chronic obstructive pulmonary disease, unspecified (5) CHF (congestive heart failure) Current Visit: Yes Status: Acute Assessment and plan: - Known history of CHF; takes lasix 40mg PO BID at home - No evidence of pulmonary vascular congestion on XR - No evidence of volume overload on exam - Will hold off on lasix tonight, re-assess in the AM Qualifiers: Qualified Code(s): I50.9 - Heart failure, unspecified (6) HTN (hypertension) Current Visit: Yes Status: Acute Assessment and plan: -Resume home meds - PRN hydralazine Qualifiers: Qualified Code(s): I10 - Essential (primary) hypertension (7) DVT prophylaxis Current Visit: Yes Status: Acute Assessment and plan: - Resume coumadin once home meds reconciled - Time Spent With Patient Total time spent is greater than 50% in coordination of care (as documented) at patient's floor/unit and/or counseling patient: <Nikhil Goldsmith - Last Filed: 02/25/19 02:40> Date of Encounter: 02/24/19 Time of Encounter: 22:05 ROS unobtainable: due to endotracheal tube - Constitutional Vitals: Temp Pulse Resp BP Pulse Ox 98.3 F 60 12 136/69 99 02/24/19 20:22 02/24/19 22:00 02/24/19 22:00 02/24/19 22:00 02/24/19 22:00 Exam: intubated, sedated, morbidly obese - Head Head exam: Present: atraumatic, normal inspection - ENT ENT exam: Present: mucous membranes dry, normal exam, normal oropharynx Additional comments: ETT in place - Neck Neck exam general surgery: Present: full ROM, supple, trachea midline. Absent: lymphadenopathy, tenderness, nuchal rigidity, thyromegaly - Respiratory Respiratory exam: Present: decreased breath sounds, rales, rhonchi. Absent: chest wall tenderness Additional comments: diminished breath sound on left compared to right - Cardiovascular Cardiovascular exam: Present: distant heart sounds, RRR, +S1, +S2. Absent: diastolic murmur, systolic murmur Additional comments: pacer noted in left upper chest - GI/Abdominal GI/Abdominal exam: Present: hypoactive bowel sounds, soft, no peritoneal signs. Absent: guarding, mass, rebound, tenderness - Extremities Exam Extremities exam: Present: normal capillary refill, warm, radial pulses palpable and symmetrical. Absent: calf tenderness Additional comments: chronic venous stasis changes - Neurological Exam Additional comments: sedated; unable to assess - Psychiatric Additional comments: unable to assess -- sedated - Skin Skin exam: Present: dry, intact, warm Internal Med - H&P Results - Labs Labs: labs reviewed from [facility] - ABG Interpretation ABG results: 02/24/19 21:36 ABG pH 7.45 D ABG pCO2 73 H* D ABG pO2 79 L ABG HCO3 50 H ABG Total CO2 > 50 H ABG O2 Saturation 95 ABG Base Excess 22 H - Impressions ITS Impressions Chest X-Ray 02/24/19 20:52 IMPRESSION: 1. Life support appliances appear appropriately positioned. 2. Congestive heart failure probably accounts for the pulmonary findings. 3. Bilateral pleural effusion and bibasilar consolidation may be related to pulmonary edema or pneumonia. 4. Cardiomegaly. 5. Calcific atherosclerotic disease aorta. D/ / Nimesh Norman / Nimesh Norman Interpreting Provider: Nimesh Norman X-Ray 02/24/19 20:52 IMPRESSION: NG tip and side-port in the left upper quadrant D/ / Nicolas Rivera MD / Nicolas Rivera MD Interpreting Provider: Nicolas Rivera MD - Diagnostic Studies Chest x-ray Status: image reviewed by me - Time Spent With Patient Total time spent is greater than 50% in coordination of care (as documented) at patient's floor/unit and/or counseling patient: - Attending Attestation I discussed the patient QUINAULT, past medical history, exam findings, lab data, and imaging findings with Dr. Acosta. I then saw and assessed patient in the intensive care unit independently as well. Patient is intubated, sedated, and he is responding to tactile and loud verbal stimuli. I reviewed old records and note that this is his fourth hospitalization here at [facility] and fifth overall since July of this year requiring ventilatory support. Patient has a history of noncompliance with his BiPAP mask at home, COPD, and sleep apnea treatment measures. He is morbidly obese. His hypercapnia is likely secondary to obesity hypoventilation syndrome and COPD complicated by noncompliance. Clinically I do not feel he is in CHF. I suspect he has hypercapnic respiratory failure secondary to hypoventilation with possible pneumonia. He has a contraction alkalosis and CO2 retention. His urine is concentrated and he appears to be intravascularly dry. We are going to withhold Lasix today and likely resume it in the next 24-48 hours once his fluid balance equilibrates. He is in need of ongoing respiratory support, antibiotics, oxygenation, and cautious fluid management. Once he is stable clinically and extubates, he needs to have ongoing treatment and abide by medical advice. Ultimately, he may need tracheostomy due to his recurrent bouts of respiratory failure secondary to noncompliance and obstructive sleep apnea/hypoventilation syndrome. We will consult pulmonary and ask their assistance in management of this patient. Other than my comments above and documented exam findings, I agree with Dr. Acosta's assessment and plan. Please note that a total of 42 minutes critical care time spent assessing patient, coordinating care, and discussing treatment plan with Dr. Acosta, his nurse, and respiratory therapy.
[2019-02-24] MEDS: Chlorhexidine Rinse 15 ML MOUTHWASH MM SCH (21:32)
[2019-02-24 21:43] LABS: ABG Base Excess 22 mEq/L (-2 to 3); ABG HCO3 50 mEq/L (21-27); ABG Oxygen Saturation 95 % (95-98); ABG PCO2 73 mmHg (35-45); ABG PH 7.45 pH Units (7.32-7.45); ABG PO2 79 mmHg (85-104); ABG TCO2 > 50 mEq/L (20-26); Blood Gas Modality ASSIST CONTROL; Blood Gas PEEP 8 cm H2O; Blood Gas VT 600 cc
[2019-02-24] MEDS: Ipratropium/Albuterol Neb 3 ML IH SCH (22:03)
[2019-02-24] MEDS: FentaNYL (PF) 1,000 MCG in 0.9 % Sodium Chloride 80 ML IVC SCH (22:15)
[2019-02-24] MEDS: Artificial Tears SOLN 15 ML BOTTLE BOTH EYES SCH (22:56)
[2019-02-24] MEDS: Piperacillin/Tazobactam 3.375 GM in 0.9 % Sodium Chloride Mini Bag 100 ML IVPB SCH (22:56)
[2019-02-25] MEDS ORDERED: Naloxone 0.4 MG/ML INJ IVP PRN (00:43)
[2019-02-25] MEDS: Artificial Tears SOLN 15 ML BOTTLE BOTH EYES SCH ×6 (03:59→23:06)
[2019-02-25] MEDS: Ipratropium/Albuterol Neb 3 ML IH SCH ×4 (04:10→21:18)
[2019-02-25 05:16] LABS: INR 4.2
[2019-02-25 05:16] LABS: ABG Base Excess 21 mEq/L (-2 to 3); ABG HCO3 48 mEq/L (21-27); ABG Oxygen Saturation 94 % (95-98); ABG PCO2 68 mmHg (35-45); ABG PH 7.46 pH Units (7.32-7.45); ABG PO2 73 mmHg (85-104); ABG TCO2 > 50 mEq/L (20-26); Blood Gas Modality ASSIST CONTROL; Blood Gas PEEP 8 cm H2O; Blood Gas VT 600 cc
[2019-02-25 05:18] LABS: Activated Partial Thrombo Time 52.7 Seconds (26.0-36.0); Magnesium 2.2 mg/dL (1.6-2.6); Phosphorous 2.8 mg/dL (2.7-4.5)
[2019-02-25 05:20] LABS: Prothrombin Time 48.2 Seconds (9.4-12.1)
[2019-02-25 06:20] LABS: Hematocrit 30.5 % (37.5-50.1); Hemoglobin 8.5 g/dL (12.9-16.9); Immature Granulocytes % 0.6 % (0-4); Lymphocytes # 0.6 K/mcL (0.6-4.6); Lymphocytes % 6.3 %; Mean Corpuscular HGB Conc 27.9 g/dL (31.6-35.5); Mean Corpuscular Hemoglobin 24.9 pg (28.0-33.3); Mean Corpuscular Volume 89.4 fL (83.0-100.0); Mean Platelet Volume 9.4 fL (9.4-12.4); Monocytes # 0.8 K/mcL (0.0-1.3); Monocytes % 8.5 %; Platelet Count 173 K/mcL (140-400); Red Blood Count 3.41 M/mcL (4.19-5.50); Red Cell Distribution Width 14.8 % (11.5-14.5); Segmented Neutrophils % 84.6 %; White Blood Count 8.8 K/mcL (4.3-11.1)
[2019-02-25 06:21] LABS: Neutrophils # 7.4 K/mcL (1.6-8.9)
[2019-02-25 06:43] LABS: Hypochromasia Present (Not Present); Platelet Estimate Normal (Normal)
[2019-02-25 06:44] LABS: Anisocytosis 1+ (Not Present)
[2019-02-25 06:50] LABS: BUN/Creatinine Ratio 34 (6-26); Blood Urea Nitrogen 21 mg/dL (6-20); Calcium 8.6 mg/dL (8.6-10.3); Carbon Dioxide > 45 mEq/L (23-29); Chloride 91 mEq/L (98-107); Glucose 133 mg/dL (70-105); Osmolality,Calculated 303 (280-300); Potassium 3.9 mEq/L (3.5-5.1); Sodium 144 mEq/L (136-145); eGFR For African Americans > 60 (> 60); eGFR For Non-African Americans > 60 (> 60)
[2019-02-25] MEDS: Piperacillin/Tazobactam 3.375 GM in 0.9 % Sodium Chloride Mini Bag 100 ML IVPB SCH (08:12)
[2019-02-25] MEDS: Chlorhexidine Rinse 15 ML MOUTHWASH MM SCH ×2 (08:12→19:58)
[2019-02-25] MEDS: *HR* Amiodarone 200 MG TABLET PO SCH (08:13)
[2019-02-25] MEDS: Pantoprazole 40 MG VIAL IVP SCH (08:13)
--- NOTE | 2019-02-25 08:17 | Pulmonology Progress Note ---
Date of Encounter: 02/25/19 Time of Encounter: 08:17 Assessment and Plan (1) Acute on chronic respiratory failure with hypercapnia Current Visit: Yes Status: Acute Assessment - Patient initially presented to [facility] with worsening SOB that did not imp rove with BiPAP; subsequently required intubation - Etiology unknown at this time; likely multiple contributory factors, including severe COPD, obesity hypoventilation syndrome, CHF, possible PNA - Per chart review, patient has a history of multiple admissions for acute respiratory failure requiring intubation - Known history of noncompliance for BiPAP and O2 at home Plan - Currently intubated and sedated; vent bundle and restraint orders in place - IV vancomycin and Zosyn for possible PNA - Propofol and fentanyl ordered for sedation - ABG today: - Scheduled DuoNebs, no IV steroids for now - Daily ABGs (2) HCAP (healthcare-associated pneumonia) Current Visit: Yes Status: Acute Assessment - Initially presented to [facility] with respiratory distress - Coughing up green colored sputum x2 weeks - History of multiple prior admissions, ICU stays requiring intubation for respiratory failure complicated by PNA - CXR after intubation showed increased L perihilar consolidation and volume loss and diffuse R pulmonary infiltrate - Causative organism unknown; per chart review, sputum CX on 12/15 grew pansensitive staph aureus - Does not meet SIRS criteria at this time Plan - Vancomycin and Zosyn has been started for possible HCAP - Urine Legionella, urine Streptococcus antigens ordered - Trend CBC, CMPs (3) Paroxysmal atrial fibrillation Current Visit: Yes Status: Acute - Rate controlled at this time, cont tele monitoring - Continue amiodarone - Hold warfarin, INR is 4.2 - Trend PT/INR, restart warfarin when stable (4) COPD (chronic obstructive pulmonary disease) Current Visit: Yes Status: Chronic - Normally dependent on 6 L of home O2 - Plan as documented above Qualifiers: COPD type: unspecified COPD Qualified Code(s): J44.9 - Chronic obstructive pulmonary disease, unspecified (5) GAVIN (obstructive sleep apnea) Current Visit: Yes Status: Chronic Chronic issue. Hx of noncompliance with BiPAP. - Current on vent. See plan above. (6) Hypertension Current Visit: Yes Status: Chronic - Resume home meds - PRN hydralazine Qualifiers: Hypertension type: essential hypertension Qualified Code(s): I10 - Essential (primary) hypertension (7) CHF (congestive heart failure) Current Visit: Yes Status: Chronic - Known history of CHF; takes lasix 40mg PO BID at home - No evidence of pulmonary vascular congestion on XR - No evidence of volume overload on exam - Will hold off on lasix for now Qualifiers: Qualified Code(s): I50.9 - Heart failure, unspecified (8) DVT prophylaxis Current Visit: Yes Status: Acute Subjective Principal diagnosis: Resp failure with hypercapnea, PNA Interval history: The patient was seen and examined at bedside. No acute events overnight. Patient was sedated and intubated. Patient did not appear to be in any discomfort or pain. Breathing on ventilator in soft restraints. Objective PUL Vital signs: Last Vital Signs Temp 98.1 F 02/25/19 07:15 Pulse 61 02/25/19 07:15 Resp 12 02/25/19 07:58 BP 112/61 02/25/19 07:58 Pulse Ox 94 02/25/19 07:58 General appearance: no acute distress Eyes: nonicteric ENT: oropharynx moist Neck: supple Effort: normal Auscultation: bilateral: wheezes (diffuse wheezing in all lung grande) Cardiovascular: regular rate and rhythm Gastrointestinal: normoactive bowel sounds, non-distended Integumentary: normal Extremities: no cyanosis, no edema, no clubbing Musculoskeletal: no deformities, ROM normal unable to assess due to mental status Ventilator Settings Ventilator Settings: Ventilator Settings, Last 8 Hours Ventilator Tidal Volume 600 Setting Ventilator Tidal Volume 600 Setting Ventilator Tidal Volume 600 Setting Ventilator Tidal Volume 600 Setting Ventilator Tidal Volume 600 Setting Ventilator Tidal Volume 600 Setting Ventilator Tidal Volume 600 Setting Ventilator Tidal Volume 600 Setting Ventilator Tidal Volume 600 Setting Ventilator Tidal Volume 600 Setting Ventilator Tidal Volume 600 Setting Ventilator Respiratory Rate 12 Setting Ventilator Respiratory Rate 12 Setting Ventilator Respiratory Rate 12 Setting Ventilator Respiratory Rate 12 Setting Ventilator Respiratory Rate 12 Setting Ventilator Respiratory Rate 12 Setting Ventilator Respiratory Rate 12 Setting Ventilator Respiratory Rate 12 Setting Ventilator Respiratory Rate 12 Setting Ventilator Respiratory Rate 12 Setting Ventilator Respiratory Rate 12 Setting Actual Respiratory Rate 12 Actual Respiratory Rate 12 Actual Respiratory Rate 12 Actual Respiratory Rate 12 Actual Respiratory Rate 12 Actual Respiratory Rate 12 Actual Respiratory Rate 12 Actual Respiratory Rate 12 Actual Respiratory Rate 12 Actual Respiratory Rate 12 Positive End Expiratory 8 Pressure Positive End Expiratory 8 Pressure Positive End Expiratory 5 Pressure Positive End Expiratory 8 Pressure Positive End Expiratory 5 Pressure Positive End Expiratory 8 Pressure Positive End Expiratory 8 Pressure Positive End Expiratory 8 Pressure Positive End Expiratory 8 Pressure Positive End Expiratory 8 Pressure Positive End Expiratory 8 Pressure Peak Inspiratory Airway 33 Pressure Peak Inspiratory Airway 34 Pressure Peak Inspiratory Airway 36 Pressure Peak Inspiratory Airway 32 Pressure Peak Inspiratory Airway 31 Pressure Peak Inspiratory Airway 31 Pressure Peak Inspiratory Airway 34 Pressure Peak Inspiratory Airway 33 Pressure Peak Inspiratory Airway 32 Pressure Peak Inspiratory Airway 32 Pressure Results - Laboratory Findings CBC and BMP: 02/25/19 06:06 02/25/19 06:06 ABG ABG pH 7.46 pH Units (7.32-7.45) H 02/25/19 05:12 ABG pCO2 68 mmHg (35-45) H 02/25/19 05:12 ABG pO2 73 mmHg (85-104) L 02/25/19 05:12 ABG O2 Saturation 94 % (95-98) L 02/25/19 05:12 PT/INR, D-dimer PT 48.2 Seconds (9.4-12.1) H* 02/25/19 04:38 Abnormal lab findings: Abnormal lab results RBC 3.41 M/mcL (4.19-5.50) L 02/25/19 06:06 Hgb 8.5 g/dL (12.9-16.9) L 02/25/19 06:06 Hct 30.5 % (37.5-50.1) L 02/25/19 06:06 MCH 24.9 pg (28.0-33.3) L 02/25/19 06:06 MCHC 27.9 g/dL (31.6-35.5) L 02/25/19 06:06 RDW 14.8 % (11.5-14.5) H 02/25/19 06:06 Hypochromasia Present (Not Present) A 02/25/19 06:06 Anisocytosis 1+ (Not Present) A 02/25/19 06:06 PT 48.2 Seconds (9.4-12.1) H* 02/25/19 04:38 APTT 52.7 Seconds (26.0-36.0) H 02/25/19 04:38 ABG pH 7.46 pH Units (7.32-7.45) H 02/25/19 05:12 ABG pCO2 68 mmHg (35-45) H 02/25/19 05:12 ABG pO2 73 mmHg (85-104) L 02/25/19 05:12 ABG HCO3 48 mEq/L (21-27) H 02/25/19 05:12 ABG Total CO2 > 50 mEq/L (20-26) H 02/25/19 05:12 ABG O2 Saturation 94 % (95-98) L 02/25/19 05:12 ABG Base Excess 21 mEq/L (-2 to 3) H 02/25/19 05:12 Chloride 91 mEq/L (98-107) L 02/25/19 06:06 Carbon Dioxide > 45 mEq/L (23-29) H* 02/25/19 06:06 BUN 21 mg/dL (6-20) H 02/25/19 06:06 Creatinine 0.62 mg/dL (0.70-1.30) L 02/25/19 06:06 BUN/Creatinine Ratio 34 (6-26) H 02/25/19 06:06 Glucose 133 mg/dL (70-105) H 02/25/19 06:06 Calculated Osmolality 303 (280-300) H 02/25/19 06:06 - Microbiology Findings Microbiology Findings: Microbiology, Last 48 Hours 02/24/19 22:22 Legionella Antigen - Final Urine,[place] Streptococcus pneumoniae Antigen (M - Final 02/24/19 21:00 Blood Culture - Preliminary Peripheral Venipuncture Culture is incubating and being continuously monitored for growth. Final report to follow. 02/24/19 21:06 Blood Culture - Preliminary Peripheral Venipuncture Culture is incubating and being continuously monitored for growth. Final report to follow. - Clinical Findings Intake & Output: Intake & Output 02/24/19 02/25/19 02/25/19 23:59 07:59 15:59 Intake Total 600 / 600 612 / 672 60 / 672 Output Total 175 / 175 475 / 475 Balance 425 / 425 137 / 197 60 / 197 Weight 188 kg 188 kg
[2019-02-25] MEDS: FentaNYL (PF) 1,000 MCG in 0.9 % Sodium Chloride 80 ML IVC SCH ×2 (09:48→19:59)
--- NOTE | 2019-02-25 11:27 | Pulmonology Consult Note ---
<Tariq Funes - Last Filed: 02/25/19 11:22> Date of Encounter: 02/25/19 Time of Encounter: 11:22 Assessment and Plan (1) Acute on chronic respiratory failure with hypercapnia Current Visit: Yes Status: Acute - Patient initially presented to [place] with worsening SOB that did not improve with BiPAP; subsequently required intubation - Etiology unknown at this time; likely multiple contributory factors, including severe COPD, obesity hypoventilation syndrome, CHF, possible PNA - Per chart review, patient has a history of multiple admissions for acute respiratory failure requiring intubation - Known history of noncompliance for BiPAP and O2 at home Plan - Currently intubated and sedated; vent bundle and restraint orders in place - Stopped IV vancomycin and Zosyn for possible PNA - Started azithromycin for anti-inflammation, tx for possible PNA - Propofol and fentanyl ordered for sedation - ABG today: - Scheduled DuoNebs, no IV steroids for now - Started acetazolamide for elevated bicarb - Started solumedrol 40 mg IV BID - Daily ABGs (2) Pneumonia Current Visit: Yes Status: Acute Assessment - Initially presented to [place] with respiratory distress - Coughing up green colored sputum x2 weeks - History of multiple prior admissions, ICU stays requiring intubation for respiratory failure complicated by PNA - CXR after intubation showed increased L perihilar consolidation and volume loss and diffuse R pulmonary infiltrate - Causative organism unknown; per chart review, sputum CX on 12/15 grew pansensitive staph aureus - Does not meet SIRS criteria at this time Plan - Stopped vanc/zosyn, now on azithromycin for PNA - Urine Legionella, urine Streptococcus antigens ordered - Trend CBC, CMPs Qualifiers: Pneumonia type: due to unspecified organism Laterality: unspecified laterality Lung location: unspecified part of lung Qualified Code(s): J18.9 - Pneumonia, unspecified organism (3) Paroxysmal atrial fibrillation Current Visit: Yes Status: Chronic - Rate controlled at this time, cont tele monitoring - Continue amiodarone - Stopped warfarin, INR is 4.2 - Trend daily PT/INR, consider restart warfarin when stable (4) COPD (chronic obstructive pulmonary disease) Current Visit: Yes Status: Chronic - Normally dependent on 6 L of home O2 - Plan as documented above Qualifiers: COPD type: unspecified COPD Qualified Code(s): J44.9 - Chronic obstructive pulmonary disease, unspecified (5) GAVIN (obstructive sleep apnea) Current Visit: Yes Status: Chronic Chronic issue. Hx of noncompliance with BiPAP. - Current on vent. See plan above. (6) Hypertension Current Visit: Yes Status: Chronic - Resume home meds of cavedilol - PRN hydralazine Qualifiers: Hypertension type: essential hypertension Qualified Code(s): I10 - Es sential (primary) hypertension (7) CHF (congestive heart failure) Current Visit: Yes Status: Chronic - Known history of CHF; takes lasix 40mg PO BID at home - No evidence of pulmonary vascular congestion on XR - No evidence of volume overload on exam - Will hold off on lasix for now Qualifiers: Qualified Code(s): I50.9 - Heart failure, unspecified (8) DVT prophylaxis Current Visit: Yes Status: Acute DVT ppx: hold warfarin Activity: soft restraints Fluids: none, fentanyl/propofol gtt Electrolytes: replete as necessary Nutrition: TF per nutrition recs GI ppx: pantoprazole Lines: 2x PIVs, NG, ET, xiong Consults: pulm Code: FULL CODE Dispo: pending stabilization History of Present Illness Consult date: 02/25/19 Requesting physician: Riki Acosta Reason for consult: pneumonia Chief complaint: dyspnea History of present illness: Patient is a 58-year-old male with past medical history of CHF and COPD who presented to [facility] as a transfer from [place] with shortness of breath. According to his , he had not been using his home BiPAP for at least 2 weeks. He also reported significant productive cough with green colored sputum and chest tightness. Initial vital signs were significant for tachypnea at 20 breaths per minute. On NRB and bipap. Labs showed a hemoglobin of 9.8, carbon dioxide >45, and a BNP of 125. ABG showed pH of 7.2, PCO2 130, PO2 172, HCO3 51, total CO2 >50. Initial CXR showed stable cardiomegaly without definite CHF. Intubated after respiratory status failing to improve on BiPAP. Subsequent CXR showed increased L perihilar consolidation and volume loss and diffuse R pulmonary infiltrate. Then transferred to ICU at [facility] for further management. No acute events overnight. This morning patient is intubated and sedated. Patient did not appear to be in any discomfort or pain. Breathing on ventilator in soft restraints with propofol and fentanyl for sedation. Lung sounds are diminished bilaterally, wheezing or rhonchi. Blood and sputum cultures have been obtained. Past Med Surg Social Fam HX - Past Medical History Attestation: Yes The following information was validated with the patient. Source: unable to obtain Medical history: atrial fibrillation, cardiomyopathy, CHF, COPD, hyperlipidemia, hypertension, other Additional medical history: deaf right ear Psychiatric history: anxiety, depression - Past Surgical History Surgical History: pacemaker/AICD - Social History Smoking Status: Former smoker Smokeless Tobacco Status: No Alcohol use: none Drug use: none - Family History Mother Family Member Ethnicity: Non- Living Status: Still Living Hx Family Cardiac Disorders: No Hx Family Respiratory Disorders: No Hx Family Cancer: Yes (uterine) Hx Family GI Disorders: No Hx Family Endocrine Disorder: No Father Adopted: No Family Member Ethnicity: Non- Living Status: Hx Family Cancer: Yes (lung/ kidney) Hx Family GI Disorders: No Medications and Allergies Atorvastatin Calcium [Lipitor] 80 mg PO DAILY 05/04/15 [History] Multivitamin/Ferrous Sulfate [One-Daily Lxkek-Qwc-Qsco Tab] 1 tab PO DAILY 05/04/15 [History] Amiodarone [Cordarone] 200 mg PO DAILY 11/23/17 [History] Fluticasone/Salmeterol [Advair Hfa 45-21 Mcg Inhaler] 2 puff IH BID 01/04/18 [History] Warfarin [Coumadin] 8 mg PO 1800 01/04/18 [History] Citalopram Hydrobromide [Citalopram HBr] 60 mg PO DAILY 07/09/18 [History] Ipratropium/Albuterol Sulfate [Iprat-Albut 0.5-3(2.5) mg/3 ml] 3 ml IH Q6H 10/08/18 [History] Furosemide [Lasix] 40 mg PO BID 11/05/18 [History] Ropinirole HCl [Requip] 0.5 mg PO DAILY 12/16/18 [History] Carvedilol [Coreg] 3.125 mg PO BIDWM tablet 12/22/18 [Rx] Potassium Chloride [K-Tab ER] 10 meq PO BID 02/25/19 [History] Allergy/AdvReac Type Severity Reaction Status Date / Time OLIVER Inhibitors AdvReac Cough Verified 02/25/19 11:00 ROS unobtainable: due to endotracheal tube All Systems: The remainder of the systems were reviewed and are negative Physical Examination Vital Signs: Vital Signs, Last 4 Hours Pulse Resp BP Pulse Ox 02/25/19 11:01 10 110/65 93 02/25/19 10:00 60 12 112/66 97 02/25/19 09:55 10 112/61 94 02/25/19 09:00 60 12 106/58 93 02/25/19 08:00 57 12 114/61 94 02/25/19 07:58 12 112/61 94 General appearance: no acute distress Eyes: nonicteric ENT: oropharynx moist Neck: supple Effort: normal Inspection: normal Auscultation: bilateral: clear Cardiovascular: regular rate and rhythm Gastrointestinal: normoactive bowel sounds, non-distended Integumentary: normal Extremities: no cyanosis, no edema, no clubbing Musculoskeletal: no deformities, ROM normal unable to assess due to mental status Ventilator Settings Ventilator Settings: Ventilator Settings, Last 8 Hours Ventilator Tidal Volume 500 Setting Ventilator Tidal Volume 500 Setting Ventilator Tidal Volume 500 Setting Ventilator Tidal Volume 500 Setting Ventilator Tidal Volume 500 Setting Ventilator Tidal Volume 600 Setting Ventilator Tidal Volume 600 Setting Ventilator Tidal Volume 600 Setting Ventilator Tidal Volume 600 Setting Ventilator Tidal Volume 600 Setting Ventilator Tidal Volume 600 Setting Ventilator Tidal Volume 600 Setting Ventilator Tidal Volume 600 Setting Ventilator Respiratory Rate 10 Setting Ventilator Respiratory Rate 12 Setting Ventilator Respiratory Rate 10 Setting Ventilator Respiratory Rate 12 Setting Ventilator Respiratory Rate 12 Setting Ventilator Respiratory Rate 12 Setting Ventilator Respiratory Rate 12 Setting Ventilator Respiratory Rate 12 Setting Ventilator Respiratory Rate 12 Setting Ventilator Respiratory Rate 12 Setting Ventilator Respiratory Rate 12 Setting Ventilator Respiratory Rate 12 Setting Ventilator Respiratory Rate 12 Setting Actual Respiratory Rate 10 Actual Respiratory Rate 12 Actual Respiratory Rate 10 Actual Respiratory Rate 12 Actual Respiratory Rate 12 Actual Respiratory Rate 12 Actual Respiratory Rate 12 Actual Respiratory Rate 12 Actual Respiratory Rate 12 Actual Respiratory Rate 12 Actual Respiratory Rate 12 Actual Respiratory Rate 12 Positive End Expiratory 8 Pressure Positive End Expiratory 8 Pressure Positive End Expiratory 8 Pressure Positive End Expiratory 8 Pressure Positive End Expiratory 8 Pressure Positive End Expiratory 8 Pressure Positive End Expiratory 8 Pressure Positive End Expiratory 5 Pressure Positive End Expiratory 8 Pressure Positive End Expiratory 5 Pressure Positive End Expiratory 8 Pressure Positive End Expiratory 8 Pressure Positive End Expiratory 8 Pressure Peak Inspiratory Airway 31 Pressure Peak Inspiratory Airway 33 Pressure Peak Inspiratory Airway 32 Pressure Peak Inspiratory Airway 34 Pressure Peak Inspiratory Airway 35 Pressure Peak Inspiratory Airway 33 Pressure Peak Inspiratory Airway 34 Pressure Peak Inspiratory Airway 36 Pressure Peak Inspiratory Airway 32 Pressure Peak Inspiratory Airway 31 Pressure Peak Inspiratory Airway 31 Pressure Peak Inspiratory Airway 34 Pressure Results - Laboratory Findings CBC and BMP: 02/25/19 06:06 02/25/19 06:06 ABG ABG pH 7.46 pH Units (7.32-7.45) H 02/25/19 05:12 ABG pCO2 68 mmHg (35-45) H 02/25/19 05:12 ABG pO2 73 mmHg (85-104) L 02/25/19 05:12 ABG O2 Saturation 94 % (95-98) L 02/25/19 05:12 PT/INR, D-dimer PT 48.2 Seconds (9.4-12.1) H* 02/25/19 04:38 Abnormal lab findings: Abnormal lab results RBC 3.41 M/mcL (4.19-5.50) L 02/25/19 06:06 Hgb 8.5 g/dL (12.9-16.9) L 02/25/19 06:06 Hct 30.5 % (37.5-50.1) L 02/25/19 06:06 MCH 24.9 pg (28.0-33.3) L 02/25/19 06:06 MCHC 27.9 g/dL (31.6-35.5) L 02/25/19 06:06 RDW 14.8 % (11.5-14.5) H 02/25/19 06:06 Hypochromasia Present (Not Present) A 02/25/19 06:06 Anisocytosis 1+ (Not Present) A 02/25/19 06:06 PT 48.2 Seconds (9.4-12.1) H* 02/25/19 04:38 APTT 52.7 Seconds (26.0-36.0) H 02/25/19 04:38 ABG pH 7.46 pH Units (7.32-7.45) H 02/25/19 05:12 ABG pCO2 68 mmHg (35-45) H 02/25/19 05:12 ABG pO2 73 mmHg (85-104) L 02/25/19 05:12 ABG HCO3 48 mEq/L (21-27) H 02/25/19 05:12 ABG Total CO2 > 50 mEq/L (20-26) H 02/25/19 05:12 ABG O2 Saturation 94 % (95-98) L 02/25/19 05:12 ABG Base Excess 21 mEq/L (-2 to 3) H 02/25/19 05:12 Chloride 91 mEq/L (98-107) L 02/25/19 06:06 Carbon Dioxide > 45 mEq/L (23-29) H* 02/25/19 06:06 BUN 21 mg/dL (6-20) H 02/25/19 06:06 Creatinine 0.62 mg/dL (0.70-1.30) L 02/25/19 06:06 BUN/Creatinine Ratio 34 (6-26) H 02/25/19 06:06 Glucose 133 mg/dL (70-105) H 02/25/19 06:06 Calculated Osmolality 303 (280-300) H 02/25/19 06:06 - Microbiology Findings Microbiology Findings: Microbiology, Last 48 Hours 02/25/19 07:38 Sputum Culture - Preliminary Sputum 02/24/19 22:22 Legionella Antigen - Final Urine,Xiong Port Streptococcus pneumoniae Antigen (M - Final 02/24/19 21:00 Blood Culture - Preliminary Peripheral Venipuncture Culture is incubating and being continuously monitor ed for growth. Final report to follow. 02/24/19 21:06 Blood Culture - Preliminary Peripheral Venipuncture Culture is incubating and being continuously monitored for growth. Final report to follow. - Clinical Findings Intake & Output: Intake & Output 02/24/19 02/25/19 02/25/19 23:59 07:59 15:59 Intake Total 600 / 600 612 / 800 188 / 800 Output Total 175 / 175 475 / 475 Balance 425 / 425 137 / 325 188 / 325 Weight 188 kg 188 kg Consult Discharge Plan - Plan Referrals: NONE,PCP [Primary Care Provider] - <Jas Frey W - Last Filed: 02/25/19 13:56> Date of Encounter: 02/25/19 All Systems: The remainder of the systems were reviewed and are negative Physical Examination Vital Signs: Vital Signs, Last 4 Hours Temp Pulse Resp BP Pulse Ox 02/25/19 13:10 10 112/67 94 02/25/19 13:00 60 10 115/64 94 02/25/19 12:00 60 10 112/67 94 08/26/19 11:56 98.1 F 02/25/19 11:01 10 110/65 93 02/25/19 11:00 61 12 110/65 95 02/25/19 10:00 60 12 112/66 97 02/25/19 09:55 10 112/61 94 Ventilator Settings Ventilator Settings: Ventilator Settings, Last 8 Hours Ventilator Tidal Volume 500 Setting Ventilator Tidal Volume 500 Setting Ventilator Tidal Volume 500 Setting Ventilator Tidal Volume 500 Setting Ventilator Tidal Volume 500 Setting Ventilator Tidal Volume 500 Setting Ventilator Tidal Volume 500 Setting Ventilator Tidal Volume 500 Setting Ventilator Tidal Volume 500 Setting Ventilator Tidal Volume 600 Setting Ventilator Tidal Volume 600 Setting Ventilator Tidal Volume 600 Setting Ventilator Tidal Volume 600 Setting Ventilator Respiratory Rate 10 Setting Ventilator Respiratory Rate 10 Setting Ventilator Respiratory Rate 10 Setting Ventilator Respiratory Rate 10 Setting Ventilator Respiratory Rate 10 Setting Ventilator Respiratory Rate 10 Setting Ventilator Respiratory Rate 10 Setting Ventilator Respiratory Rate 12 Setting Ventilator Respiratory Rate 12 Setting Ventilator Respiratory Rate 12 Setting Ventilator Respiratory Rate 12 Setting Ventilator Respiratory Rate 12 Setting Ventilator Respiratory Rate 12 Setting Actual Respiratory Rate 10 Actual Respiratory Rate 10 Actual Respiratory Rate 10 Actual Respiratory Rate 10 Actual Respiratory Rate 10 Actual Respiratory Rate 10 Actual Respiratory Rate 10 Actual Respiratory Rate 12 Actual Respiratory Rate 12 Actual Respiratory Rate 12 Actual Respiratory Rate 12 Actual Respiratory Rate 12 Actual Respiratory Rate 12 Positive End Expiratory 8 Pressure Positive End Expiratory 8 Pressure Positive End Expiratory 8 Pressure Positive End Expiratory 8 Pressure Positive End Expiratory 8 Pressure Positive End Expiratory 8 Pressure Positive End Expiratory 8 Pressure Positive End Expiratory 8 Pressure Positive End Expiratory 8 Pressure Positive End Expiratory 8 Pressure Positive End Expiratory 8 Pressure Positive End Expiratory 5 Pressure Positive End Expiratory 8 Pressure Peak Inspiratory Airway 31 Pressure Peak Inspiratory Airway 31 Pressure Peak Inspiratory Airway 38 Pressure Peak Inspiratory Airway 31 Pressure Peak Inspiratory Airway 32 Pressure Peak Inspiratory Airway 33 Pressure Peak Inspiratory Airway 32 Pressure Peak Inspiratory Airway 34 Pressure Peak Inspiratory Airway 35 Pressure Peak Inspiratory Airway 33 Pressure Peak Inspiratory Airway 34 Pressure Peak Inspiratory Airway 36 Pressure Peak Inspiratory Airway 32 Pressure Results - Laboratory Findings CBC and BMP: 02/25/19 06:06 02/25/19 06:06 ABG ABG pH 7.46 pH Units (7.32-7.45) H 02/25/19 05:12 ABG pCO2 68 mmHg (35-45) H 02/25/19 05:12 ABG pO2 73 mmHg (85-104) L 02/25/19 05:12 ABG O2 Saturation 94 % (95-98) L 02/25/19 05:12 PT/INR, D-dimer PT 48.2 Seconds (9.4-12.1) H* 02/25/19 04:38 Abnormal lab findings: Abnormal lab results RBC 3.41 M/mcL (4.19-5.50) L 02/25/19 06:06 Hgb 8.5 g/dL (12.9-16.9) L 02/25/19 06:06 Hct 30.5 % (37.5-50.1) L 02/25/19 06:06 MCH 24.9 pg (28.0-33.3) L 02/25/19 06:06 MCHC 27.9 g/dL (31.6-35.5) L 02/25/19 06:06 RDW 14.8 % (11.5-14.5) H 02/25/19 06:06 Hypochromasia Present (Not Present) A 02/25/19 06:06 Anisocytosis 1+ (Not Present) A 02/25/19 06:06 PT 48.2 Seconds (9.4-12.1) H* 02/25/19 04:38 APTT 52.7 Seconds (26.0-36.0) H 02/25/19 04:38 ABG pH 7.46 pH Units (7.32-7.45) H 02/25/19 05:12 ABG pCO2 68 mmHg (35-45) H 02/25/19 05:12 ABG pO2 73 mmHg (85-104) L 02/25/19 05:12 ABG HCO3 48 mEq/L (21-27) H 02/25/19 05:12 ABG Total CO2 > 50 mEq/L (20-26) H 02/25/19 05:12 ABG O2 Saturation 94 % (95-98) L 02/25/19 05:12 ABG Base Excess 21 mEq/L (-2 to 3) H 02/25/19 05:12 Chloride 91 mEq/L (98-107) L 02/25/19 06:06 Carbon Dioxide > 45 mEq/L (23-29) H* 02/25/19 06:06 BUN 21 mg/dL (6-20) H 02/25/19 06:06 Creatinine 0.62 mg/dL (0.70-1.30) L 02/25/19 06:06 BUN/Creatinine Ratio 34 (6-26) H 02/25/19 06:06 Glucose 133 mg/dL (70-105) H 02/25/19 06:06 Calculated Osmolality 303 (280-300) H 02/25/19 06:06 - Microbiology Findings Microbiology Findings: Microbiology, Last 48 Hours 02/25/19 07:38 Sputum Culture - Preliminary Sputum 02/24/19 22:22 Legionella Antigen - Final Urine,Xiong Port Streptococcus pneumoniae Antigen (M - Final 02/24/19 21:00 Blood Culture - Preliminary Peripheral Venipuncture Culture is incubating and being continuously monitored for growth. Final report to follow. 02/24/19 21:06 Blood Culture - Preliminary Peripheral Venipuncture Culture is incubating and being continuously monitored for growth. Final report to follow. - Clinical Findings Intake & Output: Intake & Output 02/24/19 02/25/19 02/25/19 23:59 07:59 15:59 Intake Total 600 / 600 612 / 900 288 / 900 Output Total 175 / 175 475 / 700 225 / 700 Balance 425 / 425 137 / 200 63 / 200 Weight 188 kg 188 kg - Attending Attestation I examined this patient and my medical decision-making was reviewed with the Resident Physician. I agree with the documented findings, disposition and treatment plan as described except to the extent set forth below. We independently had [id number] contact with the patient I spent 32min of Critical Care time with this patient. It involved decision making of high complexity to assess, manipulate, and support vital organ system failure and/or to prevent further life threatening deterioration of the pat ient's condition. The time involved in the performance of separately reportable procedures was not counted toward critical care time. Patient seen and examined at bedside Labs, radiology, chart personally reviewed. Management was reviewed during multidisciplinary critical care rounds. 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 Patient has had multiple episodes of respiratory failure requiring intubation and would likely benefit from long- term tracheostomy placement. Not a candidate for spontaneous breathing trial a day but will consider daily spontaneous breathing trial as clinically indicated. We will treat for COPD exacerbation and schedule bronchodilators. I decreased his minute ventilation to accommodate for overventilation given severe chronic nature of his respiratory failure to facilitate extubation. Cards: Blood pressure monitored and stable has a history of heart failure with preserved ejection fraction will restart diuretic tomorrow as not to further complicate contraction GI: Stress ulcer prophylaxis given Nutrition: Start trophic enteral nutrition per dietary recommendations Renal: Acute on chronic metabolic alkalosis which was induced by ventilator we will give him 2 courses of Diamox. Strict replacement of potassium and chlor stephani. UOP Monitored, Cont to Trend sCr and monitor Electrolytes. ID: Doubt active infection Procalcitonin wnl; WBC Normal; chest x-ray is relatively clear continue to monitor for now after stopping antibiotics Heme/Onc: DVT prophylaxis given Endo: Glucose Monitored Integ/MSK: Skin Care per routine ICU Nursing Protocol to prevent ulcers. Lines: All lines examined without evidence of infection : Dispo: Monitor in ICU for critical illness CODE: Full.
[2019-02-25] MEDS: Azithromycin 500 MG in 0.9 % Sodium Chloride 250 ML IVPB SCH (13:11)
[2019-02-25] MEDS ORDERED: *HR* Dextrose 50 % in Water (Syg) 50 ML SYRINGE IVP PRN (16:41)
[2019-02-25] MEDS ORDERED: Dextrose Gel 15 GM/37.5 ML TUBE PO PRN ×2 (16:41)
[2019-02-25] MEDS ORDERED: D5% in Water 1,000 ML IVC PRN (16:41)
[2019-02-25] MEDS ORDERED: *HR* Warfarin 4 MG TABLET PO SCH (18:00)
[2019-02-25] MEDS: MethylPREDNISolone 40 MG/ML VIAL IVP SCH (18:35)
[2019-02-25] MEDS: Insulin LISPRO 300 UNITS/3 ML VIAL SQ SCH ×2 (20:46→23:06)
[2019-02-26] MEDS: Ipratropium/Albuterol Neb 3 ML IH SCH ×4 (03:29→21:29)
[2019-02-26] MEDS: FentaNYL (PF) 1,000 MCG in 0.9 % Sodium Chloride 80 ML IVC SCH ×2 (04:35→19:50)
[2019-02-26] MEDS: Artificial Tears SOLN 15 ML BOTTLE BOTH EYES SCH ×6 (04:36→23:47)
[2019-02-26 04:44] LABS: ABG Base Excess 19 mEq/L (-2 to 3); ABG HCO3 50 mEq/L (21-27); ABG Oxygen Saturation 95 % (95-98); ABG PCO2 101 mmHg (35-45); ABG PO2 91 mmHg (85-104); ABG TCO2 > 50 mEq/L (20-26); Blood Gas Modality ASSIST CONTROL; Blood Gas PEEP 8 cm H2O; Blood Gas VT 500 cc
[2019-02-26] MEDS: Insulin LISPRO 300 UNITS/3 ML VIAL SQ SCH ×6 (04:58→23:47)
[2019-02-26] MEDS: MethylPREDNISolone 40 MG/ML VIAL IVP SCH ×2 (04:59→17:43)
[2019-02-26 05:07] LABS: Basophils % 0.1 %; Mean Corpuscular Hemoglobin 25.1 pg (28.0-33.3)
[2019-02-26 05:08] LABS: Hematocrit 32.7 % (37.5-50.1); Hemoglobin 9.1 g/dL (12.9-16.9); Immature Granulocytes % 0.7 % (0-4); Lymphocytes # 0.6 K/mcL (0.6-4.6); Lymphocytes % 6.4 %; Mean Corpuscular HGB Conc 27.8 g/dL (31.6-35.5); Mean Corpuscular Volume 90.1 fL (83.0-100.0); Mean Platelet Volume 9.6 fL (9.4-12.4); Monocytes # 0.4 K/mcL (0.0-1.3); Monocytes % 4.9 %; Neutrophils # 7.6 K/mcL (1.6-8.9); Platelet Count 196 K/mcL (140-400); Red Blood Count 3.63 M/mcL (4.19-5.50); Segmented Neutrophils % 87.9 %; White Blood Count 8.6 K/mcL (4.3-11.1)
[2019-02-26 05:15] LABS: INR 3.8
[2019-02-26 05:18] LABS: Prothrombin Time 43.7 Seconds (9.4-12.1)
[2019-02-26 05:35] LABS: Alanine Aminotransferase 10 Units/L (7-52); Albumin 3.2 g/dL (3.5-5.7); Albumin/Globulin Ratio 1.1 (1.1-2.2); Alkaline Phosphatase 72 Units/L (34-104); Aspartate Amino Transferase 14 Units/L (13-39); BUN/Creatinine Ratio 32 (6-26); Bilirubin,Total 0.3 mg/dL (0.3-1.0); Blood Urea Nitrogen 23 mg/dL (6-20); Calcium 8.7 mg/dL (8.6-10.3); Carbon Dioxide 44 mEq/L (23-29); Chloride 92 mEq/L (98-107); Globulin 2.9 g/dL (2.4-3.5); Glucose 143 mg/dL (70-105); Osmolality,Calculated 298 (280-300); Potassium 4.4 mEq/L (3.5-5.1); Sodium 141 mEq/L (136-145); Total Protein 6.1 g/dL (6.4-8.9); eGFR For African Americans > 60 (> 60); eGFR For Non-African Americans > 60 (> 60)
[2019-02-26 05:36] LABS: Hypochromasia Present (Not Present); Platelet Estimate Normal (Normal); Stomatocytes 2+ (Not Present)
--- NOTE | 2019-02-26 07:05 | Pulmonology Progress Note ---
<aTriq Funes - Last Filed: 02/26/19 10:47> Date of Encounter: 02/26/19 Time of Encounter: 07:05 Assessment and Plan (1) Acute on chronic respiratory failure with hypercapnia Current Visit: Yes Status: Acute - Patient initially presented to [place] with worsening SOB that did not improve with BiPAP; subsequently required intubation - Etiology unknown at this time; likely multiple contributory factors, including severe COPD, obesity hypoventilation syndrome, CHF, possible PNA - Per chart review, patient has a history of multiple admissions for acute respiratory failure requiring intubation - Known history of noncompliance for BiPAP and O2 at home Plan - Currently intubated and sedated; vent bundle and restraint orders in place - Will attempt extubation today - Stopped IV vancomycin and Zosyn for possible PNA - Started azithromycin for anti-inflammation, tx for possible PNA - Propofol and fentanyl ordered for sedation - Started precedex on 02/26 - ABG today: 7.3/101/91/50, improved - Scheduled DuoNebs, started prednisone 40mg IV BID - Stopped acetazolamide - Daily ABGs (2) Pneumonia Current Visit: Yes Status: Acute Assessment - Initially presented to [place] with respiratory distress with sputum production - History of multiple prior admissions, ICU stays requiring intubation for respiratory failure complicated by PNA - CXR after intubation showed increased L perihilar consolidation and volume loss and diffuse R pulmonary infiltrate - Causative organism unknown; per chart review, sputum CX on 12/15 grew pansensitive staph aureus - Does not meet SIRS criteria at this time Plan - Stopped vanc/zosyn, now on azithromycin for PNA - Urine Legionella, urine Streptococcus antigens neg - Trend CBC, CMPs Qualifiers: Pneumonia type: due to unspecified organism Laterality: unspecified la terality Lung location: unspecified part of lung Qualified Code(s): J18.9 - Pneumonia, unspecified organism (3) Paroxysmal atrial fibrillation Current Visit: Yes Status: Chronic - Rate controlled at this time, cont tele monitoring - Continue amiodarone - Stopped warfarin, INR is 3.8 today - Trend daily PT/INR, consider restart warfarin when stable (4) COPD (chronic obstructive pulmonary disease) Current Visit: Yes Status: Chronic - Normally dependent on 6 L of home O2 - Plan as documented above Qualifiers: COPD type: unspecified COPD Qualified Code(s): J44.9 - Chronic obstructive pulmonary disease, unspecified (5) GAVIN (obstructive sleep apnea) Current Visit: Yes Status: Chronic Chronic issue. Hx of noncompliance with BiPAP. - Current on vent. See plan above. (6) Hypertension Current Visit: Yes Status: Chronic - Resume home meds of carvedilol - PRN hydralazine Qualifiers: Hypertension type: essential hypertension Qualified Code(s): I10 - Essential (primary) hypertension (7) CHF (congestive heart failure) Current Visit: Yes Status: Chronic - Known history of CHF; takes lasix 40mg PO BID at home - No evidence of pulmonary vascular congestion on XR - No evidence of volume overload on exam - Gave one dose 40 mg lasix IV this morning Qualifiers: Qualified Code(s): I50.9 - Heart failure, unspecified (8) DVT prophylaxis Current Visit: Yes Status: Acute DVT PPX: SCDs, holding warfarin with supratherapeutic INR Analgesia: fentanyl Sedation: propofol, precedex SBT: daily Glycemic control: SSI Bowl regimen: none Activity: soft restraints Fluids: none Electrolytes: replete as necessary Nutrition: TF per nutrition recs GI ppx: PPI Lines: 2x PIVs, NG, ET, xiong Consults: pulm, nutrition Code: FULL CODE Dispo: pending further stabilization Subjective Principal diagnosis: hypoxia, hypercapnea Interval history: Patient was seen and examined at bedside. No acute events overnight. Patient is intubated and sedated at bedside. Does not appear to be in any discomfort or pain. Breath sounds are clear, does not respond to sternal rub. Objective PUL Vital signs: Last Vital Signs Temp 98.3 F 02/26/19 05:00 Pulse 60 02/26/19 06:00 Resp 14 02/26/19 06:00 BP 119/69 02/26/19 06:00 Pulse Ox 96 02/26/19 06:00 General appearance: no acute distress Eyes: nonicteric ENT: oropharynx moist Neck: supple Effort: normal Auscultation: bilateral: clear Cardiovascular: regular rate and rhythm Gastrointestinal: normoactive bowel sounds, non-distended Integumentary: normal Extremities: no cyanosis, no edema, no clubbing Musculoskeletal: no deformities, ROM normal unable to assess due to mental status Ventilator Settings Ventilator Settings: Ventilator Settings, Last 8 Hours Ventilator Tidal Volume 500 Setting Ventilator Tidal Volume 500 Setting Ventilator Tidal Volume 500 Setting Ventilator Tidal Volume 500 Setting Ventilator Tidal Volume 500 Setting Ventilator Tidal Volume 500 Setting Ventilator Tidal Volume 500 Setting Ventilator Tidal Volume 500 Setting Ventilator Tidal Volume 500 Setting Ventilator Tidal Volume 500 Setting Ventilator Tidal Volume 500 Setting Ventilator Tidal Volume 500 Setting Ventilator Respiratory Rate 14 Setting Ventilator Respiratory Rate 14 Setting Ventilator Respiratory Rate 14 Setting Ventilator Respiratory Rate 10 Setting Ventilator Respiratory Rate 10 Setting Ventilator Respiratory Rate 10 Setting Ventilator Respiratory Rate 10 Setting Ventilator Respiratory Rate 10 Setting Ventilator Respiratory Rate 10 Setting Ventilator Respiratory Rate 10 Setting Ventilator Respiratory Rate 10 Setting Ventilator Respiratory Rate 10 Setting Actual Respiratory Rate 14 Actual Respiratory Rate 14 Actual Respiratory Rate 14 Actual Respiratory Rate 10 Actual Respiratory Rate 10 Actual Respiratory Rate 10 Actual Respiratory Rate 10 Actual Respiratory Rate 10 Actual Respiratory Rate 10 Actual Respiratory Rate 10 Actual Respiratory Rate 10 Positive End Expiratory 8 Pressure Positive End Expiratory 8 Pressure Positive End Expiratory 8 Pressure Positive End Expiratory 8 Pressure Positive End Expiratory 8 Pressure Positive End Expiratory 8 Pressure Positive End Expiratory 8 Pressure Positive End Expiratory 8 Pressure Positive End Expiratory 8 Pressure Positive End Expiratory 8 Pressure Positive End Expiratory 8 Pressure Positive End Expiratory 8 Pressure Peak Inspiratory Airway 28 Pressure Peak Inspiratory Airway 28 Pressure Peak Inspiratory Airway 28 Pressure Peak Inspiratory Airway 28 Pressure Peak Inspiratory Airway 27 Pressure Peak Inspiratory Airway 27 Pressure Peak Inspiratory Airway 27 Pressure Peak Inspiratory Airway 27 Pressure Peak Inspiratory Airway 37 Pressure Peak Inspiratory Airway 27 Pressure Peak Inspiratory Airway 28 Pressure Results - Laboratory Findings CBC and BMP: 02/26/19 04:49 02/26/19 04:49 ABG ABG pH 7.30 pH Units (7.32-7.45) L 02/26/19 04:36 ABG pCO2 101 mmHg (35-45) H* 02/26/19 04:36 ABG pO2 91 mmHg (85-104) 02/26/19 04:36 ABG O2 Saturation 95 % (95-98) 02/26/19 04:36 PT/INR, D-dimer PT 43.7 Seconds (9.4-12.1) H* 02/26/19 04:49 Abnormal lab findings: Abnormal lab results RBC 3.63 M/mcL (4.19-5.50) L 02/26/19 04:49 Hgb 9.1 g/dL (12.9-16.9) L 02/26/19 04:49 Hct 32.7 % (37.5-50.1) L 02/26/19 04:49 MCH 25.1 pg (28.0-33.3) L 02/26/19 04:49 MCHC 27.8 g/dL (31.6-35.5) L 02/26/19 04:49 RDW 15.0 % (11.5-14.5) H 02/26/19 04:49 Hypochromasia Present (Not Present) A 02/26/19 04:49 Anisocytosis 1+ (Not Present) A 02/25/19 06:06 Stomatocytes 2+ (Not Present) A 02/26/19 04:49 PT 43.7 Seconds (9.4-12.1) H* 02/26/19 04:49 APTT 52.7 Seconds (26.0-36.0) H 02/25/19 04:38 ABG pH 7.30 pH Units (7.32-7.45) L 02/26/19 04:36 ABG pCO2 101 mmHg (35-45) H* 02/26/19 04:36 ABG pO2 73 mmHg (85-104) L 02/25/19 05:12 ABG HCO3 50 mEq/L (21-27) H 02/26/19 04:36 ABG Total CO2 > 50 mEq/L (20-26) H 02/26/19 04:36 ABG O2 Saturation 94 % (95-98) L 02/25/19 05:12 ABG Base Excess 19 mEq/L (-2 to 3) H 02/26/19 04:36 Chloride 92 mEq/L (98-107) L 02/26/19 04:49 Carbon Dioxide 44 mEq/L (23-29) H* 02/26/19 04:49 BUN 23 mg/dL (6-20) H 02/26/19 04:49 Creatinine 0.62 mg/dL (0.70-1.30) L 02/25/19 06:06 BUN/Creatinine Ratio 32 (6-26) H 02/26/19 04:49 Glucose 143 mg/dL (70-105) H 02/26/19 04:49 POC Glucose 150 mg/dL (70-99) H 02/26/19 04:52 Calculated Osmolality 303 (280-300) H 02/25/19 06:06 Serum Total Protein 6.1 g/dL (6.4-8.9) L 02/26/19 04:49 Albumin 3.2 g/dL (3.5-5.7) L 02/26/19 04:49 - Microbiology Findings Microbiology Findings: Microbiology, Last 48 Hours 02/25/19 07:38 Sputum Culture - Preliminary Sputum 02/24/19 22:22 Legionella Antigen - Final Urine,Xiong Port Streptococcus pneumoniae Antigen (M - Final 02/24/19 21:00 Blood Culture - Preliminary Peripheral Venipuncture Culture is incubating and being continuously monitored for growth. Final report to follow. 02/24/19 21:06 Blood Culture - Preliminary Peripheral Venipuncture Culture is incubating and being continuously monitored for growth. Final report to follow. - Clinical Findings Intake & Output: Intake & Output 02/25/19 02/25/19 02/26/19 15:59 23:59 07:59 Intake Total 838 / 2000 551 / 2001 556 / 556 Output Total 225 / 780 80 / 780 1000 / 1000 Balance 613 / 1221 471 / 1221 -444 / -444 Weight 188.5 kg Consult Discharge Plan - Plan Referrals: NONE,PCP [Primary Care Provider] - <Jas Frey W - Last Filed: 02/26/19 11:07> Date of Encounter: 02/26/19 Objective PUL Vital signs: Last Vital Signs Temp 98.5 F 02/26/19 07:03 Pulse 60 02/26/19 10:00 Resp 12 02/26/19 10:00 BP 125/81 02/26/19 10:00 Pulse Ox 96 02/26/19 10:00 Ventilator Settings Ventilator Settings: Ventilator Settings, Last 8 Hours Ventilator Tidal Volume 500 Setting Ventilator Tidal Volume 500 Setting Ventilator Tidal Volume 500 Setting Ventilator Tidal Volume 500 Setting Ventilator Tidal Volume 500 Setting Ventilator Tidal Volume 500 Setting Ventilator Tidal Volume 500 Setting Ventilator Tidal Volume 500 Setting Ventilator Tidal Volume 500 Setting Ventilator Tidal Volume 500 Setting Ventilator Tidal Volume 500 Setting Ventilator Tidal Volume 500 Setting Ventilator Respiratory Rate 14 Setting Ventilator Respiratory Rate 12 Setting Ventilator Respiratory Rate 14 Setting Ventilator Respiratory Rate 14 Setting Ventilator Respiratory Rate 14 Setting Ventilator Respiratory Rate 14 Setting Ventilator Respiratory Rate 14 Setting Ventilator Respiratory Rate 14 Setting Ventilator Respiratory Rate 14 Setting Ventilator Respiratory Rate 10 Setting Ventilator Respiratory Rate 10 Setting Ventilator Respiratory Rate 10 Setting Actual Respiratory Rate 14 Actual Respiratory Rate 12 Actual Respiratory Rate 14 Actual Respiratory Rate 14 Actual Respiratory Rate 14 Actual Respiratory Rate 14 Actual Respiratory Rate 14 Actual Respiratory Rate 14 Actual Respiratory Rate 14 Actual Respiratory Rate 10 Actual Respiratory Rate 10 Positive End Expiratory 8 Pressure Positive End Expiratory 8 Pressure Positive End Expiratory 8 Pressure Positive End Expiratory 8 Pressure Positive End Expiratory 8 Pressure Positive End Expiratory 8 Pressure Positive End Expiratory 8 Pressure Positive End Expiratory 8 Pressure Positive End Expiratory 8 Pressure Positive End Expiratory 8 Pressure Positive End Expiratory 8 Pressure Positive End Expiratory 8 Pressure Peak Inspiratory Airway 28 Pressure Peak Inspiratory Airway 29 Pressure Peak Inspiratory Airway 28 Pressure Peak Inspiratory Airway 30 Pressure Peak Inspiratory Airway 30 Pressure Peak Inspiratory Airway 30 Pressure Peak Inspiratory Airway 28 Pressure Peak Inspiratory Airway 28 Pressure Peak Inspiratory Airway 28 Pressure Peak Inspiratory Airway 28 Pressure Peak Inspiratory Airway 27 Pressure Results - Laboratory Findings CBC and BMP: 02/26/19 04:49 02/26/19 04:49 ABG ABG pH 7.30 pH Units (7.32-7.45) L 02/26/19 04:36 ABG pCO2 101 mmHg (35-45) H* 02/26/19 04:36 ABG pO2 91 mmHg (85-104) 02/26/19 04:36 ABG O2 Saturation 95 % (95-98) 02/26/19 04:36 PT/INR, D-dimer PT 43.7 Seconds (9.4-12.1) H* 02/26/19 04:49 Abnormal lab findings: Abnormal lab results RBC 3.63 M/mcL (4.19-5.50) L 02/26/19 04:49 Hgb 9.1 g/dL (12.9-16.9) L 02/26/19 04:49 Hct 32.7 % (37.5-50.1) L 02/26/19 04:49 MCH 25.1 pg (28.0-33.3) L 02/26/19 04:49 MCHC 27.8 g/dL (31.6-35.5) L 02/26/19 04:49 RDW 15.0 % (11.5-14.5) H 02/26/19 04:49 Hypochromasia Present (Not Present) A 02/26/19 04:49 Anisocytosis 1+ (Not Present) A 02/25/19 06:06 Stomatocytes 2+ (Not Present) A 02/26/19 04:49 PT 43.7 Seconds (9.4-12.1) H* 02/26/19 04:49 APTT 52.7 Seconds (26.0-36.0) H 02/25/19 04:38 ABG pH 7.30 pH Units (7.32-7.45) L 02/26/19 04:36 ABG pCO2 101 mmHg (35-45) H* 02/26/19 04:36 ABG pO2 73 mmHg (85-104) L 02/25/19 05:12 ABG HCO3 50 mEq/L (21-27) H 02/26/19 04:36 ABG Total CO2 > 50 mEq/L (20-26) H 02/26/19 04:36 ABG O2 Saturation 94 % (95-98) L 02/25/19 05:12 ABG Base Excess 19 mEq/L (-2 to 3) H 02/26/19 04:36 Chloride 92 mEq/L (98-107) L 02/26/19 04:49 Carbon Dioxide 44 mEq/L (23-29) H* 02/26/19 04:49 BUN 23 mg/dL (6-20) H 02/26/19 04:49 Creatinine 0.62 mg/dL (0.70-1.30) L 02/25/19 06:06 BUN/Creatinine Ratio 32 (6-26) H 02/26/19 04:49 Glucose 143 mg/dL (70-105) H 02/26/19 04:49 POC Glucose 150 mg/dL (70-99) H 02/26/19 04:52 Calculated Osmolality 303 (280-300) H 02/25/19 06:06 Serum Total Protein 6.1 g/dL (6.4-8.9) L 02/26/19 04:49 Albumin 3.2 g/dL (3.5-5.7) L 02/26/19 04:49 - Microbiology Findings Microbiology Findings: Microbiology, Last 48 Hours 02/25/19 07:38 Sputum Culture - Preliminary Sputum 02/24/19 22:22 Legionella Antigen - Final Urine,Xiong Port Streptococcus pneumoniae Antigen (M - Final 02/24/19 21:00 Blood Culture - Preliminary Peripheral Venipuncture Culture is incubating and being continuously monitored for growth. Final report to follow. 02/24/19 21:06 Blood Culture - Preliminary Peripheral Venipuncture Culture is incubating and being continuously monitored for growth. Final report to follow. - Clinical Findings Intake & Output: Intake & Output 02/25/19 02/26/19 02/26/19 23:59 07:59 15:59 Intake Total 551 / 2001 556 / 906 350 / 906 Output Total 80 / 780 1200 / 1200 Balance 471 / 1221 -644 / -294 350 / -294 Weight 188.5 kg - Attending Attestation I examined this patient and my medical decision-making was reviewed with the Resident Physician. I agree with the documented findings, disposition and treatment plan as described except to the extent set forth below. We independently had [id number] contact with the patient Patient seen and examined at bedside Labs, radiology, chart personally reviewed. Management was reviewed during multidisciplinary critical care rounds. [employer] C[employer]ODIAN: Persistent encephalopathy likely combination of metabolic nourishments and sedative effect we will continue to decrease sedation as tolerated for goal [place] 2 as we plan for liberation Pulm: Acute on chronic hypoxic hypercapnic respiratory failure improving gas exchange he has a relative respiratory acidosis which is is more beneficial at this point and alkalosis as we prepare for liberation goal pH should be greater than 7.3 with a PCO2 less than 100 we have augmented his minute ventilation to accommodate this slightly. Cards: Decompensated heart failure with preserved ejection fraction resume diuretic today blood pressure has been optimized GI: GI prophylaxis given Nutrition: Cont enteral nutrition Renal: Metabolic alkalosis is improving after Diamox UOP Monitored, Cont to Tr end sCr and monitor Electrolytes. ID: No clear evidence of infection continue to monitor Heme/Onc: DVT prophylaxis given Endo: Glucose Monitored Integ/MSK: Skin Care per routine ICU Nursing Protocol to prevent ulcers. Lines: All lines examined without evidence of infection : Dispo: Monitor in ICU for vent mngt. CODE: Full Code.
[2019-02-26] MEDS ORDERED: Furosemide 40 MG in 0.9 % Sodium Chloride 50 ML IV ONE (07:49)
[2019-02-26] MEDS: Chlorhexidine Rinse 15 ML MOUTHWASH MM SCH ×2 (08:13→21:20)
[2019-02-26] MEDS: Pantoprazole 40 MG VIAL IVP SCH (08:13)
[2019-02-26] MEDS: *HR* Amiodarone 200 MG TABLET PO SCH (08:14)
[2019-02-26] MEDS: Azithromycin 500 MG in 0.9 % Sodium Chloride 250 ML IVPB SCH (08:15)
[2019-02-26] MEDS ORDERED: Furosemide 40 MG/4 ML VIAL IVP ONE (08:15)
[2019-02-26] MEDS: Dexmedetomidine HCl 400 MCG/100 ML MLS IVC SCH ×2 (08:17→18:15)
[2019-02-26 08:45] LABS: Magnesium 2.4 mg/dL (1.6-2.6)
[2019-02-27] MEDS: Ipratropium/Albuterol Neb 3 ML IH SCH ×4 (03:47→21:46)
[2019-02-27] MEDS: Dexmedetomidine HCl 400 MCG/100 ML MLS IVC SCH (04:27)
[2019-02-27] MEDS: Artificial Tears SOLN 15 ML BOTTLE BOTH EYES SCH ×2 (04:29→07:38)
[2019-02-27] MEDS: Insulin LISPRO 300 UNITS/3 ML VIAL SQ SCH ×5 (04:33→21:12)
[2019-02-27 04:53] LABS: ABG Base Excess 19 mEq/L (-2 to 3); ABG HCO3 49 mEq/L (21-27); ABG Oxygen Saturation 94 % (95-98); ABG PCO2 90 mmHg (35-45); ABG PH 7.35 pH Units (7.32-7.45); ABG PO2 83 mmHg (85-104); ABG TCO2 > 50 mEq/L (20-26); Blood Gas Modality ASSIST CONTROL; Blood Gas PEEP 8 cm H2O; Blood Gas VT 500 cc
[2019-02-27 05:51] LABS: Hematocrit 34.2 % (37.5-50.1); Mean Corpuscular Hemoglobin 24.7 pg (28.0-33.3)
[2019-02-27 05:52] LABS: Hemoglobin 9.4 g/dL (12.9-16.9); Mean Corpuscular HGB Conc 27.5 g/dL (31.6-35.5); Mean Platelet Volume 9.8 fL (9.4-12.4); Platelet Count 205 K/mcL (140-400); Red Cell Distribution Width 14.7 % (11.5-14.5); White Blood Count 8.1 K/mcL (4.3-11.1)
[2019-02-27 05:59] LABS: INR 2.1; Prothrombin Time 24.4 Seconds (9.4-12.1)
[2019-02-27] MEDS: MethylPREDNISolone 40 MG/ML VIAL IVP SCH ×2 (06:12→17:12)
[2019-02-27 06:21] LABS: BUN/Creatinine Ratio 39 (6-26); Blood Urea Nitrogen 24 mg/dL (6-20); Calcium 8.8 mg/dL (8.6-10.3); Carbon Dioxide 43 mEq/L (23-29); Chloride 92 mEq/L (98-107); Glucose 130 mg/dL (70-105); Osmolality,Calculated 300 (280-300); Potassium 4.4 mEq/L (3.5-5.1); Sodium 142 mEq/L (136-145); eGFR For African Americans > 60 (> 60); eGFR For Non-African Americans > 60 (> 60)
[2019-02-27] MEDS: Pantoprazole 40 MG VIAL IVP SCH (07:36)
[2019-02-27] MEDS: Azithromycin 500 MG in 0.9 % Sodium Chloride 250 ML IVPB SCH (07:36)
[2019-02-27] MEDS: Chlorhexidine Rinse 15 ML MOUTHWASH MM SCH ×2 (07:36→20:00)
[2019-02-27] MEDS: *HR* Amiodarone 200 MG TABLET PO SCH (07:37)
[2019-02-27] MEDS ORDERED: Furosemide 40 MG/4 ML VIAL IVP ONE (07:48)
--- NOTE | 2019-02-27 08:31 | Pulmonology Progress Note ---
<Tariq Funes - Last Filed: 02/27/19 10:49> Date of Encounter: 02/27/19 Time of Encounter: 08:29 Assessment and Plan (1) Acute on chronic respiratory failure with hypercapnia Current Visit: Yes Status: Acute - Patient initially presented to [facility] with worsening SOB that did not improve with BiPAP; subsequently required intubation - Etiology unknown at this time; likely multiple contributory factors, including severe COPD, obesity hypoventilation syndrome, CHF, possible PNA - Per chart review, patient has a history of multiple admissions for acute respiratory failure requiring intubation - Known history of noncompliance for BiPAP and O2 at home Plan: - Successfully extubated on 02/27, currently on bipap setting 16/12 - Stopped fentanyl, propofol, precedex - Stopped IV vancomycin and Zosyn for possible PNA - Started azithromycin for anti-inflammation, tx for possible PNA - Cont duoNebs q6hrs - Cont prednisone 40mg IV BID - Stopped acetazolamide - Decreased lung sounds on left, CXR todays shows improvement with bilateral opacities/edema consistent with prior - Daily ABGs with improvement today (2) COPD exacerbation Current Visit: Yes Status: Acute Respiratory failure with hypoxia, hypercapnea likely due to COPD exacerbation. Non-compliant with bipap at home. Typically on 6L O2 at home. Plan: - Cont azithromycin - Currently extubated, on bipap - Cont duoNebs q6hrs - Cont prednisone 40mg IV BID (3) Pneumonia Current Visit: Yes Status: Resolved Assessment - Initially presented to [facility] with respiratory distress with sputum production - History of multiple prior admissions, ICU stays requiring intubation for respiratory failure complicated by PNA - CXR after intubation showed increased L perihilar consolidation and volume loss and diffuse R pulmonary infiltrate - Causative organism unknown; per chart review, sputum CX on 12/15 grew pansensitive staph aureus - Does not meet SIRS criteria at this time Plan - Stopped vanc/zosyn, now on azithromycin for PNA/COPD exacerbation - Urine Legionella, urine Streptococcus antigens neg - Sputum culture negative - Blood cultures pending - Trend CBC, CMPs Qualifiers: Pneumonia type: due to unspecified organism Laterality: unspecified laterality Lung location: unspecified part of lung Qualified Code(s): J18.9 - Pneumonia, unspecified organism (4) Paroxysmal atrial fibrillation Current Visit: Yes Status: Chronic - Rate controlled at this time, cont tele monitoring - Continue amiodarone - Stopped warfarin, INR is 2.1 today - Trend daily PT/INR, consider restart warfarin when tolerate PO (5) GAVIN (obstructive sleep apnea) Current Visit: Yes Status: Chronic Chronic issue. Hx of noncompliance with BiPAP. - Currently extubated. See plan above. (6) Hypertension Current Visit: Yes Status: Chronic - Resume home meds of carvedilol - PRN hydralazine Qualifiers: Hypertension type: essential hypertension Qualified Code(s): I10 - Essential (primary) hypertension (7) CHF (congestive heart failure) Current Visit: Yes Status: Chronic - Known history of CHF; takes lasix 40mg PO BID at home - No evidence of pulmonary vascular congestion on XR - No evidence of volume overload on exam - Gave one dose 40 mg lasix IV this morning Qualifiers: Qualified Code(s): I50.9 - Heart failure, unspecified (8) Depression Current Visit: Yes Status: Chronic Chronic issue. - Consider restart home celexa when able tolerate PO Qualifiers: Depression Type: unspecified Qualified Code(s): F32.9 - Major depressive disorder, single episode, unspecified (9) DVT prophylaxis Current Visit: Yes Status: Acute DVT PPX: SCDs, holding warfarin until tolerate PO Analgesia: fentanyl stopped Sedation: propofol/precedex stopped SBT: extubated 02/27 Glycemic control: SSI Bowl regimen: none Activity: soft restraints Fluids: none Electrolytes: replete as necessary Nutrition: TF per nutrition recs GI ppx: PPI Lines: 2x PIVs, NG, xiong Consults: pulm, nutrition Code: FULL CODE Dispo: pending further stabilization Subjective Principal diagnosis: hypoxia, hypercapnea Interval history: Patient was seen and examined at bedside. No acute events overnight. Patient w as extubated this mornining and now on Bipap, tolerating well, with sats 94-95%. GCS 15. No complaints. Responding well to commands. Breath sounds are clear, but some decreased breath sounds on the L side. Objective PUL Vital signs: Last Vital Signs Temp 98.5 F 02/27/19 07:43 Pulse 60 02/27/19 08:00 Resp 15 02/27/19 08:12 BP 149/94 02/27/19 08:12 Pulse Ox 96 02/27/19 08:12 General appearance: no acute distress Eyes: nonicteric ENT: oropharynx moist Neck: supple Effort: normal Auscultation: left: diminished breath sounds, right: clear Cardiovascular: regular rate and rhythm Gastrointestinal: normoactive bowel sounds, non-distended Integumentary: normal Extremities: no cyanosis, no edema, no clubbing Musculoskeletal: no deformities, ROM normal normal mental status, non-focal exam Ventilator Settings Ventilator Settings: Ventilator Settings, Last 8 Hours Ventilator Tidal Volume 500 Setting Ventilator Tidal Volume 500 Setting Ventilator Tidal Volume 500 Setting Ventilator Tidal Volume 500 Setting Ventilator Tidal Volume 500 Setting Ventilator Tidal Volume 500 Setting Ventilator Tidal Volume 500 Setting Ventilator Tidal Volume 500 Setting Ventilator Tidal Volume 500 Setting Ventilator Tidal Volume 500 Setting Ventilator Respiratory Rate 12 Setting Ventilator Respiratory Rate 12 Setting Ventilator Respiratory Rate 12 Setting Ventilator Respiratory Rate 12 Setting Ventilator Respiratory Rate 12 Setting Ventilator Respiratory Rate 12 Setting Ventilator Respiratory Rate 12 Setting Ventilator Respiratory Rate 12 Setting Ventilator Respiratory Rate 12 Setting Ventilator Respiratory Rate 12 Setting Actual Respiratory Rate 12 Actual Respiratory Rate 14 Actual Respiratory Rate 12 Actual Respiratory Rate 12 Actual Respiratory Rate 12 Actual Respiratory Rate 13 Actual Respiratory Rate 13 Actual Respiratory Rate 13 Actual Respiratory Rate 13 Actual Respiratory Rate 12 Actual Respiratory Rate 12 Positive End Expiratory 8 Pressure Positive End Expiratory 8 Pressure Positive End Expiratory 8 Pressure Positive End Expiratory 8 Pressure Positive End Expiratory 8 Pressure Positive End Expiratory 8 Pressure Positive End Expiratory 8 Pressure Positive End Expiratory 8 Pressure Positive End Expiratory 8 Pressure Positive End Expiratory 8 Pressure Positive End Expiratory 8 Pressure Positive End Expiratory 8 Pressure Positive End Expiratory 8 Pressure Positive End Expiratory 8 Pressure Peak Inspiratory Airway 17 Pressure Peak Inspiratory Airway 16 Pressure Peak Inspiratory Airway 26 Pressure Peak Inspiratory Airway 28 Pressure Peak Inspiratory Airway 26 Pressure Peak Inspiratory Airway 28 Pressure Peak Inspiratory Airway 26 Pressure Peak Inspiratory Airway 28 Pressure Peak Inspiratory Airway 28 Pressure Peak Inspiratory Airway 24 Pressure Peak Inspiratory Airway 26 Pressure Results - Laboratory Findings CBC and BMP: 02/27/19 04:33 02/27/19 04:33 ABG ABG pH 7.35 pH Units (7.32-7.45) 02/27/19 04:47 ABG pCO2 90 mmHg (35-45) H* 02/27/19 04:47 ABG pO2 83 mmHg (85-104) L 02/27/19 04:47 ABG O2 Saturation 94 % (95-98) L 02/27/19 04:47 PT/INR, D-dimer PT 24.4 Seconds (9.4-12.1) H 02/27/19 04:33 Abnormal lab findings: Abnormal lab results RBC 3.80 M/mcL (4.19-5.50) L 02/27/19 04:33 Hgb 9.4 g/dL (12.9-16.9) L 02/27/19 04:33 Hct 34.2 % (37.5-50.1) L 02/27/19 04:33 MCH 24.7 pg (28.0-33.3) L 02/27/19 04:33 MCHC 27.5 g/dL (31.6-35.5) L 02/27/19 04:33 RDW 14.7 % (11.5-14.5) H 02/27/19 04:33 Hypochromasia Present (Not Present) A 02/26/19 04:49 Anisocytosis 1+ (Not Present) A 02/25/19 06:06 Stomatocytes 2+ (Not Present) A 02/26/19 04:49 PT 24.4 Seconds (9.4-12.1) H 02/27/19 04:33 APTT 52.7 Seconds (26.0-36.0) H 02/25/19 04:38 ABG pH 7.30 pH Units (7.32-7.45) L 02/26/19 04:36 ABG pCO2 90 mmHg (35-45) H* 02/27/19 04:47 ABG pO2 83 mmHg (85-104) L 02/27/19 04:47 ABG HCO3 49 mEq/L (21-27) H 02/27/19 04:47 ABG Total CO2 > 50 mEq/L (20-26) H 02/27/19 04:47 ABG O2 Saturation 94 % (95-98) L 02/27/19 04:47 ABG Base Excess 19 mEq/L (-2 to 3) H 02/27/19 04:47 Chloride 92 mEq/L (98-107) L 02/27/19 04:33 Carbon Dioxide 43 mEq/L (23-29) H* 02/27/19 04:33 BUN 24 mg/dL (6-20) H 02/27/19 04:33 Creatinine 0.61 mg/dL (0.70-1.30) L 02/27/19 04:33 BUN/Creatinine Ratio 39 (6-26) H 02/27/19 04:33 Glucose 130 mg/dL (70-105) H 02/27/19 04:33 POC Glucose 172 mg/dL (70-99) H 02/26/19 23:44 Calculated Osmolality 303 (280-300) H 02/25/19 06:06 Serum Total Protein 6.1 g/dL (6.4-8.9) L 02/26/19 04:49 Albumin 3.2 g/dL (3.5-5.7) L 02/26/19 04:49 - Microbiology Findings Microbiology Findings: Microbiology, Last 48 Hours 02/25/19 07:38 Sputum Culture - Final Sputum - Clinical Findings Intake & Output: Intake & Output 02/26/19 02/27/19 02/27/19 23:59 07:59 15:59 Intake Total 585 / 1591 404 / 404 Output Total 550 / 3250 650 / 650 Balance 35 / -1659 -246 / -246 Weight 187.5 kg Consult Discharge Plan - Plan Referrals: NONE,PCP [Primary Care Provider] - <Jas Frey - Last Filed: 02/27/19 12:20> Date of Encounter: 02/27/19 Objective PUL Vital signs: Last Vital Signs Temp 98.0 F 02/27/19 11:26 Pulse 60 02/27/19 10:00 Resp 14 02/27/19 10:00 BP 133/84 02/27/19 10:00 Pulse Ox 95 02/27/19 10:00 Ventilator Settings Ventilator Settings: Ventilator Settings, Last 8 Hours Ventilator Tidal Volume 500 Setting Ventilator Tidal Volume 500 Setting Ventilator Tidal Volume 500 Setting Ventilator Tidal Volume 500 Setting Ventilator Respiratory Rate 12 Setting Ventilator Respiratory Rate 12 Setting Ventilator Respiratory Rate 12 Setting Ventilator Respiratory Rate 12 Setting Actual Respiratory Rate 12 Actual Respiratory Rate 14 Actual Respiratory Rate 12 Actual Respiratory Rate 12 Actual Respiratory Rate 12 Positive End Expiratory 8 Pressure Positive End Expiratory 8 Pressure Positive End Expiratory 8 Pressure Positive End Expiratory 8 Pressure Positive End Expiratory 8 Pressure Positive End Expiratory 8 Pressure Positive End Expiratory 8 Pressure Positive End Expiratory 8 Pressure Peak Inspiratory Airway 17 Pressure Peak Inspiratory Airway 16 Pressure Peak Inspiratory Airway 26 Pressure Peak Inspiratory Airway 28 Pressure Peak Inspiratory Airway 26 Pressure Results - Laboratory Findings CBC and BMP: 02/27/19 04:33 02/27/19 04:33 ABG ABG pH 7.35 pH Units (7.32-7.45) 02/27/19 04:47 ABG pCO2 90 mmHg (35-45) H* 02/27/19 04:47 ABG pO2 83 mmHg (85-104) L 02/27/19 04:47 ABG O2 Saturation 94 % (95-98) L 02/27/19 04:47 PT/INR, D-dimer PT 24.4 Seconds (9.4-12.1) H 02/27/19 04:33 Abnormal lab findings: Abnormal lab results RBC 3.80 M/mcL (4.19-5.50) L 02/27/19 04:33 Hgb 9.4 g/dL (12.9-16.9) L 02/27/19 04:33 Hct 34.2 % (37.5-50.1) L 02/27/19 04:33 MCH 24.7 pg (28.0-33.3) L 02/27/19 04:33 MCHC 27.5 g/dL (31.6-35.5) L 02/27/19 04:33 RDW 14.7 % (11.5-14.5) H 02/27/19 04:33 Hypochromasia Present (Not Present) A 02/26/19 04:49 Anisocytosis 1+ (Not Present) A 02/25/19 06:06 Stomatocytes 2+ (Not Present) A 02/26/19 04:49 PT 24.4 Seconds (9.4-12.1) H 02/27/19 04:33 APTT 52.7 Seconds (26.0-36.0) H 02/25/19 04:38 ABG pH 7.30 pH Units (7.32-7.45) L 02/26/19 04:36 ABG pCO2 90 mmHg (35-45) H* 02/27/19 04:47 ABG pO2 83 mmHg (85-104) L 02/27/19 04:47 ABG HCO3 49 mEq/L (21-27) H 02/27/19 04:47 ABG Total CO2 > 50 mEq/L (20-26) H 02/27/19 04:47 ABG O2 Saturation 94 % (95-98) L 02/27/19 04:47 ABG Base Excess 19 mEq/L (-2 to 3) H 02/27/19 04:47 Chloride 92 mEq/L (98-107) L 02/27/19 04:33 Carbon Dioxide 43 mEq/L (23-29) H* 02/27/19 04:33 BUN 24 mg/dL (6-20) H 02/27/19 04:33 Creatinine 0.61 mg/dL (0.70-1.30) L 02/27/19 04:33 BUN/Creatinine Ratio 39 (6-26) H 02/27/19 04:33 Glucose 130 mg/dL (70-105) H 02/27/19 04:33 POC Glucose 172 mg/dL (70-99) H 02/26/19 23:44 Calculated Osmolality 303 (280-300) H 02/25/19 06:06 Serum Total Protein 6.1 g/dL (6.4-8.9) L 02/26/19 04:49 Albumin 3.2 g/dL (3.5-5.7) L 02/26/19 04:49 - Microbiology Findings Microbiology Findings: Microbiology, Last 48 Hours 02/25/19 07:38 Sputum Culture - Final Sputum - Clinical Findings Intake & Output: Intake & Output 02/26/19 02/27/19 02/27/19 23:59 07:59 15:59 Intake Total 585 / 1591 416 / 766 350 / 766 Output Total 550 / 3250 650 / 1650 1000 / 1650 Balance 35 / -1659 -234 / -884 -650 / -884 Weight 187.5 kg - Attending Attestation I examined this patient and my medical decision-making was reviewed with the Resident Physician. I agree with the documented findings, disposition and treatment plan as described except to the extent set forth below. We in dependently had [id number] contact with the patient Patient seen and examined at bedside Labs, radiology, chart personally reviewed. Management was reviewed during multidisciplinary critical care rounds. PHARMACY PICKING TECH: The patient is awake and able to follow commands he is at risk for delirium We will focus on scientologist of sleep-wake cycle. avoid sensory deprivation, and avoid PHARMACY PICKING TECH depressant medications as able. Pulm: Acute on chronic hypoxic hypercapnic respiratory failure secondary to COPD exacerbation and decompensated heart failure successfully liberated from the ventilator today we will continue BiPAP for now with plan to transition to nasal cannula and patient will need BiPAP at night and during times of sleep; will again discuss with the patient possibility of tracheostomy placement for recurrent intubation for respiratory failure and noncompliance with noninvasive ventilation at home Cards: Blood pressure monitored and stable. Continue diuresis for decompensated heart failure GI: Continue to monitor Nutrition: Once off BiPAP can advance diet as tolerated Renal: UOP Monitored, Cont to Trend sCr and monitor Electrolytes. ID: He is on macrolide antibiotic for COPD exacerbation Heme/Onc: Resume home warfarin for LTA for Afib Endo: Glucose Monitored Integ/MSK: Skin Care per routine ICU Nursing Protocol to prevent ulcers. Lines: All lines examined without evidence of infection : Dispo: monitored ICU postextubation CODE: Full
[2019-02-27] MEDS ORDERED: Warfarin perPT PO SCH (18:00)
[2019-02-27] MEDS ORDERED: *HR* Warfarin 5 MG TABLET PO ONE (18:00)
[2019-02-28] MEDS: Insulin LISPRO 300 UNITS/3 ML VIAL SQ SCH ×7 (03:02→23:27)
[2019-02-28 03:55] LABS: Mean Platelet Volume 9.1 fL (9.4-12.4); Red Cell Distribution Width 14.7 % (11.5-14.5)
[2019-02-28 03:56] LABS: Hematocrit 35.1 % (37.5-50.1); Hemoglobin 9.7 g/dL (12.9-16.9); Mean Corpuscular HGB Conc 27.6 g/dL (31.6-35.5); Mean Corpuscular Hemoglobin 24.9 pg (28.0-33.3); Mean Corpuscular Volume 90.2 fL (83.0-100.0); Platelet Count 206 K/mcL (140-400); Red Blood Count 3.89 M/mcL (4.19-5.50); White Blood Count 8.7 K/mcL (4.3-11.1)
[2019-02-28 04:02] LABS: INR 1.8
[2019-02-28] MEDS: Ipratropium/Albuterol Neb 3 ML IH SCH ×5 (04:11→21:26)
[2019-02-28 04:17] LABS: BUN/Creatinine Ratio 42 (6-26); Blood Urea Nitrogen 27 mg/dL (6-20); Calcium 8.9 mg/dL (8.6-10.3); Carbon Dioxide > 45 mEq/L (23-29); Chloride 94 mEq/L (98-107); Glucose 102 mg/dL (70-105); Osmolality,Calculated 303 (280-300); Phosphorous 3.1 mg/dL (2.7-4.5); Potassium 4.3 mEq/L (3.5-5.1); Sodium 144 mEq/L (136-145); eGFR For African Americans > 60 (> 60); eGFR For Non-African Americans > 60 (> 60)
[2019-02-28] MEDS: MethylPREDNISolone 40 MG/ML VIAL IVP SCH (06:01)
--- NOTE | 2019-02-28 06:55 | Pulmonology Progress Note ---
<TkJas W - Last Filed: 02/28/19 09:06> Date of Encounter: 02/28/19 Objective PUL Vital signs: Last Vital Signs Temp 98.8 F 02/28/19 07:00 Pulse 73 02/28/19 08:00 Resp 14 02/28/19 08:00 BP 135/77 02/28/19 08:00 Pulse Ox 95 02/28/19 08:00 Results - Laboratory Findings CBC and BMP: 02/28/19 03:43 02/28/19 03:43 ABG ABG pH 7.35 pH Units (7.32-7.45) 02/27/19 04:47 ABG pCO2 90 mmHg (35-45) H* 02/27/19 04:47 ABG pO2 83 mmHg (85-104) L 02/27/19 04:47 ABG O2 Saturation 94 % (95-98) L 02/27/19 04:47 PT/INR, D-dimer PT 21.0 Seconds (9.4-12.1) H 02/28/19 03:43 Abnormal lab findings: Abnormal lab results RBC 3.89 M/mcL (4.19-5.50) L 02/28/19 03:43 Hgb 9.7 g/dL (12.9-16.9) L 02/28/19 03:43 Hct 35.1 % (37.5-50.1) L 02/28/19 03:43 MCH 24.9 pg (28.0-33.3) L 02/28/19 03:43 MCHC 27.6 g/dL (31.6-35.5) L 02/28/19 03:43 RDW 14.7 % (11.5-14.5) H 02/28/19 03:43 MPV 9.1 fL (9.4-12.4) L 02/28/19 03:43 Hypochromasia Present (Not Present) A 02/26/19 04:49 Anisocytosis 1+ (Not Present) A 02/25/19 06:06 Stomatocytes 2+ (Not Present) A 02/26/19 04:49 PT 21.0 Seconds (9.4-12.1) H 02/28/19 03:43 APTT 52.7 Seconds (26.0-36.0) H 02/25/19 04:38 ABG pH 7.30 pH Units (7.32-7.45) L 02/26/19 04:36 ABG pCO2 90 mmHg (35-45) H* 02/27/19 04:47 ABG pO2 83 mmHg (85-104) L 02/27/19 04:47 ABG HCO3 49 mEq/L (21-27) H 02/27/19 04:47 ABG Total CO2 > 50 mEq/L (20-26) H 02/27/19 04:47 ABG O2 Saturation 94 % (95-98) L 02/27/19 04:47 ABG Base Excess 19 mEq/L (-2 to 3) H 02/27/19 04:47 Chloride 94 mEq/L (98-107) L 02/28/19 03:43 Carbon Dioxide > 45 mEq/L (23-29) H* 02/28/19 03:43 BUN 27 mg/dL (6-20) H 02/28/19 03:43 Creatinine 0.64 mg/dL (0.70-1.30) L 02/28/19 03:43 BUN/Creatinine Ratio 42 (6-26) H 02/28/19 03:43 Glucose 130 mg/dL (70-105) H 02/27/19 04:33 POC Glucose 114 mg/dL (70-99) H 02/27/19 20:11 Calculated Osmolality 303 (280-300) H 02/28/19 03:43 Serum Total Protein 6.1 g/dL (6.4-8.9) L 02/26/19 04:49 Albumin 3.2 g/dL (3.5-5.7) L 02/26/19 04:49 - Microbiology Findings Microbiology Findings: Microbiology, Last 48 Hours 02/25/19 07:38 Sputum Culture - Final Sputum - Clinical Findings Intake & Output: Intake & Output 02/27/19 02/28/19 02/28/19 23:59 07:59 15:59 Output Total 250 / 2600 850 / 850 Balance -250 / -1654 -850 / -850 Weight 188 kg Consult Discharge Plan - Plan Referrals: NONE,PCP [Primary Care Provider] - - Attending Attestation I examined this patient and my medical decision-making was reviewed with the Resident Physician. I agree with the documented findings, disposition and treatment plan as described except to the extent set forth below. We independently had vowr-on-ziza contact with the patient Patient seen and examined at bedside Labs, radiology, chart personally reviewed. Management was reviewed during multidisciplinary critical care rounds. 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 Will treat with a steroid taper and schedule bronchodilators for COPD exacerbation Cards: Been sedated heart failure continued diuresis appears to be improving GI: Continue to monitor Nutrition: Advance diet as tolerated Renal: UOP Monitored, Cont to Trend sCr and monitor Electrolytes. ID: Will complete 5 days a macrolide for COPD exacerbation Heme/Onc: DVT prophylaxis will be given today and warfarin was restarted so he should be therapeutic in the next 24-48 hours Endo: Glucose Monitored Integ/MSK: Skin Care per routine ICU Nursing Protocol to prevent ulcers. Lines: All lines examined without evidence of infection : Dispo: Stable for transfer to second floor telemetry for ongoing care; patient will need follow-up in pulmonary clinic in the 2-4 weeks of the time of discharge CODE: Remains full code. I did have an extensive conversation with the patient regarding the chronicity of his symptoms and high probability that he will have respiratory failure and I unless he has better compliance with noninvasive ventilation I also discussed the possibility of tracheostomy is a stop gap therapy for his condition he adamantly refused to discuss this. <Tariq Funes - Last Filed: 02/28/19 10:33> Date of Encounter: 02/28/19 Time of Encounter: 06:55 Assessment and Plan (1) Acute on chronic respiratory failure with hypercapnia Current Visit: Yes Status: Acute - Patient initially presented to [facility] with worsening SOB that did not improve with BiPAP; subsequently required intubation - Etiology unknown at this time; likely multiple contributory factors, including severe COPD, obesity hypoventilation syndrome, CHF, possible PNA - Per chart review, patient has a history of multiple admissions for acute respiratory failure requiring intubation - Known history of noncompliance for BiPAP and O2 at home Plan: - Successfully extubated on 02/27, currently on bipap setting 16/6; Home bipap settings (AVAPS): 6LPM, TV 500, RR 12, PEEP 8 - Will be NPO for now except for meds given possible aspiration risk; desat to 70% when switched to high flow O2 - Stopped fentanyl, propofol, precedex - Stopped IV vancomycin and Zosyn for possible PNA - Started azithromycin on 02/25 for anti-inflammation, tx for possible PNA - Cont duoNebs q6hrs - Transitioned prednisone 40mg IV BID to PO form (2) COPD exacerbation Current Visit: Yes Status: Acute Respiratory failure with hypoxia, hypercapnea likely due to COPD exacerbation. Non-compliant with bipap at home. Typically on 6L O2 at home. Plan: - Cont azithromycin - Currently extubated, on bipap - Cont duoNebs q6hrs - Cont prednisone 40mg IV PO (3) Pneumonia Current Visit: Yes Status: Resolved Assessment - Initially presented to [facility] with respiratory distress with sputum production - History of multiple prior admissions, ICU stays requiring intubation for respiratory failure complicated by PNA - CXR after intubation showed increased L perihilar consolidation and volume loss and diffuse R pulmonary infiltrate - Causative organism unknown; per chart review, sputum CX on 12/15 grew pansensitive staph aureus - Does not meet SIRS criteria at this time Plan - Stopped vanc/zosyn, now on azithromycin for PNA/COPD exacerbation - Urine Legionella, urine Streptococcus antigens neg - Sputum culture negative - Blood cultures pending - Trend CBC, CMPs Qualifiers: Pneumonia type: due to unspecified organism Laterality: unspecified laterality Lung location: unspecified part of lung Qualified Code(s): J18.9 - Pneumonia, unspecified organism (4) Paroxysmal atrial fibrillation Current Visit: Yes Status: Chronic - Rate controlled at this time, cont tele monitoring - Continue amiodarone - Restarted warfarin - INR 1.8 today, will give SQ heparin for 24 hours - Trend daily PT/INR (5) GAVIN (obstructive sleep apnea) Current Visit: Yes Status: Chronic Chronic issue. Hx of noncompliance with BiPAP. - Currently extubated. See plan above. (6) Hypertension Current Visit: Yes Status: Chronic - Resume home meds of carvedilol - PRN hydralazine Qualifiers: Hypertension type: essential hypertension Qualified Code(s): I10 - Essential (primary) hypertension (7) CHF (congestive heart failure) Current Visit: Yes Status: Chronic - Known history of CHF; takes lasix 40mg PO BID at home - No evidence of pulmonary vascular congestion on XR - No evidence of volume overload on exam - Started lasix 40 mg IVP daily Qualifiers: Qualified Code(s): I50.9 - Heart failure, unspecified (8) Depression Current Visit: Yes Status: Chronic Chronic issue. - Restarted home celexa Qualifiers: Depression Type: unspecified Qualified Code(s): F32.9 - Major depressive disorder, single episode, unspecified (9) DVT prophylaxis Current Visit: Yes Status: Acute DVT PPX: SCDs, warfarin, Hep SQ for 24 hours d/t INR 1.8 Analgesia: fentanyl stopped Sedation: propofol/precedex stopped SBT: extubated 02/27 Glycemic control: SSI Bowl regimen: none Activity: as tolerated Fluids: none Electrolytes: replete as necessary Nutrition: TF per nutrition recs GI ppx: PPI Lines: 2x PIVs, NG, xiong Consults: pulm, nutrition Code: FULL CODE Dispo: pending further stabilization Subjective Principal diagnosis: hypoxia, hypercapnea Interval history: Patient was seen and examined at bedside. No acute events overnight. Patient was extubated this yesterday and now on Bipap, tolerating well, with sats 94- 95%. GCS 15. AAOx3. No complaints. Slept well on bipap. Responding well to commands. Breath sounds are clear, but some decreased breath sounds on the L side. Lifted the blinds to help reorient him to day/night cycles. Objective PUL Vital signs: Last Vital Signs Temp 98.5 F 02/27/19 15:40 Pulse 64 02/28/19 06:00 Resp 14 02/28/19 06:00 BP 119/70 02/28/19 06:00 Pulse Ox 94 02/28/19 06:00 General appearance: no acute distress Eyes: nonicteric ENT: oropharynx moist Neck: supple Effort: normal Auscultation: bilateral: clear Cardiovascular: regular rate and rhythm Gastrointestinal: normoactive bowel sounds, non-distended Integumentary: normal Extremities: no cyanosis, no edema, no clubbing Musculoskeletal: no deformities, ROM normal normal mental status, non-focal exam mood appropriate, affect normal Results - Laboratory Findings CBC and BMP: 02/28/19 03:43 02/28/19 03:43 ABG ABG pH 7.35 pH Units (7.32-7.45) 02/27/19 04:47 ABG pCO2 90 mmHg (35-45) H* 02/27/19 04:47 ABG pO2 83 mmHg (85-104) L 02/27/19 04:47 ABG O2 Saturation 94 % (95-98) L 02/27/19 04:47 PT/INR, D-dimer PT 21.0 Seconds (9.4-12.1) H 02/28/19 03:43 Abnormal lab findings: Abnormal lab results RBC 3.89 M/mcL (4.19-5.50) L 02/28/19 03:43 Hgb 9.7 g/dL (12.9-16.9) L 02/28/19 03:43 Hct 35.1 % (37.5-50.1) L 02/28/19 03:43 MCH 24.9 pg (28.0-33.3) L 02/28/19 03:43 MCHC 27.6 g/dL (31.6-35.5) L 02/28/19 03:43 RDW 14.7 % (11.5-14.5) H 02/28/19 03:43 MPV 9.1 fL (9.4-12.4) L 02/28/19 03:43 Hypochromasia Present (Not Present) A 02/26/19 04:49 Anisocytosis 1+ (Not Present) A 02/25/19 06:06 Stomatocytes 2+ (Not Present) A 02/26/19 04:49 PT 21.0 Seconds (9.4-12.1) H 02/28/19 03:43 APTT 52.7 Seconds (26.0-36.0) H 02/25/19 04:38 ABG pH 7.30 pH Units (7.32-7.45) L 02/26/19 04:36 ABG pCO2 90 mmHg (35-45) H* 02/27/19 04:47 ABG pO2 83 mmHg (85-104) L 02/27/19 04:47 ABG HCO3 49 mEq/L (21-27) H 02/27/19 04:47 ABG Total CO2 > 50 mEq/L (20-26) H 02/27/19 04:47 ABG O2 Saturation 94 % (95-98) L 02/27/19 04:47 ABG Base Excess 19 mEq/L (-2 to 3) H 02/27/19 04:47 Chloride 94 mEq/L (98-107) L 02/28/19 03:43 Carbon Dioxide > 45 mEq/L (23-29) H* 02/28/19 03:43 BUN 27 mg/dL (6-20) H 02/28/19 03:43 Creatinine 0.64 mg/dL (0.70-1.30) L 02/28/19 03:43 BUN/Creatinine Ratio 42 (6-26) H 02/28/19 03:43 Glucose 130 mg/dL (70-105) H 02/27/19 04:33 POC Glucose 114 mg/dL (70-99) H 02/27/19 20:11 Calculated Osmolality 303 (280-300) H 02/28/19 03:43 Serum Total Protein 6.1 g/dL (6.4-8.9) L 02/26/19 04:49 Albumin 3.2 g/dL (3.5-5.7) L 02/26/19 04:49 - Microbiology Findings Microbiology Findings: Microbiology, Last 48 Hours 02/25/19 07:38 Sputum Culture - Final Sputum - Clinical Findings Intake & Output: Intake & Output 02/27/19 02/27/19 02/28/19 15:59 23:59 07:59 Intake Total 530 / 946 Output Total 1350 / 2600 250 / 2600 650 / 650 Balance -820 / -1654 -250 / -1654 -650 / -650 Weight 188 kg
[2019-02-28] MEDS ORDERED: *HR* Heparin 5,000 UNIT/ML VIAL SQ SCH (07:17)
[2019-02-28] MEDS: *HR* Amiodarone 200 MG TABLET PO SCH (07:55)
[2019-02-28] MEDS: Pantoprazole 40 MG VIAL IVP SCH (07:55)
[2019-02-28] MEDS: Chlorhexidine Rinse 15 ML MOUTHWASH MM SCH ×2 (07:55→20:47)
[2019-02-28] MEDS: Azithromycin 500 MG in 0.9 % Sodium Chloride 250 ML IVPB SCH (07:56)
[2019-02-28] MEDS ORDERED: Furosemide 40 MG/4 ML VIAL IVP SCH ×2 (09:00→10:30)
[2019-02-28] MEDS ORDERED: *HR* Dextrose 50 % in Water (Syg) 50 ML SYRINGE IVP PRN (09:38)
[2019-02-28] MEDS ORDERED: Dextrose Gel 15 GM/37.5 ML TUBE PO PRN ×2 (09:38)
[2019-02-28] MEDS ORDERED: D5% in Water 1,000 ML IVC PRN (09:38)
[2019-02-28] MEDS ORDERED: Naloxone 0.4 MG/ML INJ IVP PRN (09:38)
[2019-02-28] MEDS: *HR* Heparin 5,000 UNIT/ML VIAL SQ SCH ×2 (14:25→21:46)
[2019-02-28] MEDS: predniSONE 20 MG TABLET PO SCH (16:46)
[2019-02-28] MEDS ORDERED: predniSONE 20 MG TABLET PO SCH (17:00)
[2019-02-28] MEDS: Warfarin perPT PO SCH (17:49)
[2019-02-28] MEDS ORDERED: *HR* Warfarin 4 MG TABLET PO ONE (18:00)
[2019-03-01] MEDS: Ipratropium/Albuterol Neb 3 ML IH SCH ×4 (03:44→22:10)
[2019-03-01] MEDS: Insulin LISPRO 300 UNITS/3 ML VIAL SQ SCH ×2 (04:06→09:17)
[2019-03-01 04:08] LABS: Red Cell Distribution Width 14.6 % (11.5-14.5)
[2019-03-01 04:10] LABS: Hematocrit 35.5 % (37.5-50.1); Mean Corpuscular HGB Conc 28.2 g/dL (31.6-35.5); Mean Corpuscular Hemoglobin 25.1 pg (28.0-33.3); Mean Corpuscular Volume 89.2 fL (83.0-100.0); Mean Platelet Volume 9.5 fL (9.4-12.4); Platelet Count 224 K/mcL (140-400); Red Blood Count 3.98 M/mcL (4.19-5.50); White Blood Count 9.4 K/mcL (4.3-11.1)
[2019-03-01 04:13] LABS: INR 2.7; Prothrombin Time 30.9 Seconds (9.4-12.1)
[2019-03-01 04:15] LABS: BUN/Creatinine Ratio 57 (6-26); Blood Urea Nitrogen 32 mg/dL (6-20); Calcium 8.8 mg/dL (8.6-10.3); Carbon Dioxide 45 mEq/L (23-29); Chloride 95 mEq/L (98-107); Glucose 100 mg/dL (70-105); Osmolality,Calculated 303 (280-300); Potassium 3.7 mEq/L (3.5-5.1); Sodium 143 mEq/L (136-145); eGFR For African Americans > 60 (> 60); eGFR For Non-African Americans > 60 (> 60)
[2019-03-01] MEDS: *HR* Heparin 5,000 UNIT/ML VIAL SQ SCH (05:32)
--- NOTE | 2019-03-01 08:46 | Internal Med Progress Note ---
<Jasen Reyes S - Last Filed: 03/01/19 13:57> Hospitalist Progress Note - Encounter Date of Encounter: 03/01/19 Time of Encounter: 08:46 - Subjective Interval History: 58-year-old male with past medical history significant for CHF, COPD, obesity hypoventilation syndrome, BiPAP dependence at home, and chronic noncompliance with treatment presented with shortness of breath, productive cough and chest tightness after not using his home BiPAP for approximately 2 weeks. He was found to have acute hypercapnic respiratory failure, that was not responding well to BiPAP, and was intubated and admitted to the ICU. He was extubated successfully on 02/27, and remains on BiPAP at present. He is being downgraded to the stepdown unit and hospitalist team is assuming management of his care at this time. He is very BiPAP dependent, desaturating to 80% SPO2 after approximately 2 minutes off BiPAP to take his home medications and perform some oral hygiene. He is being treated with azithromycin for presumed pneumonia, he is on oral prednisone and Lasix for COPD exacerbation concomitant with CHF. Of note, he has past medical history significant for paroxysmal A. fib and is on warfarin with an INR today of 2.7. He is awake and pleasant on exam, exam is significant for morbid obesity and decreased air entry into the right lung with expiratory wheezes. Bucio catheter is in place draining yellow urine, Patient's history of noncompliance with home BiPAP therapy, and chronic BiPAP dependence make him a candidate for consideration of elective tracheostomy, however patient refuses to entertain any conversation on the subject. - Exam Vitals: Temp Pulse Resp BP Pulse Ox 99.1 F 72 10 143/85 95 03/01/19 08:13 03/01/19 08:00 03/01/19 08:00 03/01/19 08:00 03/01/19 08:00 Exam: Gen: Awake and alert, no acute distress, obese, well kempt, pleasant, bipap mask in place Head: Normocephalic, atraumatic Eyes: EOMI, no scleral icterus ENT: Exam limited by bipap mask. Mucous membranes appear dry. CV: S1-S2 present, regular at a rate of approximately 100, no murmurs rubs or gallops noted Pulm: decreased air entry R side with expiratory coarse wheezes on that side, not tachypneic, no respiratory distress, no increased work of breathing. Bipap set to IPAP of 16 with EPAP of 8 at FiO2 of 50% Abd: Soft, nontender to palpation, morbidly obese, EXT: Grossly intact motor strength in all 4 extremities, Skin: Warm, dry, no pallor noted Neuro: Cranial nerves II-XII grossly intact, no focal nurologic deficits Psych: normal mood and affect, Answers questions with intact judgement, appropriate insight, and linear thought - Assessment and Plan (1) Acute respiratory failure with hypercapnia Current Visit: Yes Status: Acute Assessment and Plan: s/p intubation and mechanical ventilation, extubated 02/27 on bipap at IPAP 16 and EPAP 8 @ 50% FiO2 Repeat ABG to assess change in last 48 hrs off vent continue bipap pulmonary toilet continue nebulizer treatments and steroids per pulm recommendations (2) Obesity hypoventilation syndrome Current Visit: Yes Status: Chronic Assessment and Plan: Patient has significant history of non-compliance with home BiPap treatment repeat admissions due to this per discussion with nursing staff, patient has been aversive to discussing options for definitive management, namely tracheostomy. will continue to attempt to identify and address patient's concerns regarding th is procedure. patient may be candidate for paliative care consult due to severe recurrent respiratory problems secondary to noncompliance, and unwillingness to discuss definitive management (3) COPD (chronic obstructive pulmonary disease) Current Visit: Yes Status: Chronic Assessment and Plan: Maintain BiPAP Repeat chest x-ray this afternoon Repeat ABG this afternoon In discussion with the resident on the pulmonary service, we may consider beginning a taper of his oral steroids Continue nebulization treatments as ordered (4) Pneumonia Current Visit: No Status: Suspected Assessment and Plan: CXR on 02/27 showed bilateral lower lobe opacities, may represent atalectasis vs pneumonia coontinue treatment with Azithromycin for suspected pna repeat CXR today (5) GAVIN (obstructive sleep apnea) Current Visit: Yes Status: Chronic Assessment and Plan: Patient on BiPAP (6) Heart failure with preserved ejection fraction Current Visit: No Status: Chronic Assessment and Plan: Continue home cardioactive medications, including amiodarone and carvedilol (7) Diabetes Current Visit: Yes Status: Chronic Assessment and Plan: Every 4 glucose checks with corrective insulin protocol ordered DVT Prophylaxis: Patient is on warfarin therapeutic INR - Summary of Assessment and Plan Summary of Assessment and Plan: Downgraded to stepdown Pulmonary toilet Wean from by mouth steroids and BiPAP in close consultation with pulmonary Continue to investigate the possibility of elective tracheostomy - Time Spent with Patient Total time spent is greater than 50% in coordination of care (as documented) at patient's floor/unit and/or counseling patient: - Is Patient Candidate for Palliative Care Consider palliative consult if one or more criteria present:: Multiple recent admissions; same symptoms/problem and no prior consult, Seriously ill patient; no advanced directives or plan of care in place, Patient/family/provider uncertain about prognosis/goals of care (Severe chronic noncompliance with home BiPAP, however patient refuses to consider or even discuss tracheostomy) Internal Medicine: Result - Labs CBC & Chem 7: 03/01/19 03:40 03/01/19 03:40 Labs: Short CBC 03/01/19 Range/Units 03:40 WBC 9.4 (4.3-11.1) K/mcL Hgb 10.0 L (12.9-16.9) g/dL Hct 35.5 L (37.5-50.1) % Plt Count 224 (140-400) K/mcL BMP 03/01/19 03:40 Sodium 143 Potassium 3.7 Chloride 95 L Carbon Dioxide 45 H* BUN 32 H Creatinine 0.56 L Glucose 100 Calcium 8.8 - ABG Interpretation ABG results: ABG ABG pH 7.35 pH Units (7.32-7.45) 02/27/19 04:47 ABG pCO2 90 mmHg (35-45) H* 02/27/19 04:47 ABG pO2 83 mmHg (85-104) L 02/27/19 04:47 ABG O2 Saturation 94 % (95-98) L 02/27/19 04:47 PT/INR, D-dimer PT 30.9 Seconds (9.4-12.1) H 03/01/19 03:40 Consult Discharge Plan - Plan Referrals: Jay Cool MD [Non-Partnered Physician] - 03/11/19 11:15 am Jas Frey MD [Partnered Physician] - 03/14/19 1:30 pm <Jarek Bennett - Last Filed: 03/01/19 18:23> Hospitalist Progress Note - Encounter Date of Encounter: 03/01/19 - Exam Vitals: Temp Pulse Resp BP Pulse Ox 99.5 F 61 12 150/69 94 03/01/19 12:00 03/01/19 16:00 03/01/19 16:00 03/01/19 16:00 03/01/19 16:00 - Time Spent with Patient Total time spent is greater than 50% in coordination of care (as documented) at patient's floor/unit and/or counseling patient: Internal Medicine: Result - Labs CBC & Chem 7: 03/01/19 03:40 03/01/19 03:40 Labs: Short CBC 03/01/19 Range/Units 03:40 WBC 9.4 (4.3-11.1) K/mcL Hgb 10.0 L (12.9-16.9) g/dL Hct 35.5 L (37.5-50.1) % Plt Count 224 (140-400) K/mcL BMP 03/01/19 03:40 Sodium 143 Potassium 3.7 Chloride 95 L Carbon Dioxide 45 H* BUN 32 H Creatinine 0.56 L Glucose 100 Calcium 8.8 - ABG Interpretation ABG results: ABG ABG pH 7.40 pH Units (7.32-7.45) 03/01/19 15:24 ABG pCO2 82 mmHg (35-45) H* 03/01/19 15:24 ABG pO2 87 mmHg (85-104) 03/01/19 15:24 ABG O2 Saturation 96 % (95-98) 03/01/19 15:24 PT/INR, D-dimer PT 30.9 Seconds (9.4-12.1) H 03/01/19 03:40 - Attending Attestation I examined this patient and my medical decision-making was reviewed with the Resident Physician on 03/01/19. I agree with the documented findings, disposition and treatment plan as described except to the extent set forth below. Mr Rubalcava is currently admitted for acute on chronic resp failure. He remains moderate to high risk due to potential for worsening clinical status. Mr Rubalcava is on bipap and resting. No fever or chills. Cannot remove it without desaturation. Exam: Alert. comfortable on bipap. NC. Mucus membranes dry. EOMI. Heart reg and distant. Lungs diminished. Abd soft. No rash Plan: Continue resp management. 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
[2019-03-01] MEDS ORDERED: Azithromycin 500 MG in 0.9 % Sodium Chloride 250 ML IVPB SCH (09:00)
[2019-03-01] MEDS: predniSONE 20 MG TABLET PO SCH ×2 (09:17→18:19)
[2019-03-01] MEDS: Chlorhexidine Rinse 15 ML MOUTHWASH MM SCH ×2 (09:18→21:04)
[2019-03-01] MEDS: Furosemide 40 MG/4 ML VIAL IVP SCH ×2 (09:18→18:19)
[2019-03-01] MEDS: *HR* Amiodarone 200 MG TABLET PO SCH (09:18)
[2019-03-01] MEDS: Pantoprazole 40 MG VIAL IVP SCH (09:19)
--- NOTE | 2019-03-01 11:30 | Pulmonology Progress Note ---
<TkJas W - Last Filed: 03/01/19 12:05> Date of Encounter: 03/01/19 Objective PUL Vital signs: Last Vital Signs Temp 99.5 F 03/01/19 12:00 Pulse 81 03/01/19 10:00 Resp 14 03/01/19 10:00 BP 152/90 03/01/19 10:00 Pulse Ox 94 03/01/19 10:00 Results - Laboratory Findings CBC and BMP: 03/01/19 03:40 03/01/19 03:40 ABG ABG pH 7.35 pH Units (7.32-7.45) 02/27/19 04:47 ABG pCO2 90 mmHg (35-45) H* 02/27/19 04:47 ABG pO2 83 mmHg (85-104) L 02/27/19 04:47 ABG O2 Saturation 94 % (95-98) L 02/27/19 04:47 PT/INR, D-dimer PT 30.9 Seconds (9.4-12.1) H 03/01/19 03:40 Abnormal lab findings: Abnormal lab results RBC 3.98 M/mcL (4.19-5.50) L 03/01/19 03:40 Hgb 10.0 g/dL (12.9-16.9) L 03/01/19 03:40 Hct 35.5 % (37.5-50.1) L 03/01/19 03:40 MCH 25.1 pg (28.0-33.3) L 03/01/19 03:40 MCHC 28.2 g/dL (31.6-35.5) L 03/01/19 03:40 RDW 14.6 % (11.5-14.5) H 03/01/19 03:40 MPV 9.1 fL (9.4-12.4) L 02/28/19 03:43 Hypochromasia Present (Not Present) A 02/26/19 04:49 Anisocytosis 1+ (Not Present) A 02/25/19 06:06 Stomatocytes 2+ (Not Present) A 02/26/19 04:49 PT 30.9 Seconds (9.4-12.1) H 03/01/19 03:40 APTT 52.7 Seconds (26.0-36.0) H 02/25/19 04:38 ABG pH 7.30 pH Units (7.32-7.45) L 02/26/19 04:36 ABG pCO2 90 mmHg (35-45) H* 02/27/19 04:47 ABG pO2 83 mmHg (85-104) L 02/27/19 04:47 ABG HCO3 49 mEq/L (21-27) H 02/27/19 04:47 ABG Total CO2 > 50 mEq/L (20-26) H 02/27/19 04:47 ABG O2 Saturation 94 % (95-98) L 02/27/19 04:47 ABG Base Excess 19 mEq/L (-2 to 3) H 02/27/19 04:47 Chloride 95 mEq/L (98-107) L 03/01/19 03:40 Carbon Dioxide 45 mEq/L (23-29) H* 03/01/19 03:40 BUN 32 mg/dL (6-20) H 03/01/19 03:40 Creatinine 0.56 mg/dL (0.70-1.30) L 03/01/19 03:40 BUN/Creatinine Ratio 57 (6-26) H 03/01/19 03:40 Glucose 130 mg/dL (70-105) H 02/27/19 04:33 POC Glucose 120 mg/dL (70-99) H 02/28/19 23:26 Calculated Osmolality 303 (280-300) H 03/01/19 03:40 Serum Total Protein 6.1 g/dL (6.4-8.9) L 02/26/19 04:49 Albumin 3.2 g/dL (3.5-5.7) L 02/26/19 04:49 - Clinical Findings Intake & Output: Intake & Output 02/28/19 03/01/19 03/01/19 23:59 07:59 15:59 Output Total 175 / 3175 425 / 1675 1250 / 1675 Balance -175 / -3175 -425 / -1675 -1250 / -1675 Weight 182.9 kg Consult Discharge Plan - Plan Referrals: Jay Cool MD [Non-Partnered Physician] - 03/11/19 11:15 am Jas Frey MD [Partnered Physician] - 03/14/19 1:30 pm - Attending Attestation I examined this patient and my medical decision-making was reviewed with the Resident Physician. I agree with the documented findings, disposition and treatment plan as described except to the extent set forth below. We independently had [id number] contact with the patient Patient seen and examined at bedside Labs, radiology, chart personally reviewed. Impression/Recs: Jesus continues to make progress but remains on noninvasive ventilation for most of the day difficult to wean because of hypoxia we will advance his diuretic regimen to treat for heart failure. He is awaiting a bed for the stepdown unit which is appropriate <Chucho Ramires - Last Filed: 03/01/19 15:45> Date of Encounter: 03/01/19 Time of Encounter: 11:00 Assessment and Plan (1) Acute on chronic respiratory failure with hypoxia and hypercapnia Current Visit: No Status: Acute -Known history of chronic hypoxic and hypercapnic respitory failure -Multiple hospitalizations for acute exacerbations requiring intubation in the past -Presented to [facility] with worsening SOB over several days -Was placed on BiPap with no improvement, subsequently intubated -Etiology multifactorial; 2/2 severe COPD, PNA, CHF and obesity hypoventilation with poor respiratory reserve -Patient has significant history of noncompliance with Bipap/O2 at home -Extubated 02/27/19, continues to remain BiPap dependant at this time Plan: -Continue BiPap and with occasional breaks and attempt to wean patient as tolerable, unn65-62 hrs/day for now -NPO while on BiPap except for meds due to aspiration risk -Continue Prednisone 40 PO BID -Continue Duonebs Q6hrs -Continue Azithromycin, Vac/Zosyn DC'd yesterday (2) COPD exacerbation Current Visit: Yes Status: Acute Patient requires 6L O2 at home chronically Non-Compliant on BiPap at night Presented with Acute respiratory failure with hypoxia/hypercapnia COPD exacerbation likely contributing Plan: -Continue Azithromycin -Continue Duonebs q6hrs -Continue Prednisone 40 PO BID (3) Pneumonia Current Visit: Yes Status: Acute Patient did present with recent increase in sputum production Was recently diagnosed with PNA 12/15 resulting in acute respiratory failure requiring intubation, sputum culture at that time showed Staph Aureus CXR post intubation showed Left Perihilar Consolidation and diffuse Right sided pulmonary infiltrate Sputum culture this hopsitalization shows no pathogens, normal salvatore only Strep Pneumo and Legionella urinary antigens negative Blood cultures show NGTD Procalcitonin negative No SIRS criteria Plan - Stop Vanc/Zosyn - Continue Azithromycin - Trend CBC, CMPs Qualifiers: Qualified Code(s): J18.9 - Pneumonia, unspecified organism (4) CHF (congestive heart failure) Current Visit: Yes Status: Chronic Patient does have a history of CHF with multiple exacerbations Takes Lasix 40 PO BID at home Mildly fluid overloaded on exam today BUN/Cr continues to rise but kidney function stable CXR shows evidence of exacerbation: -Cardiomegaly, bilateral effusions with Pulmonary Edema Plan: -Continue IV Diuresis -Lasix increased to 40 BID IV today -Monitor UOP and trend creatinine Qualifiers: Qualified Code(s): I50.9 - Heart failure, unspecified (5) Obesity hypoventilation syndrome Current Visit: Yes Status: Chronic Likely contributing to poor respiratory reserve and chronic hypercapnic respiratory failure Patient has refused to have tracheostomy placed Subjective Principal diagnosis: hypoxia, hypercapnea Interval history: Patient seen and examined today at bedside in the ICU. Patient was extubated 02/27/19 and has remained on BiPap since. Has been difficulty to wean off BiPap yesterday and again today. SpO2 drops into the 70-80's when mask off for even a short period of time to take meds. Patient is tolerating BiPap well overnight. No acute events noted by nursing overnight. Patient denies complaints. Currently A&Ox3, follows commands. Will continue to attempt to wean off biPap and increase diuresis for heart failure. Objective PUL Vital signs: Last Vital Signs Temp 99.1 F 03/01/19 08:13 Pulse 81 03/01/19 10:00 Resp 14 03/01/19 10:00 BP 152/90 03/01/19 10:00 Pulse Ox 94 03/01/19 10:00 Gen: NAD. On BiPap. Vitals noted and stable. HEENT: mucous membranes moist, Anicteric sclera Neck: trachea midline CV: Regular rate, regular rythym, no murmurs Resp: clear to auscultation, no wheezes, course breath sounds noted Abd: soft, no organomegaly, no distension, bowel sounds present Ext: no cyanosis, clubbing, +1 peripheral edema Results - Laboratory Findings CBC and BMP: 03/01/19 03:40 08/30/19 03:40 ABG ABG pH 7.35 pH Units (7.32-7.45) 02/27/19 04:47 ABG pCO2 90 mmHg (35-45) H* 02/27/19 04:47 ABG pO2 83 mmHg (85-104) L 02/27/19 04:47 ABG O2 Saturation 94 % (95-98) L 02/27/19 04:47 PT/INR, D-dimer PT 30.9 Seconds (9.4-12.1) H 03/01/19 03:40 Abnormal lab findings: Abnormal lab results RBC 3.98 M/mcL (4.19-5.50) L 03/01/19 03:40 Hgb 10.0 g/dL (12.9-16.9) L 03/01/19 03:40 Hct 35.5 % (37.5-50.1) L 03/01/19 03:40 MCH 25.1 pg (28.0-33.3) L 03/01/19 03:40 MCHC 28.2 g/dL (31.6-35.5) L 03/01/19 03:40 RDW 14.6 % (11.5-14.5) H 03/01/19 03:40 MPV 9.1 fL (9.4-12.4) L 02/28/19 03:43 Hypochromasia Present (Not Present) A 02/26/19 04:49 Anisocytosis 1+ (Not Present) A 02/25/19 06:06 Stomatocytes 2+ (Not Present) A 02/26/19 04:49 PT 30.9 Seconds (9.4-12.1) H 03/01/19 03:40 APTT 52.7 Seconds (26.0-36.0) H 02/25/19 04:38 ABG pH 7.30 pH Units (7.32-7.45) L 02/26/19 04:36 ABG pCO2 90 mmHg (35-45) H* 02/27/19 04:47 ABG pO2 83 mmHg (85-104) L 02/27/19 04:47 ABG HCO3 49 mEq/L (21-27) H 02/27/19 04:47 ABG Total CO2 > 50 mEq/L (20-26) H 02/27/19 04:47 ABG O2 Saturation 94 % (95-98) L 02/27/19 04:47 ABG Base Excess 19 mEq/L (-2 to 3) H 02/27/19 04:47 Chloride 95 mEq/L (98-107) L 03/01/19 03:40 Carbon Dioxide 45 mEq/L (23-29) H* 03/01/19 03:40 BUN 32 mg/dL (6-20) H 03/01/19 03:40 Creatinine 0.56 mg/dL (0.70-1.30) L 03/01/19 03:40 BUN/Creatinine Ratio 57 (6-26) H 03/01/19 03:40 Glucose 130 mg/dL (70-105) H 02/27/19 04:33 POC Glucose 120 mg/dL (70-99) H 02/28/19 23:26 Calculated Osmolality 303 (280-300) H 03/01/19 03:40 Serum Total Protein 6.1 g/dL (6.4-8.9) L 02/26/19 04:49 Albumin 3.2 g/dL (3.5-5.7) L 02/26/19 04:49 - Clinical Findings Intake & Output: Intake & Output 02/28/19 03/01/19 03/01/19 23:59 07:59 15:59 Output Total 175 / 5 425 / 625 200 / 625 Balance -175 / -3175 -425 / -625 -200 / -625 Weight 182.9 kg
[2019-03-01] MEDS ORDERED: D5% in Water 1,000 ML IVC PRN (14:17)
[2019-03-01 15:30] LABS: ABG Base Excess 22 mEq/L (-2 to 3); ABG HCO3 51 mEq/L (21-27); ABG Oxygen Saturation 96 % (95-98); ABG PCO2 82 mmHg (35-45); ABG PO2 87 mmHg (85-104); ABG TCO2 > 50 mEq/L (20-26); Blood Gas PEEP 6 cm H2O
[2019-03-01] MEDS ORDERED: Insulin LISPRO 300 UNITS/3 ML VIAL SQ SCH (16:00)
[2019-03-01] MEDS: Warfarin perPT PO SCH (18:20)
[2019-03-02] MEDS: Ipratropium/Albuterol Neb 3 ML IH SCH ×4 (03:49→21:07)
[2019-03-02 04:39] LABS: Basophils % 0.1 %; Lymphocytes % 6.5 %; Mean Platelet Volume 9.3 fL (9.4-12.4)
[2019-03-02 04:41] LABS: Hematocrit 36.4 % (37.5-50.1); Hemoglobin 10.3 g/dL (12.9-16.9); Immature Granulocytes % 0.6 % (0-4); Lymphocytes # 0.7 K/mcL (0.6-4.6); Mean Corpuscular HGB Conc 28.3 g/dL (31.6-35.5); Mean Corpuscular Hemoglobin 24.8 pg (28.0-33.3); Mean Corpuscular Volume 87.7 fL (83.0-100.0); Monocytes # 0.7 K/mcL (0.0-1.3); Monocytes % 6.6 %; Platelet Count 211 K/mcL (140-400); Red Blood Count 4.15 M/mcL (4.19-5.50); Red Cell Distribution Width 14.4 % (11.5-14.5); Segmented Neutrophils % 86.2 %; White Blood Count 10.4 K/mcL (4.3-11.1)
[2019-03-02 04:46] LABS: INR 4.3
[2019-03-02 04:48] LABS: Prothrombin Time 49.4 Seconds (9.4-12.1)
[2019-03-02 04:58] LABS: BUN/Creatinine Ratio 63 (6-26); Blood Urea Nitrogen 30 mg/dL (6-20); Calcium 8.7 mg/dL (8.6-10.3); Carbon Dioxide 43 mEq/L (23-29); Chloride 88 mEq/L (98-107); Glucose 109 mg/dL (70-105); Osmolality,Calculated 299 (280-300); Potassium 3.7 mEq/L (3.5-5.1); Sodium 141 mEq/L (136-145); eGFR For African Americans > 60 (> 60); eGFR For Non-African Americans > 60 (> 60)
[2019-03-02 05:11] LABS: Platelet Estimate Normal (Normal); Stomatocytes 1+ (Not Present); Toxic Granulation Present (Not Present)
[2019-03-02] MEDS: predniSONE 20 MG TABLET PO SCH ×2 (08:00→17:08)
[2019-03-02] MEDS: Furosemide 40 MG/4 ML VIAL IVP SCH ×2 (08:00→17:08)
[2019-03-02] MEDS: *HR* Amiodarone 200 MG TABLET PO SCH (08:01)
[2019-03-02] MEDS: Chlorhexidine Rinse 15 ML MOUTHWASH MM SCH ×2 (08:01→20:44)
[2019-03-02] MEDS: Pantoprazole 40 MG VIAL IVP SCH (08:01)
[2019-03-02] MEDS: rOPINIRole 1 MG TABLET PO SCH (12:11)
[2019-03-02] MEDS: Warfarin perPT PO SCH (16:25)
--- NOTE | 2019-03-02 17:13 | Internal Med Progress Note ---
Hospitalist Progress Note - Encounter Date of Encounter: 03/02/19 Time of Encounter: 12:15 - Subjective Interval History: Mr Rubalcava is currently admitted for acute resp failure. He remains moderate to high risk due to potential for worsening respiratory status. Mr Rubalcava is having leg pain and needs his Requip. He was able to be off bipap some today. No fever or chills. No CP. Wants to talk more about a trach. - Exam Vitals: Temp Pulse Resp BP Pulse Ox 99.3 F 73 16 146/94 95 03/02/19 15:48 03/02/19 16:00 03/02/19 16:00 03/02/19 16:00 03/02/19 16:00 Exam: General: Alert and oriented. Comfortable at this time. Remains on bipap. Skin: Normal color, no rash, H: Normocephalic. EENT: EOMI, Mucus membranes moist. Cardiovascular: Normal S1 & S2, Very distant. Not tachycardic Lungs: Decreased breath sounds. No wheeze. Abdomen: Soft, non-tender, Extremities: No deformity, Neurological: Normal cognition and motor skills. Pulses: radial pulses normal +2. Rest of the physical exam is non contributory - Assessment and Plan (1) Acute on chronic respiratory failure with hypercapnia Current Visit: Yes Status: Acute Assessment and Plan: Pt admitted with resp failure requiring intubation related to noncompliance with bipap. Slowly improving - able to take off bipap some. Will talk with surgeon regarding trach. Continue supportive care. (2) COPD (chronic obstructive pulmonary disease) Current Visit: Yes Status: Acute Assessment and Plan: Continue supportive care and weaning bipap as able. (3) HTN (hypertension) Current Visit: Yes Status: Chronic Assessment and Plan: Continue home meds. (4) Diabetes Current Visit: Yes Status: Chronic Assessment and Plan: Controlled at this time. (5) GAVIN (obstructive sleep apnea) Current Visit: Yes Status: Chronic Assessment and Plan: Continue to wean bipap. Agrees to discuss trach at this time. (6) Morbid obesity with BMI of 50.0-59.9, adult Current Visit: No Status: Chronic Assessment and Plan: Chronic issue. (7) Paroxysmal atrial fibrillation Current Visit: Yes Status: Chronic Assessment and Plan: No issues at this time. - Time Spent with Patient Total time spent is greater than 50% in coordination of care (as documented) at patient's floor/unit and/or counseling patient: Internal Medicine: Result - Labs CBC & Chem 7: 03/02/19 04:15 03/02/19 04:15 Labs: Short CBC 03/02/19 Range/Units 04:15 WBC 10.4 (4.3-11.1) K/mcL Hgb 10.3 L (12.9-16.9) g/dL Hct 36.4 L (37.5-50.1) % Plt Count 211 (140-400) K/mcL Neutrophils # 9.0 H (1.6-8.9) K/mcL BMP 03/02/19 04:15 Sodium 141 Potassium 3.7 Chloride 88 L Carbon Dioxide 43 H* BUN 30 H Creatinine 0.48 L Glucose 109 H Calcium 8.7 - ABG Interpretation ABG results: ABG ABG pH 7.40 pH Units (7.32-7.45) 03/01/19 15:24 ABG pCO2 82 mmHg (35-45) H* 03/01/19 15:24 ABG pO2 87 mmHg (85-104) 03/01/19 15:24 ABG O2 Saturation 96 % (95-98) 03/01/19 15:24 PT/INR, D-dimer PT 49.4 Seconds (9.4-12.1) H* D 03/02/19 04:15 - Impressions Impressions Chest X-Ray 03/01/19 11:11 IMPRESSION: Redemonstration of bilateral pleural effusions, greater on the left, with adjacent airspace disease, similar when compared to the previous exam. Pulmonary vascular congestion, also similar, suggesting pulmonary edema. D/ / Frederic Taylor MD / Frederic Taylor MD Interpreting Provider: Frederic Taylor MD Consult Discharge Plan - Plan Referrals: Jay Cool MD [Non-Partnered Physician] - 03/11/19 11:15 am Jas Frey MD [Partnered Physician] - 03/14/19 1:30 pm (2) COPD (chronic obstructive pulmonary disease) Qualifiers: COPD type: COPD with acute exacerbation Qualified Code(s): J44.1 - Chronic obstructive pulmonary disease with (acute) exacerbation (3) HTN (hypertension) Qualifiers: Hypertension type: essential hypertension Qualified Code(s): I10 - Essential (primary) hypertension (4) Diabetes Qualifiers: Diabetes mellitus type: type 2 Diabetes mellitus chcf insulin use: with extermination supervisor use Diabetes mellitus complication status: with hyperglycemia Qualified Code(s): E11.65 - Type 2 diabetes mellitus with hyperglycemia; Z79.4 - terminal gauger supervisor (current) use of insulin
[2019-03-02] MEDS ORDERED: Acetaminophen 325 MG TABLET PO ONE (20:56)
[2019-03-03 03:47] LABS: Red Cell Distribution Width 14.6 % (11.5-14.5)
[2019-03-03 03:48] LABS: Hemoglobin 10.6 g/dL (12.9-16.9); Mean Corpuscular HGB Conc 28.6 g/dL (31.6-35.5); Mean Corpuscular Volume 87.3 fL (83.0-100.0); Mean Platelet Volume 9.6 fL (9.4-12.4); Platelet Count 214 K/mcL (140-400); Red Blood Count 4.24 M/mcL (4.19-5.50); White Blood Count 10.8 K/mcL (4.3-11.1)
[2019-03-03] MEDS: Ipratropium/Albuterol Neb 3 ML IH SCH ×4 (03:49→22:10)
[2019-03-03 03:57] LABS: INR 3.1; Prothrombin Time 35.6 Seconds (9.4-12.1)
[2019-03-03 04:09] LABS: BUN/Creatinine Ratio 52 (6-26); Blood Urea Nitrogen 30 mg/dL (6-20); Calcium 8.9 mg/dL (8.6-10.3); Carbon Dioxide > 45 mEq/L (23-29); Chloride 88 mEq/L (98-107); Glucose 130 mg/dL (70-105); Magnesium 2.1 mg/dL (1.6-2.6); Osmolality,Calculated 300 (280-300); Potassium 3.6 mEq/L (3.5-5.1); Sodium 141 mEq/L (136-145); eGFR For African Americans > 60 (> 60); eGFR For Non-African Americans > 60 (> 60)
[2019-03-03] MEDS: predniSONE 20 MG TABLET PO SCH ×2 (09:27→17:25)
[2019-03-03] MEDS: rOPINIRole 1 MG TABLET PO SCH (09:27)
[2019-03-03] MEDS: *HR* Amiodarone 200 MG TABLET PO SCH (09:27)
[2019-03-03] MEDS: Furosemide 40 MG/4 ML VIAL IVP SCH ×2 (09:28→17:26)
[2019-03-03] MEDS: Pantoprazole 40 MG VIAL IVP SCH (09:28)
[2019-03-03] MEDS: Chlorhexidine Rinse 15 ML MOUTHWASH MM SCH ×2 (09:29→20:53)
--- NOTE | 2019-03-03 10:54 | Internal Med Progress Note ---
Hospitalist Progress Note - Encounter Date of Encounter: 03/03/19 Time of Encounter: 10:40 - Subjective Interval History: Mr Rubalcava is currently admitted for acute on chronic resp failure. He remains moderate to high risk due to potential for worsening clinical and respiratory status. Mr Rubalcava is feeling OK. Breathing is about the same and he continues to desaturate when off bipap. No CP. No fever or chills. No cough. No GI issues. - Exam Vitals: Temp Pulse Resp BP Pulse Ox 98.6 F 73 28 136/90 96 03/03/19 10:27 03/03/19 10:27 03/03/19 10:27 03/03/19 10:27 03/03/19 10:27 Exam: General: Alert and oriented. Remains on bipap. but comfortable. Skin: Normal color, no rash, H: Normocephalic. EENT: EOMI, Mucus membranes dry. Cardiovascular: Normal S1 & S2, Very distant. Appears to be regular. Lungs: Decreased breath sounds. No wheeze, rales or rhonchi. Abdomen: Soft, non-tender, Obese and difficult to feel. Extremities: No deformity, Neurological: Normal cognition and motor skills. Pulses: radial pulses normal +2. Rest of the physical exam is non contributory - Assessment and Plan (1) Acute on chronic respiratory failure with hypercapnia Current Visit: Yes Status: Acute Assessment and Plan: Pt admitted with resp failure requiring intubation related to noncompliance with bipap. Continues to desaturate when off bipap. Will talk with surgeon regarding trach. - will contact on . Continue supportive care. (2) COPD (chronic obstructive pulmonary disease) Current Visit: Yes Status: Acute Assessment and Plan: Continue supportive care and weaning bipap as able. No wheezing noted on exam. (3) HTN (hypertension) Current Visit: Yes Status: Chronic Assessment and Plan: Continue home meds. Controlled. (4) Diabetes Current Visit: Yes Status: Chronic Assessment and Plan: Controlled at this time. (5) GAVIN (obstructive sleep apnea) Current Visit: Yes Status: Chronic Assessment and Plan: Continue to wean bipap. Agrees to discuss trach at this time. Will consult ENT. (6) Morbid obesity with BMI of 50.0-59.9, adult Current Visit: No Status: Chronic Assessment and Plan: Chronic issue. (7) Paroxysmal atrial fibrillation Current Visit: Yes Status: Chronic Assessment and Plan: No issues at this time. - Time Spent with Patient Total time spent is greater than 50% in coordination of care (as documented) at patient's floor/unit and/or counseling patient: Internal Medicine: Result - Labs CBC & Chem 7: 03/03/19 03:20 03/03/19 03:20 Labs: Short CBC 03/03/19 Range/Units 03:20 WBC 10.8 (4.3-11.1) K/mcL Hgb 10.6 L (12.9-16.9) g/dL Hct 37.0 L (37.5-50.1) % Plt Count 214 (140-400) K/mcL BMP 03/03/19 03:20 Sodium 141 Potassium 3.6 Chloride 88 L Carbon Dioxide > 45 H* BUN 30 H Creatinine 0.58 L Glucose 130 H Calcium 8.9 - ABG Interpretation ABG results: ABG ABG pH 7.40 pH Units (7.32-7.45) 03/01/19 15:24 ABG pCO2 82 mmHg (35-45) H* 03/01/19 15:24 ABG pO2 87 mmHg (85-104) 03/01/19 15:24 ABG O2 Saturation 96 % (95-98) 03/01/19 15:24 PT/INR, D-dimer PT 35.6 Seconds (9.4-12.1) H 03/03/19 03:20 Consult Discharge Plan - Plan Referrals: Jay Cool MD [Non-Partnered Physician] - 03/11/19 11:15 am Jas Frey MD [Partnered Physician] - 03/14/19 1:30 pm (2) COPD (chronic obstructive pulmonary disease) Qualifiers: COPD type: COPD with acute exacerbation Qualified Code(s): J44.1 - Chronic obstructive pulmonary disease with (acute) exacerbation (3) HTN (hypertension) Qualifiers: Hypertension type: essential hypertension Qualified Code(s): I10 - Essential (primary) hypertension (4) Diabetes Qualifiers: Diabetes mellitus type: type 2 Diabetes mellitus terrazzo mechanic helper insulin use: with fpc use Diabetes mellitus complication status: with hyperglycemia Qualified Code(s): E11.65 - Type 2 diabetes mellitus with hyperglycemia; Z79.4 - manufacturing applications engineer (current) use of insulin
[2019-03-03] MEDS: Warfarin perPT PO SCH (17:19)
[2019-03-03] MEDS ORDERED: *HR* Warfarin 2 MG TABLET PO ONE (18:00)
[2019-03-04 04:12] LABS: INR 2.1; Prothrombin Time 23.9 Seconds (9.4-12.1)
[2019-03-04] MEDS: Ipratropium/Albuterol Neb 3 ML IH SCH ×4 (04:39→22:04)
[2019-03-04] MEDS: predniSONE 20 MG TABLET PO SCH ×2 (09:03→17:12)
[2019-03-04] MEDS: rOPINIRole 1 MG TABLET PO SCH (09:03)
[2019-03-04] MEDS: Chlorhexidine Rinse 15 ML MOUTHWASH MM SCH ×3 (09:03→20:29)
[2019-03-04] MEDS: Furosemide 40 MG/4 ML VIAL IVP SCH ×2 (09:03→17:12)
[2019-03-04] MEDS: Pantoprazole 40 MG VIAL IVP SCH (09:03)
[2019-03-04] MEDS: *HR* Amiodarone 200 MG TABLET PO SCH (09:03)
--- NOTE | 2019-03-04 09:49 | Internal Med Progress Note ---
<Jasen Reyes S - Last Filed: 03/04/19 15:32> Hospitalist Progress Note - Encounter Date of Encounter: 03/04/19 Time of Encounter: 09:49 - Subjective Interval History: Mr. Rubalcava is here on day 8 of his hospital stay, he was admitted for acute hypercapnic respiratory failure secondary to noncompliance with home BiPAP, COPD and obesity hypoventilation syndrome. She was intubated, stayed in the ICU until he was extubated to BiPAP, and has been BiPAP dependent until today. Today on 7 L nasal cannula his oxygen saturation is stayed between 94 and 96. He states "I am feeling fantastic" he wants to try ambulating today, so that he can get the Bucio catheter removed and use the toilet again. Denies any chest pain, shortness of breath, nausea, vomiting, diarrhea, constipation, lightheadedness, dizziness - Exam Vitals: Temp Pulse Resp BP Pulse Ox 97.6 F 65 22 129/73 98 03/04/19 04:43 03/04/19 04:43 03/04/19 09:24 03/04/19 04:43 03/04/19 09:24 Exam: Gen: Awake and alert, no acute distress, obese, Head: Normocephalic, atraumatic Eyes: EOMI, no scleral icterus ENT: Mucous membranes moist, CV: S1-S2 present, no murmurs rubs or gallops Pulm: CTAB, not tachypneic, no respiratory distress, slightly increased work of breathing Abd: morbidly obese, nondistended, EXT: Grossly intact motor strength in all 4 extremities, no lower extremity edema, lower leg hyperpigmentation present on both legs, consistent with stasis dermatitis Skin: Warm, dry, intacct, no rashes noted Neuro: Cranial nerves II-XII grossly intact, no focal nurologic deficits Psych: normal mood and affect, Answers questions with intact judgement, approp riate insight, and linear thought - Assessment and Plan (1) Acute respiratory failure with hypercapnia Current Visit: Yes Status: Acute Assessment and Plan: Mr. Rubalcava is doing much better today, reports no shortness of breath or chest pain Seated in bed he is at 94-96% O2 saturation on 7 L nasal cannula. This does drop when he is speaking, however never got below 93 He expressed a strong desire to get out of bed, ambulate and use the toilet again In conversation with Dr. Bennett, he was amenable to consult with ENT to discuss possible tracheostomy Continue oxygen at 7 L nasal cannula, BiPAP if needed to maintain O2 saturation above 92 Consult an ENT, they will speak to the patient briefly this afternoon initiate conversation about tracheostomy, likely to establish outpatient follow-up for thorough investigation of options PT OT eval of exercise capacity, (2) Obesity hypoventilation syndrome Current Visit: Yes Status: Chronic Assessment and Plan: As above (3) COPD (chronic obstructive pulmonary disease) Current Visit: Yes Status: Chronic Assessment and Plan: Continue prednisone at 40 mg twice a day Continue duo nebs (4) Pneumonia Current Visit: No Status: Resolved (5) GAVIN (obstructive sleep apnea) Current Visit: Yes Status: Chronic Assessment and Plan: Continue BiPAP at night (6) Heart failure with preserved ejection fraction Current Visit: No Status: Chronic Assessment and Plan: Maintain a low-sodium diet, Monitor I's and O's Continue carvedilol and amiodarone (7) Diabetes Current Visit: Yes Status: Chronic Assessment and Plan: Continue to monitor sugars with a.m. BMPs DVT Prophylaxis: Patient's taking warfarin with therapeutic INR at 2.1 - Summary of Assessment and Plan Summary of Assessment and Plan: PTOT for exercise tolerance evaluation ENT consult for assessment for tracheostomy Continue management of chronic conditions Consider downgraded to GMF tomorrow - Time Spent with Patient Total time spent is greater than 50% in coordination of care (as documented) at patient's floor/unit and/or counseling patient: Internal Medicine: Result - Labs CBC & Chem 7: 03/03/19 03:20 03/03/19 03:20 - ABG Interpretation ABG results: ABG ABG pH 7.40 pH Units (7.32-7.45) 03/01/19 15:24 ABG pCO2 82 mmHg (35-45) H* 03/01/19 15:24 ABG pO2 87 mmHg (85-104) 03/01/19 15:24 ABG O2 Saturation 96 % (95-98) 03/01/19 15:24 PT/INR, D-dimer PT 23.9 Seconds (9.4-12.1) H 03/04/19 03:30 Consult Discharge Plan - Plan Referrals: Jay Cool MD [Non-Partnered Physician] - 03/11/19 11:15 am Jas Frey MD [Partnered Physician] - 03/14/19 1:30 pm <Jarek Bennett - Last Filed: 03/04/19 16:56> Hospitalist Progress Note - Encounter Date of Encounter: 03/04/19 - Exam Vitals: Temp Pulse Resp BP Pulse Ox 97.9 F 66 17 133/75 95 03/04/19 11:50 03/04/19 11:50 03/04/19 15:21 03/04/19 11:50 03/04/19 15:21 - Assessment and Plan (1) Acute on chronic respiratory failure with hypercapnia Current Visit: Yes Status: Acute (2) COPD (chronic obstructive pulmonary disease) Current Visit: Yes Status: Acute (3) HTN (hypertension) Current Visit: Yes Status: Chronic (4) Diabetes Current Visit: Yes Status: Chronic (5) GAVIN (obstructive sleep apnea) Current Visit: Yes Status: Chronic (6) Morbid obesity with BMI of 50.0-59.9, adult Current Visit: No Status: Chronic (7) Paroxysmal atrial fibrillation Current Visit: Yes Status: Chronic - Time Spent with Patient Total time spent is greater than 50% in coordination of care (as documented) at patient's floor/unit and/or counseling patient: Internal Medicine: Result - Labs CBC & Chem 7: 03/03/19 03:20 03/03/19 03:20 - ABG Interpretation ABG results: ABG ABG pH 7.40 pH Units (7.32-7.45) 03/01/19 15:24 ABG pCO2 82 mmHg (35-45) H* 03/01/19 15:24 ABG pO2 87 mmHg (85-104) 03/01/19 15:24 ABG O2 Saturation 96 % (95-98) 03/01/19 15:24 PT/INR, D-dimer PT 23.9 Seconds (9.4-12.1) H 03/04/19 03:30 - Attending Attestation I examined this patient and my medical decision-making was reviewed with the Res ident Physician on 03/04/19. I agree with the documented findings, disposition and treatment plan as described except to the extent set forth below. Mr Rubalcava is currently admitted for resp failure. He remains moderate to high risk due to potential for worsening clinical and respiratory status. Mr Rubalcava is doing better today. No fever or chills. No CP. Breathing better today. Exam: Alert. More comfortable. NC. Mucus membranes dry. Neck supple. Heart distant - not tachy. Decreased breath sounds but better. Less edema. Plan: Continue wean oxygen. ENT eval for elective trach. Increase activity. Wean steroids. <Jasen Reyes - Last Filed: 03/04/19 15:32> (3) COPD (chronic obstructive pulmonary disease) Qualifiers: COPD type: unspecified COPD Qualified Code(s): J44.9 - Chronic obstructive pulmonary disease, unspecified (4) Pneumonia Qualifiers: Pneumonia type: due to unspecified organism Laterality: unspecified laterality Lung location: unspecified part of lung Qualified Code(s): J18.9 - Pneumonia, unspecified organism (7) Diabetes Qualifiers: Diabetes mellitus type: type 2 Diabetes mellitus terminal make up operator insulin use: with mcfp use Diabetes mellitus complication status: with hyperglycemia Qualified Code(s): E11.65 - Type 2 diabetes mellitus with hyperglycemia; Z79.4 - USP (current) use of insulin <Jarek Bennett - Last Filed: 03/04/19 16:56> (2) COPD (chronic obstructive pulmonary disease) Qualifiers: COPD type: COPD with acute exacerbation Qualified Code(s): J44.1 - Chronic obstructive pulmonary disease with (acute) exacerbation (3) HTN (hypertension) Qualifiers: Hypertension type: essential hypertension Qualified Code(s): I10 - Essential (primary) hypertension (4) Diabetes Qualifiers: Diabetes mellitus type: type 2 Diabetes mellitus mcfp insulin use: with terminal make up operator use Diabetes mellitus complication status: with hyperglycemia Qualified Code(s): E11.65 - Type 2 diabetes mellitus with hyperglycemia; Z79.4 - USP (current) use of insulin
[2019-03-04] MEDS: Warfarin perPT PO SCH (17:12)
--- NOTE | 2019-03-04 17:43 | ENT - Consult Note ---
Date of Encounter: 03/04/19 Time of Encounter: 05:30 Assessment and Plan (1) Acute on chronic respiratory failure with hypercapnia Current Visit: Yes Status: Acute White male obese on Coumadin for atrial fib on 4 L of oxygen requesting preoperative evaluation by both pulmonary and cardiology as to perioperative management including management of his Coumadin pulmonary and cardiac status following these consults patient should have a routine follow-up in the ENT office to introduce himself to his physician who will perform a routine tracheostomy in the meantime patient needs to get use to the idea so he is not quite so adamant History of Present Illness Consult date: 03/04/19 Reason for ENT Consult: trach placement History of present illness: 58-year-old white male morbidly obese apparently has been admitted multiple times for intubation underlying problems is probably COPD hypercapnia sleep apnea patient was recently admitted in the unit and intubated for several days is been extubated and doing fairly well this patient has multiple underlying i ssues including atrial fib Coumadin He Is Morbidly Obese He Has Sleep Apnea He Is on 4 L of Oxygen at Home He Has Congestive Heart Failure It Is Reasonable to Consider a Tracheostomy Tube in This Patient Has Been Rather Resistant to This Prior to Doing This She Should Have Cardiac and Pulmonary Consultations with Recommendations on Management of Coumadin Perioperatively He Will Probably Require Admission Perioperatively He May Need an Elongated Tracheostomy Tube patient is in the process of getting used to the idea of having a tracheostomy tube placed will schedule him for follow-up in the office so that they can get to know him a little better and put him on the schedule for tracheostomy tube placement Past Med Surg Social Fam HX - Past Medical History Medical history: atrial fibrillation, cardiomyopathy, CHF, COPD, hyperlipidemia, hypertension, other Additional medical history: deaf right ear Psychiatric history: anxiety, depression - Past Surgical History Surgical History: pacemaker/AICD - Social History Smoking Status: Former smoker Smokeless Tobacco Status: No Alcohol use: none Drug use: none - Family History Mother Family Member Ethnicity: Non- Living Status: Still Living Hx Family Cardiac Disorders: No Hx Family Respiratory Disorders: No Hx Family Cancer: Yes (uterine) Hx Family GI Disorders: No Hx Family Endocrine Disorder: No Father Adopted: No Family Member Ethnicity: Non- Living Status: Hx Family Cancer: Yes (lung/ kidney) Hx Family GI Disorders: No Medications and Allergies Atorvastatin Calcium [Lipitor] 80 mg PO DAILY 05/04/15 [History] Multivitamin/Ferrous Sulfate [One-Daily Kqczf-Prp-Wsay Tab] 1 tab PO DAILY 05/04/15 [History] Amiodarone [Cordarone] 200 mg PO DAILY 11/23/17 [History] Fluticasone/Salmeterol [Advair Hfa 45-21 Mcg Inhaler] 2 puff IH BID 01/04/18 [History] Warfarin [Coumadin] 8 mg PO 1800 01/04/18 [History] Citalopram Hydrobromide [Citalopram HBr] 60 mg PO DAILY 07/09/18 [History] Ipratropium/Albuterol Sulfate [Iprat-Albut 0.5-3(2.5) mg/3 ml] 3 ml IH Q6H 10/08/18 [History] Furosemide [Lasix] 40 mg PO BID 11/05/18 [History] Ropinirole HCl [Requip] 0.5 mg PO DAILY 12/16/18 [History] Carvedilol [Coreg] 3.125 mg PO BIDWM tablet 12/22/18 [Rx] Potassium Chloride [K-Tab ER] 10 meq PO BID 02/25/19 [History] Allergy/AdvReac Type Severity Reaction Status Date / Time OLIVER Inhibitors AdvReac Cough Verified 02/25/19 11:00 ENT Exam Initial Vital Signs Temp Pulse Resp BP Pulse Ox 98.3 F 65 12 132/72 100 02/24/19 19:00 02/24/19 19:00 02/24/19 19:00 02/24/19 19:00 02/24/19 19:00 - General physical appearance well developed, well nourished, no distress, no pain, obese, other (Tracheostomy appears to be midline the neck is short he may require a elongated tube). negative: moderate distress, severe distress, moderate pain, severe pain, cac hectic - Eyes PERRL, normal ocular movement, icteric - ENT normal pinna, normal nares, normal mucosa, no hearing loss, no congestion. negative: decreased hearing, deviated nasal septum, nasal discharge, poor group home, dentures, mucosal exudate, dry mucosa - Neck no masses, trachea midline, no lymphadectomy. negative: deviated trachea, diffuse goiter, limited ROM - Respiratory normal expansion, normal respiratory effort, clear to percussion, clear to auscultation - Abdomen Abdomen: soft, non tender, bowel sounds, no tender, no surgical scars Exam Initial Vital Signs Temp Pulse Resp BP Pulse Ox 98.3 F 65 12 132/72 100 02/24/19 19:00 02/24/19 19:00 02/24/19 19:00 02/24/19 19:00 02/24/19 19:00 Results - Labs 03/03/19 03:20 03/03/19 03:20 Abnormal lab results RBC 4.15 M/mcL (4.19-5.50) L 03/02/19 04:15 Hgb 10.6 g/dL (12.9-16.9) L 03/03/19 03:20 Hct 37.0 % (37.5-50.1) L 03/03/19 03:20 MCH 25.0 pg (28.0-33.3) L 03/03/19 03:20 MCHC 28.6 g/dL (31.6-35.5) L 03/03/19 03:20 RDW 14.6 % (11.5-14.5) H 03/03/19 03:20 MPV 9.3 fL (9.4-12.4) L 03/02/19 04:15 Neutrophils # 9.0 K/mcL (1.6-8.9) H 03/02/19 04:15 Toxic Granulation Present (Not Present) A 03/02/19 04:15 Hypochromasia Present (Not Present) A 02/26/19 04:49 Anisocytosis 1+ (Not Present) A 02/25/19 06:06 Stomatocytes 1+ (Not Present) A 03/02/19 04:15 PT 23.9 Seconds (9.4-12.1) H 03/04/19 03:30 APTT 52.7 Seconds (26.0-36.0) H 02/25/19 04:38 ABG pH 7.30 pH Units (7.32-7.45) L 02/26/19 04:36 ABG pCO2 82 mmHg (35-45) H* 03/01/19 15:24 ABG pO2 83 mmHg (85-104) L 02/27/19 04:47 ABG HCO3 51 mEq/L (21-27) H 03/01/19 15:24 ABG Total CO2 > 50 mEq/L (20-26) H 03/01/19 15:24 ABG O2 Saturation 94 % (95-98) L 02/27/19 04:47 ABG Base Excess 22 mEq/L (-2 to 3) H 03/01/19 15:24 Chloride 88 mEq/L (98-107) L 03/03/19 03:20 Carbon Dioxide > 45 mEq/L (23-29) H* 03/03/19 03:20 BUN 30 mg/dL (6-20) H 03/03/19 03:20 Creatinine 0.58 mg/dL (0.70-1.30) L 03/03/19 03:20 BUN/Creatinine Ratio 52 (6-26) H 03/03/19 03:20 Glucose 130 mg/dL (70-105) H 03/03/19 03:20 POC Glucose 140 mg/dL (70-99) H 03/03/19 16:07 Calculated Osmolality 303 (280-300) H 03/01/19 03:40 Serum Total Protein 6.1 g/dL (6.4-8.9) L 02/26/19 04:49 Albumin 3.2 g/dL (3.5-5.7) L 02/26/19 04:49 All other labs normal. Consult Discharge Plan - Plan Referrals: Jay Cool MD [Non-Partnered Physician] - 03/11/19 11:15 am Jas Frey MD [Partnered Physician] - 03/14/19 1:30 pm
[2019-03-04] MEDS ORDERED: *HR* Warfarin 2 MG TABLET PO ONE (18:00)
[2019-03-04] MEDS ORDERED: Furosemide 40 MG TABLET PO SCH (21:00)
[2019-03-04] MEDS: Budesonide/Formoterol 80/4.5 1 PUFF INH IH SCH (22:04)
[2019-03-04 23:57] LABS: ABG Base Excess 21 mEq/L (-2 to 3); ABG HCO3 50 mEq/L (21-27); ABG Oxygen Saturation 97 % (95-98); ABG PCO2 77 mmHg (35-45); ABG PH 7.43 pH Units (7.32-7.45); ABG PO2 99 mmHg (85-104); ABG TCO2 > 50 mEq/L (20-26); Blood Gas Modality NIV; Blood Gas PEEP 6 cm H2O
[2019-03-05] MEDS ORDERED: Haloperidol Lactate 5 MG/ML VIAL IVP ONE (02:23)
[2019-03-05 03:27] LABS: Red Cell Distribution Width 14.6 % (11.5-14.5)
[2019-03-05 03:29] LABS: Basophils % 0.1 %; Hematocrit 40.4 % (37.5-50.1); Hemoglobin 11.6 g/dL (12.9-16.9); Immature Granulocytes % 0.5 % (0-4); Lymphocytes # 0.6 K/mcL (0.6-4.6); Lymphocytes % 5.2 %; Mean Corpuscular HGB Conc 28.7 g/dL (31.6-35.5); Mean Corpuscular Hemoglobin 24.7 pg (28.0-33.3); Mean Corpuscular Volume 86.1 fL (83.0-100.0); Mean Platelet Volume 9.4 fL (9.4-12.4); Monocytes # 0.8 K/mcL (0.0-1.3); Monocytes % 7.9 %; Platelet Count 232 K/mcL (140-400); Red Blood Count 4.69 M/mcL (4.19-5.50); Segmented Neutrophils % 86.3 %; White Blood Count 10.6 K/mcL (4.3-11.1)
[2019-03-05 03:38] LABS: INR 1.9; Prothrombin Time 21.1 Seconds (9.4-12.1)
[2019-03-05 03:44] LABS: Neutrophils # 9.2 K/mcL (1.6-8.9)
[2019-03-05] MEDS: Ipratropium/Albuterol Neb 3 ML IH SCH ×4 (03:51→21:42)
[2019-03-05 03:57] LABS: BUN/Creatinine Ratio 39 (6-26); Blood Urea Nitrogen 29 mg/dL (6-20); Chloride 89 mEq/L (98-107); Glucose 130 mg/dL (70-105); Osmolality,Calculated 308 (280-300); Sodium 145 mEq/L (136-145); eGFR For African Americans > 60 (> 60); eGFR For Non-African Americans > 60 (> 60)
[2019-03-05 04:01] LABS: Carbon Dioxide > 45 mEq/L (23-29)
[2019-03-05 04:18] LABS: Hypochromasia Present (Not Present); Platelet Estimate Normal (Normal)
[2019-03-05 04:19] LABS: Anisocytosis 1+ (Not Present)
[2019-03-05 06:11] LABS: ABG Base Excess 23 mEq/L (-2 to 3); ABG HCO3 52 mEq/L (21-27); ABG Oxygen Saturation 97 % (95-98); ABG PCO2 77 mmHg (35-45); ABG PH 7.44 pH Units (7.32-7.45); ABG PO2 96 mmHg (85-104); ABG TCO2 > 50 mEq/L (20-26); Blood Gas Modality NIV; Blood Gas PEEP 6 cm H2O
--- NOTE | 2019-03-05 08:00 | Internal Med Progress Note ---
<Jarek Bennett - Last Filed: 03/05/19 13:16> Hospitalist Progress Note - Encounter Date of Encounter: 03/05/19 - Exam Vitals: Temp Pulse Resp BP Pulse Ox 99.1 F 62 15 139/98 96 03/05/19 11:48 03/05/19 11:48 03/05/19 11:58 03/05/19 11:48 03/05/19 11:58 - Assessment and Plan (1) Acute on chronic respiratory failure with hypercapnia Current Visit: Yes Status: Acute (2) COPD (chronic obstructive pulmonary disease) Current Visit: Yes Status: Acute (3) HTN (hypertension) Current Visit: Yes Status: Chronic (4) Diabetes Current Visit: Yes Status: Chronic (5) GAVIN (obstructive sleep apnea) Current Visit: Yes Status: Chronic (6) Morbid obesity with BMI of 50.0-59.9, adult Current Visit: No Status: Chronic (7) Paroxysmal atrial fibrillation Current Visit: Yes Status: Chronic - Time Spent with Patient Total time spent is greater than 50% in coordination of care (as documented) at patient's floor/unit and/or counseling patient: Internal Medicine: Result - Labs CBC & Chem 7: 03/05/19 03:00 03/05/19 03:00 Labs: Short CBC 03/05/19 Range/Units 03:00 WBC 10.6 (4.3-11.1) K/mcL Hgb 11.6 L (12.9-16.9) g/dL Hct 40.4 (37.5-50.1) % Plt Count 232 (140-400) K/mcL Neutrophils # 9.2 H (1.6-8.9) K/mcL BMP 03/05/19 03:00 Sodium 145 Potassium 3.0 L Chloride 89 L Carbon Dioxide > 45 H* BUN 29 H Creatinine 0.74 Glucose 130 H Calcium 9.0 - ABG Interpretation ABG results: ABG ABG pH 7.44 pH Units (7.32-7.45) 03/05/19 06:07 ABG pCO2 77 mmHg (35-45) H* 03/05/19 06:07 ABG pO2 96 mmHg (85-104) 03/05/19 06:07 ABG O2 Saturation 97 % (95-98) 03/05/19 06:07 PT/INR, D-dimer PT 21.1 Seconds (9.4-12.1) H 03/05/19 03:00 Consult Discharge Plan - Plan Referrals: Jay Cool MD [Non-Partnered Physician] - 03/11/19 11:15 am Jas Frey MD [Partnered Physician] - 03/14/19 1:30 pm - Attending Attestation The history, physical exam, and medical decision making was performed by the medical student either while I was physically present and actively involved or I personally re-performed the exam and medical decision making. I have verified the accuracy of the medical student's documentation with regards to the history, physical exam findings, and medical decision making on 03/05/19. Mr Rubalcava is currently admitted for acute resp failure and GAVIN He remains moderate to high risk due to potential for worsening clinical status. Mr Rubalcava has had intermittent confusion. No CP. Breathing about the same. Remains on 7liters oxygen. No fever or chills. No cough at this time. No GI issues. Exam: Alert. Comfortable at rest. NC. EOMI. Mucus membranes dry. Neck supple. Heart distant - not tachy. Lungs diminished with no wheeze. Abd soft and nontender. Edema about the same. Moves all extremities. No rash. I/P 1. Resp failure - very slow improvement. 2. Morbid obesity 3. COPD FUrther diagnoses and plan as above. <Jose Mullen R - Last Filed: 03/05/19 17:16> Hospitalist Progress Note - Encounter Date of Encounter: 03/05/19 Time of Encounter: 08:00 - Subjective Interval History: PT lying in bed upon my arrival, asked to have BiPap removed and placed on nasal cannula. Expressed some confusion, not knowing where he was stating that the past few days have been a "blur" for him. Denies any chest pains, abdominal pains, cough, fever. - Exam Vitals: Temp Pulse Resp BP Pulse Ox 98.5 F 72 23 144/65 95 03/05/19 07:40 03/05/19 07:40 03/05/19 07:40 03/05/19 07:40 03/05/19 07:40 Exam: Gen:awake, NAD, pleasant CVS:S1, S2, no murmurs Lungs: symmetric expansion, no rhonchi, mild difficulty with breathing Extremities:dorsal pulses normal 2+ b/l Abdomen:obese, non tender, atraumatic Psych:Confused, knew city, unsure of date - Assessment and Plan (1) Acute respiratory failure with hypercapnia Current Visit: Yes Status: Acute Assessment and Plan: -Admitted 02/24 with acute hypercapnic respiratory failure, noncompliant with home BiPap for 2 weeks -Has improved, denying any chest pains or trouble breathing today -On 7L of O2, O2 sat 90% while talking -Will lower prednisone dosage from 40mgPOBIDWM to 40mg in morning and 20mg in evening -Will continue to try to wean oxygen, BiPap as needed -ENT consulted for tracheostomy, wants to followup outpatient -Continue to follow (2) GAVIN (obstructive sleep apnea) Current Visit: Yes Status: Chronic Assessment and Plan: Continue Bipap at night (3) Obesity hypoventilation syndrome Current Visit: Yes Status: Chronic (4) COPD exacerbation Current Visit: No Status: Acute Assessment and Plan: -Continue duo nebs -Will continue prednisone however will do 40mg in am and 20mg in evening (5) Pneumonia Current Visit: No Status: Acute (6) Heart failure with preserved ejection fraction Current Visit: No Status: Chronic Assessment and Plan: -Strict I's & O's -Maintain low sodium diet -Continue carvedilol and amiodorone (7) Diabetes Current Visit: Yes Status: Chronic Assessment and Plan: -Continue to monitor sugar with am BMPs DVT Prophylaxis: Patient's taking warfarin with therapeutic INR at 2.1 - Time Spent with Patient Total time spent is greater than 50% in coordination of care (as documented) at patient's floor/unit and/or counseling patient: Internal Medicine: Result - Labs CBC & Chem 7: 03/05/19 03:00 03/05/19 03:00 Labs: Short CBC 03/05/19 Range/Units 03:00 WBC 10.6 (4.3-11.1) K/mcL Hgb 11.6 L (12.9-16.9) g/dL Hct 40.4 (37.5-50.1) % Plt Count 232 (140-400) K/mcL Neutrophils # 9.2 H (1.6-8.9) K/mcL BMP 03/05/19 03:00 Sodium 145 Potassium 3.0 L Chloride 89 L Carbon Dioxide > 45 H* BUN 29 H Creatinine 0.74 Glucose 130 H Calcium 9.0 - ABG Interpretation ABG results: ABG ABG pH 7.44 pH Units (7.32-7.45) 03/05/19 06:07 ABG pCO2 77 mmHg (35-45) H* 03/05/19 06:07 ABG pO2 96 mmHg (85-104) 03/05/19 06:07 ABG O2 Saturation 97 % (95-98) 03/05/19 06:07 PT/INR, D-dimer PT 21.1 Seconds (9.4-12.1) H 03/05/19 03:00 <Jarek Bennett - Last Filed: 03/05/19 13:16> (2) COPD (chronic obstructive pulmonary disease) Qualifiers: COPD type: COPD with acute exacerbation Qualified Code(s): J44.1 - Chronic obstructive pulmonary disease with (acute) exacerbation (3) HTN (hypertension) Qualifiers: Hypertension type: essential hypertension Qualified Code(s): I10 - Essential (primary) hypertension (4) Diabetes Qualifiers: Diabetes mellitus type: type 2 Diabetes mellitus assisted insulin use: with terminal worker use Diabetes mellitus complication status: with hyperglycemia Qualified Code(s): E11.65 - Type 2 diabetes mellitus with hyperglycemia; Z79.4 - joint terminal attack controller (current) use of insulin <Jose Mullen - Last Filed: 03/05/19 17:16> (5) Pneumonia Qualifiers: Pneumonia type: due to unspecified organism Laterality: right Lung location: unspecified part of lung Qualified Code(s): J18.9 - Pneumonia, unspecified organism (7) Diabetes Qualifiers: Diabetes mellitus type: type 2 Diabetes mellitus assisted insulin use: with assisted use Diabetes mellitus complication status: with hyperglycemia Qualified Code(s): E11.65 - Type 2 diabetes mellitus with hyperglycemia; Z79.4 - joint terminal attack controller (current) use of insulin
[2019-03-05] MEDS: rOPINIRole 1 MG TABLET PO SCH (08:51)
[2019-03-05] MEDS: Pantoprazole 40 MG VIAL IVP SCH (08:51)
[2019-03-05] MEDS: Furosemide 40 MG/4 ML VIAL IVP SCH (08:51)
[2019-03-05] MEDS: predniSONE 20 MG TABLET PO SCH ×2 (08:52→17:55)
[2019-03-05] MEDS: *HR* Amiodarone 200 MG TABLET PO SCH (08:52)
[2019-03-05] MEDS: Chlorhexidine Rinse 15 ML MOUTHWASH MM SCH ×2 (08:52→20:17)
[2019-03-05] MEDS: Budesonide/Formoterol 80/4.5 1 PUFF INH IH SCH ×2 (11:57→21:42)
--- NOTE | 2019-03-05 14:08 | Electrocardiograph Report ---
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
[2019-03-05] MEDS: Warfarin perPT PO SCH (17:55)
[2019-03-05] MEDS ORDERED: *HR* Warfarin 4 MG TABLET PO ONE (18:00)
--- NOTE | 2019-03-05 18:01 | Event Note ---
Date of Encounter: 03/05/19 Time of Encounter: 17:53 Mr. Rubalcava has had several events of altered mental status over the last day and a half. He is reported to have been confused this morning after waking up, and during his physical therapy session this morning. He is awake, alert, oriented 3 while I am talking with him at the bedside now, however, nursing staff indicates that he does have periods of confusion, seemingly at random. These events have occurred both while the patient is on BiPAP and while he is off BiPAP. The patient reports he has been having extremely vivid and confusing dreams over the last 2 nights, however, nursing staff indicates the things she is describing as "dreams" correlate exactly with his behavior during episodes of apparent delirium at night, when he will wake up confused and agitated. He has believed during these episodes that he had been stolen from [employer] and had to get back there, and at another time that his house was just next door. On further exam, patient does not have scleral icterus, extraocular muscles are intact, oropharynx appears normal with moist mucous membranes, breathing appears mildly labored, occasional wet sounding coughs are noted, patient is nontender to palpation of the right upper quadrant or anywhere in the belly, does not have rebound or guarding. Of note, he does report that for the last couple days he has had "trouble focusing" his vision, he denies specifically double vision but does report slight blurriness. He denies any chest pain, shortness of breath, confusion at this time, dizziness or lightheadedness, or headache. His ABG draws have shown steadily decreasing arterial PCO2, making CO2 narcosis unlikely as the source of these problems. In discussion with his nurse, and Dr. Bennett, we have decided to order a lactate to screen for sepsis, ammonia to screen for hepatic encephalopathy, thyroid panel to screen for thyroid imbalance, and given the patient's current status on warfarin, we will obtain a stat CT of the head without contrast to ensure there are no intracranial hemorrhages.
[2019-03-05 19:25] LABS: Alanine Aminotransferase 13 Units/L (7-52); Albumin 3.6 g/dL (3.5-5.7); Albumin/Globulin Ratio 1.3 (1.1-2.2); Alkaline Phosphatase 68 Units/L (34-104); Aspartate Amino Transferase 14 Units/L (13-39); BUN/Creatinine Ratio 34 (6-26); Bilirubin,Total 0.5 mg/dL (0.3-1.0); Blood Urea Nitrogen 30 mg/dL (6-20); Calcium 9.1 mg/dL (8.6-10.3); Carbon Dioxide 45 mEq/L (23-29); Chloride 90 mEq/L (98-107); Globulin 2.7 g/dL (2.4-3.5); Glucose 196 mg/dL (70-105); Osmolality,Calculated 306 (280-300); Potassium 3.2 mEq/L (3.5-5.1); Sodium 142 mEq/L (136-145); Thyroid Stimulating Hormone 0.581 mcIU/mL (0.340-5.600); Total Protein 6.3 g/dL (6.4-8.9); Triiodothyronine (T3) Free 2.51 pg/mL (2.50-3.90); eGFR For African Americans > 60 (> 60); eGFR For Non-African Americans > 60 (> 60)
[2019-03-06] MEDS: Ipratropium/Albuterol Neb 3 ML IH SCH ×4 (04:06→22:01)
[2019-03-06 05:09] LABS: ABG Base Excess 23 mEq/L (-2 to 3); ABG HCO3 51 mEq/L (21-27); ABG Oxygen Saturation 97 % (95-98); ABG PCO2 67 mmHg (35-45); ABG PH 7.49 pH Units (7.32-7.45); ABG PO2 85 mmHg (85-104); ABG TCO2 > 50 mEq/L (20-26); Blood Gas Modality NIV
[2019-03-06 05:57] LABS: Red Cell Distribution Width 14.7 % (11.5-14.5)
[2019-03-06 05:58] LABS: Eosinophils % 0.2 %; Hematocrit 38.3 % (37.5-50.1); Immature Granulocytes % 0.6 % (0-4); Lymphocytes % 8.5 %; Mean Corpuscular HGB Conc 28.7 g/dL (31.6-35.5); Mean Corpuscular Hemoglobin 25.2 pg (28.0-33.3); Mean Corpuscular Volume 87.8 fL (83.0-100.0); Mean Platelet Volume 9.3 fL (9.4-12.4); Monocytes % 8.4 %; Neutrophils # 9.8 K/mcL (1.6-8.9); Platelet Count 203 K/mcL (140-400); Red Blood Count 4.36 M/mcL (4.19-5.50); Segmented Neutrophils % 82.3 %; White Blood Count 11.9 K/mcL (4.3-11.1)
[2019-03-06 06:07] LABS: INR 1.8; Prothrombin Time 20.3 Seconds (9.4-12.1)
[2019-03-06 06:31] LABS: Alanine Aminotransferase 11 Units/L (7-52); Albumin 3.4 g/dL (3.5-5.7); Albumin/Globulin Ratio 1.4 (1.1-2.2); Alkaline Phosphatase 63 Units/L (34-104); Aspartate Amino Transferase 11 Units/L (13-39); BUN/Creatinine Ratio 44 (6-26); Bilirubin,Total 0.6 mg/dL (0.3-1.0); Blood Urea Nitrogen 28 mg/dL (6-20); Calcium 8.8 mg/dL (8.6-10.3); Carbon Dioxide > 45 mEq/L (23-29); Chloride 90 mEq/L (98-107); Globulin 2.4 g/dL (2.4-3.5); Glucose 138 mg/dL (70-105); Osmolality,Calculated 304 (280-300); Platelet Estimate Normal (Normal); Potassium 3.1 mEq/L (3.5-5.1); Sodium 143 mEq/L (136-145); Total Protein 5.8 g/dL (6.4-8.9); eGFR For African Americans > 60 (> 60); eGFR For Non-African Americans > 60 (> 60)
[2019-03-06 06:32] LABS: Hypochromasia Present (Not Present); Stomatocytes 1+ (Not Present)
[2019-03-06] MEDS: rOPINIRole 1 MG TABLET PO SCH (09:26)
[2019-03-06] MEDS: predniSONE 20 MG TABLET PO SCH ×2 (09:26→17:23)
[2019-03-06] MEDS: *HR* Amiodarone 200 MG TABLET PO SCH (09:27)
[2019-03-06] MEDS: Chlorhexidine Rinse 15 ML MOUTHWASH MM SCH ×2 (09:29→19:44)
[2019-03-06] MEDS: Furosemide 40 MG/4 ML VIAL IVP SCH (09:30)
--- NOTE | 2019-03-06 10:19 | Internal Med Progress Note ---
<Carlota Mcgrath - Last Filed: 03/06/19 14:19> Hospitalist Progress Note - Encounter Date of Encounter: 03/06/19 - Exam Vitals: Temp Pulse Resp BP Pulse Ox 98.4 F 80 18 124/77 96 03/06/19 11:40 03/06/19 11:40 03/06/19 12:01 03/06/19 11:40 03/06/19 12:01 - Assessment and Plan (1) GAVIN (obstructive sleep apnea) Current Visit: Yes Status: Chronic (2) Acute on chronic respiratory failure with hypercapnia Current Visit: Yes Status: Acute (3) Diabetes Current Visit: Yes Status: Chronic (4) Morbid obesity with BMI of 50.0-59.9, adult Current Visit: No Status: Chronic (5) COPD (chronic obstructive pulmonary disease) Current Visit: Yes Status: Acute (6) Paroxysmal atrial fibrillation Current Visit: Yes Status: Chronic (7) HTN (hypertension) Current Visit: Yes Status: Chronic - Time Spent with Patient Total time spent is greater than 50% in coordination of care (as documented) at patient's floor/unit and/or counseling patient: Internal Medicine: Result - Labs CBC & Chem 7: 03/06/19 05:22 03/06/19 05:22 Labs: Short CBC 03/06/19 Range/Units 05:22 WBC 11.9 H (4.3-11.1) K/mcL Hgb 11.0 L (12.9-16.9) g/dL Hct 38.3 (37.5-50.1) % Plt Count 203 (140-400) K/mcL Neutrophils # 9.8 H (1.6-8.9) K/mcL BMP 03/05/19 03/06/19 18:00 05:22 Sodium 142 143 Potassium 3.2 L 3.1 L Chloride 90 L 90 L Carbon Dioxide 45 H* > 45 H* BUN 30 H 28 H Creatinine 0.88 0.63 L Glucose 196 H 138 H Calcium 9.1 8.8 Liver Function 03/05/19 03/06/19 Range/Units 18:00 05:22 Total Bilirubin 0.5 0.6 (0.3-1.0) mg/dL AST 14 11 L (13-39) Units/L ALT 13 11 (7-52) Units/L Alkaline Phosphatase 68 63 (34-104) Units/L Albumin 3.6 3.4 L (3.5-5.7) g/dL - ABG Interpretation ABG results: ABG ABG pH 7.49 pH Units (7.32-7.45) H 03/06/19 05:03 ABG pCO2 67 mmHg (35-45) H 03/06/19 05:03 ABG pO2 85 mmHg (85-104) 03/06/19 05:03 ABG O2 Saturation 97 % (95-98) 03/06/19 05:03 PT/INR, D-dimer PT 20.3 Seconds (9.4-12.1) H 03/06/19 05:22 - Impressions Impressions Head CT 03/05/19 17:35 IMPRESSION: No acute intracranial abnormality. D/ / Farhat Nuno MD / Farhat Nuno MD Interpreting Provider: Farhat Nuno MD Consult Discharge Plan - Plan Referrals: Jay Cool MD [Non-Partnered Physician] - 03/11/19 11:15 am Jas Frey MD [Partnered Physician] - 03/14/19 1:30 pm - Attending Attestation The history, physical exam, and medical decision making was performed by the medical student either while I was physically present and actively involved or I personally re-performed the exam and medical decision making. I have verified the accuracy of the medical student's documentation with regards to the history, physical exam findings, and medical decision making. Mr Rubalcava is admitted for acute on chronic resp failure and GAVIN He is awake and in chair, feeling best he has this admission. he denies confusion. sob stable on o2 nc. denies cough or wheezing gen- alert, awake,appears stated age, obese cv- reg rate and rhythm, normal s1,s2, no murmurs appreciated, trace pitting le edema lungs- ctabl, no wheezing, rhonchi or crackles, normal resp effort on o2 nc abd- soft, non tender, non distended, + bs neuro- AAOx3 Acute on Chronic hypoxic and hypercarbic Resp failure - weaned to o2 nc, cont current steroids and will taper slowly pAfib- currently NSR, on warfarin with subtherapeutic INR today, cont warfarin per pharmacy, no bridge needed at this time [place]- PO repletion FUrther diagnoses and plan as noted by student dispo likely to snf <Jose Mullen - Last Filed: 03/06/19 16:09> Hospitalist Progress Note - Encounter Date of Encounter: 03/06/19 Time of Encounter: 10:19 - Subjective Interval History: Pt was finishing getting a bath when I arrived. He was sitting up in bed and greeted me upon arrival. States that he is feeling much better in regards to his breathing and feeling less confused today. Denies any chest pain, SOB, abdominal pain, diarrhea, constipation, fevers. - Exam Vitals: Temp Pulse Resp BP Pulse Ox 98.0 F 78 16 143/80 92 03/06/19 07:52 03/06/19 09:10 03/06/19 09:10 03/06/19 07:52 03/06/19 09:10 Exam: Gen:awake, NAD, pleasant CVS:S1, S2, no murmurs Lungs: symmetric expansion, productive cough, no rhonchi, mild expiratory wheeze Extremities:dorsal pulses normal 2+ b/l Abdomen:obese, non tender, no guarding Psych:AAOx3, answered questions appropriately, good thought process - Assessment and Plan (1) Acute respiratory failure with hypercapnia Current Visit: Yes Status: Acute Assessment and Plan: -Admitted 02/24 with acute hypercapnic respiratory failure, noncompliant with home BiPap for 2 weeks -Has improved, denying any chest pains or trouble breathing today -On 4.5L O2--this is his baseline -O2 sat 92% while talking in bed -Continue prednisone taper- currently 40mg PO am & 20mg PO pm -Will continue to try to wean oxygen, BiPap as needed -ENT consulted for tracheostomy, wants to followup outpatient -Repeat VBG in am -Plan is to anticipate deescalate prednisone, SNF at discharge -Continue to follow (2) GAVIN (obstructive sleep apnea) Current Visit: Yes Status: Chronic Assessment and Plan: -Continue BiPap at night (3) Obesity hypoventilation syndrome Current Visit: Yes Status: Chronic (4) Hypokalemia Current Visit: Yes Status: Acute Assessment and Plan: -Potassium 3.1 9 -Supplemented with 40mgPO of potassium- order put in for daily potassium supplementation -Recheck BMP in am (5) COPD exacerbation Current Visit: No Status: Acute Assessment and Plan: -Continue duo nebs -Prednisone 40mgPO am & 20mgPO pm --deescalated from 40mgPOBIDWM (6) Heart failure with preserved ejection fraction Current Visit: No Status: Chronic Assessment and Plan: -Continue carvedilol & amiodorone -Deescalated from Lasix 40mgPOBID to 40mg IV Lasix daily -Strict I's & O's -Low sodium diet (7) Diabetes Current Visit: Yes Status: Chronic Assessment and Plan: -Continue to monitor sugars w/ morning BMPs DVT Prophylaxis: Patient's taking warfarin with therapeutic INR at 2.1 - Time Spent with Patient Total time spent is greater than 50% in coordination of care (as documented) at patient's floor/unit and/or counseling patient: Internal Medicine: Result - Labs CBC & Chem 7: 03/06/19 05:22 03/06/19 05:22 Labs: Short CBC 03/06/19 Range/Units 05:22 WBC 11.9 H (4.3-11.1) K/mcL Hgb 11.0 L (12.9-16.9) g/dL Hct 38.3 (37.5-50.1) % Plt Count 203 (140-400) K/mcL Neutrophils # 9.8 H (1.6-8.9) K/mcL BMP 03/05/19 03/06/19 18:00 05:22 Sodium 142 143 Potassium 3.2 L 3.1 L Chloride 90 L 90 L Carbon Dioxide 45 H* > 45 H* BUN 30 H 28 H Creatinine 0.88 0.63 L Glucose 196 H 138 H Calcium 9.1 8.8 Liver Function 03/05/19 03/06/19 Range/Units 18:00 05:22 Total Bilirubin 0.5 0.6 (0.3-1.0) mg/dL AST 14 11 L (13-39) Units/L ALT 13 11 (7-52) Units/L Alkaline Phosphatase 68 63 (34-104) Units/L Albumin 3.6 3.4 L (3.5-5.7) g/dL - ABG Interpretation ABG results: ABG ABG pH 7.49 pH Units (7.32-7.45) H 03/06/19 05:03 ABG pCO2 67 mmHg (35-45) H 03/06/19 05:03 ABG pO2 85 mmHg (85-104) 03/06/19 05:03 ABG O2 Saturation 97 % (95-98) 03/06/19 05:03 PT/INR, D-dimer PT 20.3 Seconds (9.4-12.1) H 03/06/19 05:22 - Impressions Impressions Head CT 03/05/19 17:35 IMPRESSION: No acute intracranial abnormality. D/ / Farhat Nuno MD / Farhat Nuno MD Interpreting Provider: Farhat Nuno MD <Carlota Mcgrath - Last Filed: 03/06/19 14:19> (3) Diabetes Qualifiers: Diabetes mellitus type: type 2 Diabetes mellitus halfway insulin use: with halfway use Diabetes mellitus complication status: with hyperglycemia Qu alified Code(s): E11.65 - Type 2 diabetes mellitus with hyperglycemia; Z79.4 - terminal gauger (current) use of insulin (5) COPD (chronic obstructive pulmonary disease) Qualifiers: COPD type: COPD with acute exacerbation Qualified Code(s): J44.1 - Chronic obstructive pulmonary disease with (acute) exacerbation (7) HTN (hypertension) Qualifiers: Hypertension type: essential hypertension Qualified Code(s): I10 - Essential (primary) hypertension <Jose Mullen - Last Filed: 03/06/19 16:09> (7) Diabetes Qualifiers: Diabetes mellitus type: type 2 Diabetes mellitus halfway insulin use: with halfway use Diabetes mellitus complication status: with hyperglycemia Qualified Code(s): E11.65 - Type 2 diabetes mellitus with hyperglycemia; Z79.4 - shelter (current) use of insulin
[2019-03-06] MEDS: Budesonide/Formoterol 80/4.5 1 PUFF INH IH SCH ×2 (11:02→22:01)
[2019-03-06] MEDS: Warfarin perPT PO SCH (17:25)
[2019-03-06] MEDS ORDERED: *HR* Warfarin 3 MG TABLET PO ONE (18:00)
[2019-03-06] MEDS: rOPINIRole 0.25 MG TABLET PO SCH (19:44)
[2019-03-06] MEDS ORDERED: Acetaminophen 325 MG TABLET PO PRN (23:25)
[2019-03-07] MEDS: Ipratropium/Albuterol Neb 3 ML IH SCH ×4 (04:17→21:51)
[2019-03-07 05:33] LABS: Eosinophils % 0.1 %; Hematocrit 39.1 % (37.5-50.1)
[2019-03-07 05:35] LABS: Hemoglobin 11.4 g/dL (12.9-16.9); Immature Granulocytes % 0.4 % (0-4); Lymphocytes # 1.1 K/mcL (0.6-4.6); Mean Corpuscular HGB Conc 29.2 g/dL (31.6-35.5); Mean Corpuscular Hemoglobin 25.1 pg (28.0-33.3); Mean Corpuscular Volume 86.1 fL (83.0-100.0); Mean Platelet Volume 9.8 fL (9.4-12.4); Monocytes # 0.9 K/mcL (0.0-1.3); Monocytes % 8.6 %; Neutrophils # 8.5 K/mcL (1.6-8.9); Platelet Count 179 K/mcL (140-400); Red Blood Count 4.54 M/mcL (4.19-5.50); Red Cell Distribution Width 14.6 % (11.5-14.5); Segmented Neutrophils % 80.9 %; White Blood Count 10.5 K/mcL (4.3-11.1)
[2019-03-07 05:38] LABS: VBG HCO3 49 mEq/L (21-27); VBG PCO2 78 mmHg (41-51); VBG PO2 105 mmHg (25-50)
[2019-03-07 05:43] LABS: INR 1.9; Prothrombin Time 21.7 Seconds (9.4-12.1)
[2019-03-07 05:54] LABS: BUN/Creatinine Ratio 38 (6-26); Blood Urea Nitrogen 24 mg/dL (6-20); Calcium 8.8 mg/dL (8.6-10.3); Carbon Dioxide > 45 mEq/L (23-29); Chloride 91 mEq/L (98-107); Glucose 129 mg/dL (70-105); Osmolality,Calculated 300 (280-300); Potassium 3.7 mEq/L (3.5-5.1); Sodium 142 mEq/L (136-145); eGFR For African Americans > 60 (> 60); eGFR For Non-African Americans > 60 (> 60)
[2019-03-07 06:01] LABS: Hypochromasia Present (Not Present); Platelet Estimate Normal (Normal)
--- NOTE | 2019-03-07 07:53 | Internal Med Progress Note ---
Hospitalist Progress Note - Encounter Date of Encounter: 03/07/19 Time of Encounter: 08:00 - Exam Vitals: Temp Pulse Resp BP Pulse Ox 98 F 59 12 129/67 100 03/07/19 04:32 03/07/19 04:32 03/07/19 04:32 03/07/19 04:32 03/07/19 04:32 - Assessment and Plan (1) Acute respiratory failure with hypercapnia Current Visit: Yes Status: Acute (2) Obesity hypoventilation syndrome Current Visit: Yes Status: Chronic (3) COPD (chronic obstructive pulmonary disease) Current Visit: Yes Status: Chronic (4) GAVIN (obstructive sleep apnea) Current Visit: Yes Status: Chronic (5) Heart failure with preserved ejection fraction Current Visit: No Status: Chronic (6) Diabetes Current Visit: Yes Status: Chronic - Time Spent with Patient Total time spent is greater than 50% in coordination of care (as documented) at patient's floor/unit and/or counseling patient: Internal Medicine: Result - Labs CBC & Chem 7: 03/07/19 05:15 03/07/19 05:15 Labs: Short CBC 03/07/19 Range/Units 05:15 WBC 10.5 (4.3-11.1) K/mcL Hgb 11.4 L (12.9-16.9) g/dL Hct 39.1 (37.5-50.1) % Plt Count 179 (140-400) K/mcL Neutrophils # 8.5 (1.6-8.9) K/mcL BMP 03/07/19 05:15 Sodium 142 Potassium 3.7 Chloride 91 L Carbon Dioxide > 45 H* BUN 24 H Creatinine 0.63 L Glucose 129 H Calcium 8.8 - ABG Interpretation ABG results: ABG ABG pH 7.49 pH Units (7.32-7.45) H 03/06/19 05:03 ABG pCO2 67 mmHg (35-45) H 03/06/19 05:03 ABG pO2 85 mmHg (85-104) 03/06/19 05:03 ABG O2 Saturation 97 % (95-98) 03/06/19 05:03 PT/INR, D-dimer PT 21.7 Seconds (9.4-12.1) H 03/07/19 05:15 Consult Discharge Plan - Plan Referrals: Jay Cool MD [Non-Partnered Physician] - 03/11/19 11:15 am Jas Frey MD [Partnered Physician] - 03/14/19 1:30 pm (3) COPD (chronic obstructive pulmonary disease) Qualifiers: COPD type: unspecified COPD Qualified Code(s): J44.9 - Chronic obstructive pulmonary disease, unspecified (6) Diabetes Qualifiers: Diabetes mellitus type: type 2 Diabetes mellitus exterminator termite insulin use: with halfway use Diabetes mellitus complication status: with hyperglycemia Qualified Code(s): E11.65 - Type 2 diabetes mellitus with hyperglycemia; Z79.4 - [facility] (current) use of insulin
[2019-03-07] MEDS: rOPINIRole 0.25 MG TABLET PO SCH ×2 (08:18→21:00)
[2019-03-07] MEDS: *HR* Amiodarone 200 MG TABLET PO SCH (08:18)
[2019-03-07] MEDS: Furosemide 40 MG/4 ML VIAL IVP SCH (08:19)
[2019-03-07] MEDS: predniSONE 20 MG TABLET PO SCH ×2 (08:19→17:13)
[2019-03-07] MEDS: Chlorhexidine Rinse 15 ML MOUTHWASH MM SCH ×2 (08:19→21:00)
[2019-03-07 08:33] LABS: Magnesium 2.1 mg/dL (1.6-2.6)
[2019-03-07] MEDS: Budesonide/Formoterol 80/4.5 1 PUFF INH IH SCH ×2 (09:44→21:52)
--- NOTE | 2019-03-07 12:36 | Discharge Summary ---
<Jasen Reyes S - Last Filed: 03/07/19 14:12> - NOTES TO OUTPATIENT PROVIDER Notes to Outpatient Provider: Mr. Rubalcava was seen here for acute hypercapnic hypoxemic respiratory failure, secondary to noncompliance with home BiPAP use while sleeping. He was also found to be slightly fluid overloaded. He was intubated for his acute respiratory failure, and subsequently extubated to BiPAP, he was BiPAP dependent for several days, and has successfully been weaned down to 4 L by nasal cannula. Other ongoing therapies include prednisone, he will be given a taper, which will consist of 40 mg by mouth for 3 days, 30 mg by mouth for 3 days, 20 mg by mouth for 3 days, and 10 mg by mouth for 3 days. His INR was slightly subtherapeutic for much of his stay here, he should continue his 8 mg heparin dose. Of note, he will require a recheck of his INR within 48 hours, his goal INR is between 2 and 3. Date of Encounter: 03/07/19 Time of Encounter: 12:36 - Discharge Diagnosis (1) Acute respiratory failure with hypercapnia Priority: Primary Status: Acute Assessment and Plan: Patient has chronic CO2 retention. Blood gases have continued to show CO2 retention, though this is slowly improving Acute respiratory failure is resolved at this time. * Continue nasal cannula at 4 L/m * Continue BiPAP with EPAP of 8 and IPAP of 16 whenever the patient is sleeping, HE CANNOT SLEEP WITHOUT HIS BIPAP * Patient has scheduled follow-up with pulmonology * Patient has scheduled follow-up with ENT to plan for outpatient tracheostomy (2) Obesity hypoventilation syndrome Priority: Secondary Status: Chronic Assessment and Plan: Chronic CO2 retention as noted above, Patient stable at this time, blood gases show improvement over time Follow-up with pulmonology as noted above (3) COPD (chronic obstructive pulmonary disease) Priority: Secondary Status: Chronic Assessment and Plan: Patient is without wheezing at this time Taper prednisone: * 40 mg by mouth for 3 days * 30 mg by mouth for 3 days * 20 mg by mouth for 3 days * 10 mg by mouth for 3 days Qualifiers: COPD type: unspecified COPD Qualified Code(s): J44.9 - Chronic obstructive pulmonary disease, unspecified (4) GAVIN (obstructive sleep apnea) Priority: Secondary Status: Chronic Assessment and Plan: Patient must wear BiPAP at all times while sleeping as noted above (5) Heart failure with preserved ejection fraction Priority: Secondary Status: Chronic Assessment and Plan: Patient has responded well to diuresis, I & O showing loss of over 14 L during his stay Qualifiers: Qualified Code(s): I50.30 - Unspecified diastolic (congestive) heart failure Hospital course: Mr. Rubalcava is a 58 year old male who was seen here for acute hypercapnic hypoxemic respiratory failure, secondary to noncompliance with home BiPAP while sleeping. He has a history of COPD/CHF/A. fib. He was found to be in severe respiratory failure and was intubated. He spent 2 days intubated in the ICU, after which she was successfully extubated to BiPAP. He remained BiPAP dependent for several days, with severe desaturations any time he removed his BiPAP even briefly. He eventually was able to be weaned to nasal cannula and has been successfully weaned down to his prior home oxygen requirement of 4 L/m by nasal cannula. He was found to be significantly fluid overloaded, and has been being diuresed. Recording intake and output has shown that he is not negative by almost 14-1/2 L through the course of his hospital stay. We believe that this is contributing significantly to his improved respiratory function, and subjective clinical status. He was initially treated for suspicion of pneumonia, however testing showed this to be unlikely, name antibiotics were stopped. The patient's problem list includes diabetes, however and discussions with the patient he states he is not diabetic.He has received no anti-hyperglycemics and no insulin while here, and his blood glucose has been mildly elevated, however the patient has been on IV steroids during this time, which may be an alternate etiology of his hyperglycemia. Further outpatient workup will be required for formal diagnosis or exclusion of diabetes Discharge discussed with: patient - Time Spent with Patient Total time spent providing and/or coordinating discharge services: - Discharge Medications Prescriptions: New predniSONE [PredniSONE] 10 mg PO DAILY 12 Days #30 tablet Acetaminophen [Tylenol] 650 mg PO Q6HR PRN tablet PRN Reason: Mild Pain (1-3) Continued Multivitamin/Ferrous Sulfate [One-Daily Gqczv-Kon-Xqrf Tab] 1 tab PO DAILY Atorvastatin Calcium [Lipitor] 80 mg PO DAILY Amiodarone [Cordarone] 200 mg PO DAILY Fluticasone/Salmeterol [Advair Hfa 45-21 Mcg Inhaler] 2 puff IH BID Warfarin [Coumadin] 8 mg PO 1800 Citalopram Hydrobromide [Citalopram HBr] 60 mg PO DAILY Ipratropium/Albuterol Sulfate [Iprat-Albut 0.5-3(2.5) mg/3 ml] 3 ml IH Q6H Furosemide [Lasix] 40 mg PO BID Ropinirole HCl [Requip] 0.5 mg PO DAILY Carvedilol [Coreg] 3.125 mg PO BIDWM tablet Potassium Chloride [K-Tab ER] 10 meq PO BID Home Medications: Atorvastatin Calcium [Lipitor] 80 mg PO DAILY 05/04/15 [History] Multivitamin/Ferrous Sulfate [One-Daily Kzraa-Ler-Svxg Tab] 1 tab PO DAILY 05/04/15 [History] Amiodarone [Cordarone] 200 mg PO DAILY 11/23/17 [History] Fluticasone/Salmeterol [Advair Hfa 45-21 Mcg Inhaler] 2 puff IH BID 01/04/18 [History] Warfarin [Coumadin] 8 mg PO 1800 01/04/18 [History] Citalopram Hydrobromide [Citalopram HBr] 60 mg PO DAILY 07/09/18 [History] Ipratropium/Albuterol Sulfate [Iprat-Albut 0.5-3(2.5) mg/3 ml] 3 ml IH Q6H 10/08/18 [History] Furosemide [Lasix] 40 mg PO BID 11/05/18 [History] Ropinirole HCl [Requip] 0.5 mg PO DAILY 12/16/18 [History] Carvedilol [Coreg] 3.125 mg PO BIDWM tablet 12/22/18 [Rx] Potassium Chloride [K-Tab ER] 10 meq PO BID 02/25/19 [History] Acetaminophen [Tylenol] 650 mg PO Q6HR PRN tablet 03/07/19 [Rx] predniSONE [PredniSONE] 10 mg PO DAILY 12 Days #30 tablet 03/07/19 [Rx] Allergies/Adverse Reactions: Allergy/AdvReac Type Severity Reaction Status Date / Time OLIVER Inhibitors AdvReac Cough Verified 02/25/19 11:00 Date of admission: 02/24/19 20:02 Primary care physician: PCP NONE Consults: 02/24/19 20:38 Consult to Pulmonology [CONS] Routine Consulting Provider: [facility] Reason for Consult: Acute hypoxic respiratory failure requiring intubation Call Completed: No 02/25/19 13:52 Consult to Nutrition [CONS] Stat Comment: Consulting Provider: NUTRITION Reason for Dietary Consult: Tube Feed Start & Manage 02/27/19 08:41 Consult to Invasive Line Access Team [CONS] Routine Reason for Consult: Poor IV access Line Type: EPIV 02/28/19 09:41 Consult to Nurse Navigator [CONS] Routine Comment: COPD / Compass Care 03/04/19 15:15 Consult to Physical Therapy [CONS] Routine Comment: Evaluate, develop and implement POC Reason for Consult: eval of patient's ability to ambulate independently Does patient have active BEDREST order?: No Is patient medically & hemodynamically stable?: Yes 03/04/19 15:30 Consult to ENT [CONS] Routine Consulting Provider: IVAN Pizarro Reason for Consult: Explore options to definitively manage his recurrent hospitalizations for respiratory failure Time Notified: 15:31 Call Completed: Yes 03/05/19 07:53 Consult to Occupational Therapy [CONS] Routine Comment: Evaluate, develop and implement POC Reason for Consult: weakness possible need for rehab Does patient have active BEDREST order?: No Is patient medically & hemodynamically stable?: Yes Patient assessed for mobility or mobilized this visit?: Yes Discharging clinician: Jasen Reyes Anticipated date of discharge: 03/07/19 - Constitutional Vitals: Temp Pulse Resp BP Pulse Ox 98.4 F 72 17 104/63 96 03/07/19 11:00 03/07/19 11:00 03/07/19 11:00 03/07/19 11:00 03/07/19 11:00 Exam: Gen: Awake and alert, no acute distress, obese, eating lunch Head: Normocephalic, atraumatic Eyes: EOMI, no scleral icterus ENT: Mucous membranes moist, no oropharyngeal erythema CV: S1-S2 present, regular at approximately 80, no murmurs rubs or gallops Pulm: CTAB, not tachypneic, no respiratory distress, no increased work of breathing Abd: Soft, nontender to palpation, obese, nondistended, no rebound or guarding. EXT: Grossly intact motor strength in all 4 extremities, no lower extremity edema, no distal cyanosis or pallor Skin: Warm, dry, intact, no rashes or lesions noted Neuro: Cranial nerves II-XII grossly intact, no focal nurologic deficits Psych: normal mood and affect, Answers questions with intact judgement, appropriate insight, and linear thought - Patient Status Disposition: Transfer SNF Condition: Fair Functional capacity at discharge: uses cane/walker Overall status at discharge: patient is progressing back to baseline - Discharge Instructions Instructions: Atrial Fibrillation (DC), Acute Respiratory Distress Syndrome (DC), Chronic Obstructive Pulmonary Disease (DC), BiPAP (GEN) Follow Up With: Jay Cool MD [Non-Partnered Physician] - 03/11/19 11:15 am Henrry Krishnan MD [Non-Partnered Physician] - Jas Frey MD [Partnered Physician] - 03/14/19 1:30 pm - Diet and Activity Activity: as per physical therapy Diet: advance to your usual diet <Carlota Mcgrath - Last Filed: 03/07/19 15:48> Date of Encounter: 03/07/19 - Discharge Diagnosis (1) GAVIN (obstructive sleep apnea) Status: Chronic (2) Acute on chronic respiratory failure with hypercapnia Status: Acute (3) Diabetes Status: Chronic Qualifiers: Diabetes mellitus type: type 2 Diabetes mellitus penitentiary insulin use: with terminal system operator use Diabetes mellitus complication status: with hyperglycemia Qualified Code(s): E11.65 - Type 2 diabetes mellitus with hyperglycemia; Z79.4 - retirement (current) use of insulin (4) Morbid obesity with BMI of 50.0-59.9, adult Status: Chronic (5) COPD (chronic obstructive pulmonary disease) Status: Acute Qualifiers: COPD type: COPD with acute exacerbation Qualified Code(s): J44.1 - Chronic obstructive pulmonary disease with (acute) exacerbation (6) Paroxysmal atrial fibrillation Status: Chronic (7) HTN (hypertension) Status: Chronic Qualifiers: Hypertension type: essential hypertension Qualified Code(s): I10 - Essential (primary) hypertension Hospital course: Mr. Rubalcava is a 58 year old male - Time Spent with Patient Total time spent providing and/or coordinating discharge services: Date of admission: 02/24/19 20:02 Primary care physician: PCP NONE Consults: 02/24/19 20:38 Consult to Pulmonology [CONS] Routine Consulting Provider: [facility] [place] Reason for Consult: Acute hypoxic respiratory failure requiring intubation Call Completed: No 02/25/19 13:52 Consult to Nutrition [CONS] Stat Comment: Consulting Provider: NUTRITION Reason for Dietary Consult: Tube Feed Start & Manage 02/27/19 08:41 Consult to Invasive Line Access Team [CONS] Routine Reason for Consult: Poor IV access Line Type: EPIV 02/28/19 09:41 Consult to Nurse Navigator [CONS] Routine Comment: COPD / Compass Care 03/04/19 15:15 Consult to Physical Therapy [CONS] Routine Comment: Evaluate, develop and implement POC Reason for Consult: eval of patient's ability to ambulate independently Does patient have active BEDREST order?: No Is patient medically & hemodynamically stable?: Yes 03/04/19 15:30 Consult to ENT [CONS] Routine Consulting Provider: ENT [facility] Reason for Consult: Explore options to definitively manage his recurrent hospitalizations for respiratory failure Time Notified: 15:31 Call Completed: Yes 03/05/19 07:53 Consult to Occupational Therapy [CONS] Routine Comment: Evaluate, develop and implement POC Reason for Consult: weakness possible need for rehab Does patient have active BEDREST order?: No Is patient medically & hemodynamically stable?: Yes Patient assessed for mobility or mobilized this visit?: Yes - Constitutional Vitals: Temp Pulse Resp BP Pulse Ox 98.4 F 72 17 104/63 96 03/07/19 11:00 03/07/19 11:00 03/07/19 11:00 03/07/19 11:00 03/07/19 11:00 - Attending Attestation I examined this patient and my medical decision-making was reviewed with the Resident Physician Dr Reyes. I agree with the documented findings, disposition and treatment plan as described except to the extent set forth below. Mr Rubalcava is admitted for acute on chronic resp failure and GAVIN . He is returned to baseline resp status and will dc to snf with outpt fu He is awake, lying flat in bed. He has no sob, wheezing cough or orthopnea, le edema significantly improved. eager for dc to snf. dc plan discussed and he has no questions. gen- alert, awake,appears stated age, obese cv- reg rate and rhythm, normal s1,s2, no murmurs appreciated, no pitting le edema lungs- ctabl, no wheezing, rhonchi or crackles, normal resp effort on o2 nc neuro- AAOx3 Acute on Chronic hypoxic and hypercarbic Resp failure resolved- 4L cont while awake, bipap when sleeping, out pt ENT for outpt trach, fu with pulm, steroid taper pAfib- remains NSR, on warfarin with subtherapeutic INR today 1.9, cont warfarin home dose (NOT heparin as noted in resident documentation) INR check in 2 days Acute on chronic HFpEF, resolved- resume home lasix PO dosing (which is equivalent of his IV dosing over last 2 days with continued stability) FUrther diagnoses and plan as noted by resident time spent on dc 50 min
--- NOTE | 2019-03-07 12:38 | Physician Discharge Referral ---
<Jasen Reyes S - Last Filed: 03/07/19 14:18> ExtendedCare Referral Info Transfer To: [facility] Provider in Charge: Jasen Reyes Provider in Charge after Transfer: PCP Institutional Level of Care: Skilled - Diagnosis (1) Acute respiratory failure with hypercapnia Priority: Primary Status: Acute (2) Obesity hypoventilation syndrome Priority: Secondary Status: Chronic (3) COPD (chronic obstructive pulmonary disease) Priority: Secondary Status: Chronic (4) GAVIN (obstructive sleep apnea) Priority: Secondary Status: Chronic (5) Heart failure with preserved ejection fraction Priority: Secondary Status: Chronic (6) Diabetes Priority: Secondary Status: Chronic Prognosis: Fair Aware of Diagnosis: Patient Aware of Prognosis: Patient - Transfer Medications Prescriptions: predniSONE [PredniSONE] 10 mg PO DAILY 12 Days #30 tablet Home Medications: Atorvastatin Calcium [Lipitor] 80 mg PO DAILY 05/04/15 [History] Multivitamin/Ferrous Sulfate [One-Daily Voruz-Uyy-Iach Tab] 1 tab PO DAILY 05/04/15 [History] Amiodarone [Cordarone] 200 mg PO DAILY 11/23/17 [History] Fluticasone/Salmeterol [Advair Hfa 45-21 Mcg Inhaler] 2 puff IH BID 01/04/18 [History] Warfarin [Coumadin] 8 mg PO 1800 01/04/18 [History] Citalopram Hydrobromide [Citalopram HBr] 60 mg PO DAILY 07/09/18 [History] Ipratropium/Albuterol Sulfate [Iprat-Albut 0.5-3(2.5) mg/3 ml] 3 ml IH Q6H 10/08/18 [History] Furosemide [Lasix] 40 mg PO BID 11/05/18 [History] Ropinirole HCl [Requip] 0.5 mg PO DAILY 12/16/18 [History] Carvedilol [Coreg] 3.125 mg PO BIDWM tablet 12/22/18 [Rx] Potassium Chloride [K-Tab ER] 10 meq PO BID 02/25/19 [History] Acetaminophen [Tylenol] 650 mg PO Q6HR PRN tablet 03/07/19 [Rx] predniSONE [PredniSONE] 10 mg PO DAILY 12 Days #30 tablet 03/07/19 [Rx] Allergies/Adverse Reactions: Allergy/AdvReac Type Severity Reaction Status Date / Time OLIVER Inhibitors AdvReac Cough Verified 02/25/19 11:00 - Respiratory Orders Oxygen / L per min (4 L per minute), Other (Patient MUST BE ON BIPAP ANY TIME HE IS ASLEEP! This includes both at night and during daytime napping) Smoking Cessation: Smoking cessation has been advised. For more information, call the [employer] Line at 7-665-UJSQ-NOW. - Lab Orders Lab Orders: Other (include drug levels w/frequency) (INR check to be performed 48 hours after discharge from the hospital (Monday, 03/09 in the afternoon). Please titrate warfarin dose to achieve target INR between 2 and 3) - Advance Directives Code Status: Full Code - Mobility Orders Other (Per physical therapy recommendations) - Rehabiliation Orders Rehab Potential: Good Other: PT as recommended by our inpatient physical therapist and occupational therapist, he may be reevaluated as needed by physical therapist at your facility - Treatments List/Other: Patient is to taper prednisone * 40 mg by mouth every morning 3 days * 30 mg by mouth every morning 3 days * 20 mg by mouth every morning 3 days * 10 mg by mouth every morning 3 days - Diet Orders Regular CERTIFICATION: I certify that the transfer of the above named patient to an Extended Care Facility is necessary for the continuing treatment of the diagnosis listed. The above information is true and accurate reflection of patient's current condition. Confidential - Redisclosure prohibited without a patient's written consent. <Carlota Mcgrath - Last Filed: 03/07/19 15:49> - Diagnosis (1) GAVIN (obstructive sleep apnea) Status: Chronic (2) Acute on chronic respiratory failure with hypercapnia Status: Acute (3) Diabetes Status: Chronic (4) Morbid obesity with BMI of 50.0-59.9, adult Status: Chronic (5) COPD (chronic obstructive pulmonary disease) Status: Acute (6) Paroxysmal atrial fibrillation Status: Chronic (7) HTN (hypertension) Status: Chronic - Respiratory Orders Other Smoking Cessation: Smoking cessation has been advised. For more information, call the [employer] Line at 5-617-OCWT-NOW. - Lab Orders Lab Orders: Other (include drug levels w/frequency) - Mobility Orders Other - Rehabiliation Orders Rehab Orders: ROM Exercises, Evaluation for Physical Therapy, Evaluation for Occupational Therapy - Diet Orders No Added Salt (PRASANNA), No Concentrated Sweets, Cardiac CERTIFICATION: I certify that the transfer of the above named patient to an Extended Care Facility is necessary for the continuing treatment of the diagnosis listed. The above information is true and accurate reflection of patient's current condition. Confidential - Redisclosure prohibited without a patient's written consent.
[2019-03-07] MEDS: Warfarin perPT PO SCH (17:26)
[2019-03-07] MEDS ORDERED: *HR* Warfarin 3 MG TABLET PO ONE (18:00)
[2019-03-08] MEDS: Ipratropium/Albuterol Neb 3 ML IH SCH ×2 (03:54→10:08)
[2019-03-08 04:04] LABS: Basophils % 0.1 %; Eosinophils % 0.1 %; Hemoglobin 10.8 g/dL (12.9-16.9); Immature Granulocytes % 0.4 % (0-4); Red Cell Distribution Width 14.7 % (11.5-14.5)
[2019-03-08 04:05] LABS: Hematocrit 37.5 % (37.5-50.1); Lymphocytes # 0.7 K/mcL (0.6-4.6); Lymphocytes % 6.7 %; Mean Corpuscular HGB Conc 28.8 g/dL (31.6-35.5); Mean Corpuscular Hemoglobin 24.7 pg (28.0-33.3); Mean Corpuscular Volume 85.6 fL (83.0-100.0); Mean Platelet Volume 9.8 fL (9.4-12.4); Monocytes # 0.8 K/mcL (0.0-1.3); Monocytes % 7.2 %; Platelet Count 198 K/mcL (140-400); Red Blood Count 4.38 M/mcL (4.19-5.50); Segmented Neutrophils % 85.5 %; White Blood Count 10.7 K/mcL (4.3-11.1)
[2019-03-08 04:19] LABS: Prothrombin Time 22.5 Seconds (9.4-12.1)
[2019-03-08 04:20] LABS: Neutrophils # 9.2 K/mcL (1.6-8.9)
[2019-03-08 04:35] LABS: BUN/Creatinine Ratio 40 (6-26); Blood Urea Nitrogen 25 mg/dL (6-20); Calcium 8.6 mg/dL (8.6-10.3); Carbon Dioxide 44 mEq/L (23-29); Chloride 93 mEq/L (98-107); Glucose 160 mg/dL (70-105); Osmolality,Calculated 300 (280-300); Potassium 3.5 mEq/L (3.5-5.1); Sodium 141 mEq/L (136-145); eGFR For African Americans > 60 (> 60); eGFR For Non-African Americans > 60 (> 60)
[2019-03-08 05:18] LABS: Anisocytosis 1+ (Not Present)
[2019-03-08 05:19] LABS: Platelet Estimate Normal (Normal)
[2019-03-08] MEDS: Furosemide 40 MG/4 ML VIAL IVP SCH (07:55)
[2019-03-08] MEDS: rOPINIRole 0.25 MG TABLET PO SCH (07:56)
[2019-03-08] MEDS: Chlorhexidine Rinse 15 ML MOUTHWASH MM SCH (07:56)
[2019-03-08] MEDS: predniSONE 20 MG TABLET PO SCH (07:56)
[2019-03-08] MEDS: *HR* Amiodarone 200 MG TABLET PO SCH (07:56)
[2019-03-08] MEDS: Budesonide/Formoterol 80/4.5 1 PUFF INH IH SCH (10:08)
[2019-03-08 11:16] VITALS: BP 126/64
--- NOTE | 2019-03-08 12:59 | Internal Med Progress Note ---
<Carlota Mcgrath - Last Filed: 03/08/19 13:51> Hospitalist Progress Note - Encounter Date of Encounter: 03/08/19 - Exam Vitals: Temp Pulse Resp BP Pulse Ox 98.9 F 64 18 126/64 94 03/08/19 11:14 03/08/19 11:14 03/08/19 11:14 03/08/19 11:14 03/08/19 11:14 - Assessment and Plan (1) GAVIN (obstructive sleep apnea) Current Visit: Yes Status: Chronic (2) Acute on chronic respiratory failure with hypercapnia Current Visit: Yes Status: Acute (3) Diabetes Current Visit: Yes Status: Chronic (4) Morbid obesity with BMI of 50.0-59.9, adult Current Visit: No Status: Chronic (5) COPD (chronic obstructive pulmonary disease) Current Visit: Yes Status: Acute (6) Paroxysmal atrial fibrillation Current Visit: Yes Status: Chronic (7) HTN (hypertension) Current Visit: Yes Status: Chronic - Time Spent with Patient Total time spent is greater than 50% in coordination of care (as documented) at patient's floor/unit and/or counseling patient: Internal Medicine: Result - Labs CBC & Chem 7: 03/08/19 03:50 03/08/19 03:50 Labs: Short CBC 03/08/19 Range/Units 03:50 WBC 10.7 (4.3-11.1) K/mcL Hgb 10.8 L (12.9-16.9) g/dL Hct 37.5 (37.5-50.1) % Plt Count 198 (140-400) K/mcL Neutrophils # 9.2 H (1.6-8.9) K/mcL BMP 03/08/19 03:50 Sodium 141 Potassium 3.5 Chloride 93 L Carbon Dioxide 44 H* BUN 25 H Creatinine 0.62 L Glucose 160 H Calcium 8.6 - ABG Interpretation ABG results: ABG ABG pH 7.49 pH Units (7.32-7.45) H 03/06/19 05:03 ABG pCO2 67 mmHg (35-45) H 03/06/19 05:03 ABG pO2 85 mmHg (85-104) 03/06/19 05:03 ABG O2 Saturation 97 % (95-98) 03/06/19 05:03 PT/INR, D-dimer PT 22.5 Seconds (9.4-12.1) H 03/08/19 03:50 Consult Discharge Plan - Plan Instructions: Atrial Fibrillation (DC), Acute Respiratory Distress Syndrome (DC), Chronic Obstructive Pulmonary Disease (DC), BiPAP (GEN) Referrals: Jay Cool MD [Non-Partnered Physician] - 03/11/19 11:15 am Henrry Krishnan MD [Non-Partnered Physician] - Jas Frey MD [Partnered Physician] - 03/14/19 1:30 pm Prescriptions: predniSONE [PredniSONE] 10 mg PO DAILY 12 Days #30 tablet - Attending Attestation I examined this patient and my medical decision-making was reviewed with the [facility] [place] Physician Dr Reyes. I agree with the documented findings, disposition and treatment plan as described except to the extent set forth below. Mr Rubalcava is admitted for acute on chronic resp failure and GAVIN . He is returned to baseline resp status and will dc to snf with outpt fu He is awake, lying flat in bed.toelrating his nightly bipap. not sob, no le edema, eager for dc. snf bed available today. reviewed dc plan and no questions gen- alert, awake,appears stated age, obese cv- reg rate and rhythm, normal s1,s2 lungs- ctabl, no wheezing, rhonchi or crackles, normal resp effort on o2 nc neuro- AAOx3 Acute on Chronic hypoxic and hypercarbic Resp failure resolved- 4L cont while awake, bipap when sleeping, out pt ENT for outpt trach discussion, fu with pulm, steroid taper pAfib- remains NSR, INR now at goal, cont warfarin home dose INR check in 2 days Acute on chronic HFpEF, resolved- resume home lasix PO dosing FUrther diagnoses and plan as noted by resident <Jasen Reyes - Last Filed: 03/08/19 14:44> Hospitalist Progress Note - Encounter Date of Encounter: 03/08/19 Time of Encounter: 09:30 - Subjective Interval History: Pt is doing well, feeling ready to get to SNF. he reports desires to get up and walk around, denies any new complaints. Denies chest pain, dyspnea, nausea, vomiting, diarrhea, constipation, melena, new numbness or weakness, no urinary complaints. - Exam Vitals: Temp Pulse Resp BP Pulse Ox 98.9 F 64 18 126/64 94 03/08/19 11:14 03/08/19 11:14 03/08/19 11:14 03/08/19 11:14 03/08/19 11:14 Exam: Gen: Awake and alert, no acute distress, obese, resting comfortably in bed Head: Normocephalic, atraumatic Eyes: EOMI, no scleral icterus ENT: Mucous membranes moist, no oropharyngeal erythema CV: S1-S2 present, regular at approximately 80, no murmurs rubs or gallops Pulm: CTAB, not tachypneic, no respiratory distress, no increased work of breathing, NC in place at 4 L Abd: Soft, nontender to palpation, obese, nondistended, no rebound or guarding. EXT: Grossly intact motor strength in all 4 extremities, no lower extremity edema, no distal cyanosis or pallor Skin: Warm, dry, intact, Neuro: Cranial nerves II-XII grossly intact, no focal nurologic deficits Psych: normal mood and affect, Answers questions with intact judgement, approp riate insight, and linear thought - Assessment and Plan (1) Acute respiratory failure with hypercapnia Current Visit: Yes Status: Acute Assessment and Plan: s/p acute respiratory failure requiring intubation, subsequently bipap dependent, currently back to baseline. * d/c'd to SNF, waiting on placement * continue 4LNC while awake and Bipap while asleep * continue to monitor vital signs * AM bmp and cbc if still awaiting placement tomorrow (2) Obesity hypoventilation syndrome Current Visit: Yes Status: Chronic Assessment and Plan: see above (3) COPD (chronic obstructive pulmonary disease) Current Visit: Yes Status: Chronic Assessment and Plan: Pt currently tapering steroids * continue steroid taper * continue nebs * continue O2 by NC (4) GAVIN (obstructive sleep apnea) Current Visit: Yes Status: Chronic Assessment and Plan: Sleeping BiPap remains ABSOLUTE NECESSITY (5) Heart failure with preserved ejection fraction Current Visit: No Status: Chronic (6) A-fib Current Visit: No Status: Chronic Assessment and Plan: Exam have had apparently regular HR consistently * pt taking warfarin with therapeutic INR at 2.0 (7) PAF (paroxysmal atrial fibrillation) Current Visit: No Status: Chronic DVT Prophylaxis: on warfarin at therapeutic INR of 2.0 - Time Spent with Patient Total time spent is greater than 50% in coordination of care (as documented) at patient's floor/unit and/or counseling patient: Internal Medicine: Result - Labs CBC & Chem 7: 03/08/19 03:50 03/08/19 03:50 Labs: Short CBC 03/08/19 Range/Units 03:50 WBC 10.7 (4.3-11.1) K/mcL Hgb 10.8 L (12.9-16.9) g/dL Hct 37.5 (37.5-50.1) % Plt Count 198 (140-400) K/mcL Neutrophils # 9.2 H (1.6-8.9) K/mcL BMP 03/08/19 03:50 Sodium 141 Potassium 3.5 Chloride 93 L Carbon Dioxide 44 H* BUN 25 H Creatinine 0.62 L Glucose 160 H Calcium 8.6 - ABG Interpretation ABG results: ABG ABG pH 7.49 pH Units (7.32-7.45) H 03/06/19 05:03 ABG pCO2 67 mmHg (35-45) H 03/06/19 05:03 ABG pO2 85 mmHg (85-104) 03/06/19 05:03 ABG O2 Saturation 97 % (95-98) 03/06/19 05:03 PT/INR, D-dimer PT 22.5 Seconds (9.4-12.1) H 03/08/19 03:50 ____ <Carlota Mcgrath - Last Filed: 03/08/19 13:51> (3) Diabetes Qualifiers: Diabetes mellitus type: type 2 Diabetes mellitus half-way insulin use: 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 [employer]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 Diabetes mellitus complication status: with hyperglycemia Qualified Code(s): E11.65 - Type 2 diabetes mellitus with hyperglycemia; Z79.4 - FPC (current) use of insulin (5) COPD (chronic obstructive pulmonary disease) Qualifiers: COPD type: COPD with acute exacerbation Qualified Code(s): J44.1 - Chronic obstructive pulmonary disease with (acute) exacerbation (7) HTN (hypertension) Qualifiers: Hypertension type: essential hypertension Qualified Code(s): I10 - Essential (primary) hypertension <Jasen Reyes S - Last Filed: 03/08/19 14:44> (3) COPD (chronic obstructive pulmonary disease) Qualifiers: COPD type: unspecified COPD Qualified Code(s): J44.9 - Chronic obstructive pulmonary disease, unspecified (5) Heart failure with preserved ejection fraction Qualifiers: Qualified Code(s): I50.30 - Unspecified diastolic (congestive) heart failure (6) A-fib Qualifiers: Atrial fibrillation type: chronic Qualified Code(s): I48.2 - Chronic atrial fibrillation
[2019-03-08] MEDS ORDERED: *HR* Warfarin 3 MG TABLET PO ONE (18:00)
== END 2019-03-08 14:26 | DRG 208 ==
LOC: SUATTDRO 20:02 → ICNU 20:02 → 2NNU 03-03 11:01
PROVIDERS: ADMIT Internal Medicine Nephrology; ATTEND Internal Medicine

== ENCOUNTER 2019-03-26 09:36 | Inpatient (IN) ==
[2019-03-26 10:14] LABS: Basophils % 0.2 %; Lymphocytes % 13.2 %; Monocytes % 8.7 %; Red Cell Distribution Width 15.9 % (11.5-14.5)
[2019-03-26 10:16] LABS: Eosinophils # 0.2 K/mcL (0.0-0.6); Eosinophils % 1.9 %; Hematocrit 37.7 % (37.5-50.1); Hemoglobin 10.8 g/dL (12.9-16.9); Immature Granulocytes % 0.2 % (0-4); Lymphocytes # 1.2 K/mcL (0.6-4.6); Mean Corpuscular HGB Conc 28.6 g/dL (31.6-35.5); Mean Corpuscular Hemoglobin 25.7 pg (28.0-33.3); Mean Corpuscular Volume 89.8 fL (83.0-100.0); Mean Platelet Volume 9.4 fL (9.4-12.4); Monocytes # 0.8 K/mcL (0.0-1.3); Neutrophils # 6.9 K/mcL (1.6-8.9); Platelet Count 148 K/mcL (140-400); Segmented Neutrophils % 75.8 %; White Blood Count 9.1 K/mcL (4.3-11.1)
[2019-03-26] MEDS ORDERED: Furosemide 40 MG/4 ML VIAL IVP ONE (10:22)
[2019-03-26 10:35] LABS: Alanine Aminotransferase 10 Units/L (7-52); Albumin 3.5 g/dL (3.5-5.7); Albumin/Globulin Ratio 1.3 (1.1-2.2); Alkaline Phosphatase 88 Units/L (34-104); Aspartate Amino Transferase 12 Units/L (13-39); BUN/Creatinine Ratio 23 (6-26); Bilirubin,Total 0.5 mg/dL (0.3-1.0); Blood Urea Nitrogen 18 mg/dL (6-20); Carbon Dioxide 39 mEq/L (23-29); Chloride 94 mEq/L (98-107); Globulin 2.8 g/dL (2.4-3.5); Glucose 135 mg/dL (70-105); INR 4.5; Osmolality,Calculated 296 (280-300); Prothrombin Time 51.1 Seconds (9.4-12.1); Sodium 141 mEq/L (136-145); Total Protein 6.3 g/dL (6.4-8.9); Troponin I < 0.03 ng/mL (< 0.04); eGFR For African Americans > 60 (> 60); eGFR For Non-African Americans > 60 (> 60)
[2019-03-26 10:40] LABS: Anisocytosis 1+ (Not Present)
[2019-03-26 10:41] LABS: Large Platelets Present (Not Present); Platelet Estimate Normal (Normal)
[2019-03-26] MEDS ORDERED: Naloxone 0.4 MG/ML INJ IVP PRN (14:18)
[2019-03-26] MEDS ORDERED: *HR* OxyCODONE/APAP 5/325 TABLET PO ONE (17:16)
[2019-03-26] MEDS ORDERED: Warfarin perPT PO PRN (18:00)
[2019-03-26] MEDS: Ipratropium/Albuterol Neb 3 ML IH SCH ×2 (18:15→22:38)
[2019-03-26] MEDS ORDERED: Furosemide 40 MG TABLET PO SCH (21:00)
[2019-03-26] MEDS ORDERED: Budesonide/Formoterol 80/4.5 1 PUFF INH IH SCH (21:00)
[2019-03-27] MEDS: Ipratropium/Albuterol Neb 3 ML IH SCH ×4 (04:07→22:04)
[2019-03-27 05:35] LABS: INR 3.5; Prothrombin Time 39.6 Seconds (9.4-12.1)
[2019-03-27 05:49] LABS: BUN/Creatinine Ratio 18 (6-26); Blood Urea Nitrogen 15 mg/dL (6-20); Carbon Dioxide > 45 mEq/L (23-29); Chloride 93 mEq/L (98-107); Potassium 4.1 mEq/L (3.5-5.1); Sodium 143 mEq/L (136-145); eGFR For African Americans > 60 (> 60)
[2019-03-27 05:50] LABS: Calcium 8.6 mg/dL (8.6-10.3); Glucose 139 mg/dL (70-105); Osmolality,Calculated 299 (280-300); eGFR For Non-African Americans > 60 (> 60)
[2019-03-27] MEDS: Multivit/Ca/Min/Fe/FA 1 TAB TABLET PO SCH (07:58)
[2019-03-27] MEDS: Fluticasone Propionate Nasal 50 MCG/SPRAY BOTTLE NS SCH (07:58)
[2019-03-27] MEDS ORDERED: Furosemide 40 MG TABLET PO SCH (08:00)
[2019-03-27] MEDS ORDERED: *HR* Amiodarone 200 MG TABLET PO SCH (09:00)
[2019-03-27] MEDS: Budesonide/Formoterol 160/4.5 1 PUFF INH IH SCH ×2 (09:50→19:57)
[2019-03-27] MEDS ORDERED: Warfarin perPT PO PRN (11:00)
[2019-03-27] MEDS ORDERED: rOPINIRole 0.25 MG TABLET PO ONE (12:31)
[2019-03-27] MEDS ORDERED: *HR* Warfarin 3 MG TABLET PO ONE (18:00)
[2019-03-27] MEDS ORDERED: Perflutren Lipid Microsphere 1.3 ML in 0.9 % Sodium Chloride 8.7 ML IVP ONE (18:39)
[2019-03-27] MEDS ORDERED: Perflutren Lipid Microsphere 2 ML VIAL ONE (19:17)
[2019-03-27] MEDS ORDERED: rOPINIRole 0.25 MG TABLET PO SCH (21:00)
[2019-03-27] MEDS: Simethicone 80 MG TAB.CHEW PO PRN (22:32)
[2019-03-28] MEDS: Ipratropium/Albuterol Neb 3 ML IH SCH ×4 (03:34→22:57)
[2019-03-28 04:46] LABS: Immature Granulocytes % 0.4 % (0-4)
[2019-03-28 04:48] LABS: Basophils % 0.1 %; Eosinophils # 0.1 K/mcL (0.0-0.6); Eosinophils % 1.5 %; Hemoglobin 9.8 g/dL (12.9-16.9); Lymphocytes # 0.9 K/mcL (0.6-4.6); Lymphocytes % 9.8 %; Mean Corpuscular Hemoglobin 25.4 pg (28.0-33.3); Mean Corpuscular Volume 90.7 fL (83.0-100.0); Mean Platelet Volume 9.2 fL (9.4-12.4); Monocytes # 0.7 K/mcL (0.0-1.3); Monocytes % 7.7 %; Neutrophils # 7.5 K/mcL (1.6-8.9); Platelet Count 150 K/mcL (140-400); Red Blood Count 3.86 M/mcL (4.19-5.50); Segmented Neutrophils % 80.5 %; White Blood Count 9.3 K/mcL (4.3-11.1)
[2019-03-28 04:54] LABS: INR 2.8; Prothrombin Time 32.4 Seconds (9.4-12.1)
[2019-03-28 05:17] LABS: BUN/Creatinine Ratio 22 (6-26); Blood Urea Nitrogen 14 mg/dL (6-20); Calcium 8.7 mg/dL (8.6-10.3); Carbon Dioxide > 45 mEq/L (23-29); Chloride 92 mEq/L (98-107); Glucose 139 mg/dL (70-105); Osmolality,Calculated 297 (280-300); Potassium 4.2 mEq/L (3.5-5.1); Sodium 142 mEq/L (136-145); eGFR For African Americans > 60 (> 60); eGFR For Non-African Americans > 60 (> 60)
[2019-03-28 05:29] LABS: Hypochromasia Present (Not Present); Platelet Estimate Normal (Normal)
[2019-03-28 06:43] LABS: Bilirubin,Urine Small (Negative); Blood,Urine Large (Negative); Color,Urine Dark Yellow (Yellow); Glucose,Urine (UA) Normal (Normal); Ketones,Urine Negative (Negative); Leukocyte Esterase,Urine Moderate (Negative); Nitrite,Urine Positive (Negative); PH,Urine 5.5 pH Units (5.0-8.0); Protein,Urine 100 mg/dL (Neg-Trace); Specific Gravity,Urine 1.022 (1.010-1.025); Urobilinogen,Urine Normal (Normal)
[2019-03-28 06:45] LABS: Clarity,Urine Slightly Cloudy (Clear)
[2019-03-28 06:55] LABS: RBC,Urine 50-100 per hpf (0-3)
[2019-03-28 06:56] LABS: Bacteria,Urine Many per hpf (None-Few); Squamous Epithelial Cell,Urine Few per lpf (None-Few); WBC,Urine 15-30 per hpf (0-3)
[2019-03-28] MEDS ORDERED: Furosemide 40 MG/4 ML VIAL IVP SCH ×2 (09:00→21:00)
[2019-03-28] MEDS: Simethicone 80 MG TAB.CHEW PO PRN (09:12)
[2019-03-28] MEDS: Multivit/Ca/Min/Fe/FA 1 TAB TABLET PO SCH (09:12)
[2019-03-28] MEDS: Fluticasone Propionate Nasal 50 MCG/SPRAY BOTTLE NS SCH (09:13)
[2019-03-28] MEDS: Budesonide/Formoterol 160/4.5 1 PUFF INH IH SCH ×2 (10:50→22:57)
[2019-03-28] MEDS ORDERED: rOPINIRole 0.25 MG TABLET PO ONE (11:59)
[2019-03-28] MEDS: *HR* Amiodarone 200 MG TABLET PO SCH (12:50)
[2019-03-28] MEDS: Furosemide 40 MG/4 ML VIAL IVP SCH (17:39)
[2019-03-28] MEDS ORDERED: *HR* Warfarin 5 MG TABLET PO ONE (18:00)
[2019-03-28] MEDS: rOPINIRole 0.25 MG TABLET PO SCH (21:26)
[2019-03-29] MEDS: Levalbuterol Neb 1.25 MG/3 ML IH SCH ×4 (03:25→22:31)
[2019-03-29 04:12] LABS: Basophils % 0.1 %; Hemoglobin 10.2 g/dL (12.9-16.9)
[2019-03-29 04:14] LABS: Eosinophils # 0.1 K/mcL (0.0-0.6); Eosinophils % 0.7 %; Hematocrit 36.8 % (37.5-50.1); Immature Granulocytes % 0.4 % (0-4); Lymphocytes # 0.8 K/mcL (0.6-4.6); Lymphocytes % 6.1 %; Mean Corpuscular HGB Conc 27.7 g/dL (31.6-35.5); Mean Corpuscular Hemoglobin 25.2 pg (28.0-33.3); Mean Corpuscular Volume 91.1 fL (83.0-100.0); Mean Platelet Volume 9.6 fL (9.4-12.4); Monocytes # 1.1 K/mcL (0.0-1.3); Monocytes % 8.5 %; Neutrophils # 11.3 K/mcL (1.6-8.9); Platelet Count 179 K/mcL (140-400); Red Blood Count 4.04 M/mcL (4.19-5.50); Red Cell Distribution Width 15.9 % (11.5-14.5); Segmented Neutrophils % 84.2 %; White Blood Count 13.4 K/mcL (4.3-11.1)
[2019-03-29 04:18] LABS: INR 2.2; Prothrombin Time 24.5 Seconds (9.4-12.1)
[2019-03-29 04:36] LABS: BUN/Creatinine Ratio 27 (6-26); Blood Urea Nitrogen 18 mg/dL (6-20); Carbon Dioxide 43 mEq/L (23-29); Chloride 92 mEq/L (98-107); Glucose 134 mg/dL (70-105); Osmolality,Calculated 296 (280-300); Potassium 4.4 mEq/L (3.5-5.1); Sodium 141 mEq/L (136-145); eGFR For African Americans > 60 (> 60); eGFR For Non-African Americans > 60 (> 60)
[2019-03-29 05:04] LABS: Hypochromasia Present (Not Present); Platelet Estimate Normal (Normal)
[2019-03-29] MEDS ORDERED: 0.9 % Sodium Chloride 500 ML IVC ONE (07:42)
[2019-03-29] MEDS ORDERED: Lidocaine Viscous Oral Soln 15 ML SOLUTION MM PRN (07:42)
[2019-03-29] MEDS ORDERED: *HR* Midazolam HCl 5 MG/5 ML VIAL IVP PRN (07:42)
[2019-03-29] MEDS: *HR* FentaNYL (PF) 100 MCG/2 ML VIAL IVP PRN ×2 (08:45→08:59)
[2019-03-29] MEDS: Budesonide/Formoterol 160/4.5 1 PUFF INH IH SCH ×2 (10:23→22:31)
[2019-03-29] MEDS: *HR* Amiodarone 200 MG TABLET PO SCH (10:28)
[2019-03-29] MEDS: Multivit/Ca/Min/Fe/FA 1 TAB TABLET PO SCH (10:28)
[2019-03-29] MEDS: rOPINIRole 0.25 MG TABLET PO SCH ×2 (10:28→20:28)
[2019-03-29] MEDS: Fluticasone Propionate Nasal 50 MCG/SPRAY BOTTLE NS SCH (10:29)
[2019-03-29] MEDS: Furosemide 40 MG/4 ML VIAL IVP SCH ×2 (10:29→17:11)
[2019-03-29 15:56] LABS: ABG Base Excess 19 mEq/L (-2 to 3); ABG HCO3 51 mEq/L (21-27); ABG Oxygen Saturation 86 % (95-98); ABG PCO2 110 mmHg (35-45); ABG PH 7.28 pH Units (7.32-7.45); ABG PO2 64 mmHg (85-104); ABG TCO2 > 50 mEq/L (20-26)
[2019-03-29] MEDS ORDERED: *HR* Warfarin 5 MG TABLET PO ONE (18:00)
[2019-03-29 18:43] LABS: ABG Base Excess 20 mEq/L (-2 to 3); ABG HCO3 51 mEq/L (21-27); ABG Oxygen Saturation 90 % (95-98); ABG PCO2 97 mmHg (35-45); ABG PH 7.33 pH Units (7.32-7.45); ABG PO2 68 mmHg (85-104); ABG TCO2 > 50 mEq/L (20-26); Blood Gas VT 16 cc
[2019-03-30] MEDS: Levalbuterol Neb 1.25 MG/3 ML IH SCH ×4 (03:25→22:27)
[2019-03-30 03:30] LABS: Basophils % 0.1 %
[2019-03-30 03:32] LABS: Hematocrit 35.4 % (37.5-50.1); Immature Granulocytes % 1.6 % (0-4); Lymphocytes # 0.6 K/mcL (0.6-4.6); Lymphocytes % 3.7 %; Mean Corpuscular HGB Conc 28.2 g/dL (31.6-35.5); Mean Corpuscular Hemoglobin 25.3 pg (28.0-33.3); Mean Corpuscular Volume 89.6 fL (83.0-100.0); Mean Platelet Volume 9.6 fL (9.4-12.4); Monocytes # 1.6 K/mcL (0.0-1.3); Monocytes % 9.2 %; Neutrophils # 14.8 K/mcL (1.6-8.9); Nucleated Red Blood Cells 0.1 /100 WBC (0); Platelet Count 177 K/mcL (140-400); Red Blood Count 3.95 M/mcL (4.19-5.50); Segmented Neutrophils % 85.4 %; White Blood Count 17.3 K/mcL (4.3-11.1)
[2019-03-30 03:39] LABS: INR 2.9; Prothrombin Time 32.8 Seconds (9.4-12.1)
[2019-03-30 04:00] LABS: BUN/Creatinine Ratio 36 (6-26); Blood Urea Nitrogen 25 mg/dL (6-20); Calcium 9.1 mg/dL (8.6-10.3); Carbon Dioxide 44 mEq/L (23-29); Chloride 91 mEq/L (98-107); Glucose 151 mg/dL (70-105); Osmolality,Calculated 297 (280-300); Potassium 4.6 mEq/L (3.5-5.1); Sodium 140 mEq/L (136-145); eGFR For African Americans > 60 (> 60); eGFR For Non-African Americans > 60 (> 60)
[2019-03-30 04:27] LABS: Hypochromasia Present (Not Present); Platelet Estimate Normal (Normal)
[2019-03-30 04:28] LABS: Anisocytosis 1+ (Not Present)
[2019-03-30 04:29] LABS: Stomatocytes 1+ (Not Present)
[2019-03-30] MEDS: Furosemide 40 MG/4 ML VIAL IVP SCH ×2 (07:45→17:35)
[2019-03-30] MEDS: *HR* Amiodarone 200 MG TABLET PO SCH (07:45)
[2019-03-30] MEDS: Multivit/Ca/Min/Fe/FA 1 TAB TABLET PO SCH (07:45)
[2019-03-30] MEDS: rOPINIRole 0.25 MG TABLET PO SCH ×2 (07:45→20:20)
[2019-03-30] MEDS: Fluticasone Propionate Nasal 50 MCG/SPRAY BOTTLE NS SCH (07:46)
[2019-03-30 08:21] LABS: ABG Base Excess 20 mEq/L (-2 to 3); ABG HCO3 51 mEq/L (21-27); ABG Oxygen Saturation 94 % (95-98); ABG PCO2 101 mmHg (35-45); ABG PH 7.31 pH Units (7.32-7.45); ABG PO2 84 mmHg (85-104); ABG TCO2 > 50 mEq/L (20-26); Blood Gas Pressure Support 8 cm H2O
[2019-03-30] MEDS: Budesonide/Formoterol 160/4.5 1 PUFF INH IH SCH ×2 (10:46→22:27)
[2019-03-30] MEDS: Diltiazem CD (24hr) 180 MG CAPSULE PO SCH (13:41)
[2019-03-30 15:14] LABS: Bilirubin,Urine Small (Negative); Blood,Urine Small (Negative); Clarity,Urine Cloudy (Clear); Color,Urine Dark Yellow (Yellow); Glucose,Urine (UA) Normal (Normal); Ketones,Urine Negative (Negative); Leukocyte Esterase,Urine Moderate (Negative); Nitrite,Urine Positive (Negative); Protein,Urine 30 mg/dL (Neg-Trace); Specific Gravity,Urine 1.023 (1.010-1.025)
[2019-03-30 15:27] LABS: ABG Base Excess 19 mEq/L (-2 to 3); ABG HCO3 50 mEq/L (21-27); ABG Oxygen Saturation 97 % (95-98); ABG PCO2 99 mmHg (35-45); ABG PH 7.31 pH Units (7.32-7.45); ABG PO2 104 mmHg (85-104); ABG TCO2 > 50 mEq/L (20-26); Blood Gas Pressure Support 8 cm H2O
[2019-03-30 15:42] LABS: Squamous Epithelial Cell,Urine Few per lpf (None-Few); WBC,Urine 30-50 per hpf (0-3)
[2019-03-30 15:43] LABS: Bacteria,Urine Many per hpf (None-Few); Hyaline Casts,Urine Moderate per lpf (None-Few)
[2019-03-30] MEDS ORDERED: levoFLOXacin 750 MG/150 ML 750 MG/150 ML BAG IVPB SCH (16:00)
[2019-03-30] MEDS ORDERED: *HR* Warfarin 2.5 MG TABLET PO ONE (18:00)
[2019-03-30] MEDS: Simethicone 80 MG TAB.CHEW PO PRN (20:20)
[2019-03-31 01:20] LABS: Basophils % 0.1 %; Eosinophils % 0.4 %; Immature Granulocytes % 0.8 % (0-4)
[2019-03-31 01:21] LABS: Eosinophils # 0.1 K/mcL (0.0-0.6); Hematocrit 32.7 % (37.5-50.1); Hemoglobin 9.1 g/dL (12.9-16.9); Lymphocytes # 0.7 K/mcL (0.6-4.6); Lymphocytes % 5.2 %; Mean Corpuscular HGB Conc 27.8 g/dL (31.6-35.5); Mean Corpuscular Hemoglobin 25.2 pg (28.0-33.3); Mean Corpuscular Volume 90.6 fL (83.0-100.0); Mean Platelet Volume 10.2 fL (9.4-12.4); Monocytes # 1.1 K/mcL (0.0-1.3); Monocytes % 7.8 %; Neutrophils # 11.6 K/mcL (1.6-8.9); Nucleated Red Blood Cells 0.1 /100 WBC (0); Platelet Count 187 K/mcL (140-400); Red Blood Count 3.61 M/mcL (4.19-5.50); Red Cell Distribution Width 15.8 % (11.5-14.5); Segmented Neutrophils % 85.7 %; White Blood Count 13.5 K/mcL (4.3-11.1)
[2019-03-31 01:27] LABS: Prothrombin Time 33.8 Seconds (9.4-12.1)
[2019-03-31 01:42] LABS: BUN/Creatinine Ratio 51 (6-26); Blood Urea Nitrogen 33 mg/dL (6-20); Carbon Dioxide 45 mEq/L (23-29); Chloride 89 mEq/L (98-107); Glucose 104 mg/dL (70-105); Osmolality,Calculated 292 (280-300); Potassium 4.2 mEq/L (3.5-5.1); Sodium 137 mEq/L (136-145); eGFR For African Americans > 60 (> 60); eGFR For Non-African Americans > 60 (> 60)
[2019-03-31 01:48] LABS: Anisocytosis 1+ (Not Present); Hypochromasia Present (Not Present); Platelet Estimate Normal (Normal)
[2019-03-31] MEDS: Levalbuterol Neb 1.25 MG/3 ML IH SCH ×4 (04:36→22:28)
[2019-03-31] MEDS: Doxycycline 100 MG in 0.9 % Sodium Chloride Mini Bag 100 ML IVPB SCH ×2 (05:19→18:16)
[2019-03-31] MEDS: Budesonide/Formoterol 160/4.5 1 PUFF INH IH SCH ×2 (09:25→22:28)
[2019-03-31 09:31] LABS: ABG Base Excess 18 mEq/L (-2 to 3); ABG HCO3 49 mEq/L (21-27); ABG Oxygen Saturation 92 % (95-98); ABG PCO2 98 mmHg (35-45); ABG PO2 75 mmHg (85-104); ABG TCO2 > 50 mEq/L (20-26)
[2019-03-31] MEDS: rOPINIRole 0.25 MG TABLET PO SCH ×2 (10:05→20:30)
[2019-03-31] MEDS: Multivit/Ca/Min/Fe/FA 1 TAB TABLET PO SCH (10:06)
[2019-03-31] MEDS: *HR* Amiodarone 200 MG TABLET PO SCH (10:06)
[2019-03-31] MEDS: Diltiazem CD (24hr) 180 MG CAPSULE PO SCH (10:06)
[2019-03-31] MEDS: Furosemide 40 MG/4 ML VIAL IVP SCH ×3 (10:07→19:27)
[2019-03-31] MEDS: Fluticasone Propionate Nasal 50 MCG/SPRAY BOTTLE NS SCH (12:42)
[2019-03-31] MEDS ORDERED: cefTRIAXone 1,000 MG in Water for inj. (sterile) 10 ML IVP ONE (13:31)
[2019-03-31] MEDS ORDERED: *HR* Warfarin 2.5 MG TABLET PO ONE (18:00)
[2019-03-31 18:59] LABS: ABG Base Excess 21 mEq/L (-2 to 3); ABG HCO3 52 mEq/L (21-27); ABG Oxygen Saturation 89 % (95-98); ABG PCO2 98 mmHg (35-45); ABG PH 7.33 pH Units (7.32-7.45); ABG PO2 65 mmHg (85-104); ABG TCO2 > 50 mEq/L (20-26)
[2019-04-01] MEDS: Levalbuterol Neb 1.25 MG/3 ML IH SCH ×4 (04:43→22:17)
[2019-04-01 05:14] LABS: Prothrombin Time 34.6 Seconds (9.4-12.1)
[2019-04-01] MEDS: Doxycycline 100 MG in 0.9 % Sodium Chloride Mini Bag 100 ML IVPB SCH ×2 (05:15→17:54)
[2019-04-01 05:19] LABS: Basophils % 0.1 %; Eosinophils # 0.1 K/mcL (0.0-0.6); Eosinophils % 0.7 %; Hematocrit 33.6 % (37.5-50.1); Hemoglobin 9.4 g/dL (12.9-16.9); Immature Granulocytes % 1.4 % (0-4); Lymphocytes # 0.4 K/mcL (0.6-4.6); Lymphocytes % 5.2 %; Mean Corpuscular Hemoglobin 25.4 pg (28.0-33.3); Mean Corpuscular Volume 90.8 fL (83.0-100.0); Mean Platelet Volume 9.7 fL (9.4-12.4); Monocytes # 0.7 K/mcL (0.0-1.3); Monocytes % 9.5 %; Neutrophils # 6.4 K/mcL (1.6-8.9); Nucleated Red Blood Cells 0.5 /100 WBC (0); Platelet Count 196 K/mcL (140-400); Segmented Neutrophils % 83.1 %; White Blood Count 7.7 K/mcL (4.3-11.1)
[2019-04-01 05:27] LABS: BUN/Creatinine Ratio 42 (6-26); Blood Urea Nitrogen 28 mg/dL (6-20); Carbon Dioxide > 45 mEq/L (23-29); Chloride 90 mEq/L (98-107); Glucose 104 mg/dL (70-105); Osmolality,Calculated 292 (280-300); Potassium 4.1 mEq/L (3.5-5.1); Sodium 138 mEq/L (136-145); eGFR For African Americans > 60 (> 60); eGFR For Non-African Americans > 60 (> 60)
[2019-04-01 06:02] LABS: Anisocytosis 1+ (Not Present); Hypochromasia Present (Not Present)
[2019-04-01 06:03] LABS: Platelet Estimate Normal (Normal); Polychromasia 1+ (Not Present)
[2019-04-01] MEDS: Multivit/Ca/Min/Fe/FA 1 TAB TABLET PO SCH (08:34)
[2019-04-01] MEDS: *HR* Amiodarone 200 MG TABLET PO SCH (08:34)
[2019-04-01] MEDS: rOPINIRole 0.25 MG TABLET PO SCH ×2 (08:35→20:24)
[2019-04-01] MEDS: Diltiazem CD (24hr) 180 MG CAPSULE PO SCH (08:35)
[2019-04-01] MEDS: Furosemide 40 MG/4 ML VIAL IVP SCH ×2 (08:36→17:55)
[2019-04-01] MEDS: Budesonide/Formoterol 160/4.5 1 PUFF INH IH SCH ×2 (08:52→22:17)
[2019-04-01] MEDS ORDERED: cefTRIAXone 1,000 MG in 0.9 % Sodium Chloride Mini Bag 100 ML IVPB SCH (09:00)
[2019-04-01 09:03] LABS: ABG Base Excess 21 mEq/L (-2 to 3); ABG HCO3 51 mEq/L (21-27); ABG Oxygen Saturation 97 % (95-98); ABG PCO2 94 mmHg (35-45); ABG PH 7.34 pH Units (7.32-7.45); ABG PO2 103 mmHg (85-104); ABG TCO2 > 50 mEq/L (20-26)
[2019-04-01] MEDS: Fluticasone Propionate Nasal 50 MCG/SPRAY BOTTLE NS SCH (12:54)
[2019-04-01] MEDS: cefTRIAXone 1,000 MG in Water for inj. (sterile) 10 ML IVP SCH (12:55)
[2019-04-01] MEDS ORDERED: *HR* Warfarin 2.5 MG TABLET PO ONE (18:00)
[2019-04-01] MEDS: Simethicone 80 MG TAB.CHEW PO PRN (18:05)
[2019-04-02 04:15] LABS: Hematocrit 37.2 % (37.5-50.1); Hemoglobin 10.2 g/dL (12.9-16.9); Mean Corpuscular HGB Conc 27.4 g/dL (31.6-35.5)
[2019-04-02 04:16] LABS: Basophils # 0.1 K/mcL (0.0-0.2); Basophils % 0.8 %; Eosinophils # 0.1 K/mcL (0.0-0.6); Eosinophils % 0.7 %; Immature Granulocytes % 4.1 % (0-4); Lymphocytes # 0.6 K/mcL (0.6-4.6); Lymphocytes % 8.1 %; Mean Corpuscular Hemoglobin 24.6 pg (28.0-33.3); Mean Corpuscular Volume 89.9 fL (83.0-100.0); Monocytes # 0.9 K/mcL (0.0-1.3); Monocytes % 12.9 %; Neutrophils # 5.4 K/mcL (1.6-8.9); Nucleated Red Blood Cells 0.5 /100 WBC (0); Platelet Count 247 K/mcL (140-400); Red Blood Count 4.14 M/mcL (4.19-5.50); Red Cell Distribution Width 16.1 % (11.5-14.5); Segmented Neutrophils % 73.4 %; White Blood Count 7.3 K/mcL (4.3-11.1)
[2019-04-02] MEDS: Levalbuterol Neb 1.25 MG/3 ML IH SCH ×4 (04:16→22:19)
[2019-04-02 04:22] LABS: INR 2.8; Prothrombin Time 32.3 Seconds (9.4-12.1)
[2019-04-02 04:36] LABS: BUN/Creatinine Ratio 37 (6-26); Blood Urea Nitrogen 23 mg/dL (6-20); Calcium 8.9 mg/dL (8.6-10.3); Carbon Dioxide > 45 mEq/L (23-29); Chloride 88 mEq/L (98-107); Glucose 116 mg/dL (70-105); Osmolality,Calculated 297 (280-300); Potassium 3.8 mEq/L (3.5-5.1); Sodium 141 mEq/L (136-145); eGFR For African Americans > 60 (> 60); eGFR For Non-African Americans > 60 (> 60)
[2019-04-02 04:50] LABS: Hypochromasia Present (Not Present)
[2019-04-02 04:51] LABS: Anisocytosis 1+ (Not Present); Platelet Estimate Normal (Normal)
[2019-04-02] MEDS: Doxycycline 100 MG in 0.9 % Sodium Chloride Mini Bag 100 ML IVPB SCH ×2 (05:13→17:23)
[2019-04-02 05:19] LABS: ABG Base Excess 23 mEq/L (-2 to 3); ABG HCO3 55 mEq/L (21-27); ABG Oxygen Saturation 91 % (95-98); ABG PCO2 107 mmHg (35-45); ABG PH 7.31 pH Units (7.32-7.45); ABG PO2 73 mmHg (85-104); ABG TCO2 > 50 mEq/L (20-26); Blood Gas Modality AVAPS; Blood Gas VT 500 cc
[2019-04-02] MEDS: Diltiazem CD (24hr) 180 MG CAPSULE PO SCH (09:06)
[2019-04-02] MEDS: Multivit/Ca/Min/Fe/FA 1 TAB TABLET PO SCH (09:06)
[2019-04-02] MEDS: rOPINIRole 0.25 MG TABLET PO SCH ×2 (09:06→20:44)
[2019-04-02] MEDS: *HR* Amiodarone 200 MG TABLET PO SCH (09:06)
[2019-04-02] MEDS: Furosemide 40 MG/4 ML VIAL IVP SCH ×2 (09:07→17:23)
[2019-04-02] MEDS: Fluticasone Propionate Nasal 50 MCG/SPRAY BOTTLE NS SCH (09:29)
[2019-04-02] MEDS: Budesonide/Formoterol 160/4.5 1 PUFF INH IH SCH ×2 (10:33→22:19)
[2019-04-02] MEDS: cefTRIAXone 1,000 MG in Water for inj. (sterile) 10 ML IVP SCH (15:55)
[2019-04-02 17:54] LABS: Blood Gas VT 500 cc; VBG HCO3 57 mEq/L (21-27); VBG PCO2 97 mmHg (41-51); VBG PH 7.38 pH Units (7.32-7.42); VBG PO2 78 mmHg (25-50)
[2019-04-02] MEDS ORDERED: *HR* Warfarin 2.5 MG TABLET PO ONE (18:00)
[2019-04-03] MEDS: Levalbuterol Neb 1.25 MG/3 ML IH SCH ×4 (03:44→22:00)
[2019-04-03 04:26] LABS: Immature Granulocytes % 2.5 % (0-4); Mean Corpuscular HGB Conc 27.5 g/dL (31.6-35.5); Monocytes % 13.6 %; Nucleated Red Blood Cells 0.4 /100 WBC (0)
[2019-04-03 04:27] LABS: Basophils % 0.5 %; Eosinophils # 0.1 K/mcL (0.0-0.6); Eosinophils % 1.4 %; Hematocrit 34.5 % (37.5-50.1); Hemoglobin 9.5 g/dL (12.9-16.9); Lymphocytes # 0.7 K/mcL (0.6-4.6); Lymphocytes % 9.3 %; Mean Corpuscular Volume 90.8 fL (83.0-100.0); Mean Platelet Volume 9.8 fL (9.4-12.4); Monocytes # 1.1 K/mcL (0.0-1.3); Platelet Count 247 K/mcL (140-400); Red Cell Distribution Width 15.9 % (11.5-14.5); Segmented Neutrophils % 72.7 %; White Blood Count 7.9 K/mcL (4.3-11.1)
[2019-04-03 04:34] LABS: INR 2.8; Prothrombin Time 32.1 Seconds (9.4-12.1)
[2019-04-03 04:41] LABS: BUN/Creatinine Ratio 33 (6-26); Blood Urea Nitrogen 20 mg/dL (6-20); Calcium 8.8 mg/dL (8.6-10.3); Carbon Dioxide > 45 mEq/L (23-29); Chloride 86 mEq/L (98-107); Glucose 115 mg/dL (70-105); Osmolality,Calculated 294 (280-300); Potassium 3.6 mEq/L (3.5-5.1); Sodium 140 mEq/L (136-145); eGFR For African Americans > 60 (> 60); eGFR For Non-African Americans > 60 (> 60)
[2019-04-03 04:45] LABS: Neutrophils # 5.7 K/mcL (1.6-8.9)
[2019-04-03 05:11] LABS: ABG Base Excess 26 mEq/L (-2 to 3); ABG HCO3 58 mEq/L (21-27); ABG Oxygen Saturation 92 % (95-98); ABG PCO2 124 mmHg (35-45); ABG PH 7.28 pH Units (7.32-7.45); ABG PO2 80 mmHg (85-104); ABG TCO2 > 50 mEq/L (20-26); Blood Gas Modality AVAPS; Blood Gas VT 500 cc
[2019-04-03 05:27] LABS: Platelet Estimate Normal (Normal)
[2019-04-03] MEDS: Doxycycline 100 MG in 0.9 % Sodium Chloride Mini Bag 100 ML IVPB SCH ×2 (05:39→18:02)
[2019-04-03] MEDS: *HR* Amiodarone 200 MG TABLET PO SCH (08:04)
[2019-04-03] MEDS: Diltiazem CD (24hr) 180 MG CAPSULE PO SCH (08:04)
[2019-04-03] MEDS: rOPINIRole 0.25 MG TABLET PO SCH ×2 (08:04→19:58)
[2019-04-03] MEDS: Furosemide 40 MG/4 ML VIAL IVP SCH ×2 (08:05→18:02)
[2019-04-03] MEDS: Multivit/Ca/Min/Fe/FA 1 TAB TABLET PO SCH (08:05)
[2019-04-03] MEDS: Budesonide/Formoterol 160/4.5 1 PUFF INH IH SCH ×2 (10:19→22:00)
[2019-04-03] MEDS: Fluticasone Propionate Nasal 50 MCG/SPRAY BOTTLE NS SCH (11:44)
[2019-04-03] MEDS: cefTRIAXone 1,000 MG in Water for inj. (sterile) 10 ML IVP SCH (14:13)
[2019-04-03] MEDS ORDERED: *HR* Warfarin 2.5 MG TABLET PO ONE (18:00)
[2019-04-04 01:24] LABS: BUN/Creatinine Ratio 30 (6-26); Blood Urea Nitrogen 18 mg/dL (6-20); Calcium 8.7 mg/dL (8.6-10.3); Carbon Dioxide > 45 mEq/L (23-29); Chloride 87 mEq/L (98-107); Glucose 108 mg/dL (70-105); INR 2.5; Osmolality,Calculated 296 (280-300); Potassium 3.8 mEq/L (3.5-5.1); Prothrombin Time 28.9 Seconds (9.4-12.1); Sodium 142 mEq/L (136-145); eGFR For African Americans > 60 (> 60); eGFR For Non-African Americans > 60 (> 60)
[2019-04-04] MEDS: Levalbuterol Neb 1.25 MG/3 ML IH SCH ×4 (03:39→22:21)
[2019-04-04 04:58] LABS: ABG Base Excess 27 mEq/L (-2 to 3); ABG HCO3 57 mEq/L (21-27); ABG Oxygen Saturation 96 % (95-98); ABG PCO2 94 mmHg (35-45); ABG PH 7.39 pH Units (7.32-7.45); ABG PO2 89 mmHg (85-104); ABG TCO2 > 50 mEq/L (20-26); Blood Gas Modality AVAPS; Blood Gas VT 500 cc
[2019-04-04] MEDS: Doxycycline 100 MG in 0.9 % Sodium Chloride Mini Bag 100 ML IVPB SCH ×2 (06:32→17:01)
[2019-04-04] MEDS: Furosemide 40 MG/4 ML VIAL IVP SCH ×2 (06:33→17:02)
[2019-04-04] MEDS: Diltiazem CD (24hr) 180 MG CAPSULE PO SCH (08:29)
[2019-04-04] MEDS: Multivit/Ca/Min/Fe/FA 1 TAB TABLET PO SCH (08:29)
[2019-04-04] MEDS: *HR* Amiodarone 200 MG TABLET PO SCH (08:29)
[2019-04-04] MEDS: rOPINIRole 0.25 MG TABLET PO SCH ×2 (08:29→19:52)
[2019-04-04] MEDS: Fluticasone Propionate Nasal 50 MCG/SPRAY BOTTLE NS SCH (08:30)
[2019-04-04] MEDS: Budesonide/Formoterol 160/4.5 1 PUFF INH IH SCH ×2 (10:14→22:21)
[2019-04-04] MEDS: cefTRIAXone 1,000 MG in Water for inj. (sterile) 10 ML IVP SCH (14:39)
[2019-04-04] MEDS ORDERED: *HR* Warfarin 5 MG TABLET PO ONE (18:00)
[2019-04-05 01:50] LABS: INR 1.8
[2019-04-05] MEDS: Levalbuterol Neb 1.25 MG/3 ML IH SCH ×4 (03:55→22:02)
[2019-04-05 07:24] LABS: BUN/Creatinine Ratio 29 (6-26); Blood Urea Nitrogen 18 mg/dL (6-20); Calcium 8.8 mg/dL (8.6-10.3); Carbon Dioxide > 45 mEq/L (23-29); Chloride 87 mEq/L (98-107); Glucose 148 mg/dL (70-105); Osmolality,Calculated 297 (280-300); Potassium 3.7 mEq/L (3.5-5.1); Sodium 141 mEq/L (136-145); eGFR For African Americans > 60 (> 60); eGFR For Non-African Americans > 60 (> 60)
[2019-04-05] MEDS: *HR* Amiodarone 200 MG TABLET PO SCH (09:12)
[2019-04-05] MEDS: rOPINIRole 0.25 MG TABLET PO SCH ×2 (09:12→20:55)
[2019-04-05] MEDS: Diltiazem CD (24hr) 180 MG CAPSULE PO SCH (09:13)
[2019-04-05] MEDS: Furosemide 40 MG/4 ML VIAL IVP SCH ×2 (09:14→18:32)
[2019-04-05] MEDS: Multivit/Ca/Min/Fe/FA 1 TAB TABLET PO SCH (09:14)
[2019-04-05] MEDS: Budesonide/Formoterol 160/4.5 1 PUFF INH IH SCH ×2 (10:17→22:02)
[2019-04-05] MEDS: Fluticasone Propionate Nasal 50 MCG/SPRAY BOTTLE NS SCH (11:10)
[2019-04-05 11:26] LABS: ABG Base Excess 26 mEq/L (-2 to 3); ABG HCO3 58 mEq/L (21-27); ABG Oxygen Saturation 93 % (95-98); ABG PCO2 101 mmHg (35-45); ABG PH 7.37 pH Units (7.32-7.45); ABG PO2 78 mmHg (85-104); ABG TCO2 > 50 mEq/L (20-26); Blood Gas Modality Avaps; Blood Gas VT 500 cc
[2019-04-05] MEDS: Doxycycline 100 MG in 0.9 % Sodium Chloride Mini Bag 100 ML IVPB SCH ×2 (15:36→18:31)
[2019-04-05] MEDS ORDERED: *HR* Warfarin 5 MG TABLET PO ONE (18:00)
[2019-04-06 02:45] LABS: INR 1.8; Prothrombin Time 20.5 Seconds (9.4-12.1)
[2019-04-06 03:03] LABS: BUN/Creatinine Ratio 29 (6-26); Blood Urea Nitrogen 19 mg/dL (6-20); Carbon Dioxide > 45 mEq/L (23-29); Chloride 87 mEq/L (98-107); Glucose 103 mg/dL (70-105); Osmolality,Calculated 301 (280-300); Sodium 144 mEq/L (136-145); eGFR For African Americans > 60 (> 60); eGFR For Non-African Americans > 60 (> 60)
[2019-04-06] MEDS: Levalbuterol Neb 1.25 MG/3 ML IH SCH ×2 (03:58→09:57)
[2019-04-06] MEDS: Doxycycline 100 MG in 0.9 % Sodium Chloride Mini Bag 100 ML IVPB SCH (05:46)
[2019-04-06] MEDS: Furosemide 40 MG/4 ML VIAL IVP SCH (08:42)
[2019-04-06] MEDS: *HR* Amiodarone 200 MG TABLET PO SCH (08:43)
[2019-04-06] MEDS: Multivit/Ca/Min/Fe/FA 1 TAB TABLET PO SCH (08:43)
[2019-04-06] MEDS: rOPINIRole 0.25 MG TABLET PO SCH (08:44)
[2019-04-06] MEDS: Diltiazem CD (24hr) 180 MG CAPSULE PO SCH (08:44)
[2019-04-06] MEDS: Fluticasone Propionate Nasal 50 MCG/SPRAY BOTTLE NS SCH (08:45)
[2019-04-06] MEDS: Budesonide/Formoterol 160/4.5 1 PUFF INH IH SCH (09:57)
[2019-04-06] MEDS ORDERED: FLU Vac QV 19-20 (6Month+)/PF 0.5 ML SYRINGE IM ONE (10:43)
[2019-04-06 11:29] VITALS: BP 101/58
[2019-04-06] MEDS ORDERED: *HR* Warfarin 5 MG TABLET PO ONE (18:00)
== END 2019-04-06 13:48 | DRG 308 ==
LOC: 2ANU 09:36 → EMEROOARM 09:36 → SUATTDRO 13:13 → 2ANU 13:50 → 2NNU 03-29 16:55 → SUATTDRO 03-30 12:13
PROVIDERS: ADMIT Internal Medicine; ATTEND Internal Medicine

== ENCOUNTER 2019-05-07 18:48 | Observation (INO) ==
[2019-05-08] MEDS ORDERED: Naloxone 0.4 MG/ML INJ IVP PRN (00:16)
[2019-05-08 01:33] LABS: Eosinophils % 0.1 %; Hematocrit 35.6 % (37.5-50.1); Hemoglobin 9.7 g/dL (12.9-16.9); Immature Granulocytes % 0.5 % (0-4); Lymphocytes % 3.3 %; Mean Corpuscular HGB Conc 27.2 g/dL (31.6-35.5); Mean Corpuscular Hemoglobin 25.8 pg (28.0-33.3); Mean Corpuscular Volume 94.7 fL (83.0-100.0); Mean Platelet Volume 9.5 fL (9.4-12.4); Monocytes % 0.3 %; Platelet Count 151 K/mcL (140-400); Red Blood Count 3.76 M/mcL (4.19-5.50); Red Cell Distribution Width 16.7 % (11.5-14.5); Segmented Neutrophils % 95.8 %; White Blood Count 10.5 K/mcL (4.3-11.1)
[2019-05-08 01:34] LABS: Lymphocytes # 0.4 K/mcL (0.6-4.6); Neutrophils # 10.1 K/mcL (1.6-8.9)
[2019-05-08 01:40] LABS: VBG HCO3 54 mEq/L (21-27); VBG PCO2 95 mmHg (41-51); VBG PH 7.36 pH Units (7.32-7.42); VBG PO2 99 mmHg (25-50)
[2019-05-08 02:01] LABS: BUN/Creatinine Ratio 33 (6-26); Blood Urea Nitrogen 18 mg/dL (6-20); Calcium 8.9 mg/dL (8.6-10.3); Carbon Dioxide > 45 mEq/L (23-29); Chloride 85 mEq/L (98-107); Glucose 164 mg/dL (70-105); Osmolality,Calculated 300 (280-300); Potassium 4.4 mEq/L (3.5-5.1); Sodium 142 mEq/L (136-145); eGFR For African Americans > 60 (> 60); eGFR For Non-African Americans > 60 (> 60)
[2019-05-08 02:11] LABS: Platelet Estimate Decreased (Normal)
[2019-05-08] MEDS: Ipratropium/Albuterol Neb 3 ML IH SCH ×4 (03:47→22:18)
[2019-05-08 04:22] LABS: INR 2.6; Prothrombin Time 29.7 Seconds (9.4-12.1)
[2019-05-08 04:25] LABS: VBG HCO3 54 mEq/L (21-27); VBG PCO2 92 mmHg (41-51); VBG PH 7.37 pH Units (7.32-7.42); VBG PO2 72 mmHg (25-50)
[2019-05-08 07:47] LABS: Estimated Average Glucose 126 mg/dl
[2019-05-08] MEDS: *HR* Amiodarone 200 MG TABLET PO SCH (09:07)
[2019-05-08] MEDS: rOPINIRole 0.25 MG TABLET PO SCH ×2 (09:07→20:34)
[2019-05-08] MEDS: Fluticasone Propionate Nasal 50 MCG/SPRAY BOTTLE NS SCH (09:08)
[2019-05-08 14:23] LABS: ABG Base Excess 23 mEq/L (-2 to 3); ABG HCO3 54 mEq/L (21-27); ABG Oxygen Saturation 94 % (95-98); ABG PCO2 106 mmHg (35-45); ABG PH 7.32 pH Units (7.32-7.45); ABG PO2 86 mmHg (85-104); ABG TCO2 > 50 mEq/L (20-26); Blood Gas Pressure Support 14 cm H2O
[2019-05-08] MEDS ORDERED: Acetaminophen 325 MG TABLET PO PRN (14:55)
[2019-05-08] MEDS: Furosemide 40 MG/4 ML VIAL IVP SCH ×2 (16:01→20:34)
[2019-05-08] MEDS ORDERED: Warfarin perPT PO PRN (18:00)
[2019-05-08] MEDS ORDERED: *HR* Warfarin 3 MG TABLET PO ONE (18:00)
[2019-05-08] MEDS ORDERED: *HR* Warfarin 3 MG TABLET PO SCH (18:00)
[2019-05-08] MEDS ORDERED: WARFARIN PO ONE (18:00)
[2019-05-08] MEDS: Budesonide/Formoterol 80/4.5 1 PUFF INH IH SCH (22:18)
[2019-05-09 02:14] LABS: Basophils % 0.1 %; Eosinophils % 0.1 %; Hematocrit 33.9 % (37.5-50.1); Red Cell Distribution Width 16.6 % (11.5-14.5)
[2019-05-09 02:16] LABS: Hemoglobin 9.7 g/dL (12.9-16.9); Immature Granulocytes % 0.5 % (0-4); Lymphocytes # 0.8 K/mcL (0.6-4.6); Lymphocytes % 9.3 %; Mean Corpuscular HGB Conc 28.6 g/dL (31.6-35.5); Mean Corpuscular Hemoglobin 25.9 pg (28.0-33.3); Mean Corpuscular Volume 90.6 fL (83.0-100.0); Mean Platelet Volume 9.5 fL (9.4-12.4); Monocytes # 0.9 K/mcL (0.0-1.3); Monocytes % 10.5 %; Neutrophils # 6.6 K/mcL (1.6-8.9); Platelet Count 173 K/mcL (140-400); Red Blood Count 3.74 M/mcL (4.19-5.50); Segmented Neutrophils % 79.5 %; White Blood Count 8.3 K/mcL (4.3-11.1)
[2019-05-09 02:20] LABS: INR 2.1; Prothrombin Time 23.4 Seconds (9.4-12.1)
[2019-05-09 02:32] LABS: BUN/Creatinine Ratio 33 (6-26); Blood Urea Nitrogen 21 mg/dL (6-20); Calcium 8.8 mg/dL (8.6-10.3); Carbon Dioxide > 45 mEq/L (23-29); Chloride 86 mEq/L (98-107); Glucose 123 mg/dL (70-105); Osmolality,Calculated 296 (280-300); Platelet Estimate Normal (Normal); Potassium 3.9 mEq/L (3.5-5.1); Sodium 141 mEq/L (136-145); eGFR For African Americans > 60 (> 60); eGFR For Non-African Americans > 60 (> 60)
[2019-05-09] MEDS: Ipratropium/Albuterol Neb 3 ML IH SCH ×4 (04:15→21:41)
[2019-05-09] MEDS: Multivit/Ca/Min/Fe/FA 1 TAB TABLET PO SCH (08:46)
[2019-05-09] MEDS: Furosemide 40 MG/4 ML VIAL IVP SCH ×2 (08:46→20:09)
[2019-05-09] MEDS: rOPINIRole 0.25 MG TABLET PO SCH ×2 (08:47→20:09)
[2019-05-09] MEDS: *HR* Amiodarone 200 MG TABLET PO SCH (08:47)
[2019-05-09] MEDS: Fluticasone Propionate Nasal 50 MCG/SPRAY BOTTLE NS SCH (08:48)
[2019-05-09] MEDS: Budesonide/Formoterol 80/4.5 1 PUFF INH IH SCH ×2 (10:12→21:41)
[2019-05-09 10:13] LABS: ABG Base Excess 27 mEq/L (-2 to 3); ABG HCO3 60 mEq/L (21-27); ABG Oxygen Saturation 98 % (95-98); ABG PCO2 114 mmHg (35-45); ABG PH 7.33 pH Units (7.32-7.45); ABG PO2 119 mmHg (85-104); ABG TCO2 > 50 mEq/L (20-26)
[2019-05-09 14:14] LABS: ABG Base Excess 27 mEq/L (-2 to 3); ABG HCO3 60 mEq/L (21-27); ABG Oxygen Saturation 97 % (95-98); ABG PCO2 125 mmHg (35-45); ABG PH 7.29 pH Units (7.32-7.45); ABG PO2 115 mmHg (85-104); ABG TCO2 > 50 mEq/L (20-26)
[2019-05-09] MEDS ORDERED: Isovue-370 500 ML BOTTLE IVP ONE (14:26)
[2019-05-09] MEDS ORDERED: *HR* Warfarin 3 MG TABLET PO ONE (18:00)
[2019-05-10] MEDS: Ipratropium/Albuterol Neb 3 ML IH SCH ×3 (03:43→15:44)
[2019-05-10 04:11] LABS: ABG Base Excess 27 mEq/L (-2 to 3); ABG HCO3 57 mEq/L (21-27); ABG Oxygen Saturation 93 % (95-98); ABG PCO2 98 mmHg (35-45); ABG PH 7.37 pH Units (7.32-7.45); ABG PO2 75 mmHg (85-104); ABG TCO2 > 50 mEq/L (20-26); Blood Gas Modality BiLevel; Blood Gas VT 550 cc
[2019-05-10 05:51] LABS: Basophils % 0.1 %; Eosinophils # 0.1 K/mcL (0.0-0.6); Hematocrit 32.4 % (37.5-50.1); Hemoglobin 9.3 g/dL (12.9-16.9); Immature Granulocytes % 0.4 % (0-4); Lymphocytes % 13.2 %; Mean Corpuscular HGB Conc 28.7 g/dL (31.6-35.5); Mean Corpuscular Hemoglobin 26.2 pg (28.0-33.3); Mean Corpuscular Volume 91.3 fL (83.0-100.0); Mean Platelet Volume 9.1 fL (9.4-12.4); Monocytes # 0.7 K/mcL (0.0-1.3); Monocytes % 10.2 %; Neutrophils # 5.5 K/mcL (1.6-8.9); Platelet Count 148 K/mcL (140-400); Red Blood Count 3.55 M/mcL (4.19-5.50); Red Cell Distribution Width 16.7 % (11.5-14.5); Segmented Neutrophils % 75.1 %; White Blood Count 7.3 K/mcL (4.3-11.1)
[2019-05-10 05:57] LABS: Prothrombin Time 23.3 Seconds (9.4-12.1)
[2019-05-10 06:20] LABS: BUN/Creatinine Ratio 38 (6-26); Blood Urea Nitrogen 23 mg/dL (6-20); Calcium 8.8 mg/dL (8.6-10.3); Carbon Dioxide > 45 mEq/L (23-29); Chloride 87 mEq/L (98-107); Glucose 96 mg/dL (70-105); Osmolality,Calculated 304 (280-300); Sodium 145 mEq/L (136-145); eGFR For African Americans > 60 (> 60); eGFR For Non-African Americans > 60 (> 60)
[2019-05-10 06:22] LABS: Platelet Estimate Normal (Normal)
[2019-05-10 07:08] VITALS: BP 129/77
[2019-05-10] MEDS: *HR* Amiodarone 200 MG TABLET PO SCH (08:49)
[2019-05-10] MEDS: Multivit/Ca/Min/Fe/FA 1 TAB TABLET PO SCH (08:49)
[2019-05-10] MEDS: Furosemide 40 MG/4 ML VIAL IVP SCH (08:50)
[2019-05-10] MEDS: rOPINIRole 0.25 MG TABLET PO SCH (08:51)
[2019-05-10] MEDS: Budesonide/Formoterol 80/4.5 1 PUFF INH IH SCH (10:40)
[2019-05-10] MEDS: Fluticasone Propionate Nasal 50 MCG/SPRAY BOTTLE NS SCH (11:46)
[2019-05-10] MEDS ORDERED: Warfarin 4 MG, Warfarin 2.5 MG PO ONE (18:00)
== END 2019-05-10 18:10 ==
LOC: 2NENU → SUATTDRO 22:56
PROVIDERS: ADMIT Internal Medicine; ATTEND Student in an Organized Health Care Education/Training Program

== ENCOUNTER 2019-05-31 13:13 | Inpatient (IN) ==
[2019-05-31] MEDS ORDERED: Naloxone 0.4 MG/ML INJ IVP PRN (16:06)
[2019-05-31] MEDS ORDERED: Dextrose Gel 15 GM/37.5 ML TUBE PO PRN ×4 (16:10→18:02)
[2019-05-31] MEDS ORDERED: D5% in Water 1,000 ML IVC PRN ×2 (16:10→18:02)
[2019-05-31] MEDS ORDERED: Artificial Tears SOLN 15 ML BOTTLE BOTH EYES PRN (16:10)
[2019-05-31] MEDS ORDERED: *HR* Dextrose 50 % in Water (Syg) 50 ML SYRINGE IVP PRN ×2 (16:10→18:02)
[2019-05-31] MEDS ORDERED: Albuterol 2.5 MG/3 ML NEBULIZER IH PRN (16:41)
[2019-05-31] MEDS ORDERED: *HR* FentaNYL (PF) 100 MCG/2 ML VIAL IVP ONE (16:48)
[2019-05-31] MEDS ORDERED: *HR* Midazolam HCl 2 MG/2 ML VIAL IVP ONE (16:48)
[2019-05-31 16:49] LABS: ABG Base Excess > 30 mEq/L (-2 to 3); ABG HCO3 61 mEq/L (21-27); ABG Oxygen Saturation 90 % (95-98); ABG PCO2 88 mmHg (35-45); ABG PH 7.45 pH Units (7.32-7.45); ABG PO2 61 mmHg (85-104); ABG TCO2 > 50 mEq/L (20-26); Blood Gas Modality AF; Blood Gas VT 500 cc
[2019-05-31] MEDS ORDERED: *HR* Midazolam HCl 2 MG/2 ML VIAL ONE (16:49)
[2019-05-31] MEDS ORDERED: *HR* FentaNYL (PF) 100 MCG/2 ML VIAL ONE (16:50)
[2019-05-31] MEDS: FentaNYL (PF) 1,000 MCG in 0.9 % Sodium Chloride 80 ML IVC SCH (17:17)
[2019-05-31] MEDS ORDERED: Warfarin perPT PO PRN (18:00)
[2019-05-31] MEDS ORDERED: *HR* Heparin 5,000 UNIT/ML VIAL IVP PRN ×2 (18:03)
[2019-05-31] MEDS: Piperacillin/Tazobactam 3.375 GM in 0.9 % Sodium Chloride Mini Bag 100 ML IVPB SCH ×2 (18:03→23:37)
[2019-05-31] MEDS: methylPREDNISolone 125 MG/2 ML VIAL IVP SCH (18:04)
[2019-05-31] MEDS: Famotidine 20 MG/2 ML VIAL IVP SCH (18:05)
[2019-05-31 18:23] LABS: INR 2.2
[2019-05-31] MEDS: Chlorhexidine Rinse 15 ML MOUTHWASH MM SCH (19:30)
[2019-05-31] MEDS: Heparin 25,000 UNIT/250 ML D5W 25,000 UNIT/250 ML IV.SOLN IVC SCH (19:30)
[2019-05-31] MEDS: Artificial Tears SOLN 15 ML BOTTLE BOTH EYES SCH ×2 (19:30→23:40)
[2019-05-31] MEDS: carvediloL 6.25 MG TABLET PO SCH (19:30)
[2019-05-31] MEDS: Ipratropium/Albuterol Neb 3 ML IH SCH ×2 (19:39→23:04)
[2019-05-31 20:33] LABS: Adenovirus DETECTED (Not Detect); Bordetella Pertussis Not Detected (Not Detect); Chlamydophila pneumoniae Not Detected (Not Detect); Coronavirus 229E Not Detected (Not Detect); Coronavirus HKU1 Not Detected (Not Detect); Coronavirus NL63 Not Detected (Not Detect); Coronavirus OC43 Not Detected (Not Detect); Human Metapneumovirus Not Detected (Not Detect); Human Rhinovirus/Enterovirus Not Detected (Not Detect); Influenza A Subtype 2009 H1 Not Detected (Not Detect); Influenza A Untypeable Not Detected (Not Detect); Influenza B Not Detected (Not Detect); Mycoplasma pneumoniae Not Detected (Not Detect); Parainfluenza Virus 1 Not Detected (Not Detect); Parainfluenza Virus 2 Not Detected (Not Detect); Parainfluenza Virus 3 Not Detected (Not Detect); Parainfluenza Virus 4 Not Detected (Not Detect); Respiratory Syncytial Virus Not Detected (Not Detect)
[2019-05-31] MEDS ORDERED: Insulin LISPRO 300 UNITS/3 ML VIAL SQ SCH (21:00)
[2019-05-31 22:42] LABS: Hematocrit 33.9 % (37.5-50.1); Hemoglobin 9.2 g/dL (12.9-16.9); Mean Corpuscular HGB Conc 27.1 g/dL (31.6-35.5); Mean Corpuscular Hemoglobin 25.9 pg (28.0-33.3); Mean Corpuscular Volume 95.5 fL (83.0-100.0); Mean Platelet Volume 10.2 fL (9.4-12.4); Platelet Count 133 K/mcL (140-400); Red Blood Count 3.55 M/mcL (4.19-5.50); Red Cell Distribution Width 15.2 % (11.5-14.5); White Blood Count 13.1 K/mcL (4.3-11.1)
[2019-05-31 22:47] LABS: Heparin anti-factor XA UFH 0.34 IU/mL (0.30-0.70)
[2019-05-31 22:48] LABS: INR 2.2; Prothrombin Time 25.5 Seconds (9.4-12.1)
[2019-05-31] MEDS: Insulin LISPRO 300 UNITS/3 ML VIAL SQ SCH (23:39)
[2019-06-01] MEDS ORDERED: Piperacillin/Tazobactam 3.375 GM in 0.9 % Sodium Chloride Mini Bag 100 ML IVPB SCH
[2019-06-01] MEDS: FentaNYL (PF) 1,000 MCG in 0.9 % Sodium Chloride 80 ML IVC SCH ×3 (00:06→18:31)
[2019-06-01 02:48] LABS: Hematocrit 32.3 % (37.5-50.1); Hemoglobin 9.5 g/dL (12.9-16.9); Immature Granulocytes % 0.4 % (0-4); Lymphocytes # 0.3 K/mcL (0.6-4.6); Lymphocytes % 2.8 %; Mean Corpuscular HGB Conc 29.4 g/dL (31.6-35.5); Mean Corpuscular Hemoglobin 26.8 pg (28.0-33.3); Mean Platelet Volume 9.7 fL (9.4-12.4); Monocytes # 0.4 K/mcL (0.0-1.3); Monocytes % 3.6 %; Platelet Count 128 K/mcL (140-400); Red Blood Count 3.55 M/mcL (4.19-5.50); Red Cell Distribution Width 15.1 % (11.5-14.5); Segmented Neutrophils % 93.2 %; White Blood Count 11.8 K/mcL (4.3-11.1)
[2019-06-01] MEDS: Ipratropium/Albuterol Neb 3 ML IH SCH ×6 (03:07→23:37)
[2019-06-01 03:10] LABS: BUN/Creatinine Ratio 41 (6-26); Blood Urea Nitrogen 25 mg/dL (6-20); Calcium 8.5 mg/dL (8.6-10.3); Carbon Dioxide > 45 mEq/L (23-29); Chloride 86 mEq/L (98-107); Glucose 183 mg/dL (70-105); Osmolality,Calculated 307 (280-300); Phosphorous 1.8 mg/dL (2.7-4.5); Potassium 3.5 mEq/L (3.5-5.1); Sodium 144 mEq/L (136-145); eGFR For African Americans > 60 (> 60); eGFR For Non-African Americans > 60 (> 60)
[2019-06-01] MEDS: Heparin 25,000 UNIT/250 ML D5W 25,000 UNIT/250 ML IV.SOLN IVC SCH ×2 (03:37→18:32)
[2019-06-01] MEDS ORDERED: Potassium Phosphate 44 MEQ in 0.9 % Sodium Chloride 250 ML IVPB ONE (04:00)
[2019-06-01] MEDS: Artificial Tears SOLN 15 ML BOTTLE BOTH EYES SCH ×6 (04:06→23:15)
[2019-06-01 04:15] LABS: ABG Base Excess > 30 mEq/L (-2 to 3); ABG HCO3 58 mEq/L (21-27); ABG Oxygen Saturation 97 % (95-98); ABG PCO2 70 mmHg (35-45); ABG PH 7.52 pH Units (7.32-7.45); ABG PO2 92 mmHg (85-104); ABG TCO2 > 50 mEq/L (20-26); Blood Gas Modality AF; Blood Gas VT 500 cc
[2019-06-01] MEDS: methylPREDNISolone 125 MG/2 ML VIAL IVP SCH (06:09)
[2019-06-01] MEDS: Famotidine 20 MG/2 ML VIAL IVP SCH ×2 (06:09→17:34)
[2019-06-01] MEDS: Insulin LISPRO 300 UNITS/3 ML VIAL SQ SCH ×4 (06:16→23:16)
[2019-06-01] MEDS ORDERED: Potassium Chloride Elixir 20 MEQ/15 ML UDC PO ONE (07:17)
[2019-06-01] MEDS ORDERED: Furosemide 40 MG/4 ML VIAL IVP ONE (07:17)
[2019-06-01] MEDS ORDERED: Insulin LISPRO 300 UNITS/3 ML VIAL SQ SCH (07:30)
[2019-06-01] MEDS ORDERED: Vancomycin 1 EACH in 0.9 % Sodium Chloride 250 ML IVPB SCH (08:00)
[2019-06-01] MEDS ORDERED: Furosemide 40 MG/4 ML VIAL ONE (08:08)
[2019-06-01] MEDS: Piperacillin/Tazobactam 3.375 GM in 0.9 % Sodium Chloride Mini Bag 100 ML IVPB SCH ×3 (08:10→23:09)
[2019-06-01] MEDS: Chlorhexidine Rinse 15 ML MOUTHWASH MM SCH ×2 (08:10→19:31)
[2019-06-01] MEDS: *HR* Amiodarone 200 MG TABLET PO SCH (08:11)
[2019-06-01] MEDS: Diltiazem CD (24hr) 180 MG CAPSULE PO SCH (08:11)
[2019-06-01] MEDS: Dexmedetomidine HCl 400 MCG/100 ML MLS IVC SCH ×5 (10:44→23:09)
[2019-06-01] MEDS: carvediloL 6.25 MG TABLET PO SCH ×2 (10:44→16:19)
[2019-06-01] MEDS ORDERED: Perflutren Lipid Microsphere 1.3 ML in 0.9 % Sodium Chloride 8.7 ML IVP ONE (10:56)
[2019-06-01] MEDS ORDERED: Perflutren Lipid Microsphere 2 ML VIAL ONE (11:11)
[2019-06-02] MEDS: Dexmedetomidine HCl 400 MCG/100 ML MLS IVC SCH ×4 (02:44→10:55)
[2019-06-02] MEDS: FentaNYL (PF) 1,000 MCG in 0.9 % Sodium Chloride 80 ML IVC SCH ×2 (02:44→09:17)
[2019-06-02] MEDS: Heparin 25,000 UNIT/250 ML D5W 25,000 UNIT/250 ML IV.SOLN IVC SCH ×2 (02:46→14:26)
[2019-06-02] MEDS: Ipratropium/Albuterol Neb 3 ML IH SCH ×6 (03:10→23:23)
[2019-06-02] MEDS: Famotidine 20 MG/2 ML VIAL IVP SCH ×2 (05:01→17:49)
[2019-06-02] MEDS: Artificial Tears SOLN 15 ML BOTTLE BOTH EYES SCH ×6 (05:01→23:02)
[2019-06-02 05:03] LABS: ABG Base Excess 22 mEq/L (-2 to 3); ABG HCO3 54 mEq/L (21-27); ABG Oxygen Saturation 93 % (95-98); ABG PCO2 102 mmHg (35-45); ABG PH 7.33 pH Units (7.32-7.45); ABG PO2 78 mmHg (85-104); ABG TCO2 > 50 mEq/L (20-26); Blood Gas Modality PRVC; Blood Gas VT 500 cc
[2019-06-02] MEDS: Insulin LISPRO 300 UNITS/3 ML VIAL SQ SCH ×4 (05:07→23:33)
[2019-06-02 05:32] LABS: BUN/Creatinine Ratio 42 (6-26); Blood Urea Nitrogen 28 mg/dL (6-20); Calcium 8.7 mg/dL (8.6-10.3); Carbon Dioxide 44 mEq/L (23-29); Chloride 91 mEq/L (98-107); Glucose 176 mg/dL (70-105); Magnesium 2.1 mg/dL (1.6-2.6); Osmolality,Calculated 304 (280-300); Potassium 3.7 mEq/L (3.5-5.1); Sodium 142 mEq/L (136-145); eGFR For African Americans > 60 (> 60); eGFR For Non-African Americans > 60 (> 60)
[2019-06-02 06:49] LABS: Basophils % 0.1 %; Immature Granulocytes % 0.5 % (0-4); Red Cell Distribution Width 15.2 % (11.5-14.5)
[2019-06-02 06:51] LABS: Hematocrit 36.2 % (37.5-50.1); Hemoglobin 10.5 g/dL (12.9-16.9); Lymphocytes # 0.4 K/mcL (0.6-4.6); Lymphocytes % 3.6 %; Mean Corpuscular Hemoglobin 26.2 pg (28.0-33.3); Mean Corpuscular Volume 90.3 fL (83.0-100.0); Monocytes # 1.1 K/mcL (0.0-1.3); Monocytes % 9.7 %; Neutrophils # 10.1 K/mcL (1.6-8.9); Platelet Count 168 K/mcL (140-400); Red Blood Count 4.01 M/mcL (4.19-5.50); Segmented Neutrophils % 86.1 %; White Blood Count 11.7 K/mcL (4.3-11.1)
[2019-06-02] MEDS: Piperacillin/Tazobactam 3.375 GM in 0.9 % Sodium Chloride Mini Bag 100 ML IVPB SCH ×3 (07:34→23:34)
[2019-06-02] MEDS: carvediloL 6.25 MG TABLET PO SCH ×2 (07:35→16:07)
[2019-06-02] MEDS: methylPREDNISolone 125 MG/2 ML VIAL IVP SCH (07:40)
[2019-06-02] MEDS: Chlorhexidine Rinse 15 ML MOUTHWASH MM SCH ×2 (07:41→19:34)
[2019-06-02] MEDS: *HR* Amiodarone 200 MG TABLET PO SCH (07:41)
[2019-06-02] MEDS: Diltiazem CD (24hr) 180 MG CAPSULE PO SCH (07:41)
[2019-06-02 07:56] LABS: Hypochromasia Present (Not Present)
[2019-06-02 07:59] LABS: Platelet Estimate Slight Decrease (Normal)
[2019-06-02] MEDS ORDERED: Aminoglycoside Consult 1 EACH MC ONE (09:12)
[2019-06-02] MEDS ORDERED: Furosemide 40 MG/4 ML VIAL IVP ONE ×2 (10:18→14:04)
[2019-06-02] MEDS ORDERED: Furosemide 40 MG/4 ML VIAL ONE (10:20)
[2019-06-02 14:41] LABS: INR 2.9; Prothrombin Time 32.9 Seconds (9.4-12.1)
[2019-06-02] MEDS ORDERED: Warfarin perPT PO PRN (18:00)
[2019-06-03] MEDS: Ipratropium/Albuterol Neb 3 ML IH SCH ×6 (03:50→23:32)
[2019-06-03 04:50] LABS: Hemoglobin 9.9 g/dL (12.9-16.9); Immature Granulocytes % 0.6 % (0-4); Lymphocytes # 0.5 K/mcL (0.6-4.6); Lymphocytes % 5.2 %; Mean Corpuscular HGB Conc 27.5 g/dL (31.6-35.5); Mean Corpuscular Hemoglobin 26.4 pg (28.0-33.3); Monocytes # 1.2 K/mcL (0.0-1.3); Monocytes % 11.8 %; Neutrophils # 8.5 K/mcL (1.6-8.9); Platelet Count 168 K/mcL (140-400); Red Blood Count 3.75 M/mcL (4.19-5.50); Red Cell Distribution Width 15.4 % (11.5-14.5); Segmented Neutrophils % 82.4 %; White Blood Count 10.3 K/mcL (4.3-11.1)
[2019-06-03 05:10] LABS: INR 2.3; Prothrombin Time 26.1 Seconds (9.4-12.1)
[2019-06-03 05:26] LABS: BUN/Creatinine Ratio 39 (6-26); Blood Urea Nitrogen 27 mg/dL (6-20); Calcium 8.6 mg/dL (8.6-10.3); Carbon Dioxide > 45 mEq/L (23-29); Chloride 93 mEq/L (98-107); Glucose 109 mg/dL (70-105); Osmolality,Calculated 310 (280-300); Potassium 3.7 mEq/L (3.5-5.1); Sodium 147 mEq/L (136-145); eGFR For African Americans > 60 (> 60); eGFR For Non-African Americans > 60 (> 60)
[2019-06-03] MEDS: Insulin LISPRO 300 UNITS/3 ML VIAL SQ SCH ×4 (05:39→23:24)
[2019-06-03] MEDS: Artificial Tears SOLN 15 ML BOTTLE BOTH EYES SCH ×2 (05:39→08:29)
[2019-06-03] MEDS: Famotidine 20 MG/2 ML VIAL IVP SCH ×2 (05:40→17:25)
[2019-06-03] MEDS: carvediloL 6.25 MG TABLET PO SCH ×2 (08:29→17:24)
[2019-06-03] MEDS: Piperacillin/Tazobactam 3.375 GM in 0.9 % Sodium Chloride Mini Bag 100 ML IVPB SCH ×3 (08:29→23:32)
[2019-06-03] MEDS: methylPREDNISolone 125 MG/2 ML VIAL IVP SCH (08:29)
[2019-06-03] MEDS: *HR* Amiodarone 200 MG TABLET PO SCH (08:29)
[2019-06-03] MEDS: Chlorhexidine Rinse 15 ML MOUTHWASH MM SCH (08:31)
[2019-06-03] MEDS: Diltiazem CD (24hr) 180 MG CAPSULE PO SCH (08:31)
[2019-06-03] MEDS ORDERED: Naloxone 0.4 MG/ML INJ IVP PRN (09:09)
[2019-06-03] MEDS ORDERED: Dextrose Gel 15 GM/37.5 ML TUBE PO PRN ×4 (09:09)
[2019-06-03] MEDS ORDERED: Warfarin perPT PO PRN (09:09)
[2019-06-03] MEDS ORDERED: Albuterol 2.5 MG/3 ML NEBULIZER IH PRN (09:09)
[2019-06-03] MEDS ORDERED: D5% in Water 1,000 ML IVC PRN (09:09)
[2019-06-03] MEDS ORDERED: *HR* Dextrose 50 % in Water (Syg) 50 ML SYRINGE IVP PRN (09:09)
[2019-06-03] MEDS ORDERED: *HR* Warfarin 3 MG TABLET PO ONE (18:00)
[2019-06-04] MEDS: Ipratropium/Albuterol Neb 3 ML IH SCH ×6 (03:35→23:55)
[2019-06-04 04:49] LABS: INR 2.5
[2019-06-04 05:00] LABS: Hematocrit 37.2 % (37.5-50.1); Hemoglobin 10.4 g/dL (12.9-16.9); Mean Corpuscular Hemoglobin 26.2 pg (28.0-33.3); Mean Corpuscular Volume 93.7 fL (83.0-100.0); Mean Platelet Volume 9.7 fL (9.4-12.4); Platelet Count 176 K/mcL (140-400); Red Blood Count 3.97 M/mcL (4.19-5.50); Red Cell Distribution Width 15.2 % (11.5-14.5); White Blood Count 8.6 K/mcL (4.3-11.1)
[2019-06-04 05:08] LABS: BUN/Creatinine Ratio 37 (6-26); Blood Urea Nitrogen 22 mg/dL (6-20); Calcium 8.8 mg/dL (8.6-10.3); Carbon Dioxide 42 mEq/L (23-29); Chloride 93 mEq/L (98-107); Glucose 107 mg/dL (70-105); Osmolality,Calculated 298 (280-300); Potassium 3.9 mEq/L (3.5-5.1); Sodium 142 mEq/L (136-145); eGFR For African Americans > 60 (> 60); eGFR For Non-African Americans > 60 (> 60)
[2019-06-04] MEDS: Insulin LISPRO 300 UNITS/3 ML VIAL SQ SCH ×4 (05:11→21:02)
[2019-06-04] MEDS: Famotidine 20 MG/2 ML VIAL IVP SCH (05:48)
[2019-06-04] MEDS: carvediloL 6.25 MG TABLET PO SCH ×2 (08:31→17:44)
[2019-06-04] MEDS: Piperacillin/Tazobactam 3.375 GM in 0.9 % Sodium Chloride Mini Bag 100 ML IVPB SCH (08:33)
[2019-06-04] MEDS ORDERED: methylPREDNISolone 125 MG/2 ML VIAL IVP SCH (09:00)
[2019-06-04] MEDS ORDERED: Diltiazem CD (24hr) 180 MG CAPSULE PO SCH (09:00)
[2019-06-04] MEDS ORDERED: *HR* Amiodarone 200 MG TABLET PO SCH (09:00)
[2019-06-04] MEDS ORDERED: Warfarin perPT PO PRN (09:16)
[2019-06-04] MEDS ORDERED: Dextrose Gel 15 GM/37.5 ML TUBE PO PRN ×2 (09:16)
[2019-06-04] MEDS ORDERED: *HR* Dextrose 50 % in Water (Syg) 50 ML SYRINGE IVP PRN (09:16)
[2019-06-04] MEDS ORDERED: Naloxone 0.4 MG/ML INJ IVP PRN (09:16)
[2019-06-04] MEDS ORDERED: Albuterol 2.5 MG/3 ML NEBULIZER IH PRN (09:16)
[2019-06-04] MEDS ORDERED: D5% in Water 1,000 ML IVC PRN (09:16)
[2019-06-04] MEDS ORDERED: Piperacillin/Tazobactam 3.375 GM in 0.9 % Sodium Chloride Mini Bag 100 ML IVPB SCH (16:00)
[2019-06-04] MEDS ORDERED: *HR* Warfarin 5 MG TABLET PO ONE (18:00)
[2019-06-04] MEDS ORDERED: Famotidine 20 MG/2 ML VIAL IVP SCH (18:00)
[2019-06-05] MEDS: Ipratropium/Albuterol Neb 3 ML IH SCH ×6 (03:44→23:55)
[2019-06-05 04:50] LABS: INR 3.3; Prothrombin Time 37.8 Seconds (9.4-12.1)
[2019-06-05] MEDS: *HR* Amiodarone 200 MG TABLET PO SCH (09:36)
[2019-06-05] MEDS: Diltiazem CD (24hr) 180 MG CAPSULE PO SCH (09:36)
[2019-06-05] MEDS: carvediloL 6.25 MG TABLET PO SCH ×2 (09:36→16:17)
[2019-06-05] MEDS: Insulin LISPRO 300 UNITS/3 ML VIAL SQ SCH ×4 (09:37→21:20)
[2019-06-05] MEDS: methylPREDNISolone 125 MG/2 ML VIAL IVP SCH (09:37)
[2019-06-05] MEDS ORDERED: Acetaminophen 325 MG TABLET PO PRN (14:24)
[2019-06-05 14:53] LABS: BUN/Creatinine Ratio 34 (6-26); Blood Urea Nitrogen 21 mg/dL (6-20); Carbon Dioxide > 45 mEq/L (23-29); Chloride 92 mEq/L (98-107); Glucose 236 mg/dL (70-105); Osmolality,Calculated 307 (280-300); Potassium 4.4 mEq/L (3.5-5.1); Sodium 143 mEq/L (136-145); eGFR For African Americans > 60 (> 60); eGFR For Non-African Americans > 60 (> 60)
[2019-06-05] MEDS: Budesonide/Formoterol 80/4.5 1 PUFF INH IH SCH (20:06)
[2019-06-05] MEDS: rOPINIRole 0.25 MG TABLET PO SCH (21:20)
[2019-06-06] MEDS: Ipratropium/Albuterol Neb 3 ML IH SCH ×5 (03:39→19:54)
[2019-06-06 04:53] LABS: Eosinophils % 0.2 %; INR 2.5; Mean Platelet Volume 9.6 fL (9.4-12.4); Prothrombin Time 28.2 Seconds (9.4-12.1)
[2019-06-06 04:55] LABS: Basophils % 0.2 %; Hematocrit 37.3 % (37.5-50.1); Hemoglobin 10.1 g/dL (12.9-16.9); Immature Granulocytes % 0.7 % (0-4); Lymphocytes # 0.7 K/mcL (0.6-4.6); Lymphocytes % 7.5 %; Mean Corpuscular HGB Conc 27.1 g/dL (31.6-35.5); Mean Corpuscular Hemoglobin 25.9 pg (28.0-33.3); Mean Corpuscular Volume 95.6 fL (83.0-100.0); Monocytes # 1.3 K/mcL (0.0-1.3); Monocytes % 13.6 %; Neutrophils # 7.6 K/mcL (1.6-8.9); Platelet Count 170 K/mcL (140-400); Red Cell Distribution Width 15.3 % (11.5-14.5); Segmented Neutrophils % 77.8 %; White Blood Count 9.8 K/mcL (4.3-11.1)
[2019-06-06 05:24] LABS: Platelet Estimate Normal (Normal)
[2019-06-06 05:25] LABS: BUN/Creatinine Ratio 41 (6-26); Blood Urea Nitrogen 21 mg/dL (6-20); Calcium 8.7 mg/dL (8.6-10.3); Carbon Dioxide > 45 mEq/L (23-29); Chloride 95 mEq/L (98-107); Glucose 103 mg/dL (70-105); Osmolality,Calculated 305 (280-300); Potassium 4.2 mEq/L (3.5-5.1); Sodium 146 mEq/L (136-145); eGFR For African Americans > 60 (> 60); eGFR For Non-African Americans > 60 (> 60)
[2019-06-06] MEDS: Budesonide/Formoterol 80/4.5 1 PUFF INH IH SCH ×2 (07:41→19:54)
[2019-06-06] MEDS: methylPREDNISolone 125 MG/2 ML VIAL IVP SCH (09:17)
[2019-06-06] MEDS: *HR* Amiodarone 200 MG TABLET PO SCH (09:18)
[2019-06-06] MEDS: carvediloL 6.25 MG TABLET PO SCH ×2 (09:18→17:51)
[2019-06-06] MEDS: Diltiazem CD (24hr) 180 MG CAPSULE PO SCH (09:18)
[2019-06-06] MEDS: rOPINIRole 0.25 MG TABLET PO SCH ×2 (09:18→21:08)
[2019-06-06] MEDS: Insulin LISPRO 300 UNITS/3 ML VIAL SQ SCH ×4 (09:19→21:10)
[2019-06-06] MEDS ORDERED: WARFARIN PO ONE (18:00)
[2019-06-07] MEDS: Ipratropium/Albuterol Neb 3 ML IH SCH ×5 (00:16→15:35)
[2019-06-07 07:09] LABS: Eosinophils % 0.3 %; Immature Granulocytes % 0.6 % (0-4); Mean Corpuscular Hemoglobin 26.4 pg (28.0-33.3); Mean Platelet Volume 9.8 fL (9.4-12.4); Red Cell Distribution Width 15.3 % (11.5-14.5)
[2019-06-07 07:10] LABS: Basophils % 0.1 %; Hematocrit 37.7 % (37.5-50.1); Hemoglobin 10.7 g/dL (12.9-16.9); Lymphocytes # 0.8 K/mcL (0.6-4.6); Lymphocytes % 7.1 %; Mean Corpuscular HGB Conc 28.4 g/dL (31.6-35.5); Mean Corpuscular Volume 92.9 fL (83.0-100.0); Monocytes # 1.2 K/mcL (0.0-1.3); Monocytes % 10.8 %; Platelet Count 183 K/mcL (140-400); Red Blood Count 4.06 M/mcL (4.19-5.50); Segmented Neutrophils % 81.1 %; White Blood Count 11.1 K/mcL (4.3-11.1)
[2019-06-07 07:12] LABS: INR 1.5; Prothrombin Time 17.3 Seconds (9.4-12.1)
[2019-06-07] MEDS: Budesonide/Formoterol 80/4.5 1 PUFF INH IH SCH (07:30)
[2019-06-07 07:48] LABS: Hypochromasia Present (Not Present); Platelet Estimate Normal (Normal)
[2019-06-07 08:00] VITALS: BP 158/79
[2019-06-07] MEDS: Insulin LISPRO 300 UNITS/3 ML VIAL SQ SCH ×2 (08:00→13:15)
[2019-06-07 08:54] LABS: BUN/Creatinine Ratio 40 (6-26); Blood Urea Nitrogen 18 mg/dL (6-20); Calcium 8.9 mg/dL (8.6-10.3); Carbon Dioxide > 45 mEq/L (23-29); Chloride 91 mEq/L (98-107); Glucose 110 mg/dL (70-105); Osmolality,Calculated 305 (280-300); Potassium 4.1 mEq/L (3.5-5.1); Sodium 146 mEq/L (136-145); eGFR For African Americans > 60 (> 60); eGFR For Non-African Americans > 60 (> 60)
[2019-06-07] MEDS: Diltiazem CD (24hr) 180 MG CAPSULE PO SCH (10:01)
[2019-06-07] MEDS: *HR* Amiodarone 200 MG TABLET PO SCH (10:01)
[2019-06-07] MEDS: carvediloL 6.25 MG TABLET PO SCH (10:01)
[2019-06-07] MEDS: rOPINIRole 0.25 MG TABLET PO SCH (10:02)
[2019-06-07] MEDS: methylPREDNISolone 125 MG/2 ML VIAL IVP SCH (10:03)
[2019-06-07] MEDS ORDERED: *HR* Warfarin 7.5 MG TABLET PO ONE (18:00)
== END 2019-06-07 16:46 | disposition home health service (06) | DRG 208 ==
LOC: SUATTDRO 15:58 → ICNU 15:58 → 2NENU 06-04 13:55
PROVIDERS: ADMIT Pediatrics; ATTEND Family Medicine

== ENCOUNTER 2019-06-08 02:19 | Inpatient (IN) ==
[2019-06-08] MEDS ORDERED: Naloxone 0.4 MG/ML INJ IVP PRN (07:13)
[2019-06-08] MEDS ORDERED: Ondansetron 4 MG/2 ML VIAL IVP PRN (07:13)
[2019-06-08] MEDS: Ipratropium/Albuterol Neb 3 ML IH SCH ×4 (08:00→20:46)
[2019-06-08] MEDS ORDERED: Acetaminophen 325 MG TABLET PO PRN (08:11)
[2019-06-08] MEDS ORDERED: tiZANidine 4 MG TABLET PO PRN (08:11)
[2019-06-08 09:32] LABS: INR 2.3; Prothrombin Time 25.8 Seconds (9.4-12.1)
[2019-06-08] MEDS: Diltiazem CD (24hr) 180 MG CAPSULE PO SCH (10:58)
[2019-06-08] MEDS: *HR* Amiodarone 200 MG TABLET PO SCH (10:59)
[2019-06-08] MEDS: carvediloL 6.25 MG TABLET PO SCH ×2 (10:59→20:15)
[2019-06-08] MEDS: rOPINIRole 0.25 MG TABLET PO SCH ×2 (10:59→20:15)
[2019-06-08] MEDS: Fluticasone Propionate Nasal 50 MCG/SPRAY BOTTLE NS SCH (11:01)
[2019-06-08] MEDS: Piperacillin/Tazobactam 3.375 GM in 0.9 % Sodium Chloride Mini Bag 100 ML IVPB SCH ×2 (11:03→17:20)
[2019-06-08] MEDS: Budesonide/Formoterol 80/4.5 1 PUFF INH IH SCH ×2 (11:55→20:46)
[2019-06-08 15:14] LABS: Adenovirus Not Detected (Not Detect); Bordetella Pertussis Not Detected (Not Detect); Chlamydophila pneumoniae Not Detected (Not Detect); Coronavirus 229E Not Detected (Not Detect); Coronavirus HKU1 Not Detected (Not Detect); Coronavirus NL63 Not Detected (Not Detect); Coronavirus OC43 Not Detected (Not Detect); Human Metapneumovirus Not Detected (Not Detect); Human Rhinovirus/Enterovirus Not Detected (Not Detect); Influenza A Subtype 2009 H1 Not Detected (Not Detect); Influenza A Untypeable Not Detected (Not Detect); Influenza B Not Detected (Not Detect); Mycoplasma pneumoniae Not Detected (Not Detect); Parainfluenza Virus 1 Not Detected (Not Detect); Parainfluenza Virus 2 Not Detected (Not Detect); Parainfluenza Virus 3 Not Detected (Not Detect); Parainfluenza Virus 4 Not Detected (Not Detect); Respiratory Syncytial Virus Not Detected (Not Detect)
[2019-06-08] MEDS ORDERED: *HR* Warfarin 3 MG TABLET PO ONE (18:00)
[2019-06-08] MEDS ORDERED: Warfarin perPT PO PRN (18:00)
[2019-06-08] MEDS ORDERED: *HR* Warfarin 2.5 MG TABLET PO ONE (18:00)
[2019-06-09] MEDS: Ipratropium/Albuterol Neb 3 ML IH SCH ×7 (00:26→23:39)
[2019-06-09] MEDS: Piperacillin/Tazobactam 3.375 GM in 0.9 % Sodium Chloride Mini Bag 100 ML IVPB SCH ×2 (01:34→08:43)
[2019-06-09 03:10] LABS: Basophils % 0.1 %; Immature Granulocytes % 0.4 % (0-4); Mean Corpuscular Hemoglobin 26.4 pg (28.0-33.3)
[2019-06-09 03:11] LABS: Eosinophils # 0.2 K/mcL (0.0-0.6); Eosinophils % 1.6 %; Hematocrit 35.7 % (37.5-50.1); INR 2.4; Lymphocytes # 0.7 K/mcL (0.6-4.6); Lymphocytes % 7.4 %; Mean Corpuscular Volume 94.2 fL (83.0-100.0); Monocytes # 0.8 K/mcL (0.0-1.3); Monocytes % 8.7 %; Neutrophils # 7.9 K/mcL (1.6-8.9); Platelet Count 141 K/mcL (140-400); Prothrombin Time 27.6 Seconds (9.4-12.1); Red Blood Count 3.79 M/mcL (4.19-5.50); Red Cell Distribution Width 15.6 % (11.5-14.5); Segmented Neutrophils % 81.8 %; White Blood Count 9.7 K/mcL (4.3-11.1)
[2019-06-09 03:34] LABS: BUN/Creatinine Ratio 41 (6-26); Blood Urea Nitrogen 18 mg/dL (6-20); Calcium 8.7 mg/dL (8.6-10.3); Carbon Dioxide > 45 mEq/L (23-29); Chloride 94 mEq/L (98-107); Glucose 95 mg/dL (70-105); Osmolality,Calculated 300 (280-300); Potassium 4.1 mEq/L (3.5-5.1); Sodium 144 mEq/L (136-145); eGFR For African Americans > 60 (> 60); eGFR For Non-African Americans > 60 (> 60)
[2019-06-09 03:38] LABS: Platelet Estimate Normal (Normal)
[2019-06-09] MEDS: Budesonide/Formoterol 80/4.5 1 PUFF INH IH SCH ×2 (07:28→20:03)
[2019-06-09] MEDS: rOPINIRole 0.25 MG TABLET PO SCH ×2 (08:44→19:46)
[2019-06-09] MEDS: Furosemide 40 MG/4 ML VIAL IVP SCH (08:44)
[2019-06-09] MEDS: carvediloL 6.25 MG TABLET PO SCH ×2 (08:44→19:45)
[2019-06-09] MEDS: *HR* Amiodarone 200 MG TABLET PO SCH (08:44)
[2019-06-09] MEDS: Diltiazem CD (24hr) 180 MG CAPSULE PO SCH (08:44)
[2019-06-09] MEDS: Fluticasone Propionate Nasal 50 MCG/SPRAY BOTTLE NS SCH (08:46)
[2019-06-09] MEDS ORDERED: *HR* Warfarin 5 MG TABLET PO ONE (18:00)
[2019-06-10] MEDS: Ipratropium/Albuterol Neb 3 ML IH SCH ×6 (03:55→23:07)
[2019-06-10 04:56] LABS: Hematocrit 34.9 % (37.5-50.1); Hemoglobin 9.8 g/dL (12.9-16.9); Mean Corpuscular HGB Conc 28.1 g/dL (31.6-35.5); Mean Corpuscular Hemoglobin 26.4 pg (28.0-33.3); Mean Corpuscular Volume 94.1 fL (83.0-100.0); Mean Platelet Volume 9.5 fL (9.4-12.4); Platelet Count 142 K/mcL (140-400); Red Blood Count 3.71 M/mcL (4.19-5.50); Red Cell Distribution Width 15.6 % (11.5-14.5); White Blood Count 10.1 K/mcL (4.3-11.1)
[2019-06-10 05:01] LABS: INR 2.8; Prothrombin Time 32.4 Seconds (9.4-12.1)
[2019-06-10 05:22] LABS: BUN/Creatinine Ratio 37 (6-26); Blood Urea Nitrogen 16 mg/dL (6-20); Calcium 8.8 mg/dL (8.6-10.3); Carbon Dioxide > 45 mEq/L (23-29); Chloride 89 mEq/L (98-107); Glucose 117 mg/dL (70-105); Osmolality,Calculated 300 (280-300); Potassium 4.1 mEq/L (3.5-5.1); Sodium 144 mEq/L (136-145); eGFR For African Americans > 60 (> 60); eGFR For Non-African Americans > 60 (> 60)
[2019-06-10] MEDS: Budesonide/Formoterol 80/4.5 1 PUFF INH IH SCH ×2 (07:30→19:45)
[2019-06-10] MEDS: Furosemide 40 MG/4 ML VIAL IVP SCH (08:10)
[2019-06-10] MEDS: rOPINIRole 0.25 MG TABLET PO SCH ×2 (08:11→20:44)
[2019-06-10] MEDS: Diltiazem CD (24hr) 180 MG CAPSULE PO SCH (08:11)
[2019-06-10] MEDS: carvediloL 6.25 MG TABLET PO SCH ×2 (08:11→20:44)
[2019-06-10] MEDS: *HR* Amiodarone 200 MG TABLET PO SCH (08:11)
[2019-06-10 08:21] LABS: ABG Base Excess 26 mEq/L (-2 to 3); ABG HCO3 56 mEq/L (21-27); ABG Oxygen Saturation 92 % (95-98); ABG PCO2 86 mmHg (35-45); ABG PH 7.42 pH Units (7.32-7.45); ABG PO2 69 mmHg (85-104); ABG TCO2 > 50 mEq/L (20-26)
[2019-06-10] MEDS: Fluticasone Propionate Nasal 50 MCG/SPRAY BOTTLE NS SCH (11:53)
[2019-06-10] MEDS ORDERED: *HR* Warfarin 3 MG TABLET PO ONE (18:00)
[2019-06-11] MEDS: Ipratropium/Albuterol Neb 3 ML IH SCH ×6 (04:17→23:22)
[2019-06-11 07:09] LABS: Mean Platelet Volume 9.7 fL (9.4-12.4); Red Cell Distribution Width 15.8 % (11.5-14.5)
[2019-06-11 07:10] LABS: Hematocrit 37.5 % (37.5-50.1); Hemoglobin 10.4 g/dL (12.9-16.9); Mean Corpuscular HGB Conc 27.7 g/dL (31.6-35.5); Mean Corpuscular Hemoglobin 26.5 pg (28.0-33.3); Mean Corpuscular Volume 95.4 fL (83.0-100.0); Platelet Count 161 K/mcL (140-400); Red Blood Count 3.93 M/mcL (4.19-5.50); White Blood Count 13.5 K/mcL (4.3-11.1)
[2019-06-11 07:13] LABS: INR 2.3; Prothrombin Time 26.6 Seconds (9.4-12.1)
[2019-06-11] MEDS: Budesonide/Formoterol 80/4.5 1 PUFF INH IH SCH ×2 (07:35→20:24)
[2019-06-11 07:39] LABS: BUN/Creatinine Ratio 29 (6-26); Blood Urea Nitrogen 12 mg/dL (6-20); Calcium 8.8 mg/dL (8.6-10.3); Carbon Dioxide > 45 mEq/L (23-29); Chloride 89 mEq/L (98-107); Glucose 118 mg/dL (70-105); Osmolality,Calculated 305 (280-300); Sodium 147 mEq/L (136-145); eGFR For African Americans > 60 (> 60); eGFR For Non-African Americans > 60 (> 60)
[2019-06-11] MEDS: Diltiazem CD (24hr) 180 MG CAPSULE PO SCH (11:31)
[2019-06-11] MEDS: *HR* Amiodarone 200 MG TABLET PO SCH (11:31)
[2019-06-11] MEDS: carvediloL 6.25 MG TABLET PO SCH ×2 (11:32→20:48)
[2019-06-11] MEDS: rOPINIRole 0.25 MG TABLET PO SCH ×2 (11:33→20:48)
[2019-06-11] MEDS: Furosemide 40 MG/4 ML VIAL IVP SCH (11:34)
[2019-06-11] MEDS: Fluticasone Propionate Nasal 50 MCG/SPRAY BOTTLE NS SCH (11:35)
[2019-06-11] MEDS: Furosemide 40 MG TABLET PO SCH (15:51)
[2019-06-11] MEDS ORDERED: *HR* Warfarin 5 MG TABLET PO ONE (18:00)
[2019-06-12] MEDS: Ipratropium/Albuterol Neb 3 ML IH SCH ×6 (03:23→23:20)
[2019-06-12 04:24] LABS: Hemoglobin 9.8 g/dL (12.9-16.9); Mean Corpuscular HGB Conc 27.2 g/dL (31.6-35.5); Mean Corpuscular Hemoglobin 26.3 pg (28.0-33.3); Mean Corpuscular Volume 96.8 fL (83.0-100.0); Mean Platelet Volume 9.6 fL (9.4-12.4); Platelet Count 149 K/mcL (140-400); Red Blood Count 3.72 M/mcL (4.19-5.50); Red Cell Distribution Width 15.6 % (11.5-14.5)
[2019-06-12 04:29] LABS: INR 2.4; Prothrombin Time 27.5 Seconds (9.4-12.1)
[2019-06-12 04:52] LABS: BUN/Creatinine Ratio 29 (6-26); Blood Urea Nitrogen 14 mg/dL (6-20); Carbon Dioxide > 45 mEq/L (23-29); Chloride 89 mEq/L (98-107); Glucose 132 mg/dL (70-105); Osmolality,Calculated 302 (280-300); Potassium 4.2 mEq/L (3.5-5.1); Sodium 145 mEq/L (136-145); eGFR For African Americans > 60 (> 60); eGFR For Non-African Americans > 60 (> 60)
[2019-06-12] MEDS: rOPINIRole 0.25 MG TABLET PO SCH ×2 (10:37→21:44)
[2019-06-12] MEDS: *HR* Amiodarone 200 MG TABLET PO SCH (10:42)
[2019-06-12] MEDS: Fluticasone Propionate Nasal 50 MCG/SPRAY BOTTLE NS SCH (10:46)
[2019-06-12] MEDS: Furosemide 40 MG TABLET PO SCH ×2 (10:56→17:26)
[2019-06-12] MEDS: carvediloL 6.25 MG TABLET PO SCH ×2 (10:56→21:44)
[2019-06-12] MEDS: Diltiazem CD (24hr) 180 MG CAPSULE PO SCH (10:57)
[2019-06-12] MEDS: Budesonide/Formoterol 80/4.5 1 PUFF INH IH SCH ×2 (11:05→19:52)
[2019-06-12] MEDS ORDERED: *HR* Warfarin 5 MG TABLET PO ONE (18:00)
[2019-06-13 01:28] LABS: INR 2.3; Prothrombin Time 26.2 Seconds (9.4-12.1)
[2019-06-13 03:06] LABS: BUN/Creatinine Ratio 28 (6-26); Blood Urea Nitrogen 15 mg/dL (6-20); Calcium 8.8 mg/dL (8.6-10.3); Carbon Dioxide > 45 mEq/L (23-29); Chloride 87 mEq/L (98-107); Glucose 131 mg/dL (70-105); Magnesium 1.9 mg/dL (1.6-2.6); Osmolality,Calculated 305 (280-300); Phosphorous 3.2 mg/dL (2.7-4.5); Potassium 4.4 mEq/L (3.5-5.1); Sodium 146 mEq/L (136-145); eGFR For African Americans > 60 (> 60); eGFR For Non-African Americans > 60 (> 60)
[2019-06-13] MEDS: Ipratropium/Albuterol Neb 3 ML IH SCH ×5 (03:39→19:50)
[2019-06-13] MEDS: Budesonide/Formoterol 80/4.5 1 PUFF INH IH SCH ×2 (07:55→19:50)
[2019-06-13] MEDS: *HR* Amiodarone 200 MG TABLET PO SCH (08:41)
[2019-06-13] MEDS: rOPINIRole 0.25 MG TABLET PO SCH ×2 (08:41→20:45)
[2019-06-13] MEDS: Diltiazem CD (24hr) 180 MG CAPSULE PO SCH (08:41)
[2019-06-13] MEDS: carvediloL 6.25 MG TABLET PO SCH ×2 (08:41→20:45)
[2019-06-13] MEDS: Fluticasone Propionate Nasal 50 MCG/SPRAY BOTTLE NS SCH (08:43)
[2019-06-13] MEDS: Furosemide 40 MG TABLET PO SCH (08:43)
[2019-06-13] MEDS ORDERED: WARFARIN PO SCH (18:00)
[2019-06-14] MEDS: Ipratropium/Albuterol Neb 3 ML IH SCH ×7 (00:10→23:58)
[2019-06-14 06:50] LABS: INR 2.7; Prothrombin Time 30.3 Seconds (9.4-12.1)
[2019-06-14 07:05] LABS: BUN/Creatinine Ratio 25 (6-26); Blood Urea Nitrogen 14 mg/dL (6-20); Calcium 8.9 mg/dL (8.6-10.3); Carbon Dioxide > 45 mEq/L (23-29); Chloride 91 mEq/L (98-107); Glucose 103 mg/dL (70-105); Osmolality,Calculated 299 (280-300); Phosphorous 2.9 mg/dL (2.7-4.5); Potassium 4.3 mEq/L (3.5-5.1); Sodium 144 mEq/L (136-145); eGFR For African Americans > 60 (> 60); eGFR For Non-African Americans > 60 (> 60)
[2019-06-14] MEDS ORDERED: *HR* LORazepam 2 MG/ML VIAL IVP ONE (07:12)
[2019-06-14] MEDS: Budesonide/Formoterol 80/4.5 1 PUFF INH IH SCH ×2 (07:40→19:37)
[2019-06-14] MEDS: carvediloL 6.25 MG TABLET PO SCH ×2 (11:05→20:38)
[2019-06-14] MEDS: *HR* Amiodarone 200 MG TABLET PO SCH (11:06)
[2019-06-14] MEDS: Diltiazem CD (24hr) 180 MG CAPSULE PO SCH (11:06)
[2019-06-14] MEDS: Fluticasone Propionate Nasal 50 MCG/SPRAY BOTTLE NS SCH (11:06)
[2019-06-14] MEDS: rOPINIRole 0.25 MG TABLET PO SCH ×2 (11:07→20:38)
[2019-06-14] MEDS ORDERED: *HR* Dextrose 50 % in Water (Syg) 50 ML SYRINGE IVP PRN (11:34)
[2019-06-14] MEDS ORDERED: D5% in Water 1,000 ML IVC PRN (11:34)
[2019-06-14] MEDS ORDERED: Dextrose Gel 15 GM/37.5 ML TUBE PO PRN ×2 (11:34)
[2019-06-14 11:47] LABS: ABG Base Excess 25 mEq/L (-2 to 3); ABG HCO3 59 mEq/L (21-27); ABG Oxygen Saturation 91 % (95-98); ABG PCO2 141 mmHg (35-45); ABG PH 7.23 pH Units (7.32-7.45); ABG PO2 81 mmHg (85-104); ABG TCO2 > 50 mEq/L (20-26)
[2019-06-14] MEDS: MethylPREDNISolone 40 MG/ML VIAL IVP SCH ×2 (12:58→23:53)
[2019-06-14] MEDS: Insulin LISPRO 300 UNITS/3 ML VIAL SQ SCH ×3 (13:43→23:53)
[2019-06-14] MEDS: Bumetanide 1 MG/4 ML VIAL IVP SCH (15:30)
[2019-06-14] MEDS ORDERED: Insulin LISPRO 300 UNITS/3 ML VIAL SQ SCH (16:30)
[2019-06-14 16:55] LABS: ABG Base Excess 18 mEq/L (-2 to 3); ABG HCO3 49 mEq/L (21-27); ABG Oxygen Saturation 84 % (95-98); ABG PCO2 95 mmHg (35-45); ABG PH 7.32 pH Units (7.32-7.45); ABG PO2 58 mmHg (85-104); ABG TCO2 > 50 mEq/L (20-26); Blood Gas Modality NIV; Blood Gas VT 550 cc
[2019-06-14] MEDS ORDERED: Bumetanide 1 MG/4 ML VIAL IVP SCH (17:00)
[2019-06-14] MEDS ORDERED: [UNRECOGNIZED DRUG - OTHER] IV ONE (17:08)
[2019-06-14] MEDS ORDERED: WATER FOR INJ IV ONE (17:08)
[2019-06-14] MEDS ORDERED: *HR* Warfarin 4 MG TABLET PO ONE (18:00)
[2019-06-15] MEDS ORDERED: Ketorolac 15 MG/ML VIAL IVP PRN (01:21)
[2019-06-15] MEDS ORDERED: *HR* LORazepam 2 MG/ML VIAL IVP ONE (01:22)
[2019-06-15 04:02] LABS: INR 2.7; Prothrombin Time 30.5 Seconds (9.4-12.1)
[2019-06-15 04:11] LABS: Hematocrit 30.2 % (37.5-50.1); Hemoglobin 8.9 g/dL (12.9-16.9); Immature Granulocytes % 0.6 % (0-4); Lymphocytes # 0.3 K/mcL (0.6-4.6); Lymphocytes % 3.4 %; Mean Corpuscular HGB Conc 29.5 g/dL (31.6-35.5); Mean Corpuscular Hemoglobin 26.6 pg (28.0-33.3); Mean Platelet Volume 9.6 fL (9.4-12.4); Monocytes # 0.1 K/mcL (0.0-1.3); Monocytes % 1.2 %; Neutrophils # 8.2 K/mcL (1.6-8.9); Platelet Count 143 K/mcL (140-400); Red Blood Count 3.35 M/mcL (4.19-5.50); Segmented Neutrophils % 94.8 %; White Blood Count 8.7 K/mcL (4.3-11.1)
[2019-06-15] MEDS: Ipratropium/Albuterol Neb 3 ML IH SCH ×5 (04:12→19:35)
[2019-06-15 04:22] LABS: BUN/Creatinine Ratio 34 (6-26); Blood Urea Nitrogen 17 mg/dL (6-20); Carbon Dioxide 44 mEq/L (23-29); Chloride 93 mEq/L (98-107); Glucose 134 mg/dL (70-105); Osmolality,Calculated 294 (280-300); Potassium 4.3 mEq/L (3.5-5.1); Sodium 140 mEq/L (136-145); eGFR For African Americans > 60 (> 60); eGFR For Non-African Americans > 60 (> 60)
[2019-06-15 05:01] LABS: Mean Corpuscular Volume 90.1 fL (83.0-100.0)
[2019-06-15 05:39] LABS: ABG Base Excess 18 mEq/L (-2 to 3); ABG HCO3 48 mEq/L (21-27); ABG Oxygen Saturation 92 % (95-98); ABG PCO2 94 mmHg (35-45); ABG PH 7.32 pH Units (7.32-7.45); ABG PO2 76 mmHg (85-104); ABG TCO2 > 50 mEq/L (20-26); Blood Gas Modality AVAPS; Blood Gas VT 550 cc
[2019-06-15] MEDS: Insulin LISPRO 300 UNITS/3 ML VIAL SQ SCH ×4 (06:15→23:35)
[2019-06-15] MEDS: Budesonide/Formoterol 80/4.5 1 PUFF INH IH SCH ×2 (07:14→19:35)
[2019-06-15] MEDS: MethylPREDNISolone 40 MG/ML VIAL IVP SCH ×3 (08:55→23:37)
[2019-06-15] MEDS: Bumetanide 1 MG/4 ML VIAL IVP SCH ×2 (08:55→16:39)
[2019-06-15] MEDS: Diltiazem CD (24hr) 180 MG CAPSULE PO SCH (09:03)
[2019-06-15] MEDS: carvediloL 6.25 MG TABLET PO SCH ×2 (09:04→19:21)
[2019-06-15] MEDS: rOPINIRole 0.25 MG TABLET PO SCH ×2 (09:04→19:21)
[2019-06-15] MEDS: *HR* Amiodarone 200 MG TABLET PO SCH (09:04)
[2019-06-15] MEDS: Fluticasone Propionate Nasal 50 MCG/SPRAY BOTTLE NS SCH (09:04)
[2019-06-15 09:24] LABS: Magnesium 1.9 mg/dL (1.6-2.6)
[2019-06-15 10:23] LABS: Adenovirus Not Detected (Not Detect); Bordetella Pertussis Not Detected (Not Detect); Chlamydophila pneumoniae Not Detected (Not Detect); Coronavirus 229E Not Detected (Not Detect); Coronavirus HKU1 Not Detected (Not Detect); Coronavirus NL63 Not Detected (Not Detect); Coronavirus OC43 Not Detected (Not Detect); Human Metapneumovirus Not Detected (Not Detect); Human Rhinovirus/Enterovirus Not Detected (Not Detect); Influenza A Subtype 2009 H1 Not Detected (Not Detect); Influenza A Untypeable Not Detected (Not Detect); Influenza B Not Detected (Not Detect); Mycoplasma pneumoniae Not Detected (Not Detect); Parainfluenza Virus 1 Not Detected (Not Detect); Parainfluenza Virus 2 Not Detected (Not Detect); Parainfluenza Virus 3 Not Detected (Not Detect); Parainfluenza Virus 4 Not Detected (Not Detect); Respiratory Syncytial Virus Not Detected (Not Detect)
[2019-06-15] MEDS ORDERED: *HR* Warfarin 4 MG TABLET PO ONE (18:00)
[2019-06-16] MEDS: Ipratropium/Albuterol Neb 3 ML IH SCH ×7 (00:08→23:58)
[2019-06-16 03:50] LABS: Basophils % 0.1 %; Hematocrit 31.4 % (37.5-50.1); Hemoglobin 9.4 g/dL (12.9-16.9); Immature Granulocytes % 0.6 % (0-4); Lymphocytes # 0.2 K/mcL (0.6-4.6); Lymphocytes % 3.6 %; Mean Corpuscular HGB Conc 29.9 g/dL (31.6-35.5); Mean Corpuscular Hemoglobin 26.5 pg (28.0-33.3); Mean Corpuscular Volume 88.5 fL (83.0-100.0); Mean Platelet Volume 9.9 fL (9.4-12.4); Monocytes # 0.2 K/mcL (0.0-1.3); Monocytes % 3.4 %; Neutrophils # 6.2 K/mcL (1.6-8.9); Platelet Count 156 K/mcL (140-400); Red Blood Count 3.55 M/mcL (4.19-5.50); Segmented Neutrophils % 92.3 %; White Blood Count 6.7 K/mcL (4.3-11.1)
[2019-06-16 03:58] LABS: INR 2.8; Prothrombin Time 32.3 Seconds (9.4-12.1)
[2019-06-16 04:23] LABS: BUN/Creatinine Ratio 47 (6-26); Blood Urea Nitrogen 27 mg/dL (6-20); Calcium 9.1 mg/dL (8.6-10.3); Carbon Dioxide > 45 mEq/L (23-29); Chloride 93 mEq/L (98-107); Glucose 141 mg/dL (70-105); Magnesium 2.3 mg/dL (1.6-2.6); Osmolality,Calculated 303 (280-300); Potassium 3.9 mEq/L (3.5-5.1); Sodium 143 mEq/L (136-145); eGFR For African Americans > 60 (> 60); eGFR For Non-African Americans > 60 (> 60)
[2019-06-16] MEDS: Insulin LISPRO 300 UNITS/3 ML VIAL SQ SCH ×3 (06:02→18:22)
[2019-06-16] MEDS: Budesonide/Formoterol 80/4.5 1 PUFF INH IH SCH ×2 (07:35→19:59)
[2019-06-16 08:12] LABS: ABG Base Excess 23 mEq/L (-2 to 3); ABG HCO3 53 mEq/L (21-27); ABG Oxygen Saturation 95 % (95-98); ABG PCO2 95 mmHg (35-45); ABG PH 7.35 pH Units (7.32-7.45); ABG PO2 85 mmHg (85-104); ABG TCO2 > 50 mEq/L (20-26); Blood Gas Modality NIV; Blood Gas VT 550 cc
[2019-06-16] MEDS: Fluticasone Propionate Nasal 50 MCG/SPRAY BOTTLE NS SCH (08:47)
[2019-06-16] MEDS: Bumetanide 1 MG/4 ML VIAL IVP SCH ×2 (08:47→17:45)
[2019-06-16] MEDS: MethylPREDNISolone 40 MG/ML VIAL IVP SCH ×2 (08:47→17:41)
[2019-06-16] MEDS: rOPINIRole 0.25 MG TABLET PO SCH ×2 (09:19→20:31)
[2019-06-16] MEDS: carvediloL 6.25 MG TABLET PO SCH ×2 (09:19→20:33)
[2019-06-16] MEDS: Diltiazem CD (24hr) 180 MG CAPSULE PO SCH (09:20)
[2019-06-16] MEDS: *HR* Amiodarone 200 MG TABLET PO SCH (09:20)
[2019-06-16] MEDS ORDERED: Ketorolac 15 MG/ML VIAL IVP PRN (09:46)
[2019-06-16] MEDS ORDERED: Dextrose Gel 15 GM/37.5 ML TUBE PO PRN ×2 (09:46)
[2019-06-16] MEDS ORDERED: Ondansetron 4 MG/2 ML VIAL IVP PRN (09:46)
[2019-06-16] MEDS ORDERED: Warfarin perPT PO PRN (09:46)
[2019-06-16] MEDS ORDERED: D5% in Water 1,000 ML IVC PRN (09:46)
[2019-06-16] MEDS ORDERED: *HR* Dextrose 50 % in Water (Syg) 50 ML SYRINGE IVP PRN (09:46)
[2019-06-16] MEDS ORDERED: Naloxone 0.4 MG/ML INJ IVP PRN (09:46)
[2019-06-16] MEDS: tiZANidine 4 MG TABLET PO PRN (20:32)
[2019-06-17] MEDS: MethylPREDNISolone 40 MG/ML VIAL IVP SCH ×3 (00:23→17:11)
[2019-06-17] MEDS: Insulin LISPRO 300 UNITS/3 ML VIAL SQ SCH ×4 (00:27→17:11)
[2019-06-17] MEDS: Ipratropium/Albuterol Neb 3 ML IH SCH ×5 (03:40→20:30)
[2019-06-17 04:03] LABS: INR 3.1; Prothrombin Time 35.3 Seconds (9.4-12.1)
[2019-06-17] MEDS: Budesonide/Formoterol 80/4.5 1 PUFF INH IH SCH ×2 (07:42→20:30)
[2019-06-17] MEDS: carvediloL 6.25 MG TABLET PO SCH ×2 (08:46→20:06)
[2019-06-17] MEDS: Diltiazem CD (24hr) 180 MG CAPSULE PO SCH (08:46)
[2019-06-17] MEDS: rOPINIRole 0.25 MG TABLET PO SCH ×2 (08:47→22:04)
[2019-06-17] MEDS: *HR* Amiodarone 200 MG TABLET PO SCH (08:47)
[2019-06-17] MEDS: Bumetanide 1 MG/4 ML VIAL IVP SCH ×2 (08:48→17:11)
[2019-06-17] MEDS: Fluticasone Propionate Nasal 50 MCG/SPRAY BOTTLE NS SCH (08:49)
[2019-06-17] MEDS: Acetaminophen 325 MG TABLET PO PRN (20:16)
[2019-06-18] MEDS: Ipratropium/Albuterol Neb 3 ML IH SCH ×6 (00:22→20:03)
[2019-06-18] MEDS: Insulin LISPRO 300 UNITS/3 ML VIAL SQ SCH ×4 (01:17→18:03)
[2019-06-18] MEDS: MethylPREDNISolone 40 MG/ML VIAL IVP SCH ×3 (01:25→19:59)
[2019-06-18 06:17] LABS: Hematocrit 33.1 % (37.5-50.1); Hemoglobin 9.8 g/dL (12.9-16.9); Mean Corpuscular HGB Conc 29.6 g/dL (31.6-35.5); Mean Corpuscular Hemoglobin 26.5 pg (28.0-33.3); Mean Corpuscular Volume 89.5 fL (83.0-100.0); Mean Platelet Volume 10.1 fL (9.4-12.4); Platelet Count 153 K/mcL (140-400); Red Cell Distribution Width 14.9 % (11.5-14.5)
[2019-06-18 06:18] LABS: White Blood Count 10.5 K/mcL (4.3-11.1)
[2019-06-18 06:32] LABS: INR 1.9; Prothrombin Time 21.9 Seconds (9.4-12.1)
[2019-06-18] MEDS: Budesonide/Formoterol 80/4.5 1 PUFF INH IH SCH ×2 (07:46→20:03)
[2019-06-18] MEDS: rOPINIRole 0.25 MG TABLET PO SCH ×2 (10:00→21:40)
[2019-06-18] MEDS: Diltiazem CD (24hr) 180 MG CAPSULE PO SCH (10:01)
[2019-06-18] MEDS: *HR* Amiodarone 200 MG TABLET PO SCH (10:02)
[2019-06-18] MEDS: Bumetanide 1 MG/4 ML VIAL IVP SCH ×2 (10:03→16:40)
[2019-06-18] MEDS: carvediloL 6.25 MG TABLET PO SCH ×2 (10:03→19:59)
[2019-06-18] MEDS ORDERED: MethylPREDNISolone 40 MG/ML VIAL IVP SCH (10:30)
[2019-06-18 11:29] LABS: Alanine Aminotransferase 9 Units/L (7-52); Albumin 3.2 g/dL (3.5-5.7); Albumin/Globulin Ratio 1.4 (1.1-2.2); Alkaline Phosphatase 65 Units/L (34-104); Aspartate Amino Transferase 9 Units/L (13-39); BUN/Creatinine Ratio 41 (6-26); Bilirubin,Total 0.4 mg/dL (0.3-1.0); Blood Urea Nitrogen 34 mg/dL (6-20); Calcium 8.3 mg/dL (8.6-10.3); Carbon Dioxide > 45 mEq/L (23-29); Chloride 89 mEq/L (98-107); Globulin 2.3 g/dL (2.4-3.5); Glucose 265 mg/dL (70-105); Osmolality,Calculated 317 (280-300); Potassium 3.9 mEq/L (3.5-5.1); Sodium 145 mEq/L (136-145); Total Protein 5.5 g/dL (6.4-8.9); eGFR For African Americans > 60 (> 60); eGFR For Non-African Americans > 60 (> 60)
[2019-06-18] MEDS: Fluticasone Propionate Nasal 50 MCG/SPRAY BOTTLE NS SCH (12:53)
[2019-06-18] MEDS ORDERED: Ketorolac 15 MG/ML VIAL IVP PRN (14:53)
[2019-06-18] MEDS ORDERED: *HR* Warfarin 5 MG TABLET PO ONE (18:00)
[2019-06-18] MEDS: Warfarin perPT PO SCH (18:02)
[2019-06-19] MEDS: Ipratropium/Albuterol Neb 3 ML IH SCH ×7 (00:05→23:12)
[2019-06-19] MEDS ORDERED: *HR* LORazepam 2 MG/ML VIAL IVP ONE (02:27)
[2019-06-19] MEDS: Insulin LISPRO 300 UNITS/3 ML VIAL SQ SCH ×4 (02:29→18:16)
[2019-06-19 03:19] LABS: INR 1.5; Prothrombin Time 16.7 Seconds (9.4-12.1)
[2019-06-19 04:17] LABS: BUN/Creatinine Ratio 31 (6-26); Blood Urea Nitrogen 28 mg/dL (6-20); Calcium 8.5 mg/dL (8.6-10.3); Carbon Dioxide > 45 mEq/L (23-29); Chloride 89 mEq/L (98-107); Glucose 239 mg/dL (70-105); Magnesium 1.9 mg/dL (1.6-2.6); Osmolality,Calculated 303 (280-300); Phosphorous 1.5 mg/dL (2.7-4.5); Sodium 140 mEq/L (136-145); eGFR For African Americans > 60 (> 60); eGFR For Non-African Americans > 60 (> 60)
[2019-06-19] MEDS: Budesonide/Formoterol 80/4.5 1 PUFF INH IH SCH ×2 (07:46→20:49)
[2019-06-19] MEDS: carvediloL 6.25 MG TABLET PO SCH ×2 (09:43→19:44)
[2019-06-19] MEDS: *HR* Amiodarone 200 MG TABLET PO SCH (09:43)
[2019-06-19] MEDS: Diltiazem CD (24hr) 180 MG CAPSULE PO SCH (09:43)
[2019-06-19] MEDS: rOPINIRole 0.25 MG TABLET PO SCH ×2 (09:44→19:44)
[2019-06-19] MEDS: Bumetanide 1 MG/4 ML VIAL IVP SCH ×2 (09:44→18:15)
[2019-06-19] MEDS: MethylPREDNISolone 40 MG/ML VIAL IVP SCH ×2 (09:44→19:44)
[2019-06-19] MEDS: Fluticasone Propionate Nasal 50 MCG/SPRAY BOTTLE NS SCH (09:47)
[2019-06-19] MEDS ORDERED: *HR* Warfarin 3 MG TABLET PO ONE (18:00)
[2019-06-20] MEDS: Insulin LISPRO 300 UNITS/3 ML VIAL SQ SCH ×5 (00:53→22:43)
[2019-06-20 00:54] LABS: Hematocrit 35.5 % (37.5-50.1); Hemoglobin 10.4 g/dL (12.9-16.9); Mean Corpuscular HGB Conc 29.3 g/dL (31.6-35.5); Mean Corpuscular Hemoglobin 26.5 pg (28.0-33.3); Mean Corpuscular Volume 90.3 fL (83.0-100.0); Mean Platelet Volume 9.7 fL (9.4-12.4); Platelet Count 158 K/mcL (140-400); Red Blood Count 3.93 M/mcL (4.19-5.50); Red Cell Distribution Width 14.7 % (11.5-14.5); White Blood Count 17.4 K/mcL (4.3-11.1)
[2019-06-20 01:01] LABS: INR 1.5; Prothrombin Time 16.7 Seconds (9.4-12.1)
[2019-06-20 01:53] LABS: BUN/Creatinine Ratio 47 (6-26); Blood Urea Nitrogen 32 mg/dL (6-20); Calcium 8.7 mg/dL (8.6-10.3); Carbon Dioxide > 45 mEq/L (23-29); Chloride 90 mEq/L (98-107); Glucose 223 mg/dL (70-105); Magnesium 2.1 mg/dL (1.6-2.6); Osmolality,Calculated 304 (280-300); Potassium 4.7 mEq/L (3.5-5.1); Sodium 140 mEq/L (136-145); eGFR For African Americans > 60 (> 60); eGFR For Non-African Americans > 60 (> 60)
[2019-06-20] MEDS: Ipratropium/Albuterol Neb 3 ML IH SCH ×5 (04:50→20:03)
[2019-06-20] MEDS: Warfarin perPT PO SCH ×2 (07:26→17:23)
[2019-06-20] MEDS: Budesonide/Formoterol 80/4.5 1 PUFF INH IH SCH ×2 (08:01→20:03)
[2019-06-20] MEDS: Bumetanide 1 MG/4 ML VIAL IVP SCH ×2 (08:21→17:16)
[2019-06-20] MEDS: carvediloL 6.25 MG TABLET PO SCH ×2 (08:22→22:42)
[2019-06-20] MEDS: *HR* Amiodarone 200 MG TABLET PO SCH (08:22)
[2019-06-20] MEDS: rOPINIRole 0.25 MG TABLET PO SCH ×2 (08:22→22:47)
[2019-06-20] MEDS: Diltiazem CD (24hr) 180 MG CAPSULE PO SCH (08:22)
[2019-06-20] MEDS: Fluticasone Propionate Nasal 50 MCG/SPRAY BOTTLE NS SCH (08:25)
[2019-06-20] MEDS: predniSONE 20 MG TABLET PO SCH (08:26)
[2019-06-20] MEDS ORDERED: *HR* Warfarin 3 MG TABLET PO ONE (18:00)
[2019-06-20] MEDS ORDERED: Insulin DETEMIR 100 UNIT/ML X5UNITS SQ SCH (21:00)
[2019-06-20] MEDS: Acetaminophen 325 MG TABLET PO PRN (22:47)
[2019-06-21] MEDS: Ipratropium/Albuterol Neb 3 ML IH SCH ×7 (00:32→23:37)
[2019-06-21] MEDS ORDERED: *HR* LORazepam 0.5 MG TABLET PO ONE (02:04)
[2019-06-21 06:27] LABS: Hematocrit 34.4 % (37.5-50.1)
[2019-06-21 06:28] LABS: Hemoglobin 10.2 g/dL (12.9-16.9); Mean Corpuscular HGB Conc 29.7 g/dL (31.6-35.5); Mean Corpuscular Hemoglobin 26.8 pg (28.0-33.3); Mean Corpuscular Volume 90.3 fL (83.0-100.0); Mean Platelet Volume 9.9 fL (9.4-12.4); Platelet Count 171 K/mcL (140-400); Red Blood Count 3.81 M/mcL (4.19-5.50); Red Cell Distribution Width 14.9 % (11.5-14.5); White Blood Count 13.2 K/mcL (4.3-11.1)
[2019-06-21 06:30] LABS: INR 1.7; Prothrombin Time 19.8 Seconds (9.4-12.1)
[2019-06-21 06:48] LABS: BUN/Creatinine Ratio 48 (6-26); Blood Urea Nitrogen 32 mg/dL (6-20); Calcium 8.9 mg/dL (8.6-10.3); Carbon Dioxide > 45 mEq/L (23-29); Chloride 88 mEq/L (98-107); Glucose 114 mg/dL (70-105); Osmolality,Calculated 304 (280-300); Potassium 4.4 mEq/L (3.5-5.1); Sodium 143 mEq/L (136-145); eGFR For African Americans > 60 (> 60); eGFR For Non-African Americans > 60 (> 60)
[2019-06-21] MEDS: Budesonide/Formoterol 80/4.5 1 PUFF INH IH SCH ×2 (07:24→19:59)
[2019-06-21] MEDS: Insulin LISPRO 300 UNITS/3 ML VIAL SQ SCH ×4 (09:04→22:03)
[2019-06-21] MEDS: Bumetanide 1 MG/4 ML VIAL IVP SCH ×2 (10:18→17:06)
[2019-06-21] MEDS: Acetaminophen 325 MG TABLET PO PRN (10:18)
[2019-06-21] MEDS: Diltiazem CD (24hr) 180 MG CAPSULE PO SCH (10:18)
[2019-06-21] MEDS: rOPINIRole 0.25 MG TABLET PO SCH ×2 (10:19→21:58)
[2019-06-21] MEDS: tiZANidine 4 MG TABLET PO PRN (10:19)
[2019-06-21] MEDS: predniSONE 20 MG TABLET PO SCH (10:19)
[2019-06-21] MEDS: carvediloL 6.25 MG TABLET PO SCH ×2 (10:20→21:58)
[2019-06-21] MEDS: *HR* Amiodarone 200 MG TABLET PO SCH (10:20)
[2019-06-21] MEDS: Fluticasone Propionate Nasal 50 MCG/SPRAY BOTTLE NS SCH (10:21)
[2019-06-21] MEDS ORDERED: *HR* Warfarin 3 MG TABLET PO ONE (18:00)
[2019-06-21] MEDS: Insulin DETEMIR 100 UNIT/ML X5UNITS SQ SCH (22:01)
[2019-06-21] MEDS: Warfarin perPT PO SCH (22:06)
[2019-06-22 01:47] LABS: Hematocrit 34.3 % (37.5-50.1); Hemoglobin 9.5 g/dL (12.9-16.9); Mean Corpuscular HGB Conc 27.7 g/dL (31.6-35.5); Mean Corpuscular Hemoglobin 26.3 pg (28.0-33.3); Mean Platelet Volume 10.1 fL (9.4-12.4); Platelet Count 187 K/mcL (140-400); Red Blood Count 3.61 M/mcL (4.19-5.50); Red Cell Distribution Width 14.8 % (11.5-14.5); White Blood Count 10.9 K/mcL (4.3-11.1)
[2019-06-22 01:55] LABS: INR 2.2; Prothrombin Time 25.5 Seconds (9.4-12.1)
[2019-06-22 03:12] LABS: BUN/Creatinine Ratio 47 (6-26); Blood Urea Nitrogen 31 mg/dL (6-20); Calcium 8.6 mg/dL (8.6-10.3); Carbon Dioxide > 45 mEq/L (23-29); Chloride 90 mEq/L (98-107); Glucose 197 mg/dL (70-105); Osmolality,Calculated 306 (280-300); Potassium 4.8 mEq/L (3.5-5.1); Sodium 142 mEq/L (136-145); eGFR For African Americans > 60 (> 60); eGFR For Non-African Americans > 60 (> 60)
[2019-06-22] MEDS: Ipratropium/Albuterol Neb 3 ML IH SCH ×6 (04:42→23:14)
[2019-06-22] MEDS: Budesonide/Formoterol 80/4.5 1 PUFF INH IH SCH ×2 (07:44→20:13)
[2019-06-22] MEDS: Insulin LISPRO 300 UNITS/3 ML VIAL SQ SCH ×4 (09:30→22:03)
[2019-06-22] MEDS: Fluticasone Propionate Nasal 50 MCG/SPRAY BOTTLE NS SCH (09:49)
[2019-06-22] MEDS: *HR* Amiodarone 200 MG TABLET PO SCH (09:49)
[2019-06-22] MEDS: carvediloL 6.25 MG TABLET PO SCH ×2 (09:49→22:03)
[2019-06-22] MEDS: predniSONE 20 MG TABLET PO SCH (09:50)
[2019-06-22] MEDS: rOPINIRole 0.25 MG TABLET PO SCH ×2 (09:50→22:03)
[2019-06-22] MEDS: Bumetanide 1 MG/4 ML VIAL IVP SCH ×2 (09:50→17:10)
[2019-06-22] MEDS: Diltiazem CD (24hr) 180 MG CAPSULE PO SCH (09:50)
[2019-06-22] MEDS: Warfarin perPT PO SCH (17:22)
[2019-06-22] MEDS ORDERED: *HR* Warfarin 3 MG TABLET PO ONE (18:00)
[2019-06-22] MEDS: Insulin DETEMIR 100 UNIT/ML X5UNITS SQ SCH (22:02)
[2019-06-23] MEDS: tiZANidine 4 MG TABLET PO PRN ×3 (01:41→23:57)
[2019-06-23] MEDS: Ipratropium/Albuterol Neb 3 ML IH SCH ×6 (03:31→23:10)
[2019-06-23 04:24] LABS: Hematocrit 32.7 % (37.5-50.1); Hemoglobin 9.5 g/dL (12.9-16.9); Mean Corpuscular HGB Conc 29.1 g/dL (31.6-35.5); Mean Corpuscular Hemoglobin 26.9 pg (28.0-33.3); Mean Corpuscular Volume 92.6 fL (83.0-100.0); Mean Platelet Volume 9.9 fL (9.4-12.4); Platelet Count 233 K/mcL (140-400); Red Blood Count 3.53 M/mcL (4.19-5.50); Red Cell Distribution Width 14.6 % (11.5-14.5); White Blood Count 8.4 K/mcL (4.3-11.1)
[2019-06-23 04:44] LABS: BUN/Creatinine Ratio 46 (6-26); Blood Urea Nitrogen 26 mg/dL (6-20); Calcium 8.5 mg/dL (8.6-10.3); Carbon Dioxide > 45 mEq/L (23-29); Chloride 90 mEq/L (98-107); Glucose 150 mg/dL (70-105); Osmolality,Calculated 302 (280-300); Potassium 4.8 mEq/L (3.5-5.1); Sodium 142 mEq/L (136-145); eGFR For African Americans > 60 (> 60); eGFR For Non-African Americans > 60 (> 60)
[2019-06-23 05:28] LABS: INR 3.4; Prothrombin Time 38.9 Seconds (9.4-12.1)
[2019-06-23] MEDS: Insulin LISPRO 300 UNITS/3 ML VIAL SQ SCH ×4 (07:44→20:58)
[2019-06-23] MEDS: Budesonide/Formoterol 80/4.5 1 PUFF INH IH SCH ×2 (08:10→19:48)
[2019-06-23] MEDS: predniSONE 20 MG TABLET PO SCH (10:05)
[2019-06-23] MEDS: Diltiazem CD (24hr) 180 MG CAPSULE PO SCH (10:05)
[2019-06-23] MEDS: carvediloL 6.25 MG TABLET PO SCH ×2 (10:05→20:57)
[2019-06-23] MEDS: Bumetanide 1 MG/4 ML VIAL IVP SCH ×2 (10:05→15:50)
[2019-06-23] MEDS: rOPINIRole 0.25 MG TABLET PO SCH ×2 (10:06→20:57)
[2019-06-23] MEDS: *HR* Amiodarone 200 MG TABLET PO SCH (10:06)
[2019-06-23] MEDS: Fluticasone Propionate Nasal 50 MCG/SPRAY BOTTLE NS SCH (10:06)
[2019-06-23] MEDS: Warfarin perPT PO SCH (17:47)
[2019-06-23] MEDS: Insulin DETEMIR 100 UNIT/ML X5UNITS SQ SCH (20:58)
[2019-06-24] MEDS: Ipratropium/Albuterol Neb 3 ML IH SCH ×5 (04:13→20:11)
[2019-06-24 04:20] LABS: INR 3.3; Prothrombin Time 37.5 Seconds (9.4-12.1)
[2019-06-24] MEDS: Budesonide/Formoterol 80/4.5 1 PUFF INH IH SCH ×2 (07:25→20:11)
[2019-06-24] MEDS: Bumetanide 1 MG/4 ML VIAL IVP SCH ×2 (09:11→17:29)
[2019-06-24] MEDS: Diltiazem CD (24hr) 180 MG CAPSULE PO SCH (09:12)
[2019-06-24] MEDS: predniSONE 20 MG TABLET PO SCH (09:12)
[2019-06-24] MEDS: rOPINIRole 0.25 MG TABLET PO SCH ×2 (09:12→21:03)
[2019-06-24] MEDS: Insulin LISPRO 300 UNITS/3 ML VIAL SQ SCH ×4 (09:12→21:04)
[2019-06-24] MEDS: Fluticasone Propionate Nasal 50 MCG/SPRAY BOTTLE NS SCH (09:13)
[2019-06-24] MEDS: *HR* Amiodarone 200 MG TABLET PO SCH (09:13)
[2019-06-24] MEDS: carvediloL 6.25 MG TABLET PO SCH ×2 (09:13→21:03)
[2019-06-24] MEDS: Warfarin perPT PO SCH (17:13)
[2019-06-24] MEDS: Insulin DETEMIR 100 UNIT/ML X5UNITS SQ SCH (21:03)
[2019-06-24] MEDS: tiZANidine 4 MG TABLET PO PRN (23:46)
[2019-06-25] MEDS: Ipratropium/Albuterol Neb 3 ML IH SCH ×7 (00:43→23:12)
[2019-06-25 05:15] LABS: INR 2.1; Prothrombin Time 23.4 Seconds (9.4-12.1)
[2019-06-25] MEDS: Budesonide/Formoterol 80/4.5 1 PUFF INH IH SCH ×2 (07:34→19:59)
[2019-06-25] MEDS ORDERED: Aminoglycoside Consult 1 EACH MC ONE (08:46)
[2019-06-25] MEDS: Bumetanide 1 MG/4 ML VIAL IVP SCH ×2 (08:48→16:49)
[2019-06-25] MEDS: Diltiazem CD (24hr) 180 MG CAPSULE PO SCH (08:49)
[2019-06-25] MEDS: predniSONE 20 MG TABLET PO SCH (08:49)
[2019-06-25] MEDS: *HR* Amiodarone 200 MG TABLET PO SCH (08:49)
[2019-06-25] MEDS: rOPINIRole 0.25 MG TABLET PO SCH ×2 (08:49→21:11)
[2019-06-25] MEDS: carvediloL 6.25 MG TABLET PO SCH ×2 (08:49→21:10)
[2019-06-25] MEDS: Insulin LISPRO 300 UNITS/3 ML VIAL SQ SCH ×4 (08:55→21:11)
[2019-06-25] MEDS: Fluticasone Propionate Nasal 50 MCG/SPRAY BOTTLE NS SCH (08:56)
[2019-06-25 11:59] LABS: BUN/Creatinine Ratio 32 (6-26); Blood Urea Nitrogen 23 mg/dL (6-20); Calcium 8.9 mg/dL (8.6-10.3); Carbon Dioxide > 45 mEq/L (23-29); Chloride 86 mEq/L (98-107); Glucose 210 mg/dL (70-105); Osmolality,Calculated 308 (280-300); Potassium 4.4 mEq/L (3.5-5.1); Sodium 144 mEq/L (136-145); eGFR For African Americans > 60 (> 60); eGFR For Non-African Americans > 60 (> 60)
[2019-06-25] MEDS ORDERED: *HR* Warfarin 3 MG TABLET PO ONE (18:00)
[2019-06-25] MEDS: Warfarin perPT PO SCH (18:20)
[2019-06-25] MEDS: Insulin DETEMIR 100 UNIT/ML X5UNITS SQ SCH (21:11)
[2019-06-25] MEDS: GuaiFENesin/Dextromethorphan TABLET PO SCH (21:11)
[2019-06-26] MEDS: Ipratropium/Albuterol Neb 3 ML IH SCH ×5 (04:26→20:12)
[2019-06-26 06:35] LABS: Hematocrit 35.8 % (37.5-50.1); Hemoglobin 10.2 g/dL (12.9-16.9); Mean Corpuscular HGB Conc 28.5 g/dL (31.6-35.5); Mean Corpuscular Volume 91.3 fL (83.0-100.0); Mean Platelet Volume 9.2 fL (9.4-12.4); Platelet Count 343 K/mcL (140-400); Red Blood Count 3.92 M/mcL (4.19-5.50); Red Cell Distribution Width 14.7 % (11.5-14.5)
[2019-06-26 06:37] LABS: INR 1.6; Prothrombin Time 18.6 Seconds (9.4-12.1)
[2019-06-26 07:06] LABS: BUN/Creatinine Ratio 36 (6-26); Blood Urea Nitrogen 25 mg/dL (6-20); Calcium 8.9 mg/dL (8.6-10.3); Carbon Dioxide > 45 mEq/L (23-29); Chloride 87 mEq/L (98-107); Glucose 112 mg/dL (70-105); Magnesium 2.1 mg/dL (1.6-2.6); Osmolality,Calculated 309 (280-300); Sodium 147 mEq/L (136-145); eGFR For African Americans > 60 (> 60); eGFR For Non-African Americans > 60 (> 60)
[2019-06-26] MEDS: Budesonide/Formoterol 80/4.5 1 PUFF INH IH SCH ×2 (07:27→20:12)
[2019-06-26] MEDS: Insulin LISPRO 300 UNITS/3 ML VIAL SQ SCH ×4 (09:27→20:40)
[2019-06-26] MEDS: Bumetanide 1 MG/4 ML VIAL IVP SCH ×2 (09:37→17:56)
[2019-06-26] MEDS: Fluticasone Propionate Nasal 50 MCG/SPRAY BOTTLE NS SCH (09:38)
[2019-06-26] MEDS: *HR* Amiodarone 200 MG TABLET PO SCH (09:38)
[2019-06-26] MEDS: Diltiazem CD (24hr) 180 MG CAPSULE PO SCH (09:38)
[2019-06-26] MEDS: MethylPREDNISolone 40 MG/ML VIAL IVP SCH (09:39)
[2019-06-26] MEDS: GuaiFENesin/Dextromethorphan TABLET PO SCH ×2 (09:39→20:36)
[2019-06-26] MEDS: rOPINIRole 0.25 MG TABLET PO SCH ×2 (09:39→20:36)
[2019-06-26] MEDS: carvediloL 6.25 MG TABLET PO SCH ×2 (09:48→20:36)
[2019-06-26] MEDS: Piperacillin/Tazobactam 3.375 GM in 0.9 % Sodium Chloride Mini Bag 100 ML IVPB SCH ×2 (15:59→23:53)
[2019-06-26] MEDS ORDERED: *HR* Warfarin 5 MG TABLET PO ONE (18:00)
[2019-06-26] MEDS: Warfarin perPT PO SCH (18:07)
[2019-06-26] MEDS: Insulin DETEMIR 100 UNIT/ML X5UNITS SQ SCH (20:38)
[2019-06-26] MEDS: Acetaminophen 325 MG TABLET PO PRN (22:17)
[2019-06-27] MEDS: Ipratropium/Albuterol Neb 3 ML IH SCH ×7 (00:08→23:55)
[2019-06-27 05:40] LABS: Hematocrit 33.5 % (37.5-50.1); Hemoglobin 9.7 g/dL (12.9-16.9); Mean Corpuscular Hemoglobin 26.6 pg (28.0-33.3); Mean Corpuscular Volume 91.8 fL (83.0-100.0); Mean Platelet Volume 9.4 fL (9.4-12.4); Platelet Count 367 K/mcL (140-400); Prothrombin Time 23.3 Seconds (9.4-12.1); Red Blood Count 3.65 M/mcL (4.19-5.50); Red Cell Distribution Width 14.6 % (11.5-14.5); White Blood Count 11.1 K/mcL (4.3-11.1)
[2019-06-27 05:52] LABS: BUN/Creatinine Ratio 34 (6-26); Blood Urea Nitrogen 24 mg/dL (6-20); Calcium 8.5 mg/dL (8.6-10.3); Carbon Dioxide > 45 mEq/L (23-29); Chloride 88 mEq/L (98-107); Glucose 223 mg/dL (70-105); Osmolality,Calculated 309 (280-300); Potassium 4.2 mEq/L (3.5-5.1); Sodium 144 mEq/L (136-145); eGFR For African Americans > 60 (> 60); eGFR For Non-African Americans > 60 (> 60)
[2019-06-27] MEDS: Budesonide/Formoterol 80/4.5 1 PUFF INH IH SCH ×2 (07:12→20:07)
[2019-06-27] MEDS: Bumetanide 1 MG/4 ML VIAL IVP SCH ×2 (08:43→17:59)
[2019-06-27] MEDS: MethylPREDNISolone 40 MG/ML VIAL IVP SCH (08:43)
[2019-06-27] MEDS: Insulin LISPRO 300 UNITS/3 ML VIAL SQ SCH ×4 (08:44→20:15)
[2019-06-27] MEDS: Fluticasone Propionate Nasal 50 MCG/SPRAY BOTTLE NS SCH (08:44)
[2019-06-27] MEDS: carvediloL 6.25 MG TABLET PO SCH ×2 (08:45→20:14)
[2019-06-27] MEDS: rOPINIRole 0.25 MG TABLET PO SCH ×2 (08:45→20:14)
[2019-06-27] MEDS: *HR* Amiodarone 200 MG TABLET PO SCH (08:45)
[2019-06-27] MEDS: Diltiazem CD (24hr) 180 MG CAPSULE PO SCH (08:46)
[2019-06-27] MEDS: Piperacillin/Tazobactam 3.375 GM in 0.9 % Sodium Chloride Mini Bag 100 ML IVPB SCH ×2 (08:46→18:02)
[2019-06-27] MEDS: GuaiFENesin/Dextromethorphan TABLET PO SCH ×2 (08:46→20:13)
[2019-06-27] MEDS ORDERED: WARFARIN PO ONE (18:00)
[2019-06-27] MEDS: Warfarin perPT PO SCH (18:04)
[2019-06-27] MEDS: Insulin DETEMIR 100 UNIT/ML X5UNITS SQ SCH (20:14)
[2019-06-28] MEDS: Piperacillin/Tazobactam 3.375 GM in 0.9 % Sodium Chloride Mini Bag 100 ML IVPB SCH ×3 (00:31→17:08)
[2019-06-28] MEDS: Ipratropium/Albuterol Neb 3 ML IH SCH ×5 (03:29→20:19)
[2019-06-28] MEDS: Acetaminophen 325 MG TABLET PO PRN (04:21)
[2019-06-28 05:04] LABS: Hematocrit 33.9 % (37.5-50.1); Hemoglobin 9.7 g/dL (12.9-16.9); INR 2.3; Mean Corpuscular HGB Conc 28.6 g/dL (31.6-35.5); Mean Corpuscular Hemoglobin 26.1 pg (28.0-33.3); Mean Corpuscular Volume 91.1 fL (83.0-100.0); Mean Platelet Volume 9.1 fL (9.4-12.4); Platelet Count 361 K/mcL (140-400); Prothrombin Time 26.3 Seconds (9.4-12.1); Red Blood Count 3.72 M/mcL (4.19-5.50); Red Cell Distribution Width 14.6 % (11.5-14.5); White Blood Count 12.3 K/mcL (4.3-11.1)
[2019-06-28 05:23] LABS: BUN/Creatinine Ratio 33 (6-26); Blood Urea Nitrogen 25 mg/dL (6-20); Calcium 8.6 mg/dL (8.6-10.3); Carbon Dioxide > 45 mEq/L (23-29); Chloride 88 mEq/L (98-107); Glucose 159 mg/dL (70-105); Magnesium 1.9 mg/dL (1.6-2.6); Osmolality,Calculated 298 (280-300); Potassium 4.3 mEq/L (3.5-5.1); Sodium 140 mEq/L (136-145); eGFR For African Americans > 60 (> 60); eGFR For Non-African Americans > 60 (> 60)
[2019-06-28] MEDS: tiZANidine 4 MG TABLET PO PRN (07:16)
[2019-06-28 07:32] VITALS: BP 130/71
[2019-06-28] MEDS: Budesonide/Formoterol 80/4.5 1 PUFF INH IH SCH ×2 (07:42→20:20)
[2019-06-28] MEDS ORDERED: predniSONE 20 MG TABLET PO SCH (09:00)
[2019-06-28] MEDS: carvediloL 6.25 MG TABLET PO SCH (09:17)
[2019-06-28] MEDS: Diltiazem CD (24hr) 180 MG CAPSULE PO SCH (09:17)
[2019-06-28] MEDS: Bumetanide 1 MG/4 ML VIAL IVP SCH (09:18)
[2019-06-28] MEDS: GuaiFENesin/Dextromethorphan TABLET PO SCH (09:18)
[2019-06-28] MEDS: rOPINIRole 0.25 MG TABLET PO SCH (09:18)
[2019-06-28] MEDS: *HR* Amiodarone 200 MG TABLET PO SCH (09:18)
[2019-06-28] MEDS: Fluticasone Propionate Nasal 50 MCG/SPRAY BOTTLE NS SCH (09:19)
[2019-06-28] MEDS: Insulin LISPRO 300 UNITS/3 ML VIAL SQ SCH ×3 (09:19→17:07)
[2019-06-28] MEDS ORDERED: *HR* Warfarin 5 MG TABLET PO ONE (18:00)
[2019-06-28] MEDS ORDERED: *HR* Warfarin 5 MG TABLET PO SCH (18:00)
== END 2019-06-28 19:20 | DRG 291 ==
LOC: 2NENU → SUATTDRO 04:15 → 2NENU 04:42 → SUATTDRO 06-13 12:52 → ICNU 06-14 15:10 → 2NENU 06-16 16:05
PROVIDERS: ADMIT Internal Medicine; ATTEND Internal Medicine

== ENCOUNTER 2019-07-06 17:50 | Inpatient (IN) ==
[2019-07-06] MEDS ORDERED: Naloxone 0.4 MG/ML INJ IVP PRN (23:59)
[2019-07-06] MEDS ORDERED: Ondansetron 4 MG/2 ML VIAL IVP PRN (23:59)
[2019-07-07] MEDS ORDERED: D5% in Water 1,000 ML IVC PRN (00:08)
[2019-07-07] MEDS ORDERED: *HR* Dextrose 50 % in Water (Syg) 50 ML SYRINGE IVP PRN (00:08)
[2019-07-07] MEDS ORDERED: Dextrose Gel 15 GM/37.5 ML TUBE PO PRN ×2 (00:08)
[2019-07-07 00:38] LABS: Basophils % 0.2 %; Eosinophils % 0.1 %; Hematocrit 36.7 % (37.5-50.1); Hemoglobin 10.3 g/dL (12.9-16.9); Immature Granulocytes % 0.5 % (0-4); Lymphocytes # 0.9 K/mcL (0.6-4.6); Lymphocytes % 7.4 %; Mean Corpuscular HGB Conc 28.1 g/dL (31.6-35.5); Mean Corpuscular Volume 92.7 fL (83.0-100.0); Mean Platelet Volume 9.5 fL (9.4-12.4); Monocytes # 1.1 K/mcL (0.0-1.3); Monocytes % 9.5 %; Neutrophils # 9.8 K/mcL (1.6-8.9); Platelet Count 185 K/mcL (140-400); Red Blood Count 3.96 M/mcL (4.19-5.50); Red Cell Distribution Width 15.3 % (11.5-14.5); Segmented Neutrophils % 82.3 %; White Blood Count 11.9 K/mcL (4.3-11.1)
[2019-07-07 00:57] LABS: BUN/Creatinine Ratio 45 (6-26); Blood Urea Nitrogen 26 mg/dL (6-20); Calcium 8.9 mg/dL (8.6-10.3); Carbon Dioxide > 45 mEq/L (23-29); Chloride 84 mEq/L (98-107); Glucose 75 mg/dL (70-105); Magnesium 2.1 mg/dL (1.6-2.6); Osmolality,Calculated 299 (280-300); Potassium 3.9 mEq/L (3.5-5.1); Sodium 143 mEq/L (136-145); eGFR For African Americans > 60 (> 60); eGFR For Non-African Americans > 60 (> 60)
[2019-07-07 01:07] LABS: Hypochromasia Present (Not Present); Microcytosis Present (Not Present); Platelet Estimate Normal (Normal)
[2019-07-07 01:08] LABS: Macrocytosis Present (Not Present)
[2019-07-07] MEDS: Furosemide 40 MG/4 ML VIAL IVP SCH ×3 (01:25→21:19)
[2019-07-07 06:24] LABS: INR 6.1; Prothrombin Time 69.1 Seconds (9.4-12.1)
[2019-07-07] MEDS: Insulin LISPRO 300 UNITS/3 ML VIAL SQ SCH ×2 (08:15→11:50)
[2019-07-07] MEDS: Fluticasone Propionate Nasal 50 MCG/SPRAY BOTTLE NS SCH (09:09)
[2019-07-07] MEDS: GuaiFENesin/Dextromethorphan TABLET PO SCH ×2 (09:09→21:17)
[2019-07-07] MEDS: *HR* Amiodarone 200 MG TABLET PO SCH (09:09)
[2019-07-07] MEDS ORDERED: *HR* Metoprolol 5 MG/5 ML VIAL IVP ONE (09:23)
[2019-07-07] MEDS ORDERED: *HR* Labetalol 20 MG/4 ML SYRINGE IVP ONE ×2 (12:06→12:22)
[2019-07-07] MEDS: Levalbuterol Neb 0.63 MG/3 ML IH SCH ×2 (16:26→21:56)
[2019-07-07] MEDS ORDERED: carvediloL 6.25 MG TABLET PO SCH (17:00)
[2019-07-07] MEDS ORDERED: Warfarin perPT PO PRN (18:00)
[2019-07-07] MEDS ORDERED: Insulin LISPRO 300 UNITS/3 ML VIAL SQ SCH (21:00)
[2019-07-07] MEDS ORDERED: *HR* Warfarin 2.5 MG TABLET PO SCH (21:00)
[2019-07-07] MEDS ORDERED: *HR* Warfarin 3 MG TABLET PO SCH (21:00)
[2019-07-08] MEDS: Levalbuterol Neb 0.63 MG/3 ML IH SCH ×4 (04:20→22:32)
[2019-07-08 06:41] LABS: Eosinophils % 0.2 %; Mean Corpuscular HGB Conc 27.4 g/dL (31.6-35.5)
[2019-07-08 06:42] LABS: Basophils % 0.2 %; Hematocrit 36.1 % (37.5-50.1); Hemoglobin 9.9 g/dL (12.9-16.9); Immature Granulocytes % 0.3 % (0-4); Lymphocytes # 0.6 K/mcL (0.6-4.6); Lymphocytes % 5.7 %; Mean Corpuscular Hemoglobin 26.5 pg (28.0-33.3); Mean Corpuscular Volume 96.5 fL (83.0-100.0); Mean Platelet Volume 9.5 fL (9.4-12.4); Monocytes # 0.9 K/mcL (0.0-1.3); Monocytes % 8.8 %; Platelet Count 164 K/mcL (140-400); Red Blood Count 3.74 M/mcL (4.19-5.50); Red Cell Distribution Width 15.4 % (11.5-14.5); Segmented Neutrophils % 84.8 %; White Blood Count 10.2 K/mcL (4.3-11.1)
[2019-07-08 06:45] LABS: Neutrophils # 8.7 K/mcL (1.6-8.9)
[2019-07-08 07:00] LABS: INR 5.7; Prothrombin Time 64.9 Seconds (9.4-12.1)
[2019-07-08 07:07] LABS: Platelet Estimate Normal (Normal)
[2019-07-08 08:36] LABS: BUN/Creatinine Ratio 56 (6-26); Blood Urea Nitrogen 30 mg/dL (6-20); Calcium 9.1 mg/dL (8.6-10.3); Carbon Dioxide > 45 mEq/L (23-29); Chloride 84 mEq/L (98-107); Glucose 113 mg/dL (70-105); Osmolality,Calculated 309 (280-300); Potassium 3.9 mEq/L (3.5-5.1); Sodium 146 mEq/L (136-145); eGFR For African Americans > 60 (> 60); eGFR For Non-African Americans > 60 (> 60)
[2019-07-08] MEDS: *HR* Amiodarone 200 MG TABLET PO SCH (09:52)
[2019-07-08] MEDS: Furosemide 40 MG/4 ML VIAL IVP SCH ×2 (09:52→21:42)
[2019-07-08] MEDS: Diltiazem CD (24hr) 180 MG CAPSULE PO SCH (09:52)
[2019-07-08] MEDS: GuaiFENesin/Dextromethorphan TABLET PO SCH ×2 (09:52→21:40)
[2019-07-08] MEDS: carvediloL 6.25 MG TABLET PO SCH ×2 (09:52→18:09)
[2019-07-08] MEDS: Fluticasone Propionate Nasal 50 MCG/SPRAY BOTTLE NS SCH (09:53)
[2019-07-09 03:13] LABS: INR 5.8; Prothrombin Time 66.6 Seconds (9.4-12.1)
[2019-07-09 03:21] LABS: Basophils % 0.1 %; Immature Granulocytes % 0.4 % (0-4)
[2019-07-09 03:22] LABS: Eosinophils % 0.4 %; Hematocrit 34.8 % (37.5-50.1); Hemoglobin 9.4 g/dL (12.9-16.9); Lymphocytes # 0.5 K/mcL (0.6-4.6); Lymphocytes % 6.7 %; Mean Corpuscular Hemoglobin 25.8 pg (28.0-33.3); Mean Corpuscular Volume 95.6 fL (83.0-100.0); Mean Platelet Volume 9.8 fL (9.4-12.4); Monocytes # 0.8 K/mcL (0.0-1.3); Monocytes % 9.8 %; Platelet Count 152 K/mcL (140-400); Red Blood Count 3.64 M/mcL (4.19-5.50); Red Cell Distribution Width 15.2 % (11.5-14.5); Segmented Neutrophils % 82.6 %; White Blood Count 7.9 K/mcL (4.3-11.1)
[2019-07-09 03:32] LABS: BUN/Creatinine Ratio 46 (6-26); Blood Urea Nitrogen 26 mg/dL (6-20); Calcium 8.9 mg/dL (8.6-10.3); Carbon Dioxide > 45 mEq/L (23-29); Chloride 84 mEq/L (98-107); Glucose 128 mg/dL (70-105); Osmolality,Calculated 302 (280-300); Potassium 3.7 mEq/L (3.5-5.1); Sodium 143 mEq/L (136-145); eGFR For African Americans > 60 (> 60); eGFR For Non-African Americans > 60 (> 60)
[2019-07-09] MEDS: Levalbuterol Neb 0.63 MG/3 ML IH SCH ×4 (03:34→21:59)
[2019-07-09 03:59] LABS: Neutrophils # 6.5 K/mcL (1.6-8.9)
[2019-07-09 05:05] LABS: Anisocytosis 1+ (Not Present); Microcytosis Present (Not Present); Platelet Estimate Normal (Normal)
[2019-07-09] MEDS: GuaiFENesin/Dextromethorphan TABLET PO SCH ×2 (09:03→20:29)
[2019-07-09] MEDS: Diltiazem CD (24hr) 180 MG CAPSULE PO SCH (09:03)
[2019-07-09] MEDS: *HR* Amiodarone 200 MG TABLET PO SCH (09:04)
[2019-07-09] MEDS: Furosemide 40 MG/4 ML VIAL IVP SCH ×2 (09:04→20:29)
[2019-07-09] MEDS: carvediloL 6.25 MG TABLET PO SCH ×2 (09:04→16:56)
[2019-07-09] MEDS: Fluticasone Propionate Nasal 50 MCG/SPRAY BOTTLE NS SCH (09:06)
[2019-07-09] MEDS: rOPINIRole 0.25 MG TABLET PO SCH ×2 (11:34→20:29)
[2019-07-09] MEDS ORDERED: NON-FORMULARY MEDICATION 1 EACH EACH (Ropinirole Hcl [Requip] 0.5 MG) PO SCH (21:00)
[2019-07-10] MEDS: Levalbuterol Neb 0.63 MG/3 ML IH SCH ×4 (03:42→21:34)
[2019-07-10 05:25] LABS: Eosinophils % 0.6 %; Lymphocytes % 6.5 %; Monocytes % 9.6 %
[2019-07-10 05:26] LABS: INR 3.4; Prothrombin Time 38.8 Seconds (9.4-12.1)
[2019-07-10 05:27] LABS: Basophils % 0.2 %; Eosinophils # 0.1 K/mcL (0.0-0.6); Hematocrit 35.4 % (37.5-50.1); Immature Granulocytes % 0.8 % (0-4); Lymphocytes # 0.6 K/mcL (0.6-4.6); Mean Corpuscular HGB Conc 28.2 g/dL (31.6-35.5); Mean Corpuscular Hemoglobin 26.2 pg (28.0-33.3); Mean Corpuscular Volume 92.9 fL (83.0-100.0); Mean Platelet Volume 9.5 fL (9.4-12.4); Monocytes # 0.9 K/mcL (0.0-1.3); Neutrophils # 7.8 K/mcL (1.6-8.9); Platelet Count 171 K/mcL (140-400); Red Blood Count 3.81 M/mcL (4.19-5.50); Red Cell Distribution Width 15.4 % (11.5-14.5); Segmented Neutrophils % 82.3 %; White Blood Count 9.5 K/mcL (4.3-11.1)
[2019-07-10 06:04] LABS: BUN/Creatinine Ratio 39 (6-26); Blood Urea Nitrogen 25 mg/dL (6-20); Calcium 9.1 mg/dL (8.6-10.3); Carbon Dioxide > 45 mEq/L (23-29); Chloride 83 mEq/L (98-107); Glucose 124 mg/dL (70-105); Osmolality,Calculated 306 (280-300); Potassium 3.8 mEq/L (3.5-5.1); Sodium 145 mEq/L (136-145); eGFR For African Americans > 60 (> 60); eGFR For Non-African Americans > 60 (> 60)
[2019-07-10 06:19] LABS: Hypochromasia Present (Not Present)
[2019-07-10 06:20] LABS: Basophilic Stippling 1+ (Not Present); Polychromasia 1+ (Not Present)
[2019-07-10 06:21] LABS: Platelet Estimate Normal (Normal)
[2019-07-10] MEDS: rOPINIRole 0.25 MG TABLET PO SCH ×2 (09:31→23:24)
[2019-07-10] MEDS: *HR* Amiodarone 200 MG TABLET PO SCH (09:32)
[2019-07-10] MEDS: Diltiazem CD (24hr) 180 MG CAPSULE PO SCH (09:32)
[2019-07-10] MEDS: GuaiFENesin/Dextromethorphan TABLET PO SCH ×2 (09:32→23:24)
[2019-07-10] MEDS: carvediloL 6.25 MG TABLET PO SCH ×2 (09:32→18:28)
[2019-07-10] MEDS: Furosemide 40 MG/4 ML VIAL IVP SCH ×2 (09:32→23:24)
[2019-07-10] MEDS: metOLazone 2.5 MG TABLET PO SCH (13:25)
[2019-07-11] MEDS: Levalbuterol Neb 0.63 MG/3 ML IH SCH ×4 (04:04→22:00)
[2019-07-11 07:14] LABS: Hematocrit 35.8 % (37.5-50.1); Hemoglobin 9.7 g/dL (12.9-16.9); Mean Corpuscular HGB Conc 27.1 g/dL (31.6-35.5); Mean Corpuscular Hemoglobin 26.1 pg (28.0-33.3); Mean Corpuscular Volume 96.2 fL (83.0-100.0); Mean Platelet Volume 9.4 fL (9.4-12.4); Platelet Count 162 K/mcL (140-400); Red Blood Count 3.72 M/mcL (4.19-5.50); Red Cell Distribution Width 15.4 % (11.5-14.5); White Blood Count 9.1 K/mcL (4.3-11.1)
[2019-07-11 07:21] LABS: INR 3.8
[2019-07-11 07:24] LABS: Prothrombin Time 43.3 Seconds (9.4-12.1)
[2019-07-11] MEDS: Fluticasone Propionate Nasal 50 MCG/SPRAY BOTTLE NS SCH ×2 (10:16→21:57)
[2019-07-11] MEDS: GuaiFENesin/Dextromethorphan TABLET PO SCH ×2 (10:17→21:42)
[2019-07-11] MEDS: rOPINIRole 0.25 MG TABLET PO SCH ×2 (10:17→21:42)
[2019-07-11] MEDS: *HR* Amiodarone 200 MG TABLET PO SCH (10:17)
[2019-07-11] MEDS: metOLazone 2.5 MG TABLET PO SCH (10:17)
[2019-07-11] MEDS: Furosemide 40 MG/4 ML VIAL IVP SCH ×2 (10:17→21:43)
[2019-07-11] MEDS: Diltiazem CD (24hr) 180 MG CAPSULE PO SCH (10:17)
[2019-07-11] MEDS: carvediloL 6.25 MG TABLET PO SCH ×2 (10:17→18:06)
[2019-07-11 15:35] LABS: BUN/Creatinine Ratio 42 (6-26); Blood Urea Nitrogen 20 mg/dL (6-20); Calcium 9.2 mg/dL (8.6-10.3); Carbon Dioxide > 45 mEq/L (23-29); Chloride 78 mEq/L (98-107); Glucose 118 mg/dL (70-105); Magnesium 1.8 mg/dL (1.6-2.6); Osmolality,Calculated 304 (280-300); Potassium 3.3 mEq/L (3.5-5.1); Sodium 145 mEq/L (136-145); eGFR For African Americans > 60 (> 60); eGFR For Non-African Americans > 60 (> 60)
[2019-07-12] MEDS: Levalbuterol Neb 0.63 MG/3 ML IH SCH ×3 (04:08→16:23)
[2019-07-12] MEDS: carvediloL 6.25 MG TABLET PO SCH (08:22)
[2019-07-12] MEDS: Diltiazem CD (24hr) 180 MG CAPSULE PO SCH (08:22)
[2019-07-12] MEDS: GuaiFENesin/Dextromethorphan TABLET PO SCH (08:22)
[2019-07-12] MEDS: *HR* Amiodarone 200 MG TABLET PO SCH (08:22)
[2019-07-12] MEDS: rOPINIRole 0.25 MG TABLET PO SCH (08:22)
[2019-07-12] MEDS ORDERED: metOLazone 2.5 MG TABLET PO SCH (08:30)
[2019-07-12] MEDS: Furosemide 40 MG/4 ML VIAL IVP SCH (10:32)
[2019-07-12] MEDS: Fluticasone Propionate Nasal 50 MCG/SPRAY BOTTLE NS SCH (10:32)
[2019-07-12] MEDS ORDERED: Furosemide 80 MG in 0.9 % Sodium Chloride 50 ML IVPB ONE (13:50)
[2019-07-12 16:05] VITALS: BP 124/85
[2019-07-12] MEDS ORDERED: *HR* EPINEPHrine 1 MG/10 ML SYRINGE IVP ONE ×2 (23:22)
[2019-07-12] MEDS ORDERED: *HR* Amiodarone 150 MG/3 ML VIAL IVPB ONE (23:22)
== END 2019-07-12 23:23 | disposition expired | DRG 291 ==
LOC: 2NENU → SUATTDRO 21:05
PROVIDERS: ADMIT Family Medicine; ATTEND Internal Medicine